=== PATIENT | female | born 1965 | race Caucasian/White ===

== ENCOUNTER 2022-11-12 07:26 | Day surgery (SDC) | payer BC, SELFPAY ==
[2022-11-12 07:46] VITALS: BP 145/68; PULSE 70; RESP 16; TEMP 36.5; O2SAT 99; BMI 33.1
[2022-11-12 07:55] LABS: Glucometer 156 mg/dL (74-106)
[2022-11-12] MEDS: LACTATED RINGER'S SOLUTION 1,000 ML 50 ML IV (07:56)
[2022-11-12 08:40] VITALS: BP 108/60; PULSE 68; RESP 16; O2SAT 97
--- NOTE | 2022-11-12 08:46 | PM.GSPRC ---
Date of procedure: 11/12/22 Indications for Procedure: This patient is a 56-year-old female who presents for screening colonoscopy. the risks benefits options and potential complications of the procedure were discussed in detail with the patient and they agreed to proceed and consent was signed. Pre-op diagnosis: colon cancer screening Post-op diagnosis: other (diverticuloss) Procedure: colonoscopy Anesthesia: MAC Surgeon: Abhishek Rodriguez Procedure Summary: The patient was brought to the endoscopy suite and placed in the left lateral decubitus position.? Under MAC the fiberoptic colonoscope was introduced into the rectum. This was gradually advanced through the colon to the cecum. The cecal landmarks were identified. The bowel prep was good. Gradual withdrawal of the colonoscope was then undertaken. No vascular polypoid or mucosal lesions were noted throughout the entire length of the colon. In the descending colon there were scattered diverticuli. The anal rectal canal was unremarkable. The colon was decompressed. Digital rectal exam was unremarkable. The procedure was ended and the patient was transferred to the recovery area in stable condition. Recommended follow-up colonoscopy in ten years. Estimated blood loss (mL): 0 Specimens: none Complications: No
[2022-11-12 08:55] VITALS: BP 146/75; PULSE 72; RESP 20; O2SAT 97
[2022-11-12 09:10] VITALS: BP 146/76; PULSE 68; RESP 20; O2SAT 99
== END 2022-11-12 09:20 | disposition home or self-care (01) ==
PROVIDERS: PCP Family Medicine; Visit Provider Surgery
PROC: (CPT 45378; principal; 2022-11-12 08:30)
DX: Z12.11 Encounter for screening for malignant neoplasm of colon (principal); K57.30 Diverticulosis of large intestine without perforation or abscess without bleeding; Z79.84 Long term (current) use of oral hypoglycemic drugs; E03.9 Hypothyroidism, unspecified
CPT/HCPCS: 45378; 36415; 82948; J2704

== ENCOUNTER 2022-11-19 09:30 | Outpatient (OUT) | payer BC, SELFPAY ==
--- NOTE | 2022-11-19 | ECG_ITS ---
The [facility] Test Date: 2022-11-19 Pat Name: Neha Hurtado Department: Room: - Gender: Female [employer]: : 1965 Requested By: KLAUDIA GOMEZ Order Number: [id number] Reading MD: RAZA ROMO Measurements Intervals [place] Rate: 62 P: 43 TX: 165 QRS: 32 QRSD: 93 T: 63 QT: 390 QTc: 397 Interpretive Statements SINUS RHYTHM NONSPECIFIC T-WAVE ABNORMALITY No previous ECG available for comparison Electronically Signed On 11-20-2022 14:31:16 EDT by RAZA ROMO
--- NOTE | 2022-11-19 09:43 | XR_ITS ---
The [address] [address] Patient Name: JEANNETTE BORJAS MRN: [id number] date: 1965 Sex: F Assigned Patient Location: CARD Current Patient Location: CARD Accession/Order Number: [id number] Exam Date: 11/19/2022 09:58 Report Date: 11/19/2022 10:17 At the request of: KLAUDIA GOMEZ Procedure: XR chest 2V EXAM: XR chest 2V HISTORY: Chronic cough R05.3 COMPARISON: None. TECHNIQUE: PA and lateral views of the chest. FINDINGS: The cardiomediastinal silhouette is normal. No focal consolidation is identified. There is no pneumothorax. No pleural effusion is noted. The osseous structures are intact. IMPRESSION: No acute cardiopulmonary process. Electronically authenticated by: JUWAN YOUNG Date: 11/19/2022 10:17
== END 2022-11-19 09:31 | disposition home or self-care (01) ==
LOC: CARD 09:31
PROVIDERS: PCP Family Medicine; Visit Provider Family Medicine
DX: R53.83 Other fatigue (principal); R05.3 Chronic cough
CPT/HCPCS: 71046; 93005

== ENCOUNTER 2023-01-05 11:04 | Outpatient (OUT) | payer BC, SELFPAY ==
[2023-01-05 11:33] LABS: Basophils Absolute Auto 0.1 10^3/uL (0.0-0.1); Basophils Percent Auto 0.5 % (0.2-2.0); Eosinophils Absolute Auto 0.2 10^3/uL (0.0-0.7); Eosinophils Percent Auto 2.1 % (0.9-7.0); Hematocrit 35.6 % (36.0-48.0); Hemoglobin 11.2 g/dL (12.0-16.0); Immature Granulocytes Abs Auto 0.02 10^3/uL (0.00-0.03); Immature Granulocytes Pct Auto 0.2 % (0.0-0.5); Lymphocytes Absolute Auto 2.5 10^3/uL (1.2-3.8); Lymphocytes Percent Auto 27.8 % (20.5-60.0); Mean Corpuscular HGB Conc 31.5 g/dL (29.9-35.2); Mean Corpuscular Hemoglobin 26.6 pg (26.7-34.0); Mean Corpuscular Volume 84.6 fL (81.0-99.0); Mean Platelet Volume 9.8 fL (9.5-13.5); Monocytes Absolute Auto 0.6 10^3/uL (0.3-0.8); Monocytes Percent Auto 6.9 % (1.7-12.0); Neutrophils Absolute Auto 5.7 10^3/uL (1.4-6.5); Neutrophils Percent Auto 62.5 % (43.0-75.0); Platelet Count 277 10^3/uL (150-450); Red Blood Count 4.21 10^6/uL (4.20-5.40); Red Cell Distribution Width 15.5 % (11.0-15.0); White Blood Count 9.2 10^3/uL (4.0-11.0)
[2023-01-05 12:03] LABS: Estimated Average Glucose 143 mg/dL; Glycohemoglobin A1C 6.6 % (4.5-6.2)
[2023-01-05 13:10] LABS: Free T4 0.92 ng/dL (0.76-1.46)
[2023-01-05 14:58] LABS: Anion Gap 13.4; BUN Creatinine Ratio 17.2; Calcium 9.4 mg/dL (8.5-10.1); Carbon Dioxide 27.7 mmol/L (21.0-32.0); Chloride 102 mmol/L (98-107); Estimated GFR (African America >60 (>=60); Estimated GFR (Non-African Ame >60 (>=60); Glucose 125 mg/dL (74-106); Potassium 4.1 mmol/L (3.5-5.1); Sodium 139 mmol/L (136-145); Thyroid Stimulating Hormone 2.448 uIU/mL (0.358-3.740)
== END 2023-01-05 11:05 | disposition home or self-care (01) ==
LOC: LAB 11:06
PROVIDERS: PCP Family Medicine; Visit Provider Family Medicine
DX: E03.9 Hypothyroidism, unspecified (principal); E11.65 Type 2 diabetes mellitus with hyperglycemia; D64.9 Anemia, unspecified
CPT/HCPCS: 36415; 80048; 83036; 84439; 84443; 85025

== ENCOUNTER 2023-02-09 19:33 | Outpatient (REF) | payer BC, SELFPAY ==
[2023-02-14 17:07] LABS: Age Gdln ACOG Testing Note (.); HPV Aptima Negative (Negative); IGP, Aptima HPV, rfx 16/18,45 Note (.)
== END 2023-02-09 19:34 | disposition home or self-care (01) ==
LOC: LAB 19:33
PROVIDERS: PCP Family Medicine; Visit Provider Physician Assistant
DX: Z12.4 Encounter for screening for malignant neoplasm of cervix (principal)
CPT/HCPCS: 87624; G0145

== ENCOUNTER 2023-09-03 07:50 | Outpatient (OUT) | payer BC, SELFPAY ==
--- NOTE | 2023-09-03 07:53 | XR_ITS ---
The [address] [address] Patient Name: LORY BORJAS MRN: [id number] date: 1965 Sex: F Assigned Patient Location: [facility] Current Patient Location: Accession/Order Number: [id number] Exam Date: 09/03/2023 08:20 Report Date: 09/04/2023 06:05 At the request of: KLAUDIA GOMEZ Procedure: XR chest 2V EXAMINATION: XR chest 2V HISTORY: Chronic cough R05.3 COMPARISON: No relevant comparison available. FINDINGS: LUNGS: No significant pulmonary parenchymal abnormalities. VASCULATURE: No increased pulmonary vasculature. PLEURA: No pneumothorax, effusion, or pleural thickening. CARDIAC: No cardiomegaly or cardiac silhouette abnormality. MEDIASTINUM: No visible mass or adenopathy. BONES: No fracture or visible bone lesion. OTHER: Negative. XR/XR chest 2V IMPRESSION: 1. Normal examination. Electronically authenticated by: DREW AGRAWAL Date: 09/04/2023 06:05
== END 2023-09-03 07:51 | disposition home or self-care (01) ==
LOC: RAD 07:50
PROVIDERS: PCP Family Medicine; Visit Provider Family Medicine
DX: R05.3 Chronic cough (principal); R53.82 Chronic fatigue, unspecified
CPT/HCPCS: 36415; 71046; 82306; 84443

== ENCOUNTER 2023-10-08 14:26 | Emergency (ER) | payer BC, SELFPAY ==
[2023-10-08] VITALS (11 sets, daily range): BP systolic 121–150; BP diastolic 67–87; PULSE 74; TEMP 36.8; O2SAT 97–100; BMI 31.5
--- NOTE | 2023-10-08 15:00 | CT_ITS ---
The [address] [address] Patient Name: LORY BORJAS MRN: [id number] date: 1965 Sex: F Assigned Patient Location: ER Current Patient Location: ED.MAIN Accession/Order Number: [id number] Exam Date: 10/08/2023 15:11 Report Date: 10/08/2023 15:50 At the request of: PRIMITIVO BAILEY Procedure: CT head/brain wo con CT head/brain wo con, CT cervical spine wo con, 10/08/2023 3:11 PM EDT INDICATION: HEAD INJURY COMPARISON: There is no appropriate prior study for comparison. TECHNIQUE: Axial images of 3 mm are obtained from the base of the skull to vertex completed with Axial images of 2 mm are obtained from base of skull to T2 without contrast. Dose reduction techniques were achieved by using automated exposure control and/or adjustment of mA and/or kV according to patient size and/or use of iterative reconstruction technique. FINDINGS: The cerebral and cerebellar sulci as well as ventricular system are appropriate for age. There is no intracranial mass, mass effect, midline shift, intra or extra-axial fluid collection. No acute territorial infarction or hemorrhage is noted. The visualized portions of orbits, mastoid air cells as well as paranasal sinuses are unremarkable. There is no suspicious osteolytic or osteoblastic lesion. No acute fracture or dislocation is noted. Multilevel degenerative changes of cervical spine are noted. CT/CT head/brain wo con IMPRESSION: No acute intracranial process is identified. No acute fracture. Electronically authenticated by: CARRIE DELONG Date: 10/08/2023 15:50
--- NOTE | 2023-10-08 15:01 | CT_ITS ---
The [address] [address] Patient Name: LORY BORJAS MRN: [id number] date: 1965 Sex: F Assigned Patient Location: ER Current Patient Location: ED.MAIN Accession/Order Number: [id number] Exam Date: 10/08/2023 15:11 Report Date: 10/08/2023 15:50 At the request of: PRIMITIVO BAILEY Procedure: CT cervical spine wo con CT head/brain wo con, CT cervical spine wo con, 10/08/2023 3:11 PM EDT INDICATION: HEAD INJURY COMPARISON: There is no appropriate prior study for comparison. TECHNIQUE: Axial images of 3 mm are obtained from the base of the skull to vertex completed with Axial images of 2 mm are obtained from base of skull to T2 without contrast. Dose reduction techniques were achieved by using automated exposure control and/or adjustment of mA and/or kV according to patient size and/or use of iterative reconstruction technique. FINDINGS: The cerebral and cerebellar sulci as well as ventricular system are appropriate for age. There is no intracranial mass, mass effect, midline shift, intra or extra-axial fluid collection. No acute territorial infarction or hemorrhage is noted. The visualized portions of orbits, mastoid air cells as well as paranasal sinuses are unremarkable. There is no suspicious osteolytic or osteoblastic lesion. No acute fracture or dislocation is noted. Multilevel degenerative changes of cervical spine are noted. CT/CT cervical spine wo con IMPRESSION: No acute intracranial process is identified. No acute fracture. Electronically authenticated by: CARRIE DELONG Date: 10/08/2023 15:50
--- NOTE | 2023-10-08 16:39 | XR_ITS ---
The [address] [address] Patient Name: LORY BORJAS MRN: [id number] date: 1965 Sex: F Assigned Patient Location: ER Current Patient Location: ER Accession/Order Number: [id number] Exam Date: 10/08/2023 17:00 Report Date: 10/08/2023 17:44 At the request of: PRIMITIVO BAILEY Procedure: XR hand RT 2V EXAM: XR hand RT 2V HISTORY: injury COMPARISON: None. TECHNIQUE: 3 views of the right hand. FINDINGS: Bones: No acute fracture or aggressive appearing bony lesion. Joints: Normal alignment. No significant osteoarthritic change. Soft tissues: There is laceration overlying medial fifth digit. No radiopaque foreign body or gas is noted within the soft tissue. XR/XR hand RT 2V IMPRESSION: No evidence of fracture. Electronically authenticated by: JEFFREY ALVAREZ Date: 10/08/2023 17:44
--- NOTE | 2023-10-08 16:39 | XR_ITS ---
The [address] [address] Patient Name: LORY BORJAS MRN: [id number] date: 1965 Sex: F Assigned Patient Location: ER Current Patient Location: ER Accession/Order Number: [id number] Exam Date: 10/08/2023 17:00 Report Date: 10/08/2023 17:46 At the request of: PRIMITIVO BAILEY Procedure: XR knee RT 3V EXAM: XR knee RT 3V HISTORY: injury COMPARISON: None. TECHNIQUE: 3 views of the right knee. FINDINGS: Bones: No acute fracture or aggressive appearing bony lesion. Joints: Normal alignment. No effusion. No significant degenerative findings. Soft tissues: Unremarkable. XR/XR knee RT 3V IMPRESSION: No evidence of fracture. Electronically authenticated by: JEFFREY ALVAREZ Date: 10/08/2023 17:46
[2023-10-08] MEDS: ONDANSETRON PF 4 MG/2 ML VIAL IV (17:28)
[2023-10-08] MEDS: ADACEL DIPH,PERTUSS(ACELL),TET VAC/PF 0.5 ML ADULT SYRINGE IM (18:12)
[2023-10-08] MEDS: TRAMADOL HCL 50 MG TABLET PO (18:36)
[2023-10-08] MEDS: BACITRACIN OINTMENT 28.4 GM TUBE 1 APPLIC TOPICAL (18:53)
--- NOTE | 2023-10-09 08:07 | ED.GENADUL1 ---
HPI HPI - General Adult General Chief complaint: Head Injury Stated complaint: hand and face injury due to a fall Time Seen by Provider: 10/08/23 16:12 Source: patient Mode of arrival: walk-in Limitations: no limitations History of Present Illness HPI narrative: The patient mentioned that she had a trip on the sidewalk almost within the last hour, there was no loss of consciousness but he did she fell and hit her face and her right side of the body, she was complaining of right knee pain as well as right hand pain, there was no other injury she did have some nausea when she fell down and she does take Brilinta Related Data Home Medications ?Medication ?Instructions ?Recorded ?Confirmed esomeprazole magnesium 20 mg 20 mg PO DAILY 11/01/22 10/08/23 capsule,delayed release (Nexium) metformin 850 mg tablet 1,000 mg PO BID 11/01/22 10/08/23 sertraline 25 mg tablet 25 mg PO DAILY 11/01/22 10/08/23 aspirin 81 mg chewable tablet 1 tab PO DAILY 10/08/23 10/08/23 atorvastatin 40 mg tablet 40 mg PO BEDTIME 10/08/23 10/08/23 celecoxib 200 mg capsule 200 mg PO Q24H 10/08/23 10/08/23 lisinopril 5 mg tablet 5 mg PO DAILY 10/08/23 10/08/23 nitroglycerin 0.4 mg sublingual 0.4 mg sublingual Q5M PRN chest 10/08/23 10/08/23 tablet pain ticagrelor 90 mg tablet (Brilinta) 90 mg PO Q12H 10/08/23 10/08/23 Previous Rx's ?Medication ?Instructions ?Recorded tramadol 50 mg tablet 50 mg PO BID PRN pain 3 days #6 10/08/23 tabs Allergies Allergy/AdvReac Type Severity Reaction Status Date / Time prochlorperazine Allergy Agitated Verified 11/01/22 12:32 [From Compazine] Opioid HPI Opioid Management Most Recent Opioid Data: Last Pain Scale 8 10/08/23 18:36 Last JUL Pain Assessment 10/08/23 18:36 Review of Systems ROS Status of ROS 10 or more systems reviewed and unremarkable except as noted in history and below [facility] Medical History (Updated 10/08/23 @ 18:33 by Sonia Monique MD) Prophylactic gland removal ?Z40.00 - Encounter for prophylactic removal of unspecified organ (ICD-10) Menopause ?Z78.0 - Asymptomatic menopausal state (ICD-10) COVID-19 ?U07.1 - COVID-19 (ICD-10) Anxiety ?F41.9 - Anxiety disorder, unspecified (ICD-10) Prediabetes ?R73.03 - Prediabetes (ICD-10) Hypothyroidism ?E03.9 - Hypothyroidism, unspecified (ICD-10) Postoperative nausea and vomiting ?R11.2 - Nausea with vomiting, unspecified (ICD-10) ?Z98.890 - Other specified postprocedural states (ICD-10) Surgical History (Updated 11/01/22 @ 12:45 by Jennifer Caballero NP) H/O foot surgery ?Z98.890 - Other specified postprocedural states (ICD-10) Family History (Updated 11/01/22 @ 12:45 by Jennifer Caballero NP) Other Family history of heart disease Family history of hypertension Family history of myocardial infarction Social History (Updated 11/01/22 @ 12:34 by Jennifer Caballero NP) Within the past year, how often did you have a drink containing alcohol: 2-3 times a week Smoking status: Never smoker Non-prescribed substance use: denies use 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 General: Well-appearing and in no apparent distress. Skin: Warm, dry, no pallor noted. No rash. Head: Normocephalic, atraumatic. Neck: Supple, non-tender. Eye: Pupils are equal, round and EOMI. No scleral icterus. Ears, Nose, Mouth, and Throat: TM are clear, no nasal mucosal hypertrophy. Oral mucosa is moist, no posterior oropharynx erythema, uvula is mid-line Cardiovascular: Regular Rate and Rhythm without murmur, gallop or rub. Respiratory: No accessory muscle use or respiratory distress. Lungs are clear to auscultation, no wheezing, rales or rhonchi Chest Wall: no tenderness Back: No midline thoracic or lumbar vertebral tenderness. No CVA tenderness Musculoskeletal: normal ROM, no calf or popliteal tenderness, the patient have a old contusion to the right knee also consider contusion to the small finger on the right hand, there is a mild abrasion on the right knee that is measuring 1 to 2 cm superficial linear, the patient also have a small abrasion to the lateral aspect of the small finger mostly to the palmar aspect, there is also no limitation of movement of the right knee but there is pain with movement and the patient also have no limitation of movement of the right hand small finger although the patient have swelling that limiting full hand fist GI: Abdomen is soft, non-distended. Normal bowel sounds. No masses appreciated. No tenderness to palpation. No rebound, guarding, or rigidity noted. Neurological: A&O x4. No cranial nerve dysfunction observed. No truncal ataxia. Moves all extremities. Sensation intact. Psychiatric: Cooperative and interactive. Normal mood and affect. Constitutional Vital Signs, click to edit/add: Last Vital Signs Temp 98.3 F 10/08/23 14:51 Pulse 74 10/08/23 14:51 Resp 18 10/08/23 14:51 BP 136/75 10/08/23 18:00 Pulse Ox 98 10/08/23 18:00 O2 Del Method Room Air 10/08/23 14:51 Course Vital Signs Vital signs: Vital Signs Temperature 98.3 F 10/08/23 14:51 Pulse Rate 74 10/08/23 14:51 Respiratory Rate 18 10/08/23 14:51 Blood Pressure 150/77 H 10/08/23 14:51 Pulse Oximetry 98 10/08/23 14:51 Oxygen Delivery Method Room Air 10/08/23 14:51 Temperature 98.3 F 10/08/23 14:51 Pulse Rate 74 10/08/23 14:51 Respiratory Rate 18 10/08/23 14:51 Blood Pressure 136/75 10/08/23 18:00 Pulse Oximetry 98 10/08/23 18:00 Oxygen Delivery Method Room Air 10/08/23 14:51 Medical Decision Making MDM Narrative Medical decision making narrative: The patient needed a tetanus booster The patient CT head as well as CT cervical spine showed no acute pathology she was initially placed in cervical collar that was removed when the CT scan came back The patient also had a nausea medication with Zofran after which the patient provided with tramadol for the pain The patient was discharged home with tramadol as well as Mike wrap to the right knee with limitation of movement and rest, X-ray of the right hand showed no fracture as well as x-ray of the right knee The patient had a finger splint applied to the right small finger as well as cleaning the wound thoroughly and applying a Band-Aid The patient was instructed about being monitored as well as being brought to the ER in case of any new symptoms in the next 12 hours at least and because of her history of anticoagulation she is to be very cautious in case of any new symptoms she is to come back to the ER The patient is to follow up with primary care physician in next 2-3 days or to return to the emergency department should any of the signs or symptoms worsen or new symptoms develop. The patient agrees with the following Diagnosis and Treatment plan and the patient will be discharged home. Discharge Plan Discharge Stand Alone Forms: Portal Instructions Chief Complaint: Head Injury Clinical Impression: Contusion of finger, Contusion of knee, Closed head injury Patient Disposition: Home, Self-Care Time of Disposition Decision: 18:33 Condition: Good Prescriptions / Home Meds: New tramadol 50 mg tablet 50 mg PO BID PRN (Reason: pain ) 3 Days Qty: 6 0RF No Action sertraline 25 mg tablet 25 mg PO DAILY metformin 850 mg tablet 1,000 mg PO BID esomeprazole magnesium [Nexium] 20 mg capsule,delayed release(DR/EC) 20 mg PO DAILY atorvastatin 40 mg tablet 40 mg PO BEDTIME aspirin 81 mg tablet,chewable 1 tab PO DAILY celecoxib 200 mg capsule 200 mg PO Q24H lisinopril 5 mg tablet 5 mg PO DAILY nitroglycerin 0.4 mg tablet, sublingual 0.4 mg sublingual Q5M PRN (Reason: chest pain) Brilinta 90 mg tablet 90 mg PO Q12H Print Language: [place] Instructions: Head Injury (ED), Contusion in Adults (ED) Referrals: Fabiola Purvis MD [Primary Care Provider] - 1 week Discharge Date/Time: 10/08/23 18:56
== END 2023-10-08 18:56 | disposition home or self-care (01) ==
PROVIDERS: Emergency Provider Emergency Medicine; PCP Family Medicine
DX: S80.01XA Contusion of right knee, initial encounter (principal); S60.051A Contusion of right little finger without damage to nail, initial encounter; S09.8XXA Other specified injuries of head, initial encounter; W10.1XXA Fall (on)(from) sidewalk curb, initial encounter; Z23 Encounter for immunization; Z79.899 Other long term (current) drug therapy
CPT/HCPCS: 29130; 70450; 72125; 73120; 73562; 90471; 90715; 96374; 99285

== ENCOUNTER 2024-02-27 06:55 | Outpatient (OUT) | payer BC, SELFPAY ==
--- OUTSIDE RECORDS SUMMARY | 2024-02-27 07:00 | XMS_ITS | CCD ---
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 Name Role Phone Klaudia Gomez [facility] [place] [place] BENJAMIN Primary Care Unavailable KARASIK ., DR MCDANIEL Admitting Unavailabl e KARASIK ., DR MCDANIEL Attending Unavailabl e KARASIK ., DR MCDANIEL Consulting Unavailsimeon e JASON, DR KLAUDIA Friedman Attending Unavailable GOMEZ, DR KLAUDIA Friedman Consulting Unavailable GOMEZ, DR KLAUDIA Friedman Primary Care Unavailable GOMEZ, DR KLAUDIA Friedman Admitting Unavailable GOMEZ, DR KLAUDIA Friedman Attending Unavailable [facility], DR BENJAMIN Primary Care Unavailable JASON, DR KLAUDIA Friedman Consulting Unavailable GOMEZ, DR KLAUDIA Friedman Admitting Unavailable KARASIK ., DR MCDANIEL Consulting Unavailsimeon e GOMEZ, DR KLAUDIA Friedman Primary Care Unavailable KARASIK ., DR MCDANIEL Admitting Unavailabl e KARASIK ., DR MCDANIEL Attending Unavailabl e [facility], DR JOYCE Corrigan Consulting Unavailable GOMEZ, DR KLAUDIA Friedman Admitting Unavailable GOMEZ, DR KLAUDIA Friedman Attending Unavailable GOMEZ, DR KLAUDIA Friedman Consulting Unavailable JASON, DR KLAUDIA Friedman Primary Care Unavailable ASHLEY PERLA Consulting Unavailable Klaudia Gomez MD Primary Care Provider [phone] MD Klaudia Gomez Primary Care Provider [phone] MD Haresh Middleton Attending Provider Haresh Middleton Unavailable MD Jenifer Morgan Referring Provider [phone] ALEXIA MCKEON Attending Unavailable KLAUDIA GOMEZ Primary Care Unavailable Klaudia Gomez MD Primary Care Provider TESS JACKSON Attending Unavailable KLAUDIA GOMEZ Referring Unavailable KLAUDIA GOMEZ Primary Care Unavailable KLAUDIA GOMEZ Primary Care Unavailable GOMEZ, KLAUDIA E Primary Care Unavailable GOMEZ, KLAUDIA E Primary Care Unavailable ABHYANKAR, JOSE Referring Unavailable ABHYANKAR, JOSE Attending Unavailable GOMEZ, KLAUDIA E Primary Care Unavailable ABHYANKAR, JOSE Referring Unavailable GOMEZ, KLAUDIA E Primary Care Unavailable ABHYANKAR, JOSE Referring Unavailable GOMEZ, KLAUDIA E Primary Care Unavailable ABHYANKAR, JOSE Referring Unavailable GOMEZ, KLAUDIA E Primary Care Unavailable ABHYANKAR, JOSE Referring Unavailable RUBEN WIGGINS Attending Unavailable ABHYANKAR, JOSE Referring Unavailable GOMEZ, KLAUDIA E Primary Care Unavailable RUBEN WIGGINS Attending Unavailable ABHYANKAR, JOSE Referring Unavailable GOMEZ, KLAUDIA E Primary Care Unavailable GOMEZ, KLAUDIA E Primary Care Unavailable ABHYANKAR, JOSE Referring Unavailable GOMEZ, KLAUDIA E Primary Care Unavailable ABHYANKAR, JOSE Attending Unavailable GOEMZ, KLAUDIA E Primary Care Unavailable GOMEZ, KLAUDIA E Primary Care Unavailable ABHYANKAR, JOSE Referring Unavailable GOMEZ, KLAUDIA E Primary Care Unavailable ABHYANKAR, JOSE Referring Unavailable JASON, KLAUDIA E Primary Care Unavailable JASON, KLAUDIA E Primary Care Unavailable Haresh Middleton Admitting Unavai lable Klaudia Gomez E Primary Care Unavailable Jenifer Morgan Referring Unavailable Haresh Middleton Attending Klaudia Metzger Primary Care Unavailable Haresh Middleton Attending Haresh Galvez Admitting Unavai lable Haresh Middleton Attending Haresh Galvez Admitting Unavai Klaudia Isaac Primary Care Unavailable Klaudia Gomez Attending Unavailable Jason, Klaudia E Admitting Unavailable Gomez, Klaudia E Primary Care Unavailable Jason, Klaudia E Primary Care Unavailable Haresh Middleton Admitting Unavai lable Emi, Haresh Villeda Attending Klaudia Metzger Primary Care Unavailable Haresh Middleton Attending Haresh Galvez Admitting MD Klaudia Metzger Primary Care Provider [phone] MD Klaudia Gomez Attending Provider Allergies Allergy Classification Reported Allergen(s) Allergy Type Date of Onset Reaction(s) Facility Latex (1 source) Latex Substance Allergy 023 Unknown [facility] Prochlorperazine (1 source) Prochlorperazine Drug Allergy 005 [facility] (6 sources) Prochlorperazine; Translations: [Compazine] Drug Allergy 017 anxious feelings [facility] Repository (20 sources) Latex; Translations: [LATEX] Drug allergy 018 Unknown [facility] (1 source) Allergies Reconciled Propensity to adverse reactions Unknown [facility] Other (8 sources) Compazine *ANTIPSYCHOTICS/ANT IMANIC AGENTS* Propensity to adverse reactions Comment:psych ological changes--pt states she tries to climb souza [facility] Other (1 source) patient allergy list reviewed by nurse or physicia Propensity to adverse reactions Comment:Done [facility] Other (17 sources) Prochlorperazine; Translations: [PROCHLORPERAZINE EDISYLATE] Drug Allergy 005 [facility] (6 sources) Prochlorperazine; Translations: [PROCHLORPERAZINE] Drug Allergy 024 Agitated, Comment:psych ological changes--pt states she tries to cli... [facility] (1 source) Latex Drug allergy (disorder) 024 [facility] Repository Medications Current Medications Medication Drug Class(es) Dates Sig (Normalized) Sig (Original) [id number] 200 actuat albuterol 0.09 mg/actuat metered dose inhaler (20 sources) beta2-Adrenergic Agonist Start: 07-06-2023 End: 08-29-2023 take 2 puff(s) by inhalation every four hours as needed Albuterol Sulfate Active 2 INH INHALATION Every 4 hours August 29, 2023 11:12am FreeTextSi puff Inhalation every 4 hrs prn; Note: Source Status: Taking; Refills: 1; Qty: 1 Each; Provider: Jason Friedman Start: 10-07-2022 take 2 puff(s) by in halation every four hours as needed Albuterol Sulfate HFA 108 (90 Base) MCG/ACT 2 puff Inhalation every 4 hrs prn September, Active Start: 10-07-2022 take 2 puff(s) by in halation every four hours as needed Albuterol Sulfate HFA 108 (90 Base) MCG/ACT 2 puff Inhalation every 4 hrs prn September, Active Start: 09-13-2020 take 2 puff(s) by in halation every four hours as needed Albuterol Sulfate HFA 108 (90 Base) MCG/ACT 2 puffs as needed Inhalation every 4 hrs for 30 days September, Not-Taking take 2 puff(s) by in halation every six hours as needed for wheezing albuterol HFA (PROVENTIL HFA) inhaler Inhale 2 Puffs as instructed every 6 hours as needed for wheezing/shortness of breath. Active Comment on above: Inhale 2 Puffs as in structed every 6 hours as needed for wheezing/shortness of breath. ascorbic acid 250 mg oral tablet (20 sources) Vitamin C Start: take 1 tablet by mouth once daily Ascorbic Acid (Vitamin C) Active 250 MG PO Daily July 06, 2023 1:00am FreeTextSi tablet Orally Once a day; Note: Source Status: Taking; Provider: Emi Hutson ( ) ascorbic acid (V ITAMIN C ORAL) Take by mouth. Active take 1 tablet by phu th every twenty-four hours Vitamin C 250 MG 1 tablet Orally Once a day Active ascorbic acid (V ITAMIN C ORAL) Take by mouth. 0 Active Comment on above: Take by mouth. atorvastatin 40 mg oral tablet (13 sources) HMG-CoA Reductase Inhibitor Start: 07-08-2023 atorvastatin (LIPITOR) 40 mg tablet Atorvastatin Active 40 MG PO Daily July 08, 2023 12:00am 07/08/2023 Active Start: 07-08-2023 End: 09-08-2023 take 40 mg by mouth once daily Atorvastatin Active 40 MG PO Daily September 08, 2023 4:53pm B-complex with vitamin C ( TAMIN B COMPLEX-C ORAL) (16 sources) B-complex with v itamin C (VITAMIN B COMPLEX-C ORAL) Take by mouth. Active B-complex with v itamin C (VITAMIN B COMPLEX-C ORAL) Take by mouth. 0 Active Comment on above: Take by mouth. celecoxib 200 mg oral capsule (8 sources) Nonsteroidal Anti-inflammatory Drug Start: celecoxib (CELEBREX) 200 mg capsule 09/22/2023 Active clopidogrel 75 mg oral tablet (4 sources) P2Y12 Platelet Inhibitor Start: take 1 tablet by mouth once daily Clopidogrel (Plavix) 75 mg tablet Active 75 MG PO Daily December 27, 2023 4:07pm Start: 10-31-2023 End: 12-27-2023 Clopidogrel (Plavix) 75 mg t ablet Discontinued 75 MG PO Daily October 31, 2023 12:00am December 27, 2023 4:07pm give Plavix 600 mg X1, then 75 mg daily after. esomeprazole 20 mg delayed release oral capsule (20 sources) Proton Pump Inhibitor Start: 07-06-2023 End: 10-31-2023 take 1 capsule by mouth once daily Esomeprazole Magnesium (Nexium) 20 mg capsule,delayed release(DR/EC) Active 40 MG PO Daily October 31, 2023 2:23pm FreeTextSi capsule Orally Once a day; Note: Source Status: Taking; Provider: Jason Friedman Comment on above: Take 20 mg by mouth once daily. folic acid 1 mg oral tablet (10 sources) Start: 10-03-2023 End: 12-20-2024 take 1 mg by mouth once daily Folic Acid Active 1 MG PO Daily October 31, 2023 12:00am losartan potassium 50 mg oral tablet (6 sources) Angiotensin 2 Receptor Brii Start: 02-06-2024 take 50 mg by mouth once daily Losartan Active 50 MG PO Daily 90 February 06, 2024 12:00am Start: 10-31-2023 End: 02-06-2024 take 25 mg by mouth once daily Losartan Discontinued 2 5 MG PO Daily December 30, 2023 8:04am February 06, 2024 2:22pm metFORMIN (20 sources) Biguanide Start: 10-13-2023 Metformin Acti ve 0 .ROUTE .COMPLEX 180 October 13, 2023 8:44am TAKE 1 TABLET TWICE A DAY WITH MEALS Start: 10-07-2022 End: 10-13-2023 take 1 tablet by mouth twice daily Metformin Discontinued 1000 MG PO Twice daily July 06, 2023 1:00am October 13, 2023 8:44am FreeTextSi tablet with a meal Orally bid; Note: Source Status: Taking; Refills: 2; Qty: 180 Tablet; Provider: Jason Friedman take 1 tablet by phu th every twenty-four hours metFORMIN HCl 1000 MG 1 tablet with a meal Orally Once a day Not-Taking take 1 tablet by phu th twice daily metFORMIN HCl 850 mg TAKE 1 TABLET BY MOUTH TWICE DAILY for 90 Active Comment on above: Take 1,000 mg by phu th twice daily with meals. nitroglycerin 0.4 mg sublingual tablet (13 sources) Nitrate Vasodilator Start: 07-08-19 End: 08-15-19 Nitroglycerin Active 0.4 MG SUBLINGUAL Q5M August 15, 2023 12:53pm until response; do not exceed 3 doses per event predniSONE 20 mg oral tablet (2 sources) Start: 10-28-19 take 2 tablets by mouth every twenty-four hours predniSONE 20 MG 2 tablets Orally Once a day for 5 days Oct, Active Start: 10-07-2022 take 2 tablets by mo [facility] every twenty-four hours predniSONE 20 MG 2 tablets Orally Once a day for 5 days September, Active sertraline 25 mg oral tablet (20 sources) Serotonin Reuptake Inhibitor Start: 07-21-2023 End: 02-08-2024 Sertraline Active 0 .ROUTE .COMPLEX 90 February 08, 2024 10:22am TAKE 1 TABLET DAILY Start: 07-06-2023 End: 07-21-2023 Sertraline Discontinued 25 M G PO Daily July 06, 2023 1:00am July 21, 2023 5:06pm FreeTextSig: TAKE 1 TABLET BY MOUTH DAILY Orally Once a day; Note: Source Status: Taking; Refills: 0; Provider: Jason Friedman Comment on above: Take 25 mg by mouth once daily. Completed/Discontinued Medications Medication Drug Class(es) Dates Sig (Normalized) Sig (Original) amoxicillin 875 mg / clavulanate 125 mg oral tablet (1 source) Penicillin-class Antibacterial Start: 09-13-2020 take 1 tablet by mouth every twelve hours Amoxicillin-Pot Clavulanate 875-125 MG 1 tablet Orally every 12 hrs for 10 day(s) September, Not-Taking aspirin 81 mg chewable tablet (15 sources) Platelet Aggregation Inhibitor, Nonsteroidal Anti-inflammatory Drug Start: 07-08-2023 End: 08-16-2023 take 81 mg by mouth once daily Aspirin Discontinued 81 MG PO Daily August 12, 2023 8:13am August 16, 2023 8:18am aspirin, enteric coated (ASPIRIN, ENTERIC COATED) 81 mg EC tablet Take 81 mg by mouth. Active dexamethasone 1 mg/ml / neomycin 3.5 mg/ml / polymyxin b 28131 unt/ml ophthalmic suspension (1 source) Aminoglycoside Antibacterial, Polymyxin-class Antibacterial, Corticosteroid Start: 02-21-2017 take 2 drop(s) into the eye(s) three times daily Maxitrol 3.5-40434-5.1 2 drops into affected eye Ophthalmic Three times a day for 7 days Feb, Not-Taking famotidine 40 mg oral tablet (2 sources) Histamine-2 Receptor Antagonist Start: 10-31-2023 End: 02-06-2024 take 1 tablet by mouth once daily at bedtime Famotidine (Pepcid) 40 mg tablet Discontinued 40 MG PO Daily at bedtime October 31, 2023 12:00am February 06, 2024 2:01pm Ketoprofen (1 source) Nonsteroidal Anti-inflammatory Drug Ketoprofen Not-Taking levothyroxine (1 source) l-Thyroxine Levothyroxine Sodium Not-Taking lisinopril 5 mg oral tablet (12 sources) Angiotensin Converting Enzyme Inhibitor Start: 07-08-2023 End: 10-31-2023 take 5 mg by mouth once daily Lisinopril Discontinued 5 MG PO Daily July 26, 2023 3:26pm October 31, 2023 3:12pm new start methylPREDNISolone 4 mg oral tablet (1 source) Corticosteroid Start: 09-13-2020 Medrol 4 MG as directed Orally for 6 days September, Not-Taking metoprolol tartrate 50 mg oral tablet (1 source) beta-Adrenergic Brii take 1 tablet by mouth every twelve hours Lopressor 50 MG 1 tablet with food Orally Twice a day Not-Taking ticagrelor 90 mg oral tablet (13 sources) Start: 07-08-2023 End: 10-31-2023 take 1 tablet by mouth twice daily Ticagrelor (Brilinta) 90 mg tablet Discontinued 90 MG PO Twice daily 180 July 26, 2023 3:10pm October 31, 2023 3:08pm Triamcinolone (12 sources) Corticosteroid Start: 08-05-2016 KENALOG - 10 mg Jul, 40 mg vitamin b12 1 mg/ml injectable solution (6 sources) Vitamin B12 Start: 02-15-2024 End: 02-15-2024 inject 1 dose by intramuscular injection once 1,000 mcg, INTRAMUSCULAR, ONCE, 1 dose, On Tue02/15/24 at 1500 Start: 01-18-2024 End: 01-18-2024 inject 1 dose by intramuscular injection once 1,000 mcg, INTRAMUSCULAR, ONCE, 1 dose, On Tue01/18/24 at 1430 Start: 12-21-2023 End: 12-21-2023 cyanocobalamin 1,000 mcg inj ection Start: 11-28-2023 End: 11-28-2023 cyanocobalamin 1,000 mcg inj ection Start: 10-31-2023 End: 10-31-2023 cyanocobalamin 1,000 mcg inj ection Start: 10-03-2023 End: 10-03-2023 cyanocobalamin 1,000 mcg inj ection Problems Active Problems Problem Classification Problem Date Documented Da te Episodic/Chronic Allergic reactions (8 sources) Contact dermatitis due to plants; Translations: [Unspecified contact dermatitis due to plants, except food] Episodic Anxiety disorders (20 sources) Generalized anxiety disorder; Translations: [Generalized anxiety disorder] Chronic Cancer of cervix (8 sources) Cervicovaginal cytology: Low grade squamous intraepithelial lesion; Translations: [Low grade squamous intraepithelial lesion on cytologic smear of cervix (LGSIL)] Episodic Coronary atherosclerosis and other heart disease (16 sources) Angina pectoris; Translations: [Angina pectoris, unspecified] Onset: 07-08-2023 07-08-2023 Chronic Coronary atherosclerosis and other heart disease (4 sources) Patient post percutaneous transluminal coronary angioplasty; Translations: [Coronary angioplasty status] 07-13-2023 Episodic Deficiency and other anemia (3 sources) Anemia, unspecified Episodic Deficiency and other anemia (3 sources) Anemia; Translations: [Anemia, unspecified] 01-26-2023 Episodic Deficiency and other anemia (20 sources) Iron deficiency anemia secondary to inadequate dietary iron intake; Translations: [Other iron deficiency anemias] Onset: 02-07-2023 02-07-2023 Episodic Deficiency and other anemia (3 sources) Iron deficiency anemia; Translations: [Iron deficiency anemia, unspecified] Episodic Deficiency and other anemia (1 source) Iron deficiency anemia, unspecified Episodic Deficiency and other anemia (1 source) Megaloblastic anemia due to vitamin B>12< deficiency; Translations: [Other megaloblastic anemias, not elsewhere classified] 12-21-2023 Episodic Diabetes mellitus with complications (20 sources) Type 2 diabetes mellitus with hyperglycemia; Translations: [Type 2 diabetes mellitus] Onset: 02-19-2022 Chronic Diabetes mellitus without complication (20 sources) Hyperglycemia; Translations: [Other abnormal glucose] Onset: 09-02-2022 Episodic Disorders of lipid metabolism (20 sources) Pure hypercholesterolemia; Translations: [Pure hypercholesterolemia, unspecified] Onset: 02-03-2018 Resolved: 06-28-2019 Chronic Esophageal disorders (12 sources) Esophageal reflux finding; Translations: [Esophageal reflux] Onset: 02-03-2018 Resolved: 06-28-2019 02-08-2024 Chronic Genitourinary symptoms and ill-defined conditions (4 sources) Urinary incontinence; Translations: [Unspecified urinary incontinence] 02-08-2024 Chronic Genitourinary symptoms and ill-defined conditions (8 sources) Dysuria; Translations: [Dysuria] Episodic Headache; including migraine (1 source) Headache; including migraine Onset: 08-17-2023 Malaise and fatigue (11 sources) Fatigue; Translations: [Chronic fatigue, unspecified] Chronic Malaise and fatigue (14 sources) Other fatigue; Translations: [Fatigue] Onset: 02-17-2022 Episodic Menopausal disorders (8 sources) Postmenopausal bleeding; Translations: [Postmenopausal bleeding] Chronic Mood disorders (4 sources) Depressive disorder; Translations: [Depression] 02-08-2024 Chronic Nausea and vomiting (1 source) Vomiting Onset: 08-17-2023 Episodic Noninfectious gastroenteritis (1 source) Noninfective gastroenteritis and colitis, unspecified; Translations: [Noninfective gastroenteritis and colitis, unspecified] Onset: 08-17-2023 Episodic Nutritional deficiencies (1 source) Folic acid deficiency; Translations: [Deficiency of other specified B group vitamins] 12-21-2023 Episodic Other circulatory disease (8 sources) Elevated blood-pressure reading without diagnosis of hypertension; Translations: [Elevated blood-pressure reading, without diagnosis of hypertension] Episodic Other connective tissue disease (2 sources) Pain in thumb ; Translations: [Pain in left finger(s)] 02-08-2024 Episodic Other connective tissue disease (3 sources) Pain in left finger(s); Translations: [Pain in limb] Onset: 02-20-2024 02-08-2024 Episodic Other gastrointestinal disorders (1 source) Diarrhea Onset: 08-17-2023 Episodic Other lower respiratory disease (2 sources) Chronic cough; Translations: [Chronic cough] 08-30-2023 Episodic Other nervous system disorders (12 sources) Cubital tunnel syndrome; Translations: [Lesion of ulnar nerve, right upper limb] Chronic Other nutritional; endocrine; and metabolic disorders (8 sources) Obese class I; Translations: [Body mass index (BMI) 32.0-32.9, adult] Chronic Other upper respiratory infections (8 sources) Chronic sinusitis; Translations: [Chronic sinusitis, unspecified] Chronic Residual codes; unclassified (5 sources) Obstructive sleep apnea (adult) (pediatric); Translations: [OBSTRUCTIVE SLEEP APNEA] Onset: 03-10-2022 Chronic Residual codes; unclassified (7 sources) Obstructive sleep apnea syndrome; Translations: [Obstructive sleep apnea (adult) (pediatric)] Chronic Residual codes; unclassified (8 sources) Postmenopausal state; Translations: [Asymptomatic menopausal state] Episodic Spondylosis; intervertebral disc disorders; other back problems (1 source) Spondylosis without myelopathy or radiculopathy, cervical region; Translations: [SPONDYLS W/O MYELO-/RADICULOP CERV] Onset: 09-02-2022 Chronic Spondylosis; intervertebral disc disorders; other back problems (2 sources) Cervicalgia; Translations: [CERVICALGIA] Onset: 09-02-2022 Episodic Thyroid disorders (20 sources) Hypothyroidism; Translations: [Hypothyroidism, unspecified] Onset: 09-02-2022 Chronic Unclassified (1 source) OPENED IN ERROR 09-27-2023 Unclassified (1 source) Encounter for preprocedural laboratory examination; Translations: [Encounter for preprocedural laboratory examination] Onset: 07-06-2023 Unclassified (1 source) Chronic fatigue, unspecified; Translations: [Chronic fatigue, unspecified] Onset: 06-17-2023 Unclassified (1 source) Myalgic encephalomyelitis/chr onic fatigue syndrome; Translations: [Myalgic encephalomyelitis/chr onic fatigue syndrome] Onset: 05-13-2023 Urinary tract infections (8 sources) Urinary tract infectious disease; Translations: [Urinary tract infection, site not specified] Episodic Past or Other Problems Problem Classification Problem Date Documented Date Episodic/Chronic Abdominal pain (8 sources) Generalized abdominal pain; Translations: [Generalized abdominal pain] Onset: 02-09-2018 Resolved: 06-28-2019 Episodic Cardiac dysrhythmias (4 sources) Palpitations; Translations: [Palpitations] Onset: 05-13-2023 Episodic Headache; including migraine (8 sources) Migraine without aura, not refractory ; Translations: [Migraine, unspecified, not intractable, without status migrainosus] Onset: 02-03-2018 Resolved: 12-25-2021 Chronic Immunizations and screening for infectious disease (1 source) Encounter for screening for human papillomavirus (HPV); Translations: [ENC SCREENING HUMAN PAPILLOMAVIRUS] Onset: 12-29-2021 Episodic Other aftercare (1 source) Encounter for other specified aftercare; Translations: [Encounter for other specified aftercare] Onset: 11-11-2023 Episodic Other female genital disorders (8 sources) Noninflammatory disorder of the vagina; Translations: [Other specified noninflammatory disorders of vagina] Resolved: 12-25-2021 Episodic Other lower respiratory disease (8 sources) Disorder of lung; Translations: [Other diseases of lung, not elsewhere classified] Onset: 02-03-2018 Resolved: 06-28-2019 Episodic Other nervous system disorders (8 sources) Lesion of ulnar nerve; Translations: [Lesion of ulnar nerve] Onset: 02-03-2018 Resolved: 06-28-2019 Chronic Other screening for suspected conditions (not mental disorders or infectious disease) (20 sources) Encounter for screening mammogram for malignant neoplasm of breast; Translations: [Encounter for screening for malignant neoplasm of cervix] Onset: 02-03-2018 Episodic Other skin disorders (17 sources) Hidradenitis; Translations: [Hidradenitis suppurativa] Onset: 01-13-2005 01-13-2005 Episodic Unclassified (3 sources) Chronic cough R05.3 Unclassified (2 sources) Chronic fatigue disorder G93.32 Unclassified (1 source) History of COVID-19 Z86.16 Viral infection (8 sources) Disease caused by 2019-nCoV; Translations: [COVID-19] Results Test Name Value Interpretation Reference Range Facility XR hand LT min 3V*on 024 XR hand LT min 3V* [facility] Main [address] [address] XRay Report Signed Patient: Jeannette Hurtado MR#: [id number] : 1965 Acct:[id number] Age/Sex: 58 / F ADM Date: 02/20/24 Loc: XD Room: Type: [facility] Attending Dr: Klaudia Gomez MD Copies to: Klaudia Goemz MD Ordering Provider: Klaudia Gomez MD Date of Service: 02/20/24 XR/XR hand LT min 3V*: M79.645 - Pain in left finger(s) XR hand LT min 3V* 02/20/2024 5:24 PM SIGNS AND SYMPTOMS: Injury to left thumb with pain across the metacarpophalangeal joints PROTOCOL: Frontal, lateral, and oblique radial graphs of the left hand COMPARISON: None FINDINGS: There is mild narrowing of the first carpal metacarpal junction. There is no evidence of acute displaced fracture. No dislocation or subluxation. No significant soft tissue swelling. XR/XR hand LT min 3V* IMPRESSION: No fracture or dislocation. Impression dictated by: Hayden Valdez M.D.02/20/2024 10:14 PM Dictation Location: [place] [address] Transcribed By: [facility] 02/20/242213 Dictated By: Hayden Valdez II, MD 02/20/242211 Signed By: 02/20/242213 Normal [facility] XR wrist LT min 3V*on 2023 XR wrist LT min 3V* [facility] Main [address] [address] XRay Report Signed Patient: Jeannette Hurtado MR#: [id number] : 1965 Acct:[id number] Age/Sex: 58 / F ADM Date: 02/20/24 Loc: XD Room: Type: [facility] Attending Dr: Klaudia Gomez MD Copies to: Klaudia Gomez MD Ordering Provider: Klaudia Gomez MD Date of Service: 02/20/24 XR/XR wrist LT min 3V*: M79.645 - Pain in left finger(s) XR wrist LT min 3V* 02/20/2024 5:24 PM SIGNS AND SYMPTOMS: Injury to left thumb with pain across the metacarpophalangeal joints PROTOCOL: Frontal, lateral, and oblique radiographs of the left wrist COMPARISON: None FINDINGS: The radiocarpal joint and carpal rows are preserved. There is mild narrowing of the first carpal metacarpal junction. There is no evidence of fracture or dislocation. No significant soft tissue swelling. XR/XR wrist LT min 3V* IMPRESSION: No acute bony injury. Impression dictated by: Hayden Valdez M.D.02/20/2024 10:16 PM Dictation Location: [place] [address] Transcribed By: [facility] 02/20/242215 Dictated By: Hayden Valdez II, MD 02/20/242213 Signed By: 02/20/242215 Normal [facility] CNNURSEon 02-15-2024 CNNURSE Nurse Visit (HEMASA) JEANNETTE HURTADO ([id number]) 1965 F Date Time Provider Department 02/15/24 2:30 PM MERVIN NURSE EDMUND CARRERO During your visit today, we recorded the following information about you: Temperature Pulse Respiration Blood pressure 97.2 degrees 75/minute 16/minute 137/83 Mariela Sarmiento MA 02/15/2024 2:49 PM Signed Patient Identification confirmed: yes. Injection given and documented on JUL per provider order. Mariela Sarmiento MA Referring Provider: JOSE ROSE [[id number]] Allergies As of Date: 02/15/2024 Noted Allergy Reaction COMPAZINE (PROCHLORPERAZINE EDISY*01/13/2005 LATEX 01/21/2023 16 - Unknown Date Reviewed: 10/31/2023 Reviewed by: Toña Castro MA - Fully Assessed Primary Visit Diagnosis:Iron deficiency anemia secondary to inadequate dietary iron intake [D50.8] Order(s):[] cyanocobalamin 1,000 mcg injectionDisp: Rfl: Prescriptions as of 02/15/2024 - folic acid 1 mg tablet Take 1 tablet by mouth once daily. - celecoxib (CELEBREX) 200 mg capsule - aspirin, enteric coated (ASPIRIN, ENTERIC COATED) 81 mg EC tablet Take 81 mg by mouth. - atorvastatin (LIPITOR) 40 mg tablet Atorvastatin Active 40 MG PO Daily July 08, 2023 12:00am - lisinopril (ZESTRIL) 5 mg tablet Take 5 mg by mouth once daily. - nitroglycerin sublingual (NITROQUICK) 0.4 mg SL tablet Dissolve 0.4 mg under the tongue at bedtime as needed. - ticagrelor (BRILINTA) 90 mg tablet Take 90 mg by mouth two times a day. - B-complex with vitamin C (VITAMIN B COMPLEX-C ORAL) Take by mouth. - ascorbic acid (VITAMIN C ORAL) Take by mouth. - sertraline (ZOLOFT) 25 mg tablet Take 25 mg by mouth once daily. - esomeprazole (NEXIUM) 20 mg capsule Take 20 mg by mouth once daily. - metFORMIN (GLUCOPHAGE) 1,000 mg tablet Take 1,000 mg by mouth twice daily with meals. - albuterol HFA (PROVENTIL HFA) inhaler Inhale 2 Puffs as instructed every 6 hours as needed for wheezing/shortness of breath. Meds Comments as of 07/11/2023: Patient unsure of medications, asked her to bring a list with her next visit. Mariela Sarmiento MA Problem List As Of Date 02/15/2024 Noted Resolved HIDRADENITIS [L73.2] 01/13/2005 Iron deficiency anemia secondary to inadequate *02/07/2023 Visit Notes: >> Mariela Sarmiento MA Wed Feb 15, 2024 2:49 PM Status: Signed Patient Identification confirmed: yes. Injection given and documented on JUL per provider order. Mariela Sarmiento MA Prescriptions ordered this encounter Disp Refills Start End CYANOCOBALAMIN (VIT B-12) 1,000 MCG/* 02/15/2024 02/15/2024 Route: INTRAMUSCULA Encounter Status:Closed by MARIELA SARMIENTO on 02/15/24 [facility] Nurse Visit (HEMASA) JEANNETTE HURTADO ([id number]) 1965 F Date Time Provider Department 01/18/24 2:30 PM MERVIN NURSE EDMUND CARRERO During your visit today, we recorded the following information about you: Temperature Pulse Respiration Blood pressure 97.8 degrees 77/minute 16/minute 134/76 Katina Howe MA 01/18/2024 3:22 PM Signed Patient Identification confirmed: yes. Injection given and documented on JUL per provider order. Katina Howe MA Referring Provider: JOSE ROSE [[id number]] Allergies As of Date: 01/18/2024 Noted Allergy Reaction COMPAZINE (PROCHLORPERAZINE EDISY*01/13/2005 LATEX 01/21/2023 16 - Unknown Date Reviewed: 10/31/2023 Reviewed by: Toña Castro MA - Fully Assessed Primary Visit Diagnosis:Iron deficiency anemia secondary to inadequate dietary iron intake [D50.8] Order(s):[] cyanocobalamin 1,000 mcg injectionDisp: Rfl: Prescriptions as of 01/18/2024 - folic acid 1 mg tablet Take 1 tablet by mouth once daily. - celecoxib (CELEBREX) 200 mg capsule - aspirin, enteric coated (ASPIRIN, ENTERIC COATED) 81 mg EC tablet Take 81 mg by mouth. - atorvastatin (LIPITOR) 40 mg tablet Atorvastatin Active 40 MG PO Daily July 08, 2023 12:00am - lisinopril (ZESTRIL) 5 mg tablet Take 5 mg by mouth once daily. - nitroglycerin sublingual (NITROQUICK) 0.4 mg SL tablet Dissolve 0.4 mg under the tongue at bedtime as needed. - ticagrelor (BRILINTA) 90 mg tablet Take 90 mg by mouth two times a day. - B-complex with vitamin C (VITAMIN B COMPLEX-C ORAL) Take by mouth. - ascorbic acid (VITAMIN C ORAL) Take by mouth. - sertraline (ZOLOFT) 25 mg tablet Take 25 mg by mouth once daily. - esomeprazole (NEXIUM) 20 mg capsule Take 20 mg by mouth once daily. - metFORMIN (GLUCOPHAGE) 1,000 mg tablet Take 1,000 mg by mouth twice daily with meals. - albuterol HFA (PROVENTIL HFA) inhaler Inhale 2 Puffs as instructed every 6 hours as needed for wheezing/shortness of breath. Meds Comments as of 07/11/2023: Patient unsure of medications, asked her to bring a list with her next visit. Mariela Sarmiento MA Problem List As Of Date 01/18/2024 Noted Resolved HIDRADENITIS [L73.2] 01/13/2005 Iron deficiency anemia secondary to inadequate *02/07/2023 Visit Notes: >> Katina Howe MA TueJan 18, 2024 3:22 PM Status: Signed Patient Identification confirmed: yes. Injection given and documented on JUL per provider order. Katina Howe MA Prescriptions ordered this encounter Disp Refills Start End CYANOCOBALAMIN (VIT B-12) 1,000 MCG/* 01/18/2024 01/18/2024 Route: INTRAMUSCULA Encounter Status:Closed by KATINA HOWE on 01/18/24 Normal [facility] Absolute reticulocyte counto n 12-21-2023 Reticulocytes (Bld) [#/Vol] 0.64918 10*3/uL 0.018-0.10 0 [facility] Basophils Auto (Bld) [#/Vol] on 12-21-2023 Basophils (Bld) [#/Vol] 0.04 10*3/uL <0.11 [facility] Basophils/100 WBC Auto (Bld) on 12-21-2023 Basophils/100 WBC (Bld) 0.5 % [facility] Blood manual differential co mment interpretation narrativeon 12-21-2023 Manual differential comment Alec (Bld) [Interp] Auto [facility] CBC W Auto Differential pane l (Bld)on 12-21-2023 Basophils (Bld) [#/Vol] 0.04 10*3/uL Normal <0.11 [facility] Comment on above: Order Comment: Speci men Type: BLOOD SPECIMENOrdering Facility: [facility] Address: [address] [place] [address] Performed By: #### 1 4196-0, 97958-9 ####[facility] LABCLIA [id number] [place] [address] Basophils/100 WBC (Bld) 0.5 % Normal [facility] Comment on above: Order Comment: Speci men Type: BLOOD SPECIMENOrdering Facility: [facility] Address: [address] [place] [address] Performed By: #### 1 4196-0, 08492-4 ####[facility] LABCLIA [id number] [place] [address] Differential cell count method Nom (Bld) Auto Normal [facility] Comment on above: Order Comment: Speci men Type: BLOOD SPECIMENOrdering Facility: [facility] Address: [address] [place] [address] Performed By: #### 1 4196-0, 65632-1 ####[facility] LABCLIA [id number] [place] [address] Eosinophils (Bld) [#/Vol] 0.18 10*3/uL Normal <0.46 [facility] Comment on above: Order Comment: Speci men Type: BLOOD SPECIMENOrdering Facility: [facility] Address: [address] [place] [address] Performed By: #### 1 4196-0, 31226-2 ####[facility] LABCLIA [id number] [place] [address] Eosinophils/100 WBC (Bld) 2.2 % Normal [facility] Comment on above: Order Comment: Speci men Type: BLOOD SPECIMENOrdering Facility: [facility] Address: [address] [place] [address] Performed By: #### 1 4196-0, 10830-2 ####[facility] LABCLIA [id number] [place] [address] Erythrocyte distribution width (RBC) [Ratio] 12.5 % Normal 11.5-15.0 [facility] Comment on above: Order Comment: Speci men Type: BLOOD SPECIMENOrdering Facility: [facility] Address: [address] [place] [address] Performed By: #### 1 4196-0, 63442-6 ####[facility] LABIA [id number] [place] [address] Hematocrit (Bld) [Volume fraction] 36.3 % Normal 36.0-46.0 [facility] Comment on above: Order Comment: Speci men Type: BLOOD SPECIMENOrdering Facility: [facility] Address: [address] [place] [address] Performed By: #### 1 4196-0, 23843-3 ####[facility] LABCLIA [id number] [place] [address] Hemoglobin (Bld) [Mass/Vol] 11.8 g/dL Normal 11.5-15.5 [facility] Comment on above: Order Comment: Speci men Type: BLOOD SPECIMENOrdering Facility: [facility] Address: [address] [place] [address] Performed By: #### 1 4196-0, 62790-5 ####[facility] LABCLIA [id number] [place] [address] Immature granulocytes (Bld) [#/Vol] 0.03 10*3/uL Normal <0.10 [facility] Comment on above: Order Comment: Speci men Type: BLOOD SPECIMENOrdering Facility: [facility] Address: [address] [place] [address] Performed By: #### 1 4196-0, 28125-2 ####[facility] LABCLIA [id number] [place] [address] Immature granulocytes/100 WBC (Bld) 0.4 % Normal [facility] Comment on above: Order Comment: Speci men Type: BLOOD SPECIMENOrdering Facility: [facility] Address: [address] [place] [address] Performed By: #### 1 4196-0, 95905-8 ####[facility] LABCLIA [id number] [place] [address] Lymphocytes (Bld) [#/Vol] 2.48 10*3/uL Normal 1.00-4.00 [facility] Comment on above: Order Comment: Speci men Type: BLOOD SPECIMENOrdering Facility: [facility] Address: [address] [place] [address] Performed By: #### 1 4196-0, 67541-5 ####[facility] LABCLIA [id number] [place] [address] Lymphocytes/100 WBC (Bld) 30.5 % Normal [facility] Comment on above: Order Comment: Speci men Type: BLOOD SPECIMENOrdering Facility: [facility] Address: [address] [place] [address] Performed By: #### 1 4196-0, 34029-7 ####[facility] LABCLIA [id number] [place] [address] MCH (RBC) [Entitic mass] 30.8 pg Normal 26.0-34.0 [facility] Comment on above: Order Comment: Speci men Type: BLOOD SPECIMENOrdering Facility: [facility] Address: [address] [place] [address] Performed By: #### 1 4196-0, 30750-2 ####[facility] LABCLIA [id number] [place] [address] MCHC (RBC) [Mass/Vol] 32.5 g/dL Normal 30.5-36.0 [facility] Comment on above: Order Comment: Speci men Type: BLOOD SPECIMENOrdering Facility: [facility] Address: [address] [place] [address] Performed By: #### 1 4196-0, 76255-5 ####[facility] LABCLIA [id number] [place] [address] MCV (RBC) [Entitic vol] 94.8 fL Normal 80.0-100.0 [facility] Comment on above: Order Comment: Speci men Type: BLOOD SPECIMENOrdering Facility: [facility] Address: [address] [place] [address] Performed By: #### 1 4196-0, 11346-0 ####[facility] LABIA [id number] [place] [address] Monocytes (Bld) [#/Vol] 0.69 10*3/uL Normal <0.87 [facility] Comment on above: Order Comment: Speci men Type: BLOOD SPECIMENOrdering Facility: [facility] Address: [address] [place] [address] Performed By: #### 1 4196-0, ####[facility] LABCLIA [id number] [place] [address] Monocytes/100 WBC (Bld) 8.5 % Normal [facility] Comment on above: Order Comment: Speci men Type: BLOOD SPECIMENOrdering Facility: [facility] Address: [address] [place] [address] Performed By: #### 1 4196-0, 67936-3 ####[facility] LABCLIA [id number] [place] [address] Neutrophils (Bld) [#/Vol] 4.71 10*3/uL Normal 1.45-7.50 [facility] Comment on above: Order Comment: Speci men Type: BLOOD SPECIMENOrdering Facility: [facility] Address: [address] [place] [address] Performed By: #### 1 4196-0, 69384-8 ####[facility] LABCLIA [id number] [place] [address] Neutrophils/100 WBC (Bld) 57.9 % Normal [facility] Comment on above: Order Comment: Speci men Type: BLOOD SPECIMENOrdering Facility: [facility] Address: [address] [place] [address] Performed By: #### 1 4196-0, 41516-7 ####[facility] LABIA [id number] [place] [address] Nucleated RBC (Bld) [#/Vol] 10*3/uL Normal <0.01 [facility] Comment on above: Order Comment: Speci men Type: BLOOD SPECIMENOrdering Facility: [facility] Address: [address] [place] [address] Performed By: #### 1 4196-0, 86179-8 ####[facility] LABIA [id number] [place] [address] Nucleated RBC/100 WBC (Bld) [Ratio] 0.0 /100 WBC Normal [facility] Comment on above: Order Comment: Speci men Type: BLOOD SPECIMENOrdering Facility: [facility] Address: [address] [place] [address] Performed By: #### 1 4196-0, 40340-2 ####[facility] LABIA [id number] [place] [address] Platelet mean volume (Bld) [Entitic vol] 9.8 fL Normal 9.0-12.7 [facility] Comment on above: Order Comment: Speci men Type: BLOOD SPECIMENOrdering Facility: [facility] Address: [address] [place] [address] Performed By: #### 1 4196-0, 65398-8 ####[facility] LABIA [id number] [place] [address] Platelets (Bld) [#/Vol] 200 10*3/uL Normal 150-400 [facility] Comment on above: Order Comment: Speci men Type: BLOOD SPECIMENOrdering Facility: [facility] Address: [address] [place] [address] Performed By: #### 1 4196-0, 14857-4 ####[facility] [id number] [place] [address] RBC (Bld) [#/Vol] 3.83 10*6/uL Low 3.90-5.20 [facility] Comment on above: Order Comment: Speci men Type: BLOOD SPECIMENOrdering Facility: [facility] Address: [address] [place] [address] Performed By: #### 1 4196-0, 53430-5 ####[facility] [id number] [place] [address] WBC (Bld) [#/Vol] 8.13 10*3/uL Normal 3.70-11.00 [facility] Comment on above: Order Comment: Speci men Type: BLOOD SPECIMENOrdering Facility: [facility] Address: [address] [place] [address] Performed By: #### 1 4196-0, 38128-8 ####[facility] LABIA [id number] [place] [address] [facility] CNN[facility] Nurse Visit (HEMASA) JEANNETTE HURTADO ([id number]) 1965 F Date Time Provider Department 12/21/23 3:00 PM MERVIN NURSE EDMUND CARRERO During your visit today, we recorded the following information about you: Dangelo Umanzor MA 12/21/2023 3:06 PM Signed Patient Identification confirmed: yes. Injection given and documented on JUL per provider order. Dangelo Umanzor MA Referring Provider: JOSE ROSE [[id number]] Allergies As of Date: 12/21/2023 Noted Allergy Reaction COMPAZINE (PROCHLORPERAZINE EDISY*01/13/2005 LATEX 01/21/2023 16 - Unknown Date Reviewed: 10/31/2023 Reviewed by: Toña Castro MA - Fully Assessed Primary Visit Diagnosis:Iron deficiency anemia secondary to inadequate dietary iron intake [D50.8] Order(s):[] cyanocobalamin 1,000 mcg injectionDisp: Rfl: Prescriptions as of 12/21/2023 - folic acid 1 mg tablet Take 1 tablet by mouth once daily. - celecoxib (CELEBREX) 200 mg capsule - aspirin, enteric coated (ASPIRIN, ENTERIC COATED) 81 mg EC tablet Take 81 mg by mouth. - atorvastatin (LIPITOR) 40 mg tablet Atorvastatin Active 40 MG PO Daily July 08, 2023 12:00am - lisinopril (ZESTRIL) 5 mg tablet Take 5 mg by mouth once daily. - nitroglycerin sublingual (NITROQUICK) 0.4 mg SL tablet Dissolve 0.4 mg under the tongue at bedtime as needed. - ticagrelor (BRILINTA) 90 mg tablet Take 90 mg by mouth two times a day. - B-complex with vitamin C (VITAMIN B COMPLEX-C ORAL) Take by mouth. - ascorbic acid (VITAMIN C ORAL) Take by mouth. - sertraline (ZOLOFT) 25 mg tablet Take 25 mg by mouth once daily. - esomeprazole (NEXIUM) 20 mg capsule Take 20 mg by mouth once daily. - metFORMIN (GLUCOPHAGE) 1,000 mg tablet Take 1,000 mg by mouth twice daily with meals. - albuterol HFA (PROVENTIL HFA) inhaler Inhale 2 Puffs as instructed every 6 hours as needed for wheezing/shortness of breath. Meds Comments as of 07/11/2023: Patient unsure of medications, asked her to bring a list with her next visit. Mariela Sarmiento MA Problem List As Of Date 12/21/2023 Noted Resolved HIDRADENITIS [L73.2] 01/13/2005 Iron deficiency anemia secondary to inadequate *02/07/2023 Visit Notes: >> Dangelo Umanzor MA TueDec 21, 2023 3:06 PM Status: Signed Patient Identification confirmed: yes. Injection given and documented on JUL per provider order. Dangelo Umanzor MA Prescriptions ordered this encounter Disp Refills Start End CYANOCOBALAMIN (VIT B-12) 1,000 MCG/* 12/21/2023 12/21/2023 Route: INTRAMUSCULA Encounter Status:Closed by DANGELO UMANZOR on 12/21/23 [facility] CNOVSPon 12-21-2023 CNOVSP Visit (SP) Office ([facility]) JEANNETTE HURTADO ([id number]) 1965 F Date Time Provider Department 12/21/23 2:30 PM JOSE ROSE During your visit today, we recorded the following information about you: Temperature Pulse Respiration Blood pressure 97.2 degrees 58/minute 16/minute 171/79 Weight Height 89.8 kg 1.676 m Jose Rose MD 12/24/2023 12:21 PM Signed NAME: Jeannette Hurtado CLINIC NO.: [id number] DATE OF SERVICE: December 21, 2023 (José) Some elements in this clinic note that are critical to medical decision making have been carefully reviewed and included from a prior clinic note dated: October 03, 2023 (José) Referring Provider: Dr. Klaudia Gomez Additional Clinicians involved in Jeannette Hurtado's care: DIAGNOSIS: Anemia, fatigue ASSESSMENT: 58 year old woman with anemia and associated fatigue. She has obstructive sleep apnea but is compliant with CPAP. We advised her to have a cardiac workup done because the degree of anemia did not match the degree of fatigue. She ended up failing a stress test and now has two coronary stents. Fatigue has improved overall with B12 and folate replacement. Mild decrease in Hgb but symptoms have improved so we will observe. PLAN: B12 today and q 4 weeks Continue folic acid RTC in 12 weeks Labs same day - HPI: CASE HISTORY: Reverse Chronological Order 01/05/2023 - CBC 9.2 > 11.2 / 35.6 < 277 11/12/2022 - Colonoscopy is negative. Recommended colonoscopy 10 years. Updated Visit, December 21, 2023: Doing better overall. B12 and folic acid have made a big difference. Cardiology with stents also helped and she still uses her CPAP. Updated Visit, October 03, 2023: Adalgisa returns today for a follow up. She had stents placed after cardiology workup, although she is still fatigued. I recommended trying B12 injections and folic acid supplements. She remains compliant with her CPAP. Hgb: 12.9 on 09/28. She can also consider a women's health evaluation for hormone replacement / balancing that is offered by [facility]. Updated Visit, July 11, 2023: Jeannette Hurtado returns for scheduled follow-up. Since her last visit there has been no significant medical changes. She offers no new complaints today. No new issues, problems or concerns. She denies bleeding and abnormal bruising. Updated Visit, April 04, 2023: 02/14/2023 Patient called in stating that after taking the oral iron for 1 week she was having nausea, vomiting x1 and diarrhea. Patient stopped medication. Her next appointment was for labs only to see how the oral was working, followed by a virtual visit. Would you like her switched to a regular visit to discuss IV iron? Mechelle Gomez RN Jeannettemarc Hurtado returns for scheduled follow-up. She received IV Venofer 300 mg on 02/21/2023, 02/28/2023 and 03/07/2023. She tolerated the IV iron infusions well. She states that her fatigue is only slightly improved. The brain fog is not much better. She remains off of oral iron. She denies any bleeding or abnormal bruising. Updated Visit, February 07, 2023: Iron deficiency identified.will trial oral iron and see if it helpd otherwise iv iron. Very fatigued. Reviewed all laboratories with her. Would consider IV iron therapy. Initial Visit, January 26, 2023: Jeannette Hurtado presents today Hematology and Oncology evaluation. She is a 57 year old female who presents on consultation for anemia. Hemoglobin in August 2022 was 11 but she presents with progressive fatigue even though she is compliant with CPAP. While anemia is mild and seem to have progressed and worsened. I reviewed outside laboratories but I do not have access to iron studies or ferritin. - REVIEW OF SYSTEMS Per HPI and otherwise negative by full review of organ systems. - ECOG PERFORMANCE STATUS: 1 PHYSICAL EXAMINATION: Vitals: BP 171/79 Pulse 58 Temp (Src) 97.2 (Temporal) Resp 16 Ht 5' 5.984 (1.68m) Wt 197 lb 15.6 oz (89.8kg) SpO2 98% BMI 31.97 kg/(m2). Body surface area is 2.04 meters squared. Exam limited to gross visualization where appropriate. Gen.: This is an age-appropriate patient in no acute distress. Head: Appears atraumatic with no visible lesions. Eyes: Pupils equally round and reactive to light, extraocular muscles are intact. Neck: Supple. Respiratory: Appears to be respiring comfortably. Neurologic: Nonfocal to gross visualization. Alert and oriented ?3. Psychiatric: No evidence of inappropriate anxiety or depression. Skin: Visible areas of skin without rash, lesions, wounds or petechia (more content not included)... Normal [facility] Comprehensive metabolic 2000 panelon 12-21-2023 Albumin [Mass/Vol] 4.3 g/dL Normal 3.9-4.9 [facility] Comment on above: Order Comment: Joselyn forrest Type: BLOOD SPECIMENOrdering Facility: [facility] Address: [address] [place] [address] Performed By: #### 2 4323-8 ####[facility] LABCLIA [id number] [place] [address] [place] ALP [Catalytic activity/Vol] 105 U/L Normal 34-123 [facility] Comment on above: Order Comment: Joselyn forrest Type: BLOOD SPECIMENOrdering Facility: [facility] Address: [address] [place] [address] Performed By: #### 2 4323-8 ####[facility] LABCLIA [id number] [place] [address] [place] ALT [Catalytic activity/Vol] 30 U/L Normal 7-38 [facility] Comment on above: Order Comment: Bibianai lon Type: BLOOD SPECIMENOrdering Facility: [facility] Address: [address] [place] [address] Performed By: #### 2 4323-8 ####[facility] LABCLIA [id number] [place] [address] [place] Anion gap [Moles/Vol] 14 mmol/L Normal 8-15 [facility] Comment on above: Order Comment: Speci men Type: BLOOD SPECIMENOrdering Facility: [facility] Address: [address] [place] [address] Performed By: #### 2 4323-8 ####[facility] LABCLIA [id number] [place] [id number] [place] AST [Catalytic activity/Vol] 33 U/L Normal 13-35 [facility] Comment on above: Order Comment: Speci men Type: BLOOD SPECIMENOrdering Facility: [facility] Address: [address] [place] [address] Performed By: #### 2 4323-8 ####[facility] LABCLIA [id number] [place] [address] [place] Bilirubin [Mass/Vol] 0.3 mg/dL Normal 0.2-1.3 [facility] Comment on above: Order Comment: Speci men Type: BLOOD SPECIMENOrdering Facility: [facility] Address: [address] [place] [address] Performed By: #### 2 4323-8 ####[facility] LABCLIA [id number] [place] [address] [place] Calcium [Mass/Vol] 9.5 mg/dL Normal 8.5-10.2 [facility] Comment on above: Order Comment: Speci men Type: BLOOD SPECIMENOrdering Facility: [facility] Address: [address] [place] [address] Performed By: #### 2 4323-8 ####[facility] LABCLIA [id number] [place] [id number] [place] Chloride [Moles/Vol] 100 mmol/L Normal 98-107 [facility] Comment on above: Order Comment: Speci men Type: BLOOD SPECIMENOrdering Facility: [facility] Address: [address] [place] [place], [place] [id number] Performed By: #### 2 4323-8 ####[facility] LABCLIA [id number] [place] [address] [place] CO2 [Moles/Vol] 24 mmol/L Normal 22-30 [facility] Comment on above: Order Comment: Speci men Type: BLOOD SPECIMENOrdering Facility: [facility] Address: [address] [place] [address] Performed By: #### 2 4323-8 ####[facility] LABIA [id number] [place] [address] [place] Creatinine [Mass/Vol] 0.86 mg/dL Normal 0.58-0.96 [facility] Comment on above: Order Comment: Speci men Type: BLOOD SPECIMENOrdering Facility: [facility] Address: [address] [place] [address] Performed By: #### 2 4323-8 ####[facility] [id number] [place] [address] [place] Creatinine and Glomerular filtration rate.predicted panel (S/P/Bld) 77 mL/min/1.73m??? Normal >=60 [facility] Comment on above: Order Comment: Speci men Type: BLOOD SPECIMENOrdering Facility: [facility] Address: [address] [place] [address] Result Comment: Michaela mated Glomerular Filtration Rate (eGFR) is calculated using the 2020 CKD-EPI creatinine equation. This equation utilizes serum creatinine, sex, and age as parameters. The creatinine assay has traceable calibration to isotope dilution-mass spectrometry. Refer to KDIGO guidelines for clinical interpretation. In patients with unstable renal function, e.g. those with acute kidney injury, the eGFR may not accurately reflect actual GFR. Performed By: #### 2 4323-8 ####[facility] [id number] [place] [address] [place] Glucose [Mass/Vol] 115 mg/dL High 74-99 [facility] Comment on above: Order Comment: Speci men Type: BLOOD SPECIMENOrdering Facility: [facility] Address: [address] [id number] Result Comment: The [place] Diabetes Association (ADA) provides guidance for cutoff values for fasting glucose and random glucose. The ADA defines fasting as no caloric intake for at least 8 hours. Fasting plasma glucose results between 100 to 125 mg/dL indicate increased risk for diabetes (prediabetes). Fasting plasma glucose results greater than or equal to 126 mg/dL meet the criteria for diagnosis of diabetes. In the absence of unequivocal hyperglycemia, results should be confirmed by repeat testing. In a patient with classic symptoms of hyperglycemia or hyperglycemic crisis, random plasma glucose results greater than or equal to 200 mg/dL meet the criteria for diagnosis of diabetes. Reference: Standards of Medical Care in Diabetes 2016, [place] Diabetes Association. Diabetes Care. 2016.39(Suppl 1). Performed By: #### 2 4323-8 ####[facility] LABIA [id number] [place] [address] [place] Potassium [Moles/Vol] 4.5 mmol/L Normal 3.7-5.1 [facility] Comment on above: Order Comment: Speci men Type: BLOOD SPECIMENOrdering Facility: [facility] Address: [address] [place] [address] Performed By: #### 2 4323-8 ####[facility] LABIA [id number] [place] [address] [place] Protein [Mass/Vol] 6.6 g/dL Normal 6.3-8.0 [facility] Comment on above: Order Comment: Speci men Type: BLOOD SPECIMENOrdering Facility: [facility] Address: [address] [place] [address] Performed By: #### 2 4323-8 ####[facility] LABIA [id number] [place] [address] [place] Sodium [Moles/Vol] 138 mmol/L Normal 136-144 [facility] Comment on above: Order Comment: Speci men Type: BLOOD SPECIMENOrdering Facility: [facility] Address: [address] [place] [address] Performed By: #### 2 4323-8 ####[facility] LABCLIA [id number] [place] [address] [place] Urea nitrogen [Mass/Vol] 15 mg/dL Normal 7-21 [facility] Comment on above: Order Comment: Speci men Type: BLOOD SPECIMENOrdering Facility: [facility] Address: [address] [place] [address] Performed By: #### 2 4323-8 ####[facility] LABCLIA [id number] [place] [address] [place] Eosinophils/100 WBC Auto (Bl d)on 12-21-2023 Eosinophils/100 WBC (Bld) 2.2 % [facility] Erythrocyte distribution wid th Auto (RBC) [Ratio]on 12-21-2023 Erythrocyte distribution width (RBC) [Ratio] 12.5 % 11.5-15.0 [facility] Ferritin SerPl-mCncon 2023 Ferritin [Mass/Vol] 113.0 ng/mL Normal 14.7-205.1 [facility] Comment on above: Order Comment: Speci men Type: BLOOD SPECIMENOrdering Facility: [facility] Address: [address] [place] [address] Performed By: #### 2 284-8, 50302-8, 2132-9, 2276-4 ####[facility] LABIA [id number] [place] [address] [place] Folate SerPl-mCncon 12-21-19 24 Folate [Mass/Vol] ng/mL Normal >4.7 [facility] Comment on above: Order Comment: Speci men Type: BLOOD SPECIMENOrdering Facility: [facility] Address: [address] [place] [address] Result Comment: A re sult of > 20 ng/mL is not necessarily indicative of a pathologic or treatable condition: it reflects a limitation of the test methodology. Assay reference range: 4.8 to 24.2 ng/mL. Suitable for detection of folate deficiency. Reference: Folate III (Folate III) [package insert V 1.0 [place]]. [facility], [place], [place]: March 2015. Performed By: #### 2 284-8, 12018-0, 2-9, 6-4 ####[facility] LABCLIA [id number] [place] [id number] [place] Hematocrit Auto (Bld) [Volum e fraction]on 12-21-2023 Hematocrit (Bld) [Volume fraction] 36.3 % 36.0-46.0 [facility] Hemoglobin [Mass/volume] in Bloodon 12-21-2023 Hemoglobin (Bld) [Mass/Vol] 11.8 g/dL 11.5-15.5 [facility] Iron and Iron binding capaci ty panelon 12-21-2023 Iron [Mass/Vol] 44 ug/dL Normal 41-186 [facility] Comment on above: Order Comment: Speci men Type: BLOOD SPECIMENOrdering Facility: [facility] Address: [address] [place] [address] Performed By: #### 2 284-8, 06234-2, 2131-9, 2275-4 ####[facility] LABIA [id number] [address] [place] Iron binding capacity [Mass/Vol] 349 ug/dL Normal 232-386 [facility] Comment on above: Order Comment: Speci men Type: BLOOD SPECIMENOrdering Facility: [facility] Address: [address] [place] [address] Performed By: #### 2 284-8, 48635-4, 2131-9, 2275-4 ####[facility] LABCLIA [id number] [place] [id number] [place] Iron/TIBC [Molar ratio] 12.6 % Low 15.0-57.0 [facility] Comment on above: Order Comment: Speci men Type: BLOOD SPECIMENOrdering Facility: [facility] Address: [address] [place] [address] Performed By: #### 2 284-8, 11945-4, 2132-9, 2276-4 ####[facility] LABCLIA [id number] [facility] [id number] [id number] [place] Iron binding capacity [Mass/ volume] in Serum or Plasmaon 12-21-2023 Iron binding capacity [Mass/Vol] 349 ug/dL 232-386 [facility] Iron saturation [Mass Fracti on] in Serum or Plasmaon 12-21-2023 Iron saturation [Mass fraction] 12.6 % Low 15.0-57.0 [facility] Laboratory - Chemistry and C hemistry - challengeon 12-21-2023 Albumin [Mass/Vol] 4.3 g/dL 3.9-4.9 [facility] ALP [Catalytic activity/Vol] 105 U/L 34-123 [facility] ALT [Catalytic activity/Vol] 30 U/L 7-38 [facility] AST [Catalytic activity/Vol] 33 U/L 13-35 [facility] Bilirubin [Mass/Vol] 0.3 mg/dL 0.2-1.3 [facility] Calcium [Mass/Vol] 9.5 mg/dL 8.5-10.2 [facility] Chloride [Moles/Vol] 100 mmol/L 98-107 [facility] CO2 [Moles/Vol] 24 mmol/L 22-30 [facility] Cobalamin (Vitamin B12) [Mass/Vol] 514 pg/mL 232-1245 [facility] Creatinine [Mass/Vol] 0.86 mg/dL 0.58-0.96 [facility] Ferritin [Mass/Vol] 113.0 ng/mL 14.7-205.1 [facility] Glucose [Mass/Vol] 115 mg/dL High 74-99 [facility] Comment on above: The [place] Diabete s Association (ADA) provides guidance for cutoff values for fasting glucose and random glucose. The ADA defines fasting as no caloric intake for at least 8 hours. Fasting plasma glucose results between 100 to 125 mg/dL indicate increased risk for diabetes (prediabetes).Fasting plasma glucose results greater than or equal to 126 mg/dL meet the criteria for diagnosis of diabetes. In the absence of unequivocal hyperglycemia, results should be confirmed by repeat testing. In a patient with classic symptoms of hyperglycemia or hyperglycemic crisis, random plasma glucose results greater than or equal to 200 mg/dL meet the criteria for diagnosis of diabetes.Reference: Standards of Medical Care in Diabetes 2016, [place] [employer] Association. Diabetes Care. 2016.39(Suppl 1). Iron [Mass/Vol] 44 ug/dL 41-186 [facility] Potassium [Moles/Vol] 4.5 mmol/L 3.7-5.1 [facility] Sodium [Moles/Vol] 138 mmol/L 136-144 [facility] Urea nitrogen [Mass/Vol] 15 mg/dL 7- [facility] Laboratory - Hematology and Cell countson 12-21-2023 Eosinophils (Bld) [#/Vol] 0.18 10*3/uL <0.46 [facility] Immature granulocytes (Bld) [#/Vol] 0.03 10*3/uL <0.10 [facility] Immature granulocytes/100 WBC (Bld) 0.4 % [facility] Leukocytes [#/volume] correc ifrah for nucleated erythrocytes in Blood by Automated counon 12-21-2023 WBC corrected for nucl RBC Auto (Bld) [#/Vol] 8.13 k/uL 3.70-11.00 [facility] Lymphocytes Auto (Bld) [#/Vo l]on 12-21-2023 Lymphocytes (Bld) [#/Vol] 2.48 10*3/uL 1.00-4.00 [facility] Lymphocytes/100 WBC Auto (Bl d)on 12-21-2023 Lymphocytes/100 WBC (Bld) 30.5 % [facility] MCH Auto (RBC) [Entitic mass ]on 12-21-2023 MCH (RBC) [Entitic mass] 30.8 pg 26.0-34.0 [facility] MCHC Auto (RBC) [Mass/Vol]on 12-21-2023 MCHC (RBC) [Mass/Vol] 32.5 g/dL 30.5-36.0 [facility] MCV Auto (RBC) [Entitic vol] on 12-21-2023 MCV (RBC) [Entitic vol] 94.8 fL 80.0-100.0 [facility] Monocytes Auto (Bld) [#/Vol] on 12-21-2023 Monocytes (Bld) [#/Vol] 0.69 10*3/uL <0.87 [facility] Monocytes/100 WBC Auto (Bld) on 12-21-2023 Monocytes/100 WBC (Bld) 8.5 % [facility] Neutrophils Auto (Bld) [#/Vo l]on 12-21-2023 Neutrophils (Bld) [#/Vol] 4.71 10*3/uL 1.45-7.50 [facility] Neutrophils/100 WBC Auto (Bl d)on 12-21-2023 Neutrophils/100 WBC (Bld) 57.9 % [facility] No Panel Informationon 12-20 Estimated GFR (CKD-EPI) 77 mL/min/1.73m??? >=60 [facility] Comment on above: Estimated Glomerular Filtration Rate (eGFR) is calculated using the 2020 CKD-EPI creatinine equation. This equation utilizes serum creatinine, sex, and age as parameters. The creatinine assay has traceable calibration to isotope dilution-mass spectrometry. Refer to KDIGO guidelines for clinical interpretation. In patients with unstable renal function, e.g. those with acute kidney injury, the eGFR may not accurately reflect actual GFR. Folate >20.0 ng/mL >4.7 [facility] Comment on above: A result of > 20 ng/ mL is not necessarily indicative of a pathologic or treatable condition: it reflects a limitation of the test methodology.Assay reference range: 4.8 to 24.2 ng/mL. Suitable for detection of folate deficiency.Reference:Folate III (Folate III) [package insert V 1.0 [place] [facility], [place], [place]: March 2015. Nucleated RBC Auto (Bld) [#/ Vol]on 12-21-2023 Nucleated RBC (Bld) [#/Vol] 10*3/uL <0.01 [facility] Nucleated erythrocytes [Pres ence] in Blood by Automated counton 12-21-2023 Nucleated RBC Auto Ql (Bld) 0.0 /100{WBC} [facility] Platelet mean volume Auto (B ld) [Entitic vol]on 12-21-2023 Platelet mean volume (Bld) [Entitic vol] 9.8 fL 9.0-12.7 [facility] Platelets Auto (Bld) [#/Vol] on 12-21-2023 Platelets (Bld) [#/Vol] 200 10*3/uL 150-400 [facility] Protein [Mass/volume] in Ser um or Plasmaon 12-21-2023 Protein [Mass/Vol] 6.6 g/dL 6.3-8.0 [facility] RBC Auto (Bld) [#/Vol]on RBC (Bld) [#/Vol] 3.83 10*6/uL Low 3.90-5.20 [facility] #on 12-21-2023 Reticulocytes (Bld) [#/Vol] 0.46006 10*3/uL Normal 0.018-0.10 0 [facility] Comment on above: Order Comment: Speci men Type: BLOOD SPECIMENOrdering Facility: [facility] Address: [address] [place] [address] Performed By: #### 1 4196-0, 42568-5 ####[facility] LABIA [id number] [place] [address] Reticulocytes (Bld) [#/Vol]o n 12-21-2023 Reticulocytes/100 RBC (Bld) 1.2 % Normal 0.4-2.0 [facility] Comment on above: Order Comment: Speci men Type: BLOOD SPECIMENOrdering Facility: [facility] Address: [address] [place] [address] Performed By: #### 1 4196-0, 92072-6 ####[facility] LABIA [id number] [place] [address] Reticulocytes/100 RBC Auto ( Bld)on 12-21-2023 Reticulocytes/100 RBC (Bld) 1.2 % 0.4-2.0 [facility] Serum or plasma anion gap de terminationon 12-21-2023 Anion gap [Moles/Vol] 14 mmol/L 8- [facility] Vit [facility] Cobalamin (Vitamin B12) [Mass/Vol] 514 pg/mL Normal 232-1245 [facility] Comment on above: Order Comment: Speci men Type: BLOOD SPECIMENOrdering Facility: [facility] Address: [address] [place] [address] Performed By: #### 2 284-8, 52173-0, 2132-9, 2276-4 ####[facility] LABCLIA [id number] [facility] [id number] [place] [address] CNNURSEon 11-28-2023 CNNURSE Nurse Visit (HEMASA) JEANNETTE HURTADO ([id number]) 1965 F Date Time Provider Department 11/28/23 2:00 PM [facility] NURSE EDMUND CARRERO During your visit today, we recorded the following information about you: Temperature Pulse Respiration Blood pressure 97.5 degrees 84/minute 16/minute 151/83 Mariela Sarmiento MA 11/28/2023 2:18 PM Signed Patient Identification confirmed: yes. Injection given and documented on JUL per provider order. Mariela Sarmiento MA Referring Provider: SELF [200] Allergies As of Date: 11/28/2023 Noted Allergy Reaction COMPAZINE (PROCHLORPERAZINE EDISY*01/13/2005 LATEX 01/21/2023 16 - Unknown Date Reviewed: 10/31/2023 Reviewed by: Toña Castro MA - Fully Assessed Primary Visit Diagnosis:Iron deficiency anemia secondary to inadequate dietary iron intake [D50.8] Order(s):[] cyanocobalamin 1,000 mcg injectionDisp: Rfl: Prescriptions as of 11/28/2023 - celecoxib (CELEBREX) 200 mg capsule - aspirin, enteric coated (ASPIRIN, ENTERIC COATED) 81 mg EC tablet Take 81 mg by mouth. - atorvastatin (LIPITOR) 40 mg tablet Atorvastatin Active 40 MG PO Daily July 08, 2023 12:00am - lisinopril (ZESTRIL) 5 mg tablet Take 5 mg by mouth once daily. - nitroglycerin sublingual (NITROQUICK) 0.4 mg SL tablet Dissolve 0.4 mg under the tongue at bedtime as needed. - ticagrelor (BRILINTA) 90 mg tablet Take 90 mg by mouth two times a day. - folic acid 1 mg tablet Take 1 tablet by mouth once daily. - B-complex with vitamin C (VITAMIN B COMPLEX-C ORAL) Take by mouth. - ascorbic acid (VITAMIN C ORAL) Take by mouth. - sertraline (ZOLOFT) 25 mg tablet Take 25 mg by mouth once daily. - esomeprazole (NEXIUM) 20 mg capsule Take 20 mg by mouth once daily. - metFORMIN (GLUCOPHAGE) 1,000 mg tablet Take 1,000 mg by mouth twice daily with meals. - albuterol HFA (PROVENTIL HFA) inhaler Inhale 2 Puffs as instructed every 6 hours as needed for wheezing/shortness of breath. Meds Comments as of 07/11/2023: Patient unsure of medications, asked her to bring a list with her next visit. Mariela Sarmiento MA Problem List As Of Date 11/28/2023 Noted Resolved HIDRADENITIS [L73.2] 01/13/2005 Iron deficiency anemia secondary to inadequate *02/07/2023 Visit Notes: >> Mariela Sarmiento MA Mon Nov 28, 2023 2:16 PM Status: Signed Patient Identification confirmed: yes. Injection given and documented on JUL per provider order. Mariela Sarmiento MA Prescriptions ordered this encounter Disp Refills Start End CYANOCOBALAMIN (VIT B-12) 1,000 MCG/* 11/28/2023 11/28/2023 Route: INTRAMUSCULA Encounter Status:Closed by MARIELA SARMIENTO on 11/28/23 Normal [facility] CNNURSEon 10-31-2023 CNNURSE Nurse Visit (HEMASA) JEANNETTE HURTADO ([id number]) 1965 F Date Time Provider Department 10/31/23 1:30 PM [facility] NURSE EDMUND CARRERO During your visit today, we recorded the following information about you: Temperature Pulse Respiration Blood pressure 97.9 degrees 61/minute 16/minute 125/74 Referring Provider: SELF [200] Allergies As of Date: 10/31/2023 Noted Allergy Reaction COMPAZINE (PROCHLORPERAZINE EDISY*01/13/2005 LATEX 01/21/2023 16 - Unknown Date Reviewed: 10/31/2023 Reviewed by: Toña Castro MA - Fully Assessed Primary Visit Diagnosis:Iron deficiency anemia secondary to inadequate dietary iron intake [D50.8] Order(s):[] cyanocobalamin 1,000 mcg injectionDisp: Rfl: Prescriptions as of 11/21/2023 - celecoxib (CELEBREX) 200 mg capsule - aspirin, enteric coated (ASPIRIN, ENTERIC COATED) 81 mg EC tablet Take 81 mg by mouth. - atorvastatin (LIPITOR) 40 mg tablet Atorvastatin Active 40 MG PO Daily July 08, 2023 12:00am - lisinopril (ZESTRIL) 5 mg tablet Take 5 mg by mouth once daily. - nitroglycerin sublingual (NITROQUICK) 0.4 mg SL tablet Dissolve 0.4 mg under the tongue at bedtime as needed. - ticagrelor (BRILINTA) 90 mg tablet Take 90 mg by mouth two times a day. - folic acid 1 mg tablet Take 1 tablet by mouth once daily. - B-complex with vitamin C (VITAMIN B COMPLEX-C ORAL) Take by mouth. - ascorbic acid (VITAMIN C ORAL) Take by mouth. - sertraline (ZOLOFT) 25 mg tablet Take 25 mg by mouth once daily. - esomeprazole (NEXIUM) 20 mg capsule Take 20 mg by mouth once daily. - metFORMIN (GLUCOPHAGE) 1,000 mg tablet Take 1,000 mg by mouth twice daily with meals. - albuterol HFA (PROVENTIL HFA) inhaler Inhale 2 Puffs as instructed every 6 hours as needed for wheezing/shortness of breath. Meds Comments as of 07/11/2023: Patient unsure of medications, asked her to bring a list with her next visit. Mariela Sarmiento MA Problem List As Of Date 10/31/2023 Noted Resolved HIDRADENITIS [L73.2] 01/13/2005 Iron deficiency anemia secondary to inadequate *02/07/2023 Prescriptions ordered this encounter Disp Refills Start End CYANOCOBALAMIN (VIT B-12) 1,000 MCG/* 10/31/2023 10/31/2023 Route: INTRAMUSCULA Encounter Status:Closed by TOÑA CASTRO on 10/31/23 [facility] CNNURSEon 10-03-2023 [facility] Nurse Visit (HEMASA) JEANNETTE HURTADO ([id number]) 1965 F Date Time Provider Department 10/03/23 1:45 PM [facility] NURSE EDMUND CARRERO During your visit today, we recorded the following information about you: Katina Howe MA 10/03/2023 2:03 PM Signed Patient Identification confirmed: yes. Injection given and documented on JUL per provider order. Katina Howe MA Referring Provider: SELF [200] Allergies As of Date: 10/03/2023 Noted Allergy Reaction COMPAZINE (PROCHLORPERAZINE EDISY*01/13/2005 LATEX 01/21/2023 16 - Unknown Date Reviewed: 10/03/2023 Reviewed by: Mariela Sarmiento MA - Fully Assessed Primary Visit Diagnosis:Iron deficiency anemia secondary to inadequate dietary iron intake [D50.8] Order(s):TREATMENT PARAMETER-NOT NEEDED [[id number]] Order #: [id number]: 1 BCN NURSING COMMUNICATION [[id number]] Order #: [id number]: 1 STANDING [] cyanocobalamin 1,000 mcg injectionDisp: Rfl: Prescriptions as of 10/03/2023 - celecoxib (CELEBREX) 200 mg capsule - aspirin, enteric coated (ASPIRIN, ENTERIC COATED) 81 mg EC tablet Take 81 mg by mouth. - atorvastatin (LIPITOR) 40 mg tablet Atorvastatin Active 40 MG PO Daily July 08, 2023 12:00am - lisinopril (ZESTRIL) 5 mg tablet Take 5 mg by mouth once daily. - nitroglycerin sublingual (NITROQUICK) 0.4 mg SL tablet Dissolve 0.4 mg under the tongue at bedtime as needed. - ticagrelor (BRILINTA) 90 mg tablet Take 90 mg by mouth two times a day. - folic acid 1 mg tablet Take 1 tablet by mouth once daily. - B-complex with vitamin C (VITAMIN B COMPLEX-C ORAL) Take by mouth. - ascorbic acid (VITAMIN C ORAL) Take by mouth. - sertraline (ZOLOFT) 25 mg tablet Take 25 mg by mouth once daily. - esomeprazole (NEXIUM) 20 mg capsule Take 20 mg by mouth once daily. - metFORMIN (GLUCOPHAGE) 1,000 mg tablet Take 1,000 mg by mouth twice daily with meals. - albuterol HFA (PROVENTIL HFA) inhaler Inhale 2 Puffs as instructed every 6 hours as needed for wheezing/shortness of breath. Meds Comments as of 07/11/2023: Patient unsure of medications, asked her to bring a list with her next visit. Mariela Sarmiento MA Problem List As Of Date 10/03/2023 Noted Resolved HIDRADENITIS [L73.2] 01/13/2005 Iron deficiency anemia secondary to inadequate *02/07/2023 Visit Notes: >> Katina Howe MA TueOctober 03, 2023 2:03 PM Status: Signed Patient Identification confirmed: yes. Injection given and documented on JUL per provider order. Katina Howe MA Prescriptions ordered this encounter Disp Refills Start End CYANOCOBALAMIN (VIT B-12) 1,000 MCG/* 10/03/2023 10/03/2023 Route: INTRAMUSCULA Encounter Status:Closed by KATINA HOWE on 10/03/23 Normal [facility] CNOVSPon 10-03-2023 CNOVSP Visit (SP) Office (Nguyen MILLER) JEANNETTE HURTADO ([id number]) 1965 F Date Time Provider Department 10/03/23 1:15 PM JOSE ROSE During your visit today, we recorded the following information about you: Temperature Pulse Respiration Blood pressure 97.8 degrees 76/minute 16/minute 136/82 Weight Height 89.1 kg 1.676 m Jose Rose MD 10/03/2023 6:23 PM Signed NAME: Jeannette Hurtado CLINIC NO.: [id number] DATE OF SERVICE: October 03, 2023 (José) Some elements in this clinic note that are critical to medical decision making have been carefully reviewed and included from a prior clinic note dated: July 11, 2022 ([place]) Referring Provider: Dr. Klaudia Gomez Additional Clinicians involved in Jeannette Hurtado's care: DIAGNOSIS: Anemia, fatigue ASSESSMENT: 57 year old woman with anemia and associated fatigue. She has obstructive sleep apnea but is compliant with CPAP. We advised her to have a cardiac workup done because the degree of anemia did not match the degree of fatigue. She ended up failing a stress test and now has two coronary stents. Unfortunately she is still fatigued. PLAN: B12 today and q 4 weeks Rx sent for folic acid RTC in 12 weeks Labs same day - HPI: CASE HISTORY: Reverse Chronological Order 01/05/2023 - CBC 9.2 > 11.2/35.6 < 277 11/12/2022 - Colonoscopy is negative. Recommended colonoscopy 10 years. Updated Visit, October 03, 2023: Adalgisa returns today for a follow up. She had stents placed after cardiology workup, although she is still fatigued. I recommended trying B12 injections and folic acid supplements. She remains compliant with her CPAP. Hgb: 12.9 on 09/28. She can also consider a women's health evaluation for hormone replacement / balancing that is offered by [facility]. Updated Visit, July 11, 2023: Jeannettemarc Hurtado returns for scheduled follow-up. Since her last visit there has been no significant medical changes. She offers no new complaints today. No new issues, problems or concerns. She denies bleeding and abnormal bruising. Updated Visit, April 04, 2023: 02/14/2023 Patient called in stating that after taking the oral iron for 1 week she was having nausea, vomiting x1 and diarrhea. Patient stopped medication. Her next appointment was for labs only to see how the oral was working, followed by a virtual visit. Would you like her switched to a regular visit to discuss IV iron? Mechelle Gomez RN Jeannette Hurtado returns for scheduled follow-up. She received IV Venofer 300 mg on 02/21/2023, 02/28/2023 and 03/07/2023. She tolerated the IV iron infusions well. She states that her fatigue is only slightly improved. The brain fog is not much better. She remains off of oral iron. She denies any bleeding or abnormal bruising. Updated Visit, February 07, 2023: Iron deficiency identified.will trial oral iron and see if it helpd otherwise iv iron. Very fatigued. Reviewed all laboratories with her. Would consider IV iron therapy. Initial Visit, January 26, 2023: Jeannette Hurtado presents today Hematology and Oncology evaluation. She is a 57 year old female who presents on consultation for anemia. Hemoglobin in August 2022 was 11 but she presents with progressive fatigue even though she is compliant with CPAP. While anemia is mild and seem to have progressed and worsened. I reviewed outside laboratories but I do not have access to iron studies or ferritin. - REVIEW OF SYSTEMS Per HPI and otherwise negative by full review of organ systems. - ECOG PERFORMANCE STATUS: 1 PHYSICAL EXAMINATION: Vitals: BP 136/82 Pulse 76 Temp (Src) 97.8 (Temporal) Resp 16 Ht 5' 5.984 (1.68m) Wt 196 lb 6.9 oz (89.1kg) SpO2 98% BMI 31.72 kg/(m2). Body surface area is 2.04 meters squared. Exam limited to gross visualization where appropriate. Gen.: This is an age-appropriate patient in no acute distress. Head: Appears atraumatic with no visible lesions. Eyes: Pupils equally round and reactive to light, extraocular muscles are intact. Neck: Supple. Respiratory: Appears to be respiring comfortably. Neurologic: Nonfocal to gross visualization. Alert and oriented ?3. Psychiatric: No evidence of inappropriate anxiety or depression. Skin: Visible areas of skin without rash, lesions, wounds or petechiae. - ALLERGIES: ALLERGIES Allergen Reactions Compazine [Prochlor* Latex Unknown MEDICATIONS: celecoxib (CELEBREX) 200 mg capsule aspirin, enteric coated (A (more content not included)... Normal [facility] CBC W Auto Differential pane l (Bld)on 09-29-2023 Basophils (Bld) [#/Vol] 0.06 10*3/uL Normal <0.11 [facility] Comment on above: Order Comment: Speci men Type: BLOOD SPECIMENOrdering Facility: [facility] Address: [address] [place] [address] Performed By: #### 5 7021-8, 01072-3 ####[facility] LABCLIA [id number] [place] [address] Basophils/100 WBC (Bld) 0.6 % Normal [facility] Comment on above: Order Comment: Speci men Type: BLOOD SPECIMENOrdering Facility: [facility] Address: [address] [place] [address] Performed By: #### 5 7021-8, 69811-4 ####[facility]CL[facility] [id number] [place] [address] Differential cell count method Nom (Bld) Auto Normal [facility] Comment on above: Order Comment: Speci men Type: BLOOD SPECIMENOrdering Facility: [facility] Address: [address] [place] [address] Performed By: #### 5 7021-8, 94742-1 ####[facility]CL[facility] [id number] [place] [address] Eosinophils (Bld) [#/Vol] 0.22 10*3/uL Normal <0.46 [facility] Comment on above: Order Comment: Speci men Type: BLOOD SPECIMENOrdering Facility: [facility] Address: [address] [place] [address] Performed By: #### 5 7021-8, 00322-5 ####[facility]CL[facility] [id number] [place] [address] Eosinophils/100 WBC (Bld) 2.2 % Normal [facility] Comment on above: Order Comment: Speci men Type: BLOOD SPECIMENOrdering Facility: [facility] Address: [address] [place] [address] Performed By: #### 5 7021-8, 91790-4 ####[facility]CL[facility] [id number] [place] [address] Erythrocyte distribution width (RBC) [Ratio] 13.2 % Normal 11.5-15.0 [facility] Comment on above: Order Comment: Speci men Type: BLOOD SPECIMENOrdering Facility: [facility] Address: [address] [place] [address] Performed By: #### 5 7021-8, 23477-9 ####[facility]CLIA [id number] [place] [address] Hematocrit (Bld) [Volume fraction] 38.5 % Normal 36.0-46.0 [facility] Comment on above: Order Comment: Speci men Type: BLOOD SPECIMENOrdering Facility: [facility] Address: [address] [place] [address] Performed By: #### 5 7021-8, 40558-2 ####[facility]CL[facility] [id number] [place] [address] Hemoglobin (Bld) [Mass/Vol] 12.9 g/dL Normal 11.5-15.5 [facility] Comment on above: Order Comment: Speci men Type: BLOOD SPECIMENOrdering Facility: [facility] Address: [address] [place] [address] Performed By: #### 5 7021-8, 02525-3 ####[facility]CL[facility] [id number] [place] [address] Immature granulocytes (Bld) [#/Vol] 0.03 10*3/uL Normal <0.10 [facility] Comment on above: Order Comment: Speci men Type: BLOOD SPECIMENOrdering Facility: [facility] Address: [address] [place] [address] Performed By: #### 5 7021-8, 37822-8 ####[facility] [id number] [place] [address] Immature granulocytes/100 WBC (Bld) 0.3 % Normal [facility] Comment on above: Order Comment: Speci men Type: BLOOD SPECIMENOrdering Facility: [facility] Address: [address] [place] [address] Performed By: #### 5 7021-8, 84714-3 ####[facility]CL[facility] [id number] [place] [address] Lymphocytes (Bld) [#/Vol] 2.48 10*3/uL Normal 1.00-4.00 [facility] Comment on above: Order Comment: Speci men Type: BLOOD SPECIMENOrdering Facility: [facility] Address: [address] [place] [address] Performed By: #### 5 7021-8, 54677-6 ####[facility]CL[facility] [id number] [place] [address] Lymphocytes/100 WBC (Bld) 24.8 % Normal [facility] Comment on above: Order Comment: Speci men Type: BLOOD SPECIMENOrdering Facility: [facility] Address: [address] [place] [address] Performed By: #### 5 7021-8, 65983-4 ####[facility]CL[facility] [id number] [place] [address] MCH (RBC) [Entitic mass] 31.4 pg Normal 26.0-34.0 [facility] Comment on above: Order Comment: Speci men Type: BLOOD SPECIMENOrdering Facility: [facility] Address: [address] [place] [address] Performed By: #### 5 7021-8, 03273-2 ####[facility]CL[facility] [id number] [place] [address] MCHC (RBC) [Mass/Vol] 33.5 g/dL Normal 30.5-36.0 [facility] Comment on above: Order Comment: Speci men Type: BLOOD SPECIMENOrdering Facility: [facility] Address: [address] [place] [address] Performed By: #### 5 7021-8, 31272-1 ####[facility] LABIA [id number] [place] [address] MCV (RBC) [Entitic vol] 93.7 fL Normal 80.0-100.0 [facility] Comment on above: Order Comment: Speci men Type: BLOOD SPECIMENOrdering Facility: [facility] Address: [address] [place], [place] [address] Performed By: #### 5 7021-8, 35043-8 ####[facility] [id number] [place] [address] Monocytes (Bld) [#/Vol] 0.66 10*3/uL Normal <0.87 [facility] Comment on above: Order Comment: Speci men Type: BLOOD SPECIMENOrdering Facility: [facility] Address: [address] [place] [address] Performed By: #### 5 7021-8, 06146-3 ####[facility] LABIA [id number] [place] [address] Monocytes/100 WBC (Bld) 6.6 % Normal [facility] Comment on above: Order Comment: Speci men Type: BLOOD SPECIMENOrdering Facility: [facility] Address: [address] [place], [place] [address] Performed By: #### 5 7021-8, 41664-1 ####[facility]CL[facility] [id number] [place] [address] Neutrophils (Bld) [#/Vol] 6.55 10*3/uL Normal 1.45-7.50 [facility] Comment on above: Order Comment: Speci men Type: BLOOD SPECIMENOrdering Facility: [facility] Address: [address] [place], [place] [address] Performed By: #### 5 7021-8, 37008-5 ####[facility] LABCLIA [id number] [place] [address] Neutrophils/100 WBC (Bld) 65.5 % Normal [facility] Comment on above: Order Comment: Speci men Type: BLOOD SPECIMENOrdering Facility: [facility] Address: [address] [place] [address] Performed By: #### 5 7021-8, 00518-7 ####[facility]CL[facility] [id number] [place] [address] Nucleated RBC (Bld) [#/Vol] 10*3/uL Normal <0.01 [facility] Comment on above: Order Comment: Speci men Type: BLOOD SPECIMENOrdering Facility: [facility] Address: [address] [place] [address] Performed By: #### 5 7021-8, 13987-4 ####[facility]CLIA [id number] [place] [address] Nucleated RBC/100 WBC (Bld) [Ratio] 0.0 /100 WBC Normal [facility] Comment on above: Order Comment: Speci men Type: BLOOD SPECIMENOrdering Facility: [facility] Address: [address] [place] [address] Performed By: #### 5 7021-8, 73518-7 ####[facility] LABCL[facility] [id number] [place] [address] Platelet mean volume (Bld) [Entitic vol] 9.8 fL Normal 9.0-12.7 [facility] Comment on above: Order Comment: Speci men Type: BLOOD SPECIMENOrdering Facility: [facility] Address: [address] [place] [address] Performed By: #### 5 7021-8, 81235-6 ####[facility] [id number] [place] [address] Platelets (Bld) [#/Vol] 250 10*3/uL Normal 150-400 [facility] Comment on above: Order Comment: Speci men Type: BLOOD SPECIMENOrdering Facility: [facility] Address: [address] [place] [address] Performed By: #### 5 7021-8, 32133-4 ####[facility]CL[facility] [id number] [place] [address] RBC (Bld) [#/Vol] 4.11 10*6/uL Normal 3.90-5.20 [facility] Comment on above: Order Comment: Speci men Type: BLOOD SPECIMENOrdering Facility: [facility] Address: [address] [place] [address] Performed By: #### 5 7021-8, 69827-8 ####[facility]CL[facility] [id number] [place] [address] WBC (Bld) [#/Vol] 10.00 10*3/uL Normal 3.70-11.00 [facility] Comment on above: Order Comment: Speci men Type: BLOOD SPECIMENOrdering Facility: [facility] Address: [address] [place] [address] Performed By: #### 5 7021-8, 09836-6 ####[facility]CL[facility] [id number] [place] [address] Comprehensive metabolic 2000 panelon 09-29-2023 Albumin [Mass/Vol] 4.7 g/dL Normal 3.9-4.9 [facility] Comment on above: Order Comment: Speci men Type: BLOOD SPECIMENOrdering Facility: [facility] Address: [address] [place] [address] Performed By: #### 2 4323-8 ####[facility]CL[facility] [id number] [place] [address] ALP [Catalytic activity/Vol] 115 U/L Normal 34-123 [facility] Comment on above: Order Comment: Speci men Type: BLOOD SPECIMENOrdering Facility: [facility] Address: [address] [place] [address] Performed By: #### 2 4323-8 ####[facility]CL[facility] [id number] [place] [address] ALT [Catalytic activity/Vol] 36 U/L Normal 7-38 [facility] Comment on above: Order Comment: Speci men Type: BLOOD SPECIMENOrdering Facility: [facility] Address: [address] [place] [address] Performed By: #### 2 4323-8 ####[facility]CL[facility] [id number] [place] [address] Anion gap [Moles/Vol] 11 mmol/L Normal 9-18 [facility] Comment on above: Order Comment: Speci men Type: BLOOD SPECIMENOrdering Facility: [facility] Address: [address] [place] [address] Performed By: #### 2 4323-8 ####[facility]CL[facility] [id number] [place] [address] AST [Catalytic activity/Vol] 43 U/L High 13-35 [facility] Comment on above: Order Comment: Speci men Type: BLOOD SPECIMENOrdering Facility: [facility] Address: [address] [place], [place] [address] Performed By: #### 2 4323-8 ####[facility]CLIA [id number] [place] [address] Bilirubin [Mass/Vol] 0.4 mg/dL Normal 0.2-1.3 [facility] Comment on above: Order Comment: Speci men Type: BLOOD SPECIMENOrdering Facility: [facility] Address: [address] [place] [address] Performed By: #### 2 4323-8 ####[facility]CL[facility] [id number] [place] [address] Calcium [Mass/Vol] 10.3 mg/dL High 8.5-10.2 [facility] Comment on above: Order Comment: Speci men Type: BLOOD SPECIMENOrdering Facility: [facility] Address: [address] [place] [address] Performed By: #### 2 4323-8 ####[facility]CL[facility] [id number] [place] [address] Chloride [Moles/Vol] 103 mmol/L Normal 97-105 [facility] Comment on above: Order Comment: Speci men Type: BLOOD SPECIMENOrdering Facility: [facility] Address: [address] [place] [address] Performed By: #### 2 4323-8 ####[facility]CL[facility] [id number] [place] [address] CO2 [Moles/Vol] 27 mmol/L Normal 22-30 [facility] Comment on above: Order Comment: Speci men Type: BLOOD SPECIMENOrdering Facility: [facility] Address: [address] [place] [address] Performed By: #### 2 4323-8 ####[facility]CL[facility] [id number] [place] [address] Creatinine [Mass/Vol] 0.92 mg/dL Normal 0.58-0.96 [facility] Comment on above: Order Comment: Speci men Type: BLOOD SPECIMENOrdering Facility: [facility] Address: [address] [place] [address] Performed By: #### 2 4323-8 ####[facility]CLIA [id number] [place] [address] Creatinine and Glomerular filtration rate.predicted panel (S/P/Bld) 72 mL/min/1.73m??? Normal >=60 [facility] Comment on above: Order Comment: Speci men Type: BLOOD SPECIMENOrdering Facility: [facility] Address: [address] [place] [address] Result Comment: Michaela mated Glomerular Filtration Rate (eGFR) is calculated using the 2020 CKD-EPI creatinine equation. This equation utilizes serum creatinine, sex, and age as parameters. The creatinine assay has traceable calibration to isotope dilution-mass spectrometry. Refer to KDIGO guidelines for clinical interpretation. In patients with unstable renal function, e.g. those with acute kidney injury, the eGFR may not accurately reflect actual GFR. Performed By: #### 2 4323-8 ####[facility]CL[facility] [id number] [place] [address] Glucose [Mass/Vol] 148 mg/dL High 74-99 [facility] Comment on above: Order Comment: Speci lon Type: BLOOD SPECIMENOrdering Facility: [facility] Address: [address] [place] [address] Result Comment: The [place] [employer] Association (ADA) provides guidance for cutoff values for fasting glucose and random glucose. The ADA defines fasting as no caloric intake for at least 8 hours. Fasting plasma glucose results between 100 to 125 mg/dL indicate increased risk for diabetes (prediabetes). Fasting plasma glucose results greater than or equal to 126 mg/dL meet the criteria for diagnosis of diabetes. In the absence of unequivocal hyperglycemia, results should be confirmed by repeat testing. In a patient with classic symptoms of hyperglycemia or hyperglycemic crisis, random plasma glucose results greater than or equal to 200 mg/dL meet the criteria for diagnosis of diabetes. Reference: Standards of Medical Care in Diabetes 2016, [place] [employer]. Diabetes Care. 2016.39(Suppl 1). Performed By: #### 2 4323-8 ####[facility]CLIA [id number] [place] [address] Potassium [Moles/Vol] 4.7 mmol/L Normal 3.7-5.1 [facility] Comment on above: Order Comment: Specmatti forrest Type: BLOOD SPECIMENOrdering Facility: [facility] Address: [address] [place] [address] Performed By: #### 2 4323-8 ####[facility] LABCLIA [id number] [place] [address] Protein [Mass/Vol] 7.8 g/dL Normal 6.3-8.0 [facility] Comment on above: Order Comment: Speci men Type: BLOOD SPECIMENOrdering Facility: [facility] Address: [address] [place] [address] Performed By: #### 2 4323-8 ####[facility]CL[facility] [id number] [place] [address] Sodium [Moles/Vol] 141 mmol/L Normal 136-144 [facility] Comment on above: Order Comment: Speci men Type: BLOOD SPECIMENOrdering Facility: [facility] Address: [address] [place] [address] Performed By: #### 2 4323-8 ####[facility]CL[facility] [id number] [place] [address] Urea nitrogen [Mass/Vol] 13 mg/dL Normal 7-21 [facility] Comment on above: Order Comment: Speci men Type: BLOOD SPECIMENOrdering Facility: [facility] Address: [address] [place] [address] Performed By: #### 2 4323-8 ####[facility] LABCLIA [id number] [place] [address] Ferritin SerPl-mCncon 2023 Ferritin [Mass/Vol] 202.0 ng/mL Normal 14.7-205.1 [facility] Comment on above: Order Comment: Speci men Type: BLOOD SPECIMENOrdering Facility: [facility] Address: [address] [place] [address] Performed By: #### 5 0190-8, 2276-4, 2132-9, 2284-8 ####[facility] LABCLIA [id number] [place] [address] [place] Folate SerPl-mCncon 09-29-19 24 Folate [Mass/Vol] 11.9 ng/mL Normal >4.7 [facility] Comment on above: Order Comment: Speci men Type: BLOOD SPECIMENOrdering Facility: [facility] Address: [address] [place] [address] Performed By: #### 5 0190-8, 2275-4, 9, 2283-12 ####[facility] LABCLIA [id number] [place] [address] [place] Iron and Iron binding capaci ty panelon 09-29-2023 Iron [Mass/Vol] 51 ug/dL Normal 41-186 [facility] Comment on above: Order Comment: Speci men Type: BLOOD SPECIMENOrdering Facility: [facility] Address: [address] [place] [address] Performed By: #### 5 0190-8, 2275-4, 2132-01, 2283-12 ####[facility] LABIA [id number] [place] [address] [place] Iron binding capacity [Mass/Vol] 362 ug/dL Normal 232-386 [facility] Comment on above: Order Comment: Speci men Type: BLOOD SPECIMENOrdering Facility: [facility] Address: [address] [place] [address] Performed By: #### 5 0190-8, 2275-4, 2132-01, 2283-12 ####[facility] LABIA [id number] [place] [address] [place] Iron/TIBC [Molar ratio] 14.1 % Low 15.0-57.0 [facility] Comment on above: Order Comment: Speci men Type: BLOOD SPECIMENOrdering Facility: [facility] Address: [address] [place] [address] Performed By: #### 5 0190-8, 2275-4, 2132-01, 2283-12 ####[facility] LABCLIA [id number] [place] [address] [place] Retics #on 09-29-2023 Reticulocytes (Bld) [#/Vol] 0.05943 10*3/uL Normal 0.018-0.10 0 [facility] Comment on above: Order Comment: Speci men Type: BLOOD SPECIMENOrdering Facility: [facility] Address: [address] [place] [address] [place] [id number] Performed By: #### 5 7021-8, 78858-9 ####[facility] LABCLIA [id number] [place] [address] Reticulocytes (Bld) [#/Vol]o n 09-29-2023 Reticulocytes/100 RBC (Bld) 1.3 % Normal 0.4-2.0 [facility] Comment on above: Order Comment: Speci men Type: BLOOD SPECIMENOrdering Facility: [facility] Address: [address] [place], [place] [address]Kiran [place] [address] Performed By: #### 5 7021-8, 84427-3 ####[facility] LABCLIA [id number] [place] [address] Vit B12 [facility]24 Cobalamin (Vitamin B12) [Mass/Vol] 479 pg/mL Normal 232-1245 [facility] Comment on above: Order Comment: Speci men Type: BLOOD SPECIMENOrdering Facility: [facility] Address: [address] [place], [place] [address] Performed By: #### 5 0190-8, 2276-4, 2132-9, 2284-8 ####[facility] LABCLIA [id number] [facility] [id number] [id number] [place] BASIC METABOLIC PANLon 08-16 Anion gap [Moles/Vol] 6 mmol/L Normal 5-15 [facility] Comment on above: Performed By: #### C MIGUEL ÁNGEL HIGGINBOTHAM, 3040-3, 02880-0, LIVR #### [facility] ([id number]) [address] [facility] [place] [facility] [place] [address] Calcium [Mass/Vol] 8.8 mg/dL Normal 8.5-10.5 [facility] Comment on above: Performed By: #### C BCA, BMP, 3040-3, 26547-0, LIVR #### [facility] ([id number]) [address] [place] [address] Chloride [Moles/Vol] 104 mmol/L Normal 98-109 [facility] Comment on above: Performed By: #### C BCA, BMP, 3040-3, 35509-8, LIVR #### [facility] ([id number]) [address] [place] [address] CO2 [Moles/Vol] 21 mmol/L Low 22-32 [facility] Comment on above: Performed By: #### C BCA, BMP, 3040-3, 20186-9, LIVR #### [facility] ([id number]) [address] [place] [address] Creatinine [Mass/Vol] 0.76 mg/dL Normal 0.40-1.00 [facility] Comment on above: Result Comment: METH OD TRACEABLE TO IDMS STANDARD Performed By: #### C BCA, BMP, 3040-3, 88042-0, LIVR #### [facility] ([id number]) [address] [place] [address] eGFR (CKD-EPI) NON-RACE DEPENDENT >90 Normal >59 [facility] Comment on above: Result Comment: Reported eGFR is based on the CKD-EPI 2020 equation that does not use a race coefficient. Performed By: #### C BCA, BMP, 3040-3, 58293-1, LIVR #### [facility] ([id number]) [address] [place] [address] Glucose [Mass/Vol] 130 mg/dL High 65-99 [facility] Comment on above: Performed By: #### C BCA, BMP, 3040-3, 18870-8, LIVR #### [facility] ([id number]) [address] [place] [address] Potassium [Moles/Vol] 3.8 mmol/L Normal 3.5-5.0 [facility] Comment on above: Performed By: #### C BCA, BMP, 3040-3, 45270-8, LIVR #### [facility] ([id number]) [address] [place] [address] Sodium [Moles/Vol] 131 mmol/L Low 134-146 [facility] Comment on above: Performed By: #### C BCA, BMP, 3040-3, 19959-9, LIVR #### [facility] ([id number]) [address] [place] [address] Urea nitrogen [Mass/Vol] 13 mg/dL Normal 5-23 [facility] Comment on above: Performed By: #### C NEFTALY, BMP, 3040-3, 42320-5, LIVR #### [facility] ([id number]) [address] [place] [address] CBC AND AUTO DIFFon 08-17-19 24 ABSOLUTE BASOPHIL 0.0 X10E9/L Normal 0.0-0.2 [facility] Comment on above: Performed By: #### C BCA, BMP, 3040-3, 30507-6, LIVR #### [facility] ([id number]) [address] [place] [address] ABSOLUTE NEUTROPHIL 7.1 X10E9/L High 1.5-6.6 [facility] Comment on above: Performed By: #### C BCA, BMP, 3040-3, 96641-2, LIVR #### [facility] ([id number]) [address] [place] [address] Basophils/100 WBC (Bld) 0.5 % Normal [facility] Comment on above: Performed By: #### C BCA, BMP, 3040-3, 85103-9, LIVR #### [facility] ([id number]) [address] [place] [address] Eosinophils (Bld) [#/Vol] 0.1 10*3/uL Normal 0.0-0.4 [facility] Comment on above: Performed By: #### C NEFTALY, BMP, 3040-3, 18734-8, LIVR #### [facility] ([id number]) [address] [place] [address] 89100 Eosinophils/100 WBC (Bld) 1.2 % Normal [facility] Comment on above: Performed By: #### C NEFTALY, BMP, 3040-3, 19916-9, LIVR #### [facility] ([id number]) [address] [place] [address] 02064 Erythrocyte distribution width (RBC) [Ratio] 13.8 % Normal 11.5-15.0 [facility] Comment on above: Performed By: #### Rosa Elena [place], [facility], 3040-3, 68179-9, LIVR #### [facility] ([id number]) [address] [place] [address] 50290 Hematocrit (Bld) [Volume fraction] 38.5 % Normal 35-47 [facility] Comment on above: Performed By: #### Rosa Elena [place], BMP, 3040-3, 78918-1, LIVR #### [facility] ([id number]) [address] [place] [address] 34748 Hemoglobin (Bld) [Mass/Vol] 13.2 g/dL Normal 11.7-15.5 [facility] Comment on above: Performed By: #### C BCA, BMP, 3040-3, 48916-8, LIVR #### [facility] ([id number]) [address] [place] [address] 74010 Lymphocytes (Bld) [#/Vol] 1.0 10*3/uL Normal 1.0-3.5 [facility] Comment on above: Performed By: #### C NEFTALY, BMP, 3040-3, 79445-1, LIVR #### [facility] ([id number]) [address] [place] [address] 51509 Lymphocytes/100 WBC (Bld) 11.8 % Normal [facility] Comment on above: Performed By: #### C NEFTALY, BMP, 3040-3, 34110-9, LIVR #### [facility] ([id number]) [address] [place] [address] 03540 MCH (RBC) [Entitic mass] 31.0 pg Normal 27-34 [facility] Comment on above: Performed By: #### C NEFTALY, BMP, 0-3, 42088-4, LIVR #### [facility] ([id number]) [address] [place] [address] 76948 MCHC (RBC) [Mass/Vol] 34.2 g/dL Normal 32-36 [facility] Comment on above: Performed By: #### C NEFTALY, BMP, 0-3, 91883-3, LIVR #### [facility] ([id number]) [address] [place] [address] 75083 MCV (RBC) [Entitic vol] 91 fL Normal 80-100 [facility] Comment on above: Performed By: #### C BCA, BMP, 0-3, 53066-3, LIVR #### [facility] ([id number]) [address] [place] [address] 74641 Monocytes (Bld) [#/Vol] 0.5 10*3/uL Normal 0-0.9 [facility] Comment on above: Performed By: #### C BCA, BMP, 3040-3, 04071-4, LIVR #### [facility] ([id number]) [address] [place] [address] 61017 Monocytes/100 WBC (Bld) 6.2 % Normal [facility] Comment on above: Performed By: #### C BCA, BMP, 3040-3, 83796-9, LIVR #### [facility] ([id number]) [address] [place] [address] 97153 Neutrophils/100 WBC (Bld) 80.3 % Normal [facility] Comment on above: Performed By: #### Rosa Elena BCA, BMP, 3040-3, 72870-2, LIVR #### [facility] ([id number]) [address] [place] [address] 58751 Platelet mean volume (Bld) [Entitic vol] 7.6 fL Normal 7-12 [facility] Comment on above: Performed By: #### Rosa Elena BCA, BMP, 3040-3, 87332-0, LIVR #### [facility] ([id number]) [address] [place] [address] 63147 Platelets (Bld) [#/Vol] 236 10*3/uL Normal 150-450 [facility] Comment on above: Performed By: #### Rosa Elena BCA, BMP, 3040-3, 30056-5, LIVR #### [facility] ([id number]) [address] [place] [address] 56755 RBC COUNT 4.25 X10E12/L Normal 3.80-5.20 [facility] Comment on above: Performed By: #### C BCA, BMP, 3040-3, 55843-9, LIVR #### [facility] ([id number]) [address] [place] [address] 66338 WBC (Bld) [#/Vol] 8.9 10*3/uL Normal 4.0-11.0 [facility] Comment on above: Performed By: #### Rosa Elena BCA, BMP, 3040-3, 39767-9, LIVR #### [facility] ([id number]) [address] [place] [address] 95354 LIPASEon 08-17-2023 Lipase [Catalytic activity/Vol] 41 U/L High 17-40 [facility] Comment on above: Performed By: #### C BCA, BMP, 3040-3, 47410-2, LIVR #### [facility] ([id number]) [address] [place] [address] 75881 LIVER PANELon 08-17-2023 Albumin [Mass/Vol] 4.4 g/dL Normal 3.2-5.3 [facility] Comment on above: Performed By: #### C NEFTALY, BMP, 3040-3, 53517-8, LIVR #### [facility] ([id number]) [address] [place] [address] 91493 ALP [Catalytic activity/Vol] 96 U/L Normal 39-130 [facility] Comment on above: Performed By: #### C BCA, BMP, 3040-3, 02371-4, LIVR #### [facility] ([id number]) [address] [place] [address] 60042 ALT [Catalytic activity/Vol] 52 U/L High 0-31 [facility] Comment on above: Performed By: #### C BCA, BMP, 3040-3, 26309-0, LIVR #### [facility] ([id number]) [address] [place] [address] 83234 AST [Catalytic activity/Vol] 54 U/L High 0-41 [facility] Comment on above: Performed By: #### C BCA, BMP, 3040-3, 85214-6, LIVR #### [facility] ([id number]) [address] [place] [address] 81722 Bilirubin [Mass/Vol] 0.8 mg/dL Normal 0.3-1.2 [facility] Comment on above: Performed By: #### C BCA, BMP, 3040-3, 76284-4, LIVR #### [facility] ([id number]) [address] [place] [address] Bilirubin.direct [Mass/Vol] 0.1 mg/dL Normal 0.0-0.4 [facility] Comment on above: Performed By: #### C NEFTALY, MIGUEL ÁNGEL, 3040-3, 91200-6, LIVR #### [facility] ([id number]) [address] [place] [address] 42582 Protein [Mass/Vol] 7.9 g/dL Normal 6.0-8.0 [facility] Comment on above: Performed By: #### C NEFTALY, MIGUEL ÁNGEL, 3040-3, 19060-1, LIVR #### [facility] ([id number]) [address] [place] [address] 28052 Lactate (P brandon) [Moles/Vol]o n 08-17-2023 LACTATE W/REFLEX 1.5 mmol/L Normal 0.4-2.0 [facility] Comment on above: Result Comment: Result did not trigger repeat Lactate, re-order if needed. Performed By: #### C NEFTALY, MIGUEL ÁNGEL, 3040-3, 08938-8, LIVR #### [facility] ([id number]) [address] [place] [address] 25413 CNOVSPon 07-11-2023 CNOVSP Visit (SP) Office ([facility]) JEANNETTE HURTADO ([id number]) 1965 F Date Time Provider Department 07/11/23 1:00 PM RUBEN WIGGINS During your visit today, we recorded the following information about you: Temperature Pulse Respiration Blood pressure 97.2 degrees 84/minute 16/minute 150/77 Weight Height 92.6 kg 1.676 m Ruben Wiggins APRN.SOLUTION ANALYST 07/18/2023 12:17 PM Signed NAME: Jeannette Hurtado CLINIC NO.: [id number] DATE OF SERVICE: July 11, 2022 ([place]) Some elements in this clinic note that are critical to medical decision making have been carefully reviewed and included from a prior clinic note dated: April 04, 2023. ([place]) Referring Provider: Dr. Klaudia Gomez Additional Clinicians involved in Jeannette Hurtado's care: DIAGNOSIS: Anemia, fatigue ASSESSMENT: 57 year old woman with anemia and associated fatigue. She has obstructive sleep apnea but is compliant with CPAP. PLAN: Follow up in 3 months Labs before follow up.. Possible IV Venofer. - HPI: CASE HISTORY: Reverse Chronological Order 01/05/2023 CBC 9.2 > 11.2/35.6 < 277 11/12/2022 colonoscopy is negative. Recommended colonoscopy 10 years. Updated Visit, July 11, 2023: Jeannette Hurtado returns for scheduled follow-up. Since her last visit there has been no significant medical changes. She offers no new complaints today. No new issues, problems or concerns. She denies bleeding and abnormal bruising. Updated Visit, April 04, 2023: 02/14/2023 Patient called in stating that after taking the oral iron for 1 week she was having nausea, vomiting x1 and diarrhea. Patient stopped medication. Her next appointment was for labs only to see how the oral was working, followed by a virtual visit. Would you like her switched to a regular visit to discuss IV iron? Mechelle Gomez RN Jeannette Hurtado returns for scheduled follow-up. She received IV Venofer 300 mg on 02/21/2023, 02/28/2023 and 03/07/2023. She tolerated the IV iron infusions well. She states that her fatigue is only slightly improved. The brain fog is not much better. She remains off of oral iron. She denies any bleeding or abnormal bruising. Updated Visit, February 07, 2023: Iron deficiency identified.will trial oral iron and see if it helpd otherwise iv iron. Very fatigued. Reviewed all laboratories with her. Would consider IV iron therapy. Initial Visit, January 26, 2023: Jeannette Hurtado presents today Hematology and Oncology evaluation. She is a 57 year old female who presents on consultation for anemia. Hemoglobin in August 2022 was 11 but she presents with progressive fatigue even though she is compliant with CPAP. While anemia is mild and seem to have progressed and worsened. I reviewed outside laboratories but I do not have access to iron studies or ferritin. - REVIEW OF SYSTEMS Per HPI and otherwise negative by full review of organ systems. - ECOG PERFORMANCE STATUS: 1 PHYSICAL EXAMINATION: Vitals: BP 150/77 Pulse 84 Temp (Src) 97.2 (Temporal) Resp 16 Ht 5' 5.984 (1.68m) Wt 204 lb 2.3 oz (92.6kg) SpO2 99% BMI 32.97 kg/(m2). Body surface area is 2.08 meters squared. Exam limited to gross visualization where appropriate. Gen.: This is an age-appropriate patient in no acute distress. Head: Appears atraumatic with no visible lesions. Eyes: Pupils equally round and reactive to light, extraocular muscles are intact. Neck: Supple. Respiratory: Appears to be respiring comfortably. Neurologic: Nonfocal to gross visualization. Alert and oriented ?3. Psychiatric: No evidence of inappropriate anxiety or depression. Skin: Visible areas of skin without rash, lesions, wounds or petechiae. - ALLERGIES: ALLERGIES Allergen Reactions Compazine [Prochlor* Latex Unknown MEDICATIONS: B-complex with vitamin C (VITAMIN B COMPLEX-C ORAL) Take by mouth. ascorbic acid (VITAMIN C ORAL) Take by mouth. sertraline (ZOLOFT) 25 mg tablet Take 25 mg by mouth once daily. esomeprazole (NEXIUM) 20 mg capsule Take 20 mg by mouth once daily. metFORMIN (GLUCOPHAGE) 1,000 mg tablet Take 1,000 mg by mouth twice daily with meals. albuterol HFA (PROVENTIL HFA) inhaler Inhale 2 Puffs as instructed every 6 hours as needed for wheezing/shortness of breath. - LABORATORY VALUES: WBC (k/uL) Date Value 07/07/2023 9.13 RBC (m/uL) Date Value 07/07/2023 4.44 Hemoglobin (g/dL) (more content not included)... Normal [facility] Kimberlee 07-08-2023 KAYLANN Telephone ([facility]) JEANNETTE HURTADO ([id number]) 1965 F Date Time Provider Department 07/08/23 MANUEL RIVERS [facility] During your visit today, we recorded the following information about you: Manuel Rivers RPh 07/08/2023 1:35 PM Signed Iron studies do not meet criteria for venofer infusions. Please cancel upcoming venofer appointment 07/11. Thank you, Manuel Rivers [facility] Tran [place]amo 07/08/2023 2:51 PM Signed Appointment for Venofer cancelled. Spoke w/ patient and notified she will not receive Venofer on Tuesday and just see Ruben. Patient in agreement. Thanks! Tran [place] Allergies As of Date: 07/08/2023 Noted Allergy Reaction COMPAZINE (PROCHLORPERAZINE EDISY*01/13/2005 LATEX 01/21/2023 16 - Unknown Date Reviewed: 04/04/2023 Reviewed by: Ruben Wiggins APRN.SOLUTION ANALYST - Fully Assessed Reason for Visit: Medication Follow-up [270] Cmt: venofer Prescriptions as of 07/08/2023 - B-complex with vitamin C (VITAMIN B COMPLEX-C ORAL) Take by mouth. - ascorbic acid (VITAMIN C ORAL) Take by mouth. - sertraline (ZOLOFT) 25 mg tablet Take 25 mg by mouth once daily. - esomeprazole (NEXIUM) 20 mg capsule Take 20 mg by mouth once daily. - metFORMIN (GLUCOPHAGE) 1,000 mg tablet Take 1,000 mg by mouth twice daily with meals. - albuterol HFA (PROVENTIL HFA) inhaler Inhale 2 Puffs as instructed every 6 hours as needed for wheezing/shortness of breath. Problem List As Of Date 07/08/2023 Noted Resolved HIDRADENITIS [L73.2] 01/13/2005 Iron deficiency anemia secondary to inadequate *02/07/2023 Encounter Status:Closed by TRAN ALAMO on 07/08/23 Normal [facility] ECG 12 lead ECGon 07-08-2023 ECG 12 lead ECG [facility] Main [place] [id number] Electrocardiograph Report Signed Patient: Jeannette Hurtado MR#: [id number] : 1965 Acct:[id number] Age/Sex: 57 / F ADM Date: 07/08/23 Loc: Room: Type: [facility] Attending Dr: Haresh Middleton MD Ordering Provider: Frances Hidalog DO Date of Service: 07/08/23 ECG/ECG 12 lead ECG: Post Angioplasty Procedure Copies to: Test Reason : Blood Pressure : / mmHG Vent. Rate : 061 BPM Atrial Rate : 061 BPM P-R Int : 164 ms QRS Dur : 092 ms QT Int : 426 ms P-R-T Axes : 028 010 014 degrees QTc Int : 428 ms Normal sinus rhythm Minimal voltage criteria for LVH, may be normal variant Septal infarct , age undetermined Abnormal ECG No previous ECGs available Confirmed by GUZMAN DUPREE [facility] ([id number] on 07/08/2023 6:05:38 PM Referred By: YESI Electronically Signed By:CLAUDIA MURCIA MD [facility] Transcribed By: MUS Signed By Clayton Murcia MD 07/08/23 1805 Normal [facility] Absolute reticulocyte counto n 07-07-2023 Reticulocytes (Bld) [#/Vol] 0.97285 10*3/uL 0.018-0.10 0 [facility] Basophils Auto (Bld) [#/Vol] on 07-07-2023 Basophils (Bld) [#/Vol] 0.07 10*3/uL <0.11 [facility] Basophils/100 WBC Auto (Bld) on 07-07-2023 Basophils/100 WBC (Bld) 0.8 % [facility] Blood manual differential co mment interpretation narrativeon 07-07-2023 Manual differential comment Alec (Bld) [Interp] Auto [facility] CBC W Auto Differential pane l (Bld)on 07-07-2023 Basophils (Bld) [#/Vol] 0.07 10*3/uL Normal <0.11 [facility] Comment on above: Order Comment: Speci men Type: BLOOD SPECIMENOrdering Facility: [facility] Address: [address] [place] [address] Performed By: #### 5 7021-8, 59232-7 ####[facility] [id number] [place] [address] Basophils/100 WBC (Bld) 0.8 % Normal [facility] Comment on above: Order Comment: Speci men Type: BLOOD SPECIMENOrdering Facility: [facility] Address: [address] [place] [address] Performed By: #### 5 7021-8, 17485-0 ####[facility] [id number] [place] [address] Differential cell count method Nom (Bld) Auto Normal [facility] Comment on above: Order Comment: Speci men Type: BLOOD SPECIMENOrdering Facility: [facility] Address: [address] [place] [address] Performed By: #### 5 7021-8, 72385-6 ####[facility] [id number] [place] [address] Eosinophils (Bld) [#/Vol] 0.22 10*3/uL Normal <0.46 [facility] Comment on above: Order Comment: Speci men Type: BLOOD SPECIMENOrdering Facility: [facility] Address: [address] [place] [address] Performed By: #### 5 7021-8, 05913-6 ####[facility] [id number] [place] [address] Eosinophils/100 WBC (Bld) 2.4 % Normal [facility] Comment on above: Order Comment: Speci men Type: BLOOD SPECIMENOrdering Facility: [facility] Address: [address] [place] [address] Performed By: #### 5 7021-8, 57332-0 ####[facility] [id number] [place] [address] Erythrocyte distribution width (RBC) [Ratio] 12.9 % Normal 11.5-15.0 [facility] Comment on above: Order Comment: Speci men Type: BLOOD SPECIMENOrdering Facility: [facility] Address: [address] [place] [address] Performed By: #### 5 7021-8, 66457-4 ####[facility] [id number] [place] [address] Hematocrit (Bld) [Volume fraction] 40.0 % Normal 36.0-46.0 [facility] Comment on above: Order Comment: Speci men Type: BLOOD SPECIMENOrdering Facility: [facility] Address: [address] [place] [address] Performed By: #### 5 7021-8, 76741-4 ####[facility] [id number] [place] [address] Hemoglobin (Bld) [Mass/Vol] 13.5 g/dL Normal 11.5-15.5 [facility] Comment on above: Order Comment: Speci men Type: BLOOD SPECIMENOrdering Facility: [facility] Address: [address] [place] [address] Performed By: #### 5 7021-8, 31862-6 ####[facility]IA [id number] [place] [address] Immature granulocytes (Bld) [#/Vol] 10*3/uL Normal <0.10 [facility] Comment on above: Order Comment: Speci men Type: BLOOD SPECIMENOrdering Facility: [facility] Address: [address] [place] [address] Performed By: #### 5 7021-8, 00140-7 ####[facility] [id number] [place] [address] Immature granulocytes/100 WBC (Bld) 0.2 % Normal [facility] Comment on above: Order Comment: Speci men Type: BLOOD SPECIMENOrdering Facility: [facility] Address: [address] [place] [address] Performed By: #### 5 7021-8, 90128-0 ####[facility] [id number] [place] [address] Lymphocytes (Bld) [#/Vol] 2.16 10*3/uL Normal 1.00-4.00 [facility] Comment on above: Order Comment: Speci men Type: BLOOD SPECIMENOrdering Facility: [facility] Address: [address] [place] [address] Performed By: #### 5 7021-8, 88290-3 ####[facility] [id number] [place] [address] Lymphocytes/100 WBC (Bld) 23.7 % Normal [facility] Comment on above: Order Comment: Speci men Type: BLOOD SPECIMENOrdering Facility: [facility] Address: [address] [place] [address] Performed By: #### 5 7021-8, 31656-9 ####[facility] [id number] [place] [address] MCH (RBC) [Entitic mass] 30.4 pg Normal 26.0-34.0 [facility] Comment on above: Order Comment: Speci men Type: BLOOD SPECIMENOrdering Facility: [facility] Address: [address] [place] [address] Performed By: #### 5 7021-8, 42532-4 ####[facility] [id number] [place] [address] MCHC (RBC) [Mass/Vol] 33.8 g/dL Normal 30.5-36.0 [facility] Comment on above: Order Comment: Speci men Type: BLOOD SPECIMENOrdering Facility: [facility] Address: [address] [place] [address] Performed By: #### 5 7021-8, 42166-5 ####[facility] [id number] [place] [address] MCV (RBC) [Entitic vol] 90.1 fL Normal 80.0-100.0 [facility] Comment on above: Order Comment: Speci men Type: BLOOD SPECIMENOrdering Facility: [facility] Address: [address] [place] [address] Performed By: #### 5 7021-8, 86449-0 ####[facility] [id number] [place] [address] Monocytes (Bld) [#/Vol] 0.63 10*3/uL Normal <0.87 [facility] Comment on above: Order Comment: Speci men Type: BLOOD SPECIMENOrdering Facility: [facility] Address: [address] [place] [address] Performed By: #### 5 7021-8, 07696-7 ####[facility] [id number] [place] [address] Monocytes/100 WBC (Bld) 6.9 % Normal [facility] Comment on above: Order Comment: Speci men Type: BLOOD SPECIMENOrdering Facility: [facility] Address: [address] [place] [address] Performed By: #### 5 7021-8, 07978-0 ####[facility] [id number] [place] [address] Neutrophils (Bld) [#/Vol] 6.03 10*3/uL Normal 1.45-7.50 [facility] Comment on above: Order Comment: Speci men Type: BLOOD SPECIMENOrdering Facility: [facility] Address: [address] [place] [address] Performed By: #### 5 7021-8, 33189-0 ####[facility] [id number] [place] [address] Neutrophils/100 WBC (Bld) 66.0 % Normal [facility] Comment on above: Order Comment: Speci men Type: BLOOD SPECIMENOrdering Facility: [facility] Address: [address] [place] [address] Performed By: #### 5 7021-8, 91234-8 ####[facility] [id number] [place] [address] Nucleated RBC (Bld) [#/Vol] 10*3/uL Normal <0.01 [facility] Comment on above: Order Comment: Speci men Type: BLOOD SPECIMENOrdering Facility: [facility] Address: [address] [place] [address] Performed By: #### 5 7021-8, 04905-2 ####[facility] [id number] [place] [address] Nucleated RBC/100 WBC (Bld) [Ratio] 0.0 /100 WBC Normal [facility] Comment on above: Order Comment: Speci men Type: BLOOD SPECIMENOrdering Facility: [facility] Address: [address] [place] [address] Performed By: #### 5 7021-8, 32778-8 ####[facility] LABIA [id number] [place] [address] Platelet mean volume (Bld) [Entitic vol] 9.5 fL Normal 9.0-12.7 [facility] Comment on above: Order Comment: Speci men Type: BLOOD SPECIMENOrdering Facility: [facility] Address: [address] [place] [address] Performed By: #### 5 7021-8, 36110-9 ####[facility] [id number] [place] [address] Platelets (Bld) [#/Vol] 237 10*3/uL Normal 150-400 [facility] Comment on above: Order Comment: Speci men Type: BLOOD SPECIMENOrdering Facility: [facility] Address: [address] [place], [place] [address] Performed By: #### 5 7021-8, 35763-5 ####[facility] [id number] [place] [address] RBC (Bld) [#/Vol] 4.44 10*6/uL Normal 3.90-5.20 [facility] Comment on above: Order Comment: Speci men Type: BLOOD SPECIMENOrdering Facility: [facility] Address: [address] [place] [address] Performed By: #### 5 7021-8, 41054-8 ####[facility] [id number] [place] [address] WBC (Bld) [#/Vol] 9.13 10*3/uL Normal 3.70-11.00 [facility] Comment on above: Order Comment: Speci men Type: BLOOD SPECIMENOrdering Facility: [facility] Address: [address] [place] [address] Performed By: #### 5 7021-8, 17579-3 ####[facility] LABIA [id number] [place] [address] Comprehensive metabolic 2000 panelon 07-07-2023 Albumin [Mass/Vol] 4.4 g/dL Normal 3.9-4.9 [facility] Comment on above: Order Comment: Speci men Type: BLOOD SPECIMENOrdering Facility: [facility] Address: [address] [place] [address] Performed By: #### 2 4323-8 ####[facility]IA [id number] [place] [address] ALP [Catalytic activity/Vol] 117 U/L Normal 34-123 [facility] Comment on above: Order Comment: Speci men Type: BLOOD SPECIMENOrdering Facility: [facility] Address: [address] [place] [address] Performed By: #### 2 4323-8 ####[facility]CL[facility] [id number] [place] [address] ALT [Catalytic activity/Vol] 89 U/L High 7-38 [facility] Comment on above: Order Comment: Speci men Type: BLOOD SPECIMENOrdering Facility: [facility] Address: [address] [place] [address] Performed By: #### 2 4323-8 ####[facility]CL[facility] [id number] [place] [address] Anion gap [Moles/Vol] 12 mmol/L Normal 9-18 [facility] Comment on above: Order Comment: Speci men Type: BLOOD SPECIMENOrdering Facility: [facility] Address: [address] [place] [address] Performed By: #### 2 4323-8 ####[facility]CL[facility] [id number] [place] [address] [facility] [Catalytic activity/Vol] 87 U/L High 13-35 [facility] Comment on above: Order Comment: Speci men Type: BLOOD SPECIMENOrdering Facility: [facility] Address: [address] [place] [address] Performed By: #### 2 4323-8 ####[facility] LABCLIA [id number] [place] [address] Bilirubin [Mass/Vol] 0.4 mg/dL Normal 0.2-1.3 [facility] Comment on above: Order Comment: Speci men Type: BLOOD SPECIMENOrdering Facility: [facility] Address: [address] [place], [place] [address] Performed By: #### 2 4323-8 ####[facility] LABCLIA [id number] [place] [address] Calcium [Mass/Vol] 9.4 mg/dL Normal 8.5-10.2 [facility] Comment on above: Order Comment: Speci men Type: BLOOD SPECIMENOrdering Facility: [facility] Address: [address] [place], [place] [address] Performed By: #### 2 4323-8 ####[facility] LABCLIA [id number] [place] [address] Chloride [Moles/Vol] 102 mmol/L Normal 97-105 [facility] Comment on above: Order Comment: Speci men Type: BLOOD SPECIMENOrdering Facility: [facility] Address: [address] [place] [address] Performed By: #### 2 4323-8 ####[facility] LABCLIA [id number] [place] [address] CO2 [Moles/Vol] 23 mmol/L Normal 22-30 [facility] Comment on above: Order Comment: Speci men Type: BLOOD SPECIMENOrdering Facility: [facility] Address: [address] [place] [address] Performed By: #### 2 4323-8 ####[facility] LABCLIA [id number] [place] [address] Creatinine [Mass/Vol] 0.81 mg/dL Normal 0.58-0.96 [facility] Comment on above: Order Comment: Speci men Type: BLOOD SPECIMENOrdering Facility: [facility] Address: [address] [place] [address] Performed By: #### 2 4323-8 ####[facility] LABCLIA [id number] [place] [address] Creatinine and Glomerular filtration rate.predicted panel (S/P/Bld) 84 mL/min/1.73m??? Normal >=60 [facility] Comment on above: Order Comment: Speci men Type: BLOOD SPECIMENOrdering Facility: [facility] Address: [address] [place] [address] Result Comment: Michaela mated Glomerular Filtration Rate (eGFR) is calculated using the 2020 CKD-EPI creatinine equation. This equation utilizes serum creatinine, sex, and age as parameters. The creatinine assay has traceable calibration to isotope dilution-mass spectrometry. Refer to KDIGO guidelines for clinical interpretation. In patients with unstable renal function, e.g. those with acute kidney injury, the eGFR may not accurately reflect actual GFR. Performed By: #### 2 4323-8 ####[facility] LABCLIA [id number] [place] [address] Glucose [Mass/Vol] 144 mg/dL High 74-99 [facility] Comment on above: Order Comment: Speci men Type: BLOOD SPECIMENOrdering Facility: [facility] Address: [address] [place], [place] [address] Result Comment: The [place] Diabetes Association (ADA) provides guidance for cutoff values for fasting glucose and random glucose. The ADA defines fasting as no caloric intake for at least 8 hours. Fasting plasma glucose results between 100 to 125 mg/dL indicate increased risk for diabetes (prediabetes). Fasting plasma glucose results greater than or equal to 126 mg/dL meet the criteria for diagnosis of diabetes. In the absence of unequivocal hyperglycemia, results should be confirmed by repeat testing. In a patient with classic symptoms of hyperglycemia or hyperglycemic crisis, random plasma glucose results greater than or equal to 200 mg/dL meet the criteria for diagnosis of diabetes. Reference: Standards of Medical Care in Diabetes 2016, [place] Diabetes Association. Diabetes Care. 2016.39(Suppl 1). Performed By: #### 2 4323-8 ####[facility] LABCLIA [id number] [place] [address] Potassium [Moles/Vol] 4.1 mmol/L Normal 3.7-5.1 [facility] Comment on above: Order Comment: Speci men Type: BLOOD SPECIMENOrdering Facility: [facility] Address: [address] [place] [address] Performed By: #### 2 4323-8 ####[facility] LABCLIA [id number] [place] [address] Protein [Mass/Vol] 7.3 g/dL Normal 6.3-8.0 [facility] Comment on above: Order Comment: Speci men Type: BLOOD SPECIMENOrdering Facility: [facility] Address: [address] [place], [place] [address] Performed By: #### 2 4323-8 ####[facility] LABCLIA [id number] [place] [address] Sodium [Moles/Vol] 137 mmol/L Normal 136-144 [facility] Comment on above: Order Comment: Speci men Type: BLOOD SPECIMENOrdering Facility: [facility] Address: [address] [place] [address] Performed By: #### 2 4323-8 ####[facility] LABCLIA [id number] [place] [address] Urea nitrogen [Mass/Vol] 15 mg/dL Normal 7-21 [facility] Comment on above: Order Comment: Speci men Type: BLOOD SPECIMENOrdering Facility: [facility] Address: [address] [place] [address] Performed By: #### 2 4323-8 ####[facility] LABCLIA [id number] [place] [address] Eosinophils/100 WBC Auto (Bl d)on 07-07-2023 Eosinophils/100 WBC (Bld) 2.4 % [facility] Erythrocyte distribution wid th Auto (RBC) [Ratio]on 07-07-2023 Erythrocyte distribution width (RBC) [Ratio] 12.9 % 11.5-15.0 [facility] Ferritin SerPl-mCncon 2023 Ferritin [Mass/Vol] 267.0 ng/mL High 14.7-205.1 [facility] Comment on above: Order Comment: Speci men Type: BLOOD SPECIMENOrdering Facility: [facility] Address: [address] [place] [address] Performed By: #### 2 132-9, 2276-4, 23049-3, 2284-8 ####[facility] LABCLIA [id number] [place] [address] [place] Folate SerPl-mCncon 07-07-19 24 Folate [Mass/Vol] 10.1 ng/mL Normal >4.7 [facility] Comment on above: Order Comment: Speci men Type: BLOOD SPECIMENOrdering Facility: [facility] Address: [address] [place] [address] Performed By: #### 2 132-9, 6-4, 86580-1, 8 ####[facility] LABCLIA [id number] [place] [id number] [place] Hematocrit Auto (Bld) [Volum e fraction]on 07-07-2023 Hematocrit (Bld) [Volume fraction] 40.0 % 36.0-46.0 [facility] Hemoglobin [Mass/volume] in Bloodon 07-07-2023 Hemoglobin (Bld) [Mass/Vol] 13.5 g/dL 11.5-15.5 [facility] Iron and Iron binding capaci ty panelon 07-07-2023 Iron [Mass/Vol] 59 ug/dL Normal 41-186 [facility] Comment on above: Order Comment: Speci men Type: BLOOD SPECIMENOrdering Facility: [facility] Address: [address] [place] [address] Performed By: #### 2 132-9, 6-4, 34826-6, 8 ####[facility] LABIA [id number] [place] [address] [place] Iron binding capacity [Mass/Vol] 351 ug/dL Normal 232-386 [facility] Comment on above: Order Comment: Speci men Type: BLOOD SPECIMENOrdering Facility: [facility] Address: [address] [place] [address] Performed By: #### 2 132-9, 6-4, 56078-5, 8 ####[facility] LABCLIA [id number] [place] [id number] [place] Iron/TIBC [Molar ratio] 16.8 % Normal 15.0-57.0 [facility] Comment on above: Order Comment: Speci men Type: BLOOD SPECIMENOrdering Facility: [facility] Address: [address] [place] [address] Performed By: #### 2 132-9, 6-4, 45543-9, 8 ####[facility] LABCLIA [id number] [place] [address] [place] Iron binding capacity [Mass/ volume] in Serum or Plasmaon 07-07-2023 Iron binding capacity [Mass/Vol] 351 ug/dL 232-386 [facility] Iron saturation [Mass Fracti on] in Serum or Plasmaon 07-07-2023 Iron saturation [Mass fraction] 16.8 % 15.0-57.0 [facility] Laboratory - Chemistry and C hemistry - challengeon 07-07-2023 Albumin [Mass/Vol] 4.4 g/dL 3.9-4.9 [facility] ALP [Catalytic activity/Vol] 117 U/L 34-123 [facility] ALT [Catalytic activity/Vol] 89 U/L 7-38 [facility] AST [Catalytic activity/Vol] 87 U/L 13-35 [facility] Bilirubin [Mass/Vol] 0.4 mg/dL 0.2-1.3 [facility] Calcium [Mass/Vol] 9.4 mg/dL 8.5-10.2 [facility] Chloride [Moles/Vol] 102 mmol/L 97-105 [facility] CO2 [Moles/Vol] 23 mmol/L 22-30 [facility] Cobalamin (Vitamin B12) [Mass/Vol] 599 pg/mL 232-1245 [facility] Creatinine [Mass/Vol] 0.81 mg/dL 0.58-0.96 [facility] Ferritin [Mass/Vol] 267.0 ng/mL 14.7-205.1 [facility] Glucose [Mass/Vol] 144 mg/dL 74-99 [facility] Comment on above: The [place] Diabete s Association (ADA) provides guidance for cutoff values for fasting glucose and random glucose. The ADA defines fasting as no caloric intake for at least 8 hours. Fasting plasma glucose results between 100 to 125 mg/dL indicate increased risk for diabetes (prediabetes).Fasting plasma glucose results greater than or equal to 126 mg/dL meet the criteria for diagnosis of diabetes. In the absence of unequivocal hyperglycemia, results should be confirmed by repeat testing. In a patient with classic symptoms of hyperglycemia or hyperglycemic crisis, random plasma glucose results greater than or equal to 200 mg/dL meet the criteria for diagnosis of diabetes.Reference: Standards of Medical Care in Diabetes 2016, [place] [employer]. Diabetes Care. 2016.39(Suppl 1). Iron [Mass/Vol] 59 ug/dL 41-186 [facility] Potassium [Moles/Vol] 4.1 mmol/L 3.7-5.1 [facility] Protein [Mass/Vol] 7.3 g/dL 6.3-8.0 [facility] Sodium [Moles/Vol] 137 mmol/L 136-144 [facility] Urea nitrogen [Mass/Vol] 15 mg/dL 7-21 [facility] Laboratory - Hematology and Cell countson 07-07-2023 Eosinophils (Bld) [#/Vol] 0.22 10*3/uL <0.46 [facility] Immature granulocytes/100 WBC (Bld) 0.2 % [facility] Leukocytes [#/volume] correc ifrah for nucleated erythrocytes in Blood by Automated counon 07-07-2023 WBC corrected for nucl RBC Auto (Bld) [#/Vol] 9.13 k/uL 3.70-11.00 [facility] Lymphocytes Auto (Bld) [#/Vo l]on 07-07-2023 Lymphocytes (Bld) [#/Vol] 2.16 10*3/uL 1.00-4.00 [facility] Lymphocytes/100 WBC Auto (Bl d)on 07-07-2023 Lymphocytes/100 WBC (Bld) 23.7 % [facility] MCH Auto (RBC) [Entitic mass ]on 07-07-2023 MCH (RBC) [Entitic mass] 30.4 pg 26.0-34.0 [facility] MCHC Auto (RBC) [Mass/Vol]on 07-07-2023 MCHC (RBC) [Mass/Vol] 33.8 g/dL 30.5-36.0 [facility] MCV Auto (RBC) [Entitic vol] on 07-07-2023 MCV (RBC) [Entitic vol] 90.1 fL 80.0-100.0 [facility] Monocytes Auto (Bld) [#/Vol] on 07-07-2023 Monocytes (Bld) [#/Vol] 0.63 10*3/uL <0.87 [facility] Monocytes/100 WBC Auto (Bld) on 07-07-2023 Monocytes/100 WBC (Bld) 6.9 % [facility] Neutrophils Auto (Bld) [#/Vo l]on 07-07-2023 Neutrophils (Bld) [#/Vol] 6.03 10*3/uL 1.45-7.50 [facility] Neutrophils/100 WBC Auto (Bl d)on 07-07-2023 Neutrophils/100 WBC (Bld) 66.0 % [facility] No Panel Informationon 07-07 Estimated GFR (CKD-EPI) 84 mL/min/1.73m??? >=60 [facility] Comment on above: Estimated Glomerular Filtration Rate (eGFR) is calculated using the 2020 CKD-EPI creatinine equation. This equation utilizes serum creatinine, sex, and age as parameters. The creatinine assay has traceable calibration to isotope dilution-mass spectrometry. Refer to KDIGO guidelines for clinical interpretation. In patients with unstable renal function, e.g. those with acute kidney injury, the eGFR may not accurately reflect actual GFR. Folate 10.1 ng/mL >4.7 [facility] Immature Granulocyte # (Auto) <0.03 k/uL <0.10 [facility] Nucleated RBC Auto (Bld) [#/ Vol]on 07-07-2023 Nucleated RBC (Bld) [#/Vol] 10*3/uL <0.01 [facility] Nucleated erythrocytes [Pres ence] in Blood by Automated counton 07-07-2023 Nucleated RBC Auto Ql (Bld) 0.0 /100{WBC} [facility] Platelet mean volume Auto (B ld) [Entitic vol]on 07-07-2023 Platelet mean volume (Bld) [Entitic vol] 9.5 fL 9.0-12.7 [facility] Platelets Auto (Bld) [#/Vol] on 07-07-2023 Platelets (Bld) [#/Vol] 237 10*3/uL 150-400 [facility] RBC Auto (Bld) [#/Vol]on RBC (Bld) [#/Vol] 4.44 10*6/uL 3.90-5.20 [facility] #on 07-07-2023 Reticulocytes (Bld) [#/Vol] 0.93901 10*3/uL Normal 0.018-0.10 0 [facility] Comment on above: Order Comment: Speci men Type: BLOOD SPECIMENOrdering Facility: [facility] Address: [address] [place] [address] Performed By: #### 5 7021-8, 47745-3 ####[facility] LABCLIA [id number] [place] [address] Reticulocytes (Bld) [#/Vol]o n 07-07-2023 Reticulocytes/100 RBC (Bld) 1.4 % Normal 0.4-2.0 [facility] Comment on above: Order Comment: Speci men Type: BLOOD SPECIMENOrdering Facility: [facility] Address: [address] [place] [address] Performed By: #### 5 7021-8, 14353-4 ####[facility] LABCLIA [id number] [place] [address] Reticulocytes/100 RBC Auto ( Bld)on 07-07-2023 Reticulocytes/100 RBC (Bld) 1.4 % 0.4-2.0 [facility] Serum or plasma anion gap de terminationon 07-07-2023 Anion gap [Moles/Vol] 12 mmol/L 9-18 [facility] Vit B12 SerPl-mCncon 024 Cobalamin (Vitamin B12) [Mass/Vol] 599 pg/mL Normal 232-1245 [facility] Comment on above: Order Comment: Speci men Type: BLOOD SPECIMENOrdering Facility: [facility] Address: [address] [place] [address] Performed By: #### 2 132-9, 2276-4, 44700-4, 2284-8 ####[facility] LABCLIA [id number] [facility] [id number] [place] [address] [place] Activated partial thrombopla stin time (aPTT) in platelet poor plasma by coagulation aOrdered By: Haresh Middleton on 07-06-2023 aPTT Coag (PPP) [Time] 27.3 s 25.1-36.5 [facility] Comment on above: A hematocrit value g reater than 55% may lead to inaccurate results in coagulation testing. Patients having hematocrit values >55% require a special collection tube for coagulation studies. Please contact the laboratory at [phone] for redraw instructions. Automated basophil %Ordered By: Haresh Middleton on 07-06-2023 Basophils/100 WBC (Bld) 0.6 % Normal . [facility] Comment on above: Performed By: #### L YTES, LIPID, CBC, BUN, PP, CREAT #### [facility] [address] [place] [address] Automated basophil countOrde red By: Haresh Middleton on 07-06-2023 Basophils (Bld) [#/Vol] 0.1 10*3/uL Normal 0.0-0.2 [facility] Comment on above: Result Comment: PERF ORMED BY: [place] [address] PATHOLOGIST [employer]ATIONAL TECH[employer] EDUCATION TEACHER NHI ARNOLD M.D. Performed By: #### L YTES, LIPID, CBC, BUN, PP, CREAT #### [facility] [address] [place] [address] Automated blood monocyte cou ntOrdered By: Haresh Middleton on 07-06-2023 Monocytes (Bld) [#/Vol] 0.8 10*3/uL Normal 0.0-0.8 [facility] Comment on above: Performed By: #### L YTES, LIPID, CBC, BUN, PP, CREAT #### [facility] [address] [place] [address] Automated eosinophil %Ordere d By: Haresh Middleton on 07-06-2023 Eosinophils/100 WBC (Bld) 2.3 % Normal . [facility] Comment on above: Performed By: #### L YTES, LIPID, CBC, BUN, PP, CREAT #### [address] Automated eosinophil countOr dered By: Haresh Middleton on 07-06-2023 Eosinophils (Bld) [#/Vol] 0.2 10*3/uL Normal 0.0-0.45 [facility] Comment on above: Performed By: #### L YTES, LIPID, CBC, BUN, PP, CREAT #### [address] Automated monocyte %Ordered By: Haresh Middleton on 07-06-2023 Monocytes/100 WBC (Bld) 9.6 % Normal . [facility] Comment on above: Performed By: #### L YTES, LIPID, CBC, BUN, PP, CREAT #### [address] Automated neutrophil %Ordere d By: Haresh Middleton on 07-06-2023 Neutrophils/100 WBC (Bld) 59.4 % Normal . [facility] Comment on above: Performed By: #### L YTES, LIPID, CBC, BUN, PP, CREAT #### [address] Carbon dioxide, total [Moles /volume] in Serum or PlasmaOrdered By: Haresh Middleton on 07-06-2023 CO2 [Moles/Vol] 26.2 mmol/L Normal 21.0-31.0 [facility] Comment on above: Performed By: #### L YTES, LIPID, CBC, BUN, PP, CREAT #### [place] [address] [place] Chloride [Moles/volume] in S chris or PlasmaOrdered By: Haresh Middleton on 07-06-2023 Chloride [Moles/Vol] 105 mmol/L Normal 98-107 [facility] Comment on above: Performed By: #### L YTES, LIPID, CBC, BUN, PP, CREAT #### [place] [address] [place] Cholesterol [Mass/volume] in Serum or PlasmaOrdered By: Haresh Middleton on 07-06-2023 Cholesterol [Mass/Vol] 134 mg/dL Low 140-200 [facility] Comment on above: Chol less than 200 m g/dl low riskChol 201-239 mg/dl borderline riskChol 240 mg/dl and greater high risk Result Comment: Chol less than 200 mg/dl low risk Chol 201-239 mg/dl borderline risk Chol 240 mg/dl and greater high risk Performed By: #### L YTES, LIPID, CBC, BUN, PP, CREAT ####[facility] [address] [place] [address] [facility] Cholesterol in LDL Calc [Mas s/Vol]Ordered By: Haresh Middleton on 07-06-2023 Cholesterol in LDL [Mass/Vol] 75 mg/dL 0-100 [facility] Comment on above: LDL ATP III CLASSIFI CATIONLDL less than 100 mg/dL OptimalLDL 100-129 mg/dL Near or above optimalLDL 130-159 mg/dL Borderline highLDL 160-189 mg/dL HighLDL greater than 189 mg/dL Very high Cholesterol in VLDL Calc [Ma ss/Vol]Ordered By: Haresh Middleton on 07-06-2023 Cholesterol in VLDL [Mass/Vol] 27 mg/dL [facility] Coagulation Profileon 2023 aPTT Coag (Bld) [Time] 27.3 s Normal 25.1-36.5 [facility] Comment on above: Result Comment: A he matocrit value greater than 55% may lead to inaccurate results in coagulation testing. Patients having hematocrit values >55% require a special collection tube for coagulation studies. Please contact the laboratory at [phone] for redraw instructions. PERFORMED BY: [facility] [address] [facility] [place] [id number] PATHOLOGIST VOCATIONAL TECHNICAL EDUCATION TEACHER NHI ARNOLD M.D. Performed By: #### L YTES, LIPID, CBC, BUN, PP, CREAT #### [facility] [address] [place] [address] [facility] Complete Blood Count Auto Di ffon 07-06-2023 Mean Corpuscular HGB Conc 34.0 g/dL Normal 32.0-35.0 [facility] Comment on above: Performed By: #### L YTES, LIPID, CBC, BUN, PP, CREAT #### [address] NRBC% 0.1 /100{WBC} Normal 0-0.5 [facility] Comment on above: Performed By: #### L YTES, LIPID, CBC, BUN, PP, CREAT #### [facility] [address] [place] [id number] [facility] Creatinineon 07-06-2023 GFR/1.73 sq M.predicted MDRD (S/P/Bld) [Vol rate/Area] mL/min/{1.73_m2} Normal [facility] Comment on above: Performed By: #### L YTES, LIPID, CBC, BUN, PP, CREAT ####[address] Creatinine [Mass/volume] in Serum or PlasmaOrdered By: Haresh Middleton on 07-06-2023 Creatinine [Mass/Vol] 0.76 mg/dL Normal 0.60-1.20 [facility] Comment on above: Performed By: #### L YTES, LIPID, CBC, BUN, PP, CREAT ####[place] [address] [place] [id number] [facility] ECG 12 lead ECGon 07-06-2023 ECG 12 lead ECG [facility] [address] [place] [address] [place] [address] Electrocardiograph Report Signed Patient: Jeannette Hurtado MR#: [id number] : 1965 Acct:[id number] Age/Sex: 57 / F ADM Date: 07/06/23 Loc: Room: Type: [facility] Attending Dr: Haresh Middleton MD Ordering Provider: Haresh Middleton MD Date of Service: 07/06/23 ECG/ECG 12 lead ECG: [facility] for [facility] Copies to: Test Reason : Blood Pressure : / mmHG Vent. Rate : 068 BPM Atrial Rate : 068 BPM P-R Int : 154 ms QRS Dur : 078 ms QT Int : 404 ms P-R-T Axes : 034 013 009 degrees QTc Int : 429 ms Normal sinus rhythm Nonspecific ST and T wave abnormality Abnormal ECG No previous ECGs available Confirmed by GUZMAN DUPREE [facility] ([id number]) on 07/06/2023 5:49:35 PM Referred By: EMI Electronically Signed By:CLAUDIA MURCIA MD [facility] Transcribed By: MUS Signed By Clayton Murcia MD 07/06/23 1749 Normal [facility] Erythrocyte distribution wid th [Ratio] by Automated countOrdered By: Haresh Middleton on 07-06-2023 Erythrocyte distribution width (RBC) [Ratio] 13.3 % Normal 11.9-15.3 [facility] Comment on above: Performed By: #### L YTES, LIPID, CBC, BUN, PP, CREAT #### [facility] [address] [place] [address] Erythrocytes [#/volume] in B lood by Automated countOrdered By: Haresh Middleton on 07-06-2023 RBC (Bld) [#/Vol] 4.31 10*6/uL Normal 3.60-5.00 [facility] Comment on above: Performed By: #### L YTES, LIPID, CBC, BUN, PP, CREAT #### [facility] [address] [place] [address] Hematocrit [Volume Fraction] of Blood by Automated countOrdered By: Haersh Middleton on 07-06-2023 Hematocrit (Bld) [Volume fraction] 38.7 % Normal 34.0-46.4 [facility] Comment on above: Performed By: #### L YTES, LIPID, CBC, BUN, PP, CREAT #### [facility] [address] [place] [address] Hemoglobin [Mass/volume] in BloodOrdered By: Haresh Middleton on 07-06-2023 Hemoglobin (Bld) [Mass/Vol] 13.2 g/dL Normal 11.8-15.4 [facility] Comment on above: Performed By: #### L YTES, LIPID, CBC, BUN, PP, CREAT #### [facility] [address] INR in Platelet poor plasma by Coagulation assayOrdered By: Haresh Middleton on 07-06-2023 INR Coag (PPP) [Relative time] 1.0 {INR} Normal [facility] Comment on above: INR Therapeutic Rang e A) Pre- and Peroperative OAT started two weeks before surgery. NOT HIP SURGERY: 1.5 - 2.5 HIP SURGERY: 2 - 3B) Primary and secondary prevention of venous THROMBOSIS: 2 - 3C) Active venous thrombosis, pulmonary embolismand prevention of recurrent venous thrombosis: 2 - 3D) Prevention of arterial thromboembolismincluding patients with mechanical heart valves: 3 - 4.5 Result Comment: INR Therapeutic Range A) Pre- and Peroperative OAT started two weeks before surgery. NOT HIP SURGERY: 1.5 - 2.5 HIP SURGERY: 2 - 3 B) Primary and secondary prevention of venous THROMBOSIS: 2 - 3 C) Active venous thrombosis, pulmonary embolism and prevention of recurrent venous thrombosis: 2 - 3 D) Prevention of arterial thromboembolism including patients with mechanical heart valves: 3 - 4.5 Performed By: #### L YTES, LIPID, CBC, BUN, PP, CREAT #### [facility] [address] Leukocytes [#/volume] correc ifrah for nucleated erythrocytes in Blood by Automated counOrdered By: Haresh Middleton on 07-06-2023 WBC corrected for nucl RBC Auto (Bld) [#/Vol] 8.1 10*3/uL 3.8-11.6 [facility] Leukocytes [#/volume] in Blo od by Automated countOrdered By: Haresh Middleton on 07-06-2023 WBC (Bld) [#/Vol] 8.1 10*3/uL Normal 3.8-11.6 [facility] Comment on above: Performed By: #### L YTES, LIPID, CBC, BUN, PP, CREAT #### [facility] [address] Lipid Panelon 07-06-2023 LDL Cholesterol,Calculate d 75 mg/dL Normal 0-100 [facility] Comment on above: Result Comment: LDL ATP III CLASSIFICATION LDL less than 100 mg/dL Optimal LDL 100-129 mg/dL Near or above optimal LDL 130-159 mg/dL Borderline high LDL 160-189 mg/dL High LDL greater than 189 mg/dL Very high Performed By: #### L YTES, LIPID, CBC, BUN, PP, CREAT ####[facility] Triglyceride w/Reflex 138 mg/dL Normal 0-149 [facility] Comment on above: Result Comment: TRIG ATP III CLASSIFICATION TRIG less than 150 mg/dL Normal TRIG 150-199 mg/dL Borderline high TRIG 200-500 mg/dL High TRIG greater than 500 mg/dL Very high Standard traceable to the Center for Disease Conrtrol and Prevention (CDC) test method. Performed By: #### L YTES, LIPID, CBC, BUN, PP, CREAT ####[facility] [id number] [address] VLDL CHOLESTEROL 27 mg/dL Normal [facility] Comment on above: Performed By: #### L YTES, LIPID, CBC, BUN, PP, CREAT ####[facility] [id number] [address] Lymphocytes [#/volume] in Bl ood by Automated countOrdered By: Haresh Middleton on 07-06-2023 Lymphocytes (Bld) [#/Vol] 2.3 10*3/uL Normal 1.00-4.8 [facility] Comment on above: Performed By: #### L YTES, LIPID, CBC, BUN, PP, CREAT #### [facility] [address] [place] [address] [place] Lymphocytes/100 leukocytes i n Blood by Automated countOrdered By: Haresh Middleton on 07-06-2023 Lymphocytes/100 WBC (Bld) 28.1 % Normal . [facility] Comment on above: Performed By: #### L YTES, LIPID, CBC, BUN, PP, CREAT #### [facility] [address] [place] [address] [place] MCH [Entitic mass] by Automa ifrah countOrdered By: Haresh Middleton on 07-06-2023 MCH (RBC) [Entitic mass] 30.6 pg Normal 24.7-34.3 [facility] Comment on above: Performed By: #### L YTES, LIPID, CBC, BUN, PP, CREAT #### [facility] [address] [place] [address] MCHC Auto (RBC) [Mass/Vol]Or dered By: Haresh Middleton on 07-06-2023 MCHC (RBC) [Mass/Vol] 34.0 g/dL 32.0-35.0 [facility] MCV [Entitic volume] by Auto mated countOrdered By: Haresh Middleton on 07-06-2023 MCV (RBC) [Entitic vol] 89.9 fL Normal 80-100 [facility] Comment on above: Performed By: #### L YTES, LIPID, CBC, BUN, PP, CREAT #### [facility] [address] [place] [address] Neutrophils [#/volume] in Bl ood by Automated countOrdered By: Haresh Middleton on 07-06-2023 Neutrophils (Bld) [#/Vol] 4.8 10*3/uL Normal 1.8-7.7 [facility] Comment on above: Performed By: #### L YTES, LIPID, CBC, BUN, PP, CREAT #### [facility] [address] [place] [address] No Panel InformationOrdered By: Haresh Middleton on 07-06-2023 Estimated GFR (CKD-EPI) > 60.0 mL/Min [facility] Creatinine Clearance (Chem N/A [facility] Nucleated erythrocytes [Pres ence] in Blood by Automated countOrdered By: Haresh Middleton on 07-06-2023 Nucleated RBC Auto Ql (Bld) 0.1 /100{WBC} 0-0.5 [facility] Platelet mean volume [Entiti c volume] in Blood by Automated countOrdered By: Haresh Middleton on 07-06-2023 Platelet mean volume (Bld) [Entitic vol] 7.8 fL Normal 6.3-10.7 [facility] Comment on above: Performed By: #### L YTES, LIPID, CBC, BUN, PP, CREAT #### [facility] [address] Platelets [#/volume] in Bloo d by Automated countOrdered By: Haresh Middleton on 07-06-2023 Platelets (Bld) [#/Vol] 224 10*3/uL Normal 150-450 [facility] Comment on above: Performed By: #### L YTES, LIPID, CBC, BUN, PP, CREAT #### [address] Potassium [Moles/volume] in Serum or PlasmaOrdered By: Haresh Middleton on 07-06-2023 Potassium [Moles/Vol] 4.3 mmol/L Normal 3.5-5.1 [facility] Comment on above: Performed By: #### L YTES, LIPID, CBC, BUN, PP, CREAT #### [address] Prothrombin time (PT)Ordered By: Haresh Middleton on 07-06-2023 PT Coag (PPP) [Time] 11.3 s Normal 9.0-12.9 [facility] Comment on above: A hematocrit value g reater than 55% may lead to inaccurate results in coagulation testing. Patients having hematocrit values >55% require a special collection tube for coagulation studies. Please contact the laboratory at [phone] for redraw instructions. Result Comment: A he matocrit value greater than 55% may lead to inaccurate results in coagulation testing. Patients having hematocrit values >55% require a special collection tube for coagulation studies. Please contact the laboratory at [phone] for redraw instructions. Performed By: #### L YTES, LIPID, CBC, BUN, PP, CREAT #### [address] Serum or plasma anion gap de terminationOrdered By: Haresh Middleton on 07-06-2023 Anion gap [Moles/Vol] 12.1 mmol/L Normal 6.0-15.0 [facility] Comment on above: Performed By: #### L YTES, LIPID, CBC, BUN, PP, CREAT #### [address] [place] [address] [place] Serum or plasma high density lipoprotein (HDL) cholesterol measurementOrdered By: Haresh Middleton on 07-06-2023 Cholesterol in HDL [Mass/Vol] 31 mg/dL Normal 23-92 [facility] Comment on above: HDL CHOL ATP-III CLA SSIFICATION Cardiovascular RiskHDL > or equal to 60 mg/dL LOWHDL < 40 mg/dL HIGH Result Comment: HDL CHOL ATP-III CLASSIFICATION Cardiovascular Risk HDL > or equal to 60 mg/dL LOW HDL < 40 mg/dL HIGH Performed By: #### L YTES, LIPID, CBC, BUN, PP, CREAT ####[place] [id number] Serum or plasma total choles terol/high density lipoprotein (HDL) cholesterol mass ratOrdered By: Haresh Middleton on 07-06-2023 Cholesterol.total/Cho lesterol in HDL [Mass ratio] 4.3 {ratio} Normal <5.0 [facility] Comment on above: Result Comment: PERF ORMED BY: [facility] [address] [place] [address] PATHOLOGIST VOCATIONAL TECHNICAL EDUCATION TEACHER NHI ARNOLD M.D. Performed By: #### L YTES, LIPID, CBC, BUN, PP, CREAT ####[facility] [id number] [address] Sodium [Moles/volume] in Ser um or PlasmaOrdered By: Haresh Middleton on 07-06-2023 Sodium [Moles/Vol] 139 mmol/L Normal 136-145 [facility] Comment on above: Performed By: #### L YTES, LIPID, CBC, BUN, PP, CREAT #### [facility] [address] Triglyceride [Mass/volume] i n Serum or PlasmaOrdered By: Haresh Middleton on 07-06-2023 Triglyceride [Mass/Vol] 138 mg/dL 0-149 [facility] Comment on above: TRIG ATP III CLASSIF ICATIONTRIG less than 150 mg/dL NormalTRIG 150-199 mg/dL Borderline highTRIG 200-500 mg/dL High TRIG greater than 500 mg/dL Very highStandard traceable to the Center for Disease Conrtrol and Prevention (CDC) test method. Urea nitrogen [Mass/volume] in Serum or PlasmaOrdered By: Haresh Middleton on 07-06-2023 Urea nitrogen [Mass/Vol] 14 mg/dL Normal 7-25 [facility] Comment on above: Performed By: #### L YTES, LIPID, CBC, BUN, PP, CREAT #### [facility] [address] NM talha perf SPECT rest stron 06-21-2023 NM talha perf SPECT rest str [facility] [address] [place] [address] [place] [address] Nuclear Medicine Report Signed Patient: Jeannette Hurtado MR#: [id number] : 1965 Acct:[id number] Age/Sex: 57 / F ADM Date: 06/17/23 Loc: Room: Type: [facility] Attending Dr: Haresh Middleton MD Copies to: MD Wander Montiel MD Ordering Provider: Haresh Middleton MD Date of Service: 06/17/23 NM/NM talha perf SPECT rest str: CP REFERRING PHYSICIAN: Dr. Middleton REASON FOR STUDY: Chest pain. PROCEDURE: The patient underwent 2-day rest/stress protocol. Rest images obtained by injecting 28.1 mCi of Cardiolite. Stress images obtained by injecting 29.1 mCi of Cardiolite. Subsequently, gated SPECT and ejection fraction studies were performed. IMAGING RESULT: This appears to be a fair study. There is a very subtle and very small, mildly reversible distal anterior wall defect, suspicious of very small area of distal anterior wall ischemia. Left ventricular ejection fraction appears normal, calculated at 70%. TID index normal at 0.96. CONCLUSION: 1. Probable very small area of mild distal anterior wall ischemia. 2. No prior myocardial infarction. 3. Normal left ventricular systolic function and wall motion with calculated ejection fraction of 70%. 4. No previous study available for comparison. Transcribed By: ОЛЬГА 06/22/23 0663 Dictated By: Wander Sam MD 06/21/23 1911 Signed By: 06/22/23 1727 Normal [facility] echo transthoracicon [facility] echo transthoracic [facility] [address] [place] [address] [place] [address] Echocardiogram Signed Patient: Jeannette Hurtado MR#: [id number] : 1965 Acct:[id number] Age/Sex: 57 / F ADM Date: 05/13/23 Loc: Room: Type: [facility] Attending Dr: Haresh Middleton MD Ordering Provider: Haresh Middleton MD Date of Service: 05/13/23 [facility] echo transthoracic: Palpitations Copies to: MD Maldonado Montiel MD Weight: 210 lb Performed By: Nela Chowdhury RDCS BSA: 2.0 m2 BP: 161/87 mmHg Reason For Study: Palpitations History: palpitations, pre-DM, paternal hx CABG Interpretation Summary Ejection Fraction = 60-65%. There is essentric left ventricular hypertrophy. A variety of Doppler measurements indicate pseudonormalized left ventricular relaxation, which is associated with grade II/IV or mild to moderate diastolic dysfunction. The left ventricular wall motion is normal. There is no comparison study available. Procedure/Quality: A two-dimensional transthoracic echocardiogram with color flow and Doppler was performed. Left Ventricle: There is essentric left ventricular hypertrophy. Left ventricular systolic function is normal. Ejection Fraction = 60-65%. A variety of Doppler measurements indicate pseudonormalized left ventricular relaxation, which is associated with grade II/IV or mild to moderate diastolic dysfunction. The left ventricular wall motion is normal. Left Atrium: The left atrium appears normal in size. The atrial septum appears normal. Right Atrium: The right atrium appears normal in size. Right Ventricle: The right ventricular size, thickness and function are normal. Aortic Valve: The aortic valve is normal in structure and function. No hemodynamically significant valvular aortic stenosis. No aortic regurgitation is present. Mitral Valve: The mitral valve leaflets appear normal. There is no evidence of stenosis, fluttering, or prolapse. Tricuspid Valve: The tricuspid valve is normal in structure and function. Doppler findings do not suggest pulmonary hypertension. Arteries: The aortic root is normal size. The aortic arch was visualized and no abnormalities were seen. No obvious aortic dissection could be visualized. Pericardium/Pleura: No pericardial effusion seen. There is no pleural effusion. IVC/Hepatic Viens: The inferior vena cava is normal in size, with a normal collapsibility index. Measurements with Normals IVSd: 1.4 cm (0.7-1.1 cm)LVIDd: 4.3 cm (3.7-5.4 cm) LVPWd: 1.1 cm (0.7-1.1 cm)LVIDs: 3.0 cm (2.3-3.6 cm) LA dimension: 4.1 cm (2.3-4.0 cm)Ao root diam: 2.6 cm(2.0-3.6 cm) asc Aorta Diam: 2.6 cm(2.1-3.4cm) Doppler with Normals LV V1 max: 116.7 cm/sec (0.7-1.7m/s)MV E max abdi: 101.0 cm/sec(0.8-1.3m/s) MV A max abdi: 83.7 cm/sec(0.0-0.0m/s) MV E/A: 1.2 (<1.5) MMode/2D Measurements Calculations RVDd: 3.1 cm FS: 29.8 % Ao root area: LVOT diam: 2.0 cm TAPSE: 2.2 cm EDV(Teich): 5.5 cm2 LVOT area: 3.2 cm2 RV S Abdi: 81.5 ml 14.4 cm/sec ESV(Teich): 34.8 ml EF(Teich): 57.3 % __ LVLd ap4: 7.7 cm SV(MOD-sp4): LAV(MOD-sp4): LA A2 area: 19.2 cm2 EDV(MOD-sp4): 51.8 ml 45.9 ml 73.6 ml LAV(MOD-sp2): LA A4 area: 17.3 cm2 LVLs ap4: 6.8 cm 54.4 ml LA length (vol): ESV(MOD-sp4): 5.2 cm 21.8 ml LA vol: 53.9 ml EF(MOD-sp4): 70.4 % LA vol index: 26.4 ml/m2 Doppler Measurements Calculations MV dec time: E/E' lat: 10.7 MV dec slope: Ao V2 max: 0.20 sec E/E' med: 13.5 134.4 cm/sec 508.1 cm/sec2 Ao max P.2 mmHg Ao mean P.5 mmHg Ao V2 mean: 87.3 cm/sec Ao V2 VTI: 27.9 cm SOFIA(I,D): 3.0 cm2 SOFIA(V,D): 2.8 cm2 __ LV V1 max PG: RAP systole: 5.5 mmHg 3.0 mmHg LV V1 mean P.8 mmHg LV V1 mean: 78.6 cm/sec LV V1 VTI: 26.2 cm Transcribed By: LINDSEY Performed At: 05/13/23 0850 Signed By: Maldonado Raza MD 05/13/23 1312 Normal [facility] Thyrotropin [Units/volume] i n Serum or PlasmaOrdered By: Haresh Middleton on 05-13-2023 TSH Qn 4.12 m[IU]/L Normal 0.45-5.33 [facility] Comment on above: Order Comment: Reaso n for Exam Chronic fatigue disorder Result Comment: PERF ORMED BY: [facility] [address] [place] [address] PATHOLOGIST VOCATIONAL TECHNICAL EDUCATION TEACHER NHI ARNOLD M.D. Performed By: #### T 4F, TSH3 ####[facility] [id number] [place] [address] [facility] Thyroxine (T4) free [Mass/vo lume] in Serum or PlasmaOrdered By: Haresh Middleton on 05-13-2023 Free T4 [Mass/Vol] 0.79 ng/dL Normal 0.61-1.12 [facility] Comment on above: Order Comment: Reaso n for Exam Chronic fatigue disorder Performed By: #### T 4F, TSH3 ####[facility] [id number] [place] [address] [facility] CBC W Auto Differential pane l (Bld)on 04-04-2023 Basophils (Bld) [#/Vol] 0.07 10*3/uL Normal <0.11 [facility] Comment on above: Order Comment: Speci men Type: BLOOD SPECIMENOrdering Facility: [facility] Address: [address] [place] [address] Performed By: #### 5 7021-8 ####[facility] LABCLIA [id number] [place] [address] Basophils/100 WBC (Bld) 0.8 % Normal [facility] Comment on above: Order Comment: Speci men Type: BLOOD SPECIMENOrdering Facility: [facility] Address: [address] [place] [address] Performed By: #### 5 7021-8 ####[facility] LABCL[facility] [id number] [place] [address] Differential cell count method Nom (Bld) Auto Normal [facility] Comment on above: Order Comment: Speci men Type: BLOOD SPECIMENOrdering Facility: [facility] Address: [address] [place] [address] Performed By: #### 5 7021-8 ####[facility] LABCLIA [id number] [place] [address] Eosinophils (Bld) [#/Vol] 0.21 10*3/uL Normal <0.46 [facility] Comment on above: Order Comment: Speci men Type: BLOOD SPECIMENOrdering Facility: [facility] Address: [address] [place] [address] Performed By: #### 5 7021-8 ####[facility] LABCLIA [id number] [place] [address] Eosinophils/100 WBC (Bld) 2.5 % Normal [facility] Comment on above: Order Comment: Speci men Type: BLOOD SPECIMENOrdering Facility: [facility] Address: [address] [place] [address] Performed By: #### 5 7021-8 ####[facility] LABCLIA [id number] [place] [address] Erythrocyte distribution width (RBC) [Ratio] 16.9 % High 11.5-15.0 [facility] Comment on above: Order Comment: Speci men Type: BLOOD SPECIMENOrdering Facility: [facility] Address: [address] [place] [address] Performed By: #### 5 7021-8 ####[facility] LABCLIA [id number] [place] [address] Hematocrit (Bld) [Volume fraction] 40.8 % Normal 36.0-46.0 [facility] Comment on above: Order Comment: Speci men Type: BLOOD SPECIMENOrdering Facility: [facility] Address: [address] [place] [address] Performed By: #### 5 7021-8 ####[facility] LABCLIA [id number] [place] [address] Hemoglobin (Bld) [Mass/Vol] 12.9 g/dL Normal 11.5-15.5 [facility] Comment on above: Order Comment: Speci men Type: BLOOD SPECIMENOrdering Facility: [facility] Address: [address] [place] [address] Performed By: #### 5 7021-8 ####[facility] LABCLIA [id number] [place] [address] Immature granulocytes (Bld) [#/Vol] 10*3/uL Normal <0.10 [facility] Comment on above: Order Comment: Speci men Type: BLOOD SPECIMENOrdering Facility: [facility] Address: [address] [place] [address] Performed By: #### 5 7021-8 ####[facility] LABCLIA [id number] [place] [address] Immature granulocytes/100 WBC (Bld) 0.2 % Normal [facility] Comment on above: Order Comment: Speci men Type: BLOOD SPECIMENOrdering Facility: [facility] Address: [address] [place] [address] Performed By: #### 5 7021-8 ####[facility] LABCLIA [id number] [place] [address] Lymphocytes (Bld) [#/Vol] 2.68 10*3/uL Normal 1.00-4.00 [facility] Comment on above: Order Comment: Speci men Type: BLOOD SPECIMENOrdering Facility: [facility] Address: [address] [place] [address] Performed By: #### 5 7021-8 ####[facility] LABCLIA [id number] [place] [address] Lymphocytes/100 WBC (Bld) 31.4 % Normal [facility] Comment on above: Order Comment: Speci men Type: BLOOD SPECIMENOrdering Facility: [facility] Address: [address] [place] [address] Performed By: #### 5 7021-8 ####[facility] LABCLIA [id number] [place] [address] MCH (RBC) [Entitic mass] 27.5 pg Normal 26.0-34.0 [facility] Comment on above: Order Comment: Speci men Type: BLOOD SPECIMENOrdering Facility: [facility] Address: [address] [place] [address] Performed By: #### 5 7021-8 ####[facility] LABCLIA [id number] [place] [address] MCHC (RBC) [Mass/Vol] 31.6 g/dL Normal 30.5-36.0 [facility] Comment on above: Order Comment: Speci men Type: BLOOD SPECIMENOrdering Facility: [facility] Address: [address] [place] [address] Performed By: #### 5 7021-8 ####[facility] LABCLIA [id number] [place] [address] MCV (RBC) [Entitic vol] 87.0 fL Normal 80.0-100.0 [facility] Comment on above: Order Comment: Speci men Type: BLOOD SPECIMENOrdering Facility: [facility] Address: [address] [place] [address] Performed By: #### 5 7021-8 ####[facility] LABCLIA [id number] [place] [address] Monocytes (Bld) [#/Vol] 0.77 10*3/uL Normal <0.87 [facility] Comment on above: Order Comment: Speci men Type: BLOOD SPECIMENOrdering Facility: [facility] Address: [address] [place] [address] Performed By: #### 5 7021-8 ####[facility] LABCLIA [id number] [place] [address] Monocytes/100 WBC (Bld) 9.0 % Normal [facility] Comment on above: Order Comment: Speci men Type: BLOOD SPECIMENOrdering Facility: [facility] Address: [address] [place] [address] Performed By: #### 5 7021-8 ####[facility] LABCLIA [id number] [place] [address] Neutrophils (Bld) [#/Vol] 4.78 10*3/uL Normal 1.45-7.50 [facility] Comment on above: Order Comment: Speci men Type: BLOOD SPECIMENOrdering Facility: [facility] Address: [address] [place] [address] Performed By: #### 5 7021-8 ####[facility] LABCLIA [id number] [place] [address] Neutrophils/100 WBC (Bld) 56.1 % Normal [facility] Comment on above: Order Comment: Speci men Type: BLOOD SPECIMENOrdering Facility: [facility] Address: [address] [place] [address] Performed By: #### 5 7021-8 ####[facility] LABCLIA [id number] [place] [address] Nucleated RBC (Bld) [#/Vol] 10*3/uL Normal <0.01 [facility] Comment on above: Order Comment: Speci men Type: BLOOD SPECIMENOrdering Facility: [facility] Address: [address] [place] [address] Performed By: #### 5 7021-8 ####[facility] LABCLIA [id number] [place] [address] Nucleated RBC/100 WBC (Bld) [Ratio] 0.0 /100 WBC Normal [facility] Comment on above: Order Comment: Speci men Type: BLOOD SPECIMENOrdering Facility: [facility] Address: [address] [place] [address] Performed By: #### 5 7021-8 ####[facility] LABCLIA [id number] [place] [address] Platelet mean volume (Bld) [Entitic vol] 9.5 fL Normal 9.0-12.7 [facility] Comment on above: Order Comment: Speci men Type: BLOOD SPECIMENOrdering Facility: [facility] Address: [address] [place] [address] Performed By: #### 5 7021-8 ####[facility] LABCLIA [id number] [place] [address] Platelets (Bld) [#/Vol] 240 10*3/uL Normal 150-400 [facility] Comment on above: Order Comment: Speci men Type: BLOOD SPECIMENOrdering Facility: [facility] Address: [address] [place] [address] Performed By: #### 5 7021-8 ####[facility] LABCLIA [id number] [place] [address] RBC (Bld) [#/Vol] 4.69 10*6/uL Normal 3.90-5.20 [facility] Comment on above: Order Comment: Speci men Type: BLOOD SPECIMENOrdering Facility: [facility] Address: [place] [id number] Performed By: #### 5 7021-8 ####[facility] LABCLIA [id number] [place] [address] WBC (Bld) [#/Vol] 8.53 10*3/uL Normal 3.70-11.00 [facility] Comment on above: Order Comment: Speci men Type: BLOOD SPECIMENOrdering Facility: [facility] Address: [place] [id number] Performed By: #### 5 7021-8 ####[facility] LABCLIA [id number] [place] [address] CNOVSPon 04-04-2023 CNOVSP Visit (SP) Office ( [facility]) JEANNETTE HURTADO ([id number]) 1965 F Date Time Provider Department 04/04/23 1:00 PM RUBEN WIGGINS During your visit today, we recorded the following information about you: Temperature Pulse Respiration Blood pressure 97.6 degrees 58/minute 16/minute 162/66 Weight Height 93 kg 1.676 m Ruben Wiggins APRN.SOLUTION ANALYST 04/04/2023 1:51 PM Signed NAME: Jeannette Hurtado CLINIC NO.: [id number] DATE OF SERVICE: April 04, 2023 ([place]) Some elements in this clinic note that are critical to medical decision making have been carefully reviewed and included from a prior clinic note dated: February 07, 2023. (Dr. Rose) Referring Provider: Dr. Klaudia Gomez Additional Clinicians involved in Jeannette Hurtado's care: DIAGNOSIS: Anemia, fatigue ASSESSMENT: 57 year old woman with anemia and associated fatigue. She has obstructive sleep apnea but is compliant with CPAP. PLAN: Follow up in 3 months with labs same day. Possible IV Venofer. - HPI: CASE HISTORY: Reverse Chronological Order 01/05/2023 CBC 9.2 > 11.2/35.6 < 277 11/12/2022 colonoscopy is negative. Recommended colonoscopy 10 years. Updated Visit, April 04, 2023: 02/14/2023 Patient called in stating that after taking the oral iron for 1 week she was having nausea, vomiting x1 and diarrhea. Patient stopped medication. Her next appointment was for labs only to see how the oral was working, followed by a virtual visit. Would you like her switched to a regular visit to discuss IV iron? Mechelle Gomez RN eJannette Hurtado returns for scheduled follow-up. She received IV Venofer 300 mg on 02/21/2023, 02/28/2023 and 03/07/2023. She tolerated the IV iron infusions well. She states that her fatigue is only slightly improved. The brain fog is not much better. She remains off of oral iron. She denies any bleeding or abnormal bruising. Updated Visit, February 07, 2023: Iron deficiency identified.will trial oral iron and see if it helpd otherwise iv iron. Very fatigued. Reviewed all laboratories with her. Would consider IV iron therapy. Initial Visit, January 26, 2023: Jeannette Hurtado presents today Hematology and Oncology evaluation. She is a 57 year old female who presents on consultation for anemia. Hemoglobin in August 2022 was 11 but she presents with progressive fatigue even though she is compliant with CPAP. While anemia is mild and seem to have progressed and worsened. I reviewed outside laboratories but I do not have access to iron studies or ferritin. - REVIEW OF SYSTEMS Per HPI and otherwise negative by full review of organ systems. - ECOG PERFORMANCE STATUS: 1 PHYSICAL EXAMINATION: Vitals: BP 162/66 Pulse 58 Temp (Src) 97.6 (Temporal) Resp 16 Ht 5' 5.984 (1.68m) Wt 205 lb (93.0kg) SpO2 97% BMI 33.10 kg/(m2). Body surface area is 2.08 meters squared. Exam limited to gross visualization where appropriate. Gen.: This is an age-appropriate patient in no acute distress. Head: Appears atraumatic with no visible lesions. Eyes: Pupils equally round and reactive to light, extraocular muscles are intact. Neck: Supple. Respiratory: Appears to be respiring comfortably. Neurologic: Nonfocal to gross visualization. Alert and oriented ?3. Psychiatric: No evidence of inappropriate anxiety or depression. Skin: Visible areas of skin without rash, lesions, wounds or petechiae. - ALLERGIES: ALLERGIES Allergen Reactions Compazine [Prochlor* Latex Unknown MEDICATIONS: B-complex with vitamin C (VITAMIN B COMPLEX-C ORAL) Take by mouth. ascorbic acid (VITAMIN C ORAL) Take by mouth. sertraline (ZOLOFT) 25 mg tablet Take 25 mg by mouth once daily. esomeprazole (NEXIUM) 20 mg capsule Take 20 mg by mouth once daily. metFORMIN (GLUCOPHAGE) 1,000 mg tablet Take 1,000 mg by mouth twice daily with meals. albuterol HFA (PROVENTIL HFA) inhaler Inhale 2 Puffs as instructed every 6 hours as needed for wheezing/shortness of breath. - LABORATORY VALUES: WBC (k/uL) Date Value 04/04/2023 8.53 RBC (m/uL) Date Value 04/04/2023 4.69 Hemoglobin (g/dL) Date Value 04/04/2023 12.9 Hematocrit (%) Date Value 04/04/2023 40.8 MCV (fL) Date Value 04/04/2023 87.0 MCH (pg) Date Value 04/04/2023 27.5 MCHC (g/dL) Date Value 04/04/2023 31.6 RDW-CV (%) Date Value 04/04/2023 16.9 (H) Platelet Count (k/uL) Date (more content not included)... Normal [facility] Comprehensive metabolic 2000 panelon 04-04-2023 Albumin [Mass/Vol] 4.9 g/dL Normal 3.9-4.9 [facility] Comment on above: Order Comment: Speci men Type: BLOOD SPECIMENOrdering Facility: [facility] Address: [address] [place] [address] Performed By: #### 2 4323-8 ####[facility] LABCLIA [id number] [place] [address] ALP [Catalytic activity/Vol] 117 U/L Normal 34-123 [facility] Comment on above: Order Comment: Speci men Type: BLOOD SPECIMENOrdering Facility: [facility] Address: [address] [place] [address] Performed By: #### 2 4323-8 ####[facility] LABCLIA [id number] [place] [address] ALT [Catalytic activity/Vol] 54 U/L High 7-38 [facility] Comment on above: Order Comment: Speci men Type: BLOOD SPECIMENOrdering Facility: [facility] Address: [address] [place] [address] Performed By: #### 2 4323-8 ####[facility] LABCLIA [id number] [place] [address] Anion gap [Moles/Vol] 12 mmol/L Normal 9-18 [facility] Comment on above: Order Comment: Speci men Type: BLOOD SPECIMENOrdering Facility: [facility] Address: [address] [place] [address] Performed By: #### 2 4323-8 ####[facility] LABCLIA [id number] [place] [address] AST [Catalytic activity/Vol] 60 U/L High 13-35 [facility] Comment on above: Order Comment: Speci men Type: BLOOD SPECIMENOrdering Facility: [facility] Address: [address] [place] [address] Performed By: #### 2 4323-8 ####[facility] LABCLIA [id number] [place] [address] Bilirubin [Mass/Vol] 0.3 mg/dL Normal 0.2-1.3 [facility] Comment on above: Order Comment: Speci men Type: BLOOD SPECIMENOrdering Facility: [facility] Address: [address] [place] [address] Performed By: #### 2 4323-8 ####[facility] LABCLIA [id number] [place] [address] Calcium [Mass/Vol] 10.5 mg/dL High 8.5-10.2 [facility] Comment on above: Order Comment: Speci men Type: BLOOD SPECIMENOrdering Facility: [facility] Address: [address] [place] [address] Performed By: #### 2 4323-8 ####[facility] LABCLIA [id number] [place] [address] Chloride [Moles/Vol] 99 mmol/L Normal 97-105 [facility] Comment on above: Order Comment: Speci men Type: BLOOD SPECIMENOrdering Facility: [facility] Address: [address] [place] [address] Performed By: #### 2 4323-8 ####[facility] LABCLIA [id number] [place] [address] CO2 [Moles/Vol] 28 mmol/L Normal 22-30 [facility] Comment on above: Order Comment: Speci men Type: BLOOD SPECIMENOrdering Facility: [facility] Address: [address] [place] [address] Performed By: #### 2 4323-8 ####[facility] LABCLIA [id number] [place] [address] Creatinine [Mass/Vol] 0.75 mg/dL Normal 0.58-0.96 [facility] Comment on above: Order Comment: Speci men Type: BLOOD SPECIMENOrdering Facility: [facility] Address: [address] [place] [address] Performed By: #### 2 4323-8 ####[facility] LABCLIA [id number] [place] [address] Creatinine and Glomerular filtration rate.predicted panel (S/P/Bld) 92 mL/min/1.73m??? Normal >=60 [facility] Comment on above: Order Comment: Speci men Type: BLOOD SPECIMENOrdering Facility: [facility] Address: [address] [place] [address] Result Comment: Michaela mated Glomerular Filtration Rate (eGFR) is calculated using the 2020 CKD-EPI creatinine equation. This equation utilizes serum creatinine, sex, and age as parameters. The creatinine assay has traceable calibration to isotope dilution-mass spectrometry. Refer to KDIGO guidelines for clinical interpretation. In patients with unstable renal function, e.g. those with acute kidney injury, the eGFR may not accurately reflect actual GFR. Performed By: #### 2 4323-8 ####[facility] LABCLIA [id number] [place] [address] Glucose [Mass/Vol] 83 mg/dL Normal 74-99 [facility] Comment on above: Order Comment: Joselyn forrest Type: BLOOD SPECIMENOrdering Facility: [facility] Address: [address] [place] [address] Result Comment: The [place] Diabetes [employer] (ADA) provides guidance for cutoff values for fasting glucose and random glucose. The ADA defines fasting as no caloric intake for at least 8 hours. Fasting plasma glucose results between 100 to 125 mg/dL indicate increased risk for diabetes (prediabetes). Fasting plasma glucose results greater than or equal to 126 mg/dL meet the criteria for diagnosis of diabetes. In the absence of unequivocal hyperglycemia, results should be confirmed by repeat testing. In a patient with classic symptoms of hyperglycemia or hyperglycemic crisis, random plasma glucose results greater than or equal to 200 mg/dL meet the criteria for diagnosis of diabetes. Reference: Standards of Medical Care in Diabetes 2016, [place] [employer]. Diabetes Care. 2016.39(Suppl 1). Performed By: #### 2 4323-8 ####[facility] LABCLIA [id number] [place] [address] Potassium [Moles/Vol] 4.1 mmol/L Normal 3.7-5.1 [facility] Comment on above: Order Comment: Joselyn forrest Type: BLOOD SPECIMENOrdering Facility: [facility] Address: [address] [place] [address] Performed By: #### 2 4323-8 ####[facility] LABCLIA [id number] [place] [address] Protein [Mass/Vol] 7.8 g/dL Normal 6.3-8.0 [facility] Comment on above: Order Comment: Speci men Type: BLOOD SPECIMENOrdering Facility: [facility] Address: [address] [place] [address] Performed By: #### 2 4323-8 ####[facility] LABCLIA [id number] [place] [address] Sodium [Moles/Vol] 139 mmol/L Normal 136-144 [facility] Comment on above: Order Comment: Speci men Type: BLOOD SPECIMENOrdering Facility: [facility] Address: [address] [place] [address] Performed By: #### 2 4323-8 ####[facility] LABCLIA [id number] [place] [address] Urea nitrogen [Mass/Vol] 18 mg/dL Normal 7-21 [facility] Comment on above: Order Comment: Speci men Type: BLOOD SPECIMENOrdering Facility: [facility] Address: [address] [place] [address] Performed By: #### 2 4323-8 ####[facility] LABCLIA [id number] [place] [address] Ferritin SerPl-mCncon 2022 Ferritin [Mass/Vol] 312.0 ng/mL High 14.7-205.1 [facility] Comment on above: Order Comment: Speci men Type: BLOOD SPECIMENOrdering Facility: [facility] Address: [address] [place] [address] Performed By: #### 5 0190-8, 2276-4, 2284-8, 2132-9 ####[facility] LABCLIA [id number] [place] [address] [place] Folate SerPl-mCncon 04-04-20 Folate [Mass/Vol] 11.3 ng/mL Normal >4.7 [facility] Comment on above: Order Comment: Speci men Type: BLOOD SPECIMENOrdering Facility: [facility] Address: [address] [place] [address] Performed By: #### 5 0190-8, 2276-4, 2283-8, 9 ####[facility] LABCLIA [id number] [place] [id number] [place] Iron and Iron binding capaci ty panelon 04-04-2023 Iron [Mass/Vol] 88 ug/dL Normal 41-186 [facility] Comment on above: Order Comment: Speci men Type: BLOOD SPECIMENOrdering Facility: [facility] Address: [address] [place] [address] Performed By: #### 5 0190-8, 6-4, 8, 2132-01 ####[facility] LABIA [id number] [place] [address] [place] Iron binding capacity [Mass/Vol] 367 ug/dL Normal 232-386 [facility] Comment on above: Order Comment: Speci men Type: BLOOD SPECIMENOrdering Facility: [facility] Address: [address] [place] [address] Performed By: #### 5 0190-8, 6-4, 8, 2132-01 ####[facility] LABIA [id number] [place] [address] [place] Iron/TIBC [Molar ratio] 24.0 % Normal 15.0-57.0 [facility] Comment on above: Order Comment: Speci men Type: BLOOD SPECIMENOrdering Facility: [facility] Address: [address] [place], [place] [id number] Performed By: #### 5 0190-8, 2276-4, 2283-8, 2132-01 ####[facility] LABIA [id number] [place] [id number] [place] Vit [facility]12 [facility] Cobalamin (Vitamin B12) [Mass/Vol] 543 pg/mL Normal 232-1245 [facility] Comment on above: Order Comment: Speci men Type: BLOOD SPECIMENOrdering Facility: [facility] Address: [address] [place] [address] Performed By: #### 5 0190-8, 2276-4, 2284-8, 2132-9 ####[facility] LABCLIA [id number] [facility] [id number] [id number] [place] CBC W Auto Differential pane l (Bld)on 02-28-2023 Basophils (Bld) [#/Vol] 0.05 10*3/uL Normal <0.11 [facility] Comment on above: Order Comment: Speci men Type: BLOOD SPECIMENOrdering Facility: [facility] Address: [address] [place] [address] Performed By: #### 5 7021-8 ####[facility] LABCLIA [id number] [place] [address] Basophils/100 WBC (Bld) 0.6 % Normal [facility] Comment on above: Order Comment: Speci men Type: BLOOD SPECIMENOrdering Facility: [facility] Address: [address] [place] [address] Performed By: #### 5 7021-8 ####[facility] LABCLIA [id number] [place] [address] Differential cell count method Nom (Bld) Auto Normal [facility] Comment on above: Order Comment: Speci men Type: BLOOD SPECIMENOrdering Facility: [facility] Address: [address] [place] [address] Performed By: #### 5 7021-8 ####[facility] LABCLIA [id number] [place] [address] Eosinophils (Bld) [#/Vol] 0.31 10*3/uL Normal <0.46 [facility] Comment on above: Order Comment: Speci men Type: BLOOD SPECIMENOrdering Facility: [facility] Address: [address] [place] [address] Performed By: #### 5 7021-8 ####[facility] LABCLIA [id number] [place] [address] Eosinophils/100 WBC (Bld) 3.6 % Normal [facility] Comment on above: Order Comment: Speci men Type: BLOOD SPECIMENOrdering Facility: [facility] Address: [address] [place] [address] Performed By: #### 5 7021-8 ####[facility] LABCLIA [id number] [place] [address] Erythrocyte distribution width (RBC) [Ratio] 15.4 % High 11.5-15.0 [facility] Comment on above: Order Comment: Speci men Type: BLOOD SPECIMENOrdering Facility: [facility] Address: [address] [place] [address] Performed By: #### 5 7021-8 ####[facility] LABCLIA [id number] [place] [address] Hematocrit (Bld) [Volume fraction] 33.4 % Low 36.0-46.0 [facility] Comment on above: Order Comment: Speci men Type: BLOOD SPECIMENOrdering Facility: [facility] Address: [address] [place] [address] Performed By: #### 5 7021-8 ####[facility] LABCLIA [id number] [place] [address] Hemoglobin (Bld) [Mass/Vol] 10.5 g/dL Low 11.5-15.5 [facility] Comment on above: Order Comment: Speci men Type: BLOOD SPECIMENOrdering Facility: [facility] Address: [address] [place] [address] Performed By: #### 5 7021-8 ####[facility] LABCLIA [id number] [place] [address] Immature granulocytes (Bld) [#/Vol] 10*3/uL Normal <0.10 [facility] Comment on above: Order Comment: Speci men Type: BLOOD SPECIMENOrdering Facility: [facility] Address: [address] [place] [address] Performed By: #### 5 7021-8 ####[facility] LABCLIA [id number] [place] [address] Immature granulocytes/100 WBC (Bld) 0.2 % Normal [facility] Comment on above: Order Comment: Speci men Type: BLOOD SPECIMENOrdering Facility: [facility] Address: [address] [place] [address] Performed By: #### 5 7021-8 ####[facility] LABCLIA [id number] [place] [address] Lymphocytes (Bld) [#/Vol] 2.84 10*3/uL Normal 1.00-4.00 [facility] Comment on above: Order Comment: Speci men Type: BLOOD SPECIMENOrdering Facility: [facility] Address: [address] [place] [address] Performed By: #### 5 7021-8 ####[facility] LABCLIA [id number] [place] [address] Lymphocytes/100 WBC (Bld) 33.3 % Normal [facility] Comment on above: Order Comment: Speci men Type: BLOOD SPECIMENOrdering Facility: [facility] Address: [address] [place] [address] Performed By: #### 5 7021-8 ####[facility] LABCLIA [id number] [place] [address] MCH (RBC) [Entitic mass] 26.3 pg Normal 26.0-34.0 [facility] Comment on above: Order Comment: Speci men Type: BLOOD SPECIMENOrdering Facility: [facility] Address: [address] [place] [address] Performed By: #### 5 7021-8 ####[facility] LABCLIA [id number] [place] [address] MCHC (RBC) [Mass/Vol] 31.4 g/dL Normal 30.5-36.0 [facility] Comment on above: Order Comment: Speci men Type: BLOOD SPECIMENOrdering Facility: [facility] Address: [address] [place] [address] Performed By: #### 5 7021-8 ####[facility] LABCLIA [id number] [place] [address] MCV (RBC) [Entitic vol] 83.5 fL Normal 80.0-100.0 [facility] Comment on above: Order Comment: Speci men Type: BLOOD SPECIMENOrdering Facility: [facility] Address: [address] [place] [address] Performed By: #### 5 7021-8 ####[facility] LABCLIA [id number] [place] [address] Monocytes (Bld) [#/Vol] 0.62 10*3/uL Normal <0.87 [facility] Comment on above: Order Comment: Speci men Type: BLOOD SPECIMENOrdering Facility: [facility] Address: [address] [place] [address] Performed By: #### 5 7021-8 ####[facility] LABCLIA [id number] [place] [address] Monocytes/100 WBC (Bld) 7.3 % Normal [facility] Comment on above: Order Comment: Speci men Type: BLOOD SPECIMENOrdering Facility: [facility] Address: [address] [place] [address] Performed By: #### 5 7021-8 ####[facility] LABCLIA [id number] [place] [address] Neutrophils (Bld) [#/Vol] 4.68 10*3/uL Normal 1.45-7.50 [facility] Comment on above: Order Comment: Speci men Type: BLOOD SPECIMENOrdering Facility: [facility] Address: [address] [place] [address] Performed By: #### 5 7021-8 ####[facility] LABCLIA [id number] [place] [address] Neutrophils/100 WBC (Bld) 55.0 % Normal [facility] Comment on above: Order Comment: Speci men Type: BLOOD SPECIMENOrdering Facility: [facility] Address: [address] [place] [address] Performed By: #### 5 7021-8 ####[facility] LABCLIA [id number] [place] [address] Nucleated RBC (Bld) [#/Vol] 10*3/uL Normal <0.01 [facility] Comment on above: Order Comment: Speci men Type: BLOOD SPECIMENOrdering Facility: [facility] Address: [address] [place] [address] Performed By: #### 5 7021-8 ####[facility] LABIA [id number] [place] [address] Nucleated RBC/100 WBC (Bld) [Ratio] 0.0 /100 WBC Normal [facility] Comment on above: Order Comment: Speci men Type: BLOOD SPECIMENOrdering Facility: [facility] Address: [address] [place] [address] Performed By: #### 5 7021-8 ####[facility] LABIA [id number] [place] [address] Platelet mean volume (Bld) [Entitic vol] 9.9 fL Normal 9.0-12.7 [facility] Comment on above: Order Comment: Speci men Type: BLOOD SPECIMENOrdering Facility: [facility] Address: [address] [place] [address] Performed By: #### 5 7021-8 ####[facility] LABIA [id number] [place] [address] Platelets (Bld) [#/Vol] 251 10*3/uL Normal 150-400 [facility] Comment on above: Order Comment: Speci men Type: BLOOD SPECIMENOrdering Facility: [facility] Address: [address] [place] [address] Performed By: #### 5 7021-8 ####[facility] LABCLIA [id number] [place] [address] RBC (Bld) [#/Vol] 4.00 10*6/uL Normal 3.90-5.20 [facility] Comment on above: Order Comment: Speci men Type: BLOOD SPECIMENOrdering Facility: [facility] Address: [address] [place] [address] Performed By: #### 5 7021-8 ####[facility] LABCLIA [id number] [place] [address] WBC (Bld) [#/Vol] 8.52 10*3/uL Normal 3.70-11.00 [facility] Comment on above: Order Comment: Speci men Type: BLOOD SPECIMENOrdering Facility: [facility] Address: [address] [place] [address] Performed By: #### 5 7021-8 ####[facility] LABCLIA [id number] [place] [address] Comprehensive metabolic 2000 panelon 02-28-2023 Albumin [Mass/Vol] 4.6 g/dL Normal 3.9-4.9 [facility] Comment on above: Order Comment: Speci men Type: BLOOD SPECIMENOrdering Facility: [facility] Address: [address] [place] [address] Performed By: #### 2 4323-8 ####[facility] LABCLIA [id number] [place] [address] ALP [Catalytic activity/Vol] 103 U/L Normal 34-123 [facility] Comment on above: Order Comment: Speci men Type: BLOOD SPECIMENOrdering Facility: [facility] Address: [address] [place] [address] Performed By: #### 2 4323-8 ####[facility] LABCLIA [id number] [place] [address] ALT [Catalytic activity/Vol] 38 U/L Normal 7-38 [facility] Comment on above: Order Comment: Speci men Type: BLOOD SPECIMENOrdering Facility: [facility] Address: [address] [place] [address] Performed By: #### 2 4323-8 ####[facility] LABCLIA [id number] [place] [address] Anion gap [Moles/Vol] 11 mmol/L Normal 9-18 [facility] Comment on above: Order Comment: Speci men Type: BLOOD SPECIMENOrdering Facility: [facility] Address: [address] [place] [address] Performed By: #### 2 4323-8 ####[facility] LABCLIA [id number] [place] [address] AST [Catalytic activity/Vol] 59 U/L High 13-35 [facility] Comment on above: Order Comment: Speci men Type: BLOOD SPECIMENOrdering Facility: [facility] Address: [address] [place] [address] Performed By: #### 2 4323-8 ####[facility] LABCLIA [id number] [place] [address] Bilirubin [Mass/Vol] 0.2 mg/dL Normal 0.2-1.3 [facility] Comment on above: Order Comment: Speci men Type: BLOOD SPECIMENOrdering Facility: [facility] Address: [address] [place] [address] Performed By: #### 2 4323-8 ####[facility] LABCLIA [id number] [place] [address] Calcium [Mass/Vol] 9.9 mg/dL Normal 8.5-10.2 [facility] Comment on above: Order Comment: Speci men Type: BLOOD SPECIMENOrdering Facility: [facility] Address: [address] [place] [address] Performed By: #### 2 4323-8 ####[facility] LABCLIA [id number] [place] [address] Chloride [Moles/Vol] 100 mmol/L Normal 97-105 [facility] Comment on above: Order Comment: Speci men Type: BLOOD SPECIMENOrdering Facility: [facility] Address: [address] [place] [address] Performed By: #### 2 4323-8 ####[facility] LABCLIA [id number] [place] [address] CO2 [Moles/Vol] 24 mmol/L Normal 22-30 [facility] Comment on above: Order Comment: Speci men Type: BLOOD SPECIMENOrdering Facility: [facility] Address: [address] [place] [address] Performed By: #### 2 4323-8 ####[facility] LABCLIA [id number] [place] [address] Creatinine [Mass/Vol] 0.74 mg/dL Normal 0.58-0.96 [facility] Comment on above: Order Comment: Speci men Type: BLOOD SPECIMENOrdering Facility: [facility] Address: [address] [place] [address] Performed By: #### 2 4323-8 ####[facility] LABCLIA [id number] [place] [address] Creatinine and Glomerular filtration rate.predicted panel (S/P/Bld) 93 mL/min/1.73m??? Normal >=60 [facility] Comment on above: Order Comment: Speci men Type: BLOOD SPECIMENOrdering Facility: [facility] Address: [address] [place] [address] Result Comment: Michaela mated Glomerular Filtration Rate (eGFR) is calculated using the 2020 CKD-EPI creatinine equation. This equation utilizes serum creatinine, sex, and age as parameters. The creatinine assay has traceable calibration to isotope dilution-mass spectrometry. Refer to KDIGO guidelines for clinical interpretation. In patients with unstable renal function, e.g. those with acute kidney injury, the eGFR may not accurately reflect actual GFR. Performed By: #### 2 4323-8 ####[facility] LABCLIA [id number] [place] [address] Glucose [Mass/Vol] 162 mg/dL High 74-99 [facility] Comment on above: Order Comment: Speci men Type: BLOOD SPECIMENOrdering Facility: [facility] Address: [address] [place] [address] Result Comment: The [place] [employer] (ADA) provides guidance for cutoff values for fasting glucose and random glucose. The ADA defines fasting as no caloric intake for at least 8 hours. Fasting plasma glucose results between 100 to 125 mg/dL indicate increased risk for diabetes (prediabetes). Fasting plasma glucose results greater than or equal to 126 mg/dL meet the criteria for diagnosis of diabetes. In the absence of unequivocal hyperglycemia, results should be confirmed by repeat testing. In a patient with classic symptoms of hyperglycemia or hyperglycemic crisis, random plasma glucose results greater than or equal to 200 mg/dL meet the criteria for diagnosis of diabetes. Reference: Standards of Medical Care in Diabetes 2016, [place] [employer]. Diabetes Care. 2016.39(Suppl 1). Performed By: #### 2 4323-8 ####[facility] LABCLIA [id number] [place] [address] Potassium [Moles/Vol] 4.0 mmol/L Normal 3.7-5.1 [facility] Comment on above: Order Comment: Speci men Type: BLOOD SPECIMENOrdering Facility: [facility] Address: [address] [place] [address] Performed By: #### 2 4323-8 ####[facility] LABCLIA [id number] [place] [address] Protein [Mass/Vol] 7.2 g/dL Normal 6.3-8.0 [facility] Comment on above: Order Comment: Speci men Type: BLOOD SPECIMENOrdering Facility: [facility] Address: [address] [place], [place] [id number] Performed By: #### 2 4323-8 ####[facility] LABCLIA [id number] [place] [address] Sodium [Moles/Vol] 135 mmol/L Low 136-144 [facility] Comment on above: Order Comment: Speci men Type: BLOOD SPECIMENOrdering Facility: [facility] Address: [address] [place] [address] Performed By: #### 2 4323-8 ####[facility] LABCLIA [id number] [place] [address] Urea nitrogen [Mass/Vol] 16 mg/dL Normal 7-21 [facility] Comment on above: Order Comment: Speci men Type: BLOOD SPECIMENOrdering Facility: [facility] Address: [address] [place] [address] Performed By: #### 2 4323-8 ####[facility] LABCLIA [id number] [place] [address] Ferritin SerPl-mCncon 2022 Ferritin [Mass/Vol] 262.0 ng/mL High 14.7-205.1 [facility] Comment on above: Order Comment: Speci men Type: BLOOD SPECIMENOrdering Facility: [facility] Address: [address] [place] [address] Performed By: #### 2 284-8, 01860-4, 9, 2275-4 ####[facility] LABCLIA [id number] [place] [address] [place] Folate SerPl-mCncon 02-29-20 Folate [Mass/Vol] 16.3 ng/mL Normal >4.7 [facility] Comment on above: Order Comment: Speci men Type: BLOOD SPECIMENOrdering Facility: [facility] Address: [address] [place] [address] Performed By: #### 2 284-8, 28828-8, 2131-9, 2275-4 ####[facility] LABCLIA [id number] [place] [address] [place] Iron and Iron binding capaci ty panelon 02-28-2023 Iron [Mass/Vol] 60 ug/dL Normal 41-186 [facility] Comment on above: Order Comment: Speci men Type: BLOOD SPECIMENOrdering Facility: [facility] Address: [address] [place] [address] Performed By: #### 2 284-8, 06378-0, 2131-9, 2275-4 ####[facility] LABCLIA [id number] [place] [address] [place] Iron binding capacity [Mass/Vol] 379 ug/dL Normal 232-386 [facility] Comment on above: Order Comment: Speci men Type: BLOOD SPECIMENOrdering Facility: [facility] Address: [address] [place] [address] Performed By: #### 2 284-8, 13966-0, 9, 2275-4 ####[facility] LABCLIA [id number] [place] [address] [place] Iron/TIBC [Molar ratio] 15.8 % Normal 15.0-57.0 [facility] Comment on above: Order Comment: Speci men Type: BLOOD SPECIMENOrdering Facility: [facility] Address: [address] [place] [address] Performed By: #### 2 284-8, 17727-0, 9, 2275-4 ####[facility] LABCLIA [id number] [place] [address] [place] Vit B12 [facility]Pl[facility] 0[facility] Cobalamin (Vitamin B12) [Mass/Vol] 714 pg/mL Normal 232-1245 [facility] Comment on above: Order Comment: Speci men Type: BLOOD SPECIMENOrdering Facility: [facility] Address: [address] [place] [address] Performed By: #### 2 284-8, 13961-0, 2131-9, 2275-4 ####[facility] LABCLIA [id number] [place] [id number] [place] [facility] Kimberlee 02-21-2023 CNPN Telephone (HEMTSA) JEANNETTE HURTADO ([id number]) 1965 F Date Time Provider Department 02/21/23 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 FN not required at this time. Allergies As of Date: 02/21/2023 Noted Allergy Reaction COMPAZINE (PROCHLORPERAZINE EDISY*01/13/2005 LATEX 01/21/2023 16 - Unknown Date Reviewed: 02/07/2023 Reviewed by: Shyam August - Fully Assessed Reason for Visit: Benefits Investigation [4098] Prescriptions as of 02/21/2023 - B-complex with vitamin C (VITAMIN B COMPLEX-C ORAL) Take by mouth. - ascorbic acid (VITAMIN C ORAL) Take by mouth. - sertraline (ZOLOFT) 25 mg tablet Take 25 mg by mouth once daily. - esomeprazole (NEXIUM) 20 mg capsule Take 20 mg by mouth once daily. - metFORMIN (GLUCOPHAGE) 1,000 mg tablet Take 1,000 mg by mouth twice daily with meals. - albuterol HFA (PROVENTIL HFA) inhaler Inhale 2 Puffs as instructed every 6 hours as needed for wheezing/shortness of breath. 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] 01/13/2005 Iron deficiency anemia secondary to inadequate *02/07/2023 Encounter Status:Closed by SIMON MORALES on 02/21/23 Normal [facility] CBC W Auto Differential pane l (Bld)on 01-27-2023 Basophils (Bld) [#/Vol] 0.05 10*3/uL <0.11 k/uL [facility] Basophils/100 WBC (Bld) 0.7 % [facility] Differential cell count method Nom (Bld) Auto [facility] Eosinophils (Bld) [#/Vol] 0.32 10*3/uL <0.46 k/uL [facility] Eosinophils/100 WBC (Bld) 4.5 % [facility] Erythrocyte distribution width (RBC) [Ratio] 14.9 % 11.5 - 15.0 % [facility] Hematocrit (Bld) [Volume fraction] 34.4 % Low 36.0 - 46.0 % [facility] Hemoglobin (Bld) [Mass/Vol] 10.8 g/dL Low 11.5 - 15.5 g/dL [facility] Immature granulocytes (Bld) [#/Vol] <0.10 k/uL [facility] Immature granulocytes/100 WBC (Bld) 0.1 % [facility] Lymphocytes (Bld) [#/Vol] 2.09 10*3/uL 1.00 - 4.00 k/uL [facility] Lymphocytes/100 WBC (Bld) 29.7 % [facility] MCH (RBC) [Entitic mass] 26.3 pg 26.0 - 34.0 pg [facility] MCHC (RBC) [Mass/Vol] 31.4 g/dL 30.5 - 36.0 g/dL [facility] MCV (RBC) [Entitic vol] 83.9 fL 80.0 - 100.0 fL [facility] Monocytes (Bld) [#/Vol] 0.73 10*3/uL <0.87 k/uL [facility] Monocytes/100 WBC (Bld) 10.4 % [facility] Neutrophils (Bld) [#/Vol] 3.84 10*3/uL 1.45 - 7.50 k/uL [facility] Neutrophils/100 WBC (Bld) 54.6 % [facility] Nucleated RBC (Bld) [#/Vol] <0.01 k/uL [facility] Nucleated RBC/100 WBC (Bld) [Ratio] 0.0 /100 WBC [facility] Platelet mean volume (Bld) [Entitic vol] 9.8 fL 9.0 - 12.7 fL [facility] Platelets (Bld) [#/Vol] 203 10*3/uL 150 - 400 k/uL [facility] RBC (Bld) [#/Vol] 4.10 10*6/uL 3.90 - 5.20 m/uL [facility] WBC (Bld) [#/Vol] 7.04 10*3/uL 3.70 - 11.00 k/uL [facility] Comprehensive metabolic 2000 panelon 01-27-2023 Albumin [Mass/Vol] 4.4 g/dL 3.9 - 4.9 g/dL [facility] ALP [Catalytic activity/Vol] 104 U/L 34 - 123 U/L [facility] ALT [Catalytic activity/Vol] 39 U/L High 7 - 38 U/L [facility] Anion gap [Moles/Vol] 11 mmol/L 9 - 18 mmol/L [facility] AST [Catalytic activity/Vol] 46 U/L High 13 - 35 U/L [facility] Bilirubin [Mass/Vol] 0.2 mg/dL 0.2 - 1 .3 mg/dL [facility] Calcium [Mass/Vol] 9.5 mg/dL 8.5 - 10. 2 mg/dL [facility] Chloride [Moles/Vol] 102 mmol/L 97 - 10 5 mmol/L [facility] CO2 [Moles/Vol] 28 mmol/L 22 - 30 mmol/L [facility] Creatinine [Mass/Vol] 0.87 mg/dL 0.58 - 0.96 mg/dL [facility] Estimated Glomerular Filtration Rate 77 mL/min/1.73m >=60 mL/min/1.7 3m [facility] Glucose [Mass/Vol] 133 mg/dL High 74 - 99 mg/dL [facility] Potassium [Moles/Vol] 4.3 mmol/L 3.7 - 5.1 mmol/L [facility] Protein [Mass/Vol] 7.0 g/dL 6.3 - 8.0 g/dL [facility] Sodium [Moles/Vol] 141 mmol/L 136 - 144 mmol/L [facility] Urea nitrogen [Mass/Vol] 18 mg/dL 7 - 21 mg/dL [facility] FERRITIN BLDon 01-27-2023 Ferritin [Mass/Vol] 17.7 ng/mL 14.7 - 205.1 ng/mL [facility] FOLATE SERUMon 01-27-2023 Folate [Mass/Vol] 14.0 ng/mL >4.7 ng/mL [facility] Iron and Iron binding capaci ty panelon 01-27-2023 Iron [Mass/Vol] 31 ug/dL Low 41 - 186 ug/dL [facility] Iron binding capacity [Mass/Vol] 433 ug/dL High 232 - 386 ug/dL [facility] Iron/TIBC [Molar ratio] 7.2 % Low 15.0 - 57.0 % [facility] RETIC COUNTon 01-27-2023 Reticulocytes (Bld) [#/Vol] 0.61517 10*3/uL 0.018 - 0.100 M/uL [facility] Reticulocytes (Bld) [#/Vol]o n 01-27-2023 Reticulocytes/100 RBC (Bld) 1.0 % 0.4 - 2.0 % [facility] VITAMIN B12 BLOODon 01-28-20 Cobalamin (Vitamin B12) [Mass/Vol] 442 pg/mL 232 - 1,245 pg/mL [facility] CBC AUTO DIFFon 08-28-2022 BASO # 0.1 103/ul Normal 0.0-0.1 [facility] Comment on above: Performed By: #### C BC ####[facility] [address] [place] [address]Dr. Be Matt Basophils/100 WBC (Bld) 1.0 % Normal 0.2-2.0 [facility] Comment on above: Performed By: #### C BC ####[facility] [address] [place] [id number]. Be Matt EO # 0.3 103/ul Normal 0.0-0.7 [facility] Comment on above: Performed By: #### C BC ####[facility] [address] [place] [id number]. Be Matt Eosinophils/100 WBC (Bld) 3.9 % Normal 0.9-7.0 [facility] Comment on above: Performed By: #### C BC ####[facility] [address] [place] [id number]. Be Matt Erythrocyte distribution width (RBC) [Ratio] 14.0 % Normal 11.0-15.0 [facility] Comment on above: Performed By: #### C BC ####[facility] [address] [place] [address]DrRadha Matt Hematocrit (Bld) [Volume fraction] 35.5 % Critically low 36.0-48.0 [facility] Comment on above: Performed By: #### C BC ####[facility] [address] [place], [place] [address]DrRadha Matt Hemoglobin (Bld) [Mass/Vol] 11.0 g/dL Critically low 12.0-16.0 [facility] Comment on above: Performed By: #### C BC ####[facility] [address] [place], [place] [address]DrRadha Matt IG # 0.01 10e3/ul Normal 0.00-0.03 [facility] Comment on above: Performed By: #### C BC ####[facility] [address] [place], [place] [address]DrRadha Matt IG % 0.1 % Normal 0.0-0.5 [facility] Comment on above: Performed By: #### C BC ####[facility] [address] [place], [place] [address]DrRadha Matt LYMPH # 2.2 103/ul Normal 1.2-3.8 [facility] Comment on above: Performed By: #### C BC ####[facility] E[address]we[address] [place], [place] [address]DrRadha Matt Lymphocytes/100 WBC (Bld) 27.9 % Normal 20.5-60.0 [facility] Comment on above: Performed By: #### C BC ####[facility] [address] [place], [place] [address]DrRadha Matt MANUAL DIFF REQ NO Normal [facility] Comment on above: Performed By: #### C BC ####[facility] [address] [place], [place] [address]DrRadha Matt MCH (RBC) [Entitic mass] 25.3 pg Critically low 26.7-34.0 [facility] Comment on above: Performed By: #### C BC ####[facility] [address] [place] [address]DrRadha Matt MCHC (RBC) [Mass/Vol] 31.0 g/dL Normal 29.9-35.2 [facility] Comment on above: Performed By: #### C BC ####[facility] Ag[address] [place], [place] [address]DrRadha Matt MCV (RBC) [Entitic vol] 81.8 fL Normal 81.0-99.0 [facility] Comment on above: Performed By: #### C BC ####[facility] [address] [place], [place] [address]DrRadha Matt MONO # 0.6 103/ul Normal 0.3-0.8 [facility] Comment on above: Performed By: #### C BC ####[facility] [address] [place], [place] [address]DrRadha Matt Monocytes/100 WBC (Bld) 7.8 % Normal 1.7-12.0 [facility] Comment on above: Performed By: #### C BC ####[facility] [address] [place], [place] [address]DrRadha Matt NEUT # 4.7 103/ul Normal 1.4-6.5 [facility] Comment on above: Performed By: #### C BC ####[facility] [address] [place], [place] [address]DrRadha Matt Neutrophils/100 WBC (Bld) 59.3 % Normal 43.0-75.0 [facility] Comment on above: Performed By: #### C BC ####[facility] [address] [place], [place] [address]DrRadha Matt Platelet mean volume (Bld) [Entitic vol] 9.8 fL Normal 9.5-13.5 [facility] Comment on above: Performed By: #### C BC ####[facility] [address] [place], [place] [address]DrRadha Matt PLT 291 103/ul Normal 150-450 [facility] Comment on above: Performed By: #### C BC ####[facility] [address] [place] [id number] Matt RBC 4.34 106/ul Normal 4.20-5.40 [facility] Comment on above: Performed By: #### C BC ####[facility] [address] [place] [id number]. Be Matt WBC 8.0 103/ul Normal 4.0-11.0 [facility] Comment on above: Performed By: #### C BC ####[facility] [address] [place] [id number]. Be Matt FREE T4on 08-28-2022 Free T4 [Mass/Vol] 0.85 ng/dL Normal 0.76-1.46 [facility] Comment on above: Performed By: #### F T4 #### [facility] [address] [place] [address] [address] Be Matt GLYCOHEMOGLOBIN A1Con 2022 ADA RECOMMENDATION SEE BELOW Normal [facility] Comment on above: Result Comment: ADA RECOMMENDED LIMIT 4.0 - 6.0 ADA THERAPEUTIC TARGET < 7.0 ACTION SUGGESTED > 7.0 Performed By: #### A 1C #### [facility] [address] [place] [address] Dr. Be Matt Glucose [Mass/Vol] 143 mg/dL Normal [facility] Comment on above: Performed By: #### A 1C #### [facility] [address] [place] [address] Dr. Be Matt HbA1c (Bld) [Mass fraction] 6.6 % Critically high 4.5-6.2 [facility] Comment on above: Performed By: #### A 1C #### [facility] [address] [place] [address] Dr. Be Matt LIPID PROFILEon 08-28-2022 CHOL-HDL RATIO NORM SEE BELOW Normal [facility] Comment on above: Result Comment: 3.3 - 4.4 LOW RISK 4.4 - 7.1 AVERAGE RISK 7.1 - 11.0 MODERATE RISK >11.0 HIGH RISK Performed By: #### T SH, LIPID, CMP #### [facility] [address] [place] [address] Dr. Be Matt Cholesterol [Mass/Vol] 198 mg/dL Normal <=200 [facility] Comment on above: Performed By: #### T SH, LIPID, CMP #### [facility] [address] [place] [address] [address] Be Matt Cholesterol in HDL [Mass/Vol] 43 mg/dL Normal 40-60 [facility] Comment on above: Performed By: #### T SH, LIPID, CMP #### [facility] [address] [place] [address] Dr. Be Matt Cholesterol in LDL [Mass/Vol] 108.8 mg/dL Normal [facility] Comment on above: Performed By: #### T SH, LIPID, CMP #### [facility] [address] [place] [address] Dr. Be Matt Cholesterol.total/Cho lesterol in HDL [Mass ratio] 4.6 {ratio} Normal [facility] Comment on above: Performed By: #### T SH, LIPID, CMP #### [facility] [address] [place] [address] Dr. Be Matt HDL NORMAL > or = 60 mg/dl - LO W CARDIOVASCULAR RISK <40 mg/dl - HIGH CARDIOVASCULAR RISK Normal [facility] Comment on above: Performed By: #### T SH, LIPID, CMP #### [facility] [address] [place] [address] Dr. Be Matt LDL CALC NORMAL SEE BELOW Normal [facility] Comment on above: Result Comment: <100 mg/dl OPTIMAL 100 - 129 mg/dl NEAR OR ABOVE OPTIMAL 130 - 159 mg/dl BORDERLINE HIGH 160 - 189 mg/dl HIGH >190 mg/dl VERY HIGH Performed By: #### T SH, LIPID, CMP #### [facility] [address] [place] [address] Dr. Be Matt Triglyceride [Mass/Vol] 231 mg/dL Critically high <=150 [facility] Comment on above: Performed By: #### T SH, LIPID, CMP #### [facility] [address] [place] [address] [address] Be Matt VLDL CALC 46.2 mg/dL Normal [facility] Comment on above: Performed By: #### T SH, LIPID, CMP #### [facility] [address] [place] [address] [address] Be Matt PROF 14(COMP METB)on 023 Albumin [Mass/Vol] 3.7 g/dL Normal 3.4-5.0 [facility] Comment on above: Performed By: #### T SH, LIPID, CMP #### [facility] [address] [place] [address] [address] Be Matt Albumin/Globulin [Mass ratio] 0.9 {ratio} Normal [facility] Comment on above: Performed By: #### T SH, LIPID, CMP #### [facility] [address] [place] [address] [address] Be Matt ALP [Catalytic activity/Vol] 107 U/L Normal 46-116 [facility] Comment on above: Performed By: #### T SH, LIPID, CMP #### [facility] [address] [place] [address] [address] Be Matt ALT [Catalytic activity/Vol] 48 U/L Normal 14-59 [facility] Comment on above: Performed By: #### T SH, LIPID, CMP #### [facility] [address] [place] [address] [address] Be Matt Anion gap [Moles/Vol] 13.7 mmol/L Normal [facility] Comment on above: Performed By: #### T SH, LIPID, CMP #### [facility] [address] [place] [address] [address] Be Matt AST [Catalytic activity/Vol] 46 U/L Critically high 15-37 [facility] Comment on above: Performed By: #### T SH, LIPID, CMP #### [facility] [address] [place] [address] [address] Be Matt Bilirubin [Mass/Vol] 0.3 mg/dL Normal 0.2-1.0 [facility] Comment on above: Performed By: #### T SH, LIPID, CMP #### [facility] [address] [place] [address] [address] Be Matt Calcium [Mass/Vol] 9.6 mg/dL Normal 8.5-10.1 [facility] Comment on above: Performed By: #### T SH, LIPID, CMP #### [facility] [address] [place] [address] Dr. Be Matt Chloride [Moles/Vol] 103 mmol/L Normal 98-107 [facility] Comment on above: Performed By: #### T SH, LIPID, CMP #### [facility] [address] [place] [address] Dr. Be Matt CO2 [Moles/Vol] 27.8 mmol/L Normal 21.0-32.0 [facility] Comment on above: Performed By: #### T SH, LIPID, CMP #### [facility] [address] [place] [address] Dr. Be Matt Creatinine [Mass/Vol] 0.91 mg/dL Normal 0.55-1.02 [facility] Comment on above: Performed By: #### T SH, LIPID, CMP #### [facility] [address] [place] [address] Dr. Be Matt EGFR-AF AUSTRIAN >60 Normal >=60 [facility] Comment on above: Performed By: #### T SH, LIPID, CMP #### [facility] [address] [place] [address] Dr. Be Matt EGFR-NON AF AUSTRIAN >60 Normal >=60 [facility] Comment on above: Performed By: #### T SH, LIPID, CMP #### [facility] [address] [place] [address] Dr. Be Matt Globulin (S) [Mass/Vol] 4.2 g/dL Normal [facility] Comment on above: Performed By: #### T SH, LIPID, CMP #### [facility] [address] [place] [address] Dr. Be Matt Glucose [Mass/Vol] 129 mg/dL Critically high 74-106 [facility] Comment on above: Performed By: #### T SH, LIPID, CMP #### [facility] [address] [place] [address] Dr. Be Matt Potassium [Moles/Vol] 4.5 mmol/L Normal 3.5-5.1 [facility] Comment on above: Performed By: #### T BRITTNEY, LIPID, CMP #### [facility] [address] [place] [address] Dr. Be Matt Protein [Mass/Vol] 7.9 g/dL Normal 6.4-8.2 [facility] Comment on above: Performed By: #### T BRITTNEY, LIPID, CMP #### [facility] [address] [place] [address] Dr. Be Matt Sodium [Moles/Vol] 140 mmol/L Normal 136-145 [facility] Comment on above: Performed By: #### T BRITTNEY, LIPID, CMP #### [facility] [address] [place] [address] Dr. Be Matt Urea nitrogen [Mass/Vol] 15.0 mg/dL Normal 7.0-18.0 [facility] Comment on above: Performed By: #### T SH, LIPID, CMP #### [facility] [address] [place] [address] Dr. Be Matt Urea nitrogen/Creatinine [Mass ratio] 16.5 mg/mg Normal [facility] Comment on above: Performed By: #### T BRITTNEY, LIPID, CMP #### [facility] [address] [place] [address] Dr. Be Matt TSHon 08-28-2022 TSH 3.347 uIU/mL Normal 0.358-3.[address] [facility] Comment on above: Performed By: #### T BRITTNEY, LIPID, CMP #### [facility] [address] [place] [address] Dr. Be Matt MG MAMM SCREEN 3D LIZABETH CADon 03-16-2022 MG MAMM SCREEN 3D LIZABETH CAD Patient: JEANNETTE HURTADORadha Exam Date: 03/16/2022 : 1965 Gender:F Ordering : DR JONAS SANDERS . Admission #: [id number] Family : Order #: [id number] CLICK HERE TO VIEW EXAM RADIOLOGY REPORT PROCEDURE: MAMMOGRAM SCREENING 3D BILATERAL CAD COMPARISON: MG MAMM SCREEN LIZABETH W CAD, 05/15/2019. MG MAMM SCREEN LIZABETH W CAD, 06/27/2020. INDICATIONS: Screening mammography Calculator Name NCI Breast Cancer Risk Assessment Tool 5 Year Breast Cancer Risk 1.70% Lifetime Breast Cancer Risk 9.60% Personal Breast Cancer No Personal Ovarian Cancer No Treatments None Family Cancers None LOCATION: [facility] BREAST COMPOSITION: Scattered areas fibroglandular density. FINDINGS: DIAGNOSTIC CATEGORY 2--BENIGN FINDING. NO CHANGE FROM COMPARISON. Scattered benign-appearing lymph nodes are present. RIGHT BREAST: No significant suspicious finding. Stable nodule at the chest wall lower inner quadrant. LEFT BREAST: No significant suspicious finding. RECOMMENDATIONS: ROUTINE MAMMOGRAM AND CLINICAL EVALUATION IN 12 MONTHS. PLEASE NOTE: A NORMAL MAMMOGRAM DOES NOT EXCLUDE THE POSSIBILITY OF BREAST CANCER. A CLINICALLY SUSPICIOUS PALPABLE LUMP SHOULD BE BIOPSIED. Dictated by: Joyce Dunbar MD on 03/17/2022 at 08:18 Approved by: Joyce Dunbar MD on 03/17/2022 at 08:20 Normal [facility] CBC AUTO DIFFon 02-17-2022 BASO # 0.1 103/ul Normal 0.0-0.1 [facility] Comment on above: Performed By: #### C BC #### [facility] [address] [place] [address] Dr. Be Matt Basophils/100 WBC (Bld) 0.5 % Normal 0.2-2.0 [facility] Comment on above: Performed By: #### C BC #### [facility] [address] [place] [address] Dr. Be Matt EO # 0.3 103/ul Normal 0.0-0.7 [facility] Comment on above: Performed By: #### C BC #### [facility] [address] [place] [address] Dr. Be Matt Eosinophils/100 WBC (Bld) 2.7 % Normal 0.9-7.0 [facility] Comment on above: Performed By: #### C BC #### [facility] [address] [place] [address] Dr. Be Matt Erythrocyte distribution width (RBC) [Ratio] 13.7 % Normal 11.0-15.0 [facility] Comment on above: Performed By: #### C BC #### [facility] [address] [place] [address] Dr. Be Matt Hematocrit (Bld) [Volume fraction] 37.8 % Normal 36.0-48.0 [facility] Comment on above: Performed By: #### C BC #### [facility] [address] [place] [address] Dr. Be Matt Hemoglobin (Bld) [Mass/Vol] 11.7 g/dL Critically low 12.0-16.0 [facility] Comment on above: Performed By: #### C BC #### [facility] [address] [place] [address] Dr. Be Matt IG # 0.03 10e3/ul Normal 0.00-0.03 [facility] Comment on above: Performed By: #### C BC #### [facility] [address] [place] [address] Dr. Be Matt IG % 0.3 % Normal 0.0-0.5 [facility] Comment on above: Performed By: #### C BC #### [facility] [address] [place] [address] Dr. Be Matt LYMPH # 2.6 103/ul Normal 1.2-3.8 [facility] Comment on above: Performed By: #### C BC #### [facility] [address] [place] [address] Dr. Be Matt Lymphocytes/100 WBC (Bld) 23.4 % Normal 20.5-60.0 [facility] Comment on above: Performed By: #### C BC #### [facility] [address] [place] [address] Dr. Be Matt MANUAL DIFF REQ NO Normal [facility] Comment on above: Performed By: #### C BC #### [facility] [address] [place] [address] Dr. Be Matt MCH (RBC) [Entitic mass] 27.4 pg Normal 26.7-34.0 [facility] Comment on above: Performed By: #### C BC #### [facility] [address] [place] [address] Dr. Be Matt MCHC (RBC) [Mass/Vol] 31.0 g/dL Normal 29.9-35.2 [facility] Comment on above: Performed By: #### C BC #### [facility] [address] [place] [address] Dr. Be Matt MCV (RBC) [Entitic vol] 88.5 fL Normal 81.0-99.0 [facility] Comment on above: Performed By: #### C BC #### [facility] [address] [place] [address] Dr. Be Matt MONO # 0.6 103/ul Normal 0.3-0.8 [facility] Comment on above: Performed By: #### C BC #### [facility] [address] [place] [address] Dr. Be Matt Monocytes/100 WBC (Bld) 5.8 % Normal 1.7-12.0 [facility] Comment on above: Performed By: #### C BC #### [facility] [address] [place] [address] Dr. Be Matt NEUT # 7.5 103/ul Critically high 1.4-6.5 [facility] Comment on above: Performed By: #### C BC #### [facility] [address] [place] [address] Dr. Be Matt Neutrophils/100 WBC (Bld) 67.3 % Normal 43.0-75.0 [facility] Comment on above: Performed By: #### C BC #### [facility] [address] [place] [address] Dr. Be Matt Platelet mean volume (Bld) [Entitic vol] 9.9 fL Normal 9.5-13.5 [facility] Comment on above: Performed By: #### C BC #### [facility] [address] [address] [address] Be Matt PLT 263 103/ul Normal 150-450 [facility] Comment on above: Performed By: #### C BC #### [facility] [address] [address] [address] Be Matt RBC 4.27 106/ul Normal 4.20-5.40 [facility] Comment on above: Performed By: #### C BC #### [facility] [address] [address] [address] Be Matt WBC 11.1 103/ul Critically high 4.0-11.0 [facility] Comment on above: Performed By: #### C BC #### [facility] [address] [place] [address] Dr. Be Matt GLYCOHEMOGLOBIN A1Con 2021 ADA RECOMMENDATION SEE BELOW Normal [facility] Comment on above: Result Comment: ADA RECOMMENDED LIMIT 4.0 - 6.0 ADA THERAPEUTIC TARGET < 7.0 ACTION SUGGESTED > 7.0 Performed By: #### A 1C ####[facility] [address] [address]Dr. Be Matt Glucose [Mass/Vol] 137 mg/dL Normal [facility] Comment on above: Performed By: #### A 1C ####[facility] [address] [address]Dr. Be Matt HbA1c (Bld) [Mass fraction] 6.4 % Critically high 4.5-6.2 [facility] Comment on above: Performed By: #### A 1C ####[facility] [address] [address]Dr. Be Matt PROF CHEM 8 (BAS METB)on Anion gap [Moles/Vol] 10.0 mmol/L Normal Th [facility] Comment on above: Performed By: #### B MP, TSH #### [facility] [address] [address] [address] Be Matt Calcium [Mass/Vol] 8.9 mg/dL Normal 8.5-10.1 [facility] Comment on above: Performed By: #### B MP, TSH #### [facility] [address] [address] [address] Be Matt Chloride [Moles/Vol] 103 mmol/L Normal 98-107 [facility] Comment on above: Performed By: #### B MP, TSH #### [facility] [address] [address] [address] Be Matt CO2 [Moles/Vol] 29.1 mmol/L Normal 21.0-32.0 [facility] Comment on above: Performed By: #### B MP, TSH #### [facility] [address] [address] [address] Be Matt Creatinine [Mass/Vol] 0.82 mg/dL Normal 0.55-1.02 [facility] Comment on above: Performed By: #### B MP, TSH #### [facility] [address] [place] [address] Dr. Be Matt EGFR-AF AUSTRIAN >60 Normal >=60 [facility] Comment on above: Performed By: #### B MP, TSH #### [facility] [address] [place] [address] Dr. Be Matt EGFR-NON AF AUSTRIAN >60 Normal >=60 [facility] Comment on above: Performed By: #### B MP, TSH #### [facility] [address] [place] [address] Dr. Be Matt Glucose [Mass/Vol] 118 mg/dL Critically high 74-106 [facility] Comment on above: Performed By: #### B MP, TSH #### [facility] [address] [address] [address] eB Matt Potassium [Moles/Vol] 4.1 mmol/L Normal 3.5-5.1 [facility] Comment on above: Performed By: #### B MP, TSH #### [facility] [address] [address] [address] Be Matt Sodium [Moles/Vol] 138 mmol/L Normal 136-145 [facility] Comment on above: Performed By: #### B MP, TSH #### [facility] [address] [address] [address] Be Matt Urea nitrogen [Mass/Vol] 13.0 mg/dL Normal 7.0-18.0 [facility] Comment on above: Performed By: #### B MP, TSH #### [facility] [address] [address] [address] Be Matt Urea nitrogen/Creatinine [Mass ratio] 15.9 mg/mg Normal [facility] Comment on above: Performed By: #### B MP, TSH #### [facility] [address] [address] [address] Be Matt TSHon 02-17-2022 TSH 2.473 uIU/mL Normal 0.358-3.[address] [facility] Comment on above: Performed By: #### B MP, TSH #### [facility] [address] [place] [address] Dr. Be Matt PAP ACOG PANEL 2: 30 to 65on 01-01-[address] [facility] Comment on above: Result Comment: Perf ormed at: WB Performed By: #### [id number] ####[facility] [address] [address]Dr. Be Matt Age Gdln ACOG Testing 30-[address] [facility] Comment on above: Performed By: #### 4 [id number] ####[facility] [address] [address]Dr. Be Matt DIAGNOSIS: Comment Normal [facility] Comment on above: Result Comment: NEGA TIVE FOR INTRAEPITHELIAL LESION OR MALIGNANCY. Performed at: WB Performed By: #### [id number] ####[facility] [address] [address]Dr. Be Matt HPV Aptima Negative Normal Negative [facility] Comment on above: Result Comment: This nucleic acid amplification test detects fourteen high-risk HPV types (16,18,31,33,35,39,45,51,52,56,58,59,66,68) without differentiation. Performed at: =G Performed By: #### [id number] ####[facility] [address] [place], [place] [address]Dr. Be Matt Methodology: Comment Normal [facility] Comment on above: Result Comment: This liquid based ThinPrep(R) pap test was screened with the use of an image guided system. Performed at: WB Performed By: #### [id number] ####[facility] [address] [place], [place] [address]DrRadha Matt Note: Comment Normal [facility] Comment on above: Result Comment: The Pap smear is a screening test designed to aid in the detection of premalignant and malignant conditions of the uterine cervix. It is not a diagnostic procedure and should not be used as the sole means of detecting cervical cancer. Both false-positive and false-negative reports do occur. . Performed at: WB Performed By: #### [id number] ####[facility] [address] [place], [place] [address]DrRadha Matt Performed by: Comment Normal [facility] Comment on above: Result Comment: Lynnette Leo Laundry Manager (ASCP) Performed at: WB Performed By: #### [id number] ####[facility] [address] [place], [place] [address]DrRadha Matt Specimen adequacy: Comment Normal [facility] Comment on above: Result Comment: Sati sfactory for evaluation. Endocervical and/or squamous metaplastic cells (endocervical component) are present. Performed at: WB Performed By: #### 4 [id number] ####[facility] [address] [place], [place] [address]DrRadha Matt FLUOROSCOPY IN OR/PAIN MGTon 03-04-2020 FLUOROSCOPY IN OR/PAIN MGT FLUOROSCOPY IN OR/PAIN MGT Ordering Physician: Luther Horowitz MD 03/04/2020 10:40 AM INTRAOPERATIVE FLUOROSCOPY LEFT FOOT: Clinical Statement: Osteochondrosis of left tarsus, pes cavus left foot. REPORT: 126.4 seconds of fluoroscopy time was utilized in the OR by Dr. Martins. 11 fluoroscopic images of the left foot were obtained during the procedure and saved to PACS for documentation. IMPRESSION: Documentation of intraoperative fluoroscopy. ---- Electronic Signature on File ---- Signed By: Harrison Orantes MD [email or web address] Dictated: 03/04/2020 1:37 PM Signed: 03/04/2020 1:37 PM Reported By: HARRISON ORANTES M.D. Signed By: HARRISON ORANTES M.D. [facility] Jono Barnes 03-04-2020 OPERATIVE REPORT [facility] OR DATE OF SERVICE: PREOPERATIVE DIAGNOSES: 1. Left peroneus brevis tendon tear. 2. 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 POSTOPERATIVE DIAGNOSES: 1. Left peroneus brevis tendon tear. 2. 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 OPERATION: 1. Left peroneal tendon transfer, peroneus longus to brevis insertion. 2. Left peroneal tenosynovectomy and debridement of os peroneum. 3. Reconstruction for peroneal subluxation. 4. Lateralizing calcaneal osteotomy. 5. Open plantar fascia release. 6. Left first metatarsal dorsiflexion osteotomy. SURGEON: Luther Horowitz MD ASSISTANT MEN'S SOCCER COACH: None. PATIENT NAME: JEANNETTE HURTADO [address] [facility] [address] Guevara MEDICAL REC #: [id number] [place] [address] ADMIT DATE: DISCHARGE DATE: OPERATIVE REPORT ATTENDING PHY: Luther Horowitz MD ANESTHESIA: General with popliteal and saphenous blocks for postoperative pain. COMPLICATIONS: None. DESCRIPTION OF THE PROCEDURE: After informed consent, proper identification, the patient was taken to the operating room and placed on the table in supine position. After smooth induction of general anesthesia and having received a dose of antibiotics, popliteal and saphenous blocks, the patients left leg was fitted with a well-padded thigh high tourniquet and prepped and draped in normal sterile fashion. The leg was exsanguinated with an Esmarch and tourniquet was inflated to 300 mmHg. Patients lateral incision was made over the previous peroneal tendon surgery. Dissection was deepened to the peroneal tendon sheath which was noted to be very redundant. This was opened off of the edge of the fibula and extremely hypertrophic peroneal tenosynovitis was noted involving the peroneus brevis. There was extensive split tearing and shredding of the peroneus brevis tendon through the area from above the lateral malleolar groove down to past the peroneal tubercle of the calcaneus. The insertion of the peroneus brevis appeared to be relatively PATIENT NAME: JEANNETTE HURTADO [address] [facility] [address] Gue[address]a MEDICAL REC #: [id number] [place] [address] ADMIT DATE: DISCHARGE DATE: OPERATIVE REPORT ATTENDING PHY: Luther Horowitz MD well-maintained. The peroneus longus tendon had tenosynovitis and some tendinosis, but no tear. This was dissected down to the level of the os peroneum. A tenotomy was performed just distal to the os peroneum and then the os peroneum was excised. The peroneus longus tendon was then whipstitched with Vicryl suture in preparation for transfer. Next, while protecting the peroneus longus tendon, a dissection was deepened posterior to the peroneal tendon sheath to the calcaneal tuberosity. Under fluoroscopic guidance, the location for calcaneal osteotomy was exposed and marked. I then performed the calcaneal osteotomy with an oscillating saw and completed it with the osteotome. I distracted the osteotomy using a lamina director it. I was then able to lateralize and rotate the calcaneus to improve her cava varus deformity. This was provisionally pinned with a K-wire and checked fluoroscopically in the lateral and axial views. I then placed 2 guide wires for Arthrex 7.0 headless screws and once these were verified to be in good position fluoroscopically, I measured, drilled, and placed the 2 screws with good compression. Provisional K-wire was then removed. Next, the peroneus longus tendon was brought down to the peroneus brevis insertion PATIENT NAME: JEANNETTE HURTADO [address] [facility] [address] Gue[address]a MEDICAL REC #: [id number] [place] [address] ADMIT DATE: DISCHARGE DATE: OPERATIVE REPORT ATTENDING PHY: Luther Horowitz MD and the edges of both tendons roughened. A transfer was performed using the No. 2 FiberTape with several jifasw-io-cgwgb anastomosis sutures. The remaining peroneus brevis tendon was then cut and excised, allowing the muscles to retract as there was no viable tendon for anastomosis proximally. The peroneus longus tendon was then returned to the peroneal groove of the fibula. The groove was checked and found to be smooth and adequate. The peroneal reconstruction for subluxation was then performed using No. 2 FiberWire suture in a jcipy-pgdi-vzss fashion, tightening the retinaculum. I then oversewed the repair with 2-0 Vicryl in a running fashion. The motion of the peroneal tendon transfer through the groove was verified to be without any binding or catching, and there was no subluxation noted. The wound was irrigated. Next, I injected deep and superficial with a mixture of Exparel 20 mL as well as 0.25% bupivacaine without epinephrine, Toradol and Duramorph for postoperative pain relief. The wound was then closed with 2-0 Vicryl in a simple interrupted buried fashion for the subcutaneous closure and 3-0 nylon and vertical mattress for the skin. The plantar fascial incision was also irrigated, injected PATIENT NAME: JEANNETTE HURTADO [address] [facility] [address] Gue[address] MEDICAL REC #: [id number] [place] [address] ADMIT DATE: DISCHARGE DATE: OPERATIVE REPORT ATTENDING PHY: Luther Horowitz MD with the Exparel mixture, and closed as was the smaller percutaneous incision in the posterior heel which was made for screw insertion. Next, attention was turned to the dorsal aspect of the first metatarsal. Incision was made over the proximal first metatarsal shaft and first MTP joint. The shaft was exposed and care was taken not to open the joint. I then marked the location of intended first metatarsal dorsiflexion osteotomy, leaving room for the Arthrex cotton plate to fit within the base of the first metatarsal. The osteotomy was then made with an oscillating saw and I removed a wedge of bone to allow dorsiflexion and to obtain the proper first metatarsal alignment. I then translated the metatarsal slightly dorsally to match the dorsal cortex as much as possible and closed the wedge, holding it in compression. This was provisionally fixed with a K-wire. I then contoured the Arthrex cotton plate and then applied the plate over the osteotomy site. Two proximal nonlocking and two distal nonlocking screws were drilled and placed securing the plate with excellent fixation of the osteotomy. Final fluoroscopic images were obtained which showed good alignment after reconstruction. The wound was irrigated, injected with the Exparel mixture, and PATIENT NAME: JEANNETTE HURTADO [address] [facility] [address] Gue[address]a MEDICAL REC #: [id number] [place] [address] ADMIT DATE: DISCHARGE DATE: OPERATIVE REPORT ATTENDING PHY: Luther Horowitz MD closed as previously described. Next, dressings were applied with Xeroform, 4 x 4s, Kerlix, and a well-padded short-leg sugar-tong splint with the ankle in neutral position. The tourniquet was deflated and removed. The patient revived from anesthesia, taken to post anesthesia care unit in stable condition. There were no complications. The attending physician, Luther Horowitz, was present throughout the entire procedure, and all counts were correct. POSTOPERATIVE PLAN: Discharged home and comfortable. Ice, elevation, and nonweightbearing affect to lower extremity. The patient will leave the dressing on and keep it clean and dry. Follow up at [facility] in 2 weeks. MEDICATIONS: Patient to resume her preoperative medications. Also, Percocet 5/325 mg p.o. 1 every 6 hours for pain as needed. She will alternate ibuprofen and Tylenol as well to minimize narcotic use. Luther Horowitz MD PATIENT NAME: JEANNETTE HURTADO [address] [facility] [address] MEDICAL REC #: [id number] [place] [address] ADMIT DATE: DISCHARGE DATE: OPERATIVE REPORT ATTENDING PHY: Luther Horowitz MD [id number] SSI File#: [id number] END OF DOCUMENT / CHANGE LOG FOLLOWS Last Edited By Elec. Signed By Luther Horowitz MD #CHADA Luther Horowitz MD #NATALY on 03/24/2020 08:02 ET on 03/24/2020 08:02 ET Revision Number - 2 Verified/Reviewed by 03/24/20801 NATALY PATIENT NAME: JEANNETTE HURTADO [facility] [address] MEDICAL REC #: [id number] [place] [address] ADMIT DATE: DISCHARGE DATE: OPERATIVE REPORT ATTENDING PHY: Luther Horowitz MD [facility] Vital Signs Date Time Vital Sign Value Performing Clinician Facility 02-15-2024 14:48-0400 Body temperature 97.2 [degF] Ma Sand Work Phone: [facility] 02-15-2024 14:48-0400 Diastolic blood pressure 83 mm[Hg] Ma Sand Work Phone: [facility] 02-15-2024 14:48-0400 Heart rate 75 /min Ma Sand Work Phone: [facility] 02-15-2024 14:48-0400 Respiratory rate 16 /min Ma Sand Work Phone: [facility] 02-15-2024 14:48-0400 SaO2% (BldA) [Mass fraction] 98 % Ma Sand Work Phone: [facility] 02-15-2024 14:48-0400 Systolic blood pressure 137 mm[Hg] Ma Sand Work Phone: [facility] 02-08-2024 09:54-0400 Body height 170.18 cm [facility] 02-08-2024 09:54-0400 Body mass index (BMI) [Ratio] 31.1 kg/m2 [facility] 02-08-2024 09:54-0400 Body weight 90.26 kg [facility] 02-08-2024 09:54-0400 Diastolic blood pressure 88 mm[Hg] [facility] 02-08-2024 09:54-0400 Heart rate 59 /min [facility] 02-08-2024 09:54-0400 Systolic blood pressure 138 mm[Hg] [facility] 02-06-2024 14:02-0400 Body height 170.18 cm [facility] 02-06-2024 14:02-0400 Body mass index (BMI) [Ratio] 31.3 kg/m2 [facility] 02-06-2024 14:02-0400 Body weight 90.71 kg [facility] 02-06-2024 14:02-0400 Diastolic blood pressure 86 mm[Hg] [facility] 02-06-2024 14:02-0400 Heart rate 71 /min [facility] 02-06-2024 14:02-0400 Respiratory rate 18 /min [facility] 02-06-2024 14:02-0400 SaO2% (BldA) [Mass fraction] 98 % [facility] 02-06-2024 14:02-0400 Systolic blood pressure 164 mm[Hg] [facility] 01-18-2024 15:19-0400 Body temperature 97.81 [degF] Ma Sand Work Phone: [facility] 01-18-2024 15:19-0400 Diastolic blood pressure 76 mm[Hg] Ma Sand Work Phone: [facility] 01-18-2024 15:19-0400 Heart rate 77 /min Ma Sand Work Phone: [facility] 01-18-2024 15:19-0400 Respiratory rate 16 /min Mervin Yoo Work Phone: [facility] 01-18-2024 15:19-0400 SaO2% (BldA) [Mass fraction] 98 % Mervin Yoo Work Phone: [facility] 01-18-2024 15:19-0400 Systolic blood pressure 134 mm[Hg] Mervin Yoo Work Phone: [facility] 12-21-2023 14:20-0400 Body height 167.6 cm Jose Rose MD Work Phone: [facility] 12-21-2023 14:20-0400 Body mass index (BMI) [Ratio] 31.97 kg/m2 Jose Rose MD Work Phone: [facility] 12-21-2023 14:20-0400 Body temperature 97.2 [degF] Jose Rose MD Work Phone: [facility] 12-21-2023 14:20-0400 Body weight 89.8 kg Jose Rose MD Work Phone: [facility] 12-21-2023 14:20-0400 Diastolic blood pressure 79 mm[Hg] Jose Rose MD Work Phone: [facility] 12-21-2023 14:20-0400 Heart rate 58 /min Jose Rose MD Work Phone: [facility] 12-21-2023 14:20-0400 Respiratory rate 16 /min Jose Rose MD Work Phone: [facility] 12-21-2023 14:20-0400 SaO2% (BldA) [Mass fraction] 98 % Jose Rose MD Work Phone: [facility] 12-21-2023 14:20-0400 Systolic blood pressure 171 mm[Hg] Jose Rose MD Work Phone: [facility] 11-28-2023 14:16-0400 Body temperature 97.5 [degF] Ma Sand Work Phone: [facility] 11-28-2023 14:16-0400 Diastolic blood pressure 83 mm[Hg] Ma Sand Work Phone: [facility] 11-28-2023 14:16-0400 Heart rate 84 /min Ma Sand Work Phone: [facility] 11-28-2023 14:16-0400 Respiratory rate 16 /min Ma Sand Work Phone: [facility] 11-28-2023 14:16-0400 SaO2% (BldA) [Mass fraction] 98 % Ma Sand Work Phone: [facility] [facility] 11-28-2023 14:16-0400 Systolic blood pressure 151 mm[Hg] Ma Sand Work Phone: [facility] 10-31-2023 13:31-0400 Body temperature 97.9 [degF] Ma Sand Work Phone: [facility] 10-31-2023 13:31-0400 Diastolic blood pressure 74 mm[Hg] Ma Sand Work Phone: [facility] 10-31-2023 13:31-0400 Heart rate 61 /min Ma Sand Work Phone: [facility] 10-31-2023 13:31-0400 Respiratory rate 16 /min Ma Sand Work Phone: [facility] 10-31-2023 13:31-0400 SaO2% (BldA) [Mass fraction] 100 % Ma Sand Work Phone: [facility] 10-31-2023 13:31-0400 Systolic blood pressure 125 mm[Hg] Ma Sand Work Phone: [facility] 10-03-2023 13:26-0400 Body height 167.6 cm Jose Rose MD Work Phone: [facility] 10-03-2023 13:26-0400 Body mass index (BMI) [Ratio] 31.72 kg/m2 Jose Rose MD Work Phone: [facility] 10-03-2023 13:26-0400 Body temperature 97.81 [degF] Jose Rose MD Work Phone: [facility] 10-03-2023 13:26-0400 Body weight 89.1 kg Jose Rose MD Work Phone: [facility] 10-03-2023 13:26-0400 Diastolic blood pressure 82 mm[Hg] Jose Rose MD Work Phone: [facility] 10-03-2023 13:26-0400 Heart rate 76 /min Jose Rose MD Work Phone: [facility] 10-03-2023 13:26-0400 Respiratory rate 16 /min Jose Rose MD Work Phone: [facility] 10-03-2023 13:26-0400 SaO2% (BldA) [Mass fraction] 98 % Jose Rose MD Work Phone: [facility] 10-03-2023 13:26-0400 Systolic blood pressure 136 mm[Hg] Jose Rose MD Work Phone: [facility] 07-11-2023 13:01-0500 Body height 167.6 cm Ruben Wiggins APRN.SOLUTION ANALYST Work Phone: [facility] 07-11-2023 13:01-0500 Body temperature 97.2 [degF] Ruben Wiggins APRN.SOLUTION ANALYST Work Phone: [facility] 07-11-2023 13:01-0500 Body weight 92.6 kg Ruben Wiggins APRN.SOLUTION ANALYST Work Phone: [facility] 07-11-2023 13:01-0500 Diastolic blood pressure 77 mm[Hg] Ruben Wiggins APRN.SOLUTION ANALYST Work Phone: [facility] 07-11-2023 13:01-0500 Heart rate 84 /min Ruben [place] LAB MANAGER.SOLUTION ANALYST Work Phone: [facility] 07-11-2023 13:01-0500 Respiratory rate 16 /min Ruben Wiggins LAB MANAGER.SOLUTION ANALYST Work Phone: [facility] 07-11-2023 13:01-0500 SaO2% (BldA) [Mass fraction] 99 % Ruben Wiggins LAB MANAGER.SOLUTION ANALYST Work Phone: [facility] 07-11-2023 13:01-0500 Systolic blood pressure 150 mm[Hg] Ruben Wiggins LAB MANAGER.SOLUTION ANALYST Work Phone: [facility] 07-08-2023 16:42-0500 Diastolic blood pressure 82 mm[Hg] MD Klaudia Gomez Work Phone: [facility] 07-08-2023 16:42-0500 Heart rate 66 /min MD Klaudia Gomez Work Phone: [facility] 07-08-2023 16:42-0500 Respiratory rate 16 /min MD Klaudia Gomez Work Phone: [facility] 07-08-2023 16:42-0500 SaO2% (BldA) [Mass fraction] 97 % MD Klaudia Gomez Work Phone: [facility] 07-08-2023 16:42-0500 Systolic blood pressure 145 mm[Hg] MD Klaudia Gomez Work Phone: [facility] 07-08-2023 15:45-0500 Body temperature 97.5 [degF] MD Klaudia Gomez Work Phone: [facility] 07-08-2023 08:39-0500 Body height 170.18 cm MD Klaudia Gomez Work Phone: [facility] 07-08-2023 08:39-0500 Body weight 91 kg MD Klaudia Gomez Work Phone: [facility] 06-17-2023 09:34-0500 Diastolic blood pressure 86 mm[Hg] MD Klaudia Gomez Work Phone: [facility] 06-17-2023 09:34-0500 Heart rate 66 /min MD Klaudia Gomez Work Phone: [facility] 06-17-2023 09:34-0500 Systolic blood pressure 162 mm[Hg] MD Klaudia Gomez Work Phone: [facility] 06-02-2023 13:40-0500 Body height 167.64 cm Haresh Madhuriomia Other [facility] 06-02-2023 13:40-0500 Body mass index (BMI) [Ratio] 33.7 kg/m2 Haresh Madhuriomia Other [facility] Other 06-02-2023 13:40-0500 Body weight 94.71 kg Haresh Madhuriomia Other [facility] 06-02-2023 13:40-0500 Diastolic blood pressure 86 mm[Hg] Haresh Madhuriomia Other [facility] 06-02-2023 13:40-0500 Respiratory rate 18 /min Haresh Madhuriomia Other [facility] Other 06-02-2023 13:40-0500 SaO2% (BldA) [Mass fraction] 98 % Haresh Koromia Other [facility] Other 06-02-2023 13:40-0500 Systolic blood pressure 144 mm[Hg] Haresh Madhuriomia Other [facility] 05-03-2023 13:40-0500 Body height 167.64 cm MD Klaudia Gomez Work Phone: [facility] 05-03-2023 13:40-0500 Body weight 95.7 kg MD Klaudia Gomez Work Phone: [facility] 05-03-2023 13:40-0500 Diastolic blood pressure 86 mm[Hg] MD Klaudia Gomez Work Phone: [facility] 05-03-2023 13:40-0500 Systolic blood pressure 132 mm[Hg] MD Klaudia Gomez Work Phone: [facility] 04-04-2023 12:57-0500 Body height 167.6 cm Ruben Wiggins APRN.SOLUTION ANALYST Work Phone: [facility] 04-04-2023 12:57-0500 Body temperature 97.59 [degF] Ruben Wiggins APRN.SOLUTION ANALYST Work Phone: [facility] 04-04-2023 12:57-0500 Body weight 92.99 kg Ruben Wiggins APRN.SOLUTION ANALYST Work Phone: [facility] 04-04-2023 12:57-0500 Diastolic blood pressure 66 mm[Hg] Ruben Wiggins APRN.SOLUTION ANALYST Work Phone: [facility] 04-04-2023 12:57-0500 Heart rate 58 /min Ruben Wiggins APRN.SOLUTION ANALYST Work Phone: [facility] 04-04-2023 12:57-0500 Respiratory rate 16 /min Ruben Wiggins APRN.SOLUTION ANALYST Work Phone: [facility] 04-04-2023 12:57-0500 SaO2% (BldA) [Mass fraction] 97 % Ruben Wiggins APRN.SOLUTION ANALYST Work Phone: [facility] 04-04-2023 12:57-0500 Systolic blood pressure 162 mm[Hg] Ruben Wiggins APRN.SOLUTION ANALYST Work Phone: [facility] 03-07-2023 13:00-0400 Body temperature 98.71 [degF] Chair [place] Work Phone: [facility] 03-07-2023 13:00-0400 Diastolic blood pressure 81 mm[Hg] Chair Ani Work Phone: [facility] 03-07-2023 13:00-0400 Heart rate 63 /min Chair [place] Work Phone: [facility] 10-23-2023 13:00-0400 Respiratory rate 16 /min Chair Ani Work Phone: [facility] 03-07-2023 13:00-0400 SaO2% (BldA) [Mass fraction] 97 % Chair Ani Work Phone: [facility] 03-07-2023 13:00-0400 Systolic blood pressure 138 mm[Hg] Chair [place] Work Phone: [facility] 02-21-2023 13:03-0400 Body temperature 97.9 [degF] Chair Ani Work Phone: [facility] 02-21-2023 13:03-0400 Diastolic blood pressure 69 mm[Hg] Chair [place] Work Phone: [facility] 02-21-2023 13:03-0400 Heart rate 67 /min Chair [place] Work Phone: [facility] 02-21-2023 13:03-0400 Respiratory rate 18 /min Chair Ani Work Phone: [facility] 02-21-2023 13:03-0400 SaO2% (BldA) [Mass fraction] 97 % Chair [place] Work Phone: [facility] 02-21-2023 13:03-0400 Systolic blood pressure 138 mm[Hg] Chair [place] Work Phone: [facility] 02-07-2023 13:31-0400 Body height 167.6 cm Jose Rose MD Work Phone: [facility] 02-07-2023 13:31-0400 Body temperature 97 [degF] Jose Rose MD Work Phone: [facility] 02-07-2023 13:31-0400 Body weight 93.26 kg Jose Rose MD Work Phone: [facility] 02-07-2023 13:31-0400 Diastolic blood pressure 71 mm[Hg] Jose Rose MD Work Phone: [facility] 02-07-2023 13:31-0400 Heart rate 64 /min Jose Rose MD Work Phone: [facility] 02-07-2023 13:31-0400 Respiratory rate 18 /min Jose Rose MD Work Phone: [facility] 02-07-2023 13:31-0400 SaO2% (BldA) [Mass fraction] 99 % Jose Rose MD Work Phone: [facility] 02-07-2023 13:31-0400 Systolic blood pressure 156 mm[Hg] Jose Rose MD Work Phone: [facility] 01-26-2023 15:36-0400 Body height 167.6 cm Jose Rose MD Work Phone: [facility] 01-26-2023 15:36-0400 Body temperature 97.2 [degF] Jose Rose MD Work Phone: [facility] 01-26-2023 15:36-0400 Body weight 93.44 kg Jose Rose MD Work Phone: [facility] 01-26-2023 15:36-0400 Diastolic blood pressure 75 mm[Hg] Jose Rose MD Work Phone: [facility] 01-26-2023 15:36-0400 Heart rate 74 /min Jose Rose MD Work Phone: [facility] 01-26-2023 15:36-0400 Respiratory rate 16 /min Jose Rose MD Work Phone: [facility] 01-26-2023 15:36-0400 SaO2% (BldA) [Mass fraction] 98 % Jose Rose MD Work Phone: [facility] 01-26-2023 15:36-0400 Systolic blood pressure 154 mm[Hg] Jose Rose MD Work Phone: [facility] 01-05-2023 09:45-0400 Body height 167.64 cm Klaudia Gomez Other [facility] Other 01-05-2023 09:45-0400 Body mass index (BMI) [Ratio] 32.44 kg/m2 Klaudia Gomez Other [facility] Other 01-05-2023 09:45-0400 Body weight 91.17 kg Klaudia Gomez Other [facility] Other 01-05-2023 09:45-0400 Diastolic blood pressure 70 mm[Hg] Klaudia Gomez Other [facility] Other 01-05-2023 09:45-0400 Systolic blood pressure 136 mm[Hg] Klaudia Gomez Other [facility] Other 11-19-2022 08:45-0400 Body height 167.64 cm Klaudia Gomez Other [facility] Other 11-19-2022 08:45-0400 Body mass index (BMI) [Ratio] 33.41 kg/m2 Klaudia Gomez Other [facility] Other 11-19-2022 08:45-0400 Body weight 93.9 kg Klaudia Gomez Other [facility] Other 11-19-2022 08:45-0400 Diastolic blood pressure 77 mm[Hg] Klaudia Gomez Other [facility] Other 11-19-2022 08:45-0400 SaO2% (BldA) [Mass fraction] 98 % Klaudia Gomez Other [facility] Other 11-19-2022 08:45-0400 Systolic blood pressure 146 mm[Hg] Klaudia Gomez Other [facility] Other 10-07-2022 13:30-0400 Body height 167.64 cm Klaudia Gomez Other [facility] Other 10-07-2022 13:30-0400 Body mass index (BMI) [Ratio] 34.18 kg/m2 Klaudia Gomez Other [facility] Other 10-07-2022 13:30-0400 Body temperature 98 [degF] Klaudia Gomez Other [facility] Other 10-07-2022 13:30-0400 Body weight 96.07 kg Klaudia Gomez Other [facility] Other 10-07-2022 13:30-0400 Diastolic blood pressure 80 mm[Hg] Klaudia Gomez Other [facility] Other 10-07-2022 13:30-0400 Systolic blood pressure 155 mm[Hg] Klaudia Gomez Other [facility] Other 08-23-2022 16:30-0400 Body height 167.64 cm Klaudia Gomez Other [facility] Other 08-23-2022 16:30-0400 Body mass index (BMI) [Ratio] 34.05 kg/m2 Klaudia Gomez Other [facility] Other 08-23-2022 16:30-0400 Body weight 95.71 kg Klaudia Gomez Other [facility] Other 08-23-2022 16:30-0400 Diastolic blood pressure 76 mm[Hg] Klaudia Gomez Other [facility] Other 08-23-2022 16:30-0400 SaO2% (BldA) [Mass fraction] 97 % Klaudia Gomez Other [facility] Other 08-23-2022 16:30-0400 Systolic blood pressure 130 mm[Hg] Klaudia Gomez Other [facility] Other Encounters Encounter Date Encounter Type Care Provider Facility Start: 02-20-2024 End: 02-20-2024 Patient encounter procedure MD Klaudia Gomez Work Phone: [facility] Work Phone: Start: 02-20-2024 End: 02-20-2024 ambulatory Klaudia Gomez Facility:[facility] Start: 02-15-2024 End: 02-15-2024 ambulatory KLAUDIA GOMEZ Facility:[facility] Start: 02-15-2024 End: 02-15-2024 Nursing evaluation of patient and report Mervin Yoo Work Phone: Hematology/Oncology Comment on above: Iron deficiency anem ia secondary to inadequate dietary iron intake (Primary Dx) Start: 02-08-2024 Patient encounter status [facility] Start: 02-08-2024 End: 02-08-2024 Encounter for gynecological examination (general) (routine) without abnormal findings [facility] Start: 02-08-2024 End: 02-08-2024 Patient encounter procedure [facility] Work Phone: Start: 02-06-2024 End: 02-06-2024 Patient encounter procedure [facility] Cardiology Work Phone: Start: 01-18-2024 End: 01-18-2024 ambulatory KLAUDIA GOMEZ Facility:[facility] Start: 01-18-2024 End: 01-18-2024 Nursing evaluation of patient and report Mervin Yoo Work Phone: Hematology/Oncology Comment on above: Iron deficiency anem ia secondary to inadequate dietary iron intake (Primary Dx) Start: 12-21-2023 End: 12-21-2023 Nursing evaluation of patient and report Mervin Yoo Work Phone: Hematology/Oncology Comment on above: Iron deficiency anem ia secondary to inadequate dietary iron intake (Primary Dx) Start: 12-21-2023 End: 12-21-2023 Office outpatient visit 15 minutes Jose Rose MD Work Phone: Hematology/Oncology Comment on above: Anemia, unspecified type (Primary Dx); Iron deficiency anemia secondary to inadequate dietary iron intake; Megaloblastic anemia due to vitamin B12 deficiency; Folate deficiency Start: 12-21-2023 Non-patient / [facility] Work Phone: Start: 12-21-2023 End: 12-21-2023 ambulatory KLAUDIA GOMEZ Facility:[facility] Start: 11-28-2023 End: 11-28-2023 ambulatory KLAUDIA GOMEZ Facility:[facility] Start: 11-28-2023 End: 11-28-2023 Nursing evaluation of patient and report Mervin Yoo Work Phone: Hematology/Oncology Comment on above: Iron deficiency anem ia secondary to inadequate dietary iron intake (Primary Dx) Start: 11-11-2023 End: 11-11-2023 ambulatory Haresh Middleton Facility:[facility] Start: 10-31-2023 End: 10-31-2023 ambulatory KLAUDIA GOMEZ Facility:[facility] Start: 10-31-2023 End: 10-31-2023 Nursing evaluation of patient and report Mervin Yoo Work Phone: Hematology/Oncology Comment on above: Iron deficiency anem ia secondary to inadequate dietary iron intake (Primary Dx) Start: 10-31-2023 End: 10-31-2023 ambulatory TESS METCALFMIS Not Available Start: 10-03-2023 End: 10-03-2023 Nursing evaluation of patient and report Mervin Shaffer Sand Work Phone: Hematology/Oncology Comment on above: Iron deficiency anem ia secondary to inadequate dietary iron intake (Primary Dx) Start: 10-03-2023 End: 10-03-2023 ambulatory JOSE ROSE Facility:[facility] Start: 10-03-2023 End: 10-03-2023 Office outpatient visit 25 minutes Jose Rose MD Work Phone: Hematology/Oncology Comment on above: Anemia, unspecified type (Primary Dx) Start: 09-29-2023 End: 09-29-2023 ambulatory KLADUIA GOMEZ Facility:[facility] Start: 09-27-2023 Unlisted evaluation and management service Jose Rose MD Work Phone: Hematology/Oncology Comment on above: Opened In Error Start: 08-17-2023 End: 08-17-2023 Emergency department patient visit ALEXIA Eile[facility] Start: 07-11-2023 End: 07-11-2023 ambulatory Ruben Wiggins APRN.SOLUTION ANALYST Work Phone: Hematology/Oncology Comment on above: Iron deficiency anem ia secondary to inadequate dietary iron intake (Primary Dx) Start: 07-11-2023 End: 07-11-2023 Patient encounter procedure Ruben Wiggins LAB MANAGER.SOLUTION ANALYST Work Phone: [place] Start: 07-08-2023 Telephone encounter Manuel Carbajal itt [facility] Work Phone: [facility] Comment on above: Medication Follow-up (venofer) Start: 07-08-2023 Non-patient / Non-visit MD Chaya Gomez Work Phone: [facility] Cardiology Work Phone: Start: 07-08-2023 End: 07-08-2023 Admission to same day surgery center MD Klaudia Gomez Work Phone: [facility] Work Phone: Start: 07-08-2023 End: 07-08-2023 ambulatory MD Klaudia Gomez Work Phone: [facility] Work Phone: Start: 07-07-2023 Non-patient / Non-visit MD Chaya Gomez Work Phone: [facility] [employer] Work Phone: Start: 07-07-2023 End: 07-07-2023 ambulatory KLAUDIA GOMEZ Facility:[facility] Start: 07-06-2023 End: 07-06-2023 Patient encounter procedure MD Klaudia Gomez Work Phone: [facility] Work Phone: Start: 07-06-2023 End: 07-06-2023 ambulatory MD Klaudia Gomez Work Phone: [facility] Work Phone: Start: 06-23-2023 End: 06-23-2023 ambulatory Haresh Dhaliwalomia Other [facility] Other Start: 06-23-2023 Telephone encounter Haresh Middleton [facility] Start: 06-17-2023 End: 06-17-2023 Patient encounter procedure MD Klaudia Gomez Work Phone: [facility]-Electrodiagnostics Work Phone: Start: 06-17-2023 End: 06-17-2023 ambulatory MD Klaudia Gomez Work Phone: [facility] Work Phone: Start: 06-02-2023 End: 06-02-2023 ambulatory Haresh Madhuriomia Other [facility] Other Start: 06-02-2023 Office outpatient vi sit 25 minutes Haresh Emi [facility] Start: 06-02-2023 End: 06-02-2023 Patient encounter procedure MD Klaudia Gomez Work Phone: [facility]- Start: 05-13-2023 End: 05-13-2023 Patient encounter procedure MD Klaudia Gomez Work Phone: [facility]-Electrodiagnostics Work Phone: Start: 05-13-2023 End: 05-13-2023 ambulatory MD Klaudia Gomez Work Phone: [facility] Work Phone: Start: 05-12-2023 End: 05-12-2023 ambulatory Klaudia Gomez Other [facility] Other Start: 05-12-2023 Telephone encounter Klaudia Gomez [facility] Receptionist Clerk Start: 05-03-2023 End: 05-03-2023 Patient encounter procedure MD Klaudia Gomez Work Phone: [facility] Cardiology Work Phone: Start: 04-13-2023 End: 04-13-2023 ambulatory Klaudia Gomez Other [facility] Other Start: 04-13-2023 Telephone encounter Kladuia Gomez [facility] Start: 04-04-2023 Telephone encounter Klaudia Gomez [facility] Start: 04-04-2023 End: 04-04-2023 Patient encounter procedure Ruben Wiggins APRN.SOLUTION ANALYST Work Phone: [facility] Start: 04-04-2023 End: 04-04-2023 ambulatory Ruben Wiggins APRN.SOLUTION ANALYST Work Phone: Hematology/Oncology Comment on above: Iron deficiency anem ia secondary to inadequate dietary iron intake (Primary Dx) Start: 03-07-2023 End: 03-08-2023 ambulatory Chair 11 Ani Work Phone: Hematology/Oncology Comment on above: Iron deficiency anem ia secondary to inadequate dietary iron intake (Primary Dx) Start: 02-28-2023 End: 03-01-2023 ambulatory KLAUDIA GOMEZ Facility:[facility] Start: 02-21-2023 End: 02-22-2023 ambulatory Chair 12 Ani Work Phone: Hematology/Oncology Comment on above: Iron deficiency anem ia secondary to inadequate dietary iron intake (Primary Dx) Start: 02-07-2023 End: 02-07-2023 Office outpatient visit 25 minutes Jose Abhyankar MD Work Phone: Hematology/Oncology Comment on above: Iron deficiency anem ia secondary to inadequate dietary iron intake Start: 01-26-2023 End: 01-26-2023 Office outpatient new 30 minutes Jose Rose MD Work Phone: Hematology/Oncology Comment on above: Anemia, unspecified type (Primary Dx) Start: 01-21-2023 Chart abstracting Jose thakur MD Work Phone: Hematology/Oncology Start: 01-11-2023 End: 01-11-2023 ambulatory Klaudia Gomez Other [facility] Other Start: 01-11-2023 Telephone encounter Klaudia Gomez [facility] Start: 01-05-2023 End: 01-05-2023 ambulatory Klaudia Gomez Other [facility] Other Start: 01-05-2023 Office outpatient vi sit 15 minutes Klaudia Gomez [facility] Start: 12-27-2022 End: 12-27-2022 ambulatory Klaudia Gomez Other [facility] Other Start: 12-27-2022 Telephone encounter Klaudia Gomez [facility] Start: 11-19-2022 End: 11-19-2022 ambulatory Klaudia Gomez Other [facility] Other Start: 11-19-2022 Office outpatient vi sit 15 minutes Klaudia Gomez [facility] Start: 10-27-2022 End: 10-27-2022 ambulatory Klaudia Gomez Other [facility] Other Start: 10-27-2022 Telephone encounter Klaudia Gomez [facility] Start: 10-07-2022 End: 10-07-2022 ambulatory Klaudia Gomez Other [facility] Other Start: 10-07-2022 Office outpatient vi sit 15 minutes Klaudia Gomez [facility] Start: 09-02-2022 Encounter for genera l adult medical examination without abnormal findings DR KLAUDIA GOMEZ [facility] Start: 08-28-2022 End: 08-29-[address] KLAUDIA GOMEZ Facility:[facility] Start: 08-28-2022 End: 08-29-2022 Encounter for general adult medical examination without abnormal findings DR KLAUDIA GOMEZ Facility:[facility] Start: 08-23-2022 End: 08-23-2022 ambulatory Klaudia Gomez Other [facility] Other Start: 08-23-2022 Encounter for genera l adult medical examination without abnormal findings Klaudia Gomez [facility] Start: 08-23-2022 Periodic preventive med est patient 40-64yrs Klaudia Gomez [facility] Start: 03-16-2022 End: 03-17-[address] JONAS SANDERS . Facility:[facility] Start: 03-10-2022 End: 03-11-[address] KLAUDIA GOMEZ Facility:[facility] Start: 02-17-2022 Gynecological examination normal Klaudia Gomez Other [facility] Other Start: 02-17-2022 End: 02-18-[address] KLAUDIA GOMEZ Facility:[facility] Start: 12-28-2021 End: 12-28-[address] DOCTOR WASSERMAN Facility:[facility] Start: 12-25-2021 End: 12-25-2021 Adult health examination Klaudia Gomez Other [facility] Other Procedures Date Procedure Procedure Detail Performing Clinician Start: 02-20-2024 Plain X-ray of left hand MD Klaudia Gomez Work Phone: Start: 02-20-2024 Plain X-ray of left wrist MD Klaudia Gomez Work Phone: Start: 07-08-2023 CL LHC & COR Angio MD Chiara Gomez Work Phone: Start: 07-08-2023 CL Stent 1st Vessel CX CAMPOS MD Klaudia Gomez Work Phone: Start: 07-08-2023 CL Stent 1st Vessel LAD CAMPOS MD Klaudia Gomez Work Phone: Start: 07-08-2023 MD Klaudia Gomez Work Phone: Start: 06-17-2023 Radionuclide myocard ial perfusion stress study MD Klaudia Gomez Work Phone: Start: 02-09-2018 End: 06-28-2019 General examination of patient Klaudia Jason Other Start: 02-09-2018 End: 06-28-2019 Screening mammography Klaudia Jason Other Screening for malign ant neoplasm of breast Klaudia Gomez Other Screening for malign ant neoplasm of colon Klaudia Gomez Other Plan of Treatment Date Care Activity Detail Author Start: 11-21-2038 RSV Vaccine (1 - 1-d ose 75+ series) RSV Vaccine (1 - 1-dose 75+ series) [facility] Start: 12-20-2026 Diabetes Screening [facility] Start: 09-28-2026 Diabetes Screening [facility] Start: 07-07-2026 [facility] Start: 04-04-2026 Diabetes Screening [facility] Start: 02-28-2026 Diabetes Screening [facility] Start: 01-27-2026 [facility] Start: 03-14-2024 End: 03-14-2024 Nursing evaluation of patient and report Hematology/Oncology Comment on above: 12 week follow up wi th lab same day and B 12 inj-SEES SAAD- orders need signed date needs changed for B12 12 week follow up wi th lab and B12 day Start: 03-14-2024 End: 03-14-2024 Follow-up encounter 03/14/2024 2:15 PM EDT Visit (SP) Office Hematology/Oncology [address] [place] [address] [place] [address] Jose Rose MD [address] [place] [address] [place] [address] 12 week follow up with lab same day and B 12 inj Hematology/Oncology Comment on above: 12 week follow up wi th lab same day and B 12 inj Start: 03-14-2024 End: 12-20-2024 CBC W Auto Differential panel - Blood COMPLETE BLOOD COUNT AND DIFFERENTIAL Lab Routine Anemia, unspecified type Iron deficiency anemia secondary to inadequate dietary iron intake Megaloblastic anemia due to vitamin B12 deficiency Folate deficiency Expected: 03/14/2024 (Approximate), Expires: 12/20/2024 [facility] Work Phone: Comment on above: Expected: 03/14/2024 (Approximate), Expires: 12/20/2024 Start: 03-14-2024 End: 12-20-2024 Cobalamin (Vitamin B12) [Mass/volume] in Serum or Plasma VITAMIN B12 Lab Routine Anemia, unspecified type Iron deficiency anemia secondary to inadequate dietary iron intake Megaloblastic anemia due to vitamin B12 deficiency Folate deficiency Expected: 03/14/2024 (Approximate), Expires: 12/20/2024 [facility] Comment on above: Expected: 03/14/2024 (Approximate), Expires: 12/20/2024 Start: 03-14-2024 End: 12-20-2024 Comprehensive metabolic 2000 panel - Serum or Plasma COMPREHENSIVE METABOLIC PANEL Lab Routine Anemia, unspecified type Iron deficiency anemia secondary to inadequate dietary iron intake Megaloblastic anemia due to vitamin B12 deficiency Folate deficiency Expected: 03/14/2024 (Approximate), Expires: 12/20/2024 [facility] Comment on above: Expected: 03/14/2024 (Approximate), Expires: 12/20/2024 Start: 03-14-2024 End: 12-20-2024 Ferritin [Mass/volume] in Serum or Plasma FERRITIN Lab Routine Anemia, unspecified type Iron deficiency anemia secondary to inadequate dietary iron intake Megaloblastic anemia due to vitamin B12 deficiency Folate deficiency Expected: 03/14/2024 (Approximate), Expires: 12/20/2024 [facility] Comment on above: Expected: 03/14/2024 (Approximate), Expires: 12/20/2024 Start: 03-14-2024 End: 12-20-2024 Folate [Mass/volume] in Serum or Plasma FOLATE, SERUM Lab Routine Anemia, unspecified type Iron deficiency anemia secondary to inadequate dietary iron intake Megaloblastic anemia due to vitamin B12 deficiency Folate deficiency Expected: 03/14/2024 (Approximate), Expires: 12/20/2024 [facility] Comment on above: Expected: 03/14/2024 (Approximate), Expires: 12/20/2024 Start: 03-14-2024 End: 12-20-2024 Iron and Iron binding capacity panel - Serum or Plasma IRON AND TIBC Lab Routine Anemia, unspecified type Iron deficiency anemia secondary to inadequate dietary iron intake Megaloblastic anemia due to vitamin B12 deficiency Folate deficiency Expected: 03/14/2024 (Approximate), Expires: 12/20/2024 [facility] Comment on above: Expected: 03/14/2024 (Approximate), Expires: 12/20/2024 Start: 03-14-2024 End: 06-13-2024 Lactate dehydrogenase [Enzymatic activity/volume] in Serum or Plasma LACTATE DEHYDROGENASE Lab Routine Anemia, unspecified type Iron deficiency anemia secondary to inadequate dietary iron intake Megaloblastic anemia due to vitamin B12 deficiency Folate deficiency Expected: 03/14/2024 (Approximate), Expires: 06/13/2024 [facility] Comment on above: Expected: 03/14/2024 (Approximate), Expires: 06/13/2024 Start: 03-14-2024 End: 03-14-2024 Patient encounter procedure 03/14/2024 2:00 PM EDT Office Visit [facility] [address] [place] [address] [place] [address] 12 week follow up with lab same day and B 12 inj [facility] Comment on above: 12 week follow up wi th lab same day and B 12 inj Start: 03-14-2024 End: 06-13-2024 RETICULOCYTE COUNT RETICULOCYTE COUNT Lab Routine Anemia, unspecified type Iron deficiency anemia secondary to inadequate dietary iron intake Megaloblastic anemia due to vitamin B12 deficiency Folate deficiency Expected: 03/14/2024 (Approximate), Expires: 06/13/2024 [facility] Comment on above: Expected: 03/14/2024 (Approximate), Expires: 06/13/2024 Start: 02-15-2024 End: 02-15-2024 Nursing evaluation of patient and report 02/15/2024 2:30 PM EDT Nurse Visit Hematology/Oncology [address] [place] [address] Mervin Yoo Nurse Edmund [address] [place] [address] 12 week follow up with lab same day and B 12 inj-SEES SAAD-orders need signed date needs changed for B12 Hematology/Oncology Comment on above: 12 week follow up wi th lab same day and B 12 inj-SEES SAAD- orders need signed date needs changed for B12 Start: 02-08-2024 Patient referral [facility] Work Phone: Start: 01-18-2024 End: 01-18-2024 Nursing evaluation of patient and report 01/18/2024 2:30 PM EDT Nurse Visit Hematology/Oncology [address] [place] [address] [place] [address] Mervin Yoo Nurse Edmund [address] [place] [address] [place] [address] 12 week follow up with lab same day and B 12 inj-SEES SAAD-orders need signed date needs changed for B12 Hematology/Oncology Comment on above: 12 week follow up wi th lab same day and B 12 inj-SEES SAAD- orders need signed date needs changed for B12 Start: 01-15-2024 Covid-19 Vaccine ( season) Covid-19 Vaccine ( season) [facility] Start: 01-15-2024 Covid-19 Vaccine ( season) Covid-19 Vaccine ( season) [facility] Start: 01-15-2024 Influenza vaccination Influenza Vacc ine (#1) [facility] Start: 12-26-2023 End: 12-26-2023 Nursing evaluation of patient and report 12/26/2023 2:15 PM EDT Nurse Visit Hematology/Oncology [address] [place] [place] [address] Mervin Yoo Nurse Edmund [address] [place] [address] 12 week follow up with lab same day and B 12 inj [facility]ology[facility]On[facility] Comment on above: 12 week follow up wi th lab same day and B 12 inj Start: 12-26-2023 End: 10-02-2024 CBC W Auto Differential panel - Blood COMPLETE BLOOD COUNT AND DIFFERENTIAL Lab Routine Anemia, unspecified type Expected: 12/26/2023 (Approximate), Expires: 10/02/2024 [facility] Work Phone: Comment on above: Expected: 12/26/2023 (Approximate), Expires: 10/02/2024 Start: 12-26-2023 End: 10-02-2024 Cobalamin (Vitamin B12) [Mass/volume] in Serum or Plasma VITAMIN B12 Lab Routine Anemia, unspecified type Expected: 12/26/2023 (Approximate), Expires: 10/02/2024 [facility] Comment on above: Expected: 12/26/2023 (Approximate), Expires: 10/02/2024 Start: 12-26-2023 End: 10-02-2024 Comprehensive metabolic 2000 panel - Serum or Plasma COMPREHENSIVE METABOLIC PANEL Lab Routine Anemia, unspecified type Expected: 12/26/2023 (Approximate), Expires: 10/02/2024 [facility] Comment on above: Expected: 12/26/2023 (Approximate), Expires: 10/02/2024 Start: 12-26-2023 End: 10-02-2024 Ferritin [Mass/volume] in Serum or Plasma FERRITIN Lab Routine Anemia, unspecified type Expected: 12/26/2023 (Approximate), Expires: 10/02/2024 [facility] Comment on above: Expected: 12/26/2023 (Approximate), Expires: 10/02/2024 Start: 12-26-2023 End: 10-02-2024 Folate [Mass/volume] in Serum or Plasma FOLATE, SERUM Lab Routine Anemia, unspecified type Expected: 12/26/2023 (Approximate), Expires: 10/02/2024 [facility] Comment on above: Expected: 12/26/2023 (Approximate), Expires: 10/02/2024 Start: 12-26-2023 End: 12-26-2023 Follow-up encounter 12/26/2023 2:00 PM EDT Visit (SP) Office Hematology/Oncology [address] [place] [address] Jose Rose MD [address] [place] [address] 12 week follow up with lab same day and B 12 inj H[facility]ology[facility] Comment on above: 12 week follow up wi th lab same day and B 12 inj Start: 12-26-2023 End: 10-02-2024 Iron and Iron binding capacity panel - Serum or Plasma IRON AND TIBC Lab Routine Anemia, unspecified type Expected: 12/26/2023 (Approximate), Expires: 10/02/2024 [facility] Comment on above: Expected: 12/26/2023 (Approximate), Expires: 10/02/2024 Start: 12-26-2023 End: 12-26-2023 Patient encounter procedure 12/26/2023 1:45 PM EDT Office Visit [facility] [address] [place] [address] 12 week follow up with lab same day and B 12 inj [facility] Comment on above: 12 week follow up wi th lab same day and B 12 inj Start: 12-21-2023 End: 12-21-2023 Nursing evaluation of patient and report 12/21/2023 3:00 PM EDT Nurse Visit Hematology/Oncology [address] [place] [address] Mervin Yoo Nurse Edmund [address] [place] [address] 12 week follow up with lab same day and B 12 inj Hematology/Oncology Comment on above: 12 week follow up wi th lab same day and B 12 inj Start: 12-21-2023 End: 12-21-2023 Follow-up encounter 12/21/2023 2:30 PM EDT Visit (SP) Office Hematology/Oncology [address] [place] [address] Jose Rose MD [address] [place] [address] 12 week follow up with lab same day and B 12 inj Hematology/Oncology Comment on above: 12 week follow up wi th lab same day and B 12 inj Start: 12-21-2023 End: 12-21-2023 Patient encounter procedure 12/21/2023 2:15 PM EDT Office Visit [facility] [address] [place] [place] [address] 12 week follow up with lab same day and B 12 inj [facility] Comment on above: 12 week follow up wi th lab same day and B 12 inj Start: 11-28-2023 End: 11-28-2023 Nursing evaluation of patient and report 11/28/2023 2:00 PM EDT Nurse Visit Hematology/Oncology [address] [place] [address] Mervin Yoo Nurse Edmund [address] [place] [address] B12 q 4 weeks H[facility]ology[facility]Oncology Comment on above: B12 q 4 weeks Start: 2023 RSV Vaccine (1 - 1-d ose 60+ series) RSV Vaccine (1 - 1-dose 60+ series) [facility] Start: 10-31-2023 End: 10-31-2023 Nursing evaluation of patient and report 10/31/2023 2:00 PM EDT Nurse Visit Hematology/Oncology [address] [place] [address] [place] [address] Mervin Yoo Nurse Edmund [address] [place] [place] [address] B12 q 4 weeks Hematology/Oncology Comment on above: B12 q 4 weeks Start: 07-08-2023 [facility] Start: 06-17-2023 Radionuclide myocard ial perfusion stress study NM talha perf SPECT rest & str [facility] Start: 06-17-2023 SPECT Heart perfusio n at rest and W stress and W radionuclide IV [facility] Start: 05-16-2023 Behavioral Health Screening Behavioral Health Screening [facility] Start: 05-16-2023 Depression Assessment Depression Ass essment [facility] Start: 03-16-2023 Screening for malign ant neoplasm of breast Mammogram Screening [facility] Start: 02-28-2023 End: 02-08-2024 CBC W Auto Differential panel - Blood CBC + DIFF Lab Routine Iron deficiency anemia secondary to inadequate dietary iron intake Expected: 02/28/2023 (Approximate), Expires: 02/08/2024 [facility] Work Phone: Comment on above: Expected: 02/28/2023 (Approximate), Expires: 02/08/2024 Start: 02-28-2023 End: 02-08-2024 Cobalamin (Vitamin B12) [Mass/volume] in Serum or Plasma VITAMIN B12 BLOOD Lab Routine Iron deficiency anemia secondary to inadequate dietary iron intake Expected: 02/28/2023 (Approximate), Expires: 02/08/2024 [facility] Work Phone: Comment on above: Expected: 02/28/2023 (Approximate), Expires: 02/08/2024 Start: 02-28-2023 End: 02-08-2024 Comprehensive metabolic 2000 panel - Serum or Plasma COMP METABOLIC PANEL Lab Routine Iron deficiency anemia secondary to inadequate dietary iron intake Expected: 02/28/2023 (Approximate), Expires: 02/08/2024 [facility] Work Phone: Comment on above: Expected: 02/28/2023 (Approximate), Expires: 02/08/2024 Start: 02-28-2023 End: 02-08-2024 Ferritin [Mass/volume] in Serum or Plasma FERRITIN BLD Lab Routine Iron deficiency anemia secondary to inadequate dietary iron intake Expected: 02/28/2023 (Approximate), Expires: 02/08/2024 [facility] Work Phone: Comment on above: Expected: 02/28/2023 (Approximate), Expires: 02/08/2024 Start: 02-28-2023 End: 02-08-2024 Folate [Mass/volume] in Serum or Plasma FOLATE SERUM Lab Routine Iron deficiency anemia secondary to inadequate dietary iron intake Expected: 02/28/2023 (Approximate), Expires: 02/08/2024 [facility] Work Phone: Comment on above: Expected: 02/28/2023 (Approximate), Expires: 02/08/2024 Start: 02-28-2023 End: 02-08-2024 Iron and Iron binding capacity panel - Serum or Plasma IRON + TIBC Lab Routine Iron deficiency anemia secondary to inadequate dietary iron intake Expected: 02/28/2023 (Approximate), Expires: 02/08/2024 [facility] Work Phone: Comment on above: Expected: 02/28/2023 (Approximate), Expires: 02/08/2024 Start: 01-14-2023 Covid-19 Vaccine () Covid-19 Vaccine () [facility] Start: 01-14-2023 Influenza vaccination C [facility] Start: 05-16-2022 DEPRESSION ASSESSMENT DEPRESSION ASS ESSMENT [facility] Start: 11-21-2013 SHINGRIX VACCINE (1 of 2) SHINGRIX VACCINE (1 of 2) [facility] Start: 11-21-2008 COLOGUARD (FIT-DNA) COLOGUARD (FIT-D NA) [facility] Start: 11-21-2008 Colonoscopy COLONOSCOPY [facility] Start: 11-21-2008 COLORECTAL CANCER SCREENING COLORECTAL CANCER SCREENING [facility] Start: 11-21-[address] COLONOGRAPHY [facility] Start: 11-21-2008 DIABETES SCREEN DIABETES SCREEN [facility] Start: 11-21-2008 FECAL OCCULT BLOOD FECAL OCCULT BLOO D [facility] Start: 11-21-2008 Lipid 1996 panel - S chris or Plasma Lipid Screening [facility] Start: 11-21-2008 Lipid panel Lipid Screening [facility] Start: 11-21-2008 LIPID SCREEN LIPID SCREEN [facility] Start: 11-21-2008 Screening for malign ant neoplasm of colon [facility] Start: 11-21-2008 SIGMOIDOSCOPY SIGMOIDOSCOPY [facility] Start: 2003 Mammography [facility] Start: 11-21-1993 HPV TESTING HPV TESTING [facility] Start: 11-21-1993 Screening for malign ant neoplasm of cervix HPV Testing [facility] Start: 11-21-1984 PAP TESTING PAP TESTING [facility] Start: 11-21-1984 Screening for malign ant neoplasm of cervix [facility] Start: 11-21-1982 Urine microalbumin profile [facility] Start: 11-21-1981 Anxiety Screening Anxiety Screening [facility] Start: 11-21-1981 Depression Screening Depression Scre ening [facility] Start: 11-21-1981 HEPATITIS C SCREENING HEPATITIS C [facility] Start: 11-21-1981 Hepatitis C screening Hepatitis C [facility] Start: 11-21-1981 HIV SCREENING HIV SCREENING [facility] Start: 11-21-1981 HIV screening HIV Screening [facility] Start: 05-24-1964 COVID-19 VACCINE (#1) COVID-19 VACCI NE (#1) [facility] End: 01-26-2024 CBC W Auto Differential panel - Blood CBC + DIFF Lab Routine Anemia, unspecified type Every 6 weeks for 4 Occurrences starting 01/26/2023 until 01/26/2024, 1 completed [facility] Work Phone: Comment on above: Every 6 weeks for 4 Occurrences starting 01/26/2023 until 01/26/2024, 1 completed End: 01-26-2024 Cobalamin (Vitamin B12) [Mass/volume] in Serum or Plasma VITAMIN B12 BLOOD Lab Routine Anemia, unspecified type Every 6 weeks for 4 Occurrences starting 01/26/2023 until 01/26/2024, 1 completed [facility] Work Phone: Comment on above: Every 6 weeks for 4 Occurrences starting 01/26/2023 until 01/26/2024, 1 completed End: 01-26-2024 Comprehensive metabolic 2000 panel - Serum or Plasma COMP METABOLIC PANEL Lab Routine Anemia, unspecified type Every 6 weeks for 4 Occurrences starting 01/26/2023 until 01/26/2024, 1 completed [facility] Work Phone: Comment on above: Every 6 weeks for 4 Occurrences starting 01/26/2023 until 01/26/2024, 1 completed Comprehensive metabo lic 2000 panel - Serum or Plasma [facility] End: 01-26-2024 Ferritin [Mass/volume] in Serum or Plasma FERRITIN BLD Lab Routine Anemia, unspecified type Every 6 weeks for 4 Occurrences starting 01/26/2023 until 01/26/2024, 1 completed [facility] Work Phone: Comment on above: Every 6 weeks for 4 Occurrences starting 01/26/2023 until 01/26/2024, 1 completed End: 01-26-2024 Folate [Mass/volume] in Serum or Plasma FOLATE SERUM Lab Routine Anemia, unspecified type Every 6 weeks for 4 Occurrences starting 01/26/2023 until 01/26/2024, 1 completed [facility] Work Phone: Comment on above: Every 6 weeks for 4 Occurrences starting 01/26/2023 until 01/26/2024, 1 completed End: 01-26-2024 Iron and Iron binding capacity panel - Serum or Plasma IRON + TIBC Lab Routine Anemia, unspecified type Every 6 weeks for 4 Occurrences starting 01/26/2023 until 01/26/2024, 1 completed [facility] Work Phone: Comment on above: Every 6 weeks for 4 Occurrences starting 01/26/2023 until 01/26/2024, 1 completed Microalbumin [Mass/volume] in Urine [facility] Patient referral [facility] Work Phone: End: 01-26-2024 RETIC COUNT RETIC COUNT Lab Routine Anemia, unspecified type Every 6 weeks for 4 Occurrences starting 01/26/2023 until 01/26/2024, 1 completed [facility] Work Phone: Comment on above: Every 6 weeks for 4 Occurrences starting 01/26/2023 until 01/26/2024, 1 completed [facility] Immunizations Immunization Date Immunization Notes Care Provider [facility] 02-22-2023 Influenza, injectabl e, Madin Lin Canine Kidney, preservative free, quadrivalent Jose Rose MD Work Phone: [facility] 02-22-2023 influenza virus vaccine, unspecified formulation Mervin Yoo Work Phone: [facility] 10-07-2020 COVID-19 [id number].S (Jonny) MD Klaudia Gomez Work Phone: [facility] Payers Date Payer Category Payer Self-pay [id number] 2011 Unknown [employer]UE C[employer] PPO OOS [id number] 2011-Present [phone] [address] [place] [address] PPO [id number] 1963 Unknown [id number] [id number] 1963 Unknown [id number]. 593 1963 Unknown [id number]. 593 1963 Unknown [id number]. 593 1963 Unknown [id number]. 1286 1963 Unknown [id number]. 1259 1959 Blue Cross Blue Shield [id number] Unknown [id number]. 593 Unknown [id number] [id number]. 531 Unknown [id number]. 531 Unknown [id number]. 531 Unknown [id number]. 531 Unknown [id number]. 531 Unknown [id number]. 531 Social History Date Type Detail Facility Unknown if ever smoked [facility] Start: 01-26-2023 End: 01-27-2023 Sex Assigned At [facility] Tobacco smoking status ILIS Tobacco smoking consumption unknown [facility] Start: 01-21-2023 End: 02-21-2023 Alcohol intake Current drinker of alcohol (finding) [facility] Start: 1965 Sex Assigned At Not on file [facility] Start: 01-26-2023 End: 07-26-2023 Tobacco smoking status ILIS Never smoked tobacco [facility] Start: 01-26-2023 Tobacco use and exposure Smokeless tobacco non-user [facility] Start: 01-26-2023 End: 01-27-2023 History of Social function [facility] National Score (1-100), lower number is lower risk 78 [facility] Start: 1965 Sex Assigned At Female F [facility] Medical Equipment Procedure Code Equipment Code Equipment Origin al Text Equipment Identifier Dates Start: 09-30-2022 CL STENT KEENAN FRONTIER 2.75 X 15 FDA Start: 07-08-2023 CL STENT KEENAN FRONTIER 3.5 X 18 FDA Start: 07-08-2023 CL STENT KEENAN FRONTIER 2.75 X 15 FDA Start: 07-08-2023 CL STENT KEENAN FRONTIER 3.5 X 18 FDA Start: 07-08-2023 Goals Date Patient Goal Desired Activity /State Functional Status Date Assessment Result Facility 07-08-2023 Functional status Patient at Baseline [facility] Work Phone: Mental Status Date Assessment Result Facility 07-08-2023 Cognitive function Cognitive Sta tus Patient at Baseline [facility] Work Phone: Clinical Notes 08-23-2022 to 02-15-2024 Mariela Sarmiento MA - 02/15/2024 2:49 PM EDTMariela Sarmiento MA - 02/15/2024 2:49 PM Katina Calabrese MA - 01/18/2024 3:22 PM Dangelo Kaye MA - 12/21/2023 3:06 PM EDT Note Date & Type Note Facility 02-15-2024 Nurse Note Patient Identification confirmed: yes. Injection given and documented on MAR per provider order. Mariela Sarmiento MA [facility] 02-15-2024 Nurse Note Patient Identification confirmed: yes. Injection given and documented on MAR per provider order. Mariela Sarmiento MA documented in this encounter [facility] 02-08-2024 Hospital Discharge instructions Ambulatory OrdersReferral to Gastroenterology Time Frame: 02/08/24, Location: None SelectedReferral to BRAZING MACHINE OPERATOR Time Frame: 02/08/24, Location: None SelectedReferral to Orthopedics Time Frame: 02/08/24, Location: None Selected [facility] Work Phone: 01-18-2024 Nurse Note Patient Identification confirmed: yes. Injection given and documented on MAR per provider order. Katina Howe MA [facility] 12-21-2023 Nurse Note Patient Identification confirmed: yes. Injection given and documented on MAR per provider order. Dangelo Umanzor MA [facility] 12-21-2023 Nurse Note Patient Identification confirmed: yes. Injection given and documented on MAR per provider order. Dangelo Umanzor MA documented in this encounter [facility] 12-21-2023 Instructions Jose Rose MD - 12/21/2023 2:52 PM EDT B12 today and q 4 weeks Continue folic acid RTC in 12 weeks Labs same day documented in this encounter [facility] 12-21-2023 History of Present illness Narrative Images from the original note were not included. NAME: Jeannette Hurtado CLINIC NO.: [id number] DATE OF SERVICE: December 21, 2023 (José) Some elements in this clinic note that are critical to medical decision making have been carefully reviewed and included from a prior clinic note dated: October 03, 2023 (José) Referring Provider: Dr. Klaudia Gomez Additional Clinicians involved in Jeannette Hurtado's care: DIAGNOSIS: Anemia, fatigue ASSESSMENT: 58 year old woman with anemia and associated fatigue. She has obstructive sleep apnea but is compliant with CPAP. We advised her to have a cardiac workup done because the degree of anemia did not match the degree of fatigue. She ended up failing a stress test and now has two coronary stents. Fatigue has improved overall with B12 and folate replacement. Mild decrease in Hgb but symptoms have improved so we will observe. PLAN: B12 today and q 4 weeks Continue folic acid RTC in 12 weeks Labs same day HPI: CASE HISTORY: Reverse Chronological Order 01/05/2023 - CBC 9.2 > 11.2 / 35.6 < 277 11/12/2022 - Colonoscopy is negative. Recommended colonoscopy 10 years. Updated Visit, December 21, 2023: Doing better overall. B12 and folic acid have made a big difference. Cardiology with stents also helped and she still uses her CPAP. Updated Visit, October 03, 2023: Adalgisa returns today for a follow up. She had stents placed after cardiology workup, although she is still fatigued. I recommended trying B12 injections and folic acid supplements. She remains compliant with her CPAP. Hgb: 12.9 on 09/28. She can also consider a women's health evaluation for hormone replacement / balancing that is offered by [facility]. Updated Visit, July 11, 2023: Jeannette Hurtado returns for scheduled follow-up. Since her last visit there has been no significant medical changes. She offers no new complaints today. No new issues, problems or concerns. She denies bleeding and abnormal bruising. Updated Visit, April 04, 2023: 02/14/2023 Patient called in stating that after taking the oral iron for 1 week she was having nausea, vomiting x1 and diarrhea. Patient stopped medication. Her next appointment was for labs only to see how the oral was working, followed by a virtual visit. Would you like her switched to a regular visit to discuss IV iron? Mechelle Gomez RN Jeannette Hurtado returns for scheduled follow-up. She received IV Venofer 300 mg on 02/21/2023, 02/28/2023 and 03/07/2023. She tolerated the IV iron infusions well. She states that her fatigue is only slightly improved. The brain fog is not much better. She remains off of oral iron. She denies any bleeding or abnormal bruising. Updated Visit, February 07, 2023: Iron deficiency identified.will trial oral iron and see if it helpd otherwise iv iron. Very fatigued. Reviewed all laboratories with her. Would consider IV iron therapy. Initial Visit, January 26, 2023: Jeannette Hurtado presents today Hematology and Oncology evaluation. She is a 57 year old female who presents on consultation for anemia. Hemoglobin in August 2022 was 11 but she presents with progressive fatigue even though she is compliant with CPAP. While anemia is mild and seem to have progressed and worsened. I reviewed outside laboratories but I do not have access to iron studies or ferritin. REVIEW OF SYSTEMS Per HPI and otherwise negative by full review of organ systems. ECOG PERFORMANCE STATUS: 1 PHYSICAL EXAMINATION: Vitals: BP 171/79 Pulse 58 Temp (Src) 97.2 (Temporal) Resp 16 Ht 5' 5.984 (1.68m) Wt 197 lb 15.6 oz (89.8kg) SpO2 98% BMI 31.97 kg/(m^2). Body surface area is 2.04 meters squared. Exam limited to gross visualization where appropriate. Gen.: This is an age-appropriate patient in no acute distress. Head: Appears atraumatic with no visible lesions. Eyes: Pupils equally round and reactive to light, extraocular muscles are intact. Neck: Supple. Respiratory: Appears to be respiring comfortably. Neurologic: Nonfocal to gross visualization. Alert and oriented 3. Psychiatric: No evidence of inappropriate anxiety or depression. Skin: Visible areas of skin without rash, lesions, wounds or petechiae. ALLERGIES: ALLERGIES Allergen Reactions Compazine [Prochlor* Latex Unknown MEDICATIONS: celecoxib (CELEBREX) 200 mg capsule aspirin, enteric coated (ASPIRIN, ENTERIC COATED) 81 mg EC tablet Take 81 mg by mouth. atorvastatin (LIPITOR) 40 mg tablet Atorvastatin Active 40 MG PO Daily July 08, 2023 12:00am lisinopril (ZESTRIL) 5 mg tablet Take 5 mg by mouth once daily. nitroglycerin sublingual (NITROQUICK) 0.4 mg SL tablet Dissolve 0.4 mg under the tongue at bedtime as needed. ticagrelor (BRILINTA) 90 mg tablet Take 90 mg by mouth two times a day. B-complex with vitamin C (VITAMIN B COMPLEX-C ORAL) Take by mouth. ascorbic acid (VITAMIN C ORAL) Take by mouth. sertraline (ZOLOFT) 25 mg tablet Take 25 mg by mouth once daily. esomeprazole (NEXIUM) 20 mg capsule Take 20 mg by mouth once daily. metFORMIN (GLUCOPHAGE) 1,000 mg tablet Take 1,000 mg by mouth twice daily with meals. albuterol HFA (PROVENTIL HFA) inhaler Inhale 2 Puffs as instructed every 6 hours as needed for wheezing/shortness of breath. folic acid 1 mg tablet Take 1 tablet by mouth once daily. LABORATORY VALUES: WBC (k/uL) Date Value 12/21/2023 8.13 RBC (m/uL) Date Value 12/21/2023 3.83 (L) Hemoglobin (g/dL) Date Value 12/21/2023 11.8 Hematocrit (%) Date Value 12/21/2023 36.3 MCV (fL) Date Value 12/21/2023 94.8 MCH (pg) Date Value 12/21/2023 30.8 MCHC (g/dL) Date Value 12/21/2023 32.5 RDW-CV (%) Date Value 12/21/2023 12.5 Platelet Count (k/uL) Date Value 12/21/2023 200 MPV (fL) Date Value 12/21/2023 9.8 Glucose (mg/dL) Date Value 12/21/2023 115 (H) BUN (mg/dL) Date Value 12/21/2023 15 Creatinine (mg/dL) Date Value 12/21/2023 0.86 Sodium (mmol/L) Date Value 12/21/2023 138 Potassium (mmol/L) Date Value 12/21/2023 4.5 Chloride (mmol/L) Date Value 12/21/2023 100 CO2 (mmol/L) Date Value 12/21/2023 24 Protein, Total (g/dL) Date Value 12/21/2023 6.6 Albumin (g/dL) Date Value 12/21/2023 4.3 Calcium, Total (mg/dL) Date Value 12/21/2023 9.5 Alkaline Phosphatase (U/L) Date Value 12/21/2023 105 Bilirubin, Total (mg/dL) Date Value 12/21/2023 0.3 AST (U/L) Date Value 12/21/2023 33 ALT (U/L) Date Value 12/21/2023 30 DIAGNOSIS: (D64.9) Anemia, unspecified type (primary encounter diagnosis) Plan: folic acid 1 mg tablet, COMPLETE BLOOD COUNT AND DIFFERENTIAL, COMPREHENSIVE METABOLIC PANEL, IRON AND TIBC, FERRITIN, VITAMIN B12, FOLATE, SERUM, RETICULOCYTE COUNT, LACTATE DEHYDROGENASE (D50.8) Iron deficiency anemia secondary to inadequate dietary iron intake Plan: COMPLETE BLOOD COUNT AND DIFFERENTIAL, COMPREHENSIVE METABOLIC PANEL, IRON AND TIBC, FERRITIN, VITAMIN B12, FOLATE, SERUM, RETICULOCYTE COUNT, LACTATE DEHYDROGENASE (D53.1) Megaloblastic anemia due to vitamin B12 deficiency Plan: COMPLETE BLOOD COUNT AND DIFFERENTIAL, COMPREHENSIVE METABOLIC PANEL, IRON AND TIBC, FERRITIN, VITAMIN B12, FOLATE, SERUM, RETICULOCYTE COUNT, LACTATE DEHYDROGENASE (E53.8) Folate deficiency Plan: COMPLETE BLOOD COUNT AND DIFFERENTIAL, COMPREHENSIVE METABOLIC PANEL, IRON AND TIBC, FERRITIN, VITAMIN B12, FOLATE, SERUM, RETICULOCYTE COUNT, LACTATE DEHYDROGENASE PAST MEDICAL HISTORY No date: Anemia No date: Anxiety No date: Elevated glucose No date: Hypercholesteremia No date: Hypothyroidism 02/07/2023: Iron deficiency anemia secondary to inadequate dietary iron intake No date: Migraines PAST SURGICAL HISTORY 10/2022: COLONOSCOPY No date: PAST SURGICAL HISTORY OF Comment: Bilateral sweat glands removed No date: PAST SURGICAL HISTORY OF; Left Comment: Foot tendon x2 Social History Tobacco Use Smoking status: Never Smokeless tobacco: Never Vaping Use Vaping Use: Never used Substance Use Topics Alcohol use: Yes Drug use: Never FAMILY HISTORY Problem Relation Age of Onset Hypertension Mother Mental illness Mother Cancer Father Hypertension Father Heart disease Father I spent a total of 20 minutes on the date of service which included preparing to see the patient, [id number] patient care, completing clinical documentation, performing a medically appropriate examination, counseling and educating the patient/family/caregiver, ordering medications, tests, or procedures, independently interpreting results (not separately reported), communicating results to the patient/family/caregiver, and care coordination (not separately reported). Jose Rose MD, CPE Hematology and Oncology Services Provided at: [place], [place] CC: Klaudia Gomez MD [address] [place] [phone] documented in this encounter [facility] 12-21-2023 Note HNO ID: [id number] Author: JOSE ROSE MD Service: ? Author Type: Physician Type: Progress Notes Filed: 12/24/2023 12:21 Note Text: NAME: GenesisJeannette CLINIC NO.: [id number] DATE OF SERVICE: December 21, 2023 (José) Some elements in this clinic note that are critical to medical decision making have been carefully reviewed and included from a prior clinic note dated: October 03, 2023 (José) Referring Provider: Dr. Klaudia Gomez Additional Clinicians involved in Jeannette Hurtado's care: DIAGNOSIS: Anemia, fatigue ASSESSMENT: 58 year old woman with anemia and associated fatigue. She has obstructive sleep apnea but is compliant with CPAP. We advised her to have a cardiac workup done because the degree of anemia did not match the degree of fatigue. She ended up failing a stress test and now has two coronary stents. Fatigue has improved overall with B12 and folate replacement. Mild decrease in Hgb but symptoms have improved so we will observe. PLAN: B12 today and q 4 weeks Continue folic acid RTC in 12 weeks Labs same day HPI: CASE HISTORY: Reverse Chronological Order 01/05/2023 - CBC 9.2 > 11.2 / 35.6 < 277 11/12/2022 - Colonoscopy is negative. Recommended colonoscopy 10 years. Updated Visit, December 21, 2023: Doing better overall. B12 and folic acid have made a big difference. Cardiology with stents also helped and she still uses her CPAP. Updated Visit, October 03, 2023: Adalgisa returns today for a follow up. She had stents placed after cardiology workup, although she is still fatigued. I recommended trying B12 injections and folic acid supplements. She remains compliant with her CPAP. Hgb: 12.9 on 09/28. She can also consider a women's health evaluation for hormone replacement / balancing that is offered by [facility]. Updated Visit, July 11, 2023: Jeannette Hurtado returns for scheduled follow-up. Since her last visit there has been no significant medical changes. She offers no new complaints today. No new issues, problems or concerns. She denies bleeding and abnormal bruising. Updated Visit, April 04, 2023: 02/14/2023 Patient called in stating that after taking the oral iron for 1 week she was having nausea, vomiting x1 and diarrhea. Patient stopped medication. Her next appointment was for labs only to see how the oral was working, followed by a virtual visit. Would you like her switched to a regular visit to discuss IV iron? FIORDALIZA Wallace returns for scheduled follow-up. She received IV Venofer 300 mg on 02/21/2023, 02/28/2023 and 03/07/2023. She tolerated the IV iron infusions well. She states that her fatigue is only slightly improved. The brain fog is not much better. She remains off of oral iron. She denies any bleeding or abnormal bruising. Updated Visit, February 07, 2023: Iron deficiency identified.will trial oral iron and see if it helpd otherwise iv iron. Very fatigued. Reviewed all laboratories with her. Would consider IV iron therapy. Initial Visit, January 26, 2023: Jeannette Hurtado presents today Hematology and Oncology evaluation. She is a 57 year old female who presents on consultation for anemia. Hemoglobin in August 2022 was 11 but she presents with progressive fatigue even though she is compliant with CPAP. While anemia is mild and seem to have progressed and worsened. I reviewed outside laboratories but I do not have access to iron studies or ferritin. REVIEW OF SYSTEMS Per HPI and otherwise negative by full review of organ systems. ECOG PERFORMANCE STATUS: 1 PHYSICAL EXAMINATION: Vitals: BP 171/79 Pulse 58 Temp (Src) 97.2 (Temporal) Resp 16 Ht 5' 5.984 (1.68m) Wt 197 lb 15.6 oz (89.8kg) SpO2 98% BMI 31.97 kg/(m2). Body surface area is 2.04 meters squared. Exam limited to gross visualization where appropriate. Gen.: This is an age-appropriate patient in no acute distress. Head: Appears atraumatic with no visible lesions. Eyes: Pupils equally round and reactive to light, extraocular muscles are intact. Neck: Supple. Respiratory: Appears to be respiring comfortably. Neurologic: Nonfocal to gross visualization. Alert and oriented ?3. Psychiatric: No evidence of inappropriate anxiety or depression. Skin: Visible areas of skin without rash, lesions, wounds or petechiae. ALLERGIES: ALLERGIES Allergen Reactions Compazine [Prochlor* Latex Unknown MEDICATIONS: celecoxib (CELEBREX) 200 mg capsule aspirin, enteric coated (ASPIRIN, ENTERIC COATED) 81 mg EC tablet Take 81 mg by mouth. sonali (more content not included)... [facility] 11-28-2023 Nurse Note Patient Identification confirmed: yes. Injection given and documented on MAR per provider order. Mariela Sarmiento MA [facility] 11-28-2023 Nurse Note Patient Identification confirmed: yes. Injection given and documented on MAR per provider order. Mariela Sarmiento MA documented in this encounter [facility] 10-03-2023 Nurse Note Patient Identification confirmed: yes. Injection given and documented on MAR per provider order. Katina Howe MA [facility] 10-03-2023 Instructions Cecily Merlos - 10/03/2023 1:46 PM EDT B12 today and q 4 weeks Rx sent for folic acid RTC in 12 weeks Labs same day documented in this encounter [facility] 10-03-2023 Nurse Note Patient states that she is exhausted. Mariela Sarmiento MA [facility] 10-03-2023 Nurse Note Patient states that she is exhausted. Mariela Sarmiento MA documented in this encounter [facility] 10-03-2023 History of Present illness Narrative Images from the original note were not included. NAME: Jeannette Hurtado CLINIC NO.: [id number] DATE OF SERVICE: October 03, 2023 (José) Some elements in this clinic note that are critical to medical decision making have been carefully reviewed and included from a prior clinic note dated: July 11, 2022 ([place]) Referring Provider: Dr. Klaudia Gomez Additional Clinicians involved in Jeannette Hurtado's care: DIAGNOSIS: Anemia, fatigue ASSESSMENT: 57 year old woman with anemia and associated fatigue. She has obstructive sleep apnea but is compliant with CPAP. We advised her to have a cardiac workup done because the degree of anemia did not match the degree of fatigue. She ended up failing a stress test and now has two coronary stents. Unfortunately she is still fatigued. PLAN: B12 today and q 4 weeks Rx sent for folic acid RTC in 12 weeks Labs same day HPI: CASE HISTORY: Reverse Chronological Order 01/05/2023 - CBC 9.2 > 11.2/35.6 < 277 11/12/2022 - Colonoscopy is negative. Recommended colonoscopy 10 years. Updated Visit, October 03, 2023: Adalgisa returns today for a follow up. She had stents placed after cardiology workup, although she is still fatigued. I recommended trying B12 injections and folic acid supplements. She remains compliant with her CPAP. Hgb: 12.9 on 09/28. She can also consider a women's health evaluation for hormone replacement / balancing that is offered by [facility]. Updated Visit, July 11, 2023: Jeannette Hurtado returns for scheduled follow-up. Since her last visit there has been no significant medical changes. She offers no new complaints today. No new issues, problems or concerns. She denies bleeding and abnormal bruising. Updated Visit, April 04, 2023: 02/14/2023 Patient called in stating that after taking the oral iron for 1 week she was having nausea, vomiting x1 and diarrhea. Patient stopped medication. Her next appointment was for labs only to see how the oral was working, followed by a virtual visit. Would you like her switched to a regular visit to discuss IV iron? Mechelle Gomez RN Jeannette Hurtado returns for scheduled follow-up. She received IV Venofer 300 mg on 02/21/2023, 02/28/2023 and 03/07/2023. She tolerated the IV iron infusions well. She states that her fatigue is only slightly improved. The brain fog is not much better. She remains off of oral iron. She denies any bleeding or abnormal bruising. Updated Visit, February 07, 2023: Iron deficiency identified.will trial oral iron and see if it helpd otherwise iv iron. Very fatigued. Reviewed all laboratories with her. Would consider IV iron therapy. Initial Visit, January 26, 2023: Jeannette Hurtado presents today Hematology and Oncology evaluation. She is a 57 year old female who presents on consultation for anemia. Hemoglobin in August 2022 was 11 but she presents with progressive fatigue even though she is compliant with CPAP. While anemia is mild and seem to have progressed and worsened. I reviewed outside laboratories but I do not have access to iron studies or ferritin. REVIEW OF SYSTEMS Per HPI and otherwise negative by full review of organ systems. ECOG PERFORMANCE STATUS: 1 PHYSICAL EXAMINATION: Vitals: BP 136/82 Pulse 76 Temp (Src) 97.8 (Temporal) Resp 16 Ht 5' 5.984 (1.68m) Wt 196 lb 6.9 oz (89.1kg) SpO2 98% BMI 31.72 kg/(m^2). Body surface area is 2.04 meters squared. Exam limited to gross visualization where appropriate. Gen.: This is an age-appropriate patient in no acute distress. Head: Appears atraumatic with no visible lesions. Eyes: Pupils equally round and reactive to light, extraocular muscles are intact. Neck: Supple. Respiratory: Appears to be respiring comfortably. Neurologic: Nonfocal to gross visualization. Alert and oriented 3. Psychiatric: No evidence of inappropriate anxiety or depression. Skin: Visible areas of skin without rash, lesions, wounds or petechiae. ALLERGIES: ALLERGIES Allergen Reactions Compazine [Prochlor* Latex Unknown MEDICATIONS: celecoxib (CELEBREX) 200 mg capsule aspirin, enteric coated (ASPIRIN, ENTERIC COATED) 81 mg EC tablet Take 81 mg by mouth. atorvastatin (LIPITOR) 40 mg tablet Atorvastatin Active 40 MG PO Daily July 08, 2023 12:00am lisinopril (ZESTRIL) 5 mg tablet Take 5 mg by mouth once daily. nitroglycerin sublingual (NITROQUICK) 0.4 mg SL tablet Dissolve 0.4 mg under the tongue at bedtime as needed. ticagrelor (BRILINTA) 90 mg tablet Take 90 mg by mouth two times a day. B-complex with vitamin C (VITAMIN B COMPLEX-C ORAL) Take by mouth. ascorbic acid (VITAMIN C ORAL) Take by mouth. sertraline (ZOLOFT) 25 mg tablet Take 25 mg by mouth once daily. esomeprazole (NEXIUM) 20 mg capsule Take 20 mg by mouth once daily. metFORMIN (GLUCOPHAGE) 1,000 mg tablet Take 1,000 mg by mouth twice daily with meals. albuterol HFA (PROVENTIL HFA) inhaler Inhale 2 Puffs as instructed every 6 hours as needed for wheezing/shortness of breath. LABORATORY VALUES: WBC (k/uL) Date Value 09/29/2023 10.00 RBC (m/uL) Date Value 09/29/2023 4.11 Hemoglobin (g/dL) Date Value 09/29/2023 12.9 Hematocrit (%) Date Value 09/29/2023 38.5 MCV (fL) Date Value 09/29/2023 93.7 MCH (pg) Date Value 09/29/2023 31.4 MCHC (g/dL) Date Value 09/29/2023 33.5 RDW-CV (%) Date Value 09/29/2023 13.2 Platelet Count (k/uL) Date Value 09/29/2023 250 MPV (fL) Date Value 09/29/2023 9.8 Glucose (mg/dL) Date Value 09/29/2023 148 (H) BUN (mg/dL) Date Value 09/29/2023 13 Creatinine (mg/dL) Date Value 09/29/2023 0.92 Sodium (mmol/L) Date Value 09/29/2023 141 Potassium (mmol/L) Date Value 09/29/2023 4.7 Chloride (mmol/L) Date Value 09/29/2023 103 CO2 (mmol/L) Date Value 09/29/2023 27 Protein, Total (g/dL) Date Value 09/29/2023 7.8 Albumin (g/dL) Date Value 09/29/2023 4.7 Calcium, Total (mg/dL) Date Value 09/29/2023 10.3 (H) Alkaline Phosphatase (U/L) Date Value 09/29/2023 115 Bilirubin, Total (mg/dL) Date Value 09/29/2023 0.4 AST (U/L) Date Value 09/29/2023 43 (H) ALT (U/L) Date Value 09/29/2023 36 DIAGNOSIS: No diagnosis found. PAST MEDICAL HISTORY Diagnosis Date Anemia Anxiety Elevated glucose Hypercholesteremia Hypothyroidism Iron deficiency anemia secondary to inadequate dietary iron intake 02/07/2023 Migraines PAST SURGICAL HISTORY Procedure Laterality Date COLONOSCOPY 10/2022 PAST SURGICAL HISTORY OF Bilateral sweat glands removed PAST SURGICAL HISTORY OF Left Foot tendon x2 Social History Tobacco Use Smoking status: Never Smokeless tobacco: Never Vaping Use Vaping Use: Never used Substance Use Topics Alcohol use: Yes Drug use: Never FAMILY HISTORY Problem Relation Age of Onset Hypertension Mother Mental illness Mother Cancer Father Hypertension Father Heart disease Father I spent a total of 30 minutes on the date of service which included preparing to see the patient, [id number] patient care, completing clinical documentation, performing a medically appropriate examination, counseling and educating the patient/family/caregiver, ordering medications, tests, or procedures, independently interpreting results (not separately reported), communicating results to the patient/family/caregiver, and care coordination (not separately reported). Jose Rose MD, CPE Hematology and Oncology Services Provided at: [place], [place] Scribe Attestation: This note was scribed by Cecily Merlos on October 03, 2023 under the direction and supervision of Dr. Jose Rose. I attest that all of the information documented is correct to the best of my knowledge. Provider Attestation: I, Jose Rose MD, attest that all information documented by the above scribe is correct, and was supervised by me and under my direction. CC: Klaudia Gomez MD [address] [place] [phone] documented in this encounter [facility] 10-03-2023 Note HNO ID: [id number] Author: JOSE ROSE MD Service: ? Author Type: Physician Type: Progress Notes Filed: 10/03/2023 18:23 Note Text: NAME: Jeannette Hurtado CLINIC NO.: [id number] DATE OF SERVICE: October 03, 2023 (José) Some elements in this clinic note that are critical to medical decision making have been carefully reviewed and included from a prior clinic note dated: July 11, 2022 ([place]) Referring Provider: Dr. Klaudia Gomez Additional Clinicians involved in Jeannette Hurtado's care: DIAGNOSIS: Anemia, fatigue ASSESSMENT: 57 year old woman with anemia and associated fatigue. She has obstructive sleep apnea but is compliant with CPAP. We advised her to have a cardiac workup done because the degree of anemia did not match the degree of fatigue. She ended up failing a stress test and now has two coronary stents. Unfortunately she is still fatigued. PLAN: B12 today and q 4 weeks Rx sent for folic acid RTC in 12 weeks Labs same day HPI: CASE HISTORY: Reverse Chronological Order 01/05/2023 - CBC 9.2 > 11.2/35.6 < 277 11/12/2022 - Colonoscopy is negative. Recommended colonoscopy 10 years. Updated Visit, October 03, 2023: Adalgisa returns today for a follow up. She had stents placed after cardiology workup, although she is still fatigued. I recommended trying B12 injections and folic acid supplements. She remains compliant with her CPAP. Hgb: 12.9 on 09/28. She can also consider a women's health evaluation for hormone replacement / balancing that is offered by [facility]. Updated Visit, July 11, 2023: Jeannette Hurtado returns for scheduled follow-up. Since her last visit there has been no significant medical changes. She offers no new complaints today. No new issues, problems or concerns. She denies bleeding and abnormal bruising. Updated Visit, April 04, 2023: 02/14/2023 Patient called in stating that after taking the oral iron for 1 week she was having nausea, vomiting x1 and diarrhea. Patient stopped medication. Her next appointment was for labs only to see how the oral was working, followed by a virtual visit. Would you like her switched to a regular visit to discuss IV iron? Mechelle Gomez RN eJannette Hrutado returns for scheduled follow-up. She received IV Venofer 300 mg on 02/21/2023, 02/28/2023 and 03/07/2023. She tolerated the IV iron infusions well. She states that her fatigue is only slightly improved. The brain fog is not much better. She remains off of oral iron. She denies any bleeding or abnormal bruising. Updated Visit, February 07, 2023: Iron deficiency identified.will trial oral iron and see if it helpd otherwise iv iron. Very fatigued. Reviewed all laboratories with her. Would consider IV iron therapy. Initial Visit, January 26, 2023: Jeannette Hurtado presents today Hematology and Oncology evaluation. She is a 57 year old female who presents on consultation for anemia. Hemoglobin in August 2022 was 11 but she presents with progressive fatigue even though she is compliant with CPAP. While anemia is mild and seem to have progressed and worsened. I reviewed outside laboratories but I do not have access to iron studies or ferritin. REVIEW OF SYSTEMS Per HPI and otherwise negative by full review of organ systems. ECOG PERFORMANCE STATUS: 1 PHYSICAL EXAMINATION: Vitals: BP 136/82 Pulse 76 Temp (Src) 97.8 (Temporal) Resp 16 Ht 5' 5.984 (1.68m) Wt 196 lb 6.9 oz (89.1kg) SpO2 98% BMI 31.72 kg/(m2). Body surface area is 2.04 meters squared. Exam limited to gross visualization where appropriate. Gen.: This is an age-appropriate patient in no acute distress. Head: Appears atraumatic with no visible lesions. Eyes: Pupils equally round and reactive to light, extraocular muscles are intact. Neck: Supple. Respiratory: Appears to be respiring comfortably. Neurologic: Nonfocal to gross visualization. Alert and oriented ?3. Psychiatric: No evidence of inappropriate anxiety or depression. Skin: Visible areas of skin without rash, lesions, wounds or petechiae. ALLERGIES: ALLERGIES Allergen Reactions Compazine [Prochlor* Latex Unknown MEDICATIONS: celecoxib (CELEBREX) 200 mg capsule aspirin, enteric coated (ASPIRIN, ENTERIC COATED) 81 mg EC tablet Take 81 mg by mouth. atorvastatin (LIPITOR) 40 mg tablet Atorvastatin Active 40 MG PO Daily July 08, 2023 12:00am lisinopril (ZESTRIL) 5 mg tablet Take 5 mg by mouth once daily. nitroglycerin sublingual (NITROQUICK) 0.4 mg SL tablet Dissolve 0.4 mg under the tongue at b (more content not included)... [facility] 09-27-2023 Telephone encounter Note This encounter was opened in error. [facility] 09-27-2023 Miscellaneous Notes This encounter was opened in error. documented in this encounter [facility] 08-15-2023 Nurse Note Patient Identification confirmed: yes. Injection given and documented on MAR per provider order. Katina Howe MA documented in this encounter [facility] 08-15-2023 Nurse Note Patient Identification confirmed: yes. Injection given and documented on MAR per provider order. Katina Howe MA documented in this encounter [facility] 07-11-2023 Note HNO ID: [id number] Author: RUBEN WIGGINS APRN.SOLUTION ANALYST Service: ? Author Type: Nurse Practitioner Type: Progress Notes Filed: 07/18/2023 12:17 Note Text: NAME: Jeannette Hurtado CLINIC NO.: [id number] DATE OF SERVICE: July 11, 2022 ([place]) Some elements in this clinic note that are critical to medical decision making have been carefully reviewed and included from a prior clinic note dated: April 04, 2023. ([place]) Referring Provider: Dr. Klaudia Gomez Additional Clinicians involved in Jeannette Hurtado's care: DIAGNOSIS: Anemia, fatigue ASSESSMENT: 57 year old woman with anemia and associated fatigue. She has obstructive sleep apnea but is compliant with CPAP. PLAN: Follow up in 3 months Labs before follow up.. Possible IV Venofer. HPI: CASE HISTORY: Reverse Chronological Order 01/05/2023 CBC 9.2 > 11.2/35.6 < 277 11/12/2022 colonoscopy is negative. Recommended colonoscopy 10 years. Updated Visit, July 11, 2023: Jeannette Hurtado returns for scheduled follow-up. Since her last visit there has been no significant medical changes. She offers no new complaints today. No new issues, problems or concerns. She denies bleeding and abnormal bruising. Updated Visit, April 04, 2023: 02/14/2023 Patient called in stating that after taking the oral iron for 1 week she was having nausea, vomiting x1 and diarrhea. Patient stopped medication. Her next appointment was for labs only to see how the oral was working, followed by a virtual visit. Would you like her switched to a regular visit to discuss IV iron? Mechelle Gomez RN Jeannette Hurtado returns for scheduled follow-up. She received IV Venofer 300 mg on 02/21/2023, 02/28/2023 and 03/07/2023. She tolerated the IV iron infusions well. She states that her fatigue is only slightly improved. The brain fog is not much better. She remains off of oral iron. She denies any bleeding or abnormal bruising. Updated Visit, February 07, 2023: Iron deficiency identified.will trial oral iron and see if it helpd otherwise iv iron. Very fatigued. Reviewed all laboratories with her. Would consider IV iron therapy. Initial Visit, January 26, 2023: Jeannette Hurtado presents today Hematology and Oncology evaluation. She is a 57 year old female who presents on consultation for anemia. Hemoglobin in August 2022 was 11 but she presents with progressive fatigue even though she is compliant with CPAP. While anemia is mild and seem to have progressed and worsened. I reviewed outside laboratories but I do not have access to iron studies or ferritin. REVIEW OF SYSTEMS Per HPI and otherwise negative by full review of organ systems. ECOG PERFORMANCE STATUS: 1 PHYSICAL EXAMINATION: Vitals: BP 150/77 Pulse 84 Temp (Src) 97.2 (Temporal) Resp 16 Ht 5' 5.984 (1.68m) Wt 204 lb 2.3 oz (92.6kg) SpO2 99% BMI 32.97 kg/(m2). Body surface area is 2.08 meters squared. Exam limited to gross visualization where appropriate. Gen.: This is an age-appropriate patient in no acute distress. Head: Appears atraumatic with no visible lesions. Eyes: Pupils equally round and reactive to light, extraocular muscles are intact. Neck: Supple. Respiratory: Appears to be respiring comfortably. Neurologic: Nonfocal to gross visualization. Alert and oriented ?3. Psychiatric: No evidence of inappropriate anxiety or depression. Skin: Visible areas of skin without rash, lesions, wounds or petechiae. ALLERGIES: ALLERGIES Allergen Reactions Compazine [Prochlor* Latex Unknown MEDICATIONS: B-complex with vitamin C (VITAMIN B COMPLEX-C ORAL) Take by mouth. ascorbic acid (VITAMIN C ORAL) Take by mouth. sertraline (ZOLOFT) 25 mg tablet Take 25 mg by mouth once daily. esomeprazole (NEXIUM) 20 mg capsule Take 20 mg by mouth once daily. metFORMIN (GLUCOPHAGE) 1,000 mg tablet Take 1,000 mg by mouth twice daily with meals. albuterol HFA (PROVENTIL HFA) inhaler Inhale 2 Puffs as instructed every 6 hours as needed for wheezing/shortness of breath. LABORATORY VALUES: WBC (k/uL) Date Value 07/07/2023 9.13 RBC (m/uL) Date Value 07/07/2023 4.44 Hemoglobin (g/dL) Date Value 07/07/2023 13.5 Hematocrit (%) Date Value 07/07/2023 40.0 MCV (fL) Date Value 07/07/2023 90.1 MCH (pg) Date Value 07/07/2023 30.4 MCHC (g/dL) Date Value 07/07/2023 33.8 RDW-CV (%) Date Value 07/07/2023 12.9 Platelet Count (k/uL) Date Value 07/07/2023 237 MPV (fL) Andres (more content not included)... [facility] 07-11-2023 History of Present illness Narrative Images from the original note were not included. NAME: Jeannette Hurtado CLINIC NO.: [id number] DATE OF SERVICE: July 11, 2022 ([place]) Some elements in this clinic note that are critical to medical decision making have been carefully reviewed and included from a prior clinic note dated: April 04, 2023. ([place]) Referring Provider: Dr. Klaudia Gomez Additional Clinicians involved in Jeannette Wyatte's care: DIAGNOSIS: Anemia, fatigue ASSESSMENT: 57 year old woman with anemia and associated fatigue. She has obstructive sleep apnea but is compliant with CPAP. PLAN: Follow up in 3 months Labs before follow up.. Possible IV Venofer. HPI: CASE HISTORY: Reverse Chronological Order 01/05/2023 CBC 9.2 > 11.2/35.6 < 277 11/12/2022 colonoscopy is negative. Recommended colonoscopy 10 years. Updated Visit, July 11, 2023: Jeannette Hurtado returns for scheduled follow-up. Since her last visit there has been no significant medical changes. She offers no new complaints today. No new issues, problems or concerns. She denies bleeding and abnormal bruising. Updated Visit, April 04, 2023: 02/14/2023 Patient called in stating that after taking the oral iron for 1 week she was having nausea, vomiting x1 and diarrhea. Patient stopped medication. Her next appointment was for labs only to see how the oral was working, followed by a virtual visit. Would you like her switched to a regular visit to discuss IV iron? Mechelle Gomez RN Jeannette Hurtado returns for scheduled follow-up. She received IV Venofer 300 mg on 02/21/2023, 02/28/2023 and 03/07/2023. She tolerated the IV iron infusions well. She states that her fatigue is only slightly improved. The brain fog is not much better. She remains off of oral iron. She denies any bleeding or abnormal bruising. Updated Visit, February 07, 2023: Iron deficiency identified.will trial oral iron and see if it helpd otherwise iv iron. Very fatigued. Reviewed all laboratories with her. Would consider IV iron therapy. Initial Visit, January 26, 2023: Jeannette Hurtado presents today Hematology and Oncology evaluation. She is a 57 year old female who presents on consultation for anemia. Hemoglobin in August 2022 was 11 but she presents with progressive fatigue even though she is compliant with CPAP. While anemia is mild and seem to have progressed and worsened. I reviewed outside laboratories but I do not have access to iron studies or ferritin. REVIEW OF SYSTEMS Per HPI and otherwise negative by full review of organ systems. ECOG PERFORMANCE STATUS: 1 PHYSICAL EXAMINATION: Vitals: BP 150/77 Pulse 84 Temp (Src) 97.2 (Temporal) Resp 16 Ht 5' 5.984 (1.68m) Wt 204 lb 2.3 oz (92.6kg) SpO2 99% BMI 32.97 kg/(m^2). Body surface area is 2.08 meters squared. Exam limited to gross visualization where appropriate. Gen.: This is an age-appropriate patient in no acute distress. Head: Appears atraumatic with no visible lesions. Eyes: Pupils equally round and reactive to light, extraocular muscles are intact. Neck: Supple. Respiratory: Appears to be respiring comfortably. Neurologic: Nonfocal to gross visualization. Alert and oriented 3. Psychiatric: No evidence of inappropriate anxiety or depression. Skin: Visible areas of skin without rash, lesions, wounds or petechiae. ALLERGIES: ALLERGIES Allergen Reactions Compazine [Prochlor* Latex Unknown MEDICATIONS: B-complex with vitamin C (VITAMIN B COMPLEX-C ORAL) Take by mouth. ascorbic acid (VITAMIN C ORAL) Take by mouth. sertraline (ZOLOFT) 25 mg tablet Take 25 mg by mouth once daily. esomeprazole (NEXIUM) 20 mg capsule Take 20 mg by mouth once daily. metFORMIN (GLUCOPHAGE) 1,000 mg tablet Take 1,000 mg by mouth twice daily with meals. albuterol HFA (PROVENTIL HFA) inhaler Inhale 2 Puffs as instructed every 6 hours as needed for wheezing/shortness of breath. LABORATORY VALUES: WBC (k/uL) Date Value 07/07/2023 9.13 RBC (m/uL) Date Value 07/07/2023 4.44 Hemoglobin (g/dL) Date Value 07/07/2023 13.5 Hematocrit (%) Date Value 07/07/2023 40.0 MCV (fL) Date Value 07/07/2023 90.1 MCH (pg) Date Value 07/07/2023 30.4 MCHC (g/dL) Date Value 07/07/2023 33.8 RDW-CV (%) Date Value 07/07/2023 12.9 Platelet Count (k/uL) Date Value 07/07/2023 237 MPV (fL) Date Value 07/07/2023 9.5 Glucose (mg/dL) Date Value 07/07/2023 144 (H) BUN (mg/dL) Date Value 07/07/2023 15 Creatinine (mg/dL) Date Value 07/07/2023 0.81 Sodium (mmol/L) Date Value 07/07/2023 137 Potassium (mmol/L) Date Value 07/07/2023 4.1 Chloride (mmol/L) Date Value 07/07/2023 102 CO2 (mmol/L) Date Value 07/07/2023 23 Protein, Total (g/dL) Date Value 07/07/2023 7.3 Albumin (g/dL) Date Value 07/07/2023 4.4 Calcium, Total (mg/dL) Date Value 07/07/2023 9.4 Alkaline Phosphatase (U/L) Date Value 07/07/2023 117 Bilirubin, Total (mg/dL) Date Value 07/07/2023 0.4 AST (U/L) Date Value 07/07/2023 87 (H) ALT (U/L) Date Value 07/07/2023 89 (H) DIAGNOSIS: (D50.8) Iron deficiency anemia secondary to inadequate dietary iron intake (primary encounter diagnosis) PAST MEDICAL HISTORY Diagnosis Date Anemia Anxiety Elevated glucose Hypercholesteremia Hypothyroidism Iron deficiency anemia secondary to inadequate dietary iron intake 02/07/2023 Migraines PAST SURGICAL HISTORY Procedure Laterality Date COLONOSCOPY 10/2022 PAST SURGICAL HISTORY OF Bilateral sweat glands removed PAST SURGICAL HISTORY OF Left Foot tendon x2 Social History Tobacco Use Smoking status: Never Smokeless tobacco: Never Vaping Use Vaping Use: Never used Substance Use Topics Alcohol use: Yes Drug use: Never FAMILY HISTORY Problem Relation Age of Onset Hypertension Mother Mental illness Mother Cancer Father Hypertension Father Heart disease Father Ruben Wiggins APRN.CNP Hematology and Oncology Services Provided at: [place], [place] CC: Klaudia Gomez MD [address] [facility] [id number] I spent a total of 20 minutes on the date of the service which included preparing to see the patient, [id number] patient care, completing clinical documentation, obtaining and/or reviewing separately obtained history, performing a medically appropriate examination, counseling and educating the patient/family/caregiver, ordering medications, tests, or procedures, independently interpreting results (not separately reported), and communicating results to the patient/family/caregiver. documented in this encounter [facility] 07-08-2023 Miscellaneous Notes Appointment for Venofer cancelled. Spoke w/ patient and notified she will not receive Venofer on Tuesday and just see Ruben. Patient in agreement. Thanks! [place] [place] Iron studies do not meet criteria for venofer infusions. Please cancel upcoming venofer appointment 07/11. Thank you, Manuel Rivers RPh documented in this encounter [facility] 07-08-2023 Discharge summary Note Date/Time July 08, 2023 11:18am [facility] [address] [place] [address] Discharge Summary Signed Patient: Jeannette Hurtado MR#: [id number] : 1965 Acct:[id number] Age/Sex: 57 / F Adm Date: 4 Loc: Room: Attending Dr: Haresh Middleton MD Copies to: MD Klaudia Montiel MD W Scott Sheldon, DO~ Providers Date of Discharge: 07/08/23 Discharging Provider: Frances Hidalgo Primary Care Provider: Klaudia Gomez Discharge Diagnosis (1) Abnormal cardiovascular stress test: (2) ASHD (arteriosclerotic heart disease): (3) Anginal pain: Final Diagnosis Final Discharge Diagnosis: 1. Angina pectoris 2. Abnormal myocardial perfusion stress test 3. Symptomatic two-vessel ASHD 4. PCI proximal LAD and mid OM branch x 2 CAMPOS Summary Hospital Course Hospital course: 57-year-old female presents with angina pectoris, abnormal stress imaging, outpatient catheterization performed by Dr. Middleton revealed severe proximal LADand mid OM branch disease and underwent two-vessel PCI's with 3.5 x 18 and 2.75 x 15 mm Keenan stents respectively without complications. Patient will need to beon DAPT x 6 to 12 months minimum and follow-up with cardiology. Condition Condition at Discharge: Stable Status at Discharge Functional status at discharge: independent ambulation Overall status at discharge: patient is back to baseline Time Spent with Patient Time spent providing/coordinating discharge services (# min): 15 Surgeries and Procedures Operation Date: 07/08/23 10:15 Actual Procedures p CL LHC & COR Angio - W Rodrigue Hidalgo DO s CL Stent 1st Vessel LAD CAMPOS - Frances Hidalgo DO s CL Stent 1st Vessel CX CAMPOS - Frances Hidalgo DO Complications Complications: None Diagnostic Studies Completed and Pending Studies Pending studies at discharge: 07/08/23 11:03 CPR cardiac rehab ed Routine ECG 12 lead ECG Stat 07/09/23 05:00 ECG 12 lead ECG IN AM Troponin I High Sensitivity [CHEM] IN AM Exam Physical Exam Vital Signs: Temp Pulse Resp BP Pulse Ox O2 Del Method 97.9 F 72 16 139/80 97 Room Air 07/08/23 08:39 07/08/23 08:39 07/08/23 08:39 07/08/23 08:39 07/08/23 08:39 07/08/23 08:39 Const General: cooperative, comfortable and no acute distress Nutritional Appearance: average body habitus Orientation: alert, awake and oriented x3 HEENT Head: normal to inspection Chest Chest palpation & inspection: normal inspection of the chest Resp Effort & Inspection: normal respiratory effort Auscultation: clear to auscultation bilaterally Cardio Palpation: normal PMI Rate: regular rate Rhythm: regular rhythm Heart Sounds: S1 normal, S2 normal and no murmurs Pulses: radial pulses present GI Palpation: soft Skin General: no rashes or lesions noted Neuro General: patient alert, patient awake and patient oriented x3 Cognition: normal cognition Speech: speech normal Extrem General: no clubbing, cyanosis or edema Discharge Plan Discharge Plan Patient Disposition: Home Diet: Low-Cholesterol Additional Instructions: DISCHARGE INSTRUCTIONS FOR ANGIOPLASTY/CORONARY/PERIPHERAL/STENT IMPLANT FOR ADULT ANTICOAGULATION -Since the greatest risk of a blood clot forming with the stent occurs in the first 2-3 weeks after implantation, you will need to take anticoagulants for at least 6 to 12 months ANTICOAGULATION MEDICATION [INSERT MEDICATION NAME: Aspirin 81mg once a day, Ticagrelor (Brilinta) 90mg twice a day] STATIN MEDICATION [INSERT MEDICATION NAME: atorvastatin (Lipitor) 80 mg or rosuvastatin (Crestor) 40mg] [Bare Metal Stent (BMS) duration ] [Drug-Eluting Stent (CAMPOS) duration] DO NOT discontinue Plavix/Effient/Brilinta/Aspirin during the first few months regardless of what you are advised by your family doctor or pharmacist, without first calling the bench mover who implanted the stent. If you require pain relief during this time, please take only ACETAMINOPHEN (TYLENOL)- NO additional aspirin or ibuprofen. DISCHARGE ACTIVITIES ARE FOLLOWS: First week after discharge: -Take it easy at home, no strenuous activity. -Do not lift or pull objects over 10-15 pounds, including children, and groceries for four weeks. If puncture site is at wrist do NOT lift more than three pounds for three days. - May walk up stairs. -May shower. -No excessive scrubbing of the affected site (groin). -May ride in car. -May resume sexual intercourse after 1-2 weeks. -No MRI for 12 days. -May drive in 4-7 days. -If puncture site is at the wrist do not manipulate the wrist for 24 hours, and no soaking wrist for three days. Second Week: -May take a bath -May start walking 3 times a week for 15-20 minutes at a leisurely pace. You should be able to carry on a conversation comfortably without feeling winded. -No strenuous activity as in jogging, running, weight lifting, stair steppers, etc. until the bench mover approves these activities. Check with the bench mover on your first follow-up visit. CALL YOUR ROCK DUSTER: -If bleeding should occur from the catheter insertion site- apply pressure to the site then immediately call us. -Report any fever, redness, drainage, increased swelling, or firmness at the catheter insertion site. Some bruising or slight swelling may be present at thetime of discharge. -Should arm or leg become cold, numb, white, or blue, contact the bench mover immediately. -IF you should experience episodes of angina, e.g. chest discomfort, heaviness, tightness, pressure burning with or without radiation to the neck, jaw, arms or back- use 1 Nitrostat tablet under your tongue every 5-10 minutes and up to three tablets. IF NO RELIEF, CALL 911 or GO TO THE NEAREST EMERGENCY ROOM. -Please notify our office if you have recurrent angina. The attending bench mover or a nurse clinician should provide you with specificinstructions regarding activity, diet, medications, and further follow up for you. Follow the medication instructions provided on your discharge. If the dosages and instructions on this sheet differ from the dosage and instructions on the bottle, follow the instructions on the bottle. [facility] is not responsible for incorrect prescription information provided by thepatient during their visit. Do not stop your medications without consulting your health care provider. Please take the list with you to your next doctor's appointment. Prescriptions: New Brilinta 90 mg tablet 90 mg PO BID Qty: 180 3RF nitroglycerin 0.4 mg tablet, sublingual 0.4 mg sublingual Q5M PRN (Reason: chest pain) Qty: 30 2RF Rx Instructions: until response; do not exceed 3 doses per event atorvastatin 40 mg tablet 40 mg PO DAILY Qty: 90 2RF aspirin 81 mg tablet,chewable 81 mg PO DAILY Qty: 90 3RF Continued albuterol sulfate 90 mcg/actuation HFA aerosol inhaler 2 inh INHALATION Q4HR PRN (Reason: shortness of breath or wheezing) Rx Instructions: FreeTextSi puff Inhalation every 4 hrs prn; Note: Source Status: Taking; Refills: 1; Qty: 1 Each; Provider: Jason Friedman ascorbic acid (vitamin C) 250 mg tablet 250 mg PO DAILY Rx Instructions: FreeTextSi tablet Orally Once a day; Note: Source Status: Taking; Provider: Emi Hutson ( ) esomeprazole magnesium [Nexium] 20 mg capsule,delayed release(DR/EC) 20 mg PO DAILY Rx Instructions: FreeTextSi capsule Orally Once a day; Note: Source Status: Taking; Provider: Jason Friedman metformin 1,000 mg tablet 1,000 mg PO BID Rx Instructions: FreeTextSi tablet with a meal Orally bid; Note: Source Status: Taking; Refills: 2; Qty: 180 Tablet; Provider: Jason Friedman sertraline 25 mg tablet 25 mg PO DAILY Rx Instructions: FreeTextSig: TAKE 1 TABLET BY MOUTH DAILY Orally Once a day; Note: Source Status: Taking; Refills: 0; Provider: Jason Friedman Follow Up: Klaudia Gomez MD [Primary Care Provider] - Haresh Middleton MD [Active Staff] - Documented By: Frances Hidalgo DO 07/08/23 1116 Signed By: <Electronically signed by Frances Hidalgo DO> 07/08/23 [id number] [facility] Work Phone: 1(930) 861-431402-23-2024 Consult note Author Frances Hidalgo [facility] July 08, 2023 11:15am Note Date/Time July 08, 2023 11:15am [facility] [address] [place], [place] [id number] Cardiology Consult Note Signed Patient: Jeannette Hurtado MR#: [id number] : 1965 Acct:[id number] Age/Sex: 57 / F Adm Date: 4 Loc: CL Room: Type: [facility] Attending Dr: Haresh Middleton MD Copies to: MD Klaudia Montiel MD W Scott Sheldon, DO~ Cardiology HPI History of Present Illness Consult Date: 07/08/23 Reason for Consult: Symptomatic two-vessel ASHD, abnormal cardiovascular stress test HPI: Ms. Hurtado is a 57 year old female seen in interventional cardiology consultation at the request of Dr. Middleton for further evaluation in regards to management of symptomatic coronary artery disease discovered on today's outpatient, elective left heart catheterization. Patient has anginal symptomatology, underwent outpatient stress imaging revealing anterior ischemia. Diagnostic catheterization revealed severe 90% lesion in the proximal LAD and moderate 75 to 80% stenosis of the mid OM with preserved left ventricular function. She is not on antiplatelet therapy There is no prior history of myocardial infarction, revascularization, stroke, thromboembolic or bleeding disorder. She does have a family history for coronary disease with prior CABG in her father She does have diabetes mellitus, is a non-smoker Case discussed with Dr. Middleton, images reviewed, will proceed with two-vessel PCI this morning Review of Systems Review of Systems All other systems reviewed & are negative unless noted below or in HPI Constitutional Constitutional: Reports as per HPI [facility] Medical History (Updated 07/08/23 @ 11:15 by Frances Hidalgo DO) Asthma Sleep apnea treated with continuous positive airway pressure (CPAP) Anxiety Migraine DJD (degenerative joint disease) Arthritis Back pain Incontinence GERD (gastroesophageal reflux disease) Diabetes mellitus, type 2 Murmur Anginal pain twinges Surgical History History of dilatation and curettage History of orthopedic surgery lt ankle and foot with pins, plate and screws Family History Father Heart disease Hx of CABG CAD (coronary artery disease) History of heart artery stent Pancreatic cancer Mother Glaucoma Macular degeneration Social History Smoking Status: Never smoker Substance Use Type: None Meds Medications and Allergies Allergies latex Allergy (Unknown, Verified 07/06/23 07:39) rash prochlorperazine [From Compazine] Allergy (Unknown, Verified 07/06/23 07:39) Agitated, Comment:psychological changes--pt states she tries to cli... Home Medications albuterol sulfate 90 mcg/actuation aerosol inhaler 2 inh inhalation Q4HR PRN shortness of breath or wheezing 07/06/23 [History Confirmed 07/08/23] ascorbic acid (vitamin C) 250 mg tablet 250 mg PO DAILY 07/06/23 [History Confirmed 07/08/23] esomeprazole magnesium 20 mg capsule,delayed release (Nexium) 20 mg PO DAILY gerd 07/06/23 [History Confirmed 07/08/23] metformin 1,000 mg tablet 1,000 mg PO BID diabetes 07/06/23 [History Confirmed 07/08/23] sertraline 25 mg tablet 25 mg PO DAILY anxiety 07/06/23 [History Confirmed 07/08/23] Exam Physical Exam Vital Signs: Temp Pulse Resp BP Pulse Ox O2 Del Method 97.9 F 72 16 139/80 97 Room Air 07/08/23 08:39 07/08/23 08:39 07/08/23 08:39 07/08/23 08:39 07/08/23 08:39 07/08/23 08:39 Const General: cooperative, comfortable and no acute distress Nutritional Appearance: average body habitus Orientation: alert, awake and oriented x3 HEENT Head: normal to inspection Chest Chest palpation & inspection: normal inspection of the chest Resp Effort & Inspection: normal respiratory effort Auscultation: clear to auscultation bilaterally Cardio Palpation: normal PMI Rate: regular rate Rhythm: regular rhythm Heart Sounds: S1 normal, S2 normal and no murmurs Pulses: radial pulses present GI Palpation: soft Skin General: no rashes or lesions noted Neuro General: patient alert, patient awake and patient oriented x3 Cognition: normal cognition Speech: speech normal Extrem General: no clubbing, cyanosis or edema Results Labs Lab results: Intake and Output 07/07/23 07/08/23 07/08/23 23:59 07:59 15:59 Other: Weight 91 kg Patient Weight 07/08/23 23:59 Weight 91 kg A&P - Cardiology (1) Abnormal cardiovascular stress test: Code(s): R94.39 - Abnormal result of other cardiovascular function study (2) ASHD (arteriosclerotic heart disease): Code(s): I25.10 - Atherosclerotic heart disease of [place] coronary artery without angina pectoris (3) Anginal pain: Code(s): I20.9 - Angina pectoris, unspecified Plan Proceed with two-vessel PCI Documented By: Frances Hidalgo DO 07/08/23 1112 Signed By: <Electronically signed by Frances Hidalgo DO> 07/08/23 1115 [facility] Work Phone: [phone] Procedure [facility]02-08-2024 Evaluation note* Encounter Date Diagnosis Assessment Notes Treatment Notes Treatment Clinical Notes Jun, Chronic fatigue disorder (ICD-10 - G93.32) Jun, Palpitations (ICD-10 - R00.2) Jun, Abnormal myocardial perfusion study (ICD-10 - R94.39) [place] Other 02-02-2024 Procedure [facility]01-18-2024 Evaluation note* Encounter Date Diagnosis Assessment Notes Treatment Notes Treatment Clinical Notes May, Palpitations (ICD-10 - R00.2) May, Chronic fatigue disorder (ICD-10 - G93.32) May, Iron deficiency anemia, unspecified iron deficiency anemia type (ICD-10 - D50.9) May, History of COVID-19 (ICD-10 - Z86.16) May, Other # Chronic fatig ue - Possible causes Undertreated JUAN, long COVID, decontidioning. Less likely myocardial ischemia. We have ruled out severe anemia, thyroid disease, cardiomyopathy, pulmonary HTN.# Mild anemia with Iron deficiency - Treated with iron infusions. Hgb now normalized. # Palpitations - Described as a brief flutter whenever she is stressed or anxious. Very rare and infrequent. # Other: Prediabetes, sinus allergies, obstructive sleep apnea on CPAP, H/o COVID-19 infection (in Apr 2020 and May 2021). CBC 04/04/23 - normal WBC count, mild anemia of 10 which was corrected after iron infusions to hemoglobin 12.9. BMP 04/04/2023 - normal electrolytes and creatinine. EKG 11/19/22 at [facility] -sinus rhythm 62 bpm with nonspecific T wave abnormalities, normal QRS duration.EKG 05/03/23 done in clinic -sinus rhythm at 76 bpm, borderline criteria for LVH, no significant ST-T abnormalities, normal QRS duration. Thyroid function 05/13/23 - TSH 4.1 nomral, FT4 0.79 normal. Echo 05/13/23 - EF 60-65%, eccentric LVH, G2DD, normal wall motion, no pulmonary hypertension. - Echo, TSH and CBC were all normal. She has no significant palpitations and holter/event monitoring would yeild little benefit. -She has never had her CPAP recallibrated which she needs to get done periodiacally; JUAN may be contributing to fatigue. - Will get exercise treadmill with [employer] MPI to eval exercise capacity/deconditio ilseth and rule out any ischemia. If this is equivocal or cannot be done, will get CPET (VO2max usually >20 mL/kg in deconditioning). - If all these are normal will refer her back to PCP. Other less likely diagnoses include lyme disease, adrenal disease, depression, stress, vitamin deficiencies, etc.- F/u in 2 months. [place] Other 11-20-2023 Evaluation note* Encounter Date Diagnosis Assessment Notes Treatment Notes Treatment Clinical Notes Mar, Chronic fatigue (ICD-10 - R53.82) [place] Other 11-20-2023 History of Present illness Narrative* Ruben Wiggins APRN.SOLUTION ANALYST - 04/04/2023 1:00 PM EST Images from the original note were not included. NAME: Jeannette Hurtado CLINIC NO.: [id number] DATE OF SERVICE: April 04, 2023 ([place]) Some elements in this clinic note that are critical to medical decision making have been carefully reviewed and included from a prior clinic note dated: February 07, 2023. (Dr. Rose) Referring Provider: Dr. Klaudia Gomez Additional Clinicians involved in Jeannette Hurtado's care: DIAGNOSIS: Anemia, fatigue ASSESSMENT: 57 year old woman with anemia and associated fatigue. She has obstructive sleep apnea but is compliant with CPAP. PLAN: Follow up in 3 months with labs same day. Possible IV Venofer. HPI: CASE HISTORY: Reverse Chronological Order 01/05/2023 CBC 9.2 > 11.2/35.6 < 277 11/12/2022 colonoscopy is negative. Recommended colonoscopy 10 years. Updated Visit, April 04, 2023: 02/14/2023 Patient called in stating that after taking the oral iron for 1 week she was having nausea, vomiting x1 and diarrhea. Patient stopped medication. Her next appointment was for labs only to see how theoral was working, followed by a virtual visit. Would you like her switched to a regular visit to discuss IV iron? FIORDALIZA Wallacemarc Benavides Hurtado returns for scheduled follow-up. She received IV Venofer 300 mg on 02/21/2023, 02/28/2023 and 03/07/2023. She tolerated the IV iron infusions well. She states that her fatigue is only slightly improved. The brain fog is not much better. She remains off of oral iron. She denies anybleeding or abnormal bruising. Updated Visit, February 07, 2023: Iron deficiency identified.will trial oral iron and see if it helpd otherwise iv iron. Very fatigued. Reviewed all laboratories with her. Would consider IV iron therapy. Initial Visit, January 26, 2023: Jeannette Hurtado presents today Hematology and Oncology evaluation. She is a 57 year old female who presents on consultation for anemia. Hemoglobin in August 2022 was 11 but she presents with progressive fatigue even though she is compliant with CPAP. While anemia is mild and seem to have progressed and worsened. I reviewed outside laboratories but I do not have access to iron studies or ferritin. REVIEW OF SYSTEMS Per HPI and otherwise negative by full review of organ systems. ECOG PERFORMANCE STATUS: 1 PHYSICAL EXAMINATION: Vitals: BP 162/66 Pulse 58 Temp (Src) 97.6 (Temporal) Resp 16 Ht 5' 5.984 (1.68m) Wt 205lb (93.0kg) SpO2 97% BMI 33.10 kg/(m^2). Body surface area is 2.08 meters squared. Exam limited to gross visualization where appropriate. Gen.: This is an age-appropriate patient in no acute distress. Head: Appears atraumatic with no visible lesions. Eyes: Pupils equally round and reactive to light, extraocular muscles are intact. Neck: Supple. Respiratory: Appears to be respiring comfortably. Neurologic: Nonfocal to gross visualization. Alert and oriented 3. Psychiatric: No evidence of inappropriate anxiety or depression. Skin: Visible areas of skin without rash, lesions, wounds or petechiae. ALLERGIES: ALLERGIES Allergen Reactions Compazine [Prochlor* Latex Unknown MEDICATIONS: B-complex with vitamin C (VITAMIN B COMPLEX-C ORAL) Take by mouth. ascorbic acid (VITAMIN C ORAL) Take by mouth. sertraline (ZOLOFT) 25 mg tablet Take 25 mg by mouth once daily. esomeprazole (NEXIUM) 20 mg capsule Take 20 mg by mouth once daily. metFORMIN (GLUCOPHAGE) 1,000 mg tablet Take 1,000 mg by mouth twice daily with meals. albuterol HFA (PROVENTIL HFA) inhaler Inhale 2 Puffs as instructed every 6 hours as needed for wheezing/shortness of breath. LABORATORY VALUES: WBC (k/uL) Date Value 04/04/2023 8.53 RBC (m/uL) Date Value 04/04/2023 4.69 Hemoglobin (g/dL) Date Value 04/04/2023 12.9 Hematocrit (%) Date Value 04/04/2023 40.8 MCV (fL) Date Value 04/04/2023 87.0 MCH (pg) Date Value 04/04/2023 27.5 MCHC (g/dL) Date Value 04/04/2023 31.6 RDW-CV (%) Date Value 04/04/2023 16.9 (H) Platelet Count (k/uL) Date Value 04/04/2023 240 MPV (fL) Date Value 04/04/2023 9.5 Glucose (mg/dL) Date Value 02/28/2023 162 (H) BUN (mg/dL) Date Value 02/28/2023 16 Creatinine (mg/dL) Date Value 02/28/2023 0.74 Sodium (mmol/L) Date Value 02/28/2023 135 (L) Potassium (mmol/L) Date Value 02/28/2023 4.0 Chloride (mmol/L) Date Value 02/28/2023 100 CO2 (mmol/L) Date Value 02/28/2023 24 Protein, Total (g/dL) Date Value 02/28/2023 7.2 Albumin (g/dL) Date Value 02/28/2023 4.6 Calcium, Total (mg/dL) Date Value 02/28/2023 9.9 Alkaline Phosphatase (U/L) Date Value 02/28/2023 103 Bilirubin, Total (mg/dL) Date Value 02/28/2023 0.2 AST (U/L) Date Value 02/28/2023 59 (H) ALT (U/L) Date Value 02/28/2023 38 DIAGNOSIS: (D50.8) Iron deficiency anemia secondary to inadequate dietary iron intake (primary encounter diagnosis) PAST MEDICAL HISTORY Diagnosis Date Anemia Anxiety Elevated glucose Hypercholesteremia Hypothyroidism Iron deficiency anemia secondary to inadequate dietary iron intake 02/07/2023 Migraines PAST SURGICAL HISTORY Procedure Laterality Date COLONOSCOPY 10/2022 PAST SURGICAL HISTORY OF Bilateral sweat glands removed PAST SURGICAL HISTORY OF Left Foot tendon x2 Social History Tobacco Use Smoking status: Never Smokeless tobacco: Never Vaping Use Vaping Use: Never used Substance Use Topics Alcohol use: Yes Drug use: Never FAMILY HISTORY Problem Relation Age of Onset Hypertension Mother Mental illness Mother Cancer Father Hypertension Father Heart disease Father Ruben Wiggins APRN.CNP Hematology and Oncology Services Provided at: [place], [place] CC: Klaudia Gomez MD [address] [place] [id number] I spent a total of 20 minutes on the date of the service which included preparing to see the patient, [id number] patient care, completing clinical documentation, obtaining and/or reviewing separately obtained history, performing a medically appropriate examination, counseling and educating the pat ient/family/caregiver, ordering medications, tests, or procedures, independently interpreting results (not separately reported), and communicating results to the patient/family/caregiver. documented in this encounter[facility]11-[facility]23 NoteHNO ID: [id number] Author: Ruben Wiggins APRN.CNP Service: ? Author Type: Nurse Practitioner Type: Progress Notes Filed: 04/04/2023 1:51 PM Note Text: NAME: Jeannette Hurtado CLINIC NO.: [id number] DATE OF SERVICE: April 04, 2023 ([place]) Some elements in this clinic note that are critical to medical decision making have been carefully reviewed and included from a prior clinic note dated: February 07, 2023. (Dr. Rose) Referring Provider: Dr. Klaudia Gomez Additional Clinicians involved in Jeannette Hurtado's care: DIAGNOSIS: Anemia, fatigue ASSESSMENT: 57 year old woman with anemia and associated fatigue. She has obstructive sleep apnea but is compliant with CPAP. PLAN: Follow up in 3 months with labs same day. Possible IV Venofer. HPI: CASE HISTORY: Reverse Chronological Order 01/05/2023 CBC 9.2 > 11.2/35.6 < 277 11/12/2022 colonoscopy is negative. Recommended colonoscopy 10 years. Updated Visit, April 04, 2023: 02/14/2023 Patient called in stating that after taking the oral iron for 1 week she was having nausea, vomiting x1 and diarrhea. Patient stopped medication. Her next appointment was for labs only to see how the oral was working, followed by a virtual visit. Would you like her switched to a regular visit to discuss IV iron? Mechelle Gomez RN Jeannette Hurtado returns for scheduled follow-up. She received IV Venofer 300 mg on 02/21/2023, 02/28/2023 and 03/07/2023. She tolerated the IV iron infusions well. She states that her fatigue is only slightly improved. The brain fog is not much better. She remains off of oral iron. She denies any bleeding or abnormal bruising. Updated Visit, February 07, 2023: Iron deficiency identified.will trial oral iron and see if it helpd otherwise iv iron. Very fatigued. Reviewed all laboratories with her. Would consider IV iron therapy. Initial Visit, January 26, 2023: Jeannette Hurtado presents today Hematology and Oncology evaluation. She is a 57 year old female who presents on consultation for anemia. Hemoglobin in August 2022 was 11 but she presents with progressive fatigue even though she is compliant with CPAP. While anemia is mild and seem to have progressed and worsened. I reviewed outside laboratories but I do not have access to iron studies or ferritin. REVIEW OF SYSTEMS Per HPI and otherwise negative by full review of organ systems. ECOG PERFORMANCE STATUS: 1 PHYSICAL EXAMINATION: Vitals: BP 162/66 Pulse 58 Temp (Src) 97.6 (Temporal) Resp 16 Ht 5' 5.984 (1.68m) Wt 205 lb (93.0kg) SpO2 97% BMI 33.10 kg/(m2). Body surface area is 2.08 meters squared. Exam limited to gross visualization where appropriate. Gen.: This is an age-appropriate patient in no acute distress. Head: Appears atraumatic with no visible lesions. Eyes: Pupils equally round and reactive to light, extraocular muscles are intact. Neck: Supple. Respiratory: Appears to be respiring comfortably. Neurologic: Nonfocal to gross visualization. Alert and oriented ?3. Psychiatric: No evidence of inappropriate anxiety or depression. Skin: Visible areas of skin without rash, lesions, wounds or petechiae. ALLERGIES: ALLERGIES Allergen Reactions Compazine [Prochlor* Latex Unknown MEDICATIONS: B-complex with vitamin C (VITAMIN B COMPLEX-C ORAL) Take by mouth. ascorbic acid (VITAMIN C ORAL) Take by mouth. sertraline (ZOLOFT) 25 mg tablet Take 25 mg by mouth once daily. esomeprazole (NEXIUM) 20 mg capsule Take 20 mg by mouth once daily. metFORMIN (GLUCOPHAGE) 1,000 mg tablet Take 1,000 mg by mouth twice daily with meals. albuterol HFA (PROVENTIL HFA) inhaler Inhale 2 Puffs as instructed every 6 hours as needed for wheezing/shortness of breath. LABORATORY VALUES: WBC (k/uL) Date Value 04/04/2023 8.53 RBC (m/uL) Date Value 04/04/2023 4.69 Hemoglobin (g/dL) Date Value 04/04/2023 12.9 Hematocrit (%) Date Value 04/04/2023 40.8 MCV (fL) Date Value 04/04/2023 87.0 MCH (pg) Date Value 04/04/2023 27.5 MCHC (g/dL) Date Value 04/04/2023 31.6 RDW-CV (%) Date Value 04/04/2023 16.9 (H) Platelet Count (k/uL) Date Value 04/04/2023 240 MPV (fL) Date Value 04/04/2023 9.5 Glucose (mg/dL) Date Value 02/28/2023 162 (H) BUN (mg/dL) Date Value 02/28/2023 16 Creatinine (mg/dL) Date Value 02/28/2023 0.74 Sodium (mmol/L) Date Value 02/28/2023 135 (L) Potassium (mmol/L) Date Value 02/28/2023 4.0 Ch (more content not included)...[facility]09-25-2023 Instructions* Patient Instructions* Jose Rose MD - 02/07/2023 2:06 PM EDT Start oral iron therapy Ferrous gluconate once daily 6 days / week If not tolerated, start IV iron. Recheck labs in 3 weeks Virtual visit 1 week after documented in this encounterGreen [facility]09-25-2023 History of Present illness Narrative* Jose Rose MD - 02/07/2023 1:15 PM EDT Images from the original note were not included. NAME: Jeannette Hurtado CLINIC NO.: [id number] DATE OF SERVICE: February 07, 2023 ([place]) Some elements in this clinic note that are critical to medical decision making have been carefully reviewed and included from a prior clinic note dated: January 26, 2023 Referring Provider: Klaudia Gomez Additional Clinicians involved in Jeannette Hurtado's care: DIAGNOSIS: Anemia, fatigue ASSESSMENT: 57 year old woman with anemia and associated fatigue. She has obstructive sleep apnea but is compliant with CPAP. We will work-up anemia further. PLAN: Start oral iron therapy Ferrous gluconate once daily 6 days / week If not tolerated, start IV iron. Recheck labs in 3 weeks Virtual visit 1 week after HPI: CASE HISTORY: Reverse Chronological Order 01/05/2023 CBC 9.2 > 11.2/35.6 < 277 11/12/2022 colonoscopy is negative. Recommended colonoscopy 10 years. Updated Visit, February 07, 2023: Iron deficiency identified.will trial oral iron and see if it helpd otherwise iv iron. Very fatigued. Reviewed all laboratories with her. Would consider IV iron therapy. Initial Visit, January 26, 2023: Jeannette Hurtado presents today Hematology and Oncology evaluation. She is a 57 year old female who presents on consultation for anemia. Hemoglobin in August 2022 was 11 but she presents with progressive fatigue even though she is compliant with CPAP. While anemia is mild and seem to have progressed and worsened. I reviewed outside laboratories but I do not have access to iron studies or ferritin. REVIEW OF SYSTEMS Per HPI and otherwise negative by full review of organ systems. ECOG PERFORMANCE STATUS: 1 PHYSICAL EXAMINATION: Vitals: BP 156/71 Pulse 64 Temp (Src) 97 (Temporal) Resp 18 Ht 5' 5.984 (1.68m) Wt 205 lb 9.6 oz (93.3kg) SpO2 99% BMI 33.20 kg/(m^2). Body surface area is 2.08 meters squared. Exam limited to gross visualization where appropriate. Gen.: This is an age-appropriate patient in no acute distress. Head: Appears atraumatic with no visible lesions. Eyes: Pupils equally round and reactive to light, extraocular muscles are intact. Neck: Supple. Respiratory: Appears to be respiring comfortably. Neurologic: Nonfocal to gross visualization. Alert and oriented 3. Psychiatric: No evidence of inappropriate anxiety or depression. Skin: Visible areas of skin without rash, lesions, wounds or petechiae. ALLERGIES: ALLERGIES Allergen Reactions Compazine [Prochlor* Latex Unknown MEDICATIONS: B-complex with vitamin C (VITAMIN B COMPLEX-C ORAL) Take by mouth. ascorbic acid (VITAMIN C ORAL) Take by mouth. sertraline (ZOLOFT) 25 mg tablet Take 25 mg by mouth once daily. esomeprazole (NEXIUM) 20 mg capsule Take 20 mg by mouth once daily. metFORMIN (GLUCOPHAGE) 1,000 mg tablet Take 1,000 mg by mouth twice daily with meals. albuterol HFA (PROVENTIL HFA) inhaler Inhale 2 Puffs as instructed every 6 hours as needed for wheezing/shortness of breath. LABORATORY VALUES: WBC (k/uL) Date Value 01/27/2023 7.04 RBC (m/uL) Date Value 01/27/2023 4.10 Hemoglobin (g/dL) Date Value 01/27/2023 10.8 (L) Hematocrit (%) Date Value 01/27/2023 34.4 (L) MCV (fL) Date Value 01/27/2023 83.9 MCH (pg) Date Value 01/27/2023 26.3 MCHC (g/dL) Date Value 01/27/2023 31.4 RDW-CV (%) Date Value 01/27/2023 14.9 Platelet Count (k/uL) Date Value 01/27/2023 203 MPV (fL) Date Value 01/27/2023 9.8 Glucose (mg/dL) Date Value 01/27/2023 133 (H) BUN (mg/dL) Date Value 01/27/2023 18 Creatinine (mg/dL) Date Value 01/27/2023 0.87 Sodium (mmol/L) Date Value 01/27/2023 141 Potassium (mmol/L) Date Value 01/27/2023 4.3 Chloride (mmol/L) Date Value 01/27/2023 102 CO2 (mmol/L) Date Value 01/27/2023 28 Protein, Total (g/dL) Date Value 01/27/2023 7.0 Albumin (g/dL) Date Value 01/27/2023 4.4 Calcium, Total (mg/dL) Date Value 01/27/2023 9.5 Alkaline Phosphatase (U/L) Date Value 01/27/2023 104 Bilirubin, Total (mg/dL) Date Value 01/27/2023 0.2 AST (U/L) Date Value 01/27/2023 46 (H) ALT (U/L) Date Value 01/27/2023 39 (H) DIAGNOSIS: (D50.8) Iron deficiency anemia secondary to inadequate dietary iron intake Plan: CBC + DIFF, COMP METABOLIC PANEL, IRON + TIBC, FERRITIN BLD, VITAMIN B12 BLOOD, FOLATE SERUM PAST MEDICAL HISTORY Diagnosis Date Anemia Anxiety Elevated glucose Hypercholesteremia Hypothyroidism Iron deficiency anemia secondary to inadequate dietary iron intake 02/07/2023 Migraines PAST SURGICAL HISTORY Procedure Laterality Date COLONOSCOPY 10/2022 PAST SURGICAL HISTORY OF Bilateral sweat glands removed PAST SURGICAL HISTORY OF Left Foot tendon x2 Social History Tobacco Use Smoking status: Never Smokeless tobacco: Never Vaping Use Vaping Use: Never used Substance Use Topics Alcohol use: Yes Drug use: Never FAMILY HISTORY Problem Relation Age of Onset Hypertension Mother Mental illness Mother Cancer Father Hypertension Father Heart disease Father I spent a total of 30 minutes on the date of the service which included preparing to see the patient, [id number] patient care, completing clinical documentation, obtaining and/or reviewing separately obtained history, performing a medically appropriate examination, counseling and educating the pat ient/family/caregiver, ordering medications, tests, or procedures, independently interpreting results (not separately reported), communicating results to the patient/family/caregiver, and care coordination (not separately reported). Jose Rose MD, CPE Hematology and Oncology Services Provided at: [place], [place] CC: Klaudia Gomez (Rosa Elena) [address] [facility] [id number] Klaudia Gomez MD [address] [facility] [phone] documented in this encounterGreen Cross [facility]09-13-2023 Instructions* Patient Instructions* Jose Rose MD - 01/26/2023 4:19 PM EDT Labs this week RTC 1 weeks after to recommend treatment or follow up. documented in this encounterGreen [facility]09-13-2023 History of Present illness Narrative* Jose Rose MD - 01/26/2023 4:11 PM EDT Images from the original note were not included. NAME: Jeannette Hurtado [facility] NO.: [id number] DATE OF SERVICE: January 26, 2023 Referring Provider: Klaudia Gomez Consultation requested by Dr. Gomez for an opinion regarding Ms. Jeannette Hurtado, and my final recommendations will be communicated back to the requesting physician by way of shared medical recordor letter via US mail. Additional Clinicians involved in Jeannette Hurtado's care: DIAGNOSIS: Anemia, fatigue ASSESSMENT: 57 year old woman with anemia and associated fatigue. She has obstructive sleep apnea but is compliant with CPAP. We will work-up anemia further. PLAN: Labs this week RTC 1 weeks after to recommend treatment or follow up. HPI: CASE HISTORY: Reverse Chronological Order 01/05/2023 CBC 9.2 > 11.2/35.6 < 277 defined at the [facility] in the regular closet there 11/12/2022 colonoscopy is negative. Recommended colonoscopy 10 years. Initial Visit, January 26, 2023: Jeannette Hurtado presents today Hematology and Oncology evaluation. She is a 57 year old female who presents on consultation for anemia. Hemoglobin in August 2022 was 11 but she presents with progressive fatigue even though she is compliant with CPAP. While anemia is mild and seem to have progressed and worsened. I reviewed outside laboratories but I do not have access to iron studies or ferritin. REVIEW OF SYSTEMS Per HPI and otherwise negative by full review of organ systems. ECOG PERFORMANCE STATUS: 1 PHYSICAL EXAMINATION: Vitals: BP 154/75 Pulse 74 Temp (Src) 97.2 (Temporal) Resp 16 Ht 5' 6 [per patient[ (1.68m) Wt 206 lb (93.4kg) SpO2 98% BMI 33.27 kg/(m^2). Body surface area is 2.09 meters squared. Exam limited to gross visualization where appropriate. Gen.: This is an age-appropriate patient in no acute distress. Head: Appears atraumatic with no visible lesions. Eyes: Pupils equally round and reactive to light, extraocular muscles are intact. Neck: Supple. Respiratory: Appears to be respiring comfortably. Neurologic: Nonfocal to gross visualization. Alert and oriented 3. Psychiatric: No evidence of inappropriate anxiety or depression. Skin: Visible areas of skin without rash, lesions, wounds or petechiae. ALLERGIES: ALLERGIES Allergen Reactions Compazine [Prochlor* Latex Unknown MEDICATIONS: B-complex with vitamin C (VITAMIN B COMPLEX-C ORAL) Take by mouth. ascorbic acid (VITAMIN C ORAL) Take by mouth. sertraline (ZOLOFT) 25 mg tablet Take 25 mg by mouth once daily. esomeprazole (NEXIUM) 20 mg capsule Take 20 mg by mouth once daily. metFORMIN (GLUCOPHAGE) 1,000 mg tablet Take 1,000 mg by mouth twice daily with meals. albuterol HFA (PROVENTIL HFA) inhaler Inhale 2 Puffs as instructed every 6 hours as needed for wheezing/shortness of breath. LABORATORY VALUES: WBC (k/uL) Date Value 01/13/2005 11.77 (A) RBC (M/uL) Date Value 01/13/2005 4.41 Hemoglobin (g/dL) Date Value 01/13/2005 12.6 Hematocrit (%) Date Value 01/13/2005 39.5 MCV (fL) Date Value 01/13/2005 89.6 MCH (pG) Date Value 01/13/2005 28.6 MCHC (%) Date Value 01/13/2005 31.9 (A) RDW-CV (%) Date Value 01/13/2005 13.6 Platelet Count (K/uL) Date Value 01/13/2005 254 MPV (fL) Date Value 01/13/2005 10.5 DIAGNOSIS: (D64.9) Anemia, unspecified type (primary encounter diagnosis) Plan: CBC + DIFF, COMP METABOLIC PANEL, IRON + TIBC, FERRITIN BLD, VITAMIN B12 BLOOD, FOLATE SERUM, RETIC COUNT PAST MEDICAL HISTORY Diagnosis Date Anemia Anxiety Elevated glucose Hypercholesteremia Hypothyroidism Migraines PAST SURGICAL HISTORY Procedure Laterality Date COLONOSCOPY 10/2022 PAST SURGICAL HISTORY OF Bilateral sweat glands removed PAST SURGICAL HISTORY OF Left Foot tendon x2 Social History Tobacco Use Smoking status: Never Smokeless tobacco: Never Vaping Use Vaping Use: Never used Substance Use Topics Alcohol use: Yes Drug use: Never FAMILY HISTORY Problem Relation Age of Onset Hypertension Mother Mental illness Mother Cancer Father Hypertension Father Heart disease Father I spent a total of 30 minutes on the date of the service which included preparing to see the patient, [id number] patient care, completing clinical documentation, obtaining and/or reviewing separately obtained history, performing a medically appropriate examination, counseling and educating the pat ient/family/caregiver, ordering medications, tests, or procedures, independently interpreting results (not separately reported), communicating results to the patient/family/caregiver, and care coordination (not separately reported). Jose Rose MD, CPE Hematology and Oncology Services Provided at: [place], [place] CC: Klaudia Gomez ([facility]) [address] [facility] [address] Klaudia Gomez MD [address] [facility] [address] [facility]* Encounter Date Diagnosis Assessment Notes Treatment Notes Treatment Clinical Notes Dec, Anemia, unspecified type (ICD-10 - D64.9) [facility] Other 08-23-2023 Evaluation note* Encounter Date Diagnosis Assessment Notes Treatment Notes Treatment Clinical Notes Dec, Adult hypothyroidism (ICD-10 - E03.9) Will recheck labs and refer back to Katina levels Dec, Type 2 diabetes mellitus with hyperglycemia (ICD-10 - E11.65) Repeat labs. Dec, Other fatigue (ICD-1 0 - R53.83) Discussed will chose cardiac v. hematology referral going forward. Dec, Anemia, unspecified type (ICD-10 - D64.9) Will repeat CBC. Note pallor on exam. Last Hgb was 11 in Dec, JUAN (obstructive sleep apnea) (ICD-10 - G47.33) Pt states she is compliant with her machine and uses it daily. [facility] Other 08-14-2023 Evaluation note* Encounter Date Diagnosis Assessment Notes Treatment Notes Treatment Clinical Notes Dec, Type 2 diabetes mellitus with hyperglycemia, without long-term current use of insulin (ICD-10 - E11.65) [facility] Other 07-07-2023 Evaluation note* Encounter Date Diagnosis Assessment Notes Treatment Notes Treatment Clinical Notes Nov, Other fatigue (ICD-10 - R53.83) R/o abnormalities in cardiac stand point. Vitals reassuring. Will followup w repeat labs on the CBC if all other findings are normal. Nov, Chronic cough (ICD-10 - R05.3) CXR not completed yet this year. Check and consider CT if needed. [facility] Other 06-14-2023 Evaluation note* Encounter Date Diagnosis Assessment Notes Treatment Notes Treatment Clinical Notes Oct, Chronic cough (ICD-10 - R05.3) [facility] Other 05-25-2023 Evaluation note* Encounter Date Diagnosis Assessment Notes Treatment Notes Treatment Clinical Notes September, Chronic cough (ICD-10 - R05.3) Discussed differential and exam. Has dry tight cough. Should improve w albuterol and steroids. September, Mild anemia (ICD-10 - D64.9) Pt agrees to referral for colonoscopy to investigate anemia September, Colon cancer screening (ICD-10 - Z12.11) as above September, Type 2 diabetes mellitus with hyperglycemia, without long-term current use of insulin (ICD-10 - E11.65) Increase dose of metformin and encouraged healthier diet. [facility] Other 04-17-2023 NotePROCEDURE: XR CSPINE MIN 4 VIEWS DATE: 08/28/2022 9:29 AM CDT COMPARISONS: None. CLINICAL INDICATION: 56 years Female Pain in cervical spine FINDINGS: There is no evidence of fractures, subluxation or other acute osseous abnormalities. There is mild scattered intervertebral disc space degenerative changes, facet degenerative changes and uncovertebral degenerative changes. The most significant finding is a spur of the posterior right lateral uncovertebral joint which appears to narrow the right C6-C7 neural foramen. No other osseous abnormalities identified The visualized soft tissues have a normal appearance in these projections. IMPRESSION: Scattered cervical spondylosis as discussed above. Posterior right lateral spur at C6-C7 Electronically authenticated by: ASHLEY PERLA Date: 2022-08-30 07:09[facility]04-10-2023 Evaluation note* Encounter Date Diagnosis Assessment Notes Treatment Notes Treatment Clinical Notes Aug, Wellness examination (ICD-10 - Z00.00) Discussed ongoing problems, diet and exercise and stress reduction. Aug, Hypercholesteremia (ICD-10 - E78.00) Due for blood work. Continue medication. We will call with lab results. Aug, Adult hypothyroidism (ICD-10 - E03.9) Chronic problem due for lab work Aug, Elevated glucose (IC D-10 - R73.09) . Patient requests refill on Contour next test strips to [facility]. Encouraged healthy diet and exercise to improve glucose readings Aug, Cervical pain (neck) (ICD-10 - M54.2) Ongoing issue with pain radiating from neck to right occipital area. Initiate treatment with x-ray of the neck. Aug, Anxiety, generalized (ICD-10 - F41.1) Due to increased stress offered to increase sertraline. Patient prefers to continue present dose. [facility] Other Chief complaint+Reason for visit Narrative* Chief Complaint 3 months referral Reason for Visit Chronic fatigue Coronary artery disease without angina pectoris Status post percutaneous transluminal coronary angioplasty ASHD (arteriosclerotic heart disease) Chronic GERD Depression Incontinence of urine in female Pain of left thumb Routine gynecological examination [facility] Work Phone: Chief complaint+Reason for visit Narrative* Chief Complaint 3 months referral M79.645 Reason for Visit Chronic fatigue Coronary artery disease without angina pectoris Status post percutaneous transluminal coronary angioplasty ASHD (arteriosclerotic heart disease) Chronic GERD Depression Incontinence of urine in female Pain of left thumb Routine gynecological examination [facility] Work Phone: evaluation note* Diagnosis Anemia, unspecified type- Primary [facility] Diagnosis Iron deficiency anemia secondary to inadequate dietary iron intake documented [facility] encounter [facility]* Diagnosis Iron deficiency anemia secondary to inadequate dietary iron intake- Primary [facility] encounter [facility]* Diagnosis Iron deficiency anemia secondary to inadequate dietary iron intake- Primary documented [facility] this encounter [facility]* Diagnosis Iron deficiency anemia secondary to inadequate dietary iron intake- Primary documented in this encounter [facility] noteNo InformationNortEnviance Other Evaluation noteNo assessment information available [facility] Work Phone: Evaluation note* Diagnosis Onset Date Resolution Status Abnormal cardiovascular stress test acute Anginal pain acute ASHD (arteriosclerotic heart disease) acute [facility] Work Phone: Evaluation note* Diagnosis OPENED IN ERROR- Primary To allow closing an encounter opened in error (used in SmartSet) documented in this encounter [facility]* Diagnosis Iron deficiency anemia secondary to inadequate dietary iron intake- Primary documented [facility] this encounter [facility]* Diagnosis Anemia, unspecified type- Primary documented [facility] this encounter [facility]* Diagnosis Iron deficiency anemia secondary to inadequate dietary iron intake- Primary documented [facility] this encounter [facility]* Diagnosis Iron deficiency anemia secondary to inadequate dietary iron intake- Primary documented [facility] this encounter [facility]* Diagnosis Iron deficiency anemia secondary to inadequate dietary iron intake- Primary documented [facility] this encounter [facility]* Diagnosis Anemia, unspecified type- Primary Iron deficiency anemia secondary to inadequate dietary iron intake Megaloblastic anemia due to vitamin B12 deficiency Other vitamin B12 deficiency anemia Folate deficiency Other B-complex deficiencies documented [facility] this encounter [facility]* Diagnosis Onset Date Resolution Status Chronic fatigue acute Coronary artery disease without angina pectoris acute Status post percutaneous tra nsluminal coronary angioplasty acute ASHD (arteriosclerotic heart disease) acute Chronic GERD acute Depression acute Incontinence of urine in female acute Pain of left thumb acute Routine gynecological examination acute [facility] Work Phone: Evaluation note* Diagnosis Iron deficiency anemia secondary to inadequate dietary iron intake- Primary [facility] this encounter [facility] Narrative - Reported* Type Description Date Medical History Migraines Medical History hypothyroid Medical History Hypercholesteremia Medical History Anxiety, generalized Medical History Elevated glucose Medical History Adult hypothyroidism Surgical History Bilateral Sweat glands removed Surgical History Left foot tendon x2 Hospitalization History see above [facility] Other History general Narrative - Reported* Type Description Date Medical History Migraines Medical History hypothyroid Medical History Hypercholesteremia Medical History Anxiety, generalized Medical History Elevated glucose Medical History Adult hypothyroidism Surgical History Bilateral Sweat glands removed Surgical History Left foot tendon x2 Surgical History Colonoscopy 10/2022 Hospitalization History see above [facility] Other Summary Purpose Family History Relationship Condition Age at Onset Recorded Date/T ha father Heart disease Unknown Unknown History of coronary artery bypass surgery Unknown Coronary artery disease Unknown History of coronary artery stent placement Unknown Malignant neoplasm of pancreas Unknown Not Specified Glaucoma Unknown Macular degeneration Unknown Relationship Condition Age at Onset Recorded Date/T ha father Heart disease Unknown Unknown History of coronary artery bypass surgery Unknown Coronary artery disease Unknown History of coronary artery stent placement Unknown Malignant neoplasm of pancreas Unknown mother Glaucoma Unknown Macular degeneration Unknown Hypertension Unknown brother Heart disease Unknown sister Glaucoma Unknown Advance Directives Advance Directive Response Recorded Date/ Time Advance Directives No April 10:53am Advance Directive Response Recorded Date/ Time Advance Directives No April 11:53am Reason for Referral Reason 05/03/23 @ 1:40 Fa tigmike, seeing hematology. Concerned about potential cardiac causes. Diagnosis 1 Chronic fatigue (R53 .82) Referral Organization [facility] [place] Referring Provider First Name Klaudia Referring Provider Last Name Jason Referring Provider Specialty [facility] Referred Organization [facility] Cardiology Referred Provider Jenifer Morgan Referred Address [address] [place] [address],[place] [address],[place], [place],[id number] Referred Provider Specialty Cardiovascul ar Disease Referral Priority Routine Referral Appointment Date 2023-05-03 General Notes Yanni Pringle 02:53:38 PM >received today, faxed P2P Yanni Pringle 04/06/2023 01:08:29 PM >pt scheduled Reason *FU 01/19 [place] office; mild anemia, fatigue - normal colonoscopy earlier this summer. Labs scanned in. Diagnosis 1 Anemia, unspecified type (D64.9) Referral Organization [facility] [place] Referring Provider First Name Klaudia Referring Provider Last Name Jason Referring Provider Specialty [facility] [email or web address] [facility] Referred Provider Jose Rose Referred Address [address] [place] [place], [place],[address] Referred Provider Specialty Hematology/O ncology Referral Priority Routine General Notes Yanni Pringle 03:31:52 PM >received today, attachments made, notes locked, referral faxed Reason Never had a c-s cope. has chronic mild anemia Diagnosis 1 Mild anemia (D64.9) Referral Organization [facility] [place] Referring Provider First Name Klaudia Referring Provider Last Name Jason Referring Provider Specialty [facility] Referred Organization [facility] Referred Provider Abhishek Rodriguez Referred Address [address] [place], [place],[address] Referred Provider Specialty General Surg bharat Referral Priority Routine General Notes Yanni Pringle 05:13:44 PM >received today, notes attached, waiting for notes to be locked Clinical Notes [id number] Medications Administered Section Inactive Administered Medications - up to 3 most recent administrations Medication Order MAR Action Action Date Dose Rate Site iron sucrose 300 mg in NaCl 0.9% 250 mL (VENOFER) 300 mg, INTRAVENOUS, at 166.67 mL/hr, Administer over 90 Minutes, ONCE, 1 dose, On Tue02/21/23 at 1330, Please conduct a 30 minute post dose observation. Refrigerate New Bag/Syringe/Bottle 02/21/2023 1:24 PM EDT 300 mg 166.67 mL/hr Inactive Administered Medications - up to 3 most recent administrations Medication Order MAR Action Action Date Dose Rate Site iron sucrose 300 mg in NaCl 0.9% 250 mL (VENOFER) 300 mg, INTRAVENOUS, at 166.67 mL/hr, Administer over 90 Minutes, ONCE, 1 dose, On Tue03/07/23 at 1330, Please conduct a 30 minute post dose observation. Refrigerate New Bag/Syringe/Bottle 03/07/2023 1:27 PM EDT 300 mg 166.67 mL/hr Chief Complaint and Reason for Visit Chief Complaint R00.2 Chief Complaint Referred By Klaudia rogers For Chronic Fat R00.2 r00.2 g93.32 Chief Complaint Referred By Klaudia rogers For Chronic Fat R00.2 1 Month Follow Up r00.2 g93.32 Abnormal Stress Chief Complaint Referred By Klaudia rogers For Chronic Fat R00.2 1 Month Follow Up r00.2 g93.32 Abnormal Stress Abnormal Stress Abnormal Stress Reason for Visit Abnormal cardiovascu lar stress test Anginal pain ASHD (arteriosclerotic heart disease) Additional Source Comments INFORMATION SOURCE (unrecogn ized section and content) DATE CREATED AUTHOR 03/24/2020 [facility] [place] DATE CREATED AUTHOR AUTHOR'S ORGANIZ ATION 09/02/2022 [facility] DATE CREATED AUTHOR AUTHOR'S ORGANIZ ATION 08/18/2023 [facility] DATE CREATED AUTHOR AUTHOR'S ORGANIZ ATION 10/31/2023 [facility] DATE CREATED AUTHOR AUTHOR'S ORGANIZ ATION 02/17/2024 [facility] DATE CREATED AUTHOR AUTHOR'S ORGANIZ ATION 02/22/2024 [facility] REASON FOR VISIT (unrecogniz ed section and content) Reason Comments Anemia New patient consult Reason Comments Anemia Follow up Specialty Diagnoses / Procedures Referred By Aysha yu Referred To Contact Diagnoses Iron deficiency anemia secondary to inadequate dietary iron intake Procedures IRON SUCROSE INJECTION PER 1 MG Jose Rose MD [address] [place] [address] [place] [address] [facility] [place] [place] [address] Referral ID Status Reason Start Date Expiration Date V isits Requested Visits Authorized [id number] Authorized 02/07/2023 05/15/2023 99 99 Reason Comments Anemia Reason Comments Medication Follow-up venofer Reason Onset Date Comments Opened In Error 09/27/2023 Source Comments (unrecognize d section and content) In the event this informatio n is protected by the Federal Confidentiality of Alcohol and Drug Abuse Patient Records regulations: The Federal rules restrict any use of the information to criminally investigate or prosecute any alcohol or drug abuse patient.[facility] the event this information is protected by the Federal Confidentiality of Alcohol and Drug Abuse Patient Records regulations: The Federal rules restrict any use of the information to criminally investigate or prosecute any alcohol or drug abuse patient.[facility] HospitalIn the event this information is protected by the Federal Confidentiality of Alcohol and Drug Abuse Patient Records regulations: The Federal rules restrict any use of the information to criminally investigate or prosecute any alcohol or drug abuse patient.[facility] HospitalIn the event this information is protected by the Federal Confidentiality of Alcohol and Drug Abuse Patient Records regulations: The Federal rules restrict any use of the information to criminally investigate or prosecute any alcohol or drug abuse patient.[facility] HospitalIn the event this information is protected by the Federal Confidentiality of Alcohol and Drug Abuse Patient Records regulations: The Federal rules restrict any use of the information to criminally investigate or prosecute any alcohol or drug abuse patient.[facility] HospitalIn the event this information is protected by the Federal Confidentiality of Alcohol and Drug Abuse Patient Records regulations: The Federal rules restrict any use of the information to criminally investigate or prosecute any alcohol or drug abuse patient.[facility] HospitalIn the event this information is protected by the Federal Confidentiality of Alcohol and Drug Abuse Patient Records regulations: The Federal rules restrict any use of the information to criminally investigate or prosecute any alcohol or drug abuse patient.[facility] HospitalIn the event this information is protected by the Federal Confidentiality of Alcohol and Drug Abuse Patient Records regulations: The Federal rules restrict any use of the information to criminally investigate or prosecute any alcohol or drug abuse patient.[facility] HospitalIn the event this information is protected by the Federal Confidentiality of Alcohol and Drug Abuse Patient Records regulations: The Federal rules restrict any use of the information to criminally investigate or prosecute any alcohol or drug abuse patient.[facility] HospitalIn the event this information is protected by the Federal Confidentiality of Alcohol and Drug Abuse Patient Records regulations: The Federal rules restrict any use of the information to criminally investigate or prosecute any alcohol or drug abuse patient.[facility] HospitalIn the event this information is protected by the Federal Confidentiality of Alcohol and Drug Abuse Patient Records regulations: The Federal rules restrict any use of the information to criminally investigate or prosecute any alcohol or drug abuse patient.[facility] HospitalIn the event this information is protected by the Federal Confidentiality of Alcohol and Drug Abuse Patient Records regulations: The Federal rules restrict any use of the information to criminally investigate or prosecute any alcohol or drug abuse patient.[facility] HospitalIn the event this information is protected by the Federal Confidentiality of Alcohol and Drug Abuse Patient Records regulations: The Federal rules restrict any use of the information to criminally investigate or prosecute any alcohol or drug abuse patient.[facility] HospitalIn the event this information is protected by the Federal Confidentiality of Alcohol and Drug Abuse Patient Records regulations: The Federal rules restrict any use of the information to criminally investigate or prosecute any alcohol or drug abuse patient.[facility] HospitalIn the event this information is protected by the Federal Confidentiality of Alcohol and Drug Abuse Patient Records regulations: The Federal rules restrict any use of the information to criminally investigate or prosecute any alcohol or drug abuse patient.[facility] HospitalIn the event this information is protected by the Federal Confidentiality of Alcohol and Drug Abuse Patient Records regulations: The Federal rules restrict any use of the information to criminally investigate or prosecute any alcohol or drug abuse patient.[facility] HospitalIn the event this information is protected by the Federal Confidentiality of Alcohol and Drug Abuse Patient Records regulations: The Federal rules restrict any use of the information to criminally investigate or prosecute any alcohol or drug abuse patient.[facility] Care Teams (unrecognized sec tion and content) 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 Start Date End Date Klaudia Gomez MD [address] [place] [address] PCP - General Family Medicine 01/19/23 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 Start Date End Date Klaudia Gomez MD [address] [place] [address] PCP - General Family Medicine 01/19/23 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 Start Date End Date Klaudia Gomez MD [address] [place] [address] PCP - General Family Medicine 01/19/23 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 Start Date End Date Klaudia Gomez MD [address] [facility] [place] [address] PCP - General Family Medicine 01/19/23 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 Start Date End Date Klaudia Gomez MD [address] [place] [address] PCP - General Family Medicine 01/19/23 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 Start Date End Date Klaudia Gomez MD [address] [facility] [place] [place] [address] PCP - General Family Medicine 01/19/23 Team Status: Active Member Role Status Dates Klaudia Gomez MD Primary Care Provider Active Team Status: Inactive Member Role Status Dates Klaudia Gomez MD Primary Care Provider Active Haresh Middleton MD Attending Provider Activ e Team Status: Inactive Member Role Status Dates Haresh Middleton MD Attending Provider Activ e Start: May 03, 2023 End: May 03, 2023 Team Status: Inactive Member Role Status Dates Klaudia Gomez MD Primary Care Provider Active Start: May 13, 2023 End: May 13, 2023 Haresh Middleton MD Attending Provider Activ e Start: May 13, 2023 End: May 13, 2023 Team Status: Inactive Member Role Status Dates Klaudia Gomez MD Primary Care Provider Active Start: June 17, 2023 End: June 17, 2023 Haresh Middleton MD Attending Provider Activ e Start: June 17, 2023 End: June 17, 2023 Jenifer Morgan MD Referring Provider Active Sta rt: June 17, 2023 End: June 17, 2023 Team Status: Inactive Member Role Status Dates Haresh Middleton MD Attending Provider Activ e Start: June 02, 2023 End: June 02, 2023 Team Status: Inactive Member Role Status Dates Klaudia Gomez MD Primary Care Provider Active Start: July 06, 2023 End: July 06, 2023 Haresh Middleton MD Attending Provider Activ e Start: July 06, 2023 End: July 06, 2023 Team Status: Active Member Role Status Dates Klaudia Gomez MD Primary Care Provide r, Attending Provider Active Start: July 07, 2023 Team Status: Inactive Member Role Status Ascencion Gomez MD Primary Care Provider Active Start: July 08, 2023 End: July 08, 2023 Haresh Middleton MD Attending Provider Activ e Start: July 08, 2023 End: July 08, 2023 Team Status: Active Member Role Status Dates Klaudia Gomez MD Primary Care Provider Active Start: July 08, 2023 Haresh Middleton MD Attending Provider, Other Provider Active Start: July 08, 2023 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 Start Date End Date Klaudia Gomez MD [address] [facility] [phone] PCP - General Family Medicine 01/19/23 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 Start Date End Date Klaudia Gomez MD [address] [facility] [address] PCP - General Family Medicine 01/19/23 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 Start Date End Date Klaudia Gomez MD [address] [facility] [address] PCP - General Family Medicine 01/19/23 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 Start Date End Date Klaudia Gomez MD [address] [facility] [address] PCP - General Family Medicine 01/19/23 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 Start Date End Date Klaudia Gomez MD [address] [facility] [phone] PCP - General Family Medicine 01/19/23 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 Start Date End Date Klaudia Gomez MD [address] [facility] [phone] PCP - General Family Medicine 01/19/23 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 Start Date End Date Klaudia Gomez MD [address] [facility] [address] PCP - General Family Medicine 01/19/23 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 Start Date End Date Klaudia Gomez MD [address] [place] [address] PCP - General Family Medicine 01/19/23 Team Status: Active Member Role Status Dates Haresh Middleton MD [employer]ed [employer] 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 Klaudia Gomez MD Primary Care Provider Active Team Status: Active Member Role Status Dates Klaudia Gomez MD Primary Care Provider Active Start: December 21, 2023 Jose Rose MD Attending Provider Active Start: December 21, 2023 Team Status: Inactive Member Role Status Dates Klaudia Gomez MD Primary Care Provider Active Start: February 06, 2024 End: February 06, 2024 Haresh Middleton MD Attending Provider Active Start: January End: February 06, 2024 Team Status: Inactive Member Role Status Dates Klaudia Gomez MD Primary Care Provide r, Attending Provider Active Start: February 08, 2024 End: February 08, 2024 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 Start Date End Date Klaudia Gomez MD [address] [place] [phone] PCP - General Family Medicine 01/19/23 Team Status: Inactive Member Role Status Dates Klaudia Gomez MD Primary Care Provide r, Attending Provider Active Start: February 20, 2024 End: February 20, 2024 Goals (unrecognized section and content) Goals may be documented in a n alternate section FOR RECORDS PERTAINING TO PATIENTS WHO ARE OR HAVE BEEN ENROLLED IN A CHEMICAL DEPENDENCY/SUBSTANCEABUSE PROGRAM, SOME INFORMATION MAY BE OMITTED. This clinical summary was aggregated from multiple sources. Caution should be exercised in using it in the provision of clinical care. This summary normalizes information from multiple sources, and as a consequence, information in this document may materially change the coding, format and clinical context of patient data. In addition, data may be omitted in some cases. CLINICAL DECISIONS SHOULD BE BASED ON THE PRIMARY CLINICAL RECORDS. [facility]. provides no warranty or guarantee of the accuracy or completeness of information in this document.
[2024-02-27 07:35] LABS: Alanine Aminotransferase 30 U/L (14-59); Albumin Globulin Ratio 1.1; Albumin Level 3.9 g/dL (3.4-5.0); Alkaline Phosphatase 110 U/L (46-116); Anion Gap 12.7; Aspartate Amino Transferase 41 U/L (15-37); Bilirubin Total 0.7 mg/dL (0.2-1.0); Calcium 9.6 mg/dL (8.5-10.1); Carbon Dioxide 29.5 mmol/L (21.0-32.0); Chloride 100 mmol/L (98-107); Chol HDL Ratio 2.5; Cholesterol 130 mg/dL (<=200); Estimated GFR (African America 53 (>=60 mL/min/1.73m^2); Estimated GFR (Non-African Ame 44 (>=60 mL/min/1.73m^2); Globulin 3.6 g/dL; Glucose 111 mg/dL (74-106); HDL Cholesterol 51 mg/dL (40-60); LDL Cholesterol Calculated 55.8 mg/dL; Potassium 4.2 mmol/L (3.5-5.1); Sodium 138 mmol/L (136-145); Total Protein 7.5 g/dL (6.4-8.2); Triglycerides 116 mg/dL (<=150); VLDL CHOLESTEROL 23.2 mg/dL
[2024-02-27 07:50] LABS: Basophils Absolute Auto 0.1 10^3/uL (0.0-0.1); Basophils Percent Auto 0.9 % (0.2-2.0); Eosinophils Absolute Auto 0.3 10^3/uL (0.0-0.7); Eosinophils Percent Auto 3.5 % (0.9-7.0); Hematocrit 37.5 % (36.0-48.0); Hemoglobin 12.4 g/dL (12.0-16.0); Immature Granulocytes Abs Auto 0.02 10^3/uL (0.00-0.03); Immature Granulocytes Pct Auto 0.2 % (0.0-0.5); Lymphocytes Absolute Auto 2.5 10^3/uL (1.2-3.8); Mean Corpuscular HGB Conc 33.1 g/dL (29.9-35.2); Mean Corpuscular Hemoglobin 30.8 pg (26.7-34.0); Mean Corpuscular Volume 93.3 fL (81.0-99.0); Mean Platelet Volume 10.1 fL (9.5-13.5); Monocytes Absolute Auto 0.6 10^3/uL (0.3-0.8); Monocytes Percent Auto 7.1 % (1.7-12.0); Neutrophils Absolute Auto 5.4 10^3/uL (1.4-6.5); Neutrophils Percent Auto 60.3 % (43.0-75.0); Platelet Count 243 10^3/uL (150-450); Red Blood Count 4.02 10^6/uL (4.20-5.40); Red Cell Distribution Width 13.1 % (11.0-15.0)
[2024-02-27 08:45] LABS: Microalbumin Urine Random <1.3 mg/dL (<=30.0)
[2024-02-27 09:08] LABS: Estimated Average Glucose 128 mg/dL; Glycohemoglobin A1C 6.1 % (4.5-6.2)
== END 2024-02-27 06:56 | disposition home or self-care (01) ==
PROVIDERS: PCP Family Medicine; Visit Provider Family Medicine
DX: Z00.00 Encounter for general adult medical examination without abnormal findings (principal); I25.10 Atherosclerotic heart disease of native coronary artery without angina pectoris
CPT/HCPCS: 36415; 80053; 80061; 82043; 83036; 85025

== ENCOUNTER 2024-05-08 09:49 | Outpatient (OUT) | payer BC, SELFPAY ==
--- OUTSIDE RECORDS SUMMARY | 2024-05-08 09:52 | XMS_ITS | CCD ---
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 Primary Care Unavailable JASON, DR KLAUDIA Friedman Consulting Unavailable GOMEZ, DR KLAUDIA Friedman Admitting Unavailable KARASIK ., DR MCDANIEL Consulting Unavailabl e GOMEZ, DR KLAUDIA Friedman Primary Care Unavailable KARASIK ., DR MCDANIEL Admitting Unavailabl e KARASIK ., DR MCDANIEL Attending Unavailabl e WEST, DR JOYCE Corrigan Consulting Unavailable GOMEZ, DR KLAUDIA Friedman Admitting Unavailable GOMEZ, DR KLAUDIA Friedman Attending Unavailable GOMEZ, DR KLAUDIA Friedman Consulting Unavailable GOMEZ, DR KLAUDIA Friedman Primary Care Unavailable ASHLEY PERLA Consulting Unavailable Klaudia Gomez MD Primary Care Provider MD Klaudia Gomez Primary Care Provider MD Haresh Middleton Attending Provider Haresh Middleton Unavailable MD Jenifer Morgan Referring Provider ALEXIA MCKEON Attending Unavailable KLAUDIA GOMEZ Primary Care Unavailable Klaudia Gomez MD Primary Care Provider [phone] Haresh Middleton Admitting Klaudia Metzger Primary Care Unavailable Eddie Jenifer Referring Unavailable Haresh Middleton Attending Klaudia Metzger Primary Care Unavailable Haresh Middleton Attending Greg Middleton, Haresh Villeda Admitting Unavai lable Emi, Haresh Villeda Attending Haresh Galvez Admitting Unavai labKlaudia Healy E Primary Care Unavailable Klaudia Gomez Attending Unavailable Klaudia Gomez E Admitting Unavailable Jason, Klaudia E Primary Care Unavailable Jason, Klaudia E Primary Care Unavailable Haresh Middleton Admitting Unavai lable Emi, Haresh Villeda Attending Klaudia Metzger Primary Care Unavailable Haresh Middleton Attending Haresh Galvez Admitting MD Klaudia Metzger Primary Care Provider MD Klaudia Gomez Attending Provider Klaudia Gomez MD Primary Care Provider MAITE MERRITT Referring Unavailable GOMEZ, KLAUDIA E Primary Care Unavailable GOMEZ, KLAUDIA E Primary Care Unavailable GOMEZ, KLAUDIA E Primary Care Unavailable ABHYANKAR, JOSE Referring Unavailable GOMEZ, KLAUDIA E Primary Care Unavailable ABHYANKAR, JOSE Referring Unavailable GOMEZ, KLAUDIA E Primary Care Unavailable ABHYANKAR, JOSE Referring Unavailable GOMEZ, KLAUDIA E Primary Care Unavailable ABHYANKAR, JOSE Attending Unavailable JASON, KLAUDIA E Primary Care Unavailable ABHYANKAR, JOSE Referring Unavailable GOMEZ, KLAUDIA E Primary Care Unavailable MAITE MERRITT Attending Unavailable ABHYANKAR, JOSE Referring Unavailable GOMEZ, KLAUDIA E Primary Care Unavailable ABHYANKAR, JOSE Referring Unavailable GOMEZ, KLAUDIA E Primary Care Unavailable ABHYANKAR, JOSE Referring Unavailable GOMEZ, KLAUDIA E Primary Care Unavailable ABHYANKAR, JOSE Attending Unavailable GOMEZ, KLAUDIA E Primary Care Unavailable GOMEZ, KLAUDIA E Primary Care Unavailable GOMEZ, KLAUDIA E Primary Care Unavailable GOMEZ, KLAUDIA E Primary Care Unavailable ABHYANKAR, JOSE Referring Unavailable MAITE MERRITT Referring Unavailable GOMEZ, KLAUDIA E Primary Care Unavailable JASON, KLAUDIA E Primary Care Unavailable MAITE MERRITT Referring Unavailable GOMEZ, KLAUDIA E Primary Care Unavailable MAITE MERRITT Referring Unavailable KLAUDIA GOMEZ Primary Care Unavailable RUBEN WIGGINS Attending Unavailable JOSE ROSE Referring Unavailable KLAUDIA GOMEZ Primary Care Unavailable MAITE MERRITT Referring Unavailable TESS JACKSON Attending Unavailable KLAUDIA GOMEZ Referring Unavailable PURA LARA Attending Unavailable PURA LARA Attending Unavailable PURA LARA Attending Unavailable Allergies Allergy Classification Reported Allergen(s) Allergy Type Date of Onset Reaction(s) Facility Latex (1 source) Latex Substance Allergy 023 Unknown [facility] Prochlorperazine (1 source) Prochlorperazine Drug Allergy [facility] (6 sources) Prochlorperazine; Translations: [Compazine] Drug Allergy 017 anxious feelings [facility] Repository (20 sources) Latex; Translations: [LATEX] Drug allergy 018 Unknown [facility] (1 source) Allergies Reconciled Propensity to adverse reactions Unknown [facility] Other (8 sources) Compazine *ANTIPSYCHOTICS/ANT IMANIC AGENTS* Propensity to adverse reactions Comment:psych ological changes--pt states she tries to climb souza [employer] Other (1 source) patient allergy list reviewed by nurse or physicia Propensity to adverse reactions 018 Comment:Done [employer] Other (20 sources) Prochlorperazine; Translations: [PROCHLORPERAZINE EDISYLATE] Drug Allergy 005 [facility] (13 sources) Prochlorperazine; Translations: [PROCHLORPERAZINE] Drug Allergy 012 Anxiety, Hives, Palpitations, Rash, Unknown [facility] (1 source) Latex Drug allergy (disorder) 024 [facility] Repository (7 sources) Latex Allergy to substance 023 Hives, Rash, Unknown [facility] Medications Current Medications Medication Drug Class(es) Dates Sig (Normalized) Sig (Original) [id number] 200 actuat albuterol 0.09 mg/actuat metered dose inhaler (20 sources) beta2-Adrenergic Agonist Start: 07-06-2023 End: 08-29-2023 take 2 puff(s) by inhalation every four hours as needed Albuterol Sulfate Active 2 INH INHALATION Every 4 hours 2 August 29, 2023 11:12am [employer] puff Inhalation [...] puff(s) by in halation every six hours albuterol HFA 90 mcg/act inhaler Inhale 2 puffs every 6 (six) hours if needed Active take 2 puff(s) by in halation every [...] mouth. Active take 1 tablet by phu every twenty-four hours Vitamin C 250 MG 1 tablet Orally Once a day Active ascorbic acid (V ITAMIN C ORAL) Take by mouth. 0 Active Comment on above: Take by mouth. ascorbic acid (Vitamin C) 500 mg/mL oral liquid (7 sources) ascorbic acid (Vitamin C) 500 mg/mL oral liquid Take by mouth. Active aspirin 81 mg chewable tablet (20 sources) Platelet Aggregation Inhibitor, Nonsteroidal Anti-inflammatory Drug Start: 08-30-2023 Aspirin Low Dose 81 MG chewable tablet Chew 81 mg 1 (one) time 08/30/2023 Active Start: 07-08-2023 End: 08-16-2023 take 81 mg by mouth once daily Aspirin Discontinued 81 MG PO Daily August 12, 2023 8:13am August 16, 2023 8:18am aspirin, enteric coated (ASPIRIN, ENTERIC COATED) 81 mg EC tablet Take 81 mg by mouth. Active atorvastatin 40 mg oral tablet (20 sources) HMG-CoA Reductase Inhibitor Start: 07-08-2023 atorvastatin (LIPITO R) 40 mg tablet Atorvastatin Active 40 MG PO Daily July 08, 2023 12:00am 07/08/2023 Active Start: 07-08-2023 End: 09-08-2023 take 40 mg by mouth once daily Atorvastatin Active 40 MG PO Daily September 08, 2023 4:53pm atorvastatin (Li pitor) 20 MG tablet 1 (one) time each day at the same time. Active B Complex Vitamins (vitamin B complex) tablet (7 sources) B Complex Vitami ns (vitamin B complex) tablet as directed Orally Active B-complex with vitamin C ( TAMIN B COMPLEX-C ORAL) (20 sources) B-complex with v itamin C (VITAMIN B COMPLEX-C ORAL) Take by mouth. Active B-complex with v itamin C (VITAMIN B COMPLEX-C ORAL) Take by mouth. 0 Active Comment on above: Take by mouth. celecoxib 200 mg oral capsule (20 sources) Nonsteroidal Anti-inflammatory Drug Start: 4 take 1 capsule by mouth once daily celecoxib (CeleBREX) 200 MG capsule Take 200 mg by mouth Daily 09/22/2023 Active clopidogrel 75 mg oral tablet (19 sources) P2Y12 Platelet Inhibitor Start: 4 take 1 tablet by mouth in the morning Plavix 75 MG tablet Take 75 mg by mouth in the morning. 11/23/2023 Active Start: 10-31-2023 End: 12-27-2023 Clopidogrel (Plavix) 75 mg t ablet Discontinued 75 MG PO Daily 90 October 31, 2023 12:00am December 27, 2023 [...] Take 20 mg by mouth once daily. Eucalyptus Oil oil (7 sources) Eucalyptus Oil o il as directed Active folic acid 1 mg oral tablet (20 sources) Start: 10-03-2023 End: 12-20-2024 take 1 tablet by mouth in the morning folic acid (Folvite) 1 MG tablet Take 1 mg by mouth in the morning. 10/03/2023 10/02/2024 Active Homeopathic Products (EvoApp) oil (7 sources) Homeopathic Prod ucts (EvoApp) oil as directed Inhalation Active lisinopril 5 mg oral tablet (20 sources) Angiotensin Converting Enzyme Inhibitor Start: 07-08-2023 End: 10-31-2023 take 1 tablet by mouth once daily lisinopril (ZESTRIL) 5 mg tablet Take 5 mg by mouth once daily. 07/08/2023 Active losartan potassium 50 mg oral tablet (13 sources) Angiotensin 2 Receptor Brii Start: 02-06-2024 take 50 mg by mouth once daily Losartan Active 50 MG PO Daily 90 90 February 06, 2024 12:00am Start: 10-31-2023 End: 02-06-2024 take 25 mg by mouth once daily Losartan Discontinued 2 5 MG PO Daily 90 90 December 30, 2023 8:04am February 06, 2024 2:22pm metFORMIN (20 sources) Biguanide Start: 10-13-2023 Metformin Acti ve 0 .ROUTE .COMPLEX 180 October 13, 2023 8:44am TAKE 1 TABLET TWICE A DAY WITH MEALS Start: 10-07-2022 End: 10-13-2023 take 1 tablet by mouth in the morning metFORMIN (Glucophage) 1000 MG tablet Take 1,000 mg by mouth in the morning and 1,000 mg in the evening. Take with meals. 12/14/2022 Active take 1 tablet by phu th every twenty-four hours metFORMIN HCl 1000 MG 1 tablet with a meal Orally Once a day Not-Taking take 1 tablet by phu th twice daily metFORMIN HCl 850 mg TAKE 1 TABLET BY MOUTH TWICE DAILY for 90 Active Comment on above: Take 1,000 mg by phu th twice daily with meals. Multiple Vitamins-Minerals (Multi Complete) capsule (7 sources) Multiple Vitamins-Minerals (Multi Complete) capsule Orally Active nitroglycerin 0.4 mg sublingual tablet (20 sources) Nitrate Vasodilator Start: 07-08-19 End: 08-15-19 take 1 tablet under the tongue every twenty-four hours as needed nitroglycerin (Nitrostat) 0.[address] 0.4 mg under the tongue Daily as needed 07/08/2023 Active predniSONE 20 mg oral tablet (2 sources) Start: 10-28-19 take 2 tablets by mouth every twenty-four hours predniSONE 20 MG 2 tablets Orally Once a day for 5 days Oct, Active Start: 10-07-2022 take 2 tablets by mo [facility] every twenty-four hours predniSONE 20 MG 2 [...] Take 25 mg by mouth once daily. solifenacin succinate 10 mg oral tablet (4 sources) Cholinergic Muscarinic Antagonist Start: 4 End: 5 take 1 tablet by mouth once daily solifenacin (VESIcare) 10 MG tablet Indications: Mixed urge and stress incontinence Take 1 tablet (10 mg) by mouth Daily Swallow tablet whole; do not crush, chew, or split. 30 tablet 5 04/11/2024 04/11/2025 Active Completed/Discontinued Medications Medication Drug Class(es) Dates Sig (Normalized) Sig (Original) amoxicillin 875 mg / clavulanate 125 mg oral tablet (1 source) Penicillin-class Antibacterial Start: 09-13-2020 take 1 tablet by mouth every twelve hours Amoxicillin-Pot Clavulanate 875-125 MG 1 tablet Orally every 12 hrs for 10 day(s) September, Not-Taking dexamethasone 1 mg/ml / neomycin 3.5 mg/ml / polymyxin b [id number] unt/ml ophthalmic suspension (1 source) Aminoglycoside Antibacterial, Polymyxin-class Antibacterial, Corticosteroid Start: 02-21-2017 take 2 drop(s) into the eye(s) three times daily Maxitrol [id number] 2 drops into affected eye Ophthalmic Three times a day for 7 days Feb, Not-Taking famotidine 20 mg oral tablet (5 sources) Histamine-2 Receptor Antagonist Start: 01-19-2024 End: 04-18-2024 take 1 tablet by mouth at bedtime famotidine (Pepcid) 20 MG tablet Indications: LPRD (laryngopharyngea l reflux disease) Take 1 tablet (20 mg) by mouth at bedtime 90 tablet 01/19/2024 03/22/2024 Discontinued Start: 10-31-2023 End: 02-06-2024 take 1 tablet by mouth once daily at bedtime Famotidine (Pepcid) 40 mg tablet Discontinued 40 MG PO Daily at bedtime October 31, 2023 12:00am February 06, 2024 2:01pm 5 ml iron sucrose 20 mg/ml injection (5 sources) Parenteral Iron Replacement Start: 04-10-2024 End: 04-10-2024 200 mg, INTRAVENOUS, ONCE, 1 dose, On Tu04/10/24 at 1530, Please conduct a 30 minute post dose observation. Start: 04-05-2024 End: 04-05-2024 200 mg, INTRAVENOUS, ONCE, 1 dose, On Sonia 04/05/24 at 1530, Please conduct a 30 minute post dose observation. Start: 04-03-2024 End: 04-03-2024 200 mg, INTRAVENOUS, ONCE, 1 dose, On Tue04/03/24 at 1530, Please conduct a 30 minute post dose observation. Start: 03-29-2024 End: 03-29-2024 200 mg, INTRAVENOUS, ONCE, 1 dose, On Sonia 03/29/24 at 1530, Please conduct a 30 minute post dose observation. Start: 03-27-2024 End: 03-27-2024 200 mg, INTRAVENOUS, ONCE, 1 dose, On Tue03/27/24 at 1530, Please conduct a 30 minute post dose observation. Ketoprofen (1 source) Nonsteroidal Anti-inflammatory Drug Ketoprofen Not-Taking levothyroxine (1 source) l-Thyroxine Levothyroxine Sodium Not-Taking methylPREDNISolone 4 mg oral tablet (1 source) Corticosteroid Start : 09-13 Medrol 4 MG as directed Orally for 6 days September, Not-Taking metoprolol tartrate 50 mg oral tablet (1 source) beta-Adrenergic Brii take 1 tablet by mouth every twelve hours Lopressor 50 MG 1 tablet with food Orally Twice a day Not-Taking omeprazole 40 mg delayed release oral capsule (3 sources) Proton Pump Inhibitor Start : 01-18 End: 04-18 take 1 capsule by mouth before mealtime omeprazole (PriLOSEC) [address] capsule Indications: LPRD (laryngopharyngea l reflux disease) Take 1 capsule (40 mg) by mouth in the morning. Take before meals. Do not crush or chew.. 90 capsule 01/19/2024 03/22/2024 Discontinued ticagrelor 90 mg oral tablet (15 sources) Start : 07-08 End: 03-14 take 1 tablet by mouth twice daily ticagrelor (BRILINTA) 90 mg tablet Take 90 mg by mouth two times a day. 07/08/2023 03/14/2024 Discontinued Triamcinolone (12 sources) Corticosteroid Start : 08-05 KENALOG - 10 mg Jul, 40 mg vitamin b12 1 mg/ml injectable solution (8 sources) Vitamin B12 Start : 04-05 End: 04-05 inject 1 dose by intramuscular injection once 1,000 mcg, INTRAMUSCULAR, ONCE, 1 dose, On Sonia 04/05/24 at 1530 Start: 03-14-2024 End: 03-14-2024 inject 1 dose by intramuscular injection once 1,000 mcg, INTRAMUSCULAR, ONCE, 1 dose, On 03/14/24 at 1500 Start: 02-15-2024 End: 02-15-2024 inject 1 dose by intramuscular injection once 1,000 mcg, INTRAMUSCULAR, ONCE, 1 dose, On 02/15/24 at 1500 Start: 01-18-2024 End: 01-18-2024 inject 1 dose by intramuscular injection once 1,000 mcg, INTRAMUSCULAR, ONCE, 1 dose, On 01/18/24 at 1430 Start: 12-21-2023 End: 12-21-2023 cyanocobalamin 1,000 mcg inj ection Start: 11-28-2023 End: 11-28-2023 cyanocobalamin 1,000 mcg inj ection Start: 10-31-2023 End: 10-31-2023 cyanocobalamin 1,000 mcg inj ection Start: 10-03-2023 End: 10-03-2023 cyanocobalamin 1,000 mcg inj ection Problems Active Problems Problem Classification Problem Date Documented Da te Episodic/Chronic Anxiety disorders (20 sources) Generalized anxiety disorder; Translations: [Generalized anxiety disorder] Onset: 10-25-2023 Chronic Blindness and vision defects (7 sources) Visual impairment; Translations: [Unspecified visual loss] Onset: 04-29-2011 10-25-2023 Chronic Coronary atherosclerosis and other heart disease (16 sources) Angina pectoris; Translations: [Angina pectoris, unspecified] Onset: 07-08-2023 07-08-2023 Chronic Coronary atherosclerosis and other heart disease (4 sources) Patient post percutaneous transluminal coronary angioplasty; Translations: [Coronary angioplasty status] 07-13-2023 Episodic Deficiency and other anemia (3 sources) Anemia, unspecified Episodic Deficiency and other anemia (3 sources) Anemia; Translations: [Anemia, unspecified] 01-26-2023 Episodic Deficiency and other anemia (3 sources) Iron deficiency anemia; Translations: [Iron deficiency anemia, unspecified] Episodic Deficiency and other anemia (1 source) Iron deficiency anemia, unspecified Episodic Deficiency and other anemia (2 sources) Megaloblastic anemia due to vitamin B>12< deficiency; Translations: [Other megaloblastic anemias, not elsewhere classified] 12-21-2023 Episodic Diabetes mellitus with complications (20 sources) Type 2 diabetes mellitus with hyperglycemia; Translations: [Type 2 diabetes mellitus] Onset: 02-19-2022 Chronic Disorders of lipid metabolism (20 sources) Pure hypercholesterolemia; Translations: [Pure hypercholesterolemia, unspecified] Onset: 02-03-2018 Resolved: 06-28-2019 Chronic Esophageal disorders (12 sources) Esophageal reflux finding; Translations: [Esophageal reflux] Onset: 02-03-2018 Resolved: 06-28-2019 02-08-2024 Chronic Genitourinary symptoms and ill-defined conditions (10 sources) Urinary incontinence; Translations: [Unspecified urinary incontinence] 02-08-2024 Chronic Genitourinary symptoms and ill-defined conditions (8 sources) Dysuria; Translations: [Dysuria] Episodic Headache; including migraine (1 source) Headache; including migraine Onset: 08-17-2023 Malaise and fatigue (11 sources) Fatigue; Translations: [Chronic fatigue, unspecified] Chronic Malaise and fatigue (15 sources) Other fatigue; Translations: [Fatigue] Onset: 02-17-2022 Episodic Menopausal disorders (15 sources) Postmenopausal bleeding; Translations: [Postmenopausal bleeding] Onset: 10-25-2023 10-25-2023 Chronic Mood disorders (4 sources) Depressive disorder; Translations: [Depression] 02-08-2024 Chronic Nausea and vomiting (1 source) Vomiting Onset: 08-17-2023 Episodic Noninfectious gastroenteritis (1 source) Noninfective gastroenteritis and colitis, unspecified; Translations: [Noninfective gastroenteritis and colitis, unspecified] Onset: 08-17-2023 Episodic Nutritional deficiencies (2 sources) Folic acid deficiency; Translations: [Deficiency of other [...] mass index (BMI) 32.0-32.9, adult] Chronic Other nutritional; endocrine; and metabolic disorders (7 sources) Obesity; Translations: [Obesity, unspecified] Onset: 10-25-2023 10-25-2023 Chronic Other screening for suspected conditions (not mental disorders or infectious disease) (20 sources) Encounter for screening mammogram for malignant neoplasm of breast; Translations: [Encounter for screening for malignant neoplasm of cervix] Onset: 02-03-2018 Episodic Other upper respiratory infections (15 sources) Chronic sinusitis; Translations: [Chronic sinusitis, unspecified] Onset: 04-29-2011 10-25-2023 Chronic Prolapse of female genital organs (6 sources) Midline cystocele; Translations: [Cystocele, midline] 03-22-2024 Chronic Rehabilitation care; fitting of prostheses; and adjustment of devices (6 sources) Patient encounter status; Translations: [Encounter for fitting and adjustment of other specified devices] 03-22-2024 Chronic Residual codes; unclassified (5 sources) Obstructive sleep apnea (adult) (pediatric); Translations: [OBSTRUCTIVE SLEEP APNEA] Onset: 03-10-2022 Chronic Residual codes; unclassified (14 sources) Obstructive sleep apnea syndrome; Translations: [Obstructive sleep apnea (adult) (pediatric)] Onset: 10-25-2023 10-25-2023 Chronic Residual codes; unclassified (8 sources) Postmenopausal [...] abdominal pain] Onset: 02-09-2018 Resolved: 06-28-2019 Episodic Acquired foot deformities (7 sources) Acquired cavus deformity of left foot; Translations: [Other acquired deformities of left foot] Onset: 10-25-2023 10-25-2023 Episodic Allergic reactions (15 sources) Contact dermatitis due to plants; Translations: [Unspecified contact dermatitis due to plants, except food] Onset: 10-25-2023 10-25-2023 Episodic Cancer of cervix (15 sources) Cervicovaginal cytology: Low grade squamous intraepithelial lesion; Translations: [Low grade squamous intraepithelial lesion on cytologic smear of cervix (LGSIL)] Onset: 10-25-2023 10-25-2023 Episodic Cardiac dysrhythmias (4 sources) Palpitations; Translations: [Palpitations] Onset: 05-13-2023 Episodic Deficiency and other anemia (20 sources) Iron deficiency anemia secondary to inadequate dietary iron intake; Translations: [Other iron deficiency anemias] Onset: 02-07-2023 02-07-2023 Episodic Deficiency and other anemia (1 source) Other iron deficiency anemias; Translations: [Iron deficiency anemia secondary to inadequate dietary iron intake] Onset: 02-07-2023 Episodic Diabetes mellitus without complication (20 sources) Hyperglycemia; Translations: [Other abnormal glucose] Onset: 09-02-2022 Episodic Headache; including migraine (8 sources) Migraine [...] nerve] Onset: 02-03-2018 Resolved: 06-28-2019 Chronic Other skin disorders (20 sources) Hidradenitis; Translations: [Hidradenitis suppurativa] Onset: 01-13-2005 01-13-2005 Episodic Unclassified (3 sources) Chronic cough R05.3 Unclassified (2 sources) Chronic fatigue disorder G93.32 Unclassified (1 source) History of COVID-19 Z86.16 Viral infection (8 sources) Disease caused by 2019-nCoV; Translations: [COVID-19] Results Test Name Value Interpretation Reference Range Facility Urinalysis macro (dipstick) panel (U)on 04-23-2024 Bilirubin, UA Negative Negative - 4(70) +++ mg/dL [facility] Blood, UA Negative Negative - 50 Tima/mcL [facility] Clarity, UA Clear [facility] Color, UA Light Yellow [facility] Glucose, UA Negative Negative - 2000(110) ++++ mg/dL [facility] Interpretation and review of laboratory results Normal [facility] Ketones, UA Negative Negative - 160(16) ++++ mg/dL [facility] Leukocytes, UA Many Negative - 500+++ Delvin/mcL [facility] Nitrite, UA Negative Negative - Positive [facility] pH, UA 5 5 - 9 [facility] Protein, UA Negative Negative - 2000(20) ++++ mg/dL [facility] Spec Grav, UA 1.01 1 - 1.03 [facility] Urobilinogen, UA 1.0 0.2 - 12 mg/dL [facility] Urinalysis macro (dipstick) panel (U)on 04-11-2024 Bilirubin, UA Negative Negative - 4(70) +++ mg/dL [facility] Blood, UA Negative Negative - 50 Tima/mcL [facility] Clarity, UA Clear [facility] Color, UA Dark Sridevi [facility] Glucose, UA Negative Negative - 1999(110) ++++ mg/dL [facility] Interpretation and review of laboratory results Normal [facility] Ketones, UA Negative Negative - 160(16) ++++ mg/dL [facility] Leukocytes, UA Negative Negative - 500+++ Delvin/mcL [facility] Nitrite, UA Negative Negative - Positive [facility] pH, UA 5 5 - 9 [facility] Protein, UA Negative Negative - 1999(20) ++++ mg/dL [facility] Spec Grav, UA 1.015 1 - 1.03 [facility] Urobilinogen, UA 1.0 0.2 - 12 mg/dL [facility] No Panel Informationon 03-22 Pura Lara DO 03/22/2024 4:43 PM Pessary Date/Time: 03/22/2024 2:56 PM Performed by: Pura Lara DO Authorized by: Pura Lara DO Consent: Procedural risks discussed: yes Relevant documents present and verified: yes Patient agrees, verbalizes understanding, and wants to proceed: yes Consent given by: Patient Indication: Indication for pessary: cystocele and incontinence Procedure: Pessary type: Incontinence dish w/ support Pessary size: 3 Outcomes: Patient tolerance of procedure: Tolerated well, no immediate complications Post-procedure education provided: yes Pessary maintenance plan: To return to the office in 2 weeks Reviewed by: provider Comments: Procedure comments: Incontinence dish #3 inserted. Pessary remained in place with valsalva [facility] CNPYolanda 03-15-2024 CNPN Telephone (ALISE) JEANNETTE HURTADO Kennedy ([id number]) 1965 F Date Time Provider Department 03/15/24 KENDAL SPARKS During your visit today, we recorded the following information about you: Kendal Sparks, FIORDALIZA 03/15/2024 11:08 AM Signed ----- Message from Maite Merritt PA-C sent at 03/15/2024 11:00 AM EDT ----- Please call with low iron levels which may be causing her fatigue. Offer Venofer 200 mg IVP x 5 doses. Kendal Sparks, FIORDALIZA 03/15/2024 11:09 AM Signed Pt aware and agreeable to plan of care/IV venofer x 5 doses. Pt denies questions, needs or concerns at this time; will await scheduling for appts. Lashanda/Kristen: please call to schedule FIORDALIZA Pope Brittany 03/16/2024 10:09 AM Signed I'm not seeing Venofer orders placed or to begin an insurance auth. Can you verify orders have been placed? Maite Tijerina PA-C 03/16/2024 10:14 AM Signed Orders are in [place] Kay Brittany 03/16/2024 11:34 AM Signed Patient has been scheduled for Venofer x5 doses. Also sent patient a [employer]over[employer] message. She is all set, Thanks! [place] Allergies As of Date: 03/15/2024 Noted Allergy Reaction COMPAZINE (PROCHLORPERAZINE EDISY*01/13/2005 LATEX 01/21/2023 16 - Unknown Date Reviewed: 03/14/2024 Reviewed by: Maite Merritt PA-C - Fully Assessed Reason for Visit: Results [95] IV Venofer x 5 doses [Other] Prescriptions as of 03/16/2024 - PLAVIX 75 mg tablet Take 75 mg by mouth once daily. - folic acid 1 mg tablet Take [...] the tongue at bedtime as needed. - B-complex with vitamin C (VITAMIN B [...] Sarmiento MA Problem List As Of Date 03/15/2024 Noted Resolved HIDRADENITIS [L73.2] 01/13/2005 Iron deficiency anemia secondary to inadequate *02/07/2023 Encounter Status:Closed by KENDAL SPARKS on 03/16/24 Normal [facility] CBC W Auto Differential pane l (Bld)on 03-14-2024 Basophils (Bld) [#/Vol] 0.05 10*3/uL Normal <0.11 [facility] Comment on above: Order Comment: Speci men Type: BLOOD SPECIMENOrdering Facility: [facility] Address: [address] [place] [address] Performed By: #### 1 4196-0, 29492-1 ####[facility] LABCLIA [id number] [place] [address] Basophils/100 WBC (Bld) 0.5 % Normal [facility] Comment on above: Order Comment: Speci men Type: BLOOD SPECIMENOrdering Facility: [facility] Address: [address] [place] [address] Performed By: #### 1 4196-0, 37658-5 ####[facility] LABCLIA [id number] [place] [address] Differential cell count method Nom (Bld) Auto Normal [facility] Comment on above: Order Comment: Speci men Type: BLOOD SPECIMENOrdering Facility: [facility] Address: [address] [place] [address] Performed By: #### 1 4196-0, 55954-7 ####[facility] LABCLIA [id number] [place] [address] Eosinophils (Bld) [#/Vol] 0.26 10*3/uL Normal <0.46 [facility] Comment on above: Order Comment: Speci men Type: BLOOD SPECIMENOrdering Facility: [facility] Address: [address] [place] [address] Performed By: #### 1 4196-0, 40950-5 ####[facility] LABIA [id number] [place] [address] Eosinophils/100 WBC (Bld) 2.5 % Normal [facility] Comment on above: Order Comment: Speci men Type: BLOOD SPECIMENOrdering Facility: [facility] Address: [address] [place] [address] Performed By: #### 1 4196-0, ####[facility] LABCLIA [id number] [place] [address] Erythrocyte distribution width (RBC) [Ratio] 13.2 % Normal 11.5-15.0 [facility] Comment on above: Order Comment: Speci men Type: BLOOD SPECIMENOrdering Facility: [facility] Address: [address] [place] [address] Performed By: #### 1 4196-0, 71116-6 ####[facility] LABCLIA [id number] [place] [address] Hematocrit (Bld) [Volume fraction] 37.7 % Normal 36.0-46.0 [facility] Comment on above: Order Comment: Speci men Type: BLOOD SPECIMENOrdering Facility: [facility] Address: [address] [place] [address] Performed By: #### 1 4196-0, 49787-8 ####[facility] LABCLIA [id number] [place] [address] Hemoglobin (Bld) [Mass/Vol] 12.4 g/dL Normal 11.5-15.5 [facility] Comment on above: Order Comment: Speci men Type: BLOOD SPECIMENOrdering Facility: [facility] Address: [address] [place] [address] Performed By: #### 1 4196-0, 11158-3 ####[facility] LABCLIA [id number] [place] [address] Immature granulocytes (Bld) [#/Vol] 0.05 10*3/uL Normal <0.10 [facility] Comment on above: Order Comment: Speci men Type: BLOOD SPECIMENOrdering Facility: [facility] Address: [address] [place] [address] Performed By: #### 1 4196-0, 74491-1 ####[facility] LABCLIA [id number] [place] [address] Immature granulocytes/100 WBC (Bld) 0.5 % Normal [facility] Comment on above: Order Comment: Speci men Type: BLOOD SPECIMENOrdering Facility: [facility] Address: [address] [place] [address] Performed By: #### 1 4196-0, 56628-2 ####[facility] LABCLIA [id number] [place] [address] Lymphocytes (Bld) [#/Vol] 2.59 10*3/uL Normal 1.00-4.00 [facility] Comment on above: Order Comment: Speci men Type: BLOOD SPECIMENOrdering Facility: [facility] Address: [address] [place] [address] Performed By: #### 1 4196-0, 96912-5 ####[facility] LABCLIA [id number] [place] [address] Lymphocytes/100 WBC (Bld) 25.1 % Normal [facility] Comment on above: Order Comment: Speci men Type: BLOOD SPECIMENOrdering Facility: [facility] Address: [address] [place] [address] Performed By: #### 1 4196-0, 46993-0 ####[facility] LABCLIA [id number] [place] [address] MCH (RBC) [Entitic mass] 30.5 pg Normal 26.0-34.0 [facility] Comment on above: Order Comment: Speci men Type: BLOOD SPECIMENOrdering Facility: [facility] Address: [address] [place] [address] Performed By: #### 1 4196-0, 24079-6 ####[facility] LABIA [id number] [place] [address] MCHC (RBC) [Mass/Vol] 32.9 g/dL Normal 30.5-36.0 [facility] Comment on above: Order Comment: Speci men Type: BLOOD SPECIMENOrdering Facility: [facility] Address: [address] [place] [address] Performed By: #### 1 4196-0, 05980-5 ####[facility] LABIA [id number] [place] [address] MCV (RBC) [Entitic vol] 92.9 fL Normal 80.0-100.0 [facility] Comment on above: Order Comment: Speci men Type: BLOOD SPECIMENOrdering Facility: [facility] Address: [address] [place] [address] Performed By: #### 1 4196-0, 86727-7 ####[facility] LABCLIA [id number] [place] [address] Monocytes (Bld) [#/Vol] 0.68 10*3/uL Normal <0.87 [facility] Comment on above: Order Comment: Speci men Type: BLOOD SPECIMENOrdering Facility: [facility] Address: [address] [place] [address] Performed By: #### 1 4196-0, 54337-8 ####[facility] LABCLIA [id number] [place] [address] Monocytes/100 WBC (Bld) 6.6 % Normal [facility] Comment on above: Order Comment: Speci men Type: BLOOD SPECIMENOrdering Facility: [facility] Address: [address] [place] [address] Performed By: #### 1 4196-0, 95752-8 ####[facility] LABCLIA [id number] [place] [address] Neutrophils (Bld) [#/Vol] 6.67 10*3/uL Normal 1.45-7.50 [facility] Comment on above: Order Comment: Speci men Type: BLOOD SPECIMENOrdering Facility: [facility] Address: [address] [place] [address] Performed By: #### 1 4196-0, 19114-2 ####[facility] LABCLIA [id number] [place] [address] Neutrophils/100 WBC (Bld) 64.8 % Normal [facility] Comment on above: Order Comment: Speci men Type: BLOOD SPECIMENOrdering Facility: [facility] Address: [address] [place] [address] Performed By: #### 1 4196-0, 51997-6 ####[facility] LABCLIA [id number] [place] [address] Nucleated RBC (Bld) [#/Vol] 10*3/uL Normal <0.01 [facility] Comment on above: Order Comment: Speci men Type: BLOOD SPECIMENOrdering Facility: [facility] Address: [address] [place] [address] Performed By: #### 1 4196-0, 06621-8 ####[facility] LABCLIA [id number] [place] [address] Nucleated RBC/100 WBC (Bld) [Ratio] 0.0 /100 WBC Normal [facility] Comment on above: Order Comment: Speci men Type: BLOOD SPECIMENOrdering Facility: [facility] Address: [address] [place] [address] Performed By: #### 1 4196-0, 67966-8 ####[facility] LABIA [id number] [place] [address] Platelet mean volume (Bld) [Entitic vol] 9.6 fL Normal 9.0-12.7 [facility] Comment on above: Order Comment: Speci men Type: BLOOD SPECIMENOrdering Facility: [facility] Address: [address] [place] [address] Performed By: #### 1 4196-0, 73853-5 ####[facility] LABIA [id number] [place] [address] Platelets (Bld) [#/Vol] 247 10*3/uL Normal 150-400 [facility] Comment on above: Order Comment: Speci men Type: BLOOD SPECIMENOrdering Facility: [facility] Address: [address] [place] [address] Performed By: #### 1 4196-0, 37751-2 ####[facility] LABIA [id number] [place] [address] RBC (Bld) [#/Vol] 4.06 10*6/uL Normal 3.90-5.20 [facility] Comment on above: Order Comment: Speci men Type: BLOOD SPECIMENOrdering Facility: [facility] Address: [address] [place] [address] Performed By: #### 1 4196-0, 92456-2 ####[facility] LABCLIA [id number] [place] [address] WBC (Bld) [#/Vol] 10.30 10*3/uL Normal 3.70-11.00 [facility] Comment on above: Order Comment: Speci men Type: BLOOD SPECIMENOrdering Facility: [facility] Address: [address] [place] [address] Performed By: #### 1 4196-0, 32013-6 ####[facility] LABCLIA [id number] [place] [address] CNNURSEon 03-14-2024 CNNURSE Nurse Visit (HEMASA) JEANNETTE HURTADO ([id number]) 1965 F Date Time Provider Department 03/14/24 3:00 PM MERVIN NURSE EDMUND YOO HEMASA During your visit today, we recorded the following information about you: Mariela Sarmiento MA 03/14/2024 3:18 PM Signed Patient Identification confirmed: yes. Injection given and documented on JUL per provider order. 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 - folic acid 1 mg tablet Take [...] Sarmiento MA Problem List As Of Date 03/14/2024 Noted Resolved HIDRADENITIS [L73.2] 01/13/2005 Iron deficiency anemia secondary to inadequate *02/07/2023 Visit Notes: >> Mariela Sarmiento MA TueMar 14, 2024 3:17 PM Status: Signed Patient Identification confirmed: yes. Injection given and documented on JUL per provider order. Mariela Sarmiento MA Prescriptions ordered this encounter Disp Refills Start End CYANOCOBALAMIN (VIT B-12) 1,000 MCG/* 03/14/2024 03/14/2024 Route: INTRAMUSCULA Encounter Status:Closed by MARIELA SARMIENTO on 03/14/24 [facility] CNOVSPon 03-14-2024 CNOVSP Visit (SP) Office (H EMASA) HURTADOJEANNETTE ([id number]) 1965 F Date Time Provider Department 03/14/24 2:30 PM MAITE MERRITT During your visit today, we recorded the following information about you: Temperature Pulse Respiration Blood pressure 97.5 degrees 68/minute 16/minute 141/74 Weight Height 92.2 kg 1.676 m Maite Merritt PA-C 03/14/2024 3:35 PM Signed NAME: Jeannette Hurtado CLINIC NO.: [id number] DATE OF SERVICE: March 14, 2024 (Sari) Some elements in this clinic note that are critical to medical decision making have been carefully reviewed and included from a prior clinic note dated: December 21, 2023 (José) Referring Provider: Dr. Klaudia Gomez Additional Clinicians involved in Jeannettemarc Hurtado's care: DIAGNOSIS: Anemia, fatigue ASSESSMENT: 58 year old woman with anemia and associated fatigue. She has obstructive sleep apnea but is compliant with CPAP. We advised her to have a cardiac workup done because the degree of anemia did not match the degree of fatigue. She ended up failing a stress test and now has two coronary stents. Patient will receive B12 today and continue receiving it every 4 weeks. Due to patient's increasing fatigue, a TSH was drawn. She has not taken levothyroxine in over 7 years, as her new PCP told her she did not need it anymore. Pending iron studies and TSH, we will call patient if she needs iron infusion or refer to PCP for thyroid levels. She will continue her folic acid supplement and return to office in 12 weeks with labs. - HPI: CASE HISTORY: Reverse Chronological Order 01/05/2023 - CBC 9.2 > 11.2 / 35.6 < 277 11/12/2022 - Colonoscopy is negative. Recommended colonoscopy 10 years. Updated Visit, March 14, 2024: Patient is here today reporting extreme fatigue. Still using CPAP, wakes up around 3-4 times a night. She says the past two months her fatigue has been worse, gets home from work and has no energy. She has been craving ice recently. Patient states she was on levothyroxine for years, got a new PCP who took her off of it and has not been taking it for 7 years. Patient has had frequent headaches due to stress at work, gotten worse the past two months. She is still tolerating folic acid and B12. Updated Visit, December 21, 2023: Doing better [...] [facility] Updated Visit, July 11, 2023: Jeannette Hurtado [...] regular visit to discuss IV iron? Mechelle Gomez, RN Jeannette Hurtado returns for scheduled follow-up. [...] review of organ systems. - ECOG PERFORMANCE STA (more content not included)... Normal [facility] Comprehensive metabolic 2000 panelon 03-14-2024 Albumin [Mass/Vol] 4.7 g/dL Normal 3.9-4.9 [facility] Comment on above: Order Comment: Speci men Type: BLOOD SPECIMENOrdering Facility: [facility] Address: [address] [place] [address] Performed By: #### 2 532-0, ####[facility] LABCLIA [id number] [place] [address] ALP [Catalytic activity/Vol] 117 U/L Normal 34-123 [facility] Comment on above: Order Comment: Speci men Type: BLOOD SPECIMENOrdering Facility: [facility] Address: [address] [place] [address] Performed By: #### 2 532-0, ####[facility] LABCLIA [id number] [place] [address] ALT [Catalytic activity/Vol] 23 U/L Normal 7-38 [facility] Comment on above: Order Comment: Speci men Type: BLOOD SPECIMENOrdering Facility: [facility] Address: [address] [place] [address] Performed By: #### 2 532-0, ####[facility] LABCLIA [id number] [place] [address] Anion gap [Moles/Vol] 12 mmol/L Normal 8-15 [facility] Comment on above: Order Comment: Speci men Type: BLOOD SPECIMENOrdering Facility: [facility] Address: [address] [place] [address] Performed By: #### 2 532-0, ####[facility] LABCLIA [id number] [place] [address] AST [Catalytic activity/Vol] 31 U/L Normal 13-35 [facility] Comment on above: Order Comment: Speci men Type: BLOOD SPECIMENOrdering Facility: [facility] Address: [address] [place] [address] Performed By: #### 2 532-0, ####[facility] LABCLIA [id number] [place] [address] Bilirubin [Mass/Vol] 0.3 mg/dL Normal 0.2-1.3 [facility] Comment on above: Order Comment: Speci men Type: BLOOD SPECIMENOrdering Facility: [facility] Address: [address] [place] [address] Performed By: #### 2 532-0, ####[facility] LABCLIA [id number] [place] [address] Calcium [Mass/Vol] 9.7 mg/dL Normal 8.5-10.2 [facility] Comment on above: Order Comment: Speci men Type: BLOOD SPECIMENOrdering Facility: [facility] Address: [address] [place] [address] Performed By: #### 2 532-0, ####[facility] LABCLIA [id number] [place] [address] Chloride [Moles/Vol] 100 mmol/L Normal 98-107 [facility] Comment on above: Order Comment: Speci men Type: BLOOD SPECIMENOrdering Facility: [facility] Address: [address] [place] [address] Performed By: #### 2 532-0, ####[facility] LABCLIA [id number] [place] [address] CO2 [Moles/Vol] 26 mmol/L Normal 22-30 [facility] Comment on above: Order Comment: Speci men Type: BLOOD SPECIMENOrdering Facility: [facility] Address: [address] [place] [address] Performed By: #### 2 532-0, ####[facility] LABCLIA [id number] [place] [address] Creatinine [Mass/Vol] 0.89 mg/dL Normal 0.58-0.96 [facility] Comment on above: Order Comment: Speci men Type: BLOOD SPECIMENOrdering Facility: [facility] Address: [address] [place], [place] [address] Performed By: #### 2 532-0, 98623-9 ####[facility] LABCLIA [id number] [place] [address] Creatinine and Glomerular filtration rate.predicted panel (S/P/Bld) 74 mL/min/1.73m??? Normal >=60 [facility] Comment on above: Order Comment: Speci men Type: BLOOD SPECIMENOrdering Facility: [facility] Address: [address] [place] [address] Result Comment: Michaela mated Glomerular Filtration Rate [...] reflect actual GFR. Performed By: #### 2 532-0, 25630-7 ####[facility] LABCLIA [id number] [place] [address] Glucose [Mass/Vol] 107 mg/dL High 74-99 [facility] Comment on above: Order Comment: Speci men Type: BLOOD SPECIMENOrdering Facility: [facility] Address: [address] [place] [address] Result Comment: The [place] Diabetes Association (ADA) provides guidance for cutoff [...] Standards of Medical Care in Diabetes 2016, [place] [employer]. Diabetes Care. 2016.39(Suppl 1). Performed By: #### 2 532-0, 41943-6 ####[facility] LABCLIA [id number] [place] [address] Potassium [Moles/Vol] 4.4 mmol/L Normal 3.7-5.1 [facility] Comment on above: Order Comment: Speci men Type: BLOOD SPECIMENOrdering Facility: [facility] Address: [address] [place] [address] Performed By: #### 2 532-0, ####[facility] LABCLIA [id number] [place] [address] Protein [Mass/Vol] 7.6 g/dL Normal 6.3-8.0 [facility] Comment on above: Order Comment: Speci men Type: BLOOD SPECIMENOrdering Facility: [facility] Address: [address] [place] [address] Performed By: #### 2 532-0, ####[facility] LABIA [id number] [place] [address] Sodium [Moles/Vol] 138 mmol/L Normal 136-144 [facility] Comment on above: Order Comment: Speci men Type: BLOOD SPECIMENOrdering Facility: [facility] Address: [address] [place] [address] Performed By: #### 2 532-0, ####[facility] LABCLIA [id number] [place] [address] Urea nitrogen [Mass/Vol] 18 mg/dL Normal 7-21 [facility] Comment on above: Order Comment: Speci men Type: BLOOD SPECIMENOrdering Facility: [facility] Address: [address] [place] [address] Performed By: #### 2 532-0, ####[facility] LABIA [id number] [place] [address] [facility] Ferritin [Mass/Vol] 89.5 ng/mL Normal 14.7-205.1 [facility] Comment on above: Order Comment: Speci men Type: BLOOD SPECIMENOrdering Facility: [facility] Address: [address] [place] [address] Performed By: #### 5 0190-8, 6-4, 2283-8, 9 ####[facility] LABCLIA [id number] [place] [address] [place] Folate SerPl-ncon 03-14-20 Folate [Mass/Vol] ng/mL Normal >4.7 [facility] Comment on above: Order Comment: Speci men Type: BLOOD SPECIMENOrdering Facility: [facility] Address: [address] [place] [address] Result Comment: A re sult of > 20 ng/mL is not necessarily indicative of a pathologic or treatable condition: it reflects a limitation of the test methodology. Assay reference range: 4.8 to 24.2 ng/mL. Suitable for detection of folate deficiency. Reference: Folate III (Folate III) [package insert V 1.0 Pakistani]. [facility], [place], [place]: March 2015. Performed By: #### 5 0190-8, 6-4, 2283-8, 2132-01 ####[facility] LABCLIA [id number] [place] [id number] [place] Iron and Iron binding capaci panelon 03-14-2024 Iron [Mass/Vol] 56 ug/dL Normal 41-186 [facility] Comment on above: Order Comment: Speci men Type: BLOOD SPECIMENOrdering Facility: [facility] Address: [address] [place] [address] Performed By: #### 5 0190-8, 6-4, 2283-8, 2132-01 ####[facility] LABCLIA [id number] [place] [address] [place] Iron binding capacity [Mass/Vol] 395 ug/dL High 232-386 [facility] Comment on above: Order Comment: Speci men Type: BLOOD SPECIMENOrdering Facility: [facility] Address: [address] [place] [address] Performed By: #### 5 0190-8, 2276-4, 2284-8, 2131-9 ####[facility] LABIA [id number] [place] [address] [place] Iron/TIBC [Molar ratio] 14.2 % Low 15.0-57.0 [facility] Comment on above: Order Comment: Speci men Type: BLOOD SPECIMENOrdering Facility: [facility] Address: [address] [place] [address] Performed By: #### 5 0190-8, 2276-4, 2284-8, 2131-9 ####[facility] LABIA [id number] [place] [address] [place] LDH SerPl-cCncon 03-14-2024 LDH [Catalytic activity/Vol] 189 U/L Normal 135-214 [facility] Comment on above: Order Comment: Speci men Type: BLOOD SPECIMENOrdering Facility: [facility] Address: [address] [place] [address] Performed By: #### 2 532-0, 15011-3 ####[facility] LABIA [id number] [place] [address] Retics #on 03-14-2024 Reticulocytes (Bld) [#/Vol] 0.98861 10*3/uL Normal 0.018-0.10 0 [facility] Comment on above: Order Comment: Speci men Type: BLOOD SPECIMENOrdering Facility: [facility] Address: [address] [place] [address] Performed By: #### 1 4196-0, 44256-8 ####[facility] LABIA [id number] [place] [address] Reticulocytes (Bld) [#/Vol]o n 03-14-2024 Reticulocytes/100 RBC (Bld) 1.6 % Normal 0.4-2.0 [facility] Comment on above: Order Comment: Speci men Type: BLOOD SPECIMENOrdering Facility: [facility] Address: [address] [place] [address] Performed By: #### 1 4196-0, 79438-1 ####[facility] LABCLIA [id number] [place] [address] TSH SerPl-aCncon 03-14-2024 TSH Qn 3.130 m[IU]/L Normal 0.270-4.20 0 [facility] Comment on above: Order Comment: Speci men Type: BLOOD SPECIMENOrdering Facility: [facility] Address: [address] [place] [address] Performed By: #### 3 016-3 ####[facility] LABCLIA [id number] [place] [address] [place] Vit B12 SerPl-mCncon 024 Cobalamin (Vitamin B12) [Mass/Vol] 634 pg/mL Normal 232-1245 [facility] Comment on above: Order Comment: Speci men Type: BLOOD SPECIMENOrdering Facility: [facility] Address: [address] [place] [address] Performed By: #### 5 0190-8, 2276-4, 2284-8, 2132-9 ####[facility] LABCLIA [id number] [place] [address] [place] XR hand LT min 3V*on 024 XR hand LT min 3V* [facility] [address] [place] [address] XRay Report Signed Patient: Jeannette Hurtado MR#: [id number] : 1965 Acct:[id number] Age/Sex: 58 / F ADM Date: 02/20/24 Loc: XD Room: Type: [facility] Attending Dr: Klaudia Gomez MD Copies to: [...] Hayden Valdez M.D.02/20/2024 10:14 PM Dictation Location: [place] [address] Transcribed By: [facility] 02/20/242213 Dictated By: Hayden Valdez II, MD 02/20/242211 Signed By: 02/20/242213 Normal [facility] XR wrist LT min 3V*on 2023 XR wrist LT min 3V* [facility] [place] [address] XRay Report Signed Patient: Jeannette Hurtado MR#: [id number] : 1965 Acct:[id number] Age/Sex: 58 / F ADM Date: 02/20/24 Loc: XD Room: Type: [facility] Attending Dr: Klaudia Gomez MD Copies to: [...] Hayden Valdez M.D.02/20/2024 10:16 PM Dictation Location: [facility]--13 Transcribed By: [facility] 02/20/242215 Dictated By: Hayden Valdez II, MD 02/20/242213 Signed By: 02/20/242215 Normal [facility] CNNURSEon 02-15-2024 CNNURSE Nurse Visit (HEMASA) JEANNETTE HURTADO ([id number]) 1965 F Date Time Provider Department 02/15/24 2:30 PM [facility] NURSE EDMUND CARRERO During your visit today, we recorded the following information about you: Temperature Pulse Respiration Blood pressure 97.2 degrees 75/minute 16/minute 137/83 Mariela Sarmiento MA 02/15/2024 2:49 PM Signed Patient Identification confirmed: yes. Injection given and documented on JUL per provider order. Mariela Sarmiento MA Referring Provider: JOSE ROSE [[id number]] Allergies As of Date: 02/15/2024 Noted Allergy [...] by MARIELA SARMIENTO on 02/15/24 [facility] JEANNETTE HURTADO ([id number]) 1965 F Date Time Provider Department 01/18/24 2:30 PM [facility] NURSE EDMUND CARRERO During your visit today, we recorded the following information about you: Temperature Pulse Respiration Blood pressure 97.8 degrees 77/minute 16/minute 134/76 Katina Howe MA 01/18/2024 3:22 PM Signed Patient Identification confirmed: yes. Injection given and documented on JUL per provider order. August MERVIN Howe Referring Provider: JOSE ROSE [[id number]] Allergies As of Date: 01/18/2024 Noted Allergy [...] Status:Closed by KATINA HOWE on 01/18/24 Normal [facility] Absolute reticulocyte counto n 12-21-2023 Reticulocytes (Bld) [#/Vol] 0.92883 10*3/uL 0.018-0.10 0 [facility] Basophils Auto (Bld) [#/Vol] on 12-21-2023 Basophils (Bld) [#/Vol] 0.04 10*3/uL <0.11 [facility] Basophils/100 WBC Auto (Bld) on 12-21-2023 Basophils/100 WBC (Bld) 0.5 % [facility] Blood manual differential co mment interpretation narrativeon 12-21-2023 Manual differential comment Alec (Bld) [Interp] Auto [facility] CBC W Auto Differential pane l (Bld)on 12-21-2023 Basophils (Bld) [#/Vol] 0.04 10*3/uL Normal <0.11 [facility] Comment on above: Order Comment: Speci men Type: BLOOD SPECIMENOrdering Facility: [facility] Address: [address] [place] [address] Performed By: #### 5 7021-8, 65745-5 ####[facility] LABCLIA [id number] [place] [address] Basophils/100 WBC (Bld) 0.5 % Normal [facility] Comment on above: Order Comment: Speci men Type: BLOOD SPECIMENOrdering Facility: [facility] Address: [facility] [place] [address] Performed By: #### 5 7021-8, 72207-4 ####[facility] LABCLIA [id number] [place] [address] Differential cell count method Nom (Bld) Auto Normal [facility] Comment on above: Order Comment: Speci men Type: BLOOD SPECIMENOrdering Facility: [facility] Address: [address] [place] [address] Performed By: #### 5 7021-8, 52203-4 ####[facility] LABCLIA [id number] [place] [address] Eosinophils (Bld) [#/Vol] 0.18 10*3/uL Normal <0.46 [facility] Comment on above: Order Comment: Speci men Type: BLOOD SPECIMENOrdering Facility: [facility] Address: [address] [place] [address] Performed By: #### 5 7021-8, 25033-1 ####[facility] LABCLIA [id number] [place] [address] Eosinophils/100 WBC (Bld) 2.2 % Normal [facility] Comment on above: Order Comment: Speci men Type: BLOOD SPECIMENOrdering Facility: [facility] Address: [address] [place] [address] Performed By: #### 5 7021-8, 22453-0 ####[facility] LABCLIA [id number] [place] [address] Erythrocyte distribution width (RBC) [Ratio] 12.5 % Normal 11.5-15.0 [facility] Comment on above: Order Comment: Speci men Type: BLOOD SPECIMENOrdering Facility: [facility] Address: [address] [place] [address] Performed By: #### 5 7021-8, 35873-9 ####[facility] LABCLIA [id number] [place] [address] Hematocrit (Bld) [Volume fraction] 36.3 % Normal 36.0-46.0 [facility] Comment on above: Order Comment: Speci men Type: BLOOD SPECIMENOrdering Facility: [facility] Address: [address] [place] [address] Performed By: #### 5 7021-8, 76216-7 ####[facility] LABCLIA [id number] [place] [address] Hemoglobin (Bld) [Mass/Vol] 11.8 g/dL Normal 11.5-15.5 [facility] Comment on above: Order Comment: Speci men Type: BLOOD SPECIMENOrdering Facility: [facility] Address: [address] [place] [address] Performed By: #### 5 7021-8, 44655-2 ####[facility] LABCLIA [id number] [place] [address] Immature granulocytes (Bld) [#/Vol] 0.03 10*3/uL Normal <0.10 [facility] Comment on above: Order Comment: Speci men Type: BLOOD SPECIMENOrdering Facility: [facility] Address: [address] [place] [address] Performed By: #### 5 7021-8, 36202-6 ####[facility] LABCLIA [id number] [place] [address] Immature granulocytes/100 WBC (Bld) 0.4 % Normal [facility] Comment on above: Order Comment: Speci men Type: BLOOD SPECIMENOrdering Facility: [facility] Address: [address] [place] [address] Performed By: #### 5 7021-8, 73211-3 ####[facility] LABCLIA [id number] [place] [address] Lymphocytes (Bld) [#/Vol] 2.48 10*3/uL Normal 1.00-4.00 [facility] Comment on above: Order Comment: Speci men Type: BLOOD SPECIMENOrdering Facility: [facility] Address: [address] [place] [address] Performed By: #### 5 7021-8, 93381-9 ####[facility] LABCLIA [id number] [place] [address] Lymphocytes/100 WBC (Bld) 30.5 % Normal [facility] Comment on above: Order Comment: Speci men Type: BLOOD SPECIMENOrdering Facility: [facility] Address: [address] [place] [address] Performed By: #### 5 7021-8, 36229-0 ####[facility] LABCLIA [id number] [place] [address] MCH (RBC) [Entitic mass] 30.8 pg Normal 26.0-34.0 [facility] Comment on above: Order Comment: Speci men Type: BLOOD SPECIMENOrdering Facility: [facility] Address: [address] [place] [address] Performed By: #### 5 7021-8, 06988-6 ####[facility] LABCLIA [id number] [place] [address] MCHC (RBC) [Mass/Vol] 32.5 g/dL Normal 30.5-36.0 [facility] Comment on above: Order Comment: Speci men Type: BLOOD SPECIMENOrdering Facility: [facility] Address: [address] [place] [address] Performed By: #### 5 7021-8, 37795-4 ####[facility] LABIA [id number] [place] [address] MCV (RBC) [Entitic vol] 94.8 fL Normal 80.0-100.0 [facility] Comment on above: Order Comment: Speci men Type: BLOOD SPECIMENOrdering Facility: [facility] Address: [address] [place] [address] Performed By: #### 5 7021-8, 78153-2 ####[facility] LABCLIA [id number] [place] [address] Monocytes (Bld) [#/Vol] 0.69 10*3/uL Normal <0.87 [facility] Comment on above: Order Comment: Speci men Type: BLOOD SPECIMENOrdering Facility: [facility] Address: [address] [place] [address] Performed By: #### 5 7021-8, 97787-3 ####[facility] LABCLIA [id number] [place] [address] Monocytes/100 WBC (Bld) 8.5 % Normal [facility] Comment on above: Order Comment: Speci men Type: BLOOD SPECIMENOrdering Facility: [facility] Address: [address] [place] [address] Performed By: #### 5 7021-8, 22274-0 ####[facility] LABCLIA [id number] [place] [address] Neutrophils (Bld) [#/Vol] 4.71 10*3/uL Normal 1.45-7.50 [facility] Comment on above: Order Comment: Speci men Type: BLOOD SPECIMENOrdering Facility: [facility] Address: [address] [place] [address] Performed By: #### 5 7021-8, 19220-4 ####[facility] LABCLIA [id number] [place] [address] Neutrophils/100 WBC (Bld) 57.9 % Normal [facility] Comment on above: Order Comment: Speci men Type: BLOOD SPECIMENOrdering Facility: [facility] Address: [address] [place] [address] Performed By: #### 5 7021-8, 83632-0 ####[facility] LABCLIA [id number] [place] [address] Nucleated RBC (Bld) [#/Vol] 10*3/uL Normal <0.01 [facility] Comment on above: Order Comment: Speci men Type: BLOOD SPECIMENOrdering Facility: [facility] Address: [address] [place] [address] Performed By: #### 5 7021-8, 96103-1 ####[facility] LABIA [id number] [place] [address] Nucleated RBC/100 WBC (Bld) [Ratio] 0.0 /100 WBC Normal [facility] Comment on above: Order Comment: Speci men Type: BLOOD SPECIMENOrdering Facility: [facility] Address: [address] [place] [address] Performed By: #### 5 7021-8, 54441-5 ####[facility] LABIA [id number] [place] [address] Platelet mean volume (Bld) [Entitic vol] 9.8 fL Normal 9.0-12.7 [facility] Comment on above: Order Comment: Speci men Type: BLOOD SPECIMENOrdering Facility: [facility] Address: [address] [place] [address] Performed By: #### 5 7021-8, 45601-0 ####[facility] LABIA [id number] [place] [address] Platelets (Bld) [#/Vol] 200 10*3/uL Normal 150-400 [facility] Comment on above: Order Comment: Speci men Type: BLOOD SPECIMENOrdering Facility: [facility] Address: [address] [place] [address] Performed By: #### 5 7021-8, 28052-2 ####[facility] LABCLIA [id number] [place] [address] RBC (Bld) [#/Vol] 3.83 10*6/uL Low 3.90-5.20 [facility] Comment on above: Order Comment: Speci men Type: BLOOD SPECIMENOrdering Facility: [facility] Address: [address] [place] [address] Performed By: #### 5 7021-8, 91840-6 ####[facility] LABCLIA [id number] [place] [address] WBC (Bld) [#/Vol] 8.13 10*3/uL Normal 3.70-11.00 [facility] Comment on above: Order Comment: Speci men Type: BLOOD SPECIMENOrdering Facility: [facility] Address: [address] [place] [address] Performed By: #### 5 7021-8, 64794-0 ####[facility] LABCLIA [id number] [place] [address] CNNURSEon 12-21-2023 [facility] Nurse Visit (HEMASA) JEANNETTE HURTADO ([id number]) 1965 F Date Time Provider Department 12/21/23 3:00 PM [facility] NURSE EDMUND YOO HEMLEXI During your visit today, we recorded the following information about you: Dangelo Umanzor MA 12/21/2023 3:06 PM Signed Patient Identification confirmed: yes. Injection given and documented on JUL per provider order. Dangelo Umanzor MA Referring Provider: JOSE ROSE [[id number]] Allergies As of Date: 12/21/2023 Noted Allergy [...] Encounter Status:Closed by DANGELO UMANZOR on 12/21/23 [facility] CNOVSPon 12-21-2023 CNOVSP Visit (SP) Office (Nguyen MILLER) JEANNETTE HURTADO ([id number]) 1965 F Date Time Provider Department 12/21/23 2:30 PM JOSE ROSE During your visit today, we recorded the following information about you: Temperature Pulse Respiration Blood pressure 97.2 degrees 58/minute 16/minute 171/79 Weight Height 89.8 kg 1.676 m Jose Rose MD 12/24/2023 12:21 PM Signed NAME: Jeannette Hurtado CLINIC NO.: [id number] DATE OF SERVICE: December 21, 2023 (José) Some elements in this clinic note that are critical to medical decision making have been carefully reviewed and included from a prior clinic note dated: October 03, 2023 (José) Referring Provider: Dr. Klaudia Gomez Additional Clinicians involved in Jeannette Wyatte's care: DIAGNOSIS: Anemia, fatigue ASSESSMENT: 58 year [...] replacement / balancing that is offered by NPTV. Updated Visit, July 11, 2023: Jeannette A Hurtado returns for scheduled follow-up. Since her [...] or petechia (more content not included)... Normal [facility] Comprehensive metabolic 2000 panelon 12-21-2023 Albumin [Mass/Vol] 4.3 g/dL Normal 3.9-4.9 [facility] Comment on above: Order Comment: Speci men Type: BLOOD SPECIMENOrdering Facility: [facility] Address: [address] [place] [address] Performed By: #### 2 4323-8 ####[facility] LABCLIA [id number] [place] [address] [place] ALP [Catalytic activity/Vol] 105 U/L Normal 34-123 [facility] Comment on above: Order Comment: Speci men Type: BLOOD SPECIMENOrdering Facility: [facility] Address: [address] [place] [address] Performed By: #### 2 4323-8 ####[facility] LABCLIA [id number] [place] [address] [place] ALT [Catalytic activity/Vol] 30 U/L Normal 7-38 [facility] Comment on above: Order Comment: Speci men Type: BLOOD SPECIMENOrdering Facility: [facility] Address: [address] [place] [address] Performed By: #### 2 4323-8 ####[facility] LABCLIA [id number] [place] [address] [place] Anion gap [Moles/Vol] 14 mmol/L Normal 8-15 [facility] Comment on above: Order Comment: Speci men Type: BLOOD SPECIMENOrdering Facility: [facility] Address: [address] [place] [address] Performed By: #### 2 4323-8 ####[facility] LABCLIA [id number] [place] [address] [place] AST [Catalytic activity/Vol] 33 U/L Normal 13-35 [facility] Comment on above: Order Comment: Speci men Type: BLOOD SPECIMENOrdering Facility: [facility] Address: [address] [place] [address] Performed By: #### 2 4323-8 ####[facility] LABCLIA [id number] [place] [address] [place] Bilirubin [Mass/Vol] 0.3 mg/dL Normal 0.2-1.3 [facility] Comment on above: Order Comment: Speci men Type: BLOOD SPECIMENOrdering Facility: [facility] Address: [address] [place] [id number] Performed By: #### 2 4323-8 ####[facility] LABCLIA [id number] [address] [address] [place] Calcium [Mass/Vol] 9.5 mg/dL Normal 8.5-10.2 [facility] Comment on above: Order Comment: Speci men Type: BLOOD SPECIMENOrdering Facility: [facility] Address: [address] [place], [place] [address] Performed By: #### 2 4323-8 ####[facility] LABCLIA [id number] [place] [address] [place] Chloride [Moles/Vol] 100 mmol/L Normal 98-107 [facility] Comment on above: Order Comment: Speci men Type: BLOOD SPECIMENOrdering Facility: [facility] Address: [address] [place], [place] [address] Performed By: #### 2 4323-8 ####[facility] LABCLIA [id number] [place] [address] [place] CO2 [Moles/Vol] 24 mmol/L Normal 22-30 [facility] Comment on above: Order Comment: Speci men Type: BLOOD SPECIMENOrdering Facility: [facility] Address: [address] [place], [place] [address] Performed By: #### 2 4323-8 ####[facility] LABCLIA [id number] [place] [address] [place] Creatinine [Mass/Vol] 0.86 mg/dL Normal 0.58-0.96 [facility] Comment on above: Order Comment: Speci men Type: BLOOD SPECIMENOrdering Facility: [facility] Address: [address] [place], [place] [address] Performed By: #### 2 4323-8 ####[facility] LABCLIA [id number] [place] [address] [place] Creatinine and Glomerular filtration rate.predicted panel (S/P/Bld) 77 mL/min/1.73m??? Normal >=60 [facility] Comment on above: Order Comment: Speci lon Type: BLOOD SPECIMENOrdering Facility: [facility] Address: [address] [place] [address] Result Comment: Michaela mated Glomerular Filtration Rate [...] actual GFR. Performed By: #### 2 4323-8 ####[facility] LABIA [id number] [place] [address] [place] Glucose [Mass/Vol] 115 mg/dL High 74-99 [facility] Comment on above: Order Comment: Specmatti forrest Type: BLOOD SPECIMENOrdering Facility: [facility] Address: [address] [place] [address] Result Comment: The [place] Diabetes Association (ADA) provides guidance for cutoff [...] Standards of Medical Care in Diabetes 2016, [place] [employer]. Diabetes Care. 2016.39(Suppl 1). Performed By: #### 2 4323-8 ####[facility] LABCLIA [id number] [address] [address] [place] Potassium [Moles/Vol] 4.5 mmol/L Normal 3.7-5.1 [facility] Comment on above: Order Comment: Speci men Type: BLOOD SPECIMENOrdering Facility: [facility] Address: [address] [place] [address] Performed By: #### 2 4323-8 ####[facility] LABCLIA [id number] [place] [address] [place] Protein [Mass/Vol] 6.6 g/dL Normal 6.3-8.0 [facility] Comment on above: Order Comment: Speci men Type: BLOOD SPECIMENOrdering Facility: [facility] Address: [address] [place] [address] Performed By: #### 2 4323-8 ####[facility] LABCLIA [id number] [place] [address] [place] Sodium [Moles/Vol] 138 mmol/L Normal 136-144 [facility] Comment on above: Order Comment: Speci men Type: BLOOD SPECIMENOrdering Facility: [facility] Address: [address] [place] [address] Performed By: #### 2 4323-8 ####[facility] LABCLIA [id number] [place] [address] [place] Urea nitrogen [Mass/Vol] 15 mg/dL Normal 7-21 [facility] Comment on above: Order Comment: Speci men Type: BLOOD SPECIMENOrdering Facility: [facility] Address: [address] [place] [address] Performed By: #### 2 4323-8 ####[facility] LABCLIA [id number] [place] [address] [place] Eosinophils/100 WBC Auto (Bl d)on 12-21-2023 Eosinophils/100 WBC (Bld) 2.2 % [facility] Erythrocyte distribution wid th Auto (RBC) [Ratio]on 12-21-2023 Erythrocyte distribution width (RBC) [Ratio] 12.5 % 11.5-15.0 [facility] Ferritin SerPl-ncon 2023 Ferritin [Mass/Vol] 113.0 ng/mL Normal 14.7-205.1 [facility] Comment on above: Order Comment: Speci men Type: BLOOD SPECIMENOrdering Facility: [facility] Address: [address] [place] [address] Performed By: #### 2 284-8, 2132-9, 84830-1, 2276-4 ####[facility] LABCLIA [id number] [place] [address] [place] F[facility] Folate [Mass/Vol] ng/mL Normal >4.7 [facility] Comment on above: Order Comment: Speci men Type: BLOOD SPECIMENOrdering Facility: [facility] Address: [address] [place] [address] Result Comment: A re sult of > 20 ng/mL is not necessarily indicative of a pathologic or treatable condition: it reflects a limitation of the test methodology. Assay reference range: 4.8 to 24.2 ng/mL. Suitable for detection of folate deficiency. Reference: Folate III (Folate III) [package insert V 1.0 Pakistani]. [facility], [place], [place]: March 2015. Performed By: #### 2 284-8, 2132-9, 81246-4, 2276-4 ####[facility] LABCLIA [id number] [place] [address] [place] Hematocrit Auto (Bld) [Volum e fraction]on 12-21-2023 Hematocrit (Bld) [Volume fraction] 36.3 % 36.0-46.0 [facility] Hemoglobin [Mass/volume] in Bloodon 12-21-2023 Hemoglobin (Bld) [Mass/Vol] 11.8 g/dL 11.5-15.5 [facility] Iron and Iron binding capaci ty panelon 12-21-2023 Iron [Mass/Vol] 44 ug/dL Normal 41-186 [facility] Comment on above: Order Comment: Speci men Type: BLOOD SPECIMENOrdering Facility: [facility] Address: [address] [place], [place] [address] Performed By: #### 2 284-8, 2131-9, 68030-1, 6-4 ####[facility] LABCLIA [id number] [address] [address] [place] Iron binding capacity [Mass/Vol] 349 ug/dL Normal 232-386 [facility] Comment on above: Order Comment: Speci men Type: BLOOD SPECIMENOrdering Facility: [facility] Address: [address] [place], [place] [address] Performed By: #### 2 284-8, 2131-9, 79014-2, 2275-4 ####[facility] LABCLIA [id number] [place] [id number] [place] Iron/TIBC [Molar ratio] 12.6 % Low 15.0-57.0 [facility] Comment on above: Order Comment: Speci men Type: BLOOD SPECIMENOrdering Facility: [facility] Address: [address] [place] [address] Performed By: #### 2 284-8, 2131-9, 63230-3, 2275-4 ####[facility] LABCLIA [id number] [place] [id number] [place] Iron binding capacity [Mass/ volume] in Serum or Plasmaon 12-21-2023 Iron binding capacity [Mass/Vol] 349 ug/dL 232-386 [facility] Iron saturation [Mass Fracti on] in Serum or Plasmaon 12-21-2023 Iron saturation [Mass fraction] 12.6 % Low 15.0-57.0 [facility] Laboratory - Chemistry and C hemistry - challengeon 12-21-2023 Albumin [Mass/Vol] 4.3 g/dL 3.9-4.9 [facility] ALP [Catalytic activity/Vol] 105 U/L 34-123 [facility] ALT [Catalytic activity/Vol] 30 U/L 7-38 [facility] AST [Catalytic activity/Vol] 33 U/L 13-35 [facility] Bilirubin [Mass/Vol] 0.3 mg/dL 0.2-1.3 [facility] Calcium [Mass/Vol] 9.5 mg/dL 8.5-10.2 [facility] Chloride [Moles/Vol] 100 mmol/L 98-107 [facility] CO2 [Moles/Vol] 24 mmol/L 22-30 [facility] Cobalamin (Vitamin B12) [Mass/Vol] 514 pg/mL 232-1245 [facility] Creatinine [Mass/Vol] 0.86 mg/dL 0.58-0.96 [facility] Ferritin [Mass/Vol] 113.0 ng/mL 14.7-205.1 [facility] Glucose [Mass/Vol] 115 mg/dL High 74-99 [facility] Comment on above: The [place] Diabete s Association (ADA) provides guidance for [...] Standards of Medical Care in Diabetes 2016, [place] Diabetes Association. Diabetes Care. 2016.39(Suppl 1). Iron [Mass/Vol] 44 ug/dL 41-186 [facility] Potassium [Moles/Vol] 4.5 mmol/L 3.7-5.1 [facility] Sodium [Moles/Vol] 138 mmol/L 136-144 [facility] Urea nitrogen [Mass/Vol] 15 mg/dL 7-21 [facility] - Hematology and Cell countson 12-21-2023 Eosinophils (Bld) [#/Vol] 0.18 10*3/uL <0.46 [facility] Immature granulocytes (Bld) [#/Vol] 0.03 10*3/uL <0.10 [facility] Immature granulocytes/100 WBC (Bld) 0.4 % [facility] Leukocytes [#/volume] correc ifrah for nucleated erythrocytes in Blood by Automated counon 12-21-2023 WBC corrected for nucl RBC Auto (Bld) [#/Vol] 8.13 k/uL 3.70-11.00 [facility] Lymphocytes Auto (Bld) [#/Vo l]on 12-21-2023 Lymphocytes (Bld) [#/Vol] 2.48 10*3/uL 1.00-4.00 [facility] Lymphocytes/100 WBC Auto (Bl d)on 12-21-2023 Lymphocytes/100 WBC (Bld) 30.5 % [facility] MCH Auto (RBC) [Entitic mass ]on 12-21-2023 MCH (RBC) [Entitic mass] 30.8 pg 26.0-34.0 [facility] MCHC Auto (RBC) [Mass/Vol]on 12-21-2023 MCHC (RBC) [Mass/Vol] 32.5 g/dL 30.5-36.0 [facility] MCV Auto (RBC) [Entitic vol] on 12-21-2023 MCV (RBC) [Entitic vol] 94.8 fL 80.0-100.0 [facility] Monocytes Auto (Bld) [#/Vol] on 12-21-2023 Monocytes (Bld) [#/Vol] 0.69 10*3/uL <0.87 [facility] Monocytes/100 WBC Auto (Bld) on 12-21-2023 Monocytes/100 WBC (Bld) 8.5 % [facility] Neutrophils Auto (Bld) [#/Vo l]on 12-21-2023 Neutrophils (Bld) [#/Vol] 4.71 10*3/uL 1.45-7.50 [facility] Neutrophils/100 WBC Auto (Bl d)on 12-21-2023 Neutrophils/100 WBC (Bld) 57.9 % [facility] No Panel Informationon 12-20 Estimated GFR (CKD-EPI) 77 mL/min/1.73m??? >=60 [facility] Comment on above: Estimated Glomerular Filtration Rate [...] reflect actual GFR. Folate >20.0 ng/mL >4.7 [facility] Comment on above: A result of > 20 ng/ mL is not necessarily indicative of a pathologic or treatable condition: it reflects a limitation of the test methodology.Assay reference range: 4.8 to 24.2 ng/mL. Suitable for detection of folate deficiency.Reference:Folate III (Folate III) [package insert V 1.0 Pakistani]. [employer], [place], [place]: March 2015. Nucleated RBC Auto (Bld) [#/ Vol]on 12-21-2023 Nucleated RBC (Bld) [#/Vol] 10*3/uL <0.01 [facility] Nucleated erythrocytes [Pres ence] in Blood by Automated counton 12-21-2023 Nucleated RBC Auto Ql (Bld) 0.0 /100{WBC} [facility] Platelet mean volume Auto (B ld) [Entitic vol]on 12-21-2023 Platelet mean volume (Bld) [Entitic vol] 9.8 fL 9.0-12.7 [facility] Platelets Auto (Bld) [#/Vol] on 12-21-2023 Platelets (Bld) [#/Vol] 200 10*3/uL 150-400 [facility] Protein [Mass/volume] in Ser um or Plasmaon 12-21-2023 Protein [Mass/Vol] 6.6 g/dL 6.3-8.0 [facility] RBC Auto (Bld) [#/Vol]on RBC (Bld) [#/Vol] 3.83 10*6/uL Low 3.90-5.20 [facility]ics #on 12-21-2023 Reticulocytes (Bld) [#/Vol] 0.03798 10*3/uL Normal 0.018-0.10 0 [facility] Comment on above: Order Comment: Joselyn forrest Type: BLOOD SPECIMENOrdering Facility: [facility] Address: [address] [place] [address] Performed By: #### 5 7021-8, 18630-9 ####[facility] LABCLIA [id number] [place] [address] Reticulocytes (Bld) [#/Vol]o n 12-21-2023 Reticulocytes/100 RBC (Bld) 1.2 % Normal 0.4-2.0 [facility] Comment on above: Order Comment: Speci men Type: BLOOD SPECIMENOrdering Facility: [facility] Address: [place] [address] Performed By: #### 5 7021-8, 87807-7 ####[facility] LABCLIA [id number] [place] [address] Reticulocytes/100 RBC Auto ( Bld)on 12-21-2023 Reticulocytes/100 RBC (Bld) 1.2 % 0.4-2.0 [facility] Serum or plasma anion gap de terminationon 12-21-2023 Anion gap [Moles/Vol] 14 mmol/L 8- [facility] Vit B12 SerPl-mCncon 024 Cobalamin (Vitamin B12) [Mass/Vol] 514 pg/mL Normal 232-1245 [facility] Comment on above: Order Comment: Bibianai men Type: BLOOD SPECIMENOrdering Facility: [facility] Address: [address] [place] [address] Performed By: #### 2 284-8, 2132-9, 82023-7, 2276-4 ####[facility] LABCLIA [id number] [place] [id number] [facility] CNNURSEon 11-28-2023 CNNURSE Nurse Visit ([place]) JEANNETTE HURTADO ([id number]) 1965 F Date Time Provider Department 11/28/23 2:00 PM MERVIN NURSE EDMUND SHRUTHI TRESSALEXI During your visit today, we recorded the following information about you: Temperature Pulse Respiration Blood pressure 97.5 degrees 84/minute 16/minute 151/83 Mariela Sarmiento MA 11/28/2023 2:18 PM Signed Patient Identification confirmed: yes. Injection given and documented on JUL per provider order. Mariela Sarimento MA Referring Provider: SELF [200] Allergies As [...] Encounter Status:Closed by MARIELA SARMIENTO on 11/28/23 [facility] 10-31-2023 CNNURSE Nurse Visit (HEMAS[place]) JEANNETTE HURTADO ([id number]) 1965 F Date Time Provider Department 10/31/23 1:30 PM MERVIN CARRERO During your visit today, we recorded [...] Encounter Status:Closed by TOÑA CASTRO on 10/31/23 Normal [facility] JEANNETTE HURTADO ([id number]) 1965 F Date Time Provider Department 10/03/23 [...] dietary iron intake [D50.8] Order(s):TREATMENT PARAMETER-NOT NEEDED [[id number]] Order #: [id number]: 1 BCN NURSING COMMUNICATION [[id number]] Order #: [id number]: 1 STANDING [] cyanocobalamin 1,000 mcg injectionDisp: [...] *02/07/2023 Visit Notes: >> Katina Howe MA Mon October 03, 2023 2:03 PM Status: Signed Patient Identification confirmed: yes. Injection given and documented on JUL per provider order. Katina Howe MA Prescriptions ordered this encounter Disp Refills Start End CYANOCOBALAMIN (VIT B-12) 1,000 MCG/* 10/03/2023 10/03/2023 Route: INTRAMUSCULA Encounter Status:Closed by KATINA HOWE on 10/03/23 [facility] CNOVSPon 10-03-2023 OVSP Visit (SP) Office ([facility]) JEANNETTE HURTADO ([id number]) 1965 F Date Time Provider Department 10/03/23 1:15 PM JOSE ROSE During your visit today, we recorded the following information about you: Temperature Pulse Respiration Blood pressure 97.8 degrees 76/minute 16/minute 136/82 Weight Height 89.1 kg 1.676 m Jose Rose MD 10/03/2023 6:23 PM Signed NAME: Jeannette Hurtado CLINIC NO.: [id number] DATE OF SERVICE: October 03, 2023 (José) [...] replacement / balancing that is offered by [employer]. Updated Visit, July 11, 2023: Jeannette Hurtado [...] coated (A (more content not included)... Normal [facility] CBC W Auto Differential pane l (Bld)on 09-29-2023 Basophils (Bld) [#/Vol] 0.06 10*3/uL Normal <0.11 [facility] Comment on above: Order Comment: Speci men Type: BLOOD SPECIMENOrdering Facility: [facility] Address: [address] [place] [address] Performed By: #### 1 4196-0, 84178-4 ####[facility] LABCLIA [id number] [place] [address] Basophils/100 WBC (Bld) 0.6 % Normal [facility] Comment on above: Order Comment: Speci men Type: BLOOD SPECIMENOrdering Facility: [facility] Address: [address] [place] [address] Performed By: #### 1 4196-0, 82887-3 ####[facility] LABCLIA [id number] [place] [address] Differential cell count method Nom (Bld) Auto Normal [facility] Comment on above: Order Comment: Speci men Type: BLOOD SPECIMENOrdering Facility: [facility] Address: [address] [place] [address] Performed By: #### 1 4196-0, 23582-2 ####[facility] LABCLIA [id number] [place] [address] Eosinophils (Bld) [#/Vol] 0.22 10*3/uL Normal <0.46 [facility] Comment on above: Order Comment: Speci men Type: BLOOD SPECIMENOrdering Facility: [facility] Address: [address] [place] [address] Performed By: #### 1 4196-0, 17088-6 ####[facility] LABCLIA [id number] [place] [address] Eosinophils/100 WBC (Bld) 2.2 % Normal [facility] Comment on above: Order Comment: Speci men Type: BLOOD SPECIMENOrdering Facility: [facility] Address: [address] [place] [address] Performed By: #### 1 4196-0, ####[facility] LABCLIA [id number] [place] [address] Erythrocyte distribution width (RBC) [Ratio] 13.2 % Normal 11.5-15.0 [facility] Comment on above: Order Comment: Speci men Type: BLOOD SPECIMENOrdering Facility: [facility] Address: [address] [place] [address] Performed By: #### 1 4196-0, 91273-5 ####[facility] LABCLIA [id number] [place] [address] Hematocrit (Bld) [Volume fraction] 38.5 % Normal 36.0-46.0 [facility] Comment on above: Order Comment: Speci men Type: BLOOD SPECIMENOrdering Facility: [facility] Address: [address] [place] [address] Performed By: #### 1 4196-0, 70384-6 ####[facility] LABCLIA [id number] [place] [address] Hemoglobin (Bld) [Mass/Vol] 12.9 g/dL Normal 11.5-15.5 [facility] Comment on above: Order Comment: Speci men Type: BLOOD SPECIMENOrdering Facility: [facility] Address: [address] [place] [address] Performed By: #### 1 4196-0, 72785-1 ####[facility] LABCLIA [id number] [place] [address] Immature granulocytes (Bld) [#/Vol] 0.03 10*3/uL Normal <0.10 [facility] Comment on above: Order Comment: Speci men Type: BLOOD SPECIMENOrdering Facility: [facility] Address: [address] [place] [address] Performed By: #### 1 4196-0, 33468-8 ####[facility] LABIA [id number] [place] [address] Immature granulocytes/100 WBC (Bld) 0.3 % Normal [facility] Comment on above: Order Comment: Speci men Type: BLOOD SPECIMENOrdering Facility: [facility] Address: [address] [place] [address] Performed By: #### 1 4196-0, 46499-8 ####[facility] LABCLIA [id number] [place] [address] Lymphocytes (Bld) [#/Vol] 2.48 10*3/uL Normal 1.00-4.00 [facility] Comment on above: Order Comment: Speci men Type: BLOOD SPECIMENOrdering Facility: [facility] Address: [address] [place] [address] Performed By: #### 1 4196-0, 29626-2 ####[facility] LABCLIA [id number] [place] [address] Lymphocytes/100 WBC (Bld) 24.8 % Normal [facility] Comment on above: Order Comment: Speci men Type: BLOOD SPECIMENOrdering Facility: [facility] Address: [address] [place] [address] Performed By: #### 1 4196-0, 09891-5 ####[facility] LABCLIA [id number] [place] [address] MCH (RBC) [Entitic mass] 31.4 pg Normal 26.0-34.0 [facility] Comment on above: Order Comment: Speci men Type: BLOOD SPECIMENOrdering Facility: [facility] Address: [address] [place] [address] Performed By: #### 1 4196-0, 95120-4 ####[facility] LABCLIA [id number] [place] [address] MCHC (RBC) [Mass/Vol] 33.5 g/dL Normal 30.5-36.0 [facility] Comment on above: Order Comment: Speci men Type: BLOOD SPECIMENOrdering Facility: [facility] Address: [address] [place] [address] Performed By: #### 1 4196-0, 52634-6 ####[facility] LABIA [id number] [place] [address] MCV (RBC) [Entitic vol] 93.7 fL Normal 80.0-100.0 [facility] Comment on above: Order Comment: Speci men Type: BLOOD SPECIMENOrdering Facility: [facility] Address: [address] [place] [address] Performed By: #### 1 4196-0, 33065-0 ####[facility] LABCLIA [id number] [place] [address] Monocytes (Bld) [#/Vol] 0.66 10*3/uL Normal <0.87 [facility] Comment on above: Order Comment: Speci men Type: BLOOD SPECIMENOrdering Facility: [facility] Address: [address] [place] [address] Performed By: #### 1 4196-0, 30389-4 ####[facility] LABCLIA [id number] [place] [address] Monocytes/100 WBC (Bld) 6.6 % Normal [facility] Comment on above: Order Comment: Speci men Type: BLOOD SPECIMENOrdering Facility: [facility] Address: [address] [place], [place] [address] Performed By: #### 1 4196-0, 62566-6 ####[facility] LABIA [id number] [place] [address] Neutrophils (Bld) [#/Vol] 6.55 10*3/uL Normal 1.45-7.50 [facility] Comment on above: Order Comment: Speci men Type: BLOOD SPECIMENOrdering Facility: [facility] Address: [address] [place] [address] Performed By: #### 1 4196-0, 57791-6 ####[facility] LABIA [id number] [place] [address] Neutrophils/100 WBC (Bld) 65.5 % Normal [facility] Comment on above: Order Comment: Speci men Type: BLOOD SPECIMENOrdering Facility: [facility] Address: [address] [place] [address] Performed By: #### 1 4196-0, 58479-5 ####[facility] LABIA [id number] [place] [address] Nucleated RBC (Bld) [#/Vol] 10*3/uL Normal <0.01 [facility] Comment on above: Order Comment: Speci men Type: BLOOD SPECIMENOrdering Facility: [facility] Address: [address] [place] [address] Performed By: #### 1 4196-0, 86861-2 ####[facility] LABCLIA [id number] [place] [address] Nucleated RBC/100 WBC (Bld) [Ratio] 0.0 /100 WBC Normal [facility] Comment on above: Order Comment: Speci men Type: BLOOD SPECIMENOrdering Facility: [facility] Address: [address] [place] [address] Performed By: #### 1 4196-0, 68906-0 ####[facility] LABCLIA [id number] [place] [address] Platelet mean volume (Bld) [Entitic vol] 9.8 fL Normal 9.0-12.7 [facility] Comment on above: Order Comment: Speci men Type: BLOOD SPECIMENOrdering Facility: [facility] Address: [address] [place] [address] Performed By: #### 1 4196-0, 22050-4 ####[facility] LABCLIA [id number] [place] [address] Platelets (Bld) [#/Vol] 250 10*3/uL Normal 150-400 [facility] Comment on above: Order Comment: Speci men Type: BLOOD SPECIMENOrdering Facility: [facility] Address: [address] [place] [address] Performed By: #### 1 4196-0, 20210-6 ####[facility] LABCLIA [id number] [place] [address] RBC (Bld) [#/Vol] 4.11 10*6/uL Normal 3.90-5.20 [facility] Comment on above: Order Comment: Speci men Type: BLOOD SPECIMENOrdering Facility: [facility] Address: [address] [place] [address] Performed By: #### 1 4196-0, 71078-4 ####[facility] LABCLIA [id number] [place] [address] WBC (Bld) [#/Vol] 10.00 10*3/uL Normal 3.70-11.00 [facility] Comment on above: Order Comment: Speci men Type: BLOOD SPECIMENOrdering Facility: [facility] Address: [address] [place] [address] Performed By: #### 1 4196-0, 72493-2 ####[facility] LABCLIA [id number] [place] [address] Comprehensive metabolic 2000 panelon 09-29-2023 Albumin [Mass/Vol] 4.7 g/dL Normal 3.9-4.9 [facility] Comment on above: Order Comment: Speci men Type: BLOOD SPECIMENOrdering Facility: [facility] Address: [address] [place] [address] Performed By: #### 2 4323-8 ####[facility] LABCLIA [id number] [place] [address] ALP [Catalytic activity/Vol] 115 U/L Normal 34-123 [facility] Comment on above: Order Comment: Speci men Type: BLOOD SPECIMENOrdering Facility: [facility] Address: [address] [place] [address] Performed By: #### 2 4323-8 ####[facility] LABCLIA [id number] [place] [address] ALT [Catalytic activity/Vol] 36 U/L Normal 7-38 [facility] Comment on above: Order Comment: Speci men Type: BLOOD SPECIMENOrdering Facility: [facility] Address: [address] [place] [address] Performed By: #### 2 4323-8 ####[facility] LABCLIA [id number] [place] [address] Anion gap [Moles/Vol] 11 mmol/L Normal 9-18 [facility] Comment on above: Order Comment: Speci men Type: BLOOD SPECIMENOrdering Facility: [facility] Address: [address] [place] [address] Performed By: #### 2 4323-8 ####[facility] LABCLIA [id number] [place] [address] AST [Catalytic activity/Vol] 43 U/L High 13-35 [facility] Comment on above: Order Comment: Speci men Type: BLOOD SPECIMENOrdering Facility: [facility] Address: [address] [place] [address] Performed By: #### 2 4323-8 ####[facility] LABCLIA [id number] [place] [address] Bilirubin [Mass/Vol] 0.4 mg/dL Normal 0.2-1.3 [facility] Comment on above: Order Comment: Speci men Type: BLOOD SPECIMENOrdering Facility: [facility] Address: [address] [place] [address] Performed By: #### 2 4323-8 ####[facility] LABCLIA [id number] [place] [address] Calcium [Mass/Vol] 10.3 mg/dL High 8.5-10.2 [facility] Comment on above: Order Comment: Speci men Type: BLOOD SPECIMENOrdering Facility: [facility] Address: [address] [place] [address] Performed By: #### 2 4323-8 ####[facility] LABCLIA [id number] [place] [address] Chloride [Moles/Vol] 103 mmol/L Normal 97-105 [facility] Comment on above: Order Comment: Speci men Type: BLOOD SPECIMENOrdering Facility: [facility] Address: [address] [place] [address] Performed By: #### 2 4323-8 ####[facility] LABCLIA [id number] [place] [address] CO2 [Moles/Vol] 27 mmol/L Normal 22-30 [facility] Comment on above: Order Comment: Speci men Type: BLOOD SPECIMENOrdering Facility: [facility] Address: [address] [place] [address] Performed By: #### 2 4323-8 ####[facility] LABCLIA [id number] [place] [address] Creatinine [Mass/Vol] 0.92 mg/dL Normal 0.58-0.96 [facility] Comment on above: Order Comment: Speci men Type: BLOOD SPECIMENOrdering Facility: [facility] Address: [address] [place] [address] Performed By: #### 2 4323-8 ####[facility] LABCLIA [id number] [place] [address] Creatinine and Glomerular filtration rate.predicted panel (S/P/Bld) 72 mL/min/1.73m??? Normal >=60 [facility] Comment on above: Order Comment: Speci men Type: BLOOD SPECIMENOrdering Facility: [facility] Address: [address] [place] [address] Result Comment: Michaela mated Glomerular Filtration Rate [...] actual GFR. Performed By: #### 2 4323-8 ####[facility] LABCLIA [id number] [place] [address] Glucose [Mass/Vol] 148 mg/dL High 74-99 [facility] Comment on above: Order Comment: Speci men Type: BLOOD SPECIMENOrdering Facility: [facility] Address: [address] [place] [address] Result Comment: The [place] Diabetes [employer] (ADA) provides guidance for cutoff [...] Standards of Medical Care in Diabetes 2016, [place] [employer]. Diabetes Care. 2016.39(Suppl 1). Performed By: #### 2 4323-8 ####[facility] LABCLIA [id number] [place] [address] Potassium [Moles/Vol] 4.7 mmol/L Normal 3.7-5.1 [facility] Comment on above: Order Comment: Speci men Type: BLOOD SPECIMENOrdering Facility: [facility] Address: [address] [place] [address] Performed By: #### 2 4323-8 ####[facility] LABCLIA [id number] [place] [address] Protein [Mass/Vol] 7.8 g/dL Normal 6.3-8.0 [facility] Comment on above: Order Comment: Speci men Type: BLOOD SPECIMENOrdering Facility: [facility] Address: [address] [place] [address] Performed By: #### 2 4323-8 ####[facility] LABCLIA [id number] [place] [address] Sodium [Moles/Vol] 141 mmol/L Normal 136-144 [facility] Comment on above: Order Comment: Speci men Type: BLOOD SPECIMENOrdering Facility: [facility] Address: [address] [place] [address] Performed By: #### 2 4323-8 ####[facility] LABCLIA [id number] [place] [address] Urea nitrogen [Mass/Vol] 13 mg/dL Normal 7-21 [facility] Comment on above: Order Comment: Speci men Type: BLOOD SPECIMENOrdering Facility: [facility] Address: [address] [place] [address] [place] [id number] Performed By: #### 2 4323-8 ####CHELSEAKATHIMAISHA [facility] LABCLIA [id number] [place] [address] [facility] Ferritin [Mass/Vol] 202.0 ng/mL Normal 14.7-205.1 [facility] Comment on above: Order Comment: Speci men Type: BLOOD SPECIMENOrdering Facility: [facility] Address: [address] [place] [address] Performed By: #### 5 0190-8, 2275-08, 2132-01, 2283-12 ####[facility] LABCLIA [id number] [place] [address] [place] Folate [facility] Folate [Mass/Vol] 11.9 ng/mL Normal >4.7 [facility] Comment on above: Order Comment: Speci men Type: BLOOD SPECIMENOrdering Facility: [facility] Address: [address] [place] [address] Performed By: #### 5 0190-8, 2275-08, 2132-01, 2283-12 ####[facility] LABCLIA [id number] [place] [id number] [place] Iron and Iron binding capaci panelon 09-29-2023 Iron [Mass/Vol] 51 ug/dL Normal 41-186 [facility] Comment on above: Order Comment: Speci men Type: BLOOD SPECIMENOrdering Facility: [facility] Address: [address] [place] [address] Performed By: #### 5 0190-8, 2275-08, 2132-01, 2283-12 ####[facility] LABCLIA [id number] [place] [address] [place] Iron binding capacity [Mass/Vol] 362 ug/dL Normal 232-386 [facility] Comment on above: Order Comment: Speci men Type: BLOOD SPECIMENOrdering Facility: [facility] Address: [address] [place] [address] Performed By: #### 5 0190-8, 2275-4, 9, 8 ####[facility] LABCLIA [id number] [place] [address] [place] Iron/TIBC [Molar ratio] 14.1 % Low 15.0-57.0 [facility] Comment on above: Order Comment: Speci men Type: BLOOD SPECIMENOrdering Facility: [facility] Address: [address] [place] [address] Performed By: #### 5 0190-8, 2275-4, 9, 2283-12 ####[facility] LABCLIA [id number] [address] [place] Retics #on 09-29-2023 Reticulocytes (Bld) [#/Vol] 0.21583 10*3/uL Normal 0.018-0.10 0 [facility] Comment on above: Order Comment: Speci men Type: BLOOD SPECIMENOrdering Facility: [facility] Address: [address] [place] [address] Performed By: #### 1 4196-0, 68685-0 ####[facility] LABCLIA [id number] [place] [address] Reticulocytes (Bld) [#/Vol]o n 09-29-2023 Reticulocytes/100 RBC (Bld) 1.3 % Normal 0.4-2.0 [facility] Comment on above: Order Comment: Speci men Type: BLOOD SPECIMENOrdering Facility: [facility] Address: [address] [place] [address] Performed By: #### 1 4196-0, 47437-2 ####[facility] LABCLIA [id number] [place] [address] Vit B12 [facility]bbieFriends Hospitalmarco antonio 16-2 024 Cobalamin (Vitamin B12) [Mass/Vol] 479 pg/mL Normal 232-1245 [facility] Comment on above: Order Comment: Speci men Type: BLOOD SPECIMENOrdering Facility: [facility] Address: [address] [place] [address] Performed By: #### 5 0190-8, 2276-4, 2132-9, 2284-8 ####[facility] LABCLIA [id number] [place] [address] [place] BASIC METABOLIC PANLon 08-16 Anion gap [Moles/Vol] 6 mmol/L Normal 5-15 [facility] Comment on above: Performed By: #### C BCA, BMP, 3040-3, 03817-6, LIVR #### [facility] ([id number]) [address] [place] [address] 69836 Calcium [Mass/Vol] 8.8 mg/dL Normal 8.5-10.5 [facility] Comment on above: Performed By: #### C BCA, BMP, 3040-3, 03052-8, LIVR #### [facility] ([id number]) [address] [place] [address] 94928 Chloride [Moles/Vol] 104 mmol/L Normal 98-109 [facility] Comment on above: Performed By: #### C BCA, BMP, 3040-3, 88725-8, LIVR #### [facility] ([id number]) [address] [place] [address] 91583 CO2 [Moles/Vol] 21 mmol/L Low 22-32 [facility] Comment on above: Performed By: #### C BCA, BMP, 3040-3, 41286-3, LIVR #### [facility] ([id number]) [address] [place] [address] 92524 Creatinine [Mass/Vol] 0.76 mg/dL Normal 0.40-1.00 [facility] Comment on above: Result Comment: METH OD TRACEABLE TO IDMS STANDARD Performed By: #### C MIGUEL ÁNGEL HIGGINBOTHAM, 3040-3, 47443-7, LIVR #### [facility] ([id number]) [address] [place] [address] 78074 eGFR (CKD-EPI) NON-RACE DEPENDENT >90 Normal >59 [facility] Comment on above: Result Comment: Reported eGFR is based on the CKD-EPI 2020 equation that does not use a race coefficient. Performed By: #### C MIGUEL ÁNGEL HIGGINBOTHAM, 3040-3, 90417-9, LIVR #### [facility] ([id number]) [address] [place] [address] 83253 Glucose [Mass/Vol] 130 mg/dL High 65-99 [facility] Comment on above: Performed By: #### C MIGUEL ÁNGEL HIGGINBOTHAM, 3040-3, 73316-2, LIVR #### [facility] ([id number]) [address] [place] [address] 07836 Potassium [Moles/Vol] 3.8 mmol/L Normal 3.5-5.0 [facility] Comment on above: Performed By: #### C MIGUEL ÁNGEL HIGGINBOTHAM, 3040-3, 68462-7, LIVR #### [facility] ([id number]) [address] [place] [address] 06274 Sodium [Moles/Vol] 131 mmol/L Low 134-146 [facility] Comment on above: Performed By: #### C NEFTALY BMP, 3040-3, 37205-2, LIVR #### [facility] ([id number]) [address] [place] [address] 19283 Urea nitrogen [Mass/Vol] 13 mg/dL Normal 5-23 [facility] Comment on above: Performed By: #### C BCA, BMP, 3040-3, 49220-3, LIVR #### [facility] ([id number]) [address] [place] [address] 47073 CBC AND AUTO DIFFon 08-17-19 24 ABSOLUTE BASOPHIL 0.0 X10E9/L Normal 0.0-0.2 [facility] Comment on above: Performed By: #### C BCA, BMP, 3040-3, 62086-3, LIVR #### [facility] ([id number]) [address] [place] [address] 15159 ABSOLUTE NEUTROPHIL 7.1 X10E9/L High 1.5-6.6 [facility] Comment on above: Performed By: #### C BCA, BMP, 3040-3, 62008-0, LIVR #### [facility] ([id number]) [address] [place] [address] 04684 Basophils/100 WBC (Bld) 0.5 % Normal [facility] Comment on above: Performed By: #### C BCA, BMP, 3040-3, 86413-5, LIVR #### [facility] ([id number]) [address] [place] [address] 50790 Eosinophils (Bld) [#/Vol] 0.1 10*3/uL Normal 0.0-0.4 [facility] Comment on above: Performed By: #### C BCA, BMP, 3040-3, 31304-0, LIVR #### [facility] ([id number]) [address] [place] [address] 97038 Eosinophils/100 WBC (Bld) 1.2 % Normal [facility] Comment on above: Performed By: #### C BCA, BMP, 3040-3, 14156-7, LIVR #### [facility] ([id number]) [address] [place] [address] 88681 Erythrocyte distribution width (RBC) [Ratio] 13.8 % Normal 11.5-15.0 [facility] Comment on above: Performed By: #### C BCA, BMP, 3040-3, 76092-8, LIVR #### [facility] ([id number]) [address] [place] [address] 33531 Hematocrit (Bld) [Volume fraction] 38.5 % Normal 35-47 [facility] Comment on above: Performed By: #### C BCA, BMP, 3040-3, 31917-9, LIVR #### [facility] ([id number]) [address] [place] [address] 26227 Hemoglobin (Bld) [Mass/Vol] 13.2 g/dL Normal 11.7-15.5 [facility] Comment on above: Performed By: #### C NEFTALY, BMP, 0-3, 39940-9, LIVR #### [facility] ([id number]) [address] [place] [address] 63753 Lymphocytes (Bld) [#/Vol] 1.0 10*3/uL Normal 1.0-3.5 [facility] Comment on above: Performed By: #### C NEFTALY, BMP, 0-3, 74526-9, LIVR #### [facility] ([id number]) [address] [place] [address] 68538 Lymphocytes/100 WBC (Bld) 11.8 % Normal [facility] Comment on above: Performed By: #### C BCA, BMP, 3040-3, 89471-0, LIVR #### [facility] ([id number]) [address] [place] [address] 63424 MCH (RBC) [Entitic mass] 31.0 pg Normal 27-34 [facility] Comment on above: Performed By: #### C BCA, BMP, 3040-3, 72070-0, LIVR #### [facility] ([id number]) [address] [place] [address] 29702 MCHC (RBC) [Mass/Vol] 34.2 g/dL Normal 32-36 [facility] Comment on above: Performed By: #### C BCA, BMP, 3040-3, 90399-8, LIVR #### [facility] ([id number]) [address] [place] [address] 73785 MCV (RBC) [Entitic vol] 91 fL Normal 80-100 [facility] Comment on above: Performed By: #### C BCA, BMP, 3040-3, 90184-0, LIVR #### [facility] ([id number]) [address] [place] [address] 28726 Monocytes (Bld) [#/Vol] 0.5 10*3/uL Normal 0-0.9 [facility] Comment on above: Performed By: #### Rosa Elena BCA, BMP, 3040-3, 94513-9, LIVR #### [facility] ([id number]) [address] [place] [address] 33192 Monocytes/100 WBC (Bld) 6.2 % Normal [facility] Comment on above: Performed By: #### C BCA, BMP, 3040-3, 07307-9, LIVR #### [facility] ([id number]) [address] [place] [address] 14991 Neutrophils/100 WBC (Bld) 80.3 % Normal [facility] Comment on above: Performed By: #### C BCA, BMP, 3040-3, 46308-4, LIVR #### [facility] ([id number]) [address] [place] [address] 48057 Platelet mean volume (Bld) [Entitic vol] 7.6 fL Normal 7-12 [facility] Comment on above: Performed By: #### C BCA, BMP, 3040-3, 27763-5, LIVR #### [facility] ([id number]) [address] [place] [address] 00404 Platelets (Bld) [#/Vol] 236 10*3/uL Normal 150-450 [facility] Comment on above: Performed By: #### C BCA, BMP, 3040-3, 33214-9, LIVR #### [facility] ([id number]) [address] [place] [address] 14411 RBC COUNT 4.25 X10E12/L Normal 3.80-5.20 [facility] Comment on above: Performed By: #### C BCA, BMP, 3040-3, 09675-0, LIVR #### [facility] ([id number]) [address] [place] [address] 63458 WBC (Bld) [#/Vol] 8.9 10*3/uL Normal 4.0-11.0 [facility] Comment on above: Performed By: #### C BCA, BMP, 3040-3, 34093-8, LIVR #### [facility] ([id number]) [address] [place] [address] 35458 LIPASEon 08-17-2023 Lipase [Catalytic activity/Vol] 41 U/L High 17-40 [facility] Comment on above: Performed By: #### C BCA, BMP, 3040-3, 93563-5, LIVR #### [facility] ([id number]) [address] [place] [address] 11128 LIVER PANELon 08-17-2023 Albumin [Mass/Vol] 4.4 g/dL Normal 3.2-5.3 [facility] Comment on above: Performed By: #### C BCA, BMP, 3040-3, 71144-5, LIVR #### [facility] ([id number]) [address] [place] [address] 62819 ALP [Catalytic activity/Vol] 96 U/L Normal 39-130 [facility] Comment on above: Performed By: #### C BCA, BMP, 3040-3, 05807-8, LIVR #### [facility] ([id number]) [address] [place] [address] 76671 ALT [Catalytic activity/Vol] 52 U/L High 0-31 [facility] Comment on above: Performed By: #### C BCA, BMP, 3040-3, 20854-0, LIVR #### [facility] ([id number]) [address] [place] [address] 52865 AST [Catalytic activity/Vol] 54 U/L High 0-41 [facility] Comment on above: Performed By: #### C BCA, BMP, 3040-3, 09375-4, LIVR #### [facility] ([id number]) [address] [place] [address] 26259 Bilirubin [Mass/Vol] 0.8 mg/dL Normal 0.3-1.2 [facility] Comment on above: Performed By: #### C BCA, BMP, 3040-3, 19991-4, LIVR #### [facility] ([id number]) [address] [place] [address] 34296 Bilirubin.direct [Mass/Vol] 0.1 mg/dL Normal 0.0-0.4 [facility] Comment on above: Performed By: #### C BCA, BMP, 3040-3, 72366-6, LIVR #### [facility] ([id number]) [address] [place] [address] 87116 Protein [Mass/Vol] 7.9 g/dL Normal 6.0-8.0 [facility] Comment on above: Performed By: #### C BCA, BMP, 3040-3, 59887-1, LIVR #### [facility] ([id number]) [address] [place] [address] 27254 Lactate (P brandon) [Moles/Vol]o n 08-17-2023 LACTATE W/REFLEX 1.5 mmol/L Normal 0.4-2.0 [facility] Comment on above: Result Comment: Result did not trigger repeat Lactate, re-order if needed. Performed By: #### C BCA, BMP, 3040-3, 32372-8, LIVR #### [facility] ([id number]) [address] [place] [address], [place] [address] CNOVSPon 07-11-2023 CNOVSP Visit (SP) Office (H [facility]AS[facility]) JEANNETTE HURTADO ([id number]) 1965 F Date Time Provider Department 07/11/23 1:00 PM RUBEN WIGGINS During your visit today, we recorded the following information about you: Temperature Pulse Respiration Blood pressure 97.2 degrees 84/minute 16/minute 150/77 Weight Height 92.6 kg 1.676 m Ruben Wiggins APRN.CONFLICT RESOLUTION PROFESSIONAL 07/18/2023 12:17 PM Signed NAME: Jeannette Hurtado CLINIC NO.: [id number] DATE OF SERVICE: July 11, 2022 ([place]) [...] Hemoglobin (g/dL) (more content not included)... Normal [facility] JEANNETTE HURTADO ([id number]) 1965 F Date Time Provider Department 07/08/23 MANUEL RIVERS During your visit today, we recorded the following information about you: Manuel Rivers nguyen 07/08/2023 1:35 PM Signed Iron studies do not meet criteria for venofer infusions. Please cancel upcoming venofer appointment 07/11. Thank you, Manuel Rivers [facility] [place] 07/08/2023 2:51 PM Signed Appointment for Venofer cancelled. Spoke w/ patient and notified she will not receive Venofer on Tuesday and just see Ruben. Patient in agreement. Thanks! [place] Allergies As of Date: 07/08/2023 Noted Allergy Reaction COMPAZINE (PROCHLORPERAZINE EDISY*01/13/2005 LATEX 01/21/2023 16 - Unknown Date Reviewed: 04/04/2023 Reviewed by: Ruben Wiggins APRN.CONFLICT RESOLUTION PROFESSIONAL - Fully Assessed Reason for Visit: Medication Follow-up [270] Cmt: brandonofer Prescriptions as of 07/08/2023 - B-complex with [...] Status:Closed by TRAN [place] on 07/08/23 Normal [facility] ECG 12 lead ECGon 07-08-2023 ECG 12 lead ECG [facility] [place] [address] Electrocardiograph Report Signed Patient: Jeannette Hurtado MR#: [id number] : 1965 Acct:[id number] Age/Sex: 57 / F ADM Date: 07/08/23 Loc: Room: Type: [facility] Attending Dr: Haresh Middleton MD Ordering Provider: Frances Hidalgo DO Date of Service: 07/08/23 ECG/ECG 12 [...] previous ECGs available Confirmed by GUZMAN DUPREE [facility] ([id number]) on 07/08/2023 6:05:38 PM Referred By: ROCKY Electronically Signed By:CLAUDIA MURCIA MD [facility] Transcribed By: MUS Signed By Clayton Murcia MD 07/08/23 1805 Normal [facility] Absolute reticulocyte counto n 07-07-2023 Reticulocytes (Bld) [#/Vol] 0.75606 10*3/uL 0.018-0.10 0 [facility] Basophils Auto (Bld) [#/Vol] on 07-07-2023 Basophils (Bld) [#/Vol] 0.07 10*3/uL <0.11 [facility] Basophils/100 WBC Auto (Bld) on 07-07-2023 Basophils/100 WBC (Bld) 0.8 % [facility] Blood manual differential co mment interpretation narrativeon 07-07-2023 Manual differential comment Alec (Bld) [Interp] Auto [facility] CBC W Auto Differential pane l (Bld)on 07-07-2023 Basophils (Bld) [#/Vol] 0.07 10*3/uL Normal <0.11 [facility] Comment on above: Order Comment: Speci men Type: BLOOD SPECIMENOrdering Facility: [facility] Address: [address] [place] [address] Performed By: #### 5 7021-8, 51567-4 ####[facility] LABCLIA [id number] [place] [address] Basophils/100 WBC (Bld) 0.8 % Normal [facility] Comment on above: Order Comment: Speci men Type: BLOOD SPECIMENOrdering Facility: [facility] Address: [address] [place] [address] Performed By: #### 5 7021-8, 62999-3 ####[facility] LABCLIA [id number] [place] [address] Differential cell count method Nom (Bld) Auto Normal [facility] Comment on above: Order Comment: Speci men Type: BLOOD SPECIMENOrdering Facility: [facility] Address: [address] [place] [address] Performed By: #### 5 7021-8, 78163-4 ####[facility] LABCLIA [id number] [place] [address] Eosinophils (Bld) [#/Vol] 0.22 10*3/uL Normal <0.46 [facility] Comment on above: Order Comment: Speci men Type: BLOOD SPECIMENOrdering Facility: [facility] Address: [address] [place] [address] Performed By: #### 5 7021-8, 23405-9 ####[facility] LABCLIA [id number] [place] [address] Eosinophils/100 WBC (Bld) 2.4 % Normal [facility] Comment on above: Order Comment: Speci men Type: BLOOD SPECIMENOrdering Facility: [facility] Address: [address] [place] [address] Performed By: #### 5 7021-8, 69108-2 ####[facility] LABCLIA [id number] [place] [address] Erythrocyte distribution width (RBC) [Ratio] 12.9 % Normal 11.5-15.0 [facility] Comment on above: Order Comment: Speci men Type: BLOOD SPECIMENOrdering Facility: [facility] Address: [address] [place] [address] Performed By: #### 5 7021-8, 92486-4 ####[facility] LABCLIA [id number] [place] [address] Hematocrit (Bld) [Volume fraction] 40.0 % Normal 36.0-46.0 [facility] Comment on above: Order Comment: Speci men Type: BLOOD SPECIMENOrdering Facility: [facility] Address: [address] [place] [address] Performed By: #### 5 7021-8, 29829-3 ####[facility] LABCLIA [id number] [place] [address] Hemoglobin (Bld) [Mass/Vol] 13.5 g/dL Normal 11.5-15.5 [facility] Comment on above: Order Comment: Speci men Type: BLOOD SPECIMENOrdering Facility: [facility] Address: [address] [place] [address] Performed By: #### 5 7021-8, 81441-5 ####[facility] LABCLIA [id number] [place] [address] Immature granulocytes (Bld) [#/Vol] 10*3/uL Normal <0.10 [facility] Comment on above: Order Comment: Speci men Type: BLOOD SPECIMENOrdering Facility: [facility] Address: [address] [place] [address] Performed By: #### 5 7021-8, 27981-4 ####[facility] LABCLIA [id number] [place] [address] Immature granulocytes/100 WBC (Bld) 0.2 % Normal [facility] Comment on above: Order Comment: Speci men Type: BLOOD SPECIMENOrdering Facility: [facility] Address: [address] [place] [address] Performed By: #### 5 7021-8, 29373-0 ####[facility] LABCLIA [id number] [place] [address] Lymphocytes (Bld) [#/Vol] 2.16 10*3/uL Normal 1.00-4.00 [facility] Comment on above: Order Comment: Speci men Type: BLOOD SPECIMENOrdering Facility: [facility] Address: [address] [place] [address] Performed By: #### 5 7021-8, 87822-7 ####[facility] LABCLIA [id number] [place] [address] Lymphocytes/100 WBC (Bld) 23.7 % Normal [facility] Comment on above: Order Comment: Speci men Type: BLOOD SPECIMENOrdering Facility: [facility] Address: [address] [place], [place] [address] Performed By: #### 5 7021-8, 18057-6 ####[facility] LABCLIA [id number] [place] [address] MCH (RBC) [Entitic mass] 30.4 pg Normal 26.0-34.0 [facility] Comment on above: Order Comment: Speci men Type: BLOOD SPECIMENOrdering Facility: [facility] Address: [address] [place] [address] Performed By: #### 5 7021-8, 01939-4 ####[facility] LABCLIA [id number] [place] [address] MCHC (RBC) [Mass/Vol] 33.8 g/dL Normal 30.5-36.0 [facility] Comment on above: Order Comment: Speci men Type: BLOOD SPECIMENOrdering Facility: [facility] Address: [address] [place] [address] Performed By: #### 5 7021-8, 16763-8 ####[facility] LABIA [id number] [place] [address] MCV (RBC) [Entitic vol] 90.1 fL Normal 80.0-100.0 [facility] Comment on above: Order Comment: Speci men Type: BLOOD SPECIMENOrdering Facility: [facility] Address: [address] [place] [address] Performed By: #### 5 7021-8, 09450-7 ####[facility] LABCLIA [id number] [place] [address] Monocytes (Bld) [#/Vol] 0.63 10*3/uL Normal <0.87 [facility] Comment on above: Order Comment: Speci men Type: BLOOD SPECIMENOrdering Facility: [facility] Address: [address] [place] [address] Performed By: #### 5 7021-8, 96502-6 ####[facility] LABCLIA [id number] [place] [address] Monocytes/100 WBC (Bld) 6.9 % Normal [facility] Comment on above: Order Comment: Speci men Type: BLOOD SPECIMENOrdering Facility: [facility] Address: [address] [place] [address] Performed By: #### 5 7021-8, 60910-6 ####[facility] LABCLIA [id number] [place] [address] Neutrophils (Bld) [#/Vol] 6.03 10*3/uL Normal 1.45-7.50 [facility] Comment on above: Order Comment: Speci men Type: BLOOD SPECIMENOrdering Facility: [facility] Address: [address] [place] [address] Performed By: #### 5 7021-8, 35862-3 ####[facility] LABCLIA [id number] [place] [address] Neutrophils/100 WBC (Bld) 66.0 % Normal [facility] Comment on above: Order Comment: Speci men Type: BLOOD SPECIMENOrdering Facility: [facility] Address: [address] [place] [address] Performed By: #### 5 7021-8, 90343-2 ####[facility] LABCLIA [id number] [place] [address] Nucleated RBC (Bld) [#/Vol] 10*3/uL Normal <0.01 [facility] Comment on above: Order Comment: Speci men Type: BLOOD SPECIMENOrdering Facility: [facility] Address: [address] [place] [address] Performed By: #### 5 7021-8, 82221-4 ####[facility] LABCLIA [id number] [place] [address] Nucleated RBC/100 WBC (Bld) [Ratio] 0.0 /100 WBC Normal [facility] Comment on above: Order Comment: Speci men Type: BLOOD SPECIMENOrdering Facility: [facility] Address: [address] [place], [place] [id number] Performed By: #### 5 7021-8, 99477-2 ####[facility] LABCLIA [id number] [place] [address] Platelet mean volume (Bld) [Entitic vol] 9.5 fL Normal 9.0-12.7 [facility] Comment on above: Order Comment: Speci men Type: BLOOD SPECIMENOrdering Facility: [facility] Address: [address] [place], [place] [id number] Performed By: #### 5 7021-8, 95617-0 ####[facility]HEL[facility] LABIA [id number] [place] [address] Platelets (Bld) [#/Vol] 237 10*3/uL Normal 150-400 [facility] Comment on above: Order Comment: Speci men Type: BLOOD SPECIMENOrdering Facility: [facility] Address: [address] [place] [address] Performed By: #### 5 7021-8, 36780-2 ####[facility] LABIA [id number] [place] [address] RBC (Bld) [#/Vol] 4.44 10*6/uL Normal 3.90-5.20 [facility] Comment on above: Order Comment: Speci men Type: BLOOD SPECIMENOrdering Facility: [facility] Address: [address] [place] [address] Performed By: #### 5 7021-8, 27413-6 ####[facility] LABIA [id number] [place] [address] WBC (Bld) [#/Vol] 9.13 10*3/uL Normal 3.70-11.00 [facility] Comment on above: Order Comment: Speci men Type: BLOOD SPECIMENOrdering Facility: [facility] Address: [address] [place] [address] Performed By: #### 5 7021-8, 31664-1 ####[facility] LABCLIA [id number] [place] [address] Comprehensive metabolic 2000 panelon 07-07-2023 Albumin [Mass/Vol] 4.4 g/dL Normal 3.9-4.9 [facility] Comment on above: Order Comment: Speci men Type: BLOOD SPECIMENOrdering Facility: [facility] Address: [address] [place] [address] Performed By: #### 2 4323-8 ####[facility] LABCLIA [id number] [place] [address] ALP [Catalytic activity/Vol] 117 U/L Normal 34-123 [facility] Comment on above: Order Comment: Speci men Type: BLOOD SPECIMENOrdering Facility: [facility] Address: [address] [place] [address] Performed By: #### 2 4323-8 ####[facility] LABCLIA [id number] [place] [address] ALT [Catalytic activity/Vol] 89 U/L High 7-38 [facility] Comment on above: Order Comment: Speci men Type: BLOOD SPECIMENOrdering Facility: [facility] Address: [address] [place] [address] Performed By: #### 2 4323-8 ####[facility] LABCLIA [id number] [place] [address] Anion gap [Moles/Vol] 12 mmol/L Normal 9-18 [facility] Comment on above: Order Comment: Speci men Type: BLOOD SPECIMENOrdering Facility: [facility] Address: [address] [place] [address] Performed By: #### 2 4323-8 ####[facility] LABCLIA [id number] [place] [address] AST [Catalytic activity/Vol] 87 U/L High 13-35 [facility] Comment on above: Order Comment: Speci men Type: BLOOD SPECIMENOrdering Facility: [facility] Address: [address] [place] [address] Performed By: #### 2 4323-8 ####[facility] LABCLIA [id number] [place] [address] Bilirubin [Mass/Vol] 0.4 mg/dL Normal 0.2-1.3 [facility] Comment on above: Order Comment: Speci men Type: BLOOD SPECIMENOrdering Facility: [facility] Address: [address] [place] [address] Performed By: #### 2 4323-8 ####[facility] LABCLIA [id number] [place] [address] Calcium [Mass/Vol] 9.4 mg/dL Normal 8.5-10.2 [facility] Comment on above: Order Comment: Speci men Type: BLOOD SPECIMENOrdering Facility: [facility] Address: [address] [place] [address] Performed By: #### 2 4323-8 ####[facility] LABCLIA [id number] [place] [address] Chloride [Moles/Vol] 102 mmol/L Normal 97-105 [facility] Comment on above: Order Comment: Speci men Type: BLOOD SPECIMENOrdering Facility: [facility] Address: [address] [place] [address] Performed By: #### 2 4323-8 ####[facility] LABCLIA [id number] [place] [address] CO2 [Moles/Vol] 23 mmol/L Normal 22-30 [facility] Comment on above: Order Comment: Speci men Type: BLOOD SPECIMENOrdering Facility: [facility] Address: [address] [place], [place] [address] Performed By: #### 2 4323-8 ####[facility] LABCLIA [id number] [place] [address] Creatinine [Mass/Vol] 0.81 mg/dL Normal 0.58-0.96 [facility] Comment on above: Order Comment: Joselyn forrest Type: BLOOD SPECIMENOrdering Facility: [facility] Address: [address] [place], [place] [address] Performed By: #### 2 4323-8 ####[facility] LABCLIA [id number] [place] [address] Creatinine and Glomerular filtration rate.predicted panel (S/P/Bld) 84 mL/min/1.73m??? Normal >=60 [facility] Comment on above: Order Comment: Joselyn forrest Type: BLOOD SPECIMENOrdering Facility: [facility] Address: [address] [place] [address] Result Comment: Michaela mated Glomerular Filtration Rate [...] actual GFR. Performed By: #### 2 4323-8 ####[facility] LABCLIA [id number] [place] [address] Glucose [Mass/Vol] 144 mg/dL High 74-99 [facility] Comment on above: Order Comment: Joselyn forrest Type: BLOOD SPECIMENOrdering Facility: [facility] Address: [address] [place], [place] [address] Result Comment: The [place] Diabetes Association (ADA) provides guidance for cutoff [...] Standards of Medical Care in Diabetes 2016, [place] [employer]. Diabetes Care. 2016.39(Suppl 1). Performed By: #### 2 4323-8 ####[facility] LABCLIA [id number] [place] [address] Potassium [Moles/Vol] 4.1 mmol/L Normal 3.7-5.1 [facility] Comment on above: Order Comment: Speci men Type: BLOOD SPECIMENOrdering Facility: [facility] Address: [address] [place] [address] Performed By: #### 2 4323-8 ####[facility] LABCLIA [id number] [place] [address] Protein [Mass/Vol] 7.3 g/dL Normal 6.3-8.0 [facility] Comment on above: Order Comment: Speci men Type: BLOOD SPECIMENOrdering Facility: [facility] Address: [address] [place] [address] Performed By: #### 2 4323-8 ####[facility] LABCLIA [id number] [place] [address] Sodium [Moles/Vol] 137 mmol/L Normal 136-144 [facility] Comment on above: Order Comment: Speci men Type: BLOOD SPECIMENOrdering Facility: [facility] Address: [address] [place] [address] Performed By: #### 2 4323-8 ####[facility] LABCLIA [id number] [place] [address] Urea nitrogen [Mass/Vol] 15 mg/dL Normal 7-21 [facility] Comment on above: Order Comment: Speci men Type: BLOOD SPECIMENOrdering Facility: [facility] Address: [address] [place] [address] Performed By: #### 2 4323-8 ####[facility] LABCLIA [id number] [place] [address] Eosinophils/100 WBC Auto (Bl d)on 07-07-2023 Eosinophils/100 WBC (Bld) 2.4 % [facility] Erythrocyte distribution wid th Auto (RBC) [Ratio]on 07-07-2023 Erythrocyte distribution width (RBC) [Ratio] 12.9 % 11.5-15.0 [facility] Ferritin SerPl-mCncon 2023 Ferritin [Mass/Vol] 267.0 ng/mL High 14.7-205.1 [facility] Comment on above: Order Comment: Speci men Type: BLOOD SPECIMENOrdering Facility: [facility] Address: [address] [place] [address] Performed By: #### 5 0190-8, 9, 2275-08, 2283-12 ####[facility] LABCLIA [id number] [place] [address] [place] Folate SerPl-ncon 07-07-19 Folate [Mass/Vol] 10.1 ng/mL Normal >4.7 [facility] Comment on above: Order Comment: Speci men Type: BLOOD SPECIMENOrdering Facility: [facility] Address: [address] [place] [address] Performed By: #### 5 0190-8, 9, 2275-08, 2283-12 ####[facility] LABCLIA [id number] [place] [address] [place] Hematocrit Auto (Bld) [Volum e fraction]on 07-07-2023 Hematocrit (Bld) [Volume fraction] 40.0 % 36.0-46.0 [facility] Hemoglobin [Mass/volume] in Bloodon 07-07-2023 Hemoglobin (Bld) [Mass/Vol] 13.5 g/dL 11.5-15.5 [facility] Iron and Iron binding capaci ty panelon 07-07-2023 Iron [Mass/Vol] 59 ug/dL Normal 41-186 [facility] Comment on above: Order Comment: Speci men Type: BLOOD SPECIMENOrdering Facility: [facility] Address: [address] [place], [place] [address] Performed By: #### 5 0190-8, 9, 2275-08, 2283-12 ####[facility] LABCLIA [id number] [address] [address] [place] Iron binding capacity [Mass/Vol] 351 ug/dL Normal 232-386 [facility] Comment on above: Order Comment: Speci men Type: BLOOD SPECIMENOrdering Facility: [facility] Address: [address] [place], [place] [address] Performed By: #### 5 0190-8, 9, 2275-08, 2283-12 ####[facility] LABCLIA [id number] [place] [address] [place] Iron/TIBC [Molar ratio] 16.8 % Normal 15.0-57.0 [facility] Comment on above: Order Comment: Speci men Type: BLOOD SPECIMENOrdering Facility: [facility] Address: [address] [place] [address] Performed By: #### 5 0190-8, 9, 2275-08, 2283-12 ####[facility] LABCLIA [id number] [place] [address] [place] Iron binding capacity [Mass/ volume] in Serum or Plasmaon 07-07-2023 Iron binding capacity [Mass/Vol] 351 ug/dL 232-386 [facility] Iron saturation [Mass Fracti on] in Serum or Plasmaon 07-07-2023 Iron saturation [Mass fraction] 16.8 % 15.0-57.0 [facility] Laboratory - Chemistry and C hemistry - challengeon 07-07-2023 Albumin [Mass/Vol] 4.4 g/dL 3.9-4.9 [facility] ALP [Catalytic activity/Vol] 117 U/L 34-123 [facility] ALT [Catalytic activity/Vol] 89 U/L 7-38 [facility] AST [Catalytic activity/Vol] 87 U/L 13-35 [facility] Bilirubin [Mass/Vol] 0.4 mg/dL 0.2-1.3 [facility] Calcium [Mass/Vol] 9.4 mg/dL 8.5-10.2 [facility] Chloride [Moles/Vol] 102 mmol/L 97-105 [facility] CO2 [Moles/Vol] 23 mmol/L 22-30 [facility] Cobalamin (Vitamin B12) [Mass/Vol] 599 pg/mL 232-1245 [facility] Creatinine [Mass/Vol] 0.81 mg/dL 0.58-0.96 [facility] Ferritin [Mass/Vol] 267.0 ng/mL 14.7-205.1 [facility] Glucose [Mass/Vol] 144 mg/dL 74-99 [facility] Comment on above: The [place] Diabete s Association (ADA) provides guidance for [...] Standards of Medical Care in Diabetes 2016, [place] Diabetes [employer]. Diabetes Care. 2016.39(Suppl 1). Iron [Mass/Vol] 59 ug/dL 41-186 [facility] Potassium [Moles/Vol] 4.1 mmol/L 3.7-5.1 [facility] Protein [Mass/Vol] 7.3 g/dL 6.3-8.0 [facility] Sodium [Moles/Vol] 137 mmol/L 136-144 [facility] Urea nitrogen [Mass/Vol] 15 mg/dL 7-21 [facility] - Hematology and Cell countson 07-07-2023 Eosinophils (Bld) [#/Vol] 0.22 10*3/uL <0.46 [facility] Immature granulocytes/100 WBC (Bld) 0.2 % [facility] Leukocytes [#/volume] correc ifrah for nucleated erythrocytes in Blood by Automated counon 07-07-2023 WBC corrected for nucl RBC Auto (Bld) [#/Vol] 9.13 k/uL 3.70-11.00 [facility] Lymphocytes Auto (Bld) [#/Vo l]on 07-07-2023 Lymphocytes (Bld) [#/Vol] 2.16 10*3/uL 1.00-4.00 [facility] Lymphocytes/100 WBC Auto (Bl d)on 07-07-2023 Lymphocytes/100 WBC (Bld) 23.7 % [facility] MCH Auto (RBC) [Entitic mass ]on 07-07-2023 MCH (RBC) [Entitic mass] 30.4 pg 26.0-34.0 [facility] MCHC Auto (RBC) [Mass/Vol]on 07-07-2023 MCHC (RBC) [Mass/Vol] 33.8 g/dL 30.5-36.0 [facility] MCV Auto (RBC) [Entitic vol] on 07-07-2023 MCV (RBC) [Entitic vol] 90.1 fL 80.0-100.0 [facility] Monocytes Auto (Bld) [#/Vol] on 07-07-2023 Monocytes (Bld) [#/Vol] 0.63 10*3/uL <0.87 [facility] Monocytes/100 WBC Auto (Bld) on 07-07-2023 Monocytes/100 WBC (Bld) 6.9 % [facility] Neutrophils Auto (Bld) [#/Vo l]on 07-07-2023 Neutrophils (Bld) [#/Vol] 6.03 10*3/uL 1.45-7.50 [facility] Neutrophils/100 WBC Auto (Bl d)on 07-07-2023 Neutrophils/100 WBC (Bld) 66.0 % [facility] No Panel Informationon 07-07 Estimated GFR (CKD-EPI) 84 mL/min/1.73m??? >=60 [facility] Comment on above: Estimated Glomerular Filtration Rate [...] reflect actual GFR. Folate 10.1 ng/mL >4.7 [facility] Immature Granulocyte # (Auto) <0.03 k/uL <0.10 [facility] Nucleated RBC Auto (Bld) [#/ Vol]on 07-07-2023 Nucleated RBC (Bld) [#/Vol] 10*3/uL <0.01 [facility] Nucleated erythrocytes [Pres ence] in Blood by Automated counton 07-07-2023 Nucleated RBC Auto Ql (Bld) 0.0 /100{WBC} [facility] Platelet mean volume Auto (B ld) [Entitic vol]on 07-07-2023 Platelet mean volume (Bld) [Entitic vol] 9.5 fL 9.0-12.7 [facility] Platelets Auto (Bld) [#/Vol] on 07-07-2023 Platelets (Bld) [#/Vol] 237 10*3/uL 150-400 [facility] RBC Auto (Bld) [#/Vol]on RBC (Bld) [#/Vol] 4.44 10*6/uL 3.90-5.20 [facility] Retics #on 07-07-2023 Reticulocytes (Bld) [#/Vol] 0.35849 10*3/uL Normal 0.018-0.10 0 [facility] Comment on above: Order Comment: Speci men Type: BLOOD SPECIMENOrdering Facility: [facility] Address: [address] [place] [address] Performed By: #### 5 7021-8, 91979-6 ####[facility] LABCLIA [id number] [place] [address] Reticulocytes (Bld) [#/Vol]o n 07-07-2023 Reticulocytes/100 RBC (Bld) 1.4 % Normal 0.4-2.0 [facility] Comment on above: Order Comment: Speci men Type: BLOOD SPECIMENOrdering Facility: [facility] Address: [address] [place] [address] Performed By: #### 5 7021-8, 74854-9 ####[facility] LABCLIA [id number] [place] [address] Reticulocytes/100 RBC Auto ( Bld)on 07-07-2023 Reticulocytes/100 RBC (Bld) 1.4 % 0.4-2.0 [facility] Serum or plasma anion gap de terminationon 07-07-2023 Anion gap [Moles/Vol] 12 mmol/L 9-18 [facility] Vit B12 SerPl-mCncon 024 Cobalamin (Vitamin B12) [Mass/Vol] 599 pg/mL Normal 232-1245 [facility] Comment on above: Order Comment: Speci men Type: BLOOD SPECIMENOrdering Facility: [facility] Address: [address] [place], [place] [address] [id number] Performed By: #### 5 0190-8, 2132-9, 2276-4, 2284-8 ####[facility] LABCLIA [id number] [place] [id number] [place] Activated partial thrombopla stin time (aPTT) in platelet poor plasma by coagulation aOrdered By: Haresh Middleton on 07-06-2023 aPTT Coag (PPP) [Time] 27.3 s 25.1-36.5 [facility] Comment on above: A hematocrit value g reater than 55% may lead to inaccurate results in coagulation testing. Patients having hematocrit values >55% require a special collection tube for coagulation studies. Please contact the laboratory at [phone] for redraw instructions. Automated basophil %Ordered By: Haresh Middleton on 07-06-2023 Basophils/100 WBC (Bld) 0.6 % Normal . [facility] Comment on above: Performed By: #### L YTES, LIPID, CBC, BUN, PP, CREAT #### [address] Automated basophil countOrde red By: Haresh Emi on 07-06-2023 Basophils (Bld) [#/Vol] 0.1 10*3/uL Normal 0.0-0.2 [facility] Comment on above: Result Comment: PERF ORMED BY: [place] [address] PATHOLOGIST [employer] DIRECTOR NHI ARNOLD M.D. Performed By: #### L YTES, LIPID, CBC, BUN, PP, CREAT #### [address] Automated blood monocyte cou ntOrdered By: Haresh Middleton on 07-06-2023 Monocytes (Bld) [#/Vol] 0.8 10*3/uL Normal 0.0-0.8 [facility] Comment on above: Performed By: #### L YTES, LIPID, CBC, BUN, PP, CREAT #### [address] Automated eosinophil %Ordere d By: Haresh Middleton on 07-06-2023 Eosinophils/100 WBC (Bld) 2.3 % Normal . [facility] Comment on above: Performed By: #### L YTES, LIPID, CBC, BUN, PP, CREAT #### [address] Automated eosinophil countOr dered By: Haresh Middleton on 07-06-2023 Eosinophils (Bld) [#/Vol] 0.2 10*3/uL Normal 0.0-0.45 [facility] Comment on above: Performed By: #### L YTES, LIPID, CBC, BUN, PP, CREAT #### [address] Automated monocyte %Ordered By: Haresh Middleton on 07-06-2023 Monocytes/100 WBC (Bld) 9.6 % Normal . [facility] Comment on above: Performed By: #### L YTES, LIPID, CBC, BUN, PP, CREAT #### [address] [place] [address] [place] Automated neutrophil %Ordere d By: Haresh Middleton on 07-06-2023 Neutrophils/100 WBC (Bld) 59.4 % Normal . [facility] Comment on above: Performed By: #### L YTES, LIPID, CBC, BUN, PP, CREAT #### [facility] [address] [place] [address] [place] Carbon dioxide, total [Moles /volume] in Serum or PlasmaOrdered By: Haresh Middleton on 07-06-2023 CO2 [Moles/Vol] 26.2 mmol/L Normal 21.0-31.0 [facility] Comment on above: Performed By: #### L YTES, LIPID, CBC, BUN, PP, CREAT #### [facility] [address] [place] [address] [place] Chloride [Moles/volume] in S chris or PlasmaOrdered By: Haresh Middleton on 07-06-2023 Chloride [Moles/Vol] 105 mmol/L Normal 98-107 [facility] Comment on above: Performed By: #### L YTES, LIPID, CBC, BUN, PP, CREAT #### [facility] [address] [place] [address] [place] Cholesterol [Mass/volume] in Serum or PlasmaOrdered By: Haresh Middleton on 07-06-2023 Cholesterol [Mass/Vol] 134 mg/dL Low 140-200 [facility] Comment on above: Chol less than 200 m g/dl low riskChol 201-239 mg/dl borderline riskChol 240 mg/dl and greater high risk Result Comment: Chol less than 200 mg/dl low risk Chol 201-239 mg/dl borderline risk Chol 240 mg/dl and greater high risk Performed By: #### L YTES, LIPID, CBC, BUN, PP, CREAT ####[facility] [address] [place] [address] [place] Cholesterol in LDL Calc [Mas s/Vol]Ordered By: Haresh Middleton on 07-06-2023 Cholesterol in LDL [Mass/Vol] 75 mg/dL 0-100 [facility] Comment on above: LDL ATP III CLASSIFI CATIONLDL less than 100 mg/dL OptimalLDL 100-129 mg/dL Near or above optimalLDL 130-159 mg/dL Borderline highLDL 160-189 mg/dL HighLDL greater than 189 mg/dL Very high Cholesterol in VLDL Calc [Ma ss/Vol]Ordered By: Haresh Middleton on 07-06-2023 Cholesterol in VLDL [Mass/Vol] 27 mg/dL [facility] Coagulation Profileon 2023 aPTT Coag (Bld) [Time] 27.3 s Normal 25.1-36.5 [facility] Comment on above: Result Comment: A he matocrit value greater than 55% may lead to inaccurate results in coagulation testing. Patients having hematocrit values >55% require a special collection tube for coagulation studies. Please contact the laboratory at [phone] for redraw instructions. PERFORMED BY: [place] [address] PATHOLOGIST [employer] DIRECTOR NHI ARNOLD M.D. Performed By: #### L YTES, LIPID, CBC, BUN, PP, CREAT #### [address] Complete Blood Count Auto Di ffon 07-06-2023 Mean Corpuscular HGB Conc 34.0 g/dL Normal 32.0-35.0 [facility] Comment on above: Performed By: #### L YTES, LIPID, CBC, BUN, PP, CREAT #### [address] NRBC% 0.1 /100{WBC} Normal 0-0.5 [facility] Comment on above: Performed By: #### L YTES, LIPID, CBC, BUN, PP, CREAT #### [facility] [address] Creatinineon 07-06-2023 GFR/1.73 sq M.predicted MDRD (S/P/Bld) [Vol rate/Area] mL/min/{1.73_m2} Normal [facility] Comment on above: Performed By: #### L YTES, LIPID, CBC, BUN, PP, CREAT ####[place] [address] [place] [id number] [facility] Creatinine [Mass/volume] in Serum or PlasmaOrdered By: Haresh Middleton on 07-06-2023 Creatinine [Mass/Vol] 0.76 mg/dL Normal 0.60-1.20 [facility] Comment on above: Performed By: #### L YTES, LIPID, CBC, BUN, PP, CREAT ####[place] [id number] [place] [id number] [facility] ECG 12 lead ECGon 07-06-2023 ECG 12 lead ECG [facility] [address] [place] [address] Electrocardiograph Report Signed Patient: Jeannette Hurtado MR#: [id number] : 1965 Acct:[id number] Age/Sex: 57 / F ADM Date: 07/06/23 Loc: Room: Type: [facility] Attending Dr: Haresh Middleton MD Ordering Provider: Haresh Middleton MD Date of Service: 07/06/23 ECG/ECG 12 lead ECG: PST for [facility] Copies to: Test Reason : Blood [...] previous ECGs available Confirmed by GUZMAN DUPREE [facility] ([id number]) on 07/06/2023 5:49:35 PM Referred By: EMI Electronically Signed By:CLAUDIA MURCIA MD [facility] Transcribed By: [facility] Signed By Clayton Murcia MD 07/06/23 6809 Normal [facility] Erythrocyte distribution wid th [Ratio] by Automated countOrdered By: Haresh Middleton on 07-06-2023 Erythrocyte distribution width (RBC) [Ratio] 13.3 % Normal 11.9-15.3 [facility] Comment on above: Performed By: #### L YTES, LIPID, CBC, BUN, PP, CREAT #### [facility] [address] Erythrocytes [#/volume] in B lood by Automated countOrdered By: Haresh Middleton on 07-06-2023 RBC (Bld) [#/Vol] 4.31 10*6/uL Normal 3.60-5.00 [facility] Comment on above: Performed By: #### L YTES, LIPID, CBC, BUN, PP, CREAT #### [address] Hematocrit [Volume Fraction] of Blood by Automated countOrdered By: Haresh Middleton on 07-06-2023 Hematocrit (Bld) [Volume fraction] 38.7 % Normal 34.0-46.4 [facility] Comment on above: Performed By: #### L YTES, LIPID, CBC, BUN, PP, CREAT #### [address] Hemoglobin [Mass/volume] in BloodOrdered By: Haresh Middleton on 07-06-2023 Hemoglobin (Bld) [Mass/Vol] 13.2 g/dL Normal 11.8-15.4 [facility] Comment on above: Performed By: #### L YTES, LIPID, CBC, BUN, PP, CREAT #### [address] INR in Platelet poor plasma by Coagulation assayOrdered By: Haresh Middleton on 07-06-2023 INR Coag (PPP) [Relative time] 1.0 {INR} Normal [facility] Comment on above: INR Therapeutic Rang e [...] YTES, LIPID, CBC, BUN, PP, CREAT #### [facility] [address] Leukocytes [#/volume] correc ifrah for nucleated erythrocytes in Blood by Automated counOrdered By: Haresh Middleton on 07-06-2023 WBC corrected for nucl RBC Auto (Bld) [#/Vol] 8.1 10*3/uL 3.8-11.6 [facility] Leukocytes [#/volume] in Blo od by Automated countOrdered By: Haresh Middleton on 07-06-2023 WBC (Bld) [#/Vol] 8.1 10*3/uL Normal 3.8-11.6 [facility] Comment on above: Performed By: #### L YTES, LIPID, CBC, BUN, PP, CREAT #### [facility] [address] Lipid Panelon 07-06-2023 LDL Cholesterol,Calculate d 75 mg/dL Normal 0-100 [facility] Comment on above: Result Comment: LDL ATP III CLASSIFICATION LDL less than 100 mg/dL Optimal LDL 100-129 mg/dL Near or above optimal LDL 130-159 mg/dL Borderline high LDL 160-189 mg/dL High LDL greater than 189 mg/dL Very high Performed By: #### L YTES, LIPID, CBC, BUN, PP, CREAT ####[facility] Triglyceride w/Reflex 138 mg/dL Normal 0-149 [facility] Comment on above: Result Comment: TRIG ATP III CLASSIFICATION TRIG less than 150 mg/dL Normal TRIG 150-199 mg/dL Borderline high TRIG 200-500 mg/dL High TRIG greater than 500 mg/dL Very high Standard traceable to the Center for Disease Conrtrol and Prevention (CDC) test method. Performed By: #### L YTES, LIPID, CBC, BUN, PP, CREAT ####[facility] VLDL CHOLESTEROL 27 mg/dL Normal [facility] Comment on above: Performed By: #### L YTES, LIPID, CBC, BUN, PP, CREAT ####[facility] [id number] Lymphocytes [#/volume] in Bl ood by Automated countOrdered By: Haresh Middleton on 07-06-2023 Lymphocytes (Bld) [#/Vol] 2.3 10*3/uL Normal 1.00-4.8 [facility] Comment on above: Performed By: #### L YTES, LIPID, CBC, BUN, PP, CREAT #### [facility] [address] Lymphocytes/100 leukocytes i n Blood by Automated countOrdered By: Haresh Middleton on 07-06-2023 Lymphocytes/100 WBC (Bld) 28.1 % Normal . [facility] Comment on above: Performed By: #### L YTES, LIPID, CBC, BUN, PP, CREAT #### [address] MCH [Entitic mass] by Automa ifrah countOrdered By: Haresh Middleton on 07-06-2023 MCH (RBC) [Entitic mass] 30.6 pg Normal 24.7-34.3 [facility] Comment on above: Performed By: #### L YTES, LIPID, CBC, BUN, PP, CREAT #### [facility] [address] [place] [address] MCHC Auto (RBC) [Mass/Vol]Or dered By: Haresh Middleton on 07-06-2023 MCHC (RBC) [Mass/Vol] 34.0 g/dL 32.0-35.0 [facility] MCV [Entitic volume] by Auto mated countOrdered By: Haresh Middleton on 07-06-2023 MCV (RBC) [Entitic vol] 89.9 fL Normal 80-100 [facility] Comment on above: Performed By: #### L YTES, LIPID, CBC, BUN, PP, CREAT #### [address] Neutrophils [#/volume] in Bl ood by Automated countOrdered By: Haresh Middleton on 07-06-2023 Neutrophils (Bld) [#/Vol] 4.8 10*3/uL Normal 1.8-7.7 [facility] Comment on above: Performed By: #### L YTES, LIPID, CBC, BUN, PP, CREAT #### [facility] [address] [place] [address] No Panel InformationOrdered By: Haresh Middleton on 07-06-2023 Estimated GFR (CKD-EPI) > 60.0 mL/Min [facility] Creatinine Clearance (Chem N/A [facility] Nucleated erythrocytes [Pres ence] in Blood by Automated countOrdered By: Haresh Middleton on 07-06-2023 Nucleated RBC Auto Ql (Bld) 0.1 /100{WBC} 0-0.5 [facility] Platelet mean volume [Entiti c volume] in Blood by Automated countOrdered By: Haresh Middleton on 07-06-2023 Platelet mean volume (Bld) [Entitic vol] 7.8 fL Normal 6.3-10.7 [facility] Comment on above: Performed By: #### L YTES, LIPID, CBC, BUN, PP, CREAT #### [facility] [address] [place] [address] Platelets [#/volume] in Bloo d by Automated countOrdered By: Haresh Middleton on 07-06-2023 Platelets (Bld) [#/Vol] 224 10*3/uL Normal 150-450 [facility] Comment on above: Performed By: #### L YTES, LIPID, CBC, BUN, PP, CREAT #### [facility] [address] [place] [address] [place] Potassium [Moles/volume] in Serum or PlasmaOrdered By: Haresh Middleton on 07-06-2023 Potassium [Moles/Vol] 4.3 mmol/L Normal 3.5-5.1 [facility] Comment on above: Performed By: #### L YTES, LIPID, CBC, BUN, PP, CREAT #### [facility] [address] [place] [address] Prothrombin time (PT)Ordered By: Haresh Middleton on 07-06-2023 PT Coag (PPP) [Time] 11.3 s Normal 9.0-12.9 [facility] Comment on above: A hematocrit value g reater than 55% may lead to inaccurate results in coagulation testing. Patients having hematocrit values >55% require a special collection tube for coagulation studies. Please contact the laboratory at [phone] for redraw instructions. Result Comment: A he matocrit value greater than 55% may lead to inaccurate results in coagulation testing. Patients having hematocrit values >55% require a special collection tube for coagulation studies. Please contact the laboratory at [phone] for redraw instructions. Performed By: #### L YTES, LIPID, CBC, BUN, PP, CREAT #### [address] Serum or plasma anion gap de terminationOrdered By: Haresh Middleton on 07-06-2023 Anion gap [Moles/Vol] 12.1 mmol/L Normal 6.0-15.0 [facility] Comment on above: Performed By: #### L YTES, LIPID, CBC, BUN, PP, CREAT #### [facility] [address] [place] [address] Serum or plasma high density lipoprotein (HDL) cholesterol measurementOrdered By: Haresh Middleton on 07-06-2023 Cholesterol in HDL [Mass/Vol] 31 mg/dL Normal 23-92 [facility] Comment on above: HDL CHOL ATP-III CLA SSIFICATION Cardiovascular RiskHDL > or equal to 60 mg/dL LOWHDL < 40 mg/dL HIGH Result Comment: HDL CHOL ATP-III CLASSIFICATION Cardiovascular Risk HDL > or equal to 60 mg/dL LOW HDL < 40 mg/dL HIGH Performed By: #### L YTES, LIPID, CBC, BUN, PP, CREAT ####[facility] [id number] [address] Serum or plasma total choles terol/high density lipoprotein (HDL) cholesterol mass ratOrdered By: Haresh Middleton on 07-06-2023 Cholesterol.total/Cho lesterol in HDL [Mass ratio] 4.3 {ratio} Normal <5.0 [facility] Comment on above: Result Comment: PERF ORMED BY: [place] [address] PATHOLOGIST [employer] DIRECTOR NHI ARNOLD M.D. Performed By: #### L YTES, LIPID, CBC, BUN, PP, CREAT ####[facility] [id number] Sodium [Moles/volume] in Ser um or PlasmaOrdered By: Haresh Middleton on 07-06-2023 Sodium [Moles/Vol] 139 mmol/L Normal 136-145 [facility] Comment on above: Performed By: #### L YTES, LIPID, CBC, BUN, PP, CREAT #### [facility] [address] Triglyceride [Mass/volume] i n Serum or PlasmaOrdered By: Haresh Middleton on 07-06-2023 Triglyceride [Mass/Vol] 138 mg/dL 0-149 [facility] Comment on above: TRIG ATP III CLASSIF ICATIONTRIG less than 150 mg/dL NormalTRIG 150-199 mg/dL Borderline highTRIG 200-500 mg/dL High TRIG greater than 500 mg/dL Very highStandard traceable to the Center for Disease Conrtrol and Prevention (CDC) test method. Urea nitrogen [Mass/volume] in Serum or PlasmaOrdered By: Haresh Middleton on 07-06-2023 Urea nitrogen [Mass/Vol] 14 mg/dL Normal 7-25 [facility] Comment on above: Performed By: #### L YTES, LIPID, CBC, BUN, PP, CREAT #### [facility] [address] [place] [address] [place] NM talha perf SPECT rest stron 06-21-2023 NM talha perf SPECT rest str [facility] [address] [place] [address] Nuclear Medicine Report Signed Patient: Jeannette Hurtado MR#: [id number] : 1965 Acct:[id number] Age/Sex: 57 / F ADM Date: 06/17/23 Loc: EL Room: Type: [facility] CLI Attending Dr: Haresh Middleton MD Copies to: [...] available for comparison. Transcribed By: ОЛЬГА 06/22/23 0650 Dictated By: Wander Sam MD 06/21/23 191 Signed By: 06/22/23 1727 Normal [facility] echo transthoracicon [facility] echo transthoracic [facility] [place] [address] Echocardiogram Signed Patient: Jeannette Hurtado MR#: [id number] : 1965 Acct:[id number] Age/Sex: 57 / F ADM Date: 05/13/23 Loc: EL Room: Type: [facility] CLI Attending Dr: Haresh Middleton MD Ordering Provider: Haresh Middleton MD Date of Service: 05/13/23 [facility] echo transthoracic: Palpitations Copies to: MD Maldonado [...] Maldonado Raza MD 05/13/23 1312 Normal [facility] Thyrotropin [Units/volume] i n Serum or PlasmaOrdered By: Haresh Middleton on 05-13-2023 TSH Qn 4.12 m[IU]/L Normal 0.45-5.33 [facility] Comment on above: Order Comment: Reaso n for Exam Chronic fatigue disorder Result Comment: PERF ORMED BY: [facility] [address] [place] [address] PATHOLOGIST [employer] DIRECTOR NHI ARNOLD M.D. Performed By: #### T 4F, TSH3 ####[place] [place] [address] [facility] Thyroxine (T4) free [Mass/vo lume] in Serum or PlasmaOrdered By: Haresh Middleton on 05-13-2023 Free T4 [Mass/Vol] 0.79 ng/dL Normal 0.61-1.12 [facility] Comment on above: Order Comment: Reaso n for Exam Chronic fatigue disorder Performed By: #### T 4F, TSH3 ####[place] [id number] [facility] No Panel Informationon 02-18 [facility] CBC W Auto Differential pane l (Bld)on 01-27-2023 Basophils (Bld) [#/Vol] 0.05 10*3/uL <0.11 k/uL [facility] Basophils/100 WBC (Bld) 0.7 % [facility] Differential cell count method Nom (Bld) Auto [facility] Eosinophils (Bld) [#/Vol] 0.32 10*3/uL <0.46 k/uL [facility] Eosinophils/100 WBC (Bld) 4.5 % [facility] Erythrocyte distribution width (RBC) [Ratio] 14.9 % 11.5 - 15.0 % [facility] Hematocrit (Bld) [Volume fraction] 34.4 % Low 36.0 - 46.0 % [facility] Hemoglobin (Bld) [Mass/Vol] 10.8 g/dL Low 11.5 - 15.5 g/dL [facility] Immature granulocytes (Bld) [#/Vol] <0.10 k/uL [facility] Immature granulocytes/100 WBC (Bld) 0.1 % [facility] Lymphocytes (Bld) [#/Vol] 2.09 10*3/uL 1.00 - 4.00 k/uL [facility] Lymphocytes/100 WBC (Bld) 29.7 % [facility] MCH (RBC) [Entitic mass] 26.3 pg 26.0 - 34.0 pg [facility] MCHC (RBC) [Mass/Vol] 31.4 g/dL 30.5 - 36.0 g/dL [facility] MCV (RBC) [Entitic vol] 83.9 fL 80.0 - 100.0 fL [facility] Monocytes (Bld) [#/Vol] 0.73 10*3/uL <0.87 k/uL [facility] Monocytes/100 WBC (Bld) 10.4 % [facility] Neutrophils (Bld) [#/Vol] 3.84 10*3/uL 1.45 - 7.50 k/uL [facility] Neutrophils/100 WBC (Bld) 54.6 % [facility] Nucleated RBC (Bld) [#/Vol] <0.01 k/uL [facility] Nucleated RBC/100 WBC (Bld) [Ratio] 0.0 /100 WBC [facility] Platelet mean volume (Bld) [Entitic vol] 9.8 fL 9.0 - 12.7 fL [facility] Platelets (Bld) [#/Vol] 203 10*3/uL 150 - 400 k/uL [facility] RBC (Bld) [#/Vol] 4.10 10*6/uL 3.90 - 5.20 m/uL [facility] WBC (Bld) [#/Vol] 7.04 10*3/uL 3.70 - 11.00 k/uL [facility] Comprehensive metabolic 2000 panelon 01-27-2023 Albumin [Mass/Vol] 4.4 g/dL 3.9 - 4.9 g/dL [facility] ALP [Catalytic activity/Vol] 104 U/L 34 - 123 U/L [facility] ALT [Catalytic activity/Vol] 39 U/L High 7 - 38 U/L [facility] Anion gap [Moles/Vol] 11 mmol/L 9 - 18 mmol/L [facility] AST [Catalytic activity/Vol] 46 U/L High 13 - 35 U/L [facility] Bilirubin [Mass/Vol] 0.2 mg/dL 0.2 - 1 .3 mg/dL [facility] Calcium [Mass/Vol] 9.5 mg/dL 8.5 - 10. 2 mg/dL [facility] Chloride [Moles/Vol] 102 mmol/L 97 - 10 5 mmol/L [facility] CO2 [Moles/Vol] 28 mmol/L 22 - 30 mmol/L [facility] Creatinine [Mass/Vol] 0.87 mg/dL 0.58 - 0.96 mg/dL [facility] Estimated Glomerular Filtration Rate 77 mL/min/1.73m >=60 mL/min/1.7 3m [facility] Glucose [Mass/Vol] 133 mg/dL High 74 - 99 mg/dL [facility] Potassium [Moles/Vol] 4.3 mmol/L 3.7 - 5.1 mmol/L [facility] Protein [Mass/Vol] 7.0 g/dL 6.3 - 8.0 g/dL [facility] Sodium [Moles/Vol] 141 mmol/L 136 - 144 mmol/L [facility] Urea nitrogen [Mass/Vol] 18 mg/dL 7 - 21 mg/dL [facility] FERRITIN BLDon 01-27-2023 Ferritin [Mass/Vol] 17.7 ng/mL 14.7 - 205.1 ng/mL [facility] FOLATE SERUMon 01-27-2023 Folate [Mass/Vol] 14.0 ng/mL >4.7 ng/mL [facility] Iron and Iron binding capaci ty panelon 01-27-2023 Iron [Mass/Vol] 31 ug/dL Low 41 - 186 ug/dL [facility] Iron binding capacity [Mass/Vol] 433 ug/dL High 232 - 386 ug/dL [facility] Iron/TIBC [Molar ratio] 7.2 % Low 15.0 - 57.0 % [facility] RETIC COUNTon 01-27-2023 Reticulocytes (Bld) [#/Vol] 0.00641 10*3/uL 0.018 - 0.100 M/uL [facility] Reticulocytes (Bld) [#/Vol]o n 01-27-2023 Reticulocytes/100 RBC (Bld) 1.0 % 0.4 - 2.0 % [facility] VITAMIN B12 BLOODon 01-28-20 Cobalamin (Vitamin B12) [Mass/Vol] 442 pg/mL 232 - 1,245 pg/mL [facility] CBC AUTO DIFFon 08-28-2022 BASO # 0.1 103/ul Normal 0.0-0.1 [facility] Comment on above: Performed By: #### C BC ####[facility] [address] [place] [id number]. Be Matt Basophils/100 WBC (Bld) 1.0 % Normal 0.2-2.0 [facility] Comment on above: Performed By: #### C BC ####[facility] [address] [place], [place] [address]Dr. Be Matt EO # 0.3 103/ul Normal 0.0-0.7 [facility] Comment on above: Performed By: #### C BC ####[facility] [address] [place] [address]Dr. Be Matt Eosinophils/100 WBC (Bld) 3.9 % Normal 0.9-7.0 [facility] Comment on above: Performed By: #### C BC ####[facility] [address] [place], [place] [address]Dr. Be Matt Erythrocyte distribution width (RBC) [Ratio] 14.0 % Normal 11.0-15.0 [facility] Comment on above: Performed By: #### C BC ####[facility] [address] [place], [place] [address]Dr. Be Matt Hematocrit (Bld) [Volume fraction] 35.5 % Critically low 36.0-48.0 [facility] Comment on above: Performed By: #### C BC ####[facility] [address] [place], [place] [address]Dr. Be Matt Hemoglobin (Bld) [Mass/Vol] 11.0 g/dL Critically low 12.0-16.0 [facility] Comment on above: Performed By: #### C BC ####[facility] [address] [place] [id number]. Be Matt IG # 0.01 10e3/ul Normal 0.00-0.03 [facility] Comment on above: Performed By: #### C BC ####[facility] [address] [place] [address]Dr. Be Matt IG % 0.1 % Normal 0.0-0.5 [facility] Comment on above: Performed By: #### C BC ####[facility] [address] [place] [address]Dr. Be Matt LYMPH # 2.2 103/ul Normal 1.2-3.8 [facility] Comment on above: Performed By: #### C BC ####[facility] [address] [place] [address]Dr. Nodamaso Matt Lymphocytes/100 WBC (Bld) 27.9 % Normal 20.5-60.0 [facility] Comment on above: Performed By: #### C BC ####[facility] [address] [place] [address]Dr. Be Matt MANUAL DIFF REQ NO Normal [facility] Comment on above: Performed By: #### C BC ####[facility] [address] [place] [address]Dr. Be Matt MCH (RBC) [Entitic mass] 25.3 pg Critically low 26.7-34.0 [facility] Comment on above: Performed By: #### C BC ####[facility] [address] [place], [place] [address]Dr. Be Matt MCHC (RBC) [Mass/Vol] 31.0 g/dL Normal 29.9-35.2 [facility] Comment on above: Performed By: #### C BC ####[facility] [address] [place] [address]Dr. Be Matt MCV (RBC) [Entitic vol] 81.8 fL Normal 81.0-99.0 [facility] Comment on above: Performed By: #### C BC ####[facility] [address] [place] [id number]. Be Matt MONO # 0.6 103/ul Normal 0.3-0.8 [facility] Comment on above: Performed By: #### C BC ####[facility] [address] [place] [id number]. Be Matt Monocytes/100 WBC (Bld) 7.8 % Normal 1.7-12.0 [facility] Comment on above: Performed By: #### C BC ####[facility] [address] [place] [id number]. Be Matt NEUT # 4.7 103/ul Normal 1.4-6.5 [facility] Comment on above: Performed By: #### C BC ####[facility] [address] [place], [place] [address]Dr. Be Matt Neutrophils/100 WBC (Bld) 59.3 % Normal 43.0-75.0 [facility] Comment on above: Performed By: #### C BC ####[facility] [address] [place], [place] [address]Dr. Be Matt Platelet mean volume (Bld) [Entitic vol] 9.8 fL Normal 9.5-13.5 [facility] Comment on above: Performed By: #### C BC ####[facility] [address] [place], [place] [address]Dr. Be Matt PLT 291 103/ul Normal 150-450 [facility] Comment on above: Performed By: #### C BC ####[facility] [address] [place], [place] [address]Dr. Be Matt RBC 4.34 106/ul Normal 4.20-5.40 [facility] Comment on above: Performed By: #### C BC ####[facility] [address] [place] [address]Dr. Be Matt WBC 8.0 103/ul Normal 4.0-11.0 [facility] Comment on above: Performed By: #### C BC ####[facility] [address] [place], [place] [address]Dr. Be Matt FREE T4on 08-28-2022 Free T4 [Mass/Vol] 0.85 ng/dL Normal 0.76-1.46 [facility] Comment on above: Performed By: #### F T4 #### [facility] [address] [place] [address] [address] Be Matt GLYCOHEMOGLOBIN A1Con 2022 ADA RECOMMENDATION SEE BELOW Normal [facility] Comment on above: Result Comment: ADA RECOMMENDED LIMIT 4.0 - 6.0 ADA THERAPEUTIC TARGET < 7.0 ACTION SUGGESTED > 7.0 Performed By: #### A 1C #### [facility] [address] [address] [address] Be Matt Glucose [Mass/Vol] 143 mg/dL Normal [facility] Comment on above: Performed By: #### A 1C #### [facility] [address] [place] [address] Dr. Be Matt HbA1c (Bld) [Mass fraction] 6.6 % Critically high 4.5-6.2 [facility] Comment on above: Performed By: #### A 1C #### [facility] [address] [address] [address] Be Matt LIPID PROFILEon 08-28-2022 CHOL-HDL RATIO NORM SEE BELOW Normal [facility] Comment on above: Result Comment: 3.3 - 4.4 LOW RISK 4.4 - 7.1 AVERAGE RISK 7.1 - 11.0 MODERATE RISK >11.0 HIGH RISK Performed By: #### T SH, LIPID, CMP #### [facility] [address] [place] [address] [address] Be Matt Cholesterol [Mass/Vol] 198 mg/dL Normal <=200 [facility] Comment on above: Performed By: #### T SH, LIPID, CMP #### [facility] [address] [place] [address] [address] Be Matt Cholesterol in HDL [Mass/Vol] 43 mg/dL Normal 40-60 [facility] Comment on above: Performed By: #### T SH, LIPID, CMP #### [facility] [address] [place] [address] Dr. Be Matt Cholesterol in LDL [Mass/Vol] 108.8 mg/dL Normal [facility] Comment on above: Performed By: #### T BRITTNEY, LIPID, CMP #### [facility] [address] [place] [address] Dr. Be Matt Cholesterol.total/Cho lesterol in HDL [Mass ratio] 4.6 {ratio} Normal [facility] Comment on above: Performed By: #### T BRITTNEY, LIPID, CMP #### [facility] [address] [place] [address] Dr. Be Matt HDL NORMAL > or = 60 mg/dl - LO W CARDIOVASCULAR RISK <40 mg/dl - HIGH CARDIOVASCULAR RISK Normal [facility] Comment on above: Performed By: #### T BRITTNEY, LIPID, CMP #### [facility] [address] [place] [address] Dr. Be Matt LDL CALC NORMAL SEE BELOW Normal [facility] Comment on above: Result Comment: <100 mg/dl OPTIMAL 100 - 129 mg/dl NEAR OR ABOVE OPTIMAL 130 - 159 mg/dl BORDERLINE HIGH 160 - 189 mg/dl HIGH >190 mg/dl VERY HIGH Performed By: #### T BRITTNEY, LIPID, CMP #### [facility] [address] [place] [address] Dr. Be Matt Triglyceride [Mass/Vol] 231 mg/dL Critically high <=150 [facility] Comment on above: Performed By: #### T BRITTNEY, LIPID, CMP #### [facility] [address] [place] [address] Dr. Be Matt VLDL CALC 46.2 mg/dL Normal [facility] Comment on above: Performed By: #### T BRITTNEY, LIPID, CMP #### [facility] [address] [place] [address] Dr. Be Matt PROF 14(COMP METB)on 023 Albumin [Mass/Vol] 3.7 g/dL Normal 3.4-5.0 [facility] Comment on above: Performed By: #### T BRITTNEY, LIPID, CMP #### [facility] [address] [address] [address] Be Matt Albumin/Globulin [Mass ratio] 0.9 {ratio} Normal [facility] Comment on above: Performed By: #### T SH, LIPID, CMP #### [facility] [address] [address] [address] Be Matt ALP [Catalytic activity/Vol] 107 U/L Normal 46-116 [facility] Comment on above: Performed By: #### T SH, LIPID, CMP #### [facility] [address] [address] [address] Be Matt ALT [Catalytic activity/Vol] 48 U/L Normal 14-59 [facility] Comment on above: Performed By: #### T SH, LIPID, CMP #### [facility] [address] [place] [address] Dr. Be Matt Anion gap [Moles/Vol] 13.7 mmol/L Normal [facility] Comment on above: Performed By: #### T BRITTNEY, LIPID, CMP #### [facility] [address] [place] [address] Dr. Be Matt AST [Catalytic activity/Vol] 46 U/L Critically high 15-37 [facility] Comment on above: Performed By: #### T SH, LIPID, CMP #### [facility] [address] [place] [address] Dr. Be Matt Bilirubin [Mass/Vol] 0.3 mg/dL Normal 0.2-1.0 [facility] Comment on above: Performed By: #### T SH, LIPID, CMP #### [facility] Laboratory [address] [place] [address] Dr. Be Matt Calcium [Mass/Vol] 9.6 mg/dL Normal 8.5-10.1 [facility] Comment on above: Performed By: #### T SH, LIPID, CMP #### [facility] Laboratory [address] [place] [address] Dr. Be Matt Chloride [Moles/Vol] 103 mmol/L Normal 98-107 [facility] Comment on above: Performed By: #### T SH, LIPID, CMP #### [facility] Laboratory [address] [address] [address] Be Matt CO2 [Moles/Vol] 27.8 mmol/L Normal 21.0-32.0 [facility] Comment on above: Performed By: #### T SH, LIPID, CMP #### [facility] [address] [address] [address] Be Matt Creatinine [Mass/Vol] 0.91 mg/dL Normal 0.55-1.02 [facility] Comment on above: Performed By: #### T SH, LIPID, CMP #### [facility] [address] [address] [address] Be Matt EGFR-AF HONG KONGER >60 Normal >=60 [facility] Comment on above: Performed By: #### T SH, LIPID, CMP #### [facility] [address] [address] [address] Be Matt EGFR-NON AF [place]ER >60 Normal >=60 [facility] Comment on above: Performed By: #### T SH, LIPID, CMP #### [facility] [address] [address] [address] Be Matt Globulin (S) [Mass/Vol] 4.2 g/dL Normal [facility] Comment on above: Performed By: #### T SH, LIPID, CMP #### [facility] [address] [address] [address] Be Matt Glucose [Mass/Vol] 129 mg/dL Critically high 74-106 [facility] Comment on above: Performed By: #### T SH, LIPID, CMP #### [facility] [address] [address] [address] Be Matt Potassium [Moles/Vol] 4.5 mmol/L Normal 3.5-5.1 [facility] Comment on above: Performed By: #### T SH, LIPID, CMP #### [facility] [address] [address] [address] Be Matt Protein [Mass/Vol] 7.9 g/dL Normal 6.4-8.2 [facility] Comment on above: Performed By: #### T SH, LIPID, CMP #### [facility] [address] [address] [address] Be Matt Sodium [Moles/Vol] 140 mmol/L Normal 136-145 [facility] Comment on above: Performed By: #### T SH, LIPID, CMP #### [facility] [address] [address] [address] Be Matt Urea nitrogen [Mass/Vol] 15.0 mg/dL Normal 7.0-18.0 [facility] Comment on above: Performed By: #### T BRITTNEY, LIPID, CMP #### [facility] [address] [address] [address] Be Matt Urea nitrogen/Creatinine [Mass ratio] 16.5 mg/mg Normal [facility] Comment on above: Performed By: #### T BRITTNEY, LIPID, CMP #### [facility] [address] [address] [address] Be Matt TSHon 08-28-2022 TSH 3.347 uIU/mL Normal 0.358-3.74 0 [facility] Comment on above: Performed By: #### T BRITTNEY, LIPID, CMP #### [facility] [address] [address] [address] Be Matt MG MAMM SCREEN 3D LIZABETH CADon 03-16-2022 MG MAMM SCREEN 3D LIZABETH CAD Patient: JEANNETTE HURTADO Exam Date: 03/16/2022 : 1965 Gender:F Ordering : DR JONAS SANDERS . Admission #: [id number] Family : Order #: [id number] CLICK HERE TO VIEW EXAM RADIOLOGY REPORT [...] Treatments None Family Cancers None LOCATION: [facility] BREAST COMPOSITION: Scattered areas fibroglandular density. [...] MD on 03/17/2022 at 08:20 Normal [facility] CBC AUTO DIFFon 02-17-2022 BASO # 0.1 103/ul Normal 0.0-0.1 [facility] Comment on above: Performed By: #### C BC #### [facility] Laboratory [address] [place] [address] Dr. Be Matt Basophils/100 WBC (Bld) 0.5 % Normal 0.2-2.0 [facility] Comment on above: Performed By: #### C BC #### [facility] [address] [place] [address] Dr. Be Matt EO # 0.3 103/ul Normal 0.0-0.7 [facility] Comment on above: Performed By: #### C BC #### [facility] [address] [place] [address] Dr. Be Matt Eosinophils/100 WBC (Bld) 2.7 % Normal 0.9-7.0 [facility] Comment on above: Performed By: #### C BC #### [facility] [address] [place] [address] Dr. Be Matt Erythrocyte distribution width (RBC) [Ratio] 13.7 % Normal 11.0-15.0 [facility] Comment on above: Performed By: #### C BC #### [facility] [address] [place] [address] Dr. Be Matt Hematocrit (Bld) [Volume fraction] 37.8 % Normal 36.0-48.0 [facility] Comment on above: Performed By: #### C BC #### [facility] [address] [place] [address] Dr. Be Matt Hemoglobin (Bld) [Mass/Vol] 11.7 g/dL Critically low 12.0-16.0 [facility] Comment on above: Performed By: #### C BC #### [facility] [address] [place] [address] Dr. Be Matt IG # 0.03 10e3/ul Normal 0.00-0.03 [facility] Comment on above: Performed By: #### C BC #### [facility] [address] [place] [address] Dr. Be Matt IG % 0.3 % Normal 0.0-0.5 [facility] Comment on above: Performed By: #### C BC #### [facility] [address] [place] [address] Dr. Be Matt LYMPH # 2.6 103/ul Normal 1.2-3.8 [facility] Comment on above: Performed By: #### C BC #### [facility] [address] [place] [address] Dr. Be Matt Lymphocytes/100 WBC (Bld) 23.4 % Normal 20.5-60.0 [facility] Comment on above: Performed By: #### C BC #### [facility] [address] [place] [address] Dr. Be Matt MANUAL DIFF REQ NO Normal [facility] Comment on above: Performed By: #### C BC #### [facility] [address] [place] [address] Dr. Be Matt MCH (RBC) [Entitic mass] 27.4 pg Normal 26.7-34.0 [facility] Comment on above: Performed By: #### C BC #### [facility] [address] [place] [address] Dr. eB Matt MCHC (RBC) [Mass/Vol] 31.0 g/dL Normal 29.9-35.2 [facility] Comment on above: Performed By: #### C BC #### [facility] [address] [place] [address] Dr. Be Matt MCV (RBC) [Entitic vol] 88.5 fL Normal 81.0-99.0 [facility] Comment on above: Performed By: #### C BC #### [facility] [address] [place] [address] Dr. Be Matt MONO # 0.6 103/ul Normal 0.3-0.8 [facility] Comment on above: Performed By: #### C BC #### [facility] [address] [place] [address] Dr. Be Matt Monocytes/100 WBC (Bld) 5.8 % Normal 1.7-12.0 [facility] Comment on above: Performed By: #### C BC #### [facility] [address] [place] [address] Dr. Be Matt NEUT # 7.5 103/ul Critically high 1.4-6.5 [facility] Comment on above: Performed By: #### C BC #### [facility] [address] [place] [address] Dr. Be Matt Neutrophils/100 WBC (Bld) 67.3 % Normal 43.0-75.0 [facility] Comment on above: Performed By: #### C BC #### [facility] [address] [place] [address] Dr. Be Matt Platelet mean volume (Bld) [Entitic vol] 9.9 fL Normal 9.5-13.5 [facility] Comment on above: Performed By: #### C BC #### [facility] [address] [place] [address] Dr. Be Matt PLT 263 103/ul Normal 150-450 [facility] Comment on above: Performed By: #### C BC #### [facility] [address] [place] [address] Dr. Be Matt RBC 4.27 106/ul Normal 4.20-5.40 [facility] Comment on above: Performed By: #### C BC #### [facility] [address] [place] [address] Dr. Be Matt WBC 11.1 103/ul Critically high 4.0-11.0 [facility] Comment on above: Performed By: #### C BC #### [facility] [address] [address] [address] Be Matt GLYCOHEMOGLOBIN A1Con 2021 ADA RECOMMENDATION SEE BELOW Normal [facility] Comment on above: Result Comment: ADA RECOMMENDED LIMIT 4.0 - 6.0 ADA THERAPEUTIC TARGET < 7.0 ACTION SUGGESTED > 7.0 Performed By: #### A 1C ####[facility] [address] [address]Dr. Be Matt Glucose [Mass/Vol] 137 mg/dL Normal [facility] Comment on above: Performed By: #### A 1C ####[facility] [address] [address]Dr. Be Matt HbA1c (Bld) [Mass fraction] 6.4 % Critically high 4.5-6.2 [facility] Comment on above: Performed By: #### A 1C ####[facility] [address] [address]Dr. Be Matt PROF CHEM 8 (BAS METB)on Anion gap [Moles/Vol] 10.0 mmol/L Normal Th [facility] Comment on above: Performed By: #### B MATTY, TSH #### [facility] [address] [address] [address] Be Matt Calcium [Mass/Vol] 8.9 mg/dL Normal 8.5-10.1 [facility] Comment on above: Performed By: #### B MATTY, TSH #### [facility] [address] [address] [address] Be Matt Chloride [Moles/Vol] 103 mmol/L Normal 98-107 [facility] Comment on above: Performed By: #### B MATTY, TSH #### [facility] [address] [place] [address] Dr. Be Matt CO2 [Moles/Vol] 29.1 mmol/L Normal 21.0-32.0 [facility] Comment on above: Performed By: #### B MATTY, TSH #### [facility] [address] [address] [address] Be Matt Creatinine [Mass/Vol] 0.82 mg/dL Normal 0.55-1.02 [facility] Comment on above: Performed By: #### B MP, TSH #### [facility] [address] [place] [address] Dr. Be Matt EGFR-AF [place]ER >60 Normal >=60 [facility] Comment on above: Performed By: #### B MP, TSH #### [facility] [address] [place] [address] Dr. Be Matt EGFR-NON AF [place]ER >60 Normal >=60 [facility] Comment on above: Performed By: #### B MP, TSH #### [facility] [address] [place] [address] Dr. Be Matt Glucose [Mass/Vol] 118 mg/dL Critically high 74-106 [facility] Comment on above: Performed By: #### B MP, TSH #### [facility] [address] [place] [address] Dr. Be Matt Potassium [Moles/Vol] 4.1 mmol/L Normal 3.5-5.1 [facility] Comment on above: Performed By: #### B MP, TSH #### [facility] [address] [place] [address] Dr. Be Matt Sodium [Moles/Vol] 138 mmol/L Normal 136-145 [facility] Comment on above: Performed By: #### B MP, TSH #### [facility] [address] [place] [address] Dr. Be Matt Urea nitrogen [Mass/Vol] 13.0 mg/dL Normal 7.0-18.0 [facility] Comment on above: Performed By: #### B MP, TSH #### [facility] [address] [place] [address] Dr. Be Matt Urea nitrogen/Creatinine [Mass ratio] 15.9 mg/mg Normal [facility] Comment on above: Performed By: #### B MP, TSH #### [facility] [address] [place] [address] Dr. Be Matt TSHon 02-17-2022 TSH 2.473 uIU/mL Normal 0.358-3.74 0 [facility] Comment on above: Performed By: #### B MP, TSH #### [facility] [address] [address] [address] Be Matt PAP ACOG PANEL 2: 30 to 65on 01-01-2022 . . Normal [facility] Comment on above: Result Comment: Perf ormed at: WB Performed By: #### [id number] ####[facility] [address] [address]Dr. Be Matt Age Gdln ACOG Testing 30-65 Normal [facility] Comment on above: Performed By: #### 4 [id number] ####[facility] [address] [address]Dr. Be Matt DIAGNOSIS: Comment Normal [facility] Comment on above: Result Comment: NEGA TIVE FOR INTRAEPITHELIAL LESION OR MALIGNANCY. Performed at: WB Performed By: #### [id number] ####[facility] [address] [address]Dr. Be Matt HPV Aptima Negative Normal Negative [facility] Comment on above: Result Comment: This nucleic acid amplification test detects fourteen high-risk HPV types (16,18,31,33,35,39,45,51,52,56,58,59,66,68) without differentiation. Performed at: =G Performed By: #### [id number] ####[facility] [address] [address]Dr. Be Matt Methodology: Comment Normal [facility] Comment on above: Result Comment: This liquid based ThinPrep(R) pap test was screened with the use of an image guided system. Performed at: WB Performed By: #### 4 [id number] ####[facility] [address] [place], [place] [address]Dr. Be Matt Note: Comment Normal [facility] Comment on above: Result Comment: The Pap smear is a screening test designed to aid in the detection of premalignant and malignant conditions of the uterine cervix. It is not a diagnostic procedure and should not be used as the sole means of detecting cervical cancer. Both false-positive and false-negative reports do occur. . Performed at: WB Performed By: #### [id number] ####[facility] [address] [address]Dr. Be Matt Performed by: Comment [facility] Comment on above: Result Comment: Lynnette Leo, Hse Manager (ASCP) Performed at: WB Performed By: #### [id number] ####[facility] [address] [address]Dr. Be Matt Specimen adequacy: Comment Normal [facility] Comment on above: Result Comment: Sati sfactory for evaluation. Endocervical and/or squamous metaplastic cells (endocervical component) are present. Performed at: WB Performed By: #### 4 [id number] ####[facility] [address] [address]Dr. Be Matt FLUOROSCOPY IN OR/PAIN MGTon 03-04-2020 FLUOROSCOPY [...] File ---- Signed By: Harrison Orantes MD [email or web address] Dictated: 03/04/2020 1:37 PM Signed: 03/04/2020 1:37 PM Reported By: HARRISON ORANTES M.D. Signed By: HARRISON ORANTES M.D. [facility] Molly 03-04-[address] [facility] [place] DATE OF SERVICE: PREOPERATIVE DIAGNOSES: 1. [...] metatarsal dorsiflexion osteotomy. SURGEON: Luther Horowitz MD IMMUNOLOGIST: None. [facility] PATIENT NAME: JEANNETTE HURTADO [address] [facility] [address] Guevara MEDICAL REC #: [id number] [place] [address] ADMIT DATE: DISCHARGE DATE: OPERATIVE REPORT ATTENDING [...] the peroneus brevis appeared to be relatively [facility] PATIENT NAME: JEANNETTE HURTADO [address] [facility] [address] Guevara MEDICAL REC #: [id number] [place] [address] ADMIT DATE: DISCHARGE DATE: OPERATIVE REPORT ATTENDING [...] I distracted the osteotomy using a lamina voice and data technician. I was then able to lateralize and [...] brought down to the peroneus brevis insertion [facility] PATIENT NAME: [facility]AD[facility] [address] [facility] MEDICAL REC #: [id number] [place] [address] ADMIT DATE: DISCHARGE DATE: OPERATIVE REPORT ATTENDING PHY: Luther Horowitz MD and the edges of both tendons roughened. A transfer was performed using the No. 2 FiberTape with several pdrccu-dg-yfskf anastomosis sutures. The remaining peroneus brevis tendon [...] using No. 2 FiberWire suture in a dydku-[id number]-uaid fashion, tightening the retinaculum. I then oversewed [...] plantar fascial incision was also irrigated, injected [facility] PATIENT NAME: JEANNETTE [facility]URTADO [address] [facility] MEDICAL REC #: [id number] [address] [id number] ADMIT DATE: DISCHARGE DATE: OPERATIVE REPORT ATTENDING [...] irrigated, injected with the Exparel mixture, and [facility] PATIENT NAME: JEANNETTE HURTADO [address] [facility] [address] Guevara MEDICAL REC #: [id number] [place] [address] ADMIT DATE: DISCHARGE DATE: OPERATIVE REPORT ATTENDING [...] it clean and dry. Follow up at [facility] in 2 weeks. MEDICATIONS: Patient to resume her preoperative medications. Also, Percocet 5/325 mg p.o. 1 every 6 hours for pain as needed. She will alternate ibuprofen and Tylenol as well to minimize narcotic use. Luther Horowitz MD [facility] PATIENT NAME: JEANNETTE HURTADO [address] [facility] [address] Guevara MEDICAL REC #: [id number] [place] [address] ADMIT DATE: DISCHARGE DATE: OPERATIVE REPORT ATTENDING PHY: Luther Horowitz MD, [id number] SSI File#: [id number] END OF DOCUMENT / CHANGE LOG FOLLOWS Last Edited By Elec. Signed By Luther Horowitz MD, Daniel A MD #CHADA on 03/24/2020 08:02 ET on 03/24/2020 08:02 ET Revision Number - 2 Verified/Reviewed by 03/24/[address] [facility] PATIENT NAME: JEANNETTE HURTADO [address] [facility] [address] Guevara MEDICAL REC #: [id number] [place] [address] ADMIT DATE: DISCHARGE DATE: OPERATIVE REPORT ATTENDING PHY: Luther Horowitz MD [facility] Vital Signs Date Time Vital Sign Value Performing Clinician Facility 04-23-2024 14:37-0500 Body mass index (BMI) [Ratio] 31.01 kg/m2 Pura Nataprawira DO Work Phone: [facility] 04-23-2024 14:37-0500 Body weight 89.81 kg Pura Nataprawira DO Work Phone: [facility] 04-23-2024 14:37-0500 Diastolic blood pressure 78 mm[Hg] Pura Nataprawira DO Work Phone: [facility] 04-23-2024 14:37-0500 Systolic blood pressure 140 mm[Hg] Pura Nataprawira DO Work Phone: [facility] 04-11-2024 10:43-0500 Body mass index (BMI) [Ratio] 31.17 kg/m2 Pura Nataprawira DO Work Phone: [facility] 04-11-2024 10:43-0500 Body weight 90.27 kg Pura Nataprawira DO Work Phone: [facility] 04-11-2024 10:43-0500 Diastolic blood pressure 78 mm[Hg] Pura Nataprawira DO Work Phone: [facility] 04-11-2024 10:43-0500 Systolic blood pressure 146 mm[Hg] Pura Nataprawira DO Work Phone: [facility] 04-10-2024 15:15-0500 Body temperature 98.1 [degF] Chair [place] Work Phone: [facility] 04-10-2024 15:15-0500 Diastolic blood pressure 81 mm[Hg] Chair [place] Work Phone: [facility] 04-10-2024 15:15-0500 Heart rate 77 /min Chair Ani Work Phone: [facility] 04-10-2024 15:15-0500 Respiratory rate 18 /min Chair [place] Work Phone: [facility] 04-10-2024 15:15-0500 SaO2% (BldA) [Mass fraction] 97 % Chair [place] Work Phone: [facility] 04-10-2024 15:15-0500 Systolic blood pressure 143 mm[Hg] Chair [place] Work Phone: [facility] 04-05-2024 15:08-0500 Body temperature 98.01 [degF] Chair [place] Work Phone: [facility] 04-05-2024 15:08-0500 Diastolic blood pressure 81 mm[Hg] Chair [place] Work Phone: [facility] 04-05-2024 15:08-0500 Heart rate 73 /min Chair [place] Work Phone: [facility] 04-05-2024 15:08-0500 Respiratory rate 16 /min Chair [place] Work Phone: [facility] 04-05-2024 15:08-0500 SaO2% (BldA) [Mass fraction] 97 % Chair Ani Work Phone: [facility] 04-05-2024 15:08-0500 Systolic blood pressure 143 mm[Hg] Chair [place] Work Phone: [facility] 04-03-2024 15:10-0500 Body temperature 98.29 [degF] Chair Ani Work Phone: [facility] 04-03-2024 15:10-0500 Diastolic blood pressure 88 mm[Hg] Chair [place] Work Phone: [facility] 04-03-2024 15:10-0500 Heart rate 72 /min Chair Ani Work Phone: [facility] 04-03-2024 15:10-0500 Respiratory rate 18 /min Chair [place] Work Phone: [facility] 04-03-2024 15:10-0500 SaO2% (BldA) [Mass fraction] 100 % Chair [place] Work Phone: [facility] 04-03-2024 15:10-0500 Systolic blood pressure 144 mm[Hg] Chair Ani Work Phone: [facility] 03-29-2024 15:08-0500 Body temperature 98.1 [degF] Chair [place] Work Phone: [facility] 03-29-2024 15:08-0500 Diastolic blood pressure 76 mm[Hg] Chair [place] Work Phone: [facility] 03-29-2024 15:08-0500 Heart rate 70 /min Chair [place] Work Phone: [facility] 03-29-2024 15:08-0500 Respiratory rate 16 /min Chair [place] Work Phone: [facility] 03-29-2024 15:08-0500 SaO2% (BldA) [Mass fraction] 98 % Chair [place] Work Phone: [facility] 03-29-2024 15:08-0500 Systolic blood pressure 116 mm[Hg] Chair [place] Work Phone: [facility] 03-27-2024 15:07-0500 Body temperature 97.7 [degF] Chair Ani Work Phone: [facility] 03-27-2024 15:07-0500 Diastolic blood pressure 69 mm[Hg] Chair Ani Work Phone: [facility] 03-27-2024 15:07-0500 Heart rate 78 /min Chair Ani Work Phone: [facility] 03-27-2024 15:07-0500 Respiratory rate 18 /min Chair [place] Work Phone: [facility] 03-27-2024 15:07-0500 SaO2% (BldA) [Mass fraction] 98 % Chair Ani Work Phone: [facility] 03-27-2024 15:07-0500 Systolic blood pressure 113 mm[Hg] Chair [place] Work Phone: [facility] 03-22-2024 14:20-0500 Body mass index (BMI) [Ratio] 31.32 kg/m2 Pura Nataprawira DO Work Phone: [facility] 03-22-2024 14:20-0500 Body weight 90.72 kg Pura Nataprawira DO Work Phone: [facility] 03-22-2024 14:20-0500 Diastolic blood pressure 82 mm[Hg] Pura Nataprawira DO Work Phone: [facility] 03-22-2024 14:20-0500 Systolic blood pressure 148 mm[Hg] Pura Nataprawira DO Work Phone: [facility] 03-14-2024 14:34-0400 Body height 167.6 cm Maite Sari PA-C Work Phone: [facility] 03-14-2024 14:34-0400 Body mass index (BMI) [Ratio] 32.82 kg/m2 Maite Sari PA-C Work Phone: [facility] 03-14-2024 14:34-0400 Body temperature 97.5 [degF] Maite Sari PA-C Work Phone: [facility] 03-14-2024 14:34-0400 Body weight 92.2 kg Maite Sari PA-C Work Phone: [facility] 03-14-2024 14:34-0400 Diastolic blood pressure 74 mm[Hg] Maite Sari PA-C Work Phone: [facility] 03-14-2024 14:34-0400 Heart rate 68 /min Maite Sari PA-C Work Phone: [facility] 03-14-2024 14:34-0400 Respiratory rate 16 /min Maite Sari PA-C Work Phone: [facility] 03-14-2024 14:34-0400 SaO2% (BldA) [Mass fraction] 98 % Maite Sari PA-C Work Phone: [facility] 03-14-2024 14:34-0400 Systolic blood pressure 141 mm[Hg] Maite Sari PA-C Work Phone: [facility] 02-15-2024 14:48-0400 Body temperature 97.2 [degF] Ma Sand Work Phone: [facility] 02-15-2024 14:48-0400 Diastolic blood pressure 83 mm[Hg] Ma Sand Work Phone: [facility] 02-15-2024 14:48-0400 Heart rate 75 /min Ma Sand Work Phone: [facility] 02-15-2024 14:48-0400 Respiratory rate 16 /min Ma Sand Work Phone: [facility] 02-15-2024 14:48-0400 SaO2% (BldA) [Mass fraction] 98 % Ma Sand Work Phone: [facility] 02-15-2024 14:48-0400 Systolic blood pressure 137 mm[Hg] Ma Sand Work Phone: [facility] 02-08-2024 09:54-0400 Body height 170.18 cm [facility] 02-08-2024 09:54-0400 Body mass index (BMI) [Ratio] 31.1 kg/m2 [facility] 02-08-2024 09:54-0400 Body weight 90.26 kg [facility] 02-08-2024 09:54-0400 Diastolic blood pressure 88 mm[Hg] [facility] 02-08-2024 09:54-0400 Heart rate 59 /min [facility] 02-08-2024 09:54-0400 Systolic blood pressure 138 mm[Hg] [facility] 02-06-2024 14:02-0400 Body height 170.18 cm [facility] 02-06-2024 14:02-0400 Body mass index (BMI) [Ratio] 31.3 kg/m2 [facility] 02-06-2024 14:02-0400 Body weight 90.71 kg [facility] 02-06-2024 14:02-0400 Diastolic blood pressure 86 mm[Hg] [facility] 02-06-2024 14:02-0400 Heart rate 71 /min [facility] 02-06-2024 14:02-0400 Respiratory rate 18 /min [facility] 02-06-2024 14:02-0400 SaO2% (BldA) [Mass fraction] 98 % [facility] 02-06-2024 14:02-0400 Systolic blood pressure 164 mm[Hg] [facility] 01-18-2024 15:19-0400 Body temperature 97.81 [degF] Ma Sand Work Phone: [facility] 01-18-2024 15:19-0400 Diastolic blood pressure 76 mm[Hg] Ma Sand Work Phone: [facility] 01-18-2024 15:19-0400 Heart rate 77 /min Ma Sand Work Phone: [facility] 01-18-2024 15:19-0400 Respiratory rate 16 /min Ma Sand Work Phone: [facility] 01-18-2024 15:19-0400 SaO2% (BldA) [Mass fraction] 98 % Ma Sand Work Phone: [facility] 01-18-2024 15:19-0400 Systolic blood pressure 134 mm[Hg] Ma Sand Work Phone: [facility] 12-21-2023 14:20-0400 Body height 167.6 cm Jose Rose MD Work Phone: [facility] 12-21-2023 14:20-0400 Body mass index (BMI) [Ratio] 31.97 kg/m2 Jose Rose MD Work Phone: [facility] 12-21-2023 14:20-0400 Body temperature 97.2 [degF] Jose Rose MD Work Phone: [facility] 12-21-2023 14:20-0400 Body weight 89.8 kg Jose Rose MD Work Phone: [facility] 12-21-2023 14:20-0400 Diastolic blood pressure 79 mm[Hg] Jose Rose MD Work Phone: [facility] 12-21-2023 14:20-0400 Heart rate 58 /min Jose Rose MD Work Phone: [facility] 12-21-2023 14:20-0400 Respiratory rate 16 /min Jose Rose MD Work Phone: [facility] 12-21-2023 14:20-0400 SaO2% (BldA) [Mass fraction] 98 % Jose Rose MD Work Phone: [facility] 12-21-2023 14:20-0400 Systolic blood pressure 171 mm[Hg] Jose Rose MD Work Phone: [facility] 11-28-2023 14:16-0400 Body temperature 97.5 [degF] Ma Sand Work Phone: [facility] 11-28-2023 14:16-0400 Diastolic blood pressure 83 mm[Hg] Ma Sand Work Phone: [facility] 11-28-2023 14:16-0400 Heart rate 84 /min Ma Sand Work Phone: [facility] 11-28-2023 14:16-0400 Respiratory rate 16 /min Ma Sand Work Phone: [facility] 11-28-2023 14:16-0400 SaO2% (BldA) [Mass fraction] 98 % Ma Sand Work Phone: [facility] 11-28-2023 14:16-0400 Systolic blood pressure 151 mm[Hg] Ma Sand Work Phone: [facility] 10-31-2023 13:31-0400 Body temperature 97.9 [degF] Ma Sand Work Phone: [facility] 10-31-2023 13:31-0400 Diastolic blood pressure 74 mm[Hg] Ma Sand Work Phone: [facility] 10-31-2023 13:31-0400 Heart rate 61 /min Ma Sand Work Phone: [facility] 10-31-2023 13:31-0400 Respiratory rate 16 /min Ma Sand Work Phone: [facility] 10-31-2023 13:31-0400 SaO2% (BldA) [Mass fraction] 100 % Ma Sand Work Phone: [facility] 10-31-2023 13:31-0400 Systolic blood pressure 125 mm[Hg] Ma Sand Work Phone: [facility] 10-03-2023 13:26-0400 Body height 167.6 cm Jose Rose MD Work Phone: [facility] 10-03-2023 13:26-0400 Body mass index (BMI) [Ratio] 31.72 kg/m2 Jose Rose MD Work Phone: [facility] 10-03-2023 13:26-0400 Body temperature 97.81 [degF] Jose Rose MD Work Phone: [facility] 10-03-2023 13:26-0400 Body weight 89.1 kg Jose Rose MD Work Phone: [facility] 10-03-2023 13:26-0400 Diastolic blood pressure 82 mm[Hg] Jose Rose MD Work Phone: [facility] 10-03-2023 13:26-0400 Heart rate 76 /min Jose Rose MD Work Phone: [facility] 10-03-2023 13:26-0400 Respiratory rate 16 /min Jose Rose MD Work Phone: [facility] 10-03-2023 13:26-0400 SaO2% (BldA) [Mass fraction] 98 % Jose Rose MD Work Phone: [facility] 10-03-2023 13:26-0400 Systolic blood pressure 136 mm[Hg] Jose Rose MD Work Phone: [facility] 07-11-2023 13:01-0500 Body height 167.6 cm Ruben Wiggins APRN.CONFLICT RESOLUTION PROFESSIONAL Work Phone: [facility] 07-11-2023 13:01-0500 Body temperature 97.2 [degF] Ruben Wiggins APRN.CONFLICT RESOLUTION PROFESSIONAL Work Phone: [facility] 07-11-2023 13:01-0500 Body weight 92.6 kg Ruben Wiggins APRN.CONFLICT RESOLUTION PROFESSIONAL Work Phone: [facility] 07-11-2023 13:01-0500 Diastolic blood pressure 77 mm[Hg] Ruben Wiggins APRN.CONFLICT RESOLUTION PROFESSIONAL Work Phone: [facility] 07-11-2023 13:01-0500 Heart rate 84 /min Ruben Wiggins APRN.CONFLICT RESOLUTION PROFESSIONAL Work Phone: [facility] 07-11-2023 13:01-0500 Respiratory rate 16 /min Ruben Wiggins APRN.CONFLICT RESOLUTION PROFESSIONAL Work Phone: [facility] 07-11-2023 13:01-0500 SaO2% (BldA) [Mass fraction] 99 % Ruben Wiggins APRN.CONFLICT RESOLUTION PROFESSIONAL Work Phone: [facility] 07-11-2023 13:01-0500 Systolic blood pressure 150 mm[Hg] Ruben Phoenix SILVA Work Phone: [facility] 07-08-2023 16:42-0500 Diastolic blood pressure 82 mm[Hg] MD Klaudia Gomez Work Phone: [facility] 07-08-2023 16:42-0500 Heart rate 66 /min MD Klaudia Gomez Work Phone: [facility] 07-08-2023 16:42-0500 Respiratory rate 16 /min MD Klaudia Gomez Work Phone: [facility] 07-08-2023 16:42-0500 SaO2% (BldA) [Mass fraction] 97 % MD Klaudia Gomez Work Phone: [facility] 07-08-2023 16:42-0500 Systolic blood pressure 145 mm[Hg] MD Klaudia Gomez Work Phone: [facility] 07-08-2023 15:45-0500 Body temperature 97.5 [degF] MD Klaudia Gomez Work Phone: [facility] 07-08-2023 08:39-0500 Body height 170.18 cm MD Klaudia Gomez Work Phone: [facility] 07-08-2023 08:39-0500 Body weight 91 kg MD Klaudia Gomez Work Phone: [facility] 06-17-2023 09:34-0500 Diastolic blood pressure 86 mm[Hg] MD Klaudia Gomez Work Phone: [facility] 06-17-2023 09:34-0500 Heart rate 66 /min MD Klaudia Gomez Work Phone: [facility] 06-17-2023 09:34-0500 Systolic blood pressure 162 mm[Hg] MD Klaudia Gomez Work Phone: [facility] 06-02-2023 13:40-0500 Body height 167.64 cm Haresh Koromia Other [facility] 06-02-2023 13:40-0500 Body mass index (BMI) [Ratio] 33.7 kg/m2 Haresh Middleton Other [employer] Other 06-02-2023 13:40-0500 Body weight 94.71 kg Haresh Middleton Other [facility] 06-02-2023 13:40-0500 Diastolic blood pressure 86 mm[Hg] Haresh Posadasia Other [facility] 06-02-2023 13:40-0500 Respiratory rate 18 /min Haresh Middleton Other [employer] Other 06-02-2023 13:40-0500 SaO2% (BldA) [Mass fraction] 98 % Haresh Middleton Other [employer] [facility] [employer] Other 06-02-2023 13:40-0500 Systolic blood pressure 144 mm[Hg] Haresh Middleton Other [facility] 05-03-2023 13:40-0500 Body height 167.64 cm MD Klaudia Gomez Work Phone: [facility] 05-03-2023 13:40-0500 Body weight 95.7 kg MD Klaudia Gomez Work Phone: [facility] 05-03-2023 13:40-0500 Diastolic blood pressure 86 mm[Hg] MD Klaudia Gomez Work Phone: [facility] 05-03-2023 13:40-0500 Systolic blood pressure 132 mm[Hg] MD Klaudia Gomez Work Phone: [facility] 04-04-2023 12:57-0500 Body height 167.6 cm Ruben Wiggins APRN.CNP Work Phone: [facility] 04-04-2023 12:57-0500 Body temperature 97.59 [degF] Ruben Wiggins DIE BAKER.CONFLICT RESOLUTION PROFESSIONAL Work Phone: [facility] 04-04-2023 12:57-0500 Body weight 92.99 kg Ruben Wiggins DIE BAKER.CONFLICT RESOLUTION PROFESSIONAL Work Phone: [facility] 04-04-2023 12:57-0500 Diastolic blood pressure 66 mm[Hg] Ruben Wiggins DIE BAKER.CONFLICT RESOLUTION PROFESSIONAL Work Phone: [facility] 04-04-2023 12:57-0500 Heart rate 58 /min Ruben Wiggins DIE BAKER.CONFLICT RESOLUTION PROFESSIONAL Work Phone: [facility] 04-04-2023 12:57-0500 Respiratory rate 16 /min Ruben Wiggins DIE BAKER.CONFLICT RESOLUTION PROFESSIONAL Work Phone: [facility] 04-04-2023 12:57-0500 SaO2% (BldA) [Mass fraction] 97 % Ruben Wiggins DIE BAKER.CONFLICT RESOLUTION PROFESSIONAL Work Phone: [facility] 04-04-2023 12:57-0500 Systolic blood pressure 162 mm[Hg] Ruben Wiggins DIE BAKER.CONFLICT RESOLUTION PROFESSIONAL Work Phone: [facility] 03-07-2023 13:00-0400 Body temperature 98.71 [degF] Chair Ani Work Phone: [facility] 03-07-2023 13:00-0400 Diastolic blood pressure 81 mm[Hg] Chair [place] Work Phone: [facility] 03-07-2023 13:00-0400 Heart rate 63 /min Chair [place] Work Phone: [facility] 03-07-2023 13:00-0400 Respiratory rate 16 /min Chair Ani Work Phone: [facility] 03-07-2023 13:00-0400 SaO2% (BldA) [Mass fraction] 97 % Chair Ani Work Phone: [facility] 03-07-2023 13:00-0400 Systolic blood pressure 138 mm[Hg] Chair [place] Work Phone: [facility] 02-21-2023 13:03-0400 Body temperature 97.9 [degF] Chair Ani Work Phone: [facility] 02-21-2023 13:03-0400 Diastolic blood pressure 69 mm[Hg] Chair [place] Work Phone: [facility] 02-21-2023 13:03-0400 Heart rate 67 /min Chair Ani Work Phone: [facility] 02-21-2023 13:03-0400 Respiratory rate 18 /min Chair Ani Work Phone: [facility] 02-21-2023 13:03-0400 SaO2% (BldA) [Mass fraction] 97 % Chair Ani Work Phone: [facility] 02-21-2023 13:03-0400 Systolic blood pressure 138 mm[Hg] Chair Ani Work Phone: [facility] 02-07-2023 13:31-0400 Body height 167.6 cm Jose Rose MD Work Phone: [facility] 02-07-2023 13:31-0400 Body temperature 97 [degF] Jose Rose MD Work Phone: [facility] 02-07-2023 13:31-0400 Body weight 93.26 kg Jose Rose MD Work Phone: [facility] 02-07-2023 13:31-0400 Diastolic blood pressure 71 mm[Hg] Jose Rose MD Work Phone: [facility] 02-07-2023 13:31-0400 Heart rate 64 /min Jose Rose MD Work Phone: [facility] 02-07-2023 13:31-0400 Respiratory rate 18 /min Jose Rose MD Work Phone: [facility] 02-07-2023 13:31-0400 SaO2% (BldA) [Mass fraction] 99 % Jose Rose MD Work Phone: [facility] 02-07-2023 13:31-0400 Systolic blood pressure 156 mm[Hg] Jose Rose MD Work Phone: [facility] 01-26-2023 15:36-0400 Body height 167.6 cm Jose Rose MD Work Phone: [facility] 01-26-2023 15:36-0400 Body temperature 97.2 [degF] Jose Rose MD Work Phone: [facility] 01-26-2023 15:36-0400 Body weight 93.44 kg Jose Rose MD Work Phone: [facility] 01-26-2023 15:36-0400 Diastolic blood pressure 75 mm[Hg] Jose Rose MD Work Phone: [facility] 01-26-2023 15:36-0400 Heart rate 74 /min Jose Rose MD Work Phone: [facility] 01-26-2023 15:36-0400 Respiratory rate 16 /min Jose Rose MD Work Phone: [facility] 01-26-2023 15:36-0400 SaO2% (BldA) [Mass fraction] 98 % Jose Rose MD Work Phone: [facility] 01-26-2023 15:36-0400 Systolic blood pressure 154 mm[Hg] Jose Rose MD Work Phone: [facility] 01-05-2023 09:45-0400 Body height 167.64 cm Klaudia Gomez Other [employer] Other 01-05-2023 09:45-0400 Body mass index (BMI) [Ratio] 32.44 kg/m2 Klaudia Gomez Other [employer] Other 01-05-2023 09:45-0400 Body weight 91.17 kg Klaudia Gomez Other [employer] Other 01-05-2023 09:45-0400 Diastolic blood pressure 70 mm[Hg] Klaudia Gomez Other [employer] Other 01-05-2023 09:45-0400 Systolic blood pressure 136 mm[Hg] Klaudia Gomez Other [employer] Other 11-19-2022 08:45-0400 Body height 167.64 cm Klaudia Gomez Other [employer] Other 11-19-2022 08:45-0400 Body mass index (BMI) [Ratio] 33.41 kg/m2 Klaudia oGmez Other [employer] Other 11-19-2022 08:45-0400 Body weight 93.9 kg Klaudia Gomez Other [employer] Other 11-19-2022 08:45-0400 Diastolic blood pressure 77 mm[Hg] Klaudia Gomez Other [employer] Other 11-19-2022 08:45-0400 SaO2% (BldA) [Mass fraction] 98 % Klaudia Gomez Other [employer] Other 11-19-2022 08:45-0400 Systolic blood pressure 146 mm[Hg] Klaudia Gomez Other [employer] Other 10-07-2022 13:30-0400 Body height 167.64 cm Klaudia Gomez Other [employer] Other 10-07-2022 13:30-0400 Body mass index (BMI) [Ratio] 34.18 kg/m2 Klaudia Gomez Other [employer] Other 10-07-2022 13:30-0400 Body temperature 98 [degF] Klaudia Gomez Other [employer] Other 10-07-2022 13:30-0400 Body weight 96.07 kg Klaudia Gomez Other [employer] Other 10-07-2022 13:30-0400 Diastolic blood pressure 80 mm[Hg] Klaudia Gomez Other [employer] Other 10-07-2022 13:30-0400 Systolic blood pressure 155 mm[Hg] Klaudia Gomez Other [employer] Other 08-23-2022 16:30-0400 Body height 167.64 cm Klaudia Gomez Other [employer] Other 08-23-2022 16:30-0400 Body mass index (BMI) [Ratio] 34.05 kg/m2 Klaudia Gomez Other [employer] Other 08-23-2022 16:30-0400 Body weight 95.71 kg Klaudia Gomez Other [employer] Other 08-23-2022 16:30-0400 Diastolic blood pressure 76 mm[Hg] Klaudia Gomez Other [employer] Other 08-23-2022 16:30-0400 SaO2% (BldA) [Mass fraction] 97 % Klaudia Gomez Other [employer] Other 08-23-2022 16:30-0400 Systolic blood pressure 130 mm[Hg] Klaudia Gomez Other [employer] Other Encounters Encounter Date Encounter Type Care Provider Facility Start: 04-23-2024 End: 04-23-2024 Office outpatient visit 15 minutes Pura Gautamaprjoséra DO Work Phone: [facility] Comment on above: Encounter for pessar y maintenance (Primary Dx); Mixed urge and stress incontinence; Cystocele, midline Start: 04-23-2024 End: 04-23-2024 ambulatory PURA Vila NATAPRAWIRA Not Available Start: 04-11-2024 End: 04-11-2024 Office outpatient visit 15 minutes Pura Vila Nataprawira DO Work Phone: [facility] Comment on above: Encounter for pessar y maintenance (Primary Dx); Mixed urge and stress incontinence; Cystocele, midline Start: 04-11-2024 End: 04-11-2024 ambulatory PURA Vila NATAPRAWIRA Not Available Start: 04-10-2024 End: 04-10-2024 ambulatory Chair [address] [employer] OS Work Phone: Hematology/Oncology Comment on above: Iron deficiency anem ia secondary to inadequate dietary iron intake (Primary Dx) Start: 04-05-2024 End: 04-05-2024 ambulatory Chair [employer] Work Phone: Hematology/Oncology Comment on above: Iron deficiency anem ia secondary to inadequate dietary iron intake (Primary Dx) Start: 04-03-2024 End: 04-03-2024 ambulatory Chair [employer] Work Phone: Hematology/Oncology Comment on above: Iron deficiency anem ia secondary to inadequate dietary iron intake (Primary Dx) Start: 03-29-2024 End: 03-29-2024 ambulatory Chair [employer] Work Phone: Hematology/Oncology Comment on above: Iron deficiency anem ia secondary to inadequate dietary iron intake (Primary Dx) Start: 03-27-2024 End: 03-27-2024 ambulatory Chair [employer] Work Phone: Hematology/Oncology Comment on above: Iron deficiency anem ia secondary to inadequate dietary iron intake (Primary Dx) Start: 03-26-2024 End: 03-26-2024 Social Work Mare Husain NEWSPAPER PHOTOJOURNALIST Hematology/Oncology Start: 03-22-2024 End: 03-22-2024 ambulatory PURA LARA Not Available Start: 03-22-2024 End: 03-22-2024 Office outpatient new 30 minutes Pura Vila Marco DO Work Phone: [facility] Comment on above: Mixed urge and stres s incontinence (Primary Dx); Cystocele, midline; Fitting and adjustment of pessary; Other screening mammogram Start: 03-15-2024 End: 03-16-2024 Telephone encounter Kendal Sparks RN Hematology/Oncology Comment on above: Results; IV Venofer x 5 doses Start: 03-14-2024 End: 03-14-2024 Nursing evaluation of patient and report Mervin Yoo Work Phone: Hematology/Oncology Comment on above: Iron deficiency anem ia secondary to inadequate dietary iron intake (Primary Dx) Start: 03-14-2024 End: 03-14-2024 Office outpatient visit 15 minutes Maite Merritt PA-C Work Phone: Hematology/Oncology Comment on above: Iron deficiency anem ia secondary to inadequate dietary iron intake (Primary Dx); Megaloblastic anemia due to vitamin B12 deficiency; Folate deficiency; Malaise and fatigue Start: 03-14-2024 End: 03-14-2024 ambulatory MAITE MERRITT Facility:[facility] Start: 02-20-2024 End: 02-20-2024 Patient encounter procedure MD Klaudia Gomez Work Phone: [facility] Work Phone: Start: 02-20-2024 End: 02-20-2024 ambulatory Klaudia Gomez Facility:[facility] Start: 02-15-2024 End: 02-15-2024 ambulatory KLAUDIA GOMEZ Facility:[facility] Start: 02-15-2024 End: 02-15-2024 Nursing evaluation of patient and report Mervin Yoo Work Phone: Hematology/Oncology Comment on above: Iron deficiency anem ia secondary to inadequate dietary iron intake (Primary Dx) Start: 02-09-2024 End: 02-13-2024 Telephone encounter Madina Huynh AIR POLLUTION SPECIALIST [facility] Start: 02-08-2024 Patient encounter status [facility] Start: 02-08-2024 End: 02-08-2024 Encounter for gynecological examination (general) (routine) without abnormal findings [facility] Start: 02-08-2024 End: 02-08-2024 Patient encounter procedure [facility] Physician [facility] Work Phone: Start: 02-06-2024 End: 02-06-2024 Patient encounter procedure [facility] Work Phone: Start: 01-18-2024 End: 01-18-2024 ambulatory KLAUDIA GOMEZ Facility:[facility] Start: 01-18-2024 End: 01-18-2024 Nursing evaluation [...] Folate deficiency Start: 12-21-2023 Non-patient / Non-visit [facility] Work Phone: Start: 12-21-2023 End: 12-21-2023 ambulatory JOSE ROSE Facility:[facility] Start: 11-28-2023 End: 11-28-2023 ambulatory KLAUDIA GOMEZ Facility:[facility] Start: 11-28-2023 End: 11-28-2023 Nursing evaluation of patient and report Mervin Yoo Work Phone: Hematology/Oncology Comment on above: Iron deficiency anem ia secondary to inadequate dietary iron intake (Primary Dx) Start: 11-11-2023 End: 11-11-2023 ambulatory Haresh Middleton Facility:[facility] Start: 10-31-2023 End: 10-31-2023 ambulatory KLAUDIA GOMEZ Facility:[facility] Start: 10-31-2023 End: 10-31-2023 Nursing evaluation of patient and report Mervin Yoo Work Phone: Hematology/Oncology Comment on above: Iron deficiency anem ia secondary to inadequate dietary iron intake (Primary Dx) Start: 10-31-2023 End: 10-31-2023 ambulatory TESS Nguyen RENETTA Not Available Start: 10-03-2023 End: 10-03-2023 Nursing evaluation of patient and report Mervin Yoo Work Phone: Hematology/Oncology Comment on above: Iron deficiency anem ia secondary to inadequate dietary iron intake (Primary Dx) Start: 10-03-2023 End: 10-03-2023 ambulatory JOSE ROSE Facility:[facility] Start: 10-03-2023 End: 10-03-2023 Office outpatient visit 25 minutes Jose Rose MD Work Phone: Hematology/Oncology Comment on above: Anemia, unspecified type (Primary Dx) Start: 09-29-2023 End: 09-29-2023 ambulatory KLAUDIA GOMEZ Facility:[facility] Start: 09-27-2023 Unlisted evaluation and management service Jose Rose MD Work Phone: Hematology/Oncology Comment on above: Opened In Error Start: 08-17-2023 End: 08-17-2023 Emergency department patient visit ALEXIA MCKEON [facility] Start: 07-11-2023 End: 07-11-2023 ambulatory Ruben Wiggins APRN.CNP Work Phone: Hematology/Oncology Comment on above: Iron deficiency anem ia secondary to inadequate dietary iron intake (Primary Dx) Start: 07-11-2023 End: 07-11-2023 Patient encounter procedure Ruben Phoenix DIE BAKER.CONFLICT RESOLUTION PROFESSIONAL Work Phone: ANI Start: 07-08-2023 Telephone encounter Manuel Carbajal itt [facility] Work Phone: [facility] HB[facility] Comment on above: Medication Follow-up (venofer) Start: 07-08-2023 Non-patient / Non-visit MD Chaya Gomez Work Phone: [facility] Physician [facility] Card[facility] Work Phone: Start: 07-08-2023 End: 07-08-2023 Admission to same day surgery center MD Klaudia Gomez Work Phone: [facility]-[employer] Operator Work Phone: Start: 07-08-2023 End: 07-08-2023 ambulatory MD Klaudia Gomez Work Phone: [facility] Work Phone: Start: 07-07-2023 Non-patient / Non-visit MD Chaya Gomez Work Phone: [facility] Work Phone: Start: 07-07-2023 End: 07-07-2023 ambulatory KLAUDIA GOMEZ Facility:[facility] Start: 07-06-2023 End: 07-06-2023 Patient encounter procedure MD Klaudia Gomez Work Phone: [facility]ul-[employer] Testing Work Phone: Start: 07-06-2023 End: 07-06-2023 ambulatory MD Klaudia Gomez Work Phone: [facility] Work Phone: Start: 06-23-2023 End: 06-23-2023 ambulatory Haresh Middleton Other [facility] [employer] Other Start: 06-23-2023 Telephone encounter Haresh [facility] Start: 06-17-2023 End: 06-17-2023 Patient encounter procedure MD Klaudia Gomez Work Phone: [facility]-Electrodiagnostics Work Phone: Start: 06-17-2023 End: 06-17-2023 ambulatory MD Klaudia Gomez Work Phone: [facility] Work Phone: Start: 06-02-2023 End: 06-02-2023 ambulatory Haresh Posadasyann Other [employer] Other Start: 06-02-2023 Office outpatient vi sit 25 minutes Haresh Madhuriomia [facility] Start: 06-02-2023 End: 06-02-2023 Patient encounter procedure MD Klaudia Gomez Work Phone: [facility]- Start: 05-13-2023 End: 05-13-2023 Patient encounter procedure MD Klaudia Gomez Work Phone: [facility]-Electrodiagnostics Work Phone: Start: 05-13-2023 End: 05-13-2023 ambulatory MD Klaudia Gomez Work Phone: [facility] Work Phone: Start: 05-12-2023 End: 05-12-2023 ambulatory Klaudia Gomez Other [employer] Other Start: 05-12-2023 Telephone encounter Klaudia Gomez [facility] [employer] Supervisor Start: 05-03-2023 End: 05-03-2023 Patient encounter procedure MD Klaudia Gomez Work Phone: [facility] Work Phone: Start: 04-13-2023 End: 04-13-2023 ambulatory Klaudia Gomez Other [employer] Other Start: 04-13-2023 Telephone encounter Klaudia Gomez [facility] Start: 04-04-2023 Telephone encounter Klaudia Gomez [facility] Start: 04-04-2023 End: 04-04-2023 ambulatory Ruben Wiggins DIE BAKER.CONFLICT RESOLUTION PROFESSIONAL Work Phone: Hematology/Oncology Comment on above: Iron deficiency anem ia secondary to inadequate dietary iron intake (Primary Dx) Start: 04-04-2023 End: 04-04-2023 Patient encounter procedure Ruben Phoenix DIE BAKER.CONFLICT RESOLUTION PROFESSIONAL Work Phone: ANI Start: 03-07-2023 End: 03-07-2023 ambulatory Chair 11 Ani Work Phone: Hematology/Oncology Comment on above: Iron deficiency anem ia secondary to inadequate dietary iron intake (Primary Dx) Start: 02-21-2023 End: 02-21-2023 ambulatory Chair 12 Ani Work Phone: Hematology/Oncology Comment on above: Iron deficiency anem ia secondary to inadequate dietary iron intake (Primary Dx) Start: 02-07-2023 End: 02-07-2023 Office outpatient visit 25 minutes Jose Rose [...] 01-11-2023 End: 01-11-2023 ambulatory Klaudia Gomez Other [employer] Other Start: 01-11-2023 Telephone encounter Klaudia Gomez [facility] Start: 01-05-2023 End: 01-05-2023 ambulatory Klaudia Gomez Other [employer] Other Start: 01-05-2023 Office outpatient vi sit 15 minutes Klaudia Gomez [facility] Start: 12-27-2022 End: 12-27-2022 ambulatory Klaudia Gomez Other [employer] Other Start: 12-27-2022 Telephone encounter Klaudia Gomez [facility] Start: 11-19-2022 End: 11-19-2022 ambulatory Klaudia Gomez Other [employer] Other Start: 11-19-2022 Office outpatient vi sit 15 minutes Klaudia Gomez [facility] Start: 10-27-2022 End: 10-27-2022 ambulatory Klaudia Gomez Other [employer] Other Start: 10-27-2022 Telephone encounter Klaudia Gomez [facility] Start: 10-07-2022 End: 10-07-2022 ambulatory Klaudia Gomez Other [employer] Other Start: 10-07-2022 Office outpatient vi sit 15 minutes Klaudia Gomez [facility] Start: 09-02-2022 Encounter for genera l adult medical examination without abnormal findings DR KLAUDIA GOMEZ [facility] Start: 08-28-2022 End: 08-29-[address] KLAUDIA GOMEZ Facility:[facility] Start: 08-28-2022 End: 08-29-2022 Encounter for general adult medical examination without abnormal findings DR KLAUDIA GOMEZ Facility:[facility] Start: 08-23-2022 End: 08-23-2022 ambulatory Klaudia Gomez Other [employer] Other Start: 08-23-2022 Encounter for genera l adult medical examination without abnormal findings Klaudia Gomez [facility] Start: 08-23-2022 Periodic preventive med est patient 40-64yrs Klaudia Gomez [facility] Start: 03-16-2022 End: 03-17-[address] JONAS SANDERS . Facility:[facility] Start: 03-10-2022 End: 03-11-[address] KLAUDIA GOMEZ Facility:[facility] Start: 02-17-2022 Gynecological examination normal Klaudia Gomez Other [employer] Other Start: 02-17-2022 End: 02-18-[address] KLAUDIA GOMEZ Facility:[facility] Start: 12-28-2021 End: 12-28-[address] DOCTOR WASSERMAN Facility:[facility] Start: 12-25-2021 End: 12-25-2021 Adult health examination Klaudia Gomez Other [facility] [employer] Other Procedures Date Procedure Procedure Detail Performing Clinician Start: 04-23-2024 Urnls dip stick/tabl et rgnt non-auto w/o micrscp Pura Gautamaprawi DO Work Phone: Start: 04-11-2024 Urnls dip stick/tabl et rgnt non-auto w/o micrscp Pura Gautamaprawi DO Work Phone: Start: 03-22-2024 GOAT DRIVER PESSARY Pura Gautam aprnatasha DO Work Phone: Start: 02-20-2024 Plain X-ray of left hand [...] study MD Klaudia Gomez Work Phone: Start: 02-18-2023 Microscopic observat ion [Identifier] in Cervix by Cyto stain Pura Lara DO Work Phone: Start: 02-18-2023 THINPREP TIS PAP AND HPV MRNA E6/E7 REFLEX HPV 16,18/45 (87711) Pura J Nataprawira DO Work Phone: Start: 03-16-2022 Mammography Madina guthrieiti AIR POLLUTION SPECIALIST Start: 02-09-2018 End: 06-28-2019 General examination of patient Klaudia Gomez Other Start: 02-09-2018 End: 06-28-2019 Screening mammography Klaudia Gomez Other Screening for malign ant neoplasm of breast Klaudia Gomez Other Screening for malign ant neoplasm of colon Klaudia Gomez Other Plan of Treatment Date Care Activity Detail Author Start: 11-21-2038 RSV Vaccine (1 - 1-d ose 75+ series) RSV Vaccine (1 - 1-dose 75+ series) [facility] Start: 10-07-2033 Urine microalbumin profile DTaP,Tdap,Td Vaccine (2 - Td or Tdap) [facility] Start: 02-19-2028 Screening for malign ant neoplasm of cervix [facility] Start: 03-14-2027 [facility] Start: 12-20-2026 [facility] Start: 09-28-2026 [facility] Start: 07-07-2026 [facility] Start: 04-04-2026 [facility] Start: 02-28-2026 [facility] Start: 02-18-2026 Screening for malign ant neoplasm of cervix Pap Smear [facility] Start: 01-27-2026 Diabetes Screening Diabetes Screen[facility] Start: 06-14-2024 End: 09-13-2024 CBC W Auto Differential panel - Blood COMPLETE BLOOD COUNT AND DIFFERENTIAL Lab Routine Iron deficiency anemia secondary to inadequate dietary iron intake Megaloblastic anemia due to vitamin B12 deficiency Folate deficiency Expected: 06/14/2024 (Approximate), Expires: 09/13/2024 [facility] Comment on above: Expected: 06/14/2024 (Approximate), Expires: 09/13/2024 Start: 06-14-2024 End: 09-13-2024 Cobalamin (Vitamin B12) [Mass/volume] in Serum or Plasma VITAMIN B12 Lab Routine Iron deficiency anemia secondary to inadequate dietary iron intake Megaloblastic anemia due to vitamin B12 deficiency Folate deficiency Expected: 06/14/2024 (Approximate), Expires: 09/13/2024 [facility] Comment on above: Expected: 06/14/2024 (Approximate), Expires: 09/13/2024 Start: 06-14-2024 End: 09-13-2024 Comprehensive metabolic 2000 panel - Serum or Plasma COMPREHENSIVE METABOLIC PANEL Lab Routine Iron deficiency anemia secondary to inadequate dietary iron intake Megaloblastic anemia due to vitamin B12 deficiency Folate deficiency Expected: 06/14/2024 (Approximate), Expires: 09/13/2024 [facility] Comment on above: Expected: 06/14/2024 (Approximate), Expires: 09/13/2024 Start: 06-14-2024 End: 09-13-2024 Ferritin [Mass/volume] in Serum or Plasma FERRITIN Lab Routine Iron deficiency anemia secondary to inadequate dietary iron intake Megaloblastic anemia due to vitamin B12 deficiency Folate deficiency Expected: 06/14/2024 (Approximate), Expires: 09/13/2024 [facility] Comment on above: Expected: 06/14/2024 (Approximate), Expires: 09/13/2024 Start: 06-14-2024 End: 09-13-2024 Folate [Mass/volume] in Serum or Plasma FOLATE, SERUM Lab Routine Iron deficiency anemia secondary to inadequate dietary iron intake Megaloblastic anemia due to vitamin B12 deficiency Folate deficiency Expected: 06/14/2024 (Approximate), Expires: 09/13/2024 [facility] Comment on above: Expected: 06/14/2024 (Approximate), Expires: 09/13/2024 Start: 06-14-2024 End: 09-13-2024 Iron and Iron binding capacity panel - Serum or Plasma IRON AND TIBC Lab Routine Iron deficiency anemia secondary to inadequate dietary iron intake Megaloblastic anemia due to vitamin B12 deficiency Folate deficiency Expected: 06/14/2024 (Approximate), Expires: 09/13/2024 [facility] Comment on above: Expected: 06/14/2024 (Approximate), Expires: 09/13/2024 Start: 06-14-2024 End: 09-13-2024 Lactate dehydrogenase [Enzymatic activity/volume] in Serum or Plasma LACTATE DEHYDROGENASE Lab Routine Iron deficiency anemia secondary to inadequate dietary iron intake Megaloblastic anemia due to vitamin B12 deficiency Folate deficiency Expected: 06/14/2024 (Approximate), Expires: 09/13/2024 [facility] Work Phone: Comment on above: Expected: 06/14/2024 (Approximate), Expires: 09/13/2024 Start: 06-14-2024 End: 09-13-2024 RETICULOCYTE COUNT RETICULOCYTE COUNT Lab Routine Iron deficiency anemia secondary to inadequate dietary iron intake Megaloblastic anemia due to vitamin B12 deficiency Folate deficiency Expected: 06/14/2024 (Approximate), Expires: 09/13/2024 [facility] Comment on above: Expected: 06/14/2024 (Approximate), Expires: 09/13/2024 Start: 06-06-2024 End: 06-06-2024 Nursing evaluation of patient and report 06/06/2024 3:00 PM EST Nurse Visit Hematology/Oncology [address] [place] [place] [address] Mervin Yoo Nurse Edmund [address] [place] [address] 12 week follow up with lab and B12 sameday Hematology/Oncology Comment on above: 12 week follow up wi th lab and B12 sameday Start: 06-06-2024 End: 06-06-2024 Follow-up encounter 06/06/2024 2:30 PM EST Visit (SP) Office Hematology/Oncology [address] [place] [address] Maite Merritt, PA-C [address] [place] [address] 12 week follow up lab and B 12 inj Hematology/Oncology Comment on above: 12 week follow up la b and B 12 inj Start: 06-06-2024 End: 06-06-2024 Patient encounter procedure 06/06/2024 2:15 PM EST Office Visit [facility] [address] [place] [address] 12 week follow up with lab same day and B 12 inj [facility] Comment on above: 12 week follow up wi th lab same day and B 12 inj Start: 05-10-2024 End: 05-10-2024 Nursing evaluation of patient and report 05/10/2024 2:00 PM EST Nurse Visit Hematology/Oncology [address] [place] [address] Mervin Yoo Nurse Edmund [address] [place] [place] [address] B 12 inj q 4 weeks Hematology/Oncology Comment on above: B 12 inj q 4 weeks Start: 04-11-2024 End: 04-11-2024 Nursing evaluation of patient and report 04/11/2024 2:00 PM EST Nurse Visit Hematology/Oncology [address] [place] [address] Mervin Yoo Nurse Edmund [address] [place] [place] [address] B 12 inj q 4 weeks Hematology/Oncology Comment on above: B 12 inj q 4 weeks Start: 04-11-2024 End: 04-11-2024 Patient encounter procedure 04/11/2024 10:30 AM EST Office Visit [facility] [address] [place]LYN D [address] [id number] Pura Lara DO [address] [phone] [facility] Start: 04-10-2024 End: 04-10-2024 ambulatory 04/10/2024 3:00 PM EST Infusion Center Hematology/Oncology [address] [place] [place] [address] VENOFER 200 MG IVP X5 + B12 Hematology/Oncology Comment on above: VENOFER 200 MG IVP X 5 + B12 Start: 04-05-2024 End: 04-05-2024 ambulatory 04/05/2024 3:00 PM EST Infusion Center Hematology/Oncology [address] [place] [place] [address] VENOFER 200 MG IVP X5 Hematology/Oncology Comment on above: VENOFER 200 MG IVP X 5 Start: 04-03-2024 End: 04-03-2024 ambulatory 04/03/2024 3:00 PM EST Infusion Center Hematology/Oncology [address] [place] [address] VENOFER 200 MG IVP X5 Hematology/Oncology Comment on above: VENOFER 200 MG IVP X 5 Start: 03-29-2024 End: 03-29-2024 ambulatory 03/29/2024 3:00 PM EST Infusion Center Hematology/Oncology [address] [place] [address] VENOFER 200 MG IVP X5 Hematology/Oncology Comment on above: VENOFER 200 MG IVP X 5 Start: 03-27-2024 End: 03-27-2024 ambulatory 03/27/2024 3:00 PM EST Infusion Center Hematology/Oncology [address] [place] [place] [address] VENOFER 200 MG IVP X5 Hematology/Oncology Comment on above: VENOFER 200 MG IVP X 5 Start: 03-22-2024 End: 03-22-2024 Patient encounter procedure 03/22/2024 1:45 PM EST Office Visit [facility] [address] [place] D [address] [phone] Pura Lara DO [address] [phone] [facility] Start: 03-14-2024 End: 03-14-2024 Nursing evaluation of patient and report Hematology/Oncology Comment on above: 12 week follow up wi th lab same day and B 12 inj-SEES SAAD- orders need signed date needs changed for B12 12 week follow up wi th lab and B12 sameday Start: 03-14-2024 End: 03-14-2024 Follow-up encounter 03/14/2024 2:15 PM EDT Visit (SP) Office Hematology/Oncology [address] [facility] [address] Jose Rose MD [address] [place] [address] 12 week follow up with lab same [...] Folate deficiency Expected: 03/14/2024 (Approximate), Expires: 12/20/2024 [facility] Work Phone: Comment on above: Expected: 03/14/2024 (Approximate), Expires: 12/20/2024 Start: 03-14-2024 End: 12-20-2024 Cobalamin (Vitamin B12) [Mass/volume] in Serum or Plasma VITAMIN B12 Lab Routine Anemia, unspecified type Iron deficiency anemia secondary to inadequate dietary iron intake Megaloblastic anemia due to vitamin B12 deficiency Folate deficiency Expected: 03/14/2024 (Approximate), Expires: 12/20/2024 [facility] Comment on above: Expected: 03/14/2024 (Approximate), Expires: 12/20/2024 Start: 03-14-2024 End: 12-20-2024 Comprehensive metabolic 2000 panel - Serum or Plasma COMPREHENSIVE METABOLIC PANEL Lab Routine Anemia, unspecified type Iron deficiency anemia secondary to inadequate dietary iron intake Megaloblastic anemia due to vitamin B12 deficiency Folate deficiency Expected: 03/14/2024 (Approximate), Expires: 12/20/2024 [facility] Comment on above: Expected: 03/14/2024 (Approximate), Expires: 12/20/2024 Start: 03-14-2024 End: 12-20-2024 Ferritin [Mass/volume] in Serum or Plasma FERRITIN Lab Routine Anemia, unspecified type Iron deficiency anemia secondary to inadequate dietary iron intake Megaloblastic anemia due to vitamin B12 deficiency Folate deficiency Expected: 03/14/2024 (Approximate), Expires: 12/20/2024 [facility] Comment on above: Expected: 03/14/2024 (Approximate), Expires: 12/20/2024 Start: 03-14-2024 End: 12-20-2024 Folate [Mass/volume] in Serum or Plasma FOLATE, SERUM Lab Routine Anemia, unspecified type Iron deficiency anemia secondary to inadequate dietary iron intake Megaloblastic anemia due to vitamin B12 deficiency Folate deficiency Expected: 03/14/2024 (Approximate), Expires: 12/20/2024 [facility] Comment on above: Expected: 03/14/2024 (Approximate), Expires: 12/20/2024 Start: 03-14-2024 End: 12-20-2024 Iron and Iron binding capacity panel - Serum or Plasma IRON AND TIBC Lab Routine Anemia, unspecified type Iron deficiency anemia secondary to inadequate dietary iron intake Megaloblastic anemia due to vitamin B12 deficiency Folate deficiency Expected: 03/14/2024 (Approximate), Expires: 12/20/2024 [facility] Comment on above: Expected: 03/14/2024 (Approximate), Expires: 12/20/2024 Start: 03-14-2024 End: 06-13-2024 Lactate dehydrogenase [Enzymatic activity/volume] in Serum or Plasma LACTATE DEHYDROGENASE Lab Routine Anemia, unspecified type Iron deficiency anemia secondary to inadequate dietary iron intake Megaloblastic anemia due to vitamin B12 deficiency Folate deficiency Expected: 03/14/2024 (Approximate), Expires: 06/13/2024 [facility] Comment on above: Expected: 03/14/2024 (Approximate), Expires: 06/13/2024 Start: 03-14-2024 End: 03-14-2024 Patient encounter procedure 03/14/2024 2:00 PM EDT Office Visit [facility] [address] [place] [address] [place] [address] 12 week follow up with lab same day and B 12 inj [facility] Comment on above: 12 week follow up wi th lab same day and B 12 inj Start: 03-14-2024 End: 06-13-2024 RETICULOCYTE COUNT RETICULOCYTE COUNT Lab Routine Anemia, unspecified type Iron deficiency anemia secondary to inadequate dietary iron intake Megaloblastic anemia due to vitamin B12 deficiency Folate deficiency Expected: 03/14/2024 (Approximate), Expires: 06/13/2024 [facility] Comment on above: Expected: 03/14/2024 (Approximate), Expires: 06/13/2024 Start: 03-14-2024 End: 06-13-2024 Thyrotropin [Units/volume] in Serum or Plasma [facility] Comment on above: Expected: 03/14/2024 , Expires: 06/13/2024 Start: 02-15-2024 End: 02-15-2024 Nursing evaluation of patient and report 02/15/2024 2:30 PM EDT Nurse Visit Hematology/Oncology [address] [place] [address] [place] [address] Mervin Yoo Nurse Edmund [address] [place] [place] [address] 12 week follow up with lab same day and B 12 inj-SEES SAAD-orders need signed date needs changed for B12 Hematology/Oncology Comment on above: 12 week follow up wi th lab same day and B 12 inj-SEES SAAD- orders need signed date needs changed for B12 Start: 02-08-2024 Patient referral [facility] Work Phone: Start: 01-18-2024 End: 01-18-2024 Nursing evaluation of patient and report 01/18/2024 2:30 PM EDT Nurse Visit Hematology/Oncology [address] [place] [address] [place] [address] Mervin Yoo Nurse Edmund [address] [place] [address] [place] [address] 12 week follow up with lab same day and B 12 inj-SEES SAAD-orders need signed date needs changed for B12 Hematology/Oncology Comment on above: 12 week follow up wi th lab same day and B 12 inj-SEES SAAD- orders need signed date needs changed for B12 Start: 01-15-2024 Covid-19 Vaccine ( season) Covid-19 Vaccine ( season) [facility] Start: 01-15-2024 Covid-19 Vaccine ( season) Covid-19 Vaccine ( season) [facility] Start: 01-15-2024 Influenza vaccination Influenza Vacc ine (#1) [facility] Start: 12-26-2023 End: 12-26-2023 Nursing evaluation of patient and report 12/26/2023 2:15 PM EDT Nurse Visit Hematology/Oncology [address] [place] [address] Mervin Yoo Nurse Edmund [address] [place] [address] 12 week follow up with lab same day and B 12 inj Hematology/Oncology Comment on above: 12 week follow up wi th lab same day and B 12 inj Start: 12-26-2023 End: 10-02-2024 CBC W Auto Differential panel - Blood COMPLETE BLOOD COUNT AND DIFFERENTIAL Lab Routine Anemia, unspecified type Expected: 12/26/2023 (Approximate), Expires: 10/02/2024 [facility] Work Phone: Comment on above: Expected: 12/26/2023 (Approximate), Expires: 10/02/2024 Start: 12-26-2023 End: 10-02-2024 Cobalamin (Vitamin B12) [Mass/volume] in Serum or Plasma VITAMIN B12 Lab Routine Anemia, unspecified type Expected: 12/26/2023 (Approximate), Expires: 10/02/2024 [facility] Comment on above: Expected: 12/26/2023 (Approximate), Expires: 10/02/2024 Start: 12-26-2023 End: 10-02-2024 Comprehensive metabolic 2000 panel - Serum or Plasma COMPREHENSIVE METABOLIC PANEL Lab Routine Anemia, unspecified type Expected: 12/26/2023 (Approximate), Expires: 10/02/2024 [facility] Comment on above: Expected: 12/26/2023 (Approximate), Expires: 10/02/2024 Start: 12-26-2023 End: 10-02-2024 Ferritin [Mass/volume] in Serum or Plasma FERRITIN Lab Routine Anemia, unspecified type Expected: 12/26/2023 (Approximate), Expires: 10/02/2024 [facility] Comment on above: Expected: 12/26/2023 (Approximate), Expires: 10/02/2024 Start: 12-26-2023 End: 10-02-2024 Folate [Mass/volume] in Serum or Plasma FOLATE, SERUM Lab Routine Anemia, unspecified type Expected: 12/26/2023 (Approximate), Expires: 10/02/2024 [facility] Comment on above: Expected: 12/26/2023 (Approximate), Expires: 10/02/2024 Start: 12-26-2023 End: 12-26-2023 Follow-up encounter 12/26/2023 2:00 PM EDT Visit (SP) Office Hematology/Oncology [address] [place] [place] [address] Jose Rose MD [address] [place] [place] [address] 12 week follow up with lab same day and B 12 inj Hematology/Oncology Comment on above: 12 week follow up wi th lab same day and B 12 inj Start: 12-26-2023 End: 10-02-2024 Iron and Iron binding capacity panel - Serum or Plasma IRON AND TIBC Lab Routine Anemia, unspecified type Expected: 12/26/2023 (Approximate), Expires: 10/02/2024 [facility] Comment on above: Expected: 12/26/2023 (Approximate), Expires: 10/02/2024 Start: 12-26-2023 End: 12-26-2023 Patient encounter procedure 12/26/2023 1:45 PM EDT Office Visit [facility] [address] [place] [address] 12 week follow up with lab same day and B 12 inj [facility] Comment on above: 12 week follow up wi th lab same day and B 12 inj Start: 12-21-2023 End: 12-21-2023 Nursing evaluation of patient and report 12/21/2023 3:00 PM EDT Nurse Visit Hematology/Oncology [address] [place] [address] Mervin Yoo Nurse Edmund [address] [place] [address] 12 week follow up with lab same day and B 12 inj Hematology/Oncology Comment on above: 12 week follow up wi th lab same day and B 12 inj Start: 12-21-2023 End: 12-21-2023 Follow-up encounter 12/21/2023 2:30 PM EDT Visit (SP) Office Hematology/Oncology [address] [place] [address] Jose Rose MD [address] [place] [address] 12 week follow up with lab same day and B 12 inj Hematology/Oncology Comment on above: 12 week follow up wi th lab same day and B 12 inj Start: 12-21-2023 End: 12-21-2023 Patient encounter procedure 12/21/2023 2:15 PM EDT Office Visit [facility] [address] [place] [address] 12 week follow up with lab same day and B 12 inj [facility] Comment on above: 12 week follow up wi lab same day and B 12 inj Start: 11-28-2023 End: 11-28-2023 Nursing evaluation of patient and report 11/28/2023 2:00 PM EDT Nurse Visit Hematology/Oncology [address] [place] [address] [place] [address] Mervin Yoo Nurse Edmund [address] [place] [place] [address] B12 q 4 weeks Hematology/Oncology Comment on above: B12 q 4 weeks Start: 2023 RSV Vaccine (1 - 1-d ose 60+ series) RSV Vaccine (1 - 1-dose 60+ series) [facility] Start: 10-31-2023 End: 10-31-2023 Nursing evaluation of patient and report 10/31/2023 2:00 PM EDT Nurse Visit Hematology/Oncology [address] [place] [address] [place] [address] Mervin Yoo Nurse Edmund [address] [place] [address] B12 q 4 weeks Hematology/Oncology Comment on above: B12 q 4 weeks Start: 07-08-2023 [facility] Start: 06-17-2023 Radionuclide myocard ial perfusion stress study NM talha perf SPECT rest & str [facility] Start: 06-17-2023 SPECT Heart perfusio n at rest and W stress and W radionuclide IV [facility] Start: 05-16-2023 Behavioral Health Screening Behavioral Health Screening [facility] Start: 05-16-2023 Depression Assessment Depression Ass essment [facility] Start: 03-16-2023 Screening for malign ant neoplasm of breast [facility] Start: 02-28-2023 End: 02-08-2024 CBC W Auto Differential panel - Blood CBC + DIFF Lab Routine Iron deficiency anemia secondary to inadequate dietary iron intake Expected: 02/28/2023 (Approximate), Expires: 02/08/2024 [facility] Work Phone: Comment on above: Expected: 02/28/2023 (Approximate), Expires: 02/08/2024 Start: 02-28-2023 End: 02-08-2024 Cobalamin (Vitamin B12) [Mass/volume] in Serum or Plasma VITAMIN B12 BLOOD Lab Routine Iron deficiency anemia secondary to inadequate dietary iron intake Expected: 02/28/2023 (Approximate), Expires: 02/08/2024 [facility] Work Phone: Comment on above: Expected: 02/28/2023 (Approximate), Expires: 02/08/2024 Start: 02-28-2023 End: 02-08-2024 Comprehensive metabolic 2000 panel - Serum or Plasma COMP METABOLIC PANEL Lab Routine Iron deficiency anemia secondary to inadequate dietary iron intake Expected: 02/28/2023 (Approximate), Expires: 02/08/2024 [facility] Work Phone: Comment on above: Expected: 02/28/2023 (Approximate), Expires: 02/08/2024 Start: 02-28-2023 End: 02-08-2024 Ferritin [Mass/volume] in Serum or Plasma FERRITIN BLD Lab Routine Iron deficiency anemia secondary to inadequate dietary iron intake Expected: 02/28/2023 (Approximate), Expires: 02/08/2024 [facility] Work Phone: Comment on above: Expected: 02/28/2023 (Approximate), Expires: 02/08/2024 Start: 02-28-2023 End: 02-08-2024 Folate [Mass/volume] in Serum or Plasma FOLATE SERUM Lab Routine Iron deficiency anemia secondary to inadequate dietary iron intake Expected: 02/28/2023 (Approximate), Expires: 02/08/2024 [facility] Work Phone: Comment on above: Expected: 02/28/2023 (Approximate), Expires: 02/08/2024 Start: 02-28-2023 End: 02-08-2024 Iron and Iron binding capacity panel - Serum or Plasma IRON + TIBC Lab Routine Iron deficiency anemia secondary to inadequate dietary iron intake Expected: 02/28/2023 (Approximate), Expires: 02/08/2024 [facility] Work Phone: Comment on above: Expected: 02/28/2023 (Approximate), Expires: 02/08/2024 Start: 01-14-2023 Covid-19 Vaccine () Covid-19 Vaccine () [facility] Start: 01-14-2023 Influenza vaccination C [facility] Start: 05-16-2022 DEPRESSION ASSESSMENT DEPRESSION ASS ESSMENT [facility] Start: 11-21-2013 SHINGRIX VACCINE (1 of 2) SHINGRIX VACCINE (1 of 2) [facility] Start: 11-21-2008 COLOGUARD (FIT-DNA) COLOGUARD (FIT-D NA) [facility] Start: 11-21-2008 Colonoscopy COLONOSCOPY [facility] Start: 11-21-2008 COLORECTAL CANCER SCREENING COLORECTAL CANCER SCREENING [facility] Start: 11-21-[address] COLONOGRAPHY [facility] Start: 11-21-2008 DIABETES SCREEN DIABETES SCREEN [facility] Start: 11-21-2008 FECAL OCCULT BLOOD FECAL OCCULT BLOO D [facility] Start: 11-21-2008 Lipid 1996 panel - S chris or Plasma Lipid Screening [facility] Start: 11-21-2008 Lipid panel Lipid Screening [facility] Start: 11-21-2008 LIPID SCREEN LIPID SCREEN [facility] Start: 11-21-2008 Screening for malign ant neoplasm of colon [facility] Start: 11-21-2008 SIG[facility]OSCOPY [facility] Start: 2003 Mammography [facility] Start: 11-21-1993 HPV TESTING HPV TESTING [facility] Start: 11-21-1993 Screening for malign ant neoplasm of cervix HPV Testing [facility] Start: 11-21-1984 PAP TESTING PAP TESTING [facility] Start: 11-21-1984 Screening for malign ant neoplasm of cervix [facility] Start: 11-21-1982 Urine microalbumin profile [facility] Start: 11-21-1981 Anxiety Screening Anxiety Screening [facility] Start: 11-21-1981 Depression Screening Depression Scre ening [facility] Start: 11-21-1981 HEPATITIS C SCREENING HEPATITIS C [facility] Start: 11-21-1981 Hepatitis C screening Hepatitis C [facility] Start: 11-21-1981 HIV SCREENING HIV SCREENING [facility] Start: 11-21-1981 HIV screening HIV Screening [facility] Start: 05-24-1964 COVID-19 VACCINE (#1) COVID-19 VACCI NE (#1) [facility] Start: 1963 Screening for malign ant neoplasm of colon [facility] End: 01-26-2024 CBC W Auto Differential panel - Blood CBC + DIFF Lab Routine Anemia, unspecified type Every 6 weeks for 4 Occurrences starting 01/26/2023 until 01/26/2024, 1 completed [facility] Work Phone: Comment on above: Every 6 weeks for 4 Occurrences starting 01/26/2023 until 01/26/2024, 1 completed End: 01-26-2024 Cobalamin (Vitamin B12) [Mass/volume] in Serum or Plasma VITAMIN B12 BLOOD Lab Routine Anemia, unspecified type Every 6 weeks for 4 Occurrences starting 01/26/2023 until 01/26/2024, 1 completed [facility] Work Phone: Comment on above: Every 6 weeks for 4 Occurrences starting 01/26/2023 until 01/26/2024, 1 completed End: 01-26-2024 Comprehensive metabolic 2000 panel - Serum or Plasma COMP METABOLIC PANEL Lab Routine Anemia, unspecified type Every 6 weeks for 4 Occurrences starting 01/26/2023 until 01/26/2024, 1 completed [facility] Work Phone: Comment on above: Every 6 weeks for 4 Occurrences starting 01/26/2023 until 01/26/2024, 1 completed Comprehensive metabo lic 2000 panel - Serum or Plasma [facility] DBT Breast - bilater al screening Bilateral screening mammogram with tomosynthesis Imaging Routine Other screening mammogram Ordered: 03/22/2024 [facility] Work Phone: Comment on above: Ordered: 03/22/2024 End: 01-26-2024 Ferritin [Mass/volume] in Serum or Plasma FERRITIN BLD Lab Routine Anemia, unspecified type Every 6 weeks for 4 Occurrences starting 01/26/2023 until 01/26/2024, 1 completed [facility] Work Phone: Comment on above: Every 6 weeks for 4 Occurrences starting 01/26/2023 until 01/26/2024, 1 completed End: 01-26-2024 Folate [Mass/volume] in Serum or Plasma FOLATE SERUM Lab Routine Anemia, unspecified type Every 6 weeks for 4 Occurrences starting 01/26/2023 until 01/26/2024, 1 completed [facility] Work Phone: Comment on above: Every 6 weeks for 4 Occurrences starting 01/26/2023 until 01/26/2024, 1 completed End: 01-26-2024 Iron and Iron binding capacity panel - Serum or Plasma IRON + TIBC Lab Routine Anemia, unspecified type Every 6 weeks for 4 Occurrences starting 01/26/2023 until 01/26/2024, 1 completed [facility] Work Phone: Comment on above: Every 6 weeks for 4 Occurrences starting 01/26/2023 until 01/26/2024, 1 completed Microalbumin [Mass/volume] in Urine [facility] Patient referral [facility] Work Phone: End: 01-26-2024 RETIC COUNT RETIC COUNT Lab Routine Anemia, unspecified type Every 6 weeks for 4 Occurrences starting 01/26/2023 until 01/26/2024, 1 completed [facility] Work Phone: Comment on above: Every 6 weeks for 4 Occurrences starting 01/26/2023 until 01/26/2024, 1 completed [facility] Immunizations Immunization Date Immunization Notes Care Provider Fa [facility] 02-22-2023 Influenza, injectabl e, Madin Lin Canine Kidney, preservative free, quadrivalent Jose Rose MD Work Phone: [facility] 02-22-2023 influenza virus vaccine, unspecified formulation Mervin Yoo Work Phone: [facility] 10-07-2020 COVID-19 [id number] (Jonny) MD Klaudia Gomez Work Phone: [facility] Payers Date Payer Category Payer Self-pay [id number] 2011 [facility] [id number] 2011 Unknown [id number]. [id number] 1963 Unknown [id number] [id number]. 2.593 1963 Unknown [id number] 2.16.840.1.017921.3.579. 2.593 1963 Unknown [id number] 2.16.840.1.794463.3.579. 2.593 1963 Unknown [id number] 2.16.840.1.087991.3.579. 2.593 1963 Unknown [id number] 2.16.840.1.632295.3.579. 2.1286 1963 Unknown [id number] 2.16.840.1.755864.3.579. 2.1259 1963 Unknown [id number] 2.16.840.1.199930.3.579. 2.1259 1963 Unknown [id number] 2.16.840.1.506516.3.579. 2.1259 1963 Unknown [id number] 2.16.840.1.025497.3.579. 2.1259 1959 [facility] [id number] Unknown [id number] 2.16.840.1.776565.3.579. 2.593 Unknown [id number] 2.16.840.1.495682.3.579. 2.531 Unknown [id number] 2.16.840.1.142019.3.579. 2.531 Unknown [id number] 2.16.840.1.656955.3.579. 2.531 Unknown [id number] 2.16.840.1.398749.3.579. 2.531 Unknown [id number] 2.16.840.1.439033.3.579. 2.531 Unknown [id number] 2.16.840.1.216328.3.579. 2.531 Social History Date Type Detail Facility Unknown if ever smoked [facility] Other Start: 01-26-2023 End: 10-31-2023 Sex Assigned At [facility] Tobacco smoking status [facility] Tobacco smoking consumption unknown [facility] Start: 01-21-2023 End: 10-31-2023 Alcohol intake Current drinker of alcohol (finding) [facility] Start: 1965 Sex Assigned At Not on file [facility] Start: 01-26-2023 End: 10-25-2023 Tobacco smoking status CTIS Never smoked tobacco [facility] Start: 01-26-2023 End: 10-25-2023 Tobacco use and exposure Smokeless tobacco non-user [facility] Start: 01-26-2023 End: 10-31-2023 History of Social function [facility] National Score (1-100), lower number is lower risk 78 [facility] Start: 1965 Sex Assigned At Female F [facility] Start: 01-28-2023 Alcohol Comment 1-2 drinks 2-4 x a month in the past year [facility] Healthcare Medical Equipment Procedure Code Equipment Code Equipment [...] Facility 07-08-2023 Functional status Patient at Baseline [facility] Work Phone: Mental Status Date Assessment Result Facility 07-08-2023 Cognitive function Cognitive Sta tus Patient at Baseline [facility] Work Phone: Clinical Notes 08-23-2022 to 04-23-2024 Pura Lara, DO - 04/23/2024 2:30 PM Mulugeta Lara, DO - 04/11/2024 10:30 AM Mare Chase LSW - 03/26/2024 3:07 PM Mulugeta Lara, DO - 03/22/2024 1:45 PM EST Note Date & Type Note Facility 04-23-2024 History of Present illness Narrative Images from the original note were not included. Subjective Jeannette Hurtado is a 58 y.o. female HPI Chief Complaint Patient presents with Pessary Check Patient here for 2 week pessary check. Patient has larger pessary, Incontinence dish #5 inserted. Patient states that her symptoms are improving with this pessary and is satisfied. She no longer has to wear a diaper . Urine sample collected. Past Medical History: Diagnosis Date Adult hypothyroidism (CMS/HCC) Adult hypothyroidism (CMS/HCC) Anginal pain (CMS/HCC) Anxiety Arthritis Arthritis Asthma (CMS/HCC) 2014 Asymptomatic menopausal state Back pain Breast cancer screening by mammogram Chronic sinusitis Coronary artery disease (CMS/HCC) 2023 Cubital tunnel syndrome on right Dermatitis DJD (degenerative joint disease) Elevated fasting glucose Elevated glucose Encounter for gynecological examination (general) (routine) without abnormal findings Foot fracture, left Occult GERD (gastroesophageal reflux disease) History of cardiac cath History of medical problems broken L heel History of medical problems thyroid problems Hypercholesteremia (CMS/HCC) Hyperglycemia due to type 2 diabetes mellitus (CMS/HCC) Incontinence Iron deficiency anemia LGSIL on Pap smear of cervix Menopause ovarian failure 2016 Migraine headache (CMS/HCC) Murmur Obesity (BMI 30-39.9) Pap smear for cervical cancer screening 03/16/[address] omalley Post menopausal syndrome Post-menopause bleeding Sleep apnea Urinary incontinence 2023 Urinary tract infection 2022 Past Surgical History: Procedure Laterality Date ANKLE SURGERY Left 2013 ankle tendon repair CARDIAC CATHETERIZATION 06/2023 2 stents placed CAST / SPLINT / FX Left casted- broken L heel COLONOSCOPY DILATION AND CURETTAGE 2017 DILATION AND CURETTAGE OF UTERUS 2017 OTHER SURGICAL HISTORY 2007 sweat gland removed OTHER SURGICAL HISTORY H/O heart artery stent OTHER SURGICAL HISTORY percutaneou transluminal coronary angioplasty VAGINAL DELIVERY Family History Problem Relation Name Age of Onset Hypertension Mother kelvin paul jordanrst Glaucoma Mother kelvin paul [place] Macular degeneration Mother kelvin paul [place] Osteoarthritis Mother kelvin paul [place] Asthma Mother kelvin paul [place] Hypertension Father kalpana zhang Heart disease Father kalpana zhang Other (CABG) Father kalpana zhang Coronary artery disease Father kalpana zhang Other (History of heart arery stent) Father kalpana jodranrst Pancreatic cancer Father kalpana [place] Cancer Father kalpana [place] Heart failure Father kalpana jordanrst Glaucoma Sister Heart disease Brother Hypertension Sibling Breast cancer Mother's Sister wan edwards Breast cancer Father's Sister jean marie [place] Hypertension Brother Chilo gonzalest Social History Tobacco Use Smoking status: Never Smokeless tobacco: Never Substance Use Topics Alcohol use: Yes Alcohol/week: 4.0 standard drinks of alcohol Types: 1 Glasses of wine, 1 Cans of beer, 2 Shots of liquor per week Comment: 1-2 drinks 2-4 x a month in the past year Drug use: Never OB History Para Term AB Living 2 2 2 SAB IAB Ectopic Multiple Live Births # Outcome Date GA Lbr Mitch/2nd Weight Sex Type Anes PTL Lv 2 Para 1 Para Allergies Allergen Reactions Latex Hives, Rash and Unknown Prochlorperazine Anxiety, Hives, Palpitations, Rash and Unknown Current Outpatient Medications on File Prior to Visit Medication Sig Dispense Refill albuterol HFA 90 mcg/act inhaler Inhale 2 puffs every 6 (six) hours if needed ascorbic acid (Vitamin C) 500 mg/mL oral liquid Take by mouth. Aspirin Low Dose 81 MG chewable tablet Chew 81 mg 1 (one) time atorvastatin (Lipitor) 20 MG tablet 1 (one) time each day at the same time. B Complex Vitamins (vitamin B complex) tablet as directed Orally celecoxib (CeleBREX) 200 MG capsule Take 200 mg by mouth Daily Contour Next Test test strip Eucalyptus Oil oil as directed folic acid (Folvite) 1 MG tablet Take 1 mg by mouth in the morning. Homeopathic Products (Frankincense Uplifting) oil as directed Inhalation losartan (Cozaar) 25 MG tablet Take 25 mg by mouth Daily metFORMIN (Glucophage) 1000 MG tablet Take 1,000 mg by mouth in the morning and 1,000 mg in the evening. Take with meals. Microlet Lancets misc Multiple Vitamins-Minerals (Multi Complete) capsule Orally nitroglycerin (Nitrostat) 0.[address] 0.4 mg under the tongue Daily as needed Plavix 75 MG tablet Take 75 mg by mouth in the morning. sertraline (Zoloft) 25 MG tablet Take 25 mg by mouth in the morning. solifenacin (VESIcare) 10 MG tablet Take 1 tablet (10 mg) by mouth Daily Swallow tablet whole; do not crush, chew, or split. 30 tablet 5 No current facility-administered medications on file prior to visit. Review of Systems Constitutional: Negative for chills and fever. Respiratory: Negative for shortness of breath. Cardiovascular: Negative for chest pain. Gastrointestinal: Negative for nausea and vomiting. Genitourinary: Negative for dysuria, pelvic pain, vaginal bleeding, vaginal discharge and vaginal pain. Neurological: Negative for dizziness and headaches. Objective BP 140/78 Wt 198 lb LMP (LMP Unknown) BMI 31.01 kg/m Physical Exam Constitutional: Appearance: Normal appearance. Genitourinary: Genitourinary Comments: Pessary in appropriate position. Pessary removed, cleansed, and re-inserted without difficulty. Pessary remained in place with valsalva Right Labia: No lesions. Left Labia: No lesions. Neurological: Mental Status: She is alert. Skin: General: Skin is warm and dry. Psychiatric: Mood and Affect: Mood normal. Assessment/Plan 1. Encounter for pessary maintenance (Primary) Continue use current pessary, Incontinence dish #5 pessary inserted. Urinary or bowel retention, vaginal bleeding or pain precautions discussed. - Urine dip 2. Mixed urge and stress incontinence Improving urge incontinence, continue current treatment - Urine dip 3. Cystocele, midline - Urine dip documented in this encounter [facility] 04-11-2024 History of Present illness Narrative Images from the original note were not included. Subjective Jeannette Hurtado is a 58 y.o. female HPI Chief Complaint Patient presents with Pessary Check Patient here for 2 week pessary maintenance follow up. She has Incontinence ring #3 inserted. Denies discharge or odor. Urine sample collected. Patient states that she only a little better, still wearing a diaper. Past Medical History: Diagnosis Date Adult hypothyroidism (CMS/HCC) Adult hypothyroidism (CMS/HCC) Anginal pain (CMS/HCC) Anxiety Arthritis Arthritis Asthma (CMS/HCC) 2015 Asymptomatic menopausal state Back pain Breast cancer screening by mammogram Chronic sinusitis Coronary artery disease (CMS/HCC) 2023 Cubital tunnel syndrome on right Dermatitis DJD (degenerative joint disease) Elevated fasting glucose Elevated glucose Encounter for gynecological examination (general) (routine) without abnormal findings Foot fracture, left Occult GERD (gastroesophageal reflux disease) History of cardiac cath History of medical problems broken L heel History of medical problems thyroid problems Hypercholesteremia (CMS/HCC) Hyperglycemia due to type 2 diabetes mellitus (CMS/HCC) Incontinence Iron deficiency anemia LGSIL on Pap smear of cervix Menopause ovarian failure 2016 Migraine headache (CMS/HCC) Murmur Obesity (BMI 30-39.9) Pap smear for cervical cancer screening 03/16/[address] omalley Post menopausal syndrome Post-menopause bleeding Sleep apnea Urinary incontinence 2023 Urinary tract infection 2022 Past Surgical History: Procedure Laterality Date ANKLE SURGERY Left 2013 ankle tendon repair CARDIAC CATHETERIZATION 06/2023 2 stents placed CAST / SPLINT / FX Left casted- broken L heel COLONOSCOPY DILATION AND CURETTAGE 2017 DILATION AND CURETTAGE OF UTERUS 2017 OTHER SURGICAL HISTORY 2007 sweat gland removed OTHER SURGICAL HISTORY H/O heart artery stent OTHER SURGICAL HISTORY percutaneou transluminal coronary angioplasty VAGINAL DELIVERY Family History Problem Relation Name Age of Onset Hypertension Mother kelvin paul zhang Glaucoma Mother kelvin paul zhang Macular degeneration Mother kelvin paul zhang Osteoarthritis Mother kelvin paul zhang Asthma Mother kelvinyadira zhang Hypertension Father kalpana zhang Heart disease Father kalpana zhang Other (CABG) Father kalpana zhang Coronary artery disease Father kalpana zhang Other (History of heart arery stent) Father kalpana zhang Pancreatic cancer Father kalpana zhang Cancer Father kalpana zhang Heart failure Father kalpana zhang Glaucoma Sister Heart disease Brother Hypertension Sibling Breast cancer Mother's Sister wan edwards Breast cancer Father's Sister jean marie law Hypertension Brother Chilo zhang Social History Tobacco Use Smoking status: Never Smokeless tobacco: Never Substance Use Topics Alcohol use: Yes Alcohol/week: 4.0 standard drinks of alcohol Types: 1 Glasses of wine, 1 Cans of beer, 2 Shots of liquor per week Comment: 1-2 drinks 2-4 x a month in the past year Drug use: Never OB History Para Term AB Living 2 2 2 SAB IAB Ectopic Multiple Live Births # Outcome Date GA Lbr Mitch/2nd Weight Sex Type Anes PTL Lv 2 Para 1 Para Allergies Allergen Reactions Latex Hives, Rash and Unknown Prochlorperazine Anxiety, Hives, Palpitations, Rash and Unknown Current Outpatient Medications on File Prior to Visit Medication Sig Dispense Refill albuterol HFA 90 mcg/act inhaler Inhale 2 puffs every 6 (six) hours if needed ascorbic acid (Vitamin C) 500 mg/mL oral liquid Take by mouth. Aspirin Low Dose 81 MG chewable tablet Chew 81 mg 1 (one) time atorvastatin (Lipitor) 20 MG tablet 1 (one) time each day at the same time. B Complex Vitamins (vitamin B complex) tablet as directed Orally celecoxib (CeleBREX) 200 MG capsule Take 200 mg by mouth Daily Contour Next Test test strip Eucalyptus Oil oil as directed folic acid (Folvite) 1 MG tablet Take 1 mg by mouth in the morning. Homeopathic Products (Frankincense Uplifting) oil as directed Inhalation losartan (Cozaar) 25 MG tablet Take 25 mg by mouth Daily metFORMIN (Glucophage) 1000 MG tablet Take 1,000 mg by mouth in the morning and 1,000 mg in the evening. Take with meals. Microlet Lancets misc Multiple Vitamins-Minerals (Multi Complete) capsule Orally nitroglycerin (Nitrostat) 0.[address] 0.4 mg under the tongue Daily as needed Plavix 75 MG tablet Take 75 mg by mouth in the morning. sertraline (Zoloft) 25 MG tablet Take 25 mg by mouth in the morning. No current facility-administered medications on file prior to visit. Review of Systems Constitutional: Negative for chills and fever. Respiratory: Negative for shortness of breath. Cardiovascular: Negative for chest pain. Gastrointestinal: Negative for nausea and vomiting. Genitourinary: Negative for dysuria, pelvic pain, vaginal bleeding, vaginal discharge and vaginal pain. Neurological: Negative for dizziness and headaches. Objective BP 146/78 Wt 199 lb LMP (LMP Unknown) BMI 31.17 kg/m Physical Exam Constitutional: Appearance: Normal appearance. Genitourinary: Genitourinary Comments: Pessary in appropriate position, however knob is slightly too proximal. Pessary removed. Larger Incontinence dish #5 inserted without difficulty. Pessary remained in place with valsalva Right Labia: No lesions. Left Labia: No lesions. Neurological: Mental Status: She is alert. Skin: General: Skin is warm and dry. Psychiatric: Mood and Affect: Mood normal. Assessment/Plan 1. Encounter for pessary maintenance (Primary) Larger pessary, Incontinence dish #5 pessary inserted. Urinary or bowel retention, vaginal bleeding or pain precautions discussed. - Urine dip 2. Mixed urge and stress incontinence Medical treatment discussed. Vesicare Rx sent to pharmacy. Possible side effects discussed. Will reassess at the next office visit - Urine dip - solifenacin (VESIcare) 10 MG tablet; Take 1 tablet (10 mg) by mouth Daily Swallow tablet whole; do not crush, chew, or split. Dispense: 30 tablet; Refill: 5 3. Cystocele, midline - Urine dip documented in this encounter [facility] 03-26-2024 Note HNO ID: [id number] Author: MARE HUSAIN LSW Service: ? Author Type: Supervisor Blasting Type: Progress Notes Filed: 03/26/2024 15:24 Note Text: Patient's name appears on the [facility] Time Treatment List for a non oncology.treatment. No psychosocial assessment is indicated. CARSON Velez Goals of Care Advance Directives are not file. SIGNATURE: KASEY Velez PATIENT NAME: Jeannette Hurtado DATE: March 26, 2024 TIME: 3:23 PM PAGER/CONTACT #: [facility] 03-26-2024 History of Present illness Narrative Patient's name appears on the [facility] Time Treatment List for a non oncology.treatment. No psychosocial assessment is indicated. CARSON Velez Goals of Care Advance Directives are not file. SIGNATURE: KASEY Velez PATIENT NAME: Jeannette Hurtado DATE: March 26, 2024 TIME: 3:23 PM PAGER/CONTACT #: documented in this encounter [facility] 03-22-2024 History of Present illness Narrative Associated Order(s): Pessary Post-Procedure Diagnose(s): Cystocele, midline; Mixed urge and stress incontinence; Fitting and adjustment of pessary Images from the original note were not included. Subjective Jeannette Hurtado is a 58 y.o. female Gynecologic Exam The patient's pertinent negatives include no pelvic pain or vaginal discharge. Pertinent negatives include no chills, dysuria, fever, headaches, nausea or vomiting. Chief Complaint Patient presents with Gynecologic Exam New patient here for yearly. Patient reports that she leaks urine when she laughs, coughs, sneezing and walking. She states that she has to wear a diaper because she can't control her bladder anymore. Her symptoms have got worse over the year. Mammogram order sent to [facility]. Went through menopause late 40's, Never been on HRT before. Last pap 02/18/23 NILM, HPV neg. Had hx of abnormal pap before. Colonoscopy 2022-negative. Patient reports vaginal dryness, would like to discuss treatment options Past Medical History: Diagnosis Date Adult hypothyroidism (CMS/HCC) Adult hypothyroidism (CMS/HCC) Anginal pain (CMS/HCC) Anxiety Arthritis Arthritis Asthma (CMS/HCC) 2014 Asymptomatic menopausal state Back pain Breast cancer screening by mammogram Chronic sinusitis Coronary artery disease (CMS/HCC) 2023 Cubital tunnel syndrome on right Dermatitis DJD (degenerative joint disease) Elevated fasting glucose Elevated glucose Encounter for gynecological examination (general) (routine) without abnormal findings Foot fracture, left Occult GERD (gastroesophageal reflux disease) History of cardiac cath History of medical problems broken L heel History of medical problems thyroid problems Hypercholesteremia (CMS/HCC) Hyperglycemia due to type 2 diabetes mellitus (CMS/HCC) Incontinence Iron deficiency anemia LGSIL on Pap smear of cervix Menopause ovarian failure 2016 Migraine headache (CMS/HCC) Murmur Obesity (BMI 30-39.9) Pap smear for cervical cancer screening 03/16/[address] omalley Post menopausal syndrome Post-menopause bleeding Sleep apnea Urinary incontinence 2023 Urinary tract infection 2022 Past Surgical History: Procedure Laterality Date ANKLE SURGERY Left 2013 ankle tendon repair CARDIAC CATHETERIZATION 06/2023 2 stents placed CAST / SPLINT / FX Left casted- broken L heel COLONOSCOPY DILATION AND CURETTAGE 2017 DILATION AND CURETTAGE OF UTERUS 2017 OTHER SURGICAL HISTORY 2007 sweat gland removed OTHER SURGICAL HISTORY H/O heart artery stent OTHER SURGICAL HISTORY percutaneou transluminal coronary angioplasty VAGINAL DELIVERY Family History Problem Relation Name Age of Onset Hypertension Mother kelvin paul leatha Glaucoma Mother kelvin paul leatha Macular degeneration Mother kelvin paul leatha Osteoarthritis Mother kelvin paul leatha Asthma Mother kelvin paul leatha Hypertension Father kalpana gonzalest Heart disease Father kalpana zhang Other (CABG) Father kalpana gonzalest Coronary artery disease Father kalpana zhang Other (History of heart arery stent) Father kalpana gonzalest Pancreatic cancer Father kalpana gonzalest Cancer Father kalpana gonzalest Heart failure Father kalpana zhang Glaucoma Sister Heart disease Brother Hypertension Sibling Breast cancer Mother's Sister wan edwards Breast cancer Father's Sister jean marie law Hypertension Brother Chilo zhang Social History Tobacco Use Smoking status: Never Smokeless tobacco: Never Substance Use Topics Alcohol use: Yes Alcohol/week: 4.0 standard drinks of alcohol Types: 1 Glasses of wine, 1 Cans of beer, 2 Shots of liquor per week Comment: 1-2 drinks 2-4 x a month in the past year Drug use: Never OB History Para Term AB Living 2 2 2 SAB IAB Ectopic Multiple Live Births # Outcome Date GA Lbr Mitch/2nd Weight Sex Type Anes PTL Lv 2 Para 1 Para Allergies Allergen Reactions Latex Hives, Rash and Unknown Prochlorperazine Anxiety, Hives, Palpitations, Rash and Unknown Current Outpatient Medications on File Prior to Visit Medication Sig Dispense Refill Plavix 75 MG tablet Take 75 mg by mouth in the morning. albuterol HFA 90 mcg/act inhaler Inhale 2 puffs every 6 (six) hours if needed ascorbic acid (Vitamin C) 500 mg/mL oral liquid Take by mouth. Aspirin Low Dose 81 MG chewable tablet Chew 81 mg 1 (one) time atorvastatin (Lipitor) 20 MG tablet 1 (one) time each day at the same time. B Complex Vitamins (vitamin B complex) tablet as directed Orally celecoxib (CeleBREX) 200 MG capsule Take 200 mg by mouth Daily Contour Next Test test strip Eucalyptus Oil oil as directed folic acid (Folvite) 1 MG tablet Take 1 mg by mouth in the morning. Homeopathic Products (Frankincense Uplifting) oil as directed Inhalation losartan (Cozaar) 25 MG tablet Take 25 mg by mouth Daily metFORMIN (Glucophage) 1000 MG tablet Take 1,000 mg by mouth in the morning and 1,000 mg in the evening. Take with meals. Microlet Lancets misc Multiple Vitamins-Minerals (Multi Complete) capsule Orally nitroglycerin (Nitrostat) 0.[address] 0.4 mg under the tongue Daily as needed sertraline (Zoloft) 25 MG tablet Take 25 mg by mouth in the morning. [DISCONTINUED] famotidine (Pepcid) 20 MG tablet Take 1 tablet (20 mg) by mouth at bedtime 90 tablet 0 [DISCONTINUED] omeprazole (PriLOSEC) [address] capsule Take 1 capsule (40 mg) by mouth in the morning. Take before meals. Do not crush or chew.. 90 capsule 0 No current facility-administered medications on file prior to visit. Review of Systems Constitutional: Negative for chills and fever. Respiratory: Negative for shortness of breath. Cardiovascular: Negative for chest pain. Gastrointestinal: Negative for nausea and vomiting. Genitourinary: Negative for dysuria, pelvic pain and vaginal discharge. Neurological: Negative for dizziness and headaches. Objective BP 148/82 Wt 200 lb LMP (LMP Unknown) BMI 31.32 kg/m Physical Exam Constitutional: Appearance: Normal appearance. Genitourinary: No lesions in the vagina. Right Labia: No lesions. Left Labia: No lesions. No vaginal discharge. Anterior vaginal prolapse present. Right Adnexa: not tender and no mass present. Left Adnexa: not tender and no mass present. No cervical lesion. Uterus is not tender. Uterus is midaxial. Urethral hypermobility present. No urethral stress urinary incontinence with cough stress test present. Neurological: Mental Status: She is alert. Skin: General: Skin is warm and dry. Psychiatric: Mood and Affect: Mood normal. Patient ID: Jeannette Hurtado is a 58 y.o. female. Pessary Date/Time: 03/22/2024 2:56 PM Performed by: Pura Lara DO Authorized by: Pura Lara DO Consent: Procedural risks discussed: yes Relevant documents present and verified: yes Patient agrees, verbalizes understanding, and wants to proceed: yes Consent given by: Patient Indication: Indication for pessary: cystocele and incontinence Procedure: Pessary type: Incontinence dish w/ support Pessary size: 3 Outcomes: Patient tolerance of procedure: Tolerated well, no immediate complications Post-procedure education provided: yes Pessary maintenance plan: To return to the office in 2 weeks Reviewed by: provider Comments: Procedure comments: Incontinence dish #3 inserted. Pessary remained in place with valsalva Assessment/Plan 1. Mixed urge and stress incontinence (Primary) Discussed treatment/management options: Continue observation vs. Pelvic floor therapy vs. Bladder retraining vs. Medical treatment vs. Surgical intervention 2. Cystocele, midline Discussed findings. Stressed the importance of complete bladder emptying and avoiding long periods between voiding. Patient voiced understanding. Treatment/management options discussed: continue observation vs. Pessary use vs. Surgical treatment 3. Fitting and adjustment of pessary Patient voiced interest in trying pessary use. Incontinence ring #3 inserted. Urinary or bowel retention, vaginal bleeding or pain precautions discussed. 4. Other screening mammogram Mammogram order given to patient. Patient to schedule appointment - Bilateral screening mammogram with tomosynthesis documented in this encounter [facility] 03-16-2024 Miscellaneous Notes Patient has been scheduled for Venofer x5 doses. Also sent patient a [employer] message. She is all set, Thanks! Tran [place]amo Orders are in Maite Merritt PA-C I'm not seeing Venofer orders placed or to begin an insurance auth. Can you verify orders have been placed? Tran Alamo Pt aware and agreeable to plan of care/IV venofer x 5 doses. Pt denies questions, needs or concerns at this time; will await scheduling for appts. Lashanda/Kristen: please call to schedule Kendal Sparks RN ----- Message from Maite Merritt PA-C sent at 03/15/2024 11:00 AM EDT ----- Please call with low iron levels which may be causing her fatigue. Offer Venofer 200 mg IVP x 5 doses. documented in this encounter [facility] 03-16-2024 Telephone encounter Note Patient has been scheduled for Venofer x5 doses. Also sent patient a [employer] message. She is all set, Thanks! Tran Alamo T [facility] 03-16-2024 Telephone encounter Note Orders are in Maite Merritt PA-C [facility] Work Phone: 03-16-2024 Telephone encounter Note I'm not seeing Venofer orders placed or to begin an insurance auth. Can you verify orders have been placed? Tran Cally T [facility] 03-15-2024 Telephone encounter Note Pt aware and agreeable to plan of care/IV venofer x 5 doses. Pt denies questions, needs or concerns at this time; will await scheduling for appts. Lashanda/Kristen: please call to schedule Kendal Sparks RN [facility] 03-15-2024 Telephone encounter Note ----- Message from Maite Merritt PA-C sent at 03/15/2024 11:00 AM EDT ----- Please call with low iron levels which may be causing her fatigue. Offer Venofer 200 mg IVP x 5 doses. [facility] 03-14-2024 Nurse Note Patient Identification confirmed: yes. Injection given and documented on JUL per provider order. Mariela Sarmiento MA [facility] 03-14-2024 Nurse Note Patient Identification confirmed: yes. Injection given and documented on JUL per provider order. Mariela Sarmiento MA documented in this encounter [facility] 03-14-2024 Nurse Note Patient states that she is always tired she was doing better but over last 2 weeks she feels worse. Mariela Sarmiento MA [facility] 03-14-2024 Nurse Note Patient states that she is always tired she was doing better but over last 2 weeks she feels worse. Mariela Sarmiento MA documented in this encounter [facility] 03-14-2024 History of Present illness Narrative Images from the original note were not included. NAME: GenesisJeannette CLINIC NO.: [id number] DATE OF SERVICE: March 14, 2024 (Sari) Some elements in this clinic note that are critical to medical decision making have been carefully reviewed and included from a prior clinic note dated: December 21, 2023 (José) Referring Provider: Dr. Klaudia Gomez [...] test and now has two coronary stents. Patient will receive B12 today and continue receiving it every 4 weeks. Due to patient's increasing fatigue, a TSH was drawn. She has not taken levothyroxine in over 7 years, as her new PCP told her she did not need it anymore. Pending iron studies and TSH, we will call patient if she needs iron infusion or refer to PCP for thyroid levels. She will continue her folic acid supplement and return to office in 12 weeks with labs. HPI: CASE HISTORY: Reverse Chronological Order 01/05/2023 - CBC 9.2 > 11.2 / 35.6 < 277 11/12/2022 - Colonoscopy is negative. Recommended colonoscopy 10 years. Updated Visit, March 14, 2024: Patient is here today reporting extreme fatigue. Still using CPAP, wakes up around 3-4 times a night. She says the past two months her fatigue has been worse, gets home from work and has no energy. She has been craving ice recently. Patient states she was on levothyroxine for years, got a new PCP who took her off of it and has not been taking it for 7 years. Patient has had frequent headaches due to stress at work, gotten worse the past two months. She is still tolerating folic acid and B12. Updated Visit, December 21, 2023: Doing better [...] replacement / balancing that is offered by [employer]. Updated Visit, July 11, 2023: Jeannette Hurtado [...] PERFORMANCE STATUS: 1 PHYSICAL EXAMINATION: Vitals: BP 141/74 Pulse 68 Temp (Src) 97.5 (Temporal) Resp 16 Ht 5' 5.984 (1.68m) Wt 203 lb 4.2 oz (92.2kg) SpO2 98% BMI 32.82 kg/(m^2). Body surface area is 2.07 meters squared. General: Alert and oriented, no distress, pleasant and cooperative. Heart: Regular, normal S1 and S2, no murmurs, rubs, or gallops Lungs: Clear to auscultation bilaterally Abdomen: Benign Extremities: Feet/ankles without edema, posterior tibial pulses full and symmetrical ALLERGIES: ALLERGIES Allergen Reactions Compazine [Prochlor* Latex Unknown MEDICATIONS: folic acid 1 mg tablet Take 1 tablet by mouth once daily. celecoxib (CELEBREX) 200 mg capsule aspirin, enteric [...] breath. LABORATORY VALUES: WBC (k/uL) Date Value 03/14/2024 10.30 RBC (m/uL) Date Value 03/14/2024 4.06 Hemoglobin (g/dL) Date Value 03/14/2024 12.4 Hematocrit (%) Date Value 03/14/2024 37.7 MCV (fL) Date Value 03/14/2024 92.9 MCH (pg) Date Value 03/14/2024 30.5 MCHC (g/dL) Date Value 03/14/2024 32.9 RDW-CV (%) Date Value 03/14/2024 13.2 Platelet Count (k/uL) Date Value 03/14/2024 247 MPV (fL) Date Value 03/14/2024 9.6 Glucose (mg/dL) Date Value 03/14/2024 107 (H) BUN (mg/dL) Date Value 03/14/2024 18 Creatinine (mg/dL) Date Value 03/14/2024 0.89 Sodium (mmol/L) Date Value 03/14/2024 138 Potassium (mmol/L) Date Value 03/14/2024 4.4 Chloride (mmol/L) Date Value 03/14/2024 100 CO2 (mmol/L) Date Value 03/14/2024 26 Protein, Total (g/dL) Date Value 03/14/2024 7.6 Albumin (g/dL) Date Value 03/14/2024 4.7 Calcium, Total (mg/dL) Date Value 03/14/2024 9.7 Alkaline Phosphatase (U/L) Date Value 03/14/2024 117 Bilirubin, Total (mg/dL) Date Value 03/14/2024 0.3 AST (U/L) Date Value 03/14/2024 31 ALT (U/L) Date Value 03/14/2024 23 DIAGNOSIS: (D50.8) Iron deficiency anemia secondary to inadequate dietary iron intake (primary encounter diagnosis) Plan: LACTATE DEHYDROGENASE, COMPREHENSIVE METABOLIC PANEL, COMPLETE BLOOD COUNT AND DIFFERENTIAL, FERRITIN, IRON AND TIBC, RETICULOCYTE COUNT, VITAMIN B12, FOLATE, SERUM (D53.1) Megaloblastic anemia due to vitamin B12 deficiency Plan: LACTATE DEHYDROGENASE, COMPREHENSIVE METABOLIC PANEL, COMPLETE BLOOD COUNT AND DIFFERENTIAL, FERRITIN, IRON AND TIBC, RETICULOCYTE COUNT, VITAMIN B12, FOLATE, SERUM (E53.8) Folate deficiency Plan: LACTATE DEHYDROGENASE, COMPREHENSIVE METABOLIC PANEL, COMPLETE BLOOD COUNT AND DIFFERENTIAL, FERRITIN, IRON AND TIBC, RETICULOCYTE COUNT, VITAMIN B12, FOLATE, SERUM (R53.81, R53.83) Malaise and fatigue Plan: THYROID STIMULATING HORMONE, THYROID STIMULATING HORMONE PAST MEDICAL HISTORY Diagnosis Date Anemia Anxiety Elevated glucose Hypercholesteremia Hypothyroidism Iron deficiency anemia secondary to inadequate dietary iron intake 02/07/2023 Migraines PAST SURGICAL HISTORY Procedure Laterality Date COLONOSCOPY 10/2022 PAST SURGICAL HISTORY OF Bilateral sweat glands removed PAST SURGICAL HISTORY OF Left Foot tendon x2 Social History Tobacco Use Smoking status: Never Smokeless tobacco: Never Vaping Use Vaping status: Never Used Substance Use Topics Alcohol use: Yes Drug use: Never FAMILY HISTORY Problem Relation Age of Onset Hypertension Mother Mental illness Mother Cancer Father Hypertension Father Heart disease Father I spent a total of 21 minutes on the date of the service which included preparing to see the patient, [id number] patient care, completing clinical documentation, performing a medically appropriate examination, counseling and educating the patient/family/caregiver, ordering medications, tests, or procedures, independently interpreting results (not separately reported), communicating results to the patient/family/caregiver, and care coordination (not separately reported). MARCO A SevillaS2 The patient was seen and examined by me. The student's note was modified when appropriate. Maite Merritt PA-C Hematology and Oncology Services Provided at: [place], [place] CC: Klaudia Gomez MD [address] [place] [id number] documented in this encounter [facility] 03-14-2024 Note HNO ID: [id number] Author: MAITE MERRITT PA-C Service: ? Author Type: Physician Radial Drill [employer] Type: Progress Notes Filed: 03/14/2024 15:35 Note Text: NAME: Jeannette Hurtado [facility] NO.: [id number] DATE OF SERVICE: March 14, 2024 (Sari) Some elements in this clinic note that are critical to medical decision making have been carefully reviewed and included from a prior clinic note dated: December 21, 2023 (José) Referring Provider: Dr. Klaudia Gomez [...] test and now has two coronary stents. Patient will receive B12 today and continue receiving it every 4 weeks. Due to patient's increasing fatigue, a TSH was drawn. She has not taken levothyroxine in over 7 years, as her new PCP told her she did not need it anymore. Pending iron studies and TSH, we will call patient if she needs iron infusion or refer to PCP for thyroid levels. She will continue her folic acid supplement and return to office in 12 weeks with labs. HPI: CASE HISTORY: Reverse Chronological Order 01/05/2023 - CBC 9.2 > 11.2 / 35.6 < 277 11/12/2022 - Colonoscopy is negative. Recommended colonoscopy 10 years. Updated Visit, March 14, 2024: Patient is here today reporting extreme fatigue. Still using CPAP, wakes up around 3-4 times a night. She says the past two months her fatigue has been worse, gets home from work and has no energy. She has been craving ice recently. Patient states she was on levothyroxine for years, got a new PCP who took her off of it and has not been taking it for 7 years. Patient has had frequent headaches due to stress at work, gotten worse the past two months. She is still tolerating folic acid and B12. Updated Visit, December 21, 2023: Doing better [...] [facility]. Updated Visit, July 11, 2023: Jeannette Kennedy Hurtado returns for scheduled follow-up. Since her [...] discuss IV iron? Mechelle Gomez RN Jeannette A Hurtado returns for scheduled follow-up. She received [...] PERFORMANCE STATUS: 1 PHYSICAL EXAMINATION: Vitals: BP 141/74 Pulse 68 Temp (Src) 97.5 (Temporal) Resp 16 Ht 5' 5.984 (1.68m) Wt 203 lb 4.2 oz (92.2kg) SpO2 98% BMI 32.82 kg/(m2). Body surface area is 2.07 meters squared. General: Alert and oriented, no distress, pleasant and cooperative. Heart: Regular, rosa (more content not included)... [facility] 02-15-2024 Nurse Note Patient Identification confirmed: yes. Injection given and documented on MAR per provider order. Mariela Sarmiento MA [facility] [facility] 02-15-2024 Nurse Note Patient Identification confirmed: yes. Injection given and documented on MAR per provider order. Mariela Sarmiento MA documented in this encounter [facility] 02-13-2024 Telephone encounter Note scheduled [facility] 02-13-2024 Miscellaneous Notes scheduled Referral from Dr. Klaudia Gomez to Dr. Neves for GOAT DRIVER exam and urinary incontinence, NEW patient schedule in 1st available not back to back with NEW patient or procedure spot. documented in this encounter [facility] 02-09-2024 Telephone encounter Note Referral from Dr. Klaudia Gomez to Dr. Neves for GOAT DRIVER exam and urinary incontinence, NEW patient schedule in 1st available not back to back with NEW patient or procedure spot. [facility] 02-08-2024 Hospital Discharge instructions Ambulatory OrdersReferral to Gastroenterology Time Frame: 02/08/24, Location: None SelectedReferral to ART EDUCATION PROFESSOR Time Frame: 02/08/24, Location: None SelectedReferral to Orthopedics Time Frame: 02/08/24, Location: None Selected [facility] Work Phone: 01-18-2024 Nurse Note Patient Identification confirmed: yes. Injection given and documented on MAR per provider order. Katina Howe MA [facility] 12-21-2023 Nurse Note Patient Identification confirmed: yes. Injection given and documented on MAR per provider order. Dangelo Umanzor MA [facility] 12-21-2023 Nurse Note Patient Identification confirmed: yes. Injection given and documented on JUL per provider order. Dangelo Umanzor MA documented in this encounter [facility] 12-21-2023 Instructions Jose Rose MD - 12/21/2023 2:52 PM EDT B12 today and q 4 weeks Continue folic acid RTC in 12 weeks Labs same day documented in this encounter [facility] 12-21-2023 History of Present illness Narrative Images from the original note were not included. NAME: Cynthia Hurtadon CLINIC NO.: [id number] DATE OF SERVICE: December 21, 2023 (José) [...] replacement / balancing that is offered by [employer]. Updated Visit, July 11, 2023: Jeannette A Hurtado returns for scheduled follow-up. Since her [...] discuss IV iron? Mechelle Gomez RN Jeannette A Hurtado returns for scheduled follow-up. She received [...] which included preparing to see the patient, tujh-rd-cvgf patient care, completing clinical documentation, performing a medically appropriate examination, counseling and educating the patient/family/caregiver, ordering medications, tests, or procedures, independently interpreting results (not separately reported), communicating results to the patient/family/caregiver, and care coordination (not separately reported). Jose Rose MD, CPE Hematology and Oncology Services Provided at: [place], [place] CC: Klaudia Gomez MD [address] [place] [phone] documented in this encounter [facility] 12-21-2023 Note HNO ID: [id number] Author: JOSE ROSE MD Service: ? Author Type: Physician Type: Progress Notes Filed: 12/24/2023 12:21 Note Text: NAME: HurtadoJeannette CLINIC NO.: [id number] DATE OF SERVICE: December 21, 2023 (José) [...] [facility] Updated Visit, July 11, 2023: Jeannette Hurtado [...] by mouth. sonali (more content not included)... [facility] 11-28-2023 Nurse Note Patient Identification confirmed: yes. Injection given and documented on MAR per provider order. Mariela Sarmiento MA [facility] 11-28-2023 Nurse Note Patient Identification confirmed: yes. Injection given and documented on MAR per provider order. Mariela Sarmiento MA documented in this encounter [facility] 10-03-2023 Nurse Note Patient Identification confirmed: yes. Injection given and documented on MAR per provider order. Katina Howe MA [facility] 10-03-2023 Instructions Cecily Merlos - 10/03/2023 1:46 PM EDT B12 today and q 4 weeks Rx sent for folic acid RTC in 12 weeks Labs same day documented in this encounter [facility] 10-03-2023 Nurse Note Patient states that she is exhausted. Mariela Sarmiento MA [facility] 10-03-2023 Nurse Note Patient states that she is exhausted. Mariela Sarmiento MA documented in this encounter [facility] 10-03-2023 History of Present illness Narrative Images from the original note were not included. NAME: GenesisJeannette CLINIC NO.: [id number] DATE OF SERVICE: October 03, 2023 (José) [...] replacement / balancing that is offered by [employer]. Updated Visit, July 11, 2023: Jeannette Hurtado [...] which included preparing to see the patient, iadr-xc-olfp patient care, completing clinical documentation, performing a medically appropriate examination, counseling and educating the patient/family/caregiver, ordering medications, tests, or procedures, independently interpreting results (not separately reported), communicating results to the patient/family/caregiver, and care coordination (not separately reported). Jose Rose MD, CPE Hematology and Oncology Services Provided at: [facility], [place], [place] Scribe Attestation: This note was scribed [...] under my direction. CC: Klaudia Gomez MD [address] [place] [address] documented in this encounter [facility] 10-03-2023 Note HNO ID: [id number] Author: JOSE ROSE MD Service: ? Author Type: Physician Type: Progress Notes Filed: 10/03/2023 18:23 Note Text: NAME: Jeannette Hurtado CLINIC NO.: [id number] DATE OF SERVICE: October 03, 2023 (José) [...] replacement / balancing that is offered by [employer]. Updated Visit, July 11, 2023: Jeannette Hurtado [...] tongue at b (more content not included)... [facility] 09-27-2023 Telephone encounter Note This encounter was opened in error. [facility] 09-27-2023 Miscellaneous Notes This encounter was opened in error. documented in this encounter [facility] 08-15-2023 Nurse Note Patient Identification confirmed: yes. Injection given and documented on MAR per provider order. Katina Howe MA documented in this encounter [facility] 08-15-2023 Nurse Note Patient Identification confirmed: yes. Injection given and documented on MAR per provider order. Katina Howe MA documented in this encounter [facility] 07-11-2023 Note HNO ID: [id number] Author: RUBEN WIGGINS APRN.CONFLICT RESOLUTION PROFESSIONAL Service: ? Author Type: Nurse Practitioner Type: Progress Notes Filed: 07/18/2023 12:17 Note Text: NAME: HurtadoJeannette CLINIC NO.: [id number] DATE OF SERVICE: July 11, 2022 ([place]) [...] MPV (fL) Andres (more content not included)... [facility] 07-11-2023 History of Present illness Narrative Images from the original note were not included. NAME: Jeannette Hurtado CLINIC NO.: [id number] DATE OF SERVICE: July 11, 2022 ([place]) [...] 10 years. Updated Visit, July 11, 2023: Jeannettemarc Huratdo returns for scheduled follow-up. Since her last [...] discuss IV iron? Mechelle Gomez RN Jeannette Benavides Hurtado returns for scheduled follow-up. She [...] APRN.CNP Hematology and Oncology Services Provided at: [place], [place] CC: Klaudia Gomez MD [address] [facility] [address] I spent a total of 20 minutes on the date of the service which included preparing to see the patient, atxm-on-mxzm patient care, completing clinical documentation, obtaining and/or reviewing separately obtained history, performing a medically appropriate examination, counseling and educating the patient/family/caregiver, ordering medications, tests, or procedures, independently interpreting results (not separately reported), and communicating results to the patient/family/caregiver. documented in this encounter [facility] 07-08-2023 Miscellaneous Notes Appointment for Venofer cancelled. Spoke w/ patient and notified she will not receive Venofer on Tuesday and just see Ruben. Patient in agreement. Thanks! [facility]an [place] Iron studies do not meet criteria for venofer infusions. Please cancel upcoming venofer appointment 07/11. Thank you, Manuel Rivers RPh documented in this encounter [facility] 07-08-2023 Discharge summary Note Date/Time July 08, 2023 11:18am [facility] [address] [place] [address] Discharge Summary Signed Patient: Jeannette Hurtado MR#: [id number] : 1965 Acct:[id number] Age/Sex: 57 / F Adm Date: 4 [...] [facility] Angio - W DO herb Aragon Stent 1st Vessel LAD CAMPOS - W Rodrigue Rocky, DO s CL Stent 1st Vessel CX CAMPOS - W Rodrigue Hidalgo DO Complications Complications: None Diagnostic Studies [...] doctor or pharmacist, without first calling the presbyterian clergy who implanted the stent. If you require [...] weight lifting, stair steppers, etc. until the presbyterian clergy approves these activities. Check with the presbyterian clergy on your first follow-up visit. CALL YOUR SIZING MACHINE OPERATOR: -If bleeding should occur from the catheter insertion site- apply pressure to the site then immediately call us. -Report any fever, redness, drainage, increased swelling, or firmness at the catheter insertion site. Some bruising or slight swelling may be present at thetime of discharge. -Should arm or leg become cold, numb, white, or blue, contact the presbyterian clergy immediately. -IF you should experience episodes of [...] if you have recurrent angina. The attending presbyterian clergy or a nurse clinician should provide you with specificinstructions regarding activity, diet, medications, and further follow up for you. Follow the medication instructions provided on your discharge. If the dosages and instructions on this sheet differ from the dosage and instructions on the bottle, follow the instructions on the bottle. [facility] is not responsible for incorrect prescription information [...] - Documented By: Frances Hidalgo DO 07/08/23 1111 Signed By: <Electronically signed by Frances Hidalgo DO> 07/08/23 2572 [facility] Work Phone: 1(450) 357-826902-23-2024 Consult note Author Frances Hidalgo [facility] July 08, 2023 11:15am Note Date/Time July 08, 2023 11:15am [facility] [address] [place] [address] Cardiology Consult Note Signed Patient: Jeannette Hurtado MR#: [id number] : 1965 Acct:[id number] Age/Sex: 57 / F Adm Date: 4 Loc: Room: Type: [facility] Attending Dr: Haresh Middleton MD Copies [...] HPI Constitutional Constitutional: Reports as per HPI [facility] Medical History (Updated 07/08/23 @ 11:15 by [...] Results Labs Lab results: Intake and Output 02/22/24 02/23/24 02/23/24 23:59 07:59 15:59 Other: Weight 91 kg Patient Weight 07/08/23 23:59 Weight 91 kg A&P - Cardiology (1) Abnormal cardiovascular stress test: Code(s): R94.39 - Abnormal result of other cardiovascular function study (2) ASHD (arteriosclerotic heart disease): Code(s): I25.10 - Atherosclerotic heart disease of [place] coronary artery without angina pectoris (3) Anginal pain: Code(s): I20.9 - Angina pectoris, unspecified Plan Proceed with two-vessel PCI Documented By: Frances Hidalgo DO 07/08/23 1112 Signed By: <Electronically signed by Frances Hidalgo DO> 07/08/23 1115 [facility] Work Phone: [phone]) 963-641802-23-2024 Procedure [facility]02-08-2024 Evaluation note* Encounter Date Diagnosis Assessment Notes Treatment Notes Treatment Clinical Notes Jun, Chronic fatigue disorder (ICD-10 - G93.32) Jun, Palpitations (ICD-10 - R00.2) Jun, Abnormal myocardial perfusion study (ICD-10 - R94.39) [facility] Other 02-02-2024 Procedure [facility]01-18-2024 Evaluation note* Encounter Date Diagnosis [...] normal electrolytes and creatinine. EKG 11/19/22 at [facility] -sinus rhythm 62 bpm with nonspecific [...] with Cardiolyte MPI to eval exercise capacity/deconditio liseth and rule out any ischemia. If this is equivocal or cannot be done, will get CPET (VO2max usually >20 mL/kg in deconditioning). - If all these are normal will refer her back to PCP. Other less likely diagnoses include lyme disease, adrenal disease, depression, stress, vitamin deficiencies, etc.- F/u in 2 months. [facility] Other 11-20-2023 Evaluation note* Encounter Date Diagnosis Assessment Notes Treatment Notes Treatment Clinical Notes Mar, Chronic fatigue (ICD-10 - R53.82) [facility] Other 11-20-2023 History of Present illness Narrative* Ruben Wiggins APRN.CONFLICT RESOLUTION PROFESSIONAL - 04/04/2023 1:00 PM EST Images from the original note were not included. NAME: Jeannette Hurtado CLINIC NO.: [id number] DATE OF SERVICE: April 04, 2023 ([place]) [...] therapy. Initial Visit, January 26, 2023: Jeannette uHrtado presents today Hematology and Oncology evaluation. She [...] APRN.CNP Hematology and Oncology Services Provided at: [place], [place] CC: Klaudia Gomez MD [facility] [address] I spent a total of 20 minutes on the date of the service which included preparing to see the patient, rsjr-kz-syhz patient care, completing clinical documentation, obtaining and/or reviewing separately obtained history, performing a medically appropriate examination, counseling and educating the pat ient/family/caregiver, ordering medications, tests, or procedures, independently interpreting results (not separately reported), and communicating results to the patient/family/caregiver. [facility] Instructions* Patient Instructions* Jose Rose MD - 02/07/2023 2:06 PM EDT Start oral iron therapy Ferrous gluconate once daily 6 days / week If not tolerated, start IV iron. Recheck labs in 3 weeks Virtual visit 1 week after [facility] History of Present illness Narrative* Jose Rose MD - 02/07/2023 1:15 PM EDT Images from the original note were not included. NAME: Nancy Hurtadolyn CLINIC NO.: [id number] DATE OF SERVICE: February 07, 2023 (José) [...] iron therapy. Initial Visit, January 26, 2023: Jeannettemarc Hurtado presents today Hematology and Oncology evaluation. [...] which included preparing to see the patient, xadi-gy-rczy patient care, completing clinical documentation, obtaining and/or reviewing separately obtained history, performing a medically appropriate examination, counseling and educating the pat ient/family/caregiver, ordering medications, tests, or procedures, independently interpreting results (not separately reported), communicating results to the patient/family/caregiver, and care coordination (not separately reported). Jose Rose MD, CPE Hematology and Oncology Services Provided at: [place], [place] CC: Klaudia Gomez (R[place] Elena) [address] [facility] [address] Klaudia Gomez MD [address] [facility] [address] [facility] Instructions* Patient Instructions* Jose Rose MD - 01/26/2023 4:19 PM EDT Labs this week RTC 1 weeks after to recommend treatment or follow up. [facility] History of Present illness Narrative* Jose Rose MD - 01/26/2023 4:11 PM EDT Images from the original note were not included. NAME: Jeannette Hurtado CLINIC NO.: [id number] DATE OF SERVICE: January 26, 2023 Referring [...] [facility]/2022 colonoscopy [...] which included preparing to see the patient, devv-xz-bjvv patient care, completing clinical documentation, obtaining and/or reviewing separately obtained history, performing a medically appropriate examination, counseling and educating the pat ient/family/caregiver, ordering medications, tests, or procedures, independently interpreting results (not separately reported), communicating results to the patient/family/caregiver, and care coordination (not separately reported). Jose Rose MD, CPE Hematology and Oncology Services Provided at: [place], [place] CC: Klaudia Gomez ([facility]) [address] [facility] [address] Klaudia Gomez MD [address] [facility] [address] [facility] Evaluation [facility]* Encounter Date Diagnosis Assessment Notes Treatment Notes Treatment Clinical Notes Dec, Anemia, unspecified type (ICD-10 - D64.9) [facility] Other 08-23-2023 Evaluation note* Encounter Date Diagnosis Assessment Notes Treatment Notes Treatment Clinical Notes Dec, Adult hypothyroidism (ICD-10 - E03.9) Will recheck labs and refer back to AugustDec, Type 2 diabetes mellitus with hyperglycemia (ICD-10 [...] with her machine and uses it daily. [facility] Other 08-14-2023 Evaluation note* Encounter Date Diagnosis Assessment Notes Treatment Notes Treatment Clinical Notes Dec, Type 2 diabetes mellitus with hyperglycemia, without long-term current use of insulin (ICD-10 - E11.65) [facility] Other 07-07-2023 Evaluation note* Encounter Date Diagnosis Assessment Notes Treatment Notes Treatment Clinical Notes Nov, Other fatigue (ICD-10 - R53.83) R/o abnormalities in cardiac stand point. Vitals reassuring. Will followup w repeat labs on the CBC if all other findings are normal. Nov, Chronic cough (ICD-10 - R05.3) CXR not completed yet this year. Check and consider CT if needed. [facility] Other 06-14-2023 Evaluation note* Encounter Date Diagnosis Assessment Notes Treatment Notes Treatment Clinical Notes Oct, Chronic cough (ICD-10 - R05.3) [facility] Other 05-25-2023 Evaluation note* Encounter Date Diagnosis [...] dose of metformin and encouraged healthier diet. [facility] Other 04-17-2023 NotePROCEDURE: XR CSPINE MIN 4 [...] Electronically authenticated by: ASHLEY PERLA Date: 2022-08-30 07:09[facility]04-10-2023 Evaluation note* Encounter Date Diagnosis Assessment Notes [...] sertraline. Patient prefers to continue present dose. [facility] Other Chief complaint+Reason for visit Narrative* Chief Complaint 3 months referral Reason for Visit Chronic fatigue Coronary artery disease without angina pectoris Status post percutaneous transluminal coronary angioplasty ASHD (arteriosclerotic heart disease) Chronic GERD Depression Incontinence of urine in female Pain of left thumb Routine gynecological examination [facility] Work Phone: Chief complaint+Reason for visit Narrative* Chief Complaint 3 months referral M79.645 Reason for Visit Chronic fatigue Coronary artery disease without angina pectoris Status post percutaneous transluminal coronary angioplasty ASHD (arteriosclerotic heart disease) Chronic GERD Depression Incontinence of urine in female Pain of left thumb Routine gynecological examination [facility] Work Phone: Evaluation note* Diagnosis Anemia, unspecified type- Primary [facility] Diagnosis Iron deficiency anemia secondary to inadequate dietary iron intake [facility] this [facility]* Diagnosis Iron deficiency anemia secondary to inadequate dietary iron intake- Primary documented in this [facility]* Diagnosis Iron deficiency anemia secondary to inadequate dietary iron intake- Primary [facility] this [facility]* Diagnosis Iron deficiency anemia secondary to inadequate dietary iron intake- Primary documented [facility] this [facility] noteNo [employer] Other Evaluation noteNo assessment information available [facility] Work Phone: Evaluation note* Diagnosis Onset Date Resolution Status Abnormal cardiovascular stress test acute Anginal pain acute ASHD (arteriosclerotic heart disease) acute [facility] Work Phone: Evaluation note* Diagnosis OPENED IN ERROR- Primary To allow closing an encounter opened in error (used in Smart[employer]) documented [facility] this encounter [facility]* Diagnosis Iron deficiency anemia secondary to inadequate dietary iron intake- Primary documented [facility] this [facility]* Diagnosis Anemia, unspecified type- Primary documented in this [facility]* Diagnosis Iron deficiency anemia secondary to inadequate dietary iron intake- Primary [facility] this [facility]* Diagnosis Iron deficiency anemia secondary to inadequate dietary iron intake- Primary [facility] this [facility]* Diagnosis Iron deficiency anemia secondary to inadequate dietary iron intake- Primary [facility] Diagnosis Anemia, unspecified type- Primary Iron deficiency anemia secondary to inadequate dietary iron intake Megaloblastic anemia due to vitamin B12 deficiency Other vitamin B12 deficiency anemia Folate deficiency Other B-complex deficiencies [facility] this [facility]* Diagnosis Onset Date Resolution Status Chronic fatigue acute Coronary artery disease without angina pectoris acute Status post percutaneous tra nsluminal coronary angioplasty acute ASHD (arteriosclerotic heart disease) acute Chronic GERD acute Depression acute Incontinence of urine in female acute Pain of left thumb acute Routine gynecological examination acute [facility] Work Phone: Evaluation note* Diagnosis Iron deficiency anemia secondary to inadequate dietary iron intake- Primary [facility]* Diagnosis Iron deficiency anemia secondary to inadequate dietary iron intake- Primary Megaloblastic anemia due to vitamin B12 deficiency Other vitamin B12 deficiency anemia Folate deficiency Other B-complex deficiencies Malaise and fatigue Other malaise and fatigue [facility] this [facility]* Diagnosis Iron deficiency anemia secondary to inadequate dietary iron intake- Primary documented in this encounter [facility] Diagnosis Mixed urge and stress incontinence- Primary Mixed incontinence urge and stress (male)(female) Cystocele, midline Fitting and adjustment of pessary Other screening [facility] Iron deficiency anemia secondary to inadequate dietary iron intake- Primary documented in this encounter [facility] Diagnosis Iron deficiency anemia secondary to inadequate dietary iron intake- Primary documented in this encounter [facility] Diagnosis Iron deficiency anemia secondary to inadequate dietary iron intake- Primary documented in this encounter [facility] Diagnosis Iron deficiency anemia secondary to inadequate dietary iron intake- Primary documented in this encounter [facility] Diagnosis Iron deficiency anemia secondary to inadequate dietary iron intake- Primary documented in this encounter [facility] Diagnosis Encounter for pessary maintenance- Primary Mixed urge and stress incontinence Mixed incontinence urge and stress (male)(female) Cystocele, midline [facility] - Reported* Type Description Date Medical History Migraines Medical History hypothyroid Medical History Hypercholesteremia Medical History Anxiety, generalized Medical History Elevated glucose Medical History Adult hypothyroidism Surgical History Bilateral Sweat glands removed Surgical History Left foot tendon x2 Hospitalization History see above [facility] Other History general Narrative - Reported* Type Description Date Medical History Migraines Medical History hypothyroid Medical History Hypercholesteremia Medical History Anxiety, generalized Medical History Elevated glucose Medical History Adult hypothyroidism Surgical History Bilateral Sweat glands removed Surgical History Left foot tendon x2 Surgical History Colonoscopy 10/2022 Hospitalization History see above [facility] Other Summary Purpose Family History Relationship Condition [...] for Referral Reason 05/03/23 @ 1:40 Fa tigue, seeing hematology. Concerned about potential cardiac causes. Diagnosis 1 Chronic fatigue (R53 .82) Referral Organization [facility] [place] Referring Provider First Name Klaudia Referring Provider Last Name Jason Referring Provider Specialty [facility] Referred Organization [facility] Cardiology Referred Provider Jenifer Morgan Referred Address [address],[place], [id number] Referred Provider Specialty Cardiovascul ar Disease Referral Priority Routine Referral Appointment Date 2023-05-03 General Notes Yanni Pringle 02:53:38 PM >received today, faxed P2P Yanni Pringle 04/06/2023 01:08:29 PM >pt scheduled Reason *FU 01/19 [place] office; mild anemia, fatigue - normal colonoscopy earlier this summer. Labs scanned in. Diagnosis 1 Anemia, unspecified type (D64.9) Referral Organization [facility] [place] Referring Provider First Name Klaudia Referring Provider Last Name Jason Referring Provider Specialty [facility] Referred Organization [facility] Referred Provider Jose Rose Referred Address [address] [place], [place],[address] Referred Provider Specialty Hematology/O ncology Referral Priority Routine General Notes Yanni Pringle 03:31:52 PM >received today, attachments made, notes locked, referral faxed Reason Never had a c-s cope. has chronic mild anemia Diagnosis 1 Mild anemia (D64.9) Referral Organization [facility] [place] Referring Provider First Name Klaudia Referring Provider Last Name Jason Referring Provider Specialty [facility] Referred Organization [facility] Referred Provider ButchAbhishek luciano Referred Address [address] [place], [place],[address] Referred Provider Specialty General Surg tima Referral Priority Routine General Notes JarretYanni franklin 05:13:44 PM >received today, notes attached, waiting for notes to be locked Clinical Notes [id number] Medications Administered Section Inactive Administered Medications - [...] section and content) DATE CREATED AUTHOR 03/24/2020 [facility] Mitali De La Cruz DATE CREATED AUTHOR AUTHOR'S ORGANIZ ATION 09/02/2022 [facility] DATE CREATED AUTHOR AUTHOR'S ORGANIZ ATION 08/18/2023 [facility] DATE CREATED AUTHOR AUTHOR'S ORGANIZ ATION 02/22/2024 [facility] DATE CREATED AUTHOR AUTHOR'S ORGANIZ ATION 04/15/2024 [facility] DATE CREATED AUTHOR AUTHOR'S ORGANIZ ATION 04/26/2024 [facility] EPIC REASON FOR VISIT (unrecogniz ed section and content) Reason Comments Anemia New patient consult Reason Comments Anemia Follow up Specialty Diagnoses / Procedures Referred By Contac t Referred To Contact Diagnoses Iron deficiency anemia secondary to inadequate dietary iron intake Procedures IRON SUCROSE INJECTION PER 1 MG Jose Rose MD [address] [place] [address] [place] [address] Edmund Treat Ani [address] [place] [address] Referral ID Status Reason Start Date Expiration Date V isits Requested Visits Authorized [id number] Authorized 02/07/2023 05/15/2023 99 99 Reason Comments Anemia Reason Comments Medication Follow-up venofer Reason Onset Date Comments Opened In Error 09/27/2023 Reason Comments Results IV Venofer x 5 doses Reason Comments Gynecologic Exam Patient reports that she leaks urine when she laughs, coughs, sneezing and walking. She states that she has to wear a diaper because she can't control her bladder anymore. Her symptoms have got worse over the year. Mammogram order sent to [facility]. Went through menopause late 40's, Never been on HRT before. Last pap 02/18/23 NILM, HPV neg. Had hx of abnormal pap before. Colonoscopy 2022-negative. Patient reports vaginal dryness, would like to discuss treatment options Specialty Diagnoses / Procedures Referred By Aysha yu Referred To Contact Diagnoses Iron deficiency anemia secondary to inadequate dietary iron intake Procedures IRON SUCROSE INJECTION PER 1 MG Maite Merritt PA-C [address] [place] [address] [place] [address] Edmund Treat Ani [address] [place] [address] Referral ID Status Reason Start Date Expiration Date V isits Requested Visits Authorized [id number] Authorized 03/16/2024 05/15/2024 99 99 Reason Comments Pessary Check Patient here for 2 w [place] pessary maintenance follow up. She has Incontinence ring #3 inserted. Denies discharge or odor. Urine sample collected. Patient states that she only a little better, still wearing a diaper. Reason Comments Pessary Check Patient here for 2 w [place] pessary check. Patient has larger pessary, Incontinence dish #5 inserted. Patient states that her symptoms are improving with this pessary and is satisfied. She no longer has to wear a diaper . Urine sample collected. Source Comments (unrecognize d section and content) In the event this informatio n is protected by the Federal Confidentiality of Alcohol and Drug Abuse Patient Records regulations: The Federal rules restrict any use of the information to criminally investigate or prosecute any alcohol or drug abuse patient.[facility] the event this information is protected by the Federal Confidentiality of Alcohol and Drug Abuse Patient Records regulations: The Federal rules restrict any use of the information to criminally investigate or prosecute any alcohol or drug abuse patient.[facility] the event this information is protected by the Federal Confidentiality of Alcohol and Drug Abuse Patient Records regulations: The Federal rules restrict any use of the information to criminally investigate or prosecute any alcohol or drug abuse patient.[facility] the event this information is protected by the Federal Confidentiality of Alcohol and Drug Abuse Patient Records regulations: The Federal rules restrict any use of the information to criminally investigate or prosecute any alcohol or drug abuse patient.[facility] the event this information is protected by the Federal Confidentiality of Alcohol and Drug Abuse Patient Records regulations: The Federal rules restrict any use of the information to criminally investigate or prosecute any alcohol or drug abuse patient.[facility] the event this information is protected by the Federal Confidentiality of Alcohol and Drug Abuse Patient Records regulations: The Federal rules restrict any use of the information to criminally investigate or prosecute any alcohol or drug abuse patient.[facility] the event this information is protected by the Federal Confidentiality of Alcohol and Drug Abuse Patient Records regulations: The Federal rules restrict any use of the information to criminally investigate or prosecute any alcohol or drug abuse patient.[facility] the event this information is protected by the Federal Confidentiality of Alcohol and Drug Abuse Patient Records regulations: The Federal rules restrict any use of the information to criminally investigate or prosecute any alcohol or drug abuse patient.[facility] the event this information is protected by the Federal Confidentiality of Alcohol and Drug Abuse Patient Records regulations: The Federal rules restrict any use of the information to criminally investigate or prosecute any alcohol or drug abuse patient.[facility] the event this information is protected by the Federal Confidentiality of Alcohol and Drug Abuse Patient Records regulations: The Federal rules restrict any use of the information to criminally investigate or prosecute any alcohol or drug abuse patient.[facility] the event this information is protected by the Federal Confidentiality of Alcohol and Drug Abuse Patient Records regulations: The Federal rules restrict any use of the information to criminally investigate or prosecute any alcohol or drug abuse patient.[facility] the event this information is protected by the Federal Confidentiality of Alcohol and Drug Abuse Patient Records regulations: The Federal rules restrict any use of the information to criminally investigate or prosecute any alcohol or drug abuse patient.[facility] the event this information is protected by the Federal Confidentiality of Alcohol and Drug Abuse Patient Records regulations: The Federal rules restrict any use of the information to criminally investigate or prosecute any alcohol or drug abuse patient.[facility] the event this information is protected by the Federal Confidentiality of Alcohol and Drug Abuse Patient Records regulations: The Federal rules restrict any use of the information to criminally investigate or prosecute any alcohol or drug abuse patient.[facility] the event this information is protected by the Federal Confidentiality of Alcohol and Drug Abuse Patient Records regulations: The Federal rules restrict any use of the information to criminally investigate or prosecute any alcohol or drug abuse patient.[facility] the event this information is protected by the Federal Confidentiality of Alcohol and Drug Abuse Patient Records regulations: The Federal rules restrict any use of the information to criminally investigate or prosecute any alcohol or drug abuse patient.[facility] the event this information is protected by the Federal Confidentiality of Alcohol and Drug Abuse Patient Records regulations: The Federal rules restrict any use of the information to criminally investigate or prosecute any alcohol or drug abuse patient.[facility] Shaw[facility] the event this information is protected by the Federal Confidentiality of Alcohol and Drug Abuse Patient Records regulations: The Federal rules restrict any use of the information to criminally investigate or prosecute any alcohol or drug abuse patient.[facility] Shaw[facility] the event this information is protected by the Federal Confidentiality of Alcohol and Drug Abuse Patient Records regulations: The Federal rules restrict any use of the information to criminally investigate or prosecute any alcohol or drug abuse patient.[facility] Shaw[facility] the event this information is protected by the Federal Confidentiality of Alcohol and Drug Abuse Patient Records regulations: The Federal rules restrict any use of the information to criminally investigate or prosecute any alcohol or drug abuse patient.[facility] the event this information is protected by the Federal Confidentiality of Alcohol and Drug Abuse Patient Records regulations: The Federal rules restrict any use of the information to criminally investigate or prosecute any alcohol or drug abuse patient.[facility] Shaw[facility] the event this information is protected by the Federal Confidentiality of Alcohol and Drug Abuse Patient Records regulations: The Federal rules restrict any use of the information to criminally investigate or prosecute any alcohol or drug abuse patient.[facility] the event this information is protected by the Federal Confidentiality of Alcohol and Drug Abuse Patient Records regulations: The Federal rules restrict any use of the information to criminally investigate or prosecute any alcohol or drug abuse patient.[facility] the event this information is protected by the Federal Confidentiality of Alcohol and Drug Abuse Patient Records regulations: The Federal rules restrict any use of the information to criminally investigate or prosecute any alcohol or drug abuse patient.[facility] Shaw[facility] the event this information is protected by the Federal Confidentiality of Alcohol and Drug Abuse Patient Records regulations: The Federal rules restrict any use of the information to criminally investigate or prosecute any alcohol or drug abuse patient.[facility] ShawIn the event this information is protected by the Federal Confidentiality of Alcohol and Drug Abuse Patient Records regulations: The Federal rules restrict any use of the information to criminally investigate or prosecute any alcohol or drug abuse patient.[facility] Teams (unrecognized sec tion and content) [employer] Selector Relationship Specialty Start Date End Date Klaudia Gomez MD [address] [facility] [place] [address] PCP - General Family Medicine 01/19/23 [employer] Selector Relationship Specialty Start Date End Date Klaudia Gomez MD [address] [facility] [place] [address] PCP - General Family Medicine 01/19/23 [employer] Ware[employer] Selector Relationship Specialty Start Date End Date Klaudia Gomez MD [address] [facility] [place] [address] PCP - General Family Medicine 01/19/23 [employer] Warehouse Selector Relationship Specialty Start Date End Date Klaudia Gomez MD [address] [facility] [place] [address] PCP - General Family Medicine 01/19/23 [employer] Warehouse Selector Relationship Specialty Start Date End Date Klaudia Gomez MD [address] [facility] [place] [address] PCP - General Family Medicine 01/19/23 Night Warehouse Selector Relationship Specialty Start Date End Date Klaudia Gomez MD [address] [facility] [place] [address] PCP - General Family Medicine 01/19/23 Team [...] June 17, 2023 End: June 17, 2023 Haersh Middleton MD Attending Provider Activ e Start: [...] Other Provider Active Start: July 08, 2023 [employer] Ware[employer] Selector Relationship Specialty [place] [address] [place] [phone] PCP - General Family Medicine 01/19/23 [employer] Ware[employer] Selector Relationship Specialty Start Date End Date Klaudia Gomez MD [address] [facility] [place] [address] PCP - General Family Medicine 01/19/23 Night Warehouse Selector Relationship Specialty Start Date End Date Klaudia Gomez MD [address] [facility] [place] [address] PCP - General Family Medicine 01/19/23 Night Warehouse Selector Relationship Specialty Start Date End Date Klaudia Gomez MD [address] [facility] [place] [address] PCP - General Family Medicine 01/19/23 Night Warehouse Selector Relationship Specialty Start Date End Date Klaudia Gomez MD [address] [facility] [place] [phone] PCP - General Family Medicine 01/19/23 Night Warehouse Selector Relationship Specialty Start Date End Date Klaudia Gomez MD [address] [facility] [place] [address] PCP - General Family Medicine 01/19/23 Night Warehouse Selector Relationship Specialty Start Date End Date Klaudia Gomez MD [address] [facility] [place] [address] PCP - General Family Medicine 01/19/23 [employer] Warehouse Selector Relationship Specialty Start Date End Date Klaudia Gomez MD [address] [facility] [place] [address] PCP - General Family Medicine 01/19/23 Team Status: Active Member Role Status Dates Haresh Middleton MD Chief Deputy Active Klaudia Gomez MD Primary Care Provider [...] February 08, 2024 End: February 08, 2024 Night Warehouse Selector Relationship Specialty Start Date End Date Klaudia Gomez MD [address] [facility] [place] [address] PCP - General Family Medicine 01/19/23 Team Status: Inactive Member Role Status Dates Klaudia Gomez MD Primary Care Provide r, Attending Provider Active Start: February 20, 2024 End: February 20, 2024 [employer] Ware[employer] Selector Relationship Specialty Start Date End Date Klaudia Gomez MD [address] [facility] [place] [address] PCP - General Family Medicine 01/19/23 Night Warehouse Selector Relationship Specialty Start Date End Date Klaudia Gomez MD [address] [facility] [place] [address] PCP - General Family Medicine 01/19/23 Night Warehouse Selector Relationship Specialty Start Date End Date Klaudia Gomez MD [address] [facility] [place] [address] PCP - General Family Medicine 01/19/23 Night Warehouse Selector Relationship Specialty Start Date End Date Klaudia Gomez MD [address] [place] [phone] PCP - General Family Medicine 02/09/23 Night Warehouse Selector Relationship Specialty Start Date End Date Klaudia Gomez MD [address] [facility] [place] [address] PCP - General Family Medicine 01/19/23 Night Warehouse Selector Relationship Specialty Start Date End Date Klaudia Gomez MD [address] [facility] [place] [address] PCP - General Family Medicine 01/19/23 Night Warehouse Selector Relationship Specialty Start Date End Date Klaudia Gomez MD [address] [facility] [place] [address] PCP - General Family Medicine 01/19/23 Night Warehouse Selector Relationship Specialty Start Date End Date Klaudia Gomez MD [address] [facility] [place] [phone] PCP - General Family Medicine 01/19/23 Night Warehouse Selector Relationship Specialty Start Date End Date Klaudia Gomez MD [address] [place] [facility] [phone] PCP - General Family Medicine 02/09/23 Night Warehouse Selector Relationship Specialty Start Date End Date Klaudia Gomez MD [address] [place] [facility] [phone] PCP - General Family Medicine 02/09/23 Goals (unrecognized section and content) Goals may [...] BE BASED ON THE PRIMARY CLINICAL RECORDS. [facility] [employer] [facility]. provides no warranty or guarantee of the accuracy or completeness of information in this document.
[2024-05-08 10:30] LABS: Anion Gap 11.7; BUN Creatinine Ratio 16.3; Carbon Dioxide 29.5 mmol/L (21.0-32.0); Chloride 103 mmol/L (98-107); Estimated GFR (African America >60 (>=60 mL/min/1.73m^2); Estimated GFR (Non-African Ame 54 (>=60 mL/min/1.73m^2); Glucose 143 mg/dL (74-106); Potassium 4.2 mmol/L (3.5-5.1); Sodium 140 mmol/L (136-145)
== END 2024-05-08 09:50 | disposition home or self-care (01) ==
LOC: LAB 09:49
PROVIDERS: PCP Family Medicine; Visit Provider Family Medicine
DX: R53.82 Chronic fatigue, unspecified (principal)
CPT/HCPCS: 36415; 80048

== ENCOUNTER 2025-03-13 08:57 | Outpatient (OUT) | payer BC, SELFPAY ==
--- OUTSIDE RECORDS SUMMARY | 2025-03-05 09:20 | XMS_ITS | Encounter Summary ---
Author Organization [facility] Address [address] [place] [address] Care Team Providers Care Steeple Jack Name Role Phone Fabiola Purvis MD Primary Care Provider [phone] Source Comments In the event this information is protected by the Federal Confidentiality of Alcohol and Drug AbusePatient Records regulations: The Federal rules restrict any use of the information to criminally investigate or prosecute any alcohol or drug abuse patient.[facility] Reason for Visit * ReasonCommentsFatigue * Consult, Test, Treat (Routine) - ClosedSpecialtyDiagnoses / ProceduresReferred By ContactReferred To ContactRheumatology Diagnoses Chronic fatigue syndrome Procedures OFFICE/OUTPATIENT [facility] 60 MINUTES Maite Guo PA-C [address] [place] [address] [place] [address] Phone: tel: fax: Referral IDStatusReasonStart DateExpiration DateVisits RequestedVisits [id number] PCP Requested Referral Encounter Details DateTypeDepartmentCare Team (Latest Contact Info)Ythnvfrwvoi01/21/2025 9:20 AM ED[facility]istanB[facility] [address] [place] [address] [place] [address] [place] [id number] Chronic fatigue syndrome (Primary Dx); Polyarthralgia Social History Tobacco UseTypesPacks/DayYears UsedDateSmoking Tobacco: NeverSmokeless Tobacco: NeverAlcohol UseStandard Drinks/WeekCommentsYes0 (1 standard drink = 0.6 oz pure alcohol)PHQ-2AnswerDate RecordedPHQ-2 dqpun843rea Deprivation Index AnswerDate RecordedNational Score (1-100), lower number is lower risk78 03/14/2024State Score (1-10), lower number is lower igpf685ata from: https://www.neighborhoodatlas.medicine.[facility].edu/. Last address used for wqgsixorjie[address] [place] [address]75103/14/2024CommentsNoSex and Gender Information ValueDate RecordedSex Assigned at BirthNot on fileLegal RizAgmmvj68/02/2012 7:31 AM ESTGender IdentityNot on fileSexual OrientationNot on filedocumented as of this encounter Progress Notes * Jeff Lambert MD - 03/05/2025 9:11 AM EDT Images from the original note were not included. Rheumatology Outpatient Clinic - Virtual Visit Date of Service: 03/05/2025 Patient: Neha Hurtado Medical Record: [id number] Primary Care Physician: Fabiola Purvis MD Last Rheumatology visit: None at [facility] Referring Provider: Maite Guo [address] [place] [address] [place] [address] Consultation requested by Maite Guo PA-C for an opinion regarding fatigue. My final recommendations will be communicated back to the requesting physician by way of shared Medical record or letter to requesting physician via US mail. History of Present Illness Neha Hurtado is a 59 year old White female who presents on 03/05/2025 for a virtual visit for Fatigue. HISTORY OF PRESENT ILLNESS I have communicated my name and active licensure. The patient's identity and physical location wereverified at the time of this visit. The patient has been informed of the risks and benefits of -- and alternatives to -- treatment through a remote evaluation and consents to proceed with the evaluation remotely. I have confirmed that the patient is in [place] today and have checked in to confirm her consent to be seen virtually. Patient presents with complaints of chronic fatigue. She states that the fatigue has been present for the better part of 3 years and to some degree has progressed. There have been periods of time with intervention that have lessened to fatigue but a persistent nonetheles s. Initially it was thought to be due to job stress and was placed on Zoloft with little or no impact. Then she underwent sleep study that showed sleep apnea uses CPAP for her sleep apnea and this initially provided some benefit but she this is lost its effectiveness. She awakens at least 3 times per night and I will when she arises for the morning is unrefreshed each morning. She tends to nap during lunchtime. There has been times when returning home from work that she has to pull the car off the road side get some sleep and rest to rise. She has been through a cardiac workup and has had stents placed and this has not improved her fatigue. She has been working with hematology for low iron and low B12. She has received IV iron therapy as well as B12 shots neither of which have improved her fatigue level to a significant degree. She has been referred for the potential of a rheumatologic disorder that may be the source of her fatigue. Her rheumatologic review of systems she manifests ongoing dry eyes for the past few years has been unchanged. Her dry mouth has been more in the last few months. She denies any oral or nasal ulcers. She has had some hair thinning (appears to be more tanya male pattern baldness) but no active skin rash. She does have a dry cough mostly during the day at work. She tends to get short of breath. She has a experienced degree of joint pain and its most active in her fingers to a subtle degree her elbows and shoulders. Very mildly in her knees. She recently had foot surgery for torn ligaments and high arch. The morning stiffness of the joints is less than 30 minutes. She does not experience visible swelling of the finger joints or any other joints. She experiences headaches that are more of a sinus based headache. She will have an occasional sharp s hooting pain in the occipital region with her head pain. The remainder of her rheumatologic review of systems is noncontributory. Patient-Entered Data PAIN EVALUATION No data found in the last 1 encounters. PROMIS Assessments 03/04/2025 02/19/2025 11/27/2024 PROMIS Assessments Physical Health Percentile 4 10 Mental Health Percentile 5 2 Pain Score 4 4 Pain Interference Percentile 27 Fatigue Percentile 4 Physical Function Percentile 12 RAPID 3 Nunez Activities of Daily Living 03/04/2025 2:42 PM Dress self? Without ANY difficulty Get in and out of bed? Without ANY difficulty Walk outdoors? UNABLE to do Wash and dry body? Without ANY difficulty Get in and out of car? Without ANY difficulty RAPID 3 Disease Activity Weighed Score Levels: 0 - 1: Near Remission 1.3 - 2.0: Low Severity 2.3 - 4.0: Moderate Severity 4.3 - 10.0: High Severity 03/04/2025 RAPID-3 Weighed Score RAPID 3 Weighed Score 3.06 (Moderate severity ) Impression Diagnoses: (G93.32) Chronic fatigue syndrome (primary encounter diagnosis) (M25.50) Polyarthralgia Plan Orders this visit: [facility] on 03/05/25 LEISA BY IFA WITH REFLEX CCP ANTIBODY IGG C-REACTIVE PROTEIN RHEUMATOID FACTOR SEDIMENTATION RATE, LEOBARDO CONSULT TO RHEUM/IMMUN DISEASE After review of her history and review of systems from a rheumatologic perspective this looks most consistent with probable osteoarthritis and fatigue of undetermined origin although she has fragmented sleep. She does manifest aspects of eye dryness that been chronic with recent mild dryness and a dry cough. There is a remote chance that this may be a manifestation of Sjogren syndrome but she does not experience much in the way of glanced swelling. I recommend to complete her assessment LEISA testing with reflex, rheumatoid factor, anti-CCP antibody, sed rate, and C-reactive protein be obtained. I would recommend we follow-up with a virtual visit in 1 to 2 weeks if possible to review these results and make further recommendations from there. I shared with her I believe there is a low likelihood there is an autoimmune rheumatologic process at play here and it is unlikely that I will be able to impact her fatigue in any significant fashion. Nonetheless we will pursue these labs and make determination what the next best steps are. Return in about 1 week (around 03/12/2025). Subjective Review of Systems Review of Systems CONSTITUTION: Negative for: Fever and Recent weight change HEENT: Positive for: Dry mouth Negative for: Nosebleeds, Mouth sores and Trouble swallowing RESPIRATORY: Positive for: Cough and Shortness of breath Negative for: Pain with breathing and Coughing up blood GASTROINTESTINAL: Negative for: Melena, Diarrhea, Heartburn and Abdominal pain MUSCULOSKELETAL: Positive for: Arthralgias, Myalgias, Muscle weakness, Joint swelling and Morning Joint Stiffness NEUROLOGICAL: Positive for: Headaches, Numbness and Memory loss SKIN: Positive for: Hair loss and Nail changes Negative for: Rash and Skin changes EYES: Positive for: Eye dryness and Visual disturbance Negative for: Eye pain and Eye redness CARDIOVASCULAR: Negative for: Chest pain and Leg swelling GENITOURINARY: Negative for: Dysuria and Hematuria HEMATOLOGIC/LYMPHATIC: Negative for: Swollen glands All other reviewed and negative other than HPI. Past Medical History PAST MEDICAL HISTORY Diagnosis Date Anemia Anxiety Elevated glucose Hypercholesteremia Hypothyroidism Iron deficiency anemia secondary to inadequate dietary iron intake 02/07/2023 Migraines Past Surgical History PAST SURGICAL HISTORY Procedure Laterality Date COLONOSCOPY 10/2022 PAST SURGICAL HISTORY OF Bilateral sweat glands removed PAST SURGICAL HISTORY OF Left Foot tendon x2 PAST SURGICAL HISTORY OF Cardiac Stent x2 Family History FAMILY HISTORY Problem Relation Age of Onset Hypertension Mother Mental illness Mother Cancer Father Hypertension Father Heart disease Father Social History SOCIAL HISTORY[1] Objective Current Medications Current Outpatient Medications Medication Sig rosuvastatin (CRESTOR) 10 mg tablet empagliflozin (JARDIANCE) 10 mg tablet folic acid 1 mg tablet TAKE 1 TABLET DAILY solifenacin 10 mg tablet Take 1 tablet by mouth once daily. aspirin, enteric coated (ASPIRIN, ENTERIC COATED) 81 mg EC tablet Take 81 mg by mouth. lisinopril (ZESTRIL) 5 mg tablet Take 5 mg by mouth once daily. nitroglycerin sublingual (NITROQUICK) 0.4 mg SL tablet Dissolve 0.4 mg under the tongue at bedtime as needed. B-complex with vitamin C (VITAMIN B COMPLEX-C [...] hours as needed for wheezing/shortness of breath. No current facility-administered medications for this visit. Labs Latest Ref Rng & Units 02/14/2025 11/21/2024 08/22/2024 06/06/2024 CBC WBC 3.70 - 11.00 k/uL 13.16 10.99 11.59 15.89 Hemoglobin 11.5 - 15.5 g/dL 14.2 13.5 12.5 14.3 Hematocrit 36.0 - 46.0 % 42.3 40.5 37.0 42.3 Platelet Count 150 - 400 k/uL 253 252 205 288 Abs Neut (ANC) 1.45 - 7.50 k/uL 6.94 6.74 8.61 10.02 Abs Lymph 1.00 - 4.00 k/uL 3.75 2.94 1.94 4.10 Latest Ref Rng & Units 02/14/2025 11/21/2024 08/22/2024 06/06/2024 CMP Sodium 136 - 144 mmol/L 138 135 139 137 Potassium 3.7 - 5.1 mmol/L 4.5 4.4 4.3 4.0 Chloride 98 - 107 mmol/L 101 96 102 98 CO2 22 - 30 mmol/L 23 28 26 27 Glucose 74 - 99 mg/dL 78 178 149 132 BUN 7 - 21 mg/dL 18 21 21 24 Creatinine 0.58 - 0.96 mg/dL 0.93 0.93 0.96 0.92 Calcium 8.5 - 10.2 mg/dL 9.4 10.0 10.0 10.0 AST 13 - 35 U/L 44 40 30 28 ALT 7 - 38 U/L 58 32 22 27 Alkaline Phosphatase 34 - 123 U/L 120 109 103 145 Latest Ref Rng & Units 01/13/2005 TPMT amd G6PD G6PD Scn NORMAL Normal Imaging Last XR Hand/Finger - Impression Only No resulted procedures found. Last MRI Hand - Impression Only No resulted procedures found. Last XR Chest - Impression Only No resulted procedures found. Last XR Cervical Spine - Impression Only No resulted procedures found. Health Maintenance Current Immunizations Reviewed on 08/29/2024 Name Date COVID-19 vaccine (MITA) 10/07/2020 influenza (ccIIV4) vaccine 02/22/2023 tetanus diphtheria pertussis (Tdap) vaccine 10/08/2023 Physical Exam General: Looks well, NAD, A & Ox3. Resp: No acute distress Neuro: No facial asymmetry; normal cognition Skin: No facial rash or lesions Musculoskeletal: Swelling and tenderness limited I spent a total of 60 minutes on the date of the service which included preparing to see the patient, [id number] patient care, completing clinical documentation, obtaining and/or reviewing separately obtained history, performing a medically appropriate examination, counseling and educating the pat ient/family/caregiver, ordering medications, tests, or procedures, communicating with other HCPs (not separately reported), independently interpreting results (not separately reported), and communicating results to the patient/family/caregiver. Medical Decision Making: Problems: Moderate: New problem with uncertain prognosis Data: Unique test(s) ordered: 3+ Risk: Moderate: Moderate risk from testing/treatment Medical Decision Making Level: 4 - Moderate Jeff Lambert MD Rheumatology Date: March 05, 2025 Time: 9:11 AM [1] Social History Tobacco Use Smoking status: Never Smokeless tobacco: Never Vaping Use Vaping status: Never Used Substance Use Topics Alcohol use: Yes Drug use: Never documented in this encounter Plan of Treatment DateTypeDepartmentCare Team (Latest Contact Info)Trxbcclovyf34/31/2025 2:45 PM [facility] Hematology/Oncology [address] [place] [address] [place] [address] [facility]03/19/2025 11:20 AM [facility] Rheumatology [address] [place], [place] [id number] [place] [address] [facility] [place], [place] [id number] Follow up in 1 to 2 weeks virtual visit05/15/2025 1:30 PM [facility] Hematology/Oncology [address] [place] [address] [place] [address] B1205/22/2025 1:30 PM ESTOffice Visit [facility] [address] [place] [address] lab05/29/2025 1:30 PM ESTVisit (SP) Office Hematology/Oncology [address] [place] [address] Maite Guo PA-C [address] [place] [address] 3 month follow updocumented as of this encounter Results * (ABNORMAL) SEDIMENTATION RATE, WESTERGREN (03/06/2025 1:46 PM EDT)Component ValueRef RangeTest MethodAnalysis TimePerformed AtPathologist SignatureSed Rate, Mahmijmvis50(H)0 - 20 mm/hr03/06/2025 11:09 PM [facility]TCUC [facility] LABSpecimen (Source)Anatomical Location / LateralityCollection Method / Volume Collection TimeReceived TimeBloodBLOOD SPECIMEN / UnknownVenipuncture / Mkgkzvm9903/06/2025 1:46 PM EDT1 1:46 PM EDT Narrative Authorizing ProviderResult TypeResult StatusRobert S Petra DUPREELABORATORYFinal ResultPerforming OrganizationAddressCity/State/ZIP CodePhone Number [facility] [address] [place] [address], * RHEUMATOID FACTOR (03/06/2025 1:46 PM EDT)ComponentValueRef RangeTest Method Analysis TimePerformed AtPathologist SignatureRheumatoid Factor<10<16 IU/mL 03/07/2025 10:42 AM EDTCUC [facility] LABSpecimen (Source)Anatomical Location / LateralityCollection Method / VolumeCollection TimeReceived Time BloodBLOOD SPECIMEN / UnknownVenipuncture / Hhbtjsg3203/06/2025 1:46 PM EDT 03/06/2025 1:46 PM EDT Narrative Authorizing ProviderResult TypeResult StatusRobert S Petra DUPREELABORATORYFinal ResultPerforming OrganizationAddressCity/State/ZIP CodePhone Number [facility] [address] [place] [address], * (ABNORMAL) C-REACTIVE PROTEIN (03/06/2025 1:46 PM EDT)ComponentValueRef Range Test MethodAnalysis TimePerformed AtPathologist SignatureCRP0.9(H)<0.9 mg/dL 03/07/2025 10:42 AM EDTCUC [facility] LABSpecimen (Source)Anatomical Location / LateralityCollection Method / VolumeCollection TimeReceived Time BloodBLOOD SPECIMEN / UnknownVenipuncture / Lwrnjpg5403/06/2025 1:46 PM EDT 03/06/2025 1:46 PM EDT Narrative Authorizing ProviderResult TypeResult [facility] ServicesORATORYFinal ResultPerforming OrganizationAddressCity/State/ZIP CodePhone Number [facility] [address] [place] [address], [place] * CCP ANTIBODY IGG (03/06/2025 1:46 PM EDT)ComponentValueRef RangeTest Method Analysis TimePerformed AtPathologist SignatureCCP Antibody IgG Qualitative QrvnatyxBbwcpzyh29/23/2025 11:55 AM EDTCUC [facility] LABCCP Antibody, IgG<15<20 Units03/07/2025 11:55 AM EDTCMOUNT [facility] LABSpecimen (Source)Anatomical Location / LateralityCollection Method / VolumeCollection TimeReceived TimeBloodBLOOD SPECIMEN / UnknownVenipuncture / Ohmieyu8203/06/2025 1:46 PM EDT1 1:46 PM EDT Narrative [facility] - 03/07/2025 11:55 AM EDT This test is used as aid in diagnosis of Rheumatoid arthritis (RA). A negative result cannot rule out RA where clinically suspected. Clinical correlation is required. The following results were obtained with an [employer] QUANTA Lite CCP IgG PRISCA. Cyclic Citrullinated Peptide IgG values obtained with different manufacturers' assay methods may not be used interchangeably. The magnitude of the reported IgG levels cannot be correlated to an endpoint titer. Authorizing ProviderResult TypeResColumbia Regional HospitalORATORYFinal ResultPerforming OrganizationAddressCity/State/ZIP CodePhone Number [facility] [address] [place] [id number], [place] * LEISA BY IFA WITH REFLEX (03/06/2025 1:46 PM EDT)ComponentValueRef RangeTest MethodAnalysis TimePerformed AtPathologist SignatureANANegativeNegative 03/07/2025 2:38 PM EDTCMOUNT CARMEL [facility]ALTH [facility] MAIN LABComment: Anti-nuclear antibody test is used as an aid in diagnosis of systemic autoimmune diseases. Where positive and clinically warranted, follow-up using disease- specific testing is recommended. Low positive titers are not uncommon with advanced age, certain chronic infections, and malignancies among others. Test methodology: Indirect fluorescence immunoassay (IFA) using HEp-2 cells. Specimen (Source)Anatomical Location / LateralityCollection Method / Volume Collection TimeReceived TimeBloodBLOOD SPECIMEN / UnknownVenipuncture / Unknown 03/06/2025 1:46 PM EDT1 1:46 PM EDT Narrative Authorizing ProviderResult TypeResult StatusRobert Marlena Lambert MDLABORATORYFinal ResultPerforming OrganizationAddressCity/State/ZIP CodePhone Number [facility] [address] [place] [address], documented in this encounter Visit Diagnoses Diagnosis Chronic fatigue syndrome- Primary Polyarthralgia Pain in joint, multiple sites documented in this encounter Care Teams Team MemberRelationshipSpecialtyStart DateEnd Date Fabiola Purvis MD [address] [place] [address] PCP - GeneralFamily Medicine01/19/23documented as of this encounter
--- OUTSIDE RECORDS SUMMARY | 2025-03-07 15:30 | XMS_ITS | Encounter Summary ---
Author Organization [facility] Address [address] [facility] [place] [address] Care Team Providers Care [place] Burner Operator Name Role Phone Fabiola Purvis MD Primary Care Provider [phone] Pura Lara DO Unavailable [phone] Reason for Visit * ReasonCommentsPessary CheckPatient here for 4 month pessary maintenance. Patient has Incontinence dish #5. Denies bleeding anddischarge, Urine sample collected .Does have some pain when walking at times but not always. Report ~75% improvement with her symptoms with the current pessary and would like to continue using the same pessary Encounter Details DateTypeDepartmentCare Team (Latest Contact Info)Vpdkhhbhkxh61/23/2025 3:30 PM EDTOffice Visit [facility] [address] [place] [address] [address] Pura Lara DO [address] [address] Encounter for pessary maintenance (Primary Dx); Cystocele, midline; Mixed urge and stress incontinence Social History Tobacco UseTypesPacks/DayYears UsedDateSmoking Tobacco: NeverSmokeless Tobacco: NeverAlcohol UseStandard Drinks/WeekCommentsYes4 (1 standard drink = 0.6 oz pure alcohol)1-2 drinks 2-4 x a month in the past yearPHQ-2AnswerDate RecordedPatient Health Questionnaire-2 Gvdfy194/09/2025CommentsNoSex and Gender InformationValueDate RecordedSex Assigned at BirthNot on fileLegal SexFemale 07/28/2022 7:08 PM EDTGender IdentityNot on fileSexual OrientationNot on file documented as of this encounter Last Filed Vital Signs Vital SignReadingTime TakenCommentsBlood Yrilwywg971/7210 3:31 PM EDT Pulse--Temperature--Respiratory Rate--Oxygen Saturation--Inhaled Oxygen Concentration--Rsdopt86.2 kg (201 lb)03/07/2025 3:31 PM JZFDmajvn346.6 cm (5' 6 )03/07/2025 3:31 PM EDTBody Mass Index32.441 3:31 PM EDTdocumented in this encounter Progress Notes * Pura Lara, DO - 03/07/2025 3:30 PM EDT Images from the original note were not included. Subjective Neha Hurtado is a 59 y.o. female HPI Chief Complaint Patient presents with Pessary Check Patient here for 4 month pessary maintenance. Patient has Incontinence dish #5. Denies bleeding anddischarge, Urine sample collected . Does have some pain when walking at times but not always. Report ~75% improvement with her symptomswith the current pessary and would like to continue using the same pessary Past Medical History: Diagnosis Date Adult hypothyroidism Adult hypothyroidism Anginal pain Anxiety Arthritis Arthritis Asthma (HCC) 2014 Asymptomatic menopausal state Back pain Breast cancer screening by mammogram Chronic sinusitis Coronary artery disease 2023 Cubital tunnel syndrome on right Dermatitis DJD (degenerative joint disease) Elevated fasting glucose Elevated glucose Encounter for gynecological examination (general) (routine) without abnormal findings Foot fracture, left Occult GERD (gastroesophageal reflux disease) History of cardiac cath History of medical problems broken L heel History of medical problems thyroid problems Hypercholesteremia Hyperglycemia due to type 2 diabetes mellitus (HCC) Incontinence Iron deficiency anemia LGSIL on Pap smear of cervix Menopause ovarian failure 2016 Migraine headache Murmur Obesity (BMI 30-39.9) Pap smear for [...] 2017 DILATION AND CURETTAGE OF UTERUS 2017 EGD N/A 10/05/2024 normal per pt OTHER SURGICAL HISTORY 2007 sweat gland removed [...] Used Substance Use Topics Alcohol use: Yes Alcohol/week: [...] C) 500 mg/mL oral liquid Take by mouth Aspirin Low Dose 81 MG chewable tablet Chew 81 mg 1 (one) time B Complex Vitamins (vitamin B complex) tablet celecoxib (CeleBREX) 200 MG capsule Take 200 mg by mouth Daily Contour Next Test test strip empagliflozin (Jardiance) 25 MG Take 1 tablet (25 mg) by mouth Daily 90 tablet 3 Eucalyptus Oil oil Homeopathic Products ([facility]) oil losartan (Cozaar) 25 MG tablet Take 25 mg by mouth Daily metFORMIN (Glucophage) 1000 MG tablet Take 1 tablet (1,000 mg) by mouth in the morning and 1 tablet(1,000 mg) in the evening. Take with meals. 180 tablet 1 Microlet Lancets misc Multiple Vitamins-Minerals (Multi Complete) capsule nitroglycerin (Nitrostat) 0.[address] 0.4 mg under the tongue Daily as needed rosuvastatin (Crestor) 10 MG tablet Take 1 tablet (10 mg) by mouth Daily 90 tablet 3 sertraline (Zoloft) 25 MG tablet Take 25 mg by mouth in the morning. solifenacin (VESIcare) 10 MG tablet TAKE 1 TABLET DAILY 90 tablet 4 No current facility-administered medications on file prior to visit. Review of Systems Constitutional: Negative for chills and fever. Respiratory: Negative for shortness of breath. Cardiovascular: Negative for chest pain. Gastrointestinal: Negative for nausea and vomiting. Genitourinary: Negative for dysuria, pelvic pain, vaginal bleeding, vaginal discharge and vaginal pain. Neurological: Negative for dizziness and headaches. Objective BP 126/72 Ht 5' 6 Wt 201 lb LMP (LMP Unknown) BMI 32.44 kg/m?? Physical Exam Constitutional: Appearance: Normal appearance. Genitourinary: No lesions in the vagina. Genitourinary Comments: Pessary in appropriate position. Pessary removed, cleansed, and re-insertedwithout difficulty. Pessary remained in place with valsalva Right Labia: No lesions. Left Labia: No lesions. Vaginal granulation tissue (in posterior fornix without active bleeding) present. No vaginal discharge. Anterior vaginal prolapse present. Moderate vaginal atrophy present. No cervical lesion. Neurological: Mental Status: She is alert. Skin: General: Skin is warm and dry. Psychiatric: Mood and Affect: Mood normal. Assessment/Plan 1. Encounter for pessary maintenance (Primary) Continue use current pessary, Incontinence dish #5 pessary. Urinary or bowel retention, vaginal bleeding or pain precautions discussed. - Urine dip 2. Cystocele, midline - Urine dip 3. Mixed urge and stress incontinence - Urine dip documented in this encounter Plan of Treatment DateTypeDepartmentCare Team (Latest Contact Info)Xutrgrnokep05/26/2026 9:40 AM ESTOffice Visit [facility] [address] [place] [address] Camilo Chang MD [address] [place] [address] 07/09/2025 3:45 PM ESTOffice Visit [facility] [address] [place] [address] [address] Pura Lara DO [address] [address] documented as of this encounter Procedures Procedure NamePriorityDate/TimeAssociated DiagnosisCommentsPOCT URINALYSIS [id number]/23/2025 3:40 PM EDT Encounter for pessary maintenance Cystocele, midline Mixed urge and stress incontinence documented in this encounter Results * Urine dip (03/07/2025 3:40 PM EDT)ComponentValueRef RangeTest MethodAnalysis TimePerformed AtPathologist SignatureColor, UAColorlessClarity, UAClear Glucose, UAManyNegative - 2000(110) ++++ mg/dLBilirubin, UANegativeNegative - 4(70) +++ mg/dLKetones, UANegativeNegative - 160(16) ++++ mg/dLSpec Grav, UA 1.0051 - 1.03Blood, UANegativeNegative - 50 Tima/mcLpH, UA6.05 - 9Protein, UA NegativeNegative - 2000(20) ++++ mg/dLUrobilinogen, UA1.00.2 - 12 mg/dL Leukocytes, UATraceNegative - 500+++ Delvin/mcLNitrite, UANegativeNegative - PositiveSpecimen (Source)Anatomical Location / LateralityCollection Method / VolumeCollection TimeReceived DnppUrguk48/23/2025 3:40 PM EDT Narrative Authorizing ProviderResult TypeResult StatusPura Lara DOPOINT OF CARE TEST ENTER/EDIT ORDERABLESFinal Result documented in this encounter Visit Diagnoses Diagnosis Encounter for pessary maintenance- Primary Cystocele, midline Mixed urge and stress incontinence Mixed incontinence urge and stress (male)(female) documented in this encounter Care Teams Team MemberRelationshipSpecialtyStart DateEnd Date Fabiola Purvis MD [address] [place] [id number] PCP - GeneralFamily Medicine10/22/24 Pura Lara DO [address] [place] [facility] [address] [id number] Referring PhysicianObstetrics and Gynecology10/22/24documented as of this encounter
--- OUTSIDE RECORDS SUMMARY | 2025-03-13 09:00 | XMS_ITS | Clinical Summary ---
Author Organization [facility] Address [address] [place] [address] Care Team Providers Care Service Architect Name Role Phone Fabiola Purvis MD Primary Care Provider [phone] Pura Lara DO Unavailable [phone] Allergies Active AllergyReactionsCriticalityNoted DateCommentsLatexHives,Rash,UnknownLow 3ProchlorperazineAnxiety,Hives,Palpitations,Rash,QzuddhpJty00/01/2012 Medications MedicationSigDispense QuantityRefillsLast FilledStart DateEnd DateStatus ascorbic acid (Vitamin C) 500 mg/mL oral liquid Take by mouthActive B Complex Vitamins (vitamin B complex) tablet Active Eucalyptus Oil oil Active Contour Next Test test strip 11/11/2022ctive Homeopathic Products (Frankincense Uplifting) oil Active Microlet Lancets misc 12/25/2022ctive Multiple Vitamins-Minerals (Multi Complete) capsule Active sertraline (Zoloft) 25 MG tablet Take 25 mg by mouth in the morning.Active albuterol HFA 90 mcg/act inhaler Inhale 2 puffs every 6 (six) hours if neededActive Aspirin Low Dose 81 MG chewable tablet Chew 81 mg 1 (one) time08/30/2023ctive nitroglycerin (Nitrostat) 0.[address] 0.4 mg under the tongue Daily as honpce9307/08/2023ctive celecoxib (CeleBREX) 200 MG capsule Take 200 mg by mouth Daily09/22/2023ctive losartan (Cozaar) 25 MG tablet Take 25 mg by mouth DailyActive solifenacin (VESIcare) 10 MG tablet Indications:Mixed urge and stress incontinenceTAKE 1 TABLET DAILY 90 tablet 5Active metFORMIN (Glucophage) 1000 MG tablet Indications:Type 2 diabetes mellitus with hyperglycemia, without long-term current use of insulin (HCC)Take 1 tablet (1,000 mg) by mouth in the morning and 1 tablet (1,000 mg) in the evening. Take with meals. 180 tablet 109512/5Active rosuvastatin (Crestor) 10 MG tablet Indications:Hyperlipemia, mixedTake 1 tablet (10 mg) by mouth Daily 90 tablet 309/420318/6Active empagliflozin (Jardiance) 25 MG Indications:Type 2 diabetes mellitus with hyperglycemia, without long-term current use of insulin (HCC)Take 1 tablet (25 mg) by mouth Daily 90 tablet 310501/6Active empagliflozin (Jardiance) 25 MG Indications:Type 2 diabetes mellitus with hyperglycemia, without long-term current use of insulin (HCC)Take 1 tablet (25 mg) by mouth Daily 90 tablet 109Discontinued Active Problems ProblemNoted DateDiagnosed DateAnxiety state10/25/2023avus deformity of left foot, sbijvcew88/11/7263Gqmuyfxhue76/11/2024Hyperglycemia due to type 2 diabetes /11/2024Impaired fasting koumygv2510/25/2023Low grade squamous intraepithelial lesion (LGSIL) on cervicovaginal cytologic smear10/25/2023 Vczespg0410/25/2023ostmenopausal obwjfgac70/11/2024Obstructive sleep apnea zekldsql97/11/2024Iron deficiency anemia secondary to inadequate dietary iron yrzegt7102/07/2023hronic jrvmhjecm07/15/2011Unspecified visual loss04/29/2011 Encounters DateTypeDepartmentCare SznoVvjfugpiitl49/23/2025 3:30 PM EDTOffice Visit [facility] [address] [phone] Pura Lara, DO Encounter for pessary maintenance (Primary Dx); Cystocele, midline; Mixed urge and stress yyzpalfxhhqg50/23/3671Skzilp67/15/2025Refill [facility] [address] [place] [address] Camilo Chang MD Type 2 diabetes mellitus with hyperglycemia, without long-term current use of insulin (HCC)02/11/2025 10:10 AM EDTOffice Visit [facility] [address] [place] [address] Camilo Chang MD Type 2 diabetes mellitus with hyperglycemia, without long-term current use of insulin (HCC) (Primary Dx); Vitamin D deficiency; Hyperlipemia, mixed ; Primary hypertension ; Encounter for dietary consultation; Class 1 obesity due to excess calories with serious comorbidity and body mass index (BMI) of 32.0 to 32.9 in adult02/11/2025amboo flowsheet [facility] [address] [place] [address] Camilo Chang MD 12/14/2024Refill [facility] [address] [facility] [address] [place] [phone] Pura Lara DO Mixed urge and stress incontinencefrom Last 3 Months Immunizations ImmunizationAdministration DatesNext DueInfluenza, injectable, MDCK, preservative free, sdpsspougbys88/10/2023 Family History Medical HistoryRelationNameCommentsHeart diseaseBrother 1HypertensionBrother 2 Chilo gonzalestCABGFatherjogeoffrey parkrstCancerFatherjohn parkrstCoronary artery diseaseFatherjohn parkhurstHeart diseaseFatherjohn parkrstHeart failureFather kalpana gonzalestHistory of heart arery stentFatherjohn parkhurstHypertensionFather kalpana gonzalestPancreatic cancerFatherjohn parkrstBreast cancerFather's Sister jean marie SmallhmaMothermildred paul gonzalestGlaucomaMothermildred paul gonzalestHypertensionMothermildred paul parkhurstMacular degenerationMother kelvin paul jordanrstOsteoarthritisMothermildred paul jordanrstBreast cancer Mother's Sisterdoreen a millerHypertensionSiblingGlaucomaSisterRelationName StatusCommentsBrother 11Brother 2Joe parkhurstFatherjohn parkhurstDeceased Father's Sisterjune riedyMothermildred paul jordanrstAliveMother's Sisterdoreen a millerSiblingSister1 Social History Tobacco UseTypesPacks/DayYears UsedDateSmoking Tobacco: NeverSmokeless Tobacco: Never Tobacco Cessation:Counseling Given: Not Answered Alcohol UseStandard Drinks/WeekCommentsYes4 (1 standard drink = 0.6 oz pure alcohol)1-2 drinks 2-4 x a month in the past yearPHQ-2AnswerDate RecordedPatient Health Questionnaire-2 Hocxi118CommentsNoSex and Gender InformationValueDate RecordedSex Assigned at BirthNot on fileLegal SexFemale 07/28/2022 7:08 PM EDTGender IdentityNot on fileSexual OrientationNot on file Last Filed Vital Signs Vital SignReadingTime TakenCommentsBlood Lftnwikv412/7210 3:31 PM EDT Qatna0286/29/2025 10:11 AM XJSHzralqnslap57.9 ??C (98.4 ??F)06/26/2024 5:33 PM ESTRespiratory Dqzm991302/11/2025 10:11 AM EDTOxygen Azkogpiqiy98%02/11/2025 10:11 AM EDTInhaled Oxygen Concentration--Ireuzi31.2 kg (201 lb)03/07/2025 3:31 PM EDT Tcwngi234.6 cm (5' 6 )03/07/2025 3:31 PM EDTBody Mass Index32.441 3:31 PM EDT Plan of Treatment DateTypeDepartmentCare Team (Latest Contact Info)Yyibqkjjbpk25/26/2026 9:40 AM ESTOffice Visit [facility] [address] [place] [address] Camilo Chang MD [address], [address] [place] [address] 07/09/2025 3:45 PM ESTOffice Visit [facility] [address] [phone] Pura Lara DO [address] [address] Medical Devices ImplantedTypeAreaManufacturerDevice IdentifierShelf Expiration DateModel / Serial / LotH/O Mutliple Cardiac StentsStentN/A: Heart Procedures Procedure NamePriorityDate/TimeAssociated DiagnosisCommentsPOCT URINALYSIS LZVQBJHGNsqobfq16/23/2025 3:40 PM EDT Encounter for pessary maintenance Cystocele, midline Mixed urge and stress incontinence POCT GLYCOSYLATED HEMOGLOBIN (HGB A1C)Dcpbato4102/11/2025 10:18 AM EDT Type 2 diabetes mellitus with hyperglycemia, without long-term current use of insulin (HCC) POCT TYOZUAHUlzccai85/29/2025 10:18 AM EDT Type 2 diabetes mellitus with hyperglycemia, without long-term current use of insulin (HCC) RQJZaloqxv56/24/2025 9:38 AM EDT Type 2 diabetes mellitus with hyperglycemia, without long-term current use of insulin (HCC) T4, BOQVWiafwee78/24/2025 9:38 AM EDT Type 2 diabetes mellitus with hyperglycemia, without long-term current use of insulin (HCC) T3, DFJUOctheuo57/24/2025 9:38 AM EDT Type 2 diabetes mellitus with hyperglycemia, without long-term current use of insulin (HCC) THYROID PEROXIDASE WPESFQBAWWTyxvpvb11/24/2025 9:38 AM EDT Type 2 diabetes mellitus with hyperglycemia, without long-term current use of insulin (HCC) THYROGLOBULIN RXXKOUBOTESyeubls18/24/2025 9:38 AM EDT Type 2 diabetes mellitus with hyperglycemia, without long-term current use of insulin (HCC) RENAL FUNCTION OYPCFMtibqko63/24/2025 9:38 AM EDT Type 2 diabetes mellitus with hyperglycemia, without long-term current use of insulin ([facility]) LIPID APYSDGjlhoow04/24/2025 9:38 AM EDT Type 2 diabetes mellitus with hyperglycemia, without long-term current use of insulin ([facility]) MICROALBUMIN / CREATININE URINE WVXYGUsbfaql23/24/2025 9:38 AM EDT Type 2 diabetes mellitus with hyperglycemia, without long-term current use of insulin ([facility]) VITAMIN D 25 HYDROXY HVOFFBwdbpph68/24/2025 9:38 AM EDT Type 2 diabetes mellitus with hyperglycemia, without long-term current use of insulin ([facility]) C-FIVUCFYPrvrfra75/24/2025 9:38 AM EDT Type 2 diabetes mellitus with hyperglycemia, without long-term current use of insulin ([facility]) from Last 3 Months Results * Urine dip (03/07/2025 3:40 PM [...] Location / LateralityCollection Method / VolumeCollection TimeReceived MrukZsgej72/23/2025 3:40 PM EDT Narrative Authorizing ProviderResult TypeResult Kevon Lara DOPOINT OF CARE TEST ENTER/EDIT ORDERABLESFinal Result * POCT glycosylated hemoglobin (Hb A1C) docked device (02/11/2025 10:18 AM EDT) ComponentValueRef RangeTest MethodAnalysis TimePerformed AtPathologist SignatureHemoglobin A1C5.8Specimen (Source)Anatomical Location / Laterality Collection Method / VolumeCollection TimeReceived TimeBloodVenous blood specimen / Tzbkdqo4702/11/2025 10:18 AM EDT Narrative Authorizing ProviderResult TypeResult Jersey Chang MDPOINT OF CARE TEST ENTER/EDIT ORDERABLESFinal Result * (ABNORMAL) POCT glucose manually resulted (02/11/2025 10:18 AM EDT)Component ValueRef RangeTest MethodAnalysis TimePerformed AtPathologist SignatureGlucose Blood, PHB956od/dLSpecimen (Source)Anatomical Location / LateralityCollection Method / VolumeCollection TimeReceived TimeBloodCapillary blood specimen / Gvdedfj7102/11/2025 10:18 AM EDT Narrative Authorizing ProviderResult TypeResult Jersey Chang MDPOINT OF CARE TEST ENTER/EDIT ORDERABLESFinal Result * Thyroid peroxidase antibody (02/06/2025 9:38 AM EDT)ComponentValueRef Range Test MethodAnalysis TimePerformed AtPathologist SignatureTHYROID PEROXIDASE (TPO) AB110 - 34 IU/mLLABCORPSpecimen (Source)Anatomical Location / Laterality Collection Method / VolumeCollection TimeReceived TimeBloodVenous blood specimen / Ronguep5202/06/2025 9:38 AM EDT02/06/2025 Narrative [facility] - 02/07/2025 4:35 PM EDT Performed at: 02 - [address] ??[phone] Supervisor Policy Change Clerks: Paddy Gilbert PhD, Phone: ??[phone] Authorizing ProviderResult TypeResult Jersey DAVIS BLOOD ORDERABLESFinal ResultPerforming OrganizationAddressty/State/ZIP CodePhone Number [facility] * Microalbumin / creatinine urine ratio (02/06/2025 9:38 AM EDT)ComponentValue Ref RangeTest MethodAnalysis TimePerformed AtPathologist SignatureCreat Ur 101.3Not Estab. mg/dLLABCORPAlbumin Ur4.7Not Estab. ug/mLLABCORPAlb/Creat Ratio Urine50 - 29 mg/g creatLABCORPComment: ? Normal: ?0 - ??29 ? Moderately increased: 30 - 300 Severely increased: >300 Specimen (Source)Anatomical Location / LateralityCollection Method / Volume Collection TimeReceived TimeUrineUrine specimen obtained by clean catch procedure / Umudzkz1702/06/2025 9:38 AM EDT02/06/2025 Narrative [facility] - 02/07/2025 4:35 PM EDT Performed at: 02 - [facility] ??[phone] Supervisor Policy Change Clerks: Paddy Gilbert PhD, Phone: ??[phone] Authorizing ProviderResult TypeResult StatusAhmad F CharleneJefferson Davis Community Hospital URINE ORDERABLESFinal ResultPerforming OrganizationAddressty/State/ZIP CodePhone Number [facility] * Vitamin D 25 hydroxy Total (02/06/2025 9:38 AM EDT)ComponentValueRef RangeTest MethodAnalysis TimePerformed AtPathologist SignatureVitamin D, 25-Iguljea54.5 30.0 - 100.0 ng/mLLABCORPComment: Vitamin D deficiency has been defined by the [place] of [employer] and an Endocrine Society practice guideline as a level of serum 25-OH vitamin D less than 20 ng/mL (1,2). The Endocrine Society went on to further define vitamin D insufficiency as a level between 21 and 29 ng/mL (2). 1. IOM ([place] of [employer]). 2010. Dietary reference ?? intakes for calcium and D. [place]: The ?? National [employer]. 2. Ian MONTANO, Estefany VALDIVIA, Madeline WELLS, et al. ?? Evaluation, treatment, and prevention of vitamin D ?? deficiency: an Endocrine Society clinical practice ?? guideline. JCEM. 2010; 96(7):1911-30. Specimen (Source)Anatomical Location / LateralityCollection Method / Volume Collection TimeReceived TimeBloodVenous blood specimen / Tooxkyn1302/06/2025 9:38 AM EDT02/06/2025 Narrative [facility] - 02/07/2025 4:35 PM EDT Performed at: [address] ??[phone] Supervisor Policy Change Clerks: Paddy Gilbert PhD, Phone: ??[phone] Authorizing ProviderResult TypeResult StatusPark City Hospitallonnie DAVIS BLOOD ORDERABLESFinal ResultPerforming OrganizationAddressCity/State/ZIP CodePhone Number [facility] * (ABNORMAL) C-peptide (02/06/2025 9:38 AM EDT)ComponentValueRef RangeTest MethodAnalysis TimePerformed AtPathologist SignatureC-PEPTIDE, SERUM5.0(H)1.1 - 4.4 ng/mLLABCORPComment:C-Peptide reference interval is for fasting patients.Specimen (Source)Anatomical Location / LateralityCollection Method / VolumeCollection TimeReceived TimeBloodVenous blood specimen / Unknown 02/06/2025 9:38 AM EDT02/06/2025 Narrative [facility] - 02/07/2025 4:35 PM EDT Performed at: - [address] ??[phone] Supervisor Policy Change Clerks: Paddy Gilbert PhD, Phone: ??[phone] Authorizing ProviderResult TypeResult Statusnaye DAVIS BLOOD ORDERABLESFinal ResultPerforming OrganizationAddressty/State/ZIP CodePhone Number [facility] * Thyroglobulin Antibody (02/06/2025 9:38 AM EDT)ComponentValueRef RangeTest MethodAnalysis TimePerformed AtPathologist SignatureTHYROGLOBULIN ANTIBODY<1.0 0.0 - 0.9 IU/mLLABCORPComment: Thyroglobulin Antibody measured by eziCONEX Methodology It should be noted that the presence of thyroglobulin antibodies may not be pathogenic nor diagnostic, especially at very low levels. The assay plane tender has found that four percent of individuals without evidence of thyroid disease or autoimmunity will have positive TgAb levels up to 4 IU/mL. Specimen (Source)Anatomical Location / LateralityCollection Method / Volume Collection TimeReceived TimeBloodVenous blood specimen / Pwuyxcc5702/06/2025 9:38 AM EDT02/06/2025 Narrative [facility] - 02/07/2025 4:35 PM EDT Performed at: [address] [place] [address] ??[phone] Supervisor Policy Change Clerks: Paddy Gilbert PhD, Phone: ??[phone] Authorizing ProviderResult TypeResult StatusCamilo DAVIS BLOOD ORDERABLESFinal ResultPerforming OrganizationAddressCity/State/[facility] CodePhone Number [facility] * T3, free (02/06/2025 9:38 AM EDT)ComponentValueRef RangeTest MethodAnalysis TimePerformed AtPathologist SignatureT3, FREE2.62.0 - 4.4 pg/mLLABCORPSpecimen (Source)Anatomical Location / LateralityCollection Method / VolumeCollection TimeReceived TimeBloodVenous blood specimen / Jeuscew1502/06/2025 9:38 AM EDT 02/06/2025 Narrative [facility] - 02/07/2025 4:35 PM EDT Performed at: [address] [place] [address] ??[phone] Supervisor Policy Change Clerks: Paddy Gilbert PhD, Phone: ??[phone] Authorizing ProviderResult TypeResult Statusnaye DAVIS BLOOD ORDERABLESFinal ResultPerforming OrganizationAddressCity/State/ZIP CodePhone Number [facility] * TSH (02/06/2025 9:38 AM EDT)ComponentValueRef RangeTest MethodAnalysis Time Performed AtPathologist SignatureTSH3.9700.450 - 4.500 uIU/mLLABCORPSpecimen (Source)Anatomical Location / LateralityCollection Method / VolumeCollection TimeReceived TimeBloodVenous blood specimen / Dbypsud4902/06/2025 9:38 AM EDT 02/06/2025 Narrative [facility] - 02/07/2025 4:35 PM EDT Performed at: - [place] [address] [address] [facility], [address] [place] [address] ??[id number] Supervisor Policy Change Clerks: Maggy Meza MD, Phone: ??[phone] Authorizing ProviderResult TypeResult StatusAhmalonnie Kirk Charlene DUPREESTAFFORD DISTRICT HOSPITAL BLOOD ORDERABLESFinal ResultPerforming OrganizationAddressCity/State/ZIP CodePhone Number [facility] * T4, free (02/06/2025 9:38 AM EDT)ComponentValueRef RangeTest MethodAnalysis TimePerformed AtPathologist UvevelrluZ3Lxib(Direct)0.980.82 - 1.77 ng/dL [facility]PSpecimen (Source)Anatomical Location / LateralityCollection Method / VolumeCollection TimeReceived TimeBloodVenous blood specimen / Unknown 02/06/2025 9:38 AM EDT02/06/2025 Narrative [facility] - 02/07/2025 4:35 PM EDT Performed at: - [address], [address] [place] [address] ??[phone] Supervisor Policy Change Clerks: Maggy Meza MD, Phone: ??[phone] Authorizing ProviderResult TypeResult Statusnaye Chang MDSTAFFORD DISTRICT HOSPITAL BLOOD ORDERABLESFinal ResultPerforming OrganizationAddressCity/State/ZIP CodePhone Number [facility] * (ABNORMAL) Renal function panel (02/06/2025 9:38 AM EDT)ComponentValueRef RangeTest MethodAnalysis TimePerformed AtPathologist OkljkbjrtOrkfint601(H)70 - 99 mg/zJYRXBMZUSRP856 - 27 mg/dLLABCORPCreat0.950.57 - 1.00 mg/dLLABCORPEGFR 68>59 mL/min/1.73LABCORPBUN/Creat Vuyzz0583 - 08RBXUREVTerrzb360810 - 144 mmol/[facility]PPotassium4.73.5 - 5.2 mmol/TIOSXZPNQqorfgrw44314 - 106 mmol/L LABCORPCarbon Wfeuxcl5412 - 29 mmol/NUBFFUUUSvoxyil67.28.7 - 10.3 mg/dLLABC[facility]P Phosphorus4.4(H)3.0 - 4.3 mg/dLLABCORPAlbumin4.93.9 - 4.9 g/dLLABCORPSpecimen (Source)Anatomical Location / LateralityCollection Method / VolumeCollection TimeReceived TimeBloodVenous blood specimen / Pmnzdbf6102/06/2025 9:38 AM EDT 02/06/2025 Narrative [facility] - 02/07/2025 4:35 PM EDT Performed at: 01 - [place] [address], [address] [place] [address] ??[phone] Supervisor Policy Change Clerks: Maggy Meza MD, Phone: ??[phone] Authorizing ProviderResult TypeResult StatusCamilo DAVIS BLOOD ORDERABLESFinal ResultPerforming OrganizationAddressty/State/ZIP CodePhone Number [facility] * (ABNORMAL) Lipid panel (02/06/2025 9:38 AM EDT)ComponentValueRef RangeTest MethodAnalysis TimePerformed AtPathologist SignatureCholesterol, Riiyr713(H) 100 - 199 mg/yJLIELIHZTzpcbsugthvqq191(H)0 - 149 mg/dLLABCORPHDL Cttcovovljp25 >39 mg/dLLABCORPVLDL Cholesterol Edg826 - 40 mg/dLLABCORPLDL Chol Calc (NIH) 146(H)0 - 99 mg/dLLABCORPSpecimen (Source)Anatomical Location / Laterality Collection Method / VolumeCollection TimeReceived TimeBloodVenous blood specimen / Jckpeue5802/06/2025 9:38 AM EDT02/06/2025 Narrative [facility] - 02/07/2025 4:35 PM EDT Performed at: 02 - [address] ??[phone] Supervisor Policy Change Clerks: Paddy Gilbert PhD, Phone: ??[phone] Authorizing ProviderResult TypeResult StatusAhnaye DAVIS BLOOD ORDERABLESFinal ResultPerforming OrganizationAddressty/State/ZIP CodePhone Number [facility] from Last 3 Months Insurance * Guarantor: Neha Hurtado PAccount TypeRelation to PatientDate of PhoneBilling AddressPersonal/RykekkUtkn96/09/1966 [address] [place] [address] Care Teams Team MemberRelationshipSpecialtyStart DateEnd Date Fabiola Purvis MD [address] [place] [phone] PCP - GeneralFamily Medicine10/22/24 Pura Lara DO [facility] [address] [phone] Referring PhysicianObstetrics and Gynecology10/22/24
--- OUTSIDE RECORDS SUMMARY | 2025-03-13 09:00 | XMS_ITS | Clinical Summary ---
Author Organization [facility] Address [id number] [address] [place] [address] Care Team Providers Care Artist Woodblock Name Role Phone Fabiola Purvis MD Primary Care Provider [phone] Allergies Active AllergyReactionsCriticalityNoted DateCommentsLatexHives,AyqxEqq0708/17/2023 DbmnaziwqhpagjelPktpfzwJdb85/03/2024 Medications MedicationSigDispense QuantityRefillsLast FilledStart DateEnd DateStatus albuterol (PROVENTIL HFA;VENTOLIN HFA) 90 mcg/actuation inhaler Inhale 2 puffs every 6 (six) hours as needed.Active atorvastatin (LIPITOR) 20 mg tablet 2 tablets (40 mg total).Active esomeprazole (NexIUM) 20 mg capsule Take 1 capsule (20 mg total) by mouth in the morning.Active metFORMIN (GLUCOPHAGE) 1000 mg tablet Take 1 tablet (1,000 mg total) by mouth.12/14/2022ctive sertraline (ZOLOFT) 25 mg tablet Take 1 tablet (25 mg total) by mouth in the morning.Active ascorbic acid, vitamin C, (VITAMIN C) 250 mg tablet Take 1 tablet (250 mg total) by mouth.Active b complex vitamins tablet 1 tablet.Active aspirin 81 mg Take 1 tablet (81 mg total) by mouth in the morning.Active lisinopriL (PRINIVIL,ZESTRIL) 5 mg tablet Take 1 tablet (5 mg total) by mouth in the morning.Active nitroglycerin (NITROSTAT) 0.[address] 1 tablet (0.4 mg total) under the tongue every 5 (five) minutes as needed for chest pain.Active ticagrelor (BRILINTA) 90 mg tablet Take 1 tablet (90 mg total) by mouth in the morning and 1 tablet (90 mg total) before bedtime.Active dicyclomine (BENTYL) 20 mg tablet Take 1 tablet (20 mg total) by mouth every 6 (six) hours as needed (abdominal cramping). 20 tablet 08/17/2023ctive famotidine (PEPCID) 20 mg tablet Take 1 tablet (20 mg total) by mouth in the morning and 1 tablet (20 mg total) before bedtime. 20 tablet 08/17/2023ctive ondansetron ODT (ZOFRAN ODT) 4 mg disintegrating tablet Dissolve 1 tablet (4 mg total) on tongue every 8 (eight) hours as needed for nausea for up to 10 doses. 10 tablet 08/17/2023ctive loperamide (IMODIUM) 2 mg capsule Take 1 capsule (2 mg total) by mouth 4 (four) times a day as needed for diarrhea. 12 capsule 08/17/2023ctive Social History Tobacco UseTypesPacks/DayYears UsedDateSmoking Tobacco: NeverSmokeless Tobacco: Never Tobacco Cessation:Counseling Given: Not Answered Alcohol UseStandard Drinks/WeekCommentsYes0 (1 standard drink = 0.6 oz pure alcohol)2 drinks / weekChildcareAnswerDate ZplodvnrDemszhujsLndczca65/12/2019 EmploymentAnswerDate WlmsoojsExuwfqsiggKmvsmth32/12/2019CommentsNoSex and Gender InformationValueDate RecordedSex Assigned at BirthNot on fileLegal QmvKqtnqi44/06/2015 12:04 PM EDTGender IdentityNot on fileSexual OrientationNot on file Last Filed Vital Signs Vital SignReadingTime TakenCommentsBlood Lbwplfjy122/7504 2:14 PM EDT Rwzia2549 2:14 PM JJADnlhfcdplwz84.1 ??C (98.8 ??F)08/17/2023 11:58 AM EDTRespiratory Pifq104708/17/2023 2:14 PM EDTOxygen Jdeovlgxry88%08/17/2023 2:14 PM EDTInhaled Oxygen Concentration--Demorv85.7 kg (200 lb)08/17/2023 11:58 AM GJFRzejjm072.2 cm (5' 7 )08/17/2023 11:58 AM EDTBody Mass Index31.32008/17/2023 11:58 AM EDT Plan of Treatment Not on file Medical Devices Not on file Insurance * Guarantor: Neha HurtadoAccount TypeRelation to PatientDate of PhoneBilling AddressPersonal/YfwbbjIqix11/09/1966 [address] [address] Care Teams Team MemberRelationshipSpecialtyStart DateEnd Fabiola Purvis MD [address] [place] [address] PCP - GeneralFamily Medicine08/17/23
--- OUTSIDE RECORDS SUMMARY | 2025-03-13 09:00 | XMS_ITS | Encounter Summary ---
Author Organization [facility] Address [address] [place] [address] Care Team Providers Care Narrow Fabric Calenderer Name Role Phone Fabiola Purvis MD Primary Care Provider [phone] Pura Lara DO Unavailable [phone] Reason for Visit * ReasonCommentsNew Med Request Encounter Details DateTypeDepartmentCare Team (Latest Contact Info)Iicufhxuwbd90/15/2025Refill [facility] [address] [place] [address] Camilo Chang MD [address] [place] [address] Type 2 diabetes mellitus with hyperglycemia, without long-term current use of insulin (HCC) Social History Tobacco UseTypesPacks/DayYears UsedDateSmoking Tobacco: NeverSmokeless Tobacco: NeverAlcohol UseStandard Drinks/WeekCommentsYes4 (1 standard drink = 0.6 oz pure alcohol)1-2 drinks 2-4 x a month in the past yearPHQ-2AnswerDate RecordedPatient Health Questionnaire-2 Mnkpu937CommentsNoSex and Gender InformationValueDate RecordedSex Assigned at BirthNot on fileLegal SexFemale 07/28/2022 7:08 PM EDTGender IdentityNot on fileSexual OrientationNot on file documented as of this encounter Miscellaneous Notes * Telephone Encounter - Merline Jack LPN - 02/28/2025 9:08 AM EDT MEDICATION SENT TO PHARMACY. documented in this encounter Plan of Treatment DateTypeDepartmentCare Team (Latest Contact Info)Gqlrurrmcuc43/26/2026 9:40 AM ESTOffice Visit [facility] [address] [place] [address] Camilo Chang MD [address] [place] [address] 07/09/2025 3:45 PM ESTOffice Visit [facility] [address] [place] D [address] [address] Pura Lara DO [address] [address] documented as of this encounter Visit Diagnoses Diagnosis Type 2 diabetes mellitus with hyperglycemia, without long-term current use of insulin (HCC) documented in this encounter Care Teams Team MemberRelationshipSpecialtyStart DateEnd Date Fabiola Purvis MD [address] [place] [phone] PCP - GeneralFamily Medicine10/22/24 Pura Lara DO [address] [address] Referring PhysicianObstetrics and Gynecology10/22/24documented as of this encounter
--- OUTSIDE RECORDS SUMMARY | 2025-03-13 09:00 | XMS_ITS | Clinical Summary ---
Author Organization [facility] Address [address] [place] [address] Phone Care Team Providers Care Screen Print Operator Name Role Phone Unavailable Primary Care Provider Unavailabl e Social History Tobacco UseTypesPacks/DayYears UsedDateSmoking Tobacco: Never Assessed CommentsUnknownSex and Gender InformationValueDate RecordedSex Assigned at Not on fileLegal OdeBhyfxf44/29/2023 1:25 PM ESTGender IdentityNot on fileSexual OrientationNot on file Plan of Treatment Health MaintenanceDue DateLast DoneCommentsCT Tukbkazizykh39/09/1964Colonoscopy 1963Colorectal Cancer Xlqnbbavw27/09/1964FIT-DNA (Cologuard)1963FIT 1963HIV Yjxfsmqny45/09/1964Lipid Panel1963 1911Jvuuopucywvel06/09/1964 Yearly Adult Yuiksoed32/09/1964MMR Vaccines (1 of 1 - Standard series)11/21/1964 Hepatitis C Hdjariphr20/09/1982Cervical Cancer Itgykovbz01/09/1985HPV/Cotest 11/21/1984Pap Smear11/21/1984DTaP/Tdap/Td Vaccines (1 - Tdap)11/21/1985Mammogram 2003Pneumococcal Vaccine (1 of 1 - PCV)11/21/2013Zoster Vaccines (1 of 2) 11/21/2013Influenza Vaccine (#1)2024OVID-19 Vaccine (1 - 2024- season) 2025RSV High Risk: (Elderly (60+) or Population) (1 - 1-dose 75+ series)11/21/2038HIB VaccinesAged OutNo longer eligible based on patient's age to complete this topicHPV VaccinesAged OutNo longer eligible based on patient's age to complete this topicHepatitis A VaccinesAged OutNo longer eligible based on patient's age to complete this topicHepatitis B VaccinesAged OutNo longer eligible based on patient's age to complete this topicIPV VaccinesAged OutNo longer eligible based on patient's age to complete this topicMeningococcal VaccineAged OutNo longer eligible based on patient's age to complete this topic Rotavirus VaccinesAged OutNo longer eligible based on patient's age to complete this topic Insurance
--- OUTSIDE RECORDS SUMMARY | 2025-03-13 09:00 | XMS_ITS | Encounter Summary ---
Author Organization [facility] Address [facility] [place] [address] Care Team Providers Care Electric Motor Fitter Name Role Phone Fabiola Purvis MD Primary Care Provider [phone] Source Comments In the event this information is protected by the Federal Confidentiality of Alcohol and Drug AbusePatient Records regulations: The Federal rules restrict any use of the information to criminally investigate or prosecute any alcohol or drug abuse patient.[facility] Encounter Details DateTypeDepartmentCare Team (Latest Contact Info)Pwiwdixanus30/16/2025 Patient [facility] -[address] [place] [address] Rukhsana Burden RPh At your next appointment, choose [facility]. Social History Tobacco UseTypesPacks/DayYears UsedDateSmoking Tobacco: NeverSmokeless Tobacco: NeverAlcohol UseStandard Drinks/WeekCommentsYes0 (1 standard drink = 0.6 oz pure alcohol)PHQ-2AnswerDate RecordedPHQ-2 [id number] Deprivation Index AnswerDate RecordedNational Score (1-100), lower number is lower risk78 03/14/2024State Score (1-10), lower number is lower [id number] from: https://www.neighborhoodatlas.medicine.[facility]/. Last address used for kdlqwugnfjy0147 [place] [address]24CommentsNoSex and Gender Information ValueDate RecordedSex Assigned at BirthNot on fileLegal FsvQdpmre44/02/2012 7:31 AM ESTGender IdentityNot on fileSexual OrientationNot on filedocumented as of this encounter Plan of Treatment DateTypeDepartmentCare Team (Latest Contact Info)Snzfpaimtrc27/31/2025 2:45 PM [facility] [address] [place] [address] B1203/19/2025 11:20 AM [facility] Rheumatology [address] [place] [address] [place] [address] [facility] [address] Follow up in 1 to 2 weeks virtual visit05/15/2025 1:30 PM [facility] [address] [place] [address] [facility]05/22/2025 1:30 PM ESTOffice Visit [facility] [address] [place] [address] [place] [address] lab05/29/2025 1:30 PM ESTVisit (SP) Office Hematology/Oncology [address] [place] [address] [place] [address] Maite Guo, PA-C [address] [place] [address] 3 month follow updocumented as of this encounter Visit Diagnoses Not on filedocumented in this encounter Care Teams Team MemberRelationshipSpecialtyStart DateEnd Date Fabiola Purvis MD [address] [place] [phone] PCP - GeneralFamily Medicine01/19/23documented as of this encounter
--- OUTSIDE RECORDS SUMMARY | 2025-03-13 09:00 | XMS_ITS | Encounter Summary ---
Author Organization [facility] Address [address] [place] [address] Care Team Providers Care Laborer Car Barn Name Role Phone Fabiola Purvis MD Primary Care Provider [phone] Source Comments In the event this information is protected by the Federal Confidentiality of Alcohol and Drug AbusePatient Records regulations: The Federal rules restrict any use of the information to criminally investigate or prosecute any alcohol or drug abuse patient.[facility] Reason for Visit * ReasonCommentsLab Orders Encounter Details DateTypeDepartmentCare Team (Latest Contact Info)Cafpvgavswo50/08/2025Telephone Hematology/Oncology [address] [place] [address] [place] [address] Maite Guo PA-C [address] [place] [address] Lab Orders Social History Tobacco UseTypesPacks/DayYears UsedDateSmoking Tobacco: NeverSmokeless Tobacco: NeverAlcohol UseStandard Drinks/WeekCommentsYes0 (1 standard drink = 0.6 oz pure alcohol)PHQ-2AnswerDate RecordedPHQ-2 [id number] Deprivation Index AnswerDate RecordedNational Score (1-100), lower number is lower risk78 03/14/2024State Score (1-10), lower number is lower [id number] from: https://www.neighborhoodatlas.medicine.[facility].edu/. Last address used for qsjorzlqeff8230 [place] [address]1544CommentsNoSex and Gender Information ValueDate RecordedSex Assigned at BirthNot on fileLegal NgmGhrbkh23/02/2012 7:31 AM ESTGender IdentityNot on fileSexual OrientationNot on filedocumented as of this encounter Miscellaneous Notes * Telephone Encounter - Maite Guo PA-C - 02/20/2025 8:51 AM EDT She just had them on 02/14/25 * Telephone Encounter - Toña Nassar MA - 02/20/2025 8:[address] orders if needed. Toña Nassar MA documented in this encounter Plan of Treatment DateTypeDepartmentCare Team (Latest Contact Info)Brhwgetbrcs11/31/2025 2:45 PM EDTInfusion Center Hematology/Oncology [address] [place] [address] [place] [address] [facility]03/19/2025 11:20 AM [facility] [address] [place] [address] [place] [address] [facility] [place] [address] Follow up in 1 to 2 weeks virtual visit05/15/2025 1:30 PM ESTInfusion Center Hematology/Oncology [facility] [place] [address] B1205/22/2025 1:30 PM ESTOffice Visit [facility] [address] [place] [address] [place] [address] lab05/29/2025 1:30 PM ESTVisit (SP) Office Hematology/Oncology [address] [place] [address] [place] [address] Maite Guo, PA-C [address] [place] [address] 3 month follow updocumented as of this encounter Visit Diagnoses Not on filedocumented in this encounter Care Teams Team MemberRelationshipSpecialtyStart DateEnd Date Fabiola Purvis MD [address] [place] [phone] PCP - GeneralFamily Medicine01/19/23documented as of this encounter
--- OUTSIDE RECORDS SUMMARY | 2025-03-13 09:00 | XMS_ITS | Encounter Summary ---
Author Organization [facility] Address [address] [place] [address] Care Team Providers Care Cooker Sulfate Name Role Phone Fabiola Purvis MD Primary Care Provider [phone] Pura Lara DO Unavailable [phone] Encounter Details DateTypeDepartmentCare Team (Latest Contact Info)Huiyvcdxzfw70/23/2025Travel Social History Tobacco UseTypesPacks/DayYears UsedDateSmoking Tobacco: NeverSmokeless Tobacco: NeverAlcohol UseStandard Drinks/WeekCommentsYes4 (1 standard drink = 0.6 oz pure alcohol)1-2 drinks 2-4 x a month in the past yearPHQ-2AnswerDate RecordedPatient Health Questionnaire-2 Pmlsd932CommentsNoSex and Gender InformationValueDate RecordedSex Assigned at BirthNot on fileLegal SexFemale 07/28/2022 7:08 PM EDTGender IdentityNot on fileSexual OrientationNot on file documented as of this encounter Plan of Treatment DateTypeDecrossridge community hospitalCare Team (Latest Contact Info)Xnhrhxxkrem53/26/2026 9:40 AM ESTOffice Visit [facility] [address] [place] [address] Camilo Chang MD [address] [place] [address] 07/09/2025 3:45 PM ESTOffice Visit [facility] [place]N Kiran [address] [phone] Pura Lara DO [address] [address] documented as of this encounter Visit Diagnoses Not on filedocumented in this encounter Care Teams Team MemberRelationshipSpecialtyStart DateEnd Date Fabiola Purvis MD [address] [place] [phone] PCP - GeneralFamily Medicine10/22/24 Pura Lara DO [address] [address] Referring PhysicianObstetrics and Gynecology10/22/24documented as of this encounter
--- OUTSIDE RECORDS SUMMARY | 2025-03-13 09:01 | XMS_ITS | Encounter Summary ---
Author Organization [facility] Address [address] [place] [address] Care Team Providers Care Drafter Name Role Phone Fabiola Purvis MD Primary Care Provider [phone] Source Comments In the event this information is protected by the Federal Confidentiality of Alcohol and Drug AbusePatient Records regulations: The Federal rules restrict any use of the information to criminally investigate or prosecute any alcohol or drug abuse patient.[facility] Reason for Visit * ReasonOnset AqujLgwveylqCsfdqxo23/22/2025 Encounter Details DateTypeDepartmentCare Team (Latest Contact Info)Kzildmqdjpa25/22/2025Results Follow-Up Hematology/Oncology [address] [place] [address] Maite Guo PA-C [address] [place] [address] Results Social History Tobacco UseTypesPacks/DayYears UsedDateSmoking Tobacco: NeverSmokeless Tobacco: NeverAlcohol UseStandard Drinks/WeekCommentsYes0 (1 standard drink = 0.6 oz pure alcohol)PHQ-2AnswerDate RecordedPHQ-2 tnhty4465Area Deprivation Index AnswerDate RecordedNational Score (1-100), lower number is lower risk78 03/14/2024State Score (1-10), lower number is lower ylyi6344Data from: https://www.neighborhoodatlas.medicine.[facility]/. Last address used for zcfsqadxokv1481 [place] [address]2684CommentsNoSex and Gender Information ValueDate RecordedSex Assigned at BirthNot on fileLegal ReuPxxfuq86/02/2012 7:31 AM ESTGender IdentityNot on fileSexual OrientationNot on filedocumented as of this encounter Miscellaneous Notes * Telephone Encounter - Rukhsana Sparks RN - 03/06/2025 3:08 PM EDT Pt informed of MM message, once verified, using 2 patient identifiers. Patient denies any questions, needs or concerns at this time. Appointment verified. Rukhsana Sparks RN documented in this encounter Plan of Treatment DateTypeDepartmentCare Team (Latest Contact Info)Vclbsftqqdb51/31/2025 2:45 PM EDTInfusion Center Hematology/Oncology [address] [place] [address] [place] [address] B1203/19/2025 11:20 AM [facility] Rheumatology [address] [place] [address] [place] [address] [facility] [place], [place] [id number] Follow up in 1 to 2 weeks virtual visit05/15/2025 1:30 PM ESTInfusion Center Hematology/Oncology [address] [facility] [place] [address] B1205/22/2025 1:30 PM ESTOffice Visit [facility] [address] [place] [address] [place] [address] lab05/29/2025 1:30 PM ESTVisit (SP) Office Hematology/Oncology [address] [place] [address] [place] [address] Maite Guo PA-C [address] [place] [address] 3 month follow updocumented as of this encounter Visit Diagnoses Not on filedocumented in this encounter Care Teams Team MemberRelationshipSpecialtyStart DateEnd Date Fabiola Purvis MD [address] [place] [address] PCP - GeneralFamily Medicine01/19/23documented as of this encounter
--- OUTSIDE RECORDS SUMMARY | 2025-03-13 09:01 | XMS_ITS | Encounter Summary ---
Author Organization [facility] Address [address] [place] [address] Care Team Providers Care Chair And Couch Maker Name Role Phone Fabiola Purvis MD Primary Care Provider [phone] Source Comments In the event this information is protected by the Federal Confidentiality of Alcohol and Drug AbusePatient Records regulations: The Federal rules restrict any use of the information to criminally investigate or prosecute any alcohol or drug abuse patient.[facility] Encounter Details DateTypeDepartmentCare Team (Latest Contact Info)Opkuvhmqmxl35/21/2025 Patient Msg Rheumatology [address] [place], [place] [id number] [place] [address] [facility] [place] [address] Appointment Request Social History Tobacco UseTypesPacks/DayYears UsedDateSmoking Tobacco: NeverSmokeless Tobacco: NeverAlcohol UseStandard Drinks/WeekCommentsYes0 (1 standard drink = 0.6 oz pure alcohol)PHQ-2AnswerDate RecordedPHQ-2 bdmek8425Area Deprivation Index AnswerDate RecordedNational Score (1-100), lower number is lower risk78 03/14/2024State Score (1-10), lower number is lower dimf9254Data from: https://www.neighborhoodatlas.medicine.[facility].edu/. Last address used for xndfyhlsnex1873 [place] 679[address]CommentsNoSex and Gender Information ValueDate RecordedSex Assigned at BirthNot on fileLegal PpyHnwsyn22/02/2012 7:31 AM ESTGender IdentityNot on fileSexual OrientationNot on filedocumented as of this encounter Plan of Treatment DateTypeDepartmentCare Team (Latest Contact Info)Mdbgksdpqnt22/31/2025 2:45 [facility] [address] [address] B1203/19/2025 11:20 AM [facility] Rheumatology [address] [place] [address] [place] [address] [facility] [place] [address] Follow up in 1 to 2 weeks virtual visit05/15/2025 1:30 PM [facility] Center Hematology/Oncology [address] [address] B1205/22/2025 1:30 PM ESTOffice Visit [facility] Laboratory [address] [place] [address] [place] [address] lab05/29/2025 1:30 PM ESTVisit (SP) Office Hematology/Oncology [address] [place] [address] [place] [address] Maite Guo, PA-C [address] [facility] [address] 3 month follow updocumented as of this encounter Visit Diagnoses Not on filedocumented in this encounter Care Teams Team MemberRelationshipSpecialtyStart DateEnd Date Fabiola Purvis MD [address] [place] [address] PCP - GeneralFamily Medicine01/19/23documented as of this encounter
--- OUTSIDE RECORDS SUMMARY | 2025-03-13 09:01 | XMS_ITS | Clinical Summary ---
Author Organization [facility] Address [address] [place] [address] Care Team Providers Care Molecular Biology Scientist Name Role Phone Fabiola Purvis MD Primary Care Provider [phone] Allergies Active AllergyReactionsCriticalityNoted DateCommentsProchlorperazine Edisylate 01/13/20050350HjmruAlaeirc99/08/2023 Medications MedicationSigDispense QuantityRefillsLast FilledStart DateEnd DateStatus sertraline (ZOLOFT) 25 mg tablet Take 25 mg by mouth once daily.Active esomeprazole (NEXIUM) 20 mg capsule Take 20 mg by mouth once daily.Active metFORMIN (GLUCOPHAGE) 1,000 mg tablet Take 1,000 mg by mouth twice daily with meals.Active albuterol HFA (PROVENTIL HFA) inhaler Inhale 2 Puffs as instructed every 6 hours as needed for wheezing/shortness of breath.Active B-complex with vitamin C (VITAMIN B COMPLEX-C ORAL) Take by mouth.Active ascorbic acid (VITAMIN C ORAL) Take by mouth.Active aspirin, enteric coated (ASPIRIN, ENTERIC COATED) 81 mg EC tablet Take 81 mg by mouth.Active lisinopril (ZESTRIL) 5 mg tablet Take 5 mg by mouth once daily.07/08/2023ctive nitroglycerin sublingual (NITROQUICK) 0.4 mg SL tablet Dissolve 0.4 mg under the tongue at bedtime as needed.07/08/2023ctive solifenacin 10 mg tablet Take 1 tablet by mouth once daily.04/11/2024ctive folic acid 1 mg tablet Indications:Anemia, unspecified typeTAKE 1 TABLET DAILY 90 tablet 5Active rosuvastatin (CRESTOR) 10 mg tablet 5Active empagliflozin (JARDIANCE) 10 mg tablet 5Active atorvastatin (LIPITOR) 40 mg tablet Atorvastatin Active 40 MG PO Daily July 08, 2023 12:00am07/08/2023 02/20/2025Discontinued(Changing Therapy/Dosage Form) Active Problems ProblemNoted DateDiagnosed DateIron deficiency anemia secondary to inadequate dietary iron nljnxk0302/07/20231976Kgosshwlspyz41/31/2005 Encounters DateTypeDepartmentCare QxjqTzgzhctnfph61/22/2025Results Follow-Up Hematology/Oncology [address] [place] [address] [place] [address] Maite Guo PA-C Huwgcpu2203/05/2025 9:20 [facility] [address] [place] [address] Jeff Lambert MD Chronic fatigue syndrome (Primary Dx); Byyzfzbvpgqvim91/21/2025 Patient [facility] [address] [place] [address] Jeff Lambert MD Appointment Knfufld3102/28/2025 Patient [facility] HB-3 [address] [place] [address] Rukhsana Burden RPh At your next appointment, choose [facility].02/20/2025 1:30 PM EDTVisit (SP) Office Hematology/Oncology [address] [place] [address] [place] [address] Maite Guo PA-C Iron deficiency anemia secondary to inadequate dietary iron intake (Primary Dx); Anemia, unspecified type; Folate deficiency; Megaloblastic anemia due to vitamin B12 deficiency; Elevated transaminase level; Chronic fatigue egvcysar75/08/2025Telephone Hematology/Oncology [address] [place] [address] [place] [address] Maite Guo PA-C Lab Rieded2102/19/20256596Jhvsya68/02/2025 2:00 PM EDTInfusion Center Hematology/Oncology [address] [place] [address] [place] [address] Iron deficiency anemia secondary to inadequate dietary iron intake (Primary Dx) 02/07/2025Orders Only Hematology/Oncology [address] [place] [address] Eladia Garibay, RACKER OCTAVE [employer]ARD.SHALE PROCESSING TECHNICIAN 02/07/2025Orders Only Hematology/Oncology [address] [place] [address] Caitlyn Richardson, RACKER OCTAVE [employer]ARD.SHALE PROCESSING TECHNICIAN 02/07/2025Orders Only Hematology/Oncology [address] [place] [address] Maite Guo PA-C Iron deficiency anemia secondary to inadequate dietary iron intake (Primary Dx) 01/17/2025 2:00 PM EDTNurse Visit Hematology/Oncology [address] [place] [address] Sandi Yoo Nurse Edmund Iron deficiency anemia secondary to inadequate dietary iron intake (Primary Dx) 01/16/20256303Jdlafw98/07/2025 2:00 PM EDTNurse Visit Hematology/Oncology [address] [place] [address] Sandi Yoo Nurse Edmund Iron deficiency anemia secondary to inadequate dietary iron intake (Primary Dx) 12/14/2024Refill Hematology/Oncology [address] [place] [address] Jose Kumar MD Refill Requestfrom Last 3 Months Immunizations ImmunizationAdministration DatesNext DueCOVID-19 vaccine (MITA)10/07/2020 influenza (ccIIV4) vaccine, age 6+ mo, quadrivalent, PF (FLUCELVAX)02/22/2023 tetanus diphtheria pertussis (Tdap) vaccine, age 7+ yr (ADACEL, BOOSTRIX) 10/08/2023 Family History Medical HistoryRelationCommentsCancerFatherHeart diseaseFatherHypertensionFather HypertensionMotherMental illnessMotherRelationStatusCommentsFatherDeceasedMother Alive Social History Tobacco UseTypesPacks/DayYears UsedDateSmoking Tobacco: NeverSmokeless Tobacco: Never Tobacco Cessation:Counseling Given: Not Answered Alcohol UseStandard Drinks/WeekCommentsYes0 (1 standard drink = 0.6 oz pure alcohol)PHQ-2AnswerDate RecordedPHQ-2 aalfy7895Area Deprivation Index AnswerDate RecordedNational Score (1-100), lower number is lower risk78 03/14/2024State Score (1-10), lower number is lower sivo8654Data from: https://www.neighborhoodatlas.medicine.[facility]/. Last address used for [address] [place] [address]CommentsNoSex and Gender Information ValueDate RecordedSex Assigned at BirthNot on fileLegal UkjQjxfxu74/02/2012 7:31 AM ESTGender IdentityNot on fileSexual OrientationNot on file Last Filed Vital Signs Vital SignReadingTime TakenCommentsBlood Sfyfmppc015/8302/20/2025 1:43 PM EDT Akcay857202/20/2025 1:43 PM OKQHiexfgujeyb08.2 ??C (97.1 ??F)02/20/2025 1:43 PM EDTRespiratory Utwh6543 1:43 PM EDTOxygen Zbbuchapvf25%02/20/2025 1:43 PM EDTInhaled Oxygen Concentration--Dbasdl66.8 kg (200 lb 2.8 oz)02/20/2025 1:43 PM URBDqekco158.6 cm (5' 5.98 )08/29/2024 2:17 PM EDTBody Mass Index32.33 08/29/2024 2:17 PM EDT Plan of Treatment DateTypeDepartmentCare Team (Latest Contact Info)Bfofyaziusm96/31/2025 2:45 PM EDTInfusion Center Hematology/Oncology [address] [place] [address] [place] [address] 11:20 AM [facility] [address] [place] [address] [place] [address] [facility] [place] [address] Follow up in 1 to 2 weeks virtual visit05/15/2025 1:30 PM ESTInfusion Center Hematology/Oncology [address] [place] [address] [place] [address] B1205/22/2025 1:30 PM [address]Office [address] [facility] [address] [place] [place] [address] lab05/29/2025 1:30 PM ESTVisit (SP) Office Hematology/Oncology [address] [place] [address] Maite Guo PA-C [address] [place] [address] 3 month follow upHealth MaintenanceDue DateLast DoneCommentsAnxiety Screening 11/21/1981Depression Mslcwjvpz23/09/1982HIV Pnmjxbjjx71/09/1982Hepatitis C Vyygdhklr83/09/1982Cervical Cancer Yfirraqir93/09/1985CT Codtpvgpysmu74/09/2009 Cologuard (FIT-DNA)11/21/20083560Fegfeaesytg12/09/2009Colorectal Cancer Screening 11/21/2008Fecal Occult Blood11/21/2008Lipid Etxkpedur28/09/2009Sigmoidoscopy 11/21/2008Pneumococcal Vaccine: 50+ (1 of 1 - PCV)11/21/2013Shingrix Vaccine (1 of 2)11/21/2013RSV Vaccine (1 - Risk 60-74 years 1-dose series)4Covid- 19 Vaccine (2 - 2024- season)/Influenza Vaccine (#1) /02/2023Mammogram Vgmnzvgxt48/, 05/10/2024, 03/16/2022, Additional history existsDiabetes Viyprwwff99/06/2024, 02/11/2025, 11/21/2024, Additional history existsDTaP,Tdap,Td Vaccine (2 - Td or Tdap) Procedures Procedure NamePriorityDate/TimeAssociated DiagnosisCommentsSEDIMENTATION RATE Agbuuom4903/06/2025 1:46 PM EDT Chronic fatigue syndrome Polyarthralgia RHEUMATOID FACTOR OHCwwpgpu82/22/2025 1:46 PM EDT Chronic fatigue syndrome Polyarthralgia C-REACTIVE PROTEIN (CRP)Gvzlqod9403/06/2025 1:46 PM EDT Chronic fatigue syndrome Polyarthralgia CCP ANTIBODY UDJGynvxxa07/22/2025 1:46 PM EDT Chronic fatigue syndrome Polyarthralgia LEISA BY IFA WITH RCZLIHScudelq44/22/2025 1:46 PM EDT Chronic fatigue syndrome Polyarthralgia HEPATIC FUNCTION DPXDbnokmd72/22/2025 1:46 PM EDT Elevated transaminase level VITAMIN B12 ZJYKVRfttnmk99/02/2025 1:47 PM EDT Iron deficiency anemia secondary to inadequate dietary iron intake Folate deficiency Megaloblastic anemia due to vitamin B12 deficiency FOLATE RWQBWJnheuad22/02/2025 1:47 PM EDT Iron deficiency anemia secondary to inadequate dietary iron intake Folate deficiency Megaloblastic anemia due to vitamin B12 deficiency FERRITIN NZEGmwuddt40/02/2025 1:47 PM EDT Iron deficiency anemia secondary to inadequate dietary iron intake Folate deficiency Megaloblastic anemia due to vitamin B12 deficiency CBC + MWIMTerhadr37/02/2025 1:47 PM EDT Iron deficiency anemia secondary to inadequate dietary iron intake Folate deficiency Megaloblastic anemia due to vitamin B12 deficiency IRON + FJRMImqhklg61/02/2025 1:47 PM EDT Iron deficiency anemia secondary to inadequate dietary iron intake Folate deficiency Megaloblastic anemia due to vitamin B12 deficiency COMPREHENSIVE METABOLIC YYRJWFefoxic88/02/2025 1:47 PM EDT Iron deficiency anemia secondary to inadequate dietary iron intake Folate deficiency Megaloblastic anemia due to vitamin B12 deficiency from Last 3 Months Results * LEISA BY IFA WITH REFLEX (03/06/2025 1:46 PM EDT)ComponentValueRef RangeTest MethodAnalysis TimePerformed AtPathologist SignatureANANegativeNegative 03/07/2025 2:38 PM EDTCBRECKSVILLE VA / CRIL[facility] MAIN LABComment: Anti-nuclear antibody test is used [...] 1:46 PM EDT Narrative Authorizing ProviderResult TypeResult StatusBaptist Health Corbin ClemEmanate Health/Queen of the Valley HospitalORATORYSydenham Hospitalal ResultPerforming OrganizationAddressCity/State/ZIP CodePhone Number [facility] [address] * CCP ANTIBODY IGG (03/06/2025 1:46 PM EDT)ComponentValueRef RangeTest Method Analysis TimePerformed AtPathologist SignatureCCP Antibody IgG Qualitative QtjtcylcIfrglhup59/23/2025 11:55 AM EDASHTABULA [facility] MAIN LABCCP Antibody, IgG<15<20 Units03/07/2025 11:55 AM [facility] LABSpecimen (Source)Anatomical Location / LateralityCollection Method / VolumeCollection TimeReceived TimeBloodBLOOD SPECIMEN / UnknownVenipuncture / Bvrquot7203/06/2025 1:46 PM EDT1 1:46 PM EDT Narrative [facility] - 03/07/2025 11:55 AM EDT This test is used as aid in diagnosis of Rheumatoid arthritis (RA). A negative result cannot rule out RA where clinically suspected. Clinical correlation is required. The following results were obtained with an GoChime QUANTA Lite CCP IgG PRISCA. Cyclic Citrullinated Peptide IgG values obtained with different manufacturers' assay methods may not be used interchangeably. The magnitude of the reported IgG levels cannot be correlated to an endpoint titer. Authorizing ProviderResult TypeResult StatusHealthSouth Lakeview Rehabilitation HospitalLABORATORYFinal ResultPerforming OrganizationAddressty/State/ZIP CodePhone Number [facility] [address] [place] [phone], * (ABNORMAL) SEDIMENTATION RATE, WESTERGREN (03/06/2025 1:46 PM EDT)Component ValueRef RangeTest MethodAnalysis TimePerformed AtPathologist SignatureSed Rate, Dmoumishbd86(H)0 - 20 mm/hr03/06/2025 11:09 PM EDTCBRECKSVILLE VA [facility] MAIN LABSpecimen (Source)Anatomical Location / LateralityCollection Method / Volume Collection TimeReceived TimeBloodBLOOD SPECIMEN / UnknownVenipuncture / Wkpfmuw2903/06/2025 1:46 PM EDT1 1:46 PM EDT Narrative Authorizing ProviderResult TypeResult StatusRobert S Petra DUPREELABORATORYFinal ResultPerforming OrganizationAddressCity/State/ZIP CodePhone Number [facility] [address] [place] [address], [place] * RHEUMATOID FACTOR (03/06/2025 1:46 PM EDT)ComponentValueRef RangeTest Method Analysis TimePerformed AtPathologist SignatureRheumatoid Factor<10<16 IU/mL 03/07/2025 10:42 AM EDTCTHE JEWISH [facility] LABSpecimen (Source)Anatomical Location / LateralityCollection Method / VolumeCollection TimeReceived Time BloodBLOOD SPECIMEN / UnknownVenipuncture / Mkvxnks0903/06/2025 1:46 PM EDT 03/06/2025 1:46 PM EDT Narrative Authorizing ProviderResult TypeResult StatusRobert Marlena Lambert MDLABORATORYFinal ResultPerforming OrganizationAddressCity/State/ZIP CodePhone Number [facility] [address] [place] [address], * HEPATIC FUNCTION PNL (03/06/2025 1:46 PM EDT)ComponentValueRef RangeTest MethodAnalysis TimePerformed AtPathologist SignatureAlbumin4.43.9 - 4.9 g/dL 03/06/2025 2:17 PM EDTNORTHCOAASCENSION [facility] LABBilirubin, Total0.3 0.2 - 1.3 mg/dL03/06/2025 2:17 PM EDTNORTBEAUMONT [facility]OS[facility]ITAL LAB Bilirubin, Direct0.1<0.3 mg/dL03/06/2025 2:17 PM EDTNORTHCST [facility] LABAlkaline Hbxpwshexpg85147 - 123 U/L1 2:17 PM EDTNORTBEAUMONT HOSPITAL ILQVIV4908 - 35 U/L1 2:17 PM EDTNOLOGAN [facility] QMDYKH911 - 38 U/L1 2:17 PM EDTHIGHLAND-CLARKSBUR[facility] LABProtein, Total7.36.3 - 8.0 g/dL03/06/2025 2:17 PM EDTNORTBEAUMONT HOSPITAL LABSpecimen (Source)Anatomical Location / LateralityCollection Method / VolumeCollection TimeReceived TimeBloodBLOOD SPECIMEN / UnknownVenipuncture / Zgialpm1903/06/2025 1:46 PM EDT1 1:46 PM EDT Narrative Authorizing ProviderResult TypeResult StatusMaite Guo PA-CLABORATORYFinal ResultPerforming OrganizationAddressCity/State/ZIP CodePhone Number [facility] [address] [place] [address] * (ABNORMAL) C-REACTIVE PROTEIN (03/06/2025 1:46 PM EDT)ComponentValueRef Range Test MethodAnalysis TimePerformed AtPathologist SignatureCRP0.9(H)<0.9 mg/dL 03/07/2025 10:42 AM EDTCBRECKSVILLE [facility] MAIN LABSpecimen (Source)Anatomical Location / LateralityCollection Method / VolumeCollection TimeReceived Time BloodBLOOD SPECIMEN / UnknownVenipuncture / Onjuxzq2503/06/2025 1:46 PM EDT 03/06/2025 1:46 PM EDT Narrative Authorizing ProviderResult TypeResult StatusRobert Marlena aLmbert MDLABORATORYFinal ResultPerforming OrganizationAddressCity/State/ZIP CodePhone Number [facility] [address] [place] [address], * VITAMIN B12 (02/14/2025 1:47 PM EDT)ComponentValueRef RangeTest MethodAnalysis TimePerformed AtPathologist SignatureVitamin C84012204 - 1,245 pg/mL02/15/2025 8:53 AM [facility] LABSpecimen (Source)Anatomical Location / LateralityCollection Method / VolumeCollection TimeReceived Time BloodBLOOD SPECIMEN / UnknownVenipuncture / Ubyhbsx2202/14/2025 1:47 PM EDT 02/14/2025 1:47 PM EDT Narrative Authorizing ProviderResult TypeResult StatusGeorgeadwoa Chiara Sari STRICKLANDCLABORATORYFinal ResultPerforming OrganizationAddressCity/State/ZIP CodePhone Number [facility] [address] [place] [phone], [place] * (ABNORMAL) IRON AND TIBC (02/14/2025 1:47 PM EDT)ComponentValueRef RangeTest MethodAnalysis TimePerformed AtPathologist MhoobwdqmShzf3659 - 186 ug/dL 02/15/2025 8:36 AM [facility] HBPCYXZ536372 - 386 ug/dL 02/15/2025 8:36 AM [facility] LABTransferrin Saturation 14.6(L)15.0 - 57.0 %02/15/2025 8:36 AM [facility] LAB Specimen (Source)Anatomical Location / LateralityCollection Method / Volume Collection TimeReceived TimeBloodBLOOD SPECIMEN / UnknownVenipuncture / Jxipoez6402/14/2025 1:47 PM EDT1 1:47 PM EDT Narrative Authorizing ProviderResult TypeResult StatusMaite STRICKLANDCLABORATORYFinal ResultPerforming OrganizationAddressty/State/ZIP CodePhone Number [facility] [address] [place] [phone], [place] * FOLATE, SERUM (02/14/2025 1:47 PM EDT)ComponentValueRef RangeTest Method Analysis TimePerformed AtPathologist SignatureFolate>20.0>4.7 ng/mL02/15/2025 8:53 AM [facility] LABComment: A result of > 20 ng/mL is not necessarily indicative of a pathologic or treatable condition: it reflects a limitation of the test methodology. Assay reference range: 4.8 to 24.2 ng/mL. Suitable for detection of folate deficiency. Reference: Folate III (Folate III) [package insert V 1.0 Thai]. [facility], [place], [place]: March 2015. Specimen (Source)Anatomical Location / LateralityCollection Method / Volume Collection TimeReceived TimeBloodBLOOD SPECIMEN / UnknownVenipuncture / Unknown 02/14/2025 1:47 PM EDT1 1:47 PM EDT Narrative Authorizing ProviderResult TypeResult StatusMaite Chiara Sari [place]-CLABORATORYFinal ResultPerforming OrganizationAddHahnemann University Hospitalty/State/ZIP CodePhone Number [facility] [address] [place] [address], * (ABNORMAL) FERRITIN (02/14/2025 1:47 PM EDT)ComponentValueRef RangeTest Method Analysis TimePerformed AtPathologist IuscqcsamBbfebkdu533.0(H)14.7 - 205.1 ng/mL02/15/2025 8:53 AM EDTCSOUTHERN [facility]IO [facility] LABSpecimen (Source) Anatomical Location / LateralityCollection Method / VolumeCollection Time Received TimeBloodBLOOD SPECIMEN / UnknownVenipuncture / Brurpqw8402/14/2025 1:47 PM EDT1 1:47 PM EDT Narrative Authorizing ProviderResult TypeResult StatusMaite STANF[place]-CLABORATORYFinal ResultPerforming OrganizationAddHahnemann University Hospitalty/State/ZIP CodePhone Number [facility] [address] [place] [address], * (ABNORMAL) COMPREHENSIVE METABOLIC PANEL (02/14/2025 1:47 PM EDT)Component ValueRef RangeTest MethodAnalysis TimePerformed AtPathologist Signature Protein, Total7.06.3 - 8.0 g/dL02/15/2025 8:48 AM EDTCSOUTHERN OHIO [facility] LABAlbumin4.53.9 - 4.9 g/dL02/15/2025 8:48 AM EDTCSOUTHERN [facility]IO [facility] LABCalcium, Total9.48.5 - 10.2 mg/dL02/15/2025 8:48 AM [facility] LABBilirubin, Total0.20.2 - 1.3 mg/dL02/15/2025 8:48 AM EDT [facility] LABAlkaline Wmggtfbbmcu46975 - 123 U/L1 8:48 AM [facility] AZCLMG34(H)13 - 35 U/L1 8:48 AM [facility] YYKBAY72(H)7 - 38 U/L1 8:48 AM [facility] KRYUqhmkgl8177 - 99 mg/dL02/15/2025 8:48 AM [facility] LABComment: The [place] Diabetes Association (ADA) provides guidance for cutoff values for fasting glucose andrandom glucose. The ADA defines fasting as no [...] Standards of Medical Care in Diabetes 2016, [place] [employer]. Diabetes Care. 2016.39(Suppl 1). OAH323 - 21 mg/dL02/15/2025 8:48 AM [facility] LAB Creatinine0.930.58 - 0.96 mg/dL02/15/2025 8:48 AM [facility] FZZGctqpg048829 - 144 mmol/L1 8:48 AM [facility] LABPotassium4.53.7 - 5.1 mmol/L1 8:48 AM [facility] KWADahsntzs32071 - 107 mmol/L1 8:48 AM [facility] DKOUL16919 - 30 mmol/L1 8:48 AM [facility] LABAnion Gxf865 - 15 mmol/L1 8:48 AM [facility] LABEstimated Glomerular Filtration Rate70>=60 mL/min/1.73m 02/15/2025 8:48 AM EDTCSOUTHERN OHIO MEDICAL [facility] LABComment:Estimated Glomerular Filtration Rate (eGFR) is calculated using the 2020 CKD-EPI creatinine equation. This equation utilizes serum creatinine, sex, and age as parameters. The creatinine assay has traceable calibration to isotope dilution- mass spectrometry. Refer to KDIGO guidelines for clinical interpretation. In patients with unstable renal function, e.g. those with acute kidney injury, the eGFRmay not accurately reflect actual GFR.Specimen (Source)Anatomical Location / LateralityCollection Method / VolumeCollection TimeReceived TimeBloodBLOOD SPECIMEN / UnknownVenipuncture / Wpbipnr5402/14/2025 1:47 PM EDT1 1:47 PM EDT Narrative Authorizing ProviderResult TypeResult StatusMaite ST[facility]-CLABORATORYFinal ResultPerforming OrganizationAddressCity/State/ZIP CodePhone Number [facility] [address] [place] [address], * (ABNORMAL) COMPLETE BLOOD COUNT AND DIFFERENTIAL (02/14/2025 1:47 PM EDT) ComponentValueRef RangeTest MethodAnalysis TimePerformed AtPathologist RlwsrzvylPID64.16(H)3.70 - 11.00 k/uL02/14/2025 1:52 PM EDTNORTHCEATON RAPIDS [facility] LABRBC4.483.90 - 5.20 m/uL02/14/2025 1:52 PM EDTNORTBEAUMONT [facility]OS[facility] VSIKyaovdvaxb71.211.5 - 15.5 g/dL02/14/2025 1:52 PM EDT [facility] KVLUyprruhszc68.336.0 - 46.0 %02/14/2025 1:52 PM EDTNORTHCEATON RAPIDS [facility] GJMLEF89.480.0 - 100.0 fL 02/14/2025 1:52 PM EDTNORTHCEATON RAPIDS [facility] PVVLML18.726.0 - 34.0 pg02/14/2025 1:52 PM EDTNORTBEAUMONT [facility]OSP[facility] XBOQVXD38.630.5 - 36.0 g/dL02/14/2025 1:52 PM EDTHIGHLAND[facility] LABRDW-CV12.7 11.5 - 15.0 %02/14/2025 1:52 PM EDTNORTBEAUMONT HOSPITAL LAB Platelet Upcxr387250 - 400 k/uL02/14/2025 1:52 PM EDTNOLOGAN [facility] LABMPV9.69.0 - 12.7 fL02/14/2025 1:52 PM EDTNOLOGAN [facility] LABNeutrophils %52.7%02/14/2025 1:52 PM EDTNOLOGAN [facility] LABAbs Neut6.941.45 - 7.50 k/uL02/14/2025 1:52 PM EDTHIGHLAND-[facility] LABLymphocytes %28.5%02/14/2025 1:52 PM [facility]SIST[facility] LABAbs Lymph3.751.00 - 4.00 k/uL02/14/2025 1:52 PM EDT [facility] LABMonocytes %5.9%02/14/2025 1:52 PM EDT [facility] LABAbs Mono0.77<0.87 k/uL02/14/2025 1:52 PM [facility]SIST[facility] LABEosinophils %11.6%02/14/2025 1:52 PM EDTHIGHLAND-[facility] LABAbs Eosin1.53(H)<0.46 k/uL02/14/2025 1:52 PM EDTNOLOG[facility] LABBasophils %1.0%02/14/2025 1:52 PM EDTNORTBEAUMONT HOSPITAL LABAbs Baso0.13(H)<0.11 k/uL02/14/2025 1:52 PM EDTNOLOG[facility] LABImmature Granulocytes %0.3% 02/14/2025 1:52 PM EDTHIGHLAND[facility] LABAbs Immature Gran 0.04<0.10 k/uL1006/2024 1:52 PM EDTNORTBEAUMONT HOSPITAL LABNRBC 0.0/100 WBC02/14/2025 1:52 PM EDTNOLOGAN [facility] LABAbsolute nRBC<0.01<0.01 k/uL02/14/2025 1:52 PM EDTNORTBEAUMONT [facility] LAB Diff ElavOarl57/02/2025 1:52 PM EDTNORTBEAUMONT [facility]OSPITAL LAB Specimen (Source)Anatomical Location / LateralityCollection Method / Volume Collection TimeReceived TimeBloodBLOOD SPECIMEN / UnknownVenipuncture / Plxoufj9702/14/2025 1:47 PM EDT1 1:47 PM EDT Narrative Authorizing ProviderResult TypeResult StatusMinadwoa ST[facility]-CLABORATORYFinal ResultPerforming OrganizationAddressCity/State/ZIP CodePhone Number [facility] [address] [place] [address] from Last 3 Months Insurance * Guarantor: Neha Hurtado AAccount TypeRelation to PatientDate of PhoneBilling AddressPersonal/EawohkDpca14/09/1966 [address] [place] [address] Care Teams Team MemberRelationshipSpecialtyStart DateEnd Fabiola Purvis MD [address] [place] [address] PCP - GeneralFamily Medicine01/19/23
--- OUTSIDE RECORDS SUMMARY | 2025-03-13 09:08 | XMS_ITS | CCD ---
Author Organization [facility] Care Team Providers Care Farm Demonstrator Name Role Phone Klaudia Gomez Unavailable CARRIEC, DR BENJAMIN Primary Care Unavailable KARASIK ., DR MCDANIEL Admitting Unavailabl e KARASIK ., DR MCDANIEL Attending Unavailabl e KARASIK ., DR MCDANIEL Consulting Unavailabl e JASON, DR KLAUDIA Friedman Attending Unavailable GOMEZ, DR KLAUDIA Friedman Consulting Unavailable JASON, DR KLAUDIA Firedman Primary Care Unavailable JASON, DR KLAUDIA Friedman Admitting Unavailable GOMEZ, DR KLAUDIA Friedman Attending [facility]available [facility] Primary Care Unavailable JASON, [...] Unavailable Klaudia Gomez MD Primary Care Provider [phone] MD Klaudia Gomez Primary Care Provider [phone] MD Haresh Middleton Attending Provider Haresh Middleton Unavailable MD Jenifer Morgan Referring Provider [phone] ALEXIA MCKEON Attending Unavailable KLAUDIA GOMEZ Primary Care Unavailable Klaudia Gomez MD Primary Care Provider [phone] MD Klaudia Gomez Primary Care Provider MD Klaudia Gomez Attending Provider [phone] Klaudia Gomez MD Primary Care Provider Klaudia Gomez MD Primary Care Provider Haresh Middleton MD Attending Provider Fabby Teran MD Attending Provider Klaudia Gomez MD Primary Care Provider Klaudia Gomez MD Primary Care Provider LotusaprMiri kaur DOa J Unavailable Klaudia Gomez Admitting Unavailable GomezKlaudia Attending Unavailable Gomez, Klaudia E Primary Care Unavailable Pura Lara Attending Unavailable America Pura Admitting Unavailable Gomez, Klaudia E Primary Care Unavailable Haresh Middleton Attending Haresh Galvez Admitting Unavai rafiale Klaudia Gomez E Primary Care Unavailable Jeffry, Imemilia Attending Unavailable Jeffry, Imad Admitting Unavailable Gomez, Klaudia E Primary Care Unavailable Klaudia Gomez MD Primary Care Provider SHAINA, MAITE M Referring Unavailable GOMEZ, KLAUDIA E Primary Care Unavailable SHAINA, MAITE M Referring Unavailable GOMEZ, KLAUDIA E Primary Care Unavailable SHAINA, MAITE M Attending Unavailable GOMEZ, KLAUDIA E Primary Care Unavailable ABHYANKAR, JOSE Referring Unavailable GOMEZ, KLAUDIA E Primary Care Unavailable ABHYANKAR, JOSE Referring Unavailable SHAINA, MAITE M Referring Unavailable GOMEZ, KLAUDIA E Primary Care Unavailable GOMEZ, KLAUDIA E Primary Care Unavailable ABHYANKAR, JOSE Referring Unavailable GOMEZ, KLAUDIA E Primary Care Unavailable ABHYANKAR, JOSE Referring Unavailable SHAINA, MAITE M Referring Unavailable GOMEZ, KLAUDIA E Primary Care Unavailable SHAINA, MAITE M Referring Unavailable GOMEZ, KLAUDIA E Primary Care Unavailable SHAINA, MAITE M Referring Unavailable GOMEZ, KLAUDIA E Primary Care Unavailable GOMEZ, KLAUDIA E Primary Care Unavailable ABHYANKAR, JOSE Referring Unavailable SHAINA, MAITE M Attending Unavailable SHAINA, MAITE M Referring Unavailable GOMEZ, KLAUDIA E Primary Care Unavailable GOMEZ, KLAUDIA E Primary Care Unavailable ABHYANKAR, JOSE Referring Unavailable GOMEZ, KLAUDIA E Primary Care Unavailable ABHYANKAR, JOSE Referring Unavailable SHAINA, MAITE M Referring Unavailable GOMEZ, KLAUDIA E Primary Care Unavailable GOMEZ, KLAUDIA E Primary Care Unavailable RAEGAN CACERES Attending Unavailable SHAINA, MAITE M Referring Unavailable SHAINA, MAITE M Attending Unavailable GOMEZ, KLAUDIA E Primary Care Unavailable ABHYANKAR, JOSE Referring Unavailable SHAINA, MAITE M Referring Unavailable GOMEZ, KLAUDIA E Primary Care Unavailable GOMEZ, KLAUDIA E Primary Care Unavailable GOMEZ, KLAUDIA E Primary Care Unavailable ABHYANKAR, JOSE Referring Unavailable SHAINA, MAITE M Attending Unavailable GOMEZ, KLAUDIA E Primary Care Unavailable SHAINA, MAITE M Referring Unavailable GOMEZ, KLAUDIA E Primary Care Unavailable ABHYANKAR, JOSE Referring Unavailable SHAINA, MAITE M Referring Unavailable GOMEZ, KLAUDIA E Primary Care Unavailable SHAINA, MAITE M Referring Unavailable GOMEZ, KLAUDIA E Primary Care Unavailable GOMEZ, KLAUDIA E Primary Care Unavailable ABHYANKAR, JOSE Referring Unavailable SHAINA, MAITE M Referring Unavailable GOMEZ, KLAUDIA E Primary Care Unavailable GOMEZ, KLAUDIA E Primary Care Unavailable SHAINA, MAITE M Referring Unavailable SHAINA, MAITE M Attending Unavailable GOMEZ, KLAUDIA E Primary Care Unavailable ABHYANKAR, JOSE Referring Unavailable GOMEZ, KLAUDIA E Primary Care Unavailable SHAINA, MAITE M Referring Unavailable GOMEZ, KLAUDIA E Primary Care Unavailable JUAN, DAVY Referring Unavailable SHAINA, MAITE M Referring Unavailable GOMEZ, KLAUDIA E Primary Care Unavailable DEVAN NUNEZ Attending Unavailable PURA LARA Attending Unavailable CAMILO CHANG Attending Unavailable PURA LARA Attending Unavailable CAMILO CHANG Attending Unavailable PURA LARA Attending Unavailable PURA LARA Attending Unavailable PURA LARA Attending Unavailable PURA LARA Attending Unavailable DEVAN NUNEZ Attending Unavailable DEVAN NUNEZ Referring Unavailable Allergies Allergy ClassificationReported Allergen(s)Allergy TypeDate of OnsetReaction(s) FacilityLatex (1 source)LatexSubstance Wcbvxas24-23-0580UaiusfyLpfbtsvdr Clinic Prochlorperazine (1 source)ProchlorperazineDrug Dwdihxv92-27-8003Fooenkguc Clinic (6 sources)Prochlorperazine; Translations: [Compazine]Drug Ugzmkbg02-70-6201 anxious feelingsThe [facility] (20 sources)Latex; Translations: [LATEX]Drug sesnlpm53-43-4553TlxbgdvKxmzeeatb ClinicComment on above:Onset Date: 02/03/2018 (1 source)Allergies ReconciledPropensity to adverse reactionsColumb[facility] Other (8 sources)Compazine *ANTIPSYCHOTICS/ANTIMANIC AGENTS*Propensity to adverse eifisknmk56-94-8946Unqnvdg:psychological changes--pt states she tries to climb [facility] Other (1 source)patient allergy list reviewed by nurse or physiciaPropensity to adverse vmmstfexs43-54-8932Nipsdik:[facility] Other (20 sources)Prochlorperazine; Translations: [PROCHLORPERAZINE EDISYLATE]Drug Wekenqm76-23-4912Srmdhlcdq Clinic (20 sources)Prochlorperazine; Translations: [PROCHLORPERAZINE]Drug Allergy 28-71-2147Plzxbwv, Hives, Palpitations, Rash, UnknownMercy Health St. Charles HospitalComment on above:Onset Date: 09/06/2016; Reaction: Comment:psychological changes--pt states she tries to climb [employer] (20 sources)LatexAllergy to jvrnvnijk31-01-4469Cvfmb, Rash, UnknownNOMS Healthcare (1 source)LatexDrug allergy (disorder)32-67-3224VotrvycakMercy Health St. Charles Hospital Repository Medications Current Medications MedicationDrug Class(es)DatesSig (Normalized)Sig (Original)[id number] 200 actuat albuterol 0.09 mg/actuat metered dose inhaler (20 sources)beta2-Adrenergic AgonistStart: 07-06-2023 End: 04-35-1541akda 2 puff(s) by inhalation every four hours as needed for wheezingAlbuterol Sulfate 90 mcg/actuation HFA aerosol inhaler Active 2 INH INHALATION Every 4 hours as needed for shortness of breath or wheezing August 29, 2023 11:12am FreeTextSi puff Inhalation every 4 hrs prn; Note: Source Status: Taking; Refills: 1; Qty: 1 Each; Provider: Jason Valadez: 32-39-4141pkqq 2 puff(s) by inhalation every four hours as neededAlbuterol Sulfate HFA 108 (90 Base) MCG/ACT 2 puff Inhalation every 4 hrs prn September, ActiveStart: 95-33-3792lusv 2 puff(s) by inhalation every four hours as needed Albuterol Sulfate HFA 108 (90 Base) MCG/ACT 2 puff Inhalation every 4 hrs prn September, ActiveStart: 57-29-6228asva 2 puff(s) by inhalation every four hours as neededAlbuterol Sulfate HFA 108 (90 Base) MCG/ACT 2 puffs as needed Inhalation every 4 hrs for 30 days 2020 Not-Takingtake 2 puff(s) by inhalation every six hoursalbuterol HFA 90 mcg/act inhaler Inhale 2 puffs every 6 (six) hours if needed Activetake 2 puff(s) by inhalation every six hours as needed for wheezingalbuterol HFA (PROVENTIL HFA) inhaler Inhale 2 Puffs as instructed every 6 hours as needed for wheezing/shortness of breath. Active Comment on above:Inhale 2 Puffs as instructed every 6 hours as needed for wheezing/shortness of breath.ascorbic acid 250 mg oral tablet (20 sources)Vitamin CStart: 22-03-5461ditf 1 tablet by mouth once dailyAscorbic Acid (Vitamin C) 250 mg tablet Active 250 MG PO Daily July 06, 2023 1:00am FreeTextSi tablet Orally Once a day; Note: Source Status: Taking; Provider: Emi Hutson ( )ascorbic acid (VITAMIN C ORAL) Take by mouth. Activetake 1 tablet by mouth every twenty-four hoursVitamin C 250 MG 1 tablet Orally Once a day Activeascorbic acid (VITAMIN C ORAL) Take by mouth. 0 Active Comment on above:Take by mouth.ascorbic acid (Vitamin C) 500 mg/mL oral liquid (20 sources)ascorbic acid (Vitamin C) 500 mg/mL oral liquid Take by mouth Active ascorbic acid (Vitamin C) 500 mg/mL oral liquid Take by mouth. Activeascorbic acid 60 mg / cuprous oxide 2 mg / dl-alpha tocopheryl acetate 30 mg / lutein 6 mg / zinc oxide 15 mg oral capsule (12 sources)Vitamin CMultiple Vitamins-Minerals (Multi Complete) capsule Active aspirin 81 mg chewable tablet (20 sources)Platelet Aggregation Inhibitor, Nonsteroidal Anti-inflammatory Drug Start: 07-08-2023 End: 77-67-3542Qwqpoyf Low Dose 81 MG chewable tablet Chew 81 mg 1 (one) time 08/30/2023 Activeaspirin, enteric coated (ASPIRIN, ENTERIC COATED) 81 mg EC tablet Take 81 mg by mouth. Activeatorvastatin 40 mg oral tablet (20 sources)HMG-CoA Reductase InhibitorStart: 51-60-3573uxsiqdzhvitp (LIPITOR) 40 mg tablet Atorvastatin Active 40 MG PO Daily July 08, 2023 12:00am 07/08/2023 ActiveStart: 07-08-2023 End: 81-88-0165aitf 1 tablet by mouth once dailyAtorvastatin 40 mg tablet Discontinued 40 MG PO Daily March 06, 2024 8:39am August 21, 2024 1:34pm End: 02-34-4985qmyckmcodwgp (Lipitor) 20 MG tablet 1 (one) time each day at the same time 02/11/2025 Discontinued (Therapy completed)azithromycin 250 mg oral tablet (2 sources)Macrolide AntimicrobialStart: 06-26-2024 End: 35-06-2693pxan 1 tablet by mouth once dailyazithromycin (Zithromax) 250 MG tablet Indications: Acute bronchitis, unspecified organism Take 1 tablet (250 mg) by mouth Daily for 5 days 6 tablet 06/26/2024 07/01/2024 ActiveB Complex Vitamins (vitamin B complex) tablet (20 sources)B Complex Vitamins (vitamin B complex) tablet ActiveB Complex Vitamins (vitamin B complex) tablet as directed Orally ActiveB-complex with vitamin C (VITAMIN B COMPLEX-C ORAL) (20 sources)B-complex with vitamin C (VITAMIN B COMPLEX-C ORAL) Take by mouth. ActiveB-complex with vitamin C (VITAMIN B COMPLEX-C ORAL) Take by mouth. 0 ActiveComment on above:Take by mouth.busPIRone (9 sources)Start: 08-36-4412Bwkaakzxd 10 mg tablet Active 0 .ROUTE .COMPLEX 180 August 21, 2024 8:27am TAKE 1 TABLET TWICE A DAY NEEDED FOR ANXIETYStart: 04-24-2024 End: 06-59-4977nkzj 1 tablet by mouth twice daily as needed for anxietyBuspirone 10 mg tablet Discontinued 10 MG PO Twice daily as needed for anxiety 180 May 22, 2024 9:42am August 21, 2024 8:27amcelecoxib 200 mg oral capsule (20 sources)Nonsteroidal Anti-inflammatory DrugStart: 09-22-2023 End: 55-69-3948zmna 1 capsule by mouth once dailycelecoxib (CeleBREX) 200 MG capsule Take 200 mg by mouth Daily 09/22/2023 Activecodeine phosphate 2 mg/ml / guaiFENesin 20 mg/ml / pseudoephedrine hydrochloride 6 mg/ml oral solution (4 sources)alpha-Adrenergic Agonist, Opioid AgonistStart: 06-26-2024 End: 95-62-6397vbeg 10 mL by mouth at vdhtfovjajxsnvfumaxhhz-qpqrxhl-fjllYMYnkri (Mytussin DAC) 30-10-100 MG/5ML solution Indications: Acute cough Take 10 mL by mouth at bedtime for 10 days 100 mL 06/26/2024 07/06/2024 Active dextromethorphan hydrobromide 15 mg / guaiFENesin 400 mg / pseudoephedrine hydrochloride 60 mg oraltablet (2 sources)alpha-Adrenergic Agonist, Uncompetitive E-rqwroc-O-aspartate Receptor Antagonist, Sigma-1 AgonistStart: 06-26-2024 End: 55-86-3523uullvbpwhjdujdo-DM-GG 60-15-400 MG tablet Indications: Acute cough Take 1 tablet by mouth in the morning and 1 tablet at noon and 1 tablet in the evening and 1 tablet before bedtime. Do all this for 10 days. 40 tablet 06/26/2024 07/06/2024 Activeempagliflozin 25 mg oral tablet (13 sources)Sodium-Glucose Cotransporter 2 InhibitorStart: 10-15-2024 End: 76-57-0139chwv 1 tablet by mouth once dailyempagliflozin (Jardiance) 25 MG Indications: Type 2 diabetes mellitus with hyperglycemia, without long-term current use of insulin (HCC) Take 1 tablet (25 mg) by mouth Daily 90 tablet 3 02/28/2025 05/29/2025 Activeesomeprazole 20 mg delayed release oral capsule (20 sources)Proton Pump InhibitorStart: 07-06-2023 End: 62-76-0630gzft 1 capsule by mouth once dailyEsomeprazole Magnesium (Nexium) 20 mg capsule,delayed release(DR/EC) Active 40 MG PO Daily October 31, 2023 2:23pm FreeTextSi capsule Orally Once a day; Note: Source Status: Taking; Provider: Jason Marcial on above:Take 20 mg by mouth once daily. Eucalyptus Oil oil (20 sources)Eucalyptus Oil oil ActiveEucalyptus Oil oil as directed Activefolic acid 1 mg oral tablet (20 sources)Start: 10-03-2023 End: 02-88-9302mfzyh acid 1 mg tablet Indications: Anemia, unspecified type TAKE 1 TABLET DAILY 90 tablet 3 12/14/2024 ActiveHomeopathic Products (Frankincense Uplifting) oil (20 sources)Homeopathic Products (Frankincense Uplifting) oil ActiveHomeopathic Products (Frankincense Uplifting) oil as directed Inhalation Activelisinopril 5 mg oral tablet (20 sources)Angiotensin Converting Enzyme InhibitorStart: 07-08-2023 End: 23-22-7073jkrn 1 tablet by mouth once dailylisinopril (ZESTRIL) 5 mg tablet Take 5 mg by mouth once daily. 07/08/2023 Activelosartan potassium 50 mg oral tablet (20 sources)Angiotensin 2 Receptor BlockerStart: 02-06-2024 End: 50-78-4328xxfz 1 tablet by mouth at bedtimeLosartan 50 mg tablet Active 50 MG PO Bedtime September 24, 2024 12:00amStart: 10-31-2023 End: 32-28-9862hddd 1 tablet by mouth once dailyLosartan 25 mg tablet Discontinued 25 MG PO Daily 90 90 December 30, 2023 8:04am February 06, 2024 2:22pmMecobalamin (Vitamin B12) 10,000 mcg recon soln (3 sources)Start: 57-75-0552stjlmk 74921 ug by intramuscular injection every monthMecobalamin (Vitamin B12) 10,000 mcg recon soln Active 38370 MCG IM .q month February 29, 2024 12:00amStart: 43-15-1236Urxtseeyvtg (Vitamin B12) 10,000 mcg recon soln Active MCG IM February 29, 2024 12:00ammetFORMIN hydrochloride 1000 mg oral tablet (20 sources)BiguanideStart: 47-59-8752Oamblytjg 1,000 mg tablet Active 0 .ROUTE .COMPLEX 180 October 13, 2023 8:44am TAKE 1 TABLET TWICE A DAY WITH MEALSStart: 63-70-7159Vcrtwkwau Active 0 .ROUTE .COMPLEX 180 October 13, 2023 8:44am TAKE 1 TABLET TWICE A DAY WITH MEALSStart: 10-07-2022 End: 01-18-5203pulc 1 tablet by mouth in the morningmetFORMIN (Glucophage) 1000 MG tablet Indications: Type 2 diabetes mellitus with hyperglycemia, without long-term current use of insulin ([facility]) Take 1 tablet (1,000 mg) by mouth in the morning and 1 tablet (1,000 mg) in the evening. Take with meals. 180 tablet 1 02/11/2025 05/12/2025 Activetake 1 tablet by mouth every twenty-four hours metFORMIN HCl 1000 MG 1 tablet with a meal Orally Once a day Not-Takingtake 1 tablet by mouth twice dailymetFORMIN HCl 850 mg TAKE 1 TABLET BY MOUTH TWICE DAILY for 90 ActiveComment on above:Take 1,000 mg by mouth twice daily with meals.metroNIDAZOLE 500 mg oral tablet (2 sources)Nitroimidazole AntimicrobialStart: 10-22-2024 End: 50-78-2381xyjx 1 tablet by mouth in the morningmetroNIDAZOLE (Flagyl) 500 MG tablet Indications: Acute vaginitis , Vaginal discharge , Vaginal infl ammation from pessary, initial encounter ([facility]) Take 1 tablet (500 mg) by mouth in the morning and 1 tablet (500 mg) before bedtime. Do all this for 7 days. 14 tablet 10/22/2024 10/29/2024 ActiveMultiple Vitamins-Minerals (Multi Complete) capsule (14 sources)Multiple Vitamins-Minerals (Multi Complete) capsule Orally Active nitroglycerin 0.4 mg sublingual tablet (20 sources)Nitrate VasodilatorStart: 07-08-2023 End: 42-16-9249cymh 1 tablet under the tongue every twenty-four hours as needed nitroglycerin (Nitrostat) 0.[address] 0.4 mg under the tongue Daily as needed 07/08/2023ctiverosuvastatin calcium 10 mg oral tablet (4 sources)HMG-CoA Reductase InhibitorStart: 02-11-2025 End: 14-24-2118bsmo 1 tablet by mouth once dailyrosuvastatin (Crestor) 10 MG tablet Indications: Hyperlipemia, mixed Take 1 tablet (10 mg) by mouthDaily 90 tablet 3 02/11/2025 02/11/2026 Activesolifenacin succinate 10 mg oral tablet (20 sources)Cholinergic Muscarinic AntagonistStart: 04-11-2024 End: 11-36-1098wpchluqofov (VESIcare) 10 MG tablet Indications: Mixed urge and stress incontinence TAKE 1 TABLET DAILY 90 tablet 4 12/18/2024 Active Completed/Discontinued Medications MedicationDrug Class(es)DatesSig (Normalized)Sig (Original)amoxicillin 875 mg / clavulanate 125 mg oral tablet (1 source)Penicillin-class AntibacterialStart: 97-62-1019axzt 1 tablet by mouth every twelve hoursAmoxicillin-Pot Clavulanate 875-125 MG 1 tablet Orally every 12 hrs for 10 day(s) September, Not-Takingclopidogrel 75 mg oral tablet (20 sources)P2Y12 Platelet InhibitorStart: 11-23-2023 End: 69-08-7007ggdc 1 tablet by mouth in the morningPlavix 75 MG tablet Take 75 mg by mouth in the morning. 11/23/2023 10/22/2024 Discontinued (Therapy completed)Start: 10-31-2023 End: 98-94-2297Zgywhidzocm (Plavix) 75 mg tablet Discontinued 75 MG PO Daily 90 90 October 31, 2023 12:00am December 27, 2023 4:07pm give Plavix 600 mg X1, then 75 mg daily after.dexamethasone 1 mg/ml / neomycin 3.5 mg/ml / polymyxin b 72402 unt/ml ophthalmic suspension (1 source)Aminoglycoside Antibacterial, Polymyxin-class Antibacterial, CorticosteroidStart: 72-43-3073mpsr 2 drop(s) into the eye(s) three times daily Maxitrol 3.5-03137-1.1 2 drops into affected eye Ophthalmic Three times a day for 7 days Feb, Not-TakingDiclofenac (3 sources)Nonsteroidal Anti-inflammatory DrugStart: 06-05-2024 End: 45-07-5609Arkjuxxfon Sodium (Voltaren Arthritis Pain) 1 % gel Discontinued 4 GM TOPICAL Four times daily June 05, 2024 1:00am September 24, 2024 10:45am apply to single knee, ankle, foot; for foot includes sole/toes/top of footStart: 10-43-8631Azmcrsngob Sodium (Voltaren Arthritis Pain) 1 % gel Active 4 GM TOPICAL Four times daily June 05, 2024 1:00am apply to single knee, ankle, foot; for foot includes sole/toes/top of footfamotidine 20 mg oral tablet (8 sources)Histamine-2 Receptor AntagonistStart: 01-19-2024 End: 03-87-4418dbqn 1 tablet by mouth at bedtimefamotidine (Pepcid) 20 MG tablet Indications: LPRD (laryngopharyngeal reflux disease) Take 1 tablet(20 mg) by mouth at bedtime 90 tablet 01/19/2024 03/22/2024 DiscontinuedStart: 10-31-2023 End: 94-79-0587psmg 1 tablet by mouth once daily at bedtimeFamotidine (Pepcid) 40 mg tablet Discontinued 40 MG PO Daily at bedtime October 31, 2023 12:00am Sept 2023 2:01pm5 ml iron sucrose 20 mg/ml injection (5 sources)Parenteral Iron ReplacementStart: 04-10-2024 End: 99-81-0162929 mg, INTRAVENOUS, ONCE, 1 dose, On Tue04/10/24 at 1530, Please conduct a 30 minute post dose observation.Start: 04-05-2024 End: 51-31-1623775 mg, INTRAVENOUS, ONCE, 1 dose, On Tue04/05/24 at 1530, Please conduct a 30 minute post dose observation.Start: 04-03-2024 End: 70-77-5621765 mg, INTRAVENOUS, ONCE, 1 dose, On Tue04/03/24 at 1530, Please conduct a 30 minute post dose observation.Start: 03-29-2024 End: 65-37-1809371 mg, INTRAVENOUS, ONCE, 1 dose, On Tue03/29/24 at 1530, Please conduct a 30 minute post dose observation.Start: 03-27-2024 End: mg, INTRAVENOUS, ONCE, 1 dose, On Tue03/27/24 at 1530, Please conduct a 30 minute post dose observation.Ketoprofen (1 source)Nonsteroidal Anti-inflammatory DrugKetoprofen Not-Takinglevothyroxine (1 source)l-ThyroxineLevothyroxine Sodium Not-TakingmethylPREDNISolone (15 sources)CorticosteroidStart: 06-26-2024 End: 02-93-1677jcfwgzHSYPCTRpdrgi (Medrol Dospak) 4 MG tablets Indications: Acute bronchitis, unspecified organismFollow schedule on package instructions 21 tablet 06/26/2024 10/22/2024 Discontinued (Therapy completed)Start: 06-26-2024 methylPREDNISolone (Medrol Dospak) 4 MG tablets Indications: Acute bronchitis, unspecified organismFollow schedule on package instructions 21 tablet 06/26/2024 ActiveStart: 05-30-2024 End: 38-23-0350wnymhvCSQTDHFistlh (Medrol Dospak) 4 MG tablets Indications: Acute left-sided low back pain with bilateral sciatica , Struck by horse, initial encounter Follow schedule on package instructions 21 tablet 05/30/2024 06/26/2024 Discontinued (Therapy completed)Start: 79-28-7646soccksJKLIIVMztzwu (Medrol Dospak) 4 MG tablets Indications: Acute left-sided low back pain with bilateral sciatica , Struck by horse, initial encounter Follow schedule on package instructions 21 tablet 05/30/2024 ActiveStart: 02-87-8835Mzemmt 4 MG as directed Orally for 6 days September, Not-Takingmetoprolol tartrate 50 mg oral tablet (1 source)beta-Adrenergic Blockertake 1 tablet by mouth every twelve hours Lopressor 50 MG 1 tablet with food Orally Twice a day Not-Takingomeprazole 40 mg delayed release oral capsule (3 sources)Proton Pump InhibitorStart: 01-19-2024 End: 39-96-5086hxgt 1 capsule by mouth before mealtimeomeprazole (PriLOSEC) [address] capsule Indications: LPRD (laryngopharyngeal reflux disease) Take 1 c apsule (40 mg) by mouth in the morning. Take before meals. Do not crush or chew.. 90 capsule 01/19/2024 03/22/2024 DiscontinuedpredniSONE 5 mg oral tablet (5 sources)Start: 06-05-2024 End: 77-35-1247Oxbfcpnrhr 5 mg tablet Discontinued 5 MG PO daily 30 June 05, 2024 1:00am September 24, 2024 10:46am Take 5 pills by mouth x2 days, take 4 pills by mouth x2 days, take 3 pills by mouth x2 days, take 2 pills by mouth x2 days, take 1 pill by mouth x2 days.Start: 98-17-4229xlmr 2 tablets by mouth every twenty-four hourspredniSONE 20 MG 2 tablets Orally Once a day for 5 days Oct, ActiveStart: 21-04-0029kjze 2 tablets by mouth every twenty-four hourspredniSONE 20 MG 2 tablets Orally Once a day for 5 days September, Active sertraline 25 mg oral tablet (20 sources)Serotonin Reuptake InhibitorStart: 07-21-2023 End: 40-64-0951Xyraicooll 25 mg tablet Discontinued 0 .ROUTE .COMPLEX 90 February 08, 2024 10:22am June 20, 2024 11:15am TAKE 1 TABLET DAILY Start: 07-06-2023 End: 11-41-6413Upkscvhpjs 25 mg tablet Discontinued 25 MG PO Daily July 06, 2023 1:00am July 21, 2023 5:06pm FreeTextSig: TAKE 1 TABLET BY MOUTH DAILY Orally Once a day; Note: Source Status: Taking; Refills: 0; Provider: Jason Marcial on above:Take 25 mg by mouth once daily.ticagrelor 90 mg oral tablet (20 sources)Start: 07-08-2023 End: 49-27-9625sfwm 1 tablet by mouth twice dailyTicagrelor (Brilinta) 90 mg tablet Discontinued 90 MG PO Twice daily 180 July 26, 2023 3:10pm October 31, 2023 3:08pmTriamcinolone (12 sources)CorticosteroidStart: 67-84-5718QYWVFJZ - 10 mg Jul, 40 mg vitamin b12 1 mg/ml injectable solution (17 sources)Vitamin M82Dchkx: 01-17-2025 End: 71-48-2350toucyp 1 dose by intramuscular injection once1,000 mcg, INTRAMUSCULAR, ONCE, 1 dose, On Sonia 01/17/25 at 1400Start: 11-21-2024 End: 07-34-3712nqpzef 1 dose by intramuscular injection once1,000 mcg, INTRAMUSCULAR, ONCE, 1 dose, On Tue11/21/24 at 1430Start: 10-24-2024 End: 24-49-6715fqqhlm 1 dose by intramuscular injection once1,000 mcg, INTRAMUSCULAR, ONCE, 1 dose, On Tue10/24/24 at 1430Start: 09-27-2024 End: 31-72-6840tkvqkr 1 dose by intramuscular injection once1,000 mcg, INTRAMUSCULAR, ONCE, 1 dose, On Tue09/27/24 at 1530Start: 08-29-2024 End: 29-84-5511skzodk 1 dose by intramuscular injection once1,000 mcg, INTRAMUSCULAR, ONCE, 1 dose, On Tue08/29/24 at 1430Start: 07-31-2024 End: 18-29-0283qzfnne 1 dose by intramuscular injection once1,000 mcg, INTRAMUSCULAR, ONCE, 1 dose, On Tue07/31/24 at 1500Start: 07-03-2024 End: 35-77-5668aidgrr 1 dose by intramuscular injection once1,000 mcg, INTRAMUSCULAR, ONCE, 1 dose, On Tue07/03/24 at 1430Start: 06-06-2024 End: 42-15-9539pnvmba 1 dose by intramuscular injection once1,000 mcg, INTRAMUSCULAR, ONCE, 1 dose, On Tue06/06/24 at 1500Start: 05-10-2024 End: 98-46-8135szkuqp 1 dose by intramuscular injection once1,000 mcg, INTRAMUSCULAR, ONCE, 1 dose, On Tue05/10/24 at 1400Start: 04-05-2024 End: 58-84-0022hhcmyy 1 dose by intramuscular injection once1,000 mcg, INTRAMUSCULAR, ONCE, 1 dose, On Tue04/05/24 at 1530Start: 03-14-2024 End: 72-50-3033vixcvm 1 dose by intramuscular injection once1,000 mcg, INTRAMUSCULAR, ONCE, 1 dose, On Tue03/14/24 at 1500Start: 02-15-2024 End: 00-08-7408vznyvy 1 dose by intramuscular injection once1,000 mcg, INTRAMUSCULAR, ONCE, 1 dose, On Tue02/15/24 at 1500Start: 01-18-2024 End: 29-50-1396tbvyfv 1 dose by intramuscular injection once1,000 mcg, INTRAMUSCULAR, ONCE, 1 dose, On Tue01/18/24 at 1430Start: 12-21-2023 End: 32-61-0364cyirpgbmsxcxms 1,000 mcg injectionStart: 11-28-2023 End: 35-75-4977kdgtxqqlwaoneo 1,000 mcg injectionStart: 10-31-2023 End: 36-02-8815bldgebyeqmxkbu 1,000 mcg injectionStart: 10-03-2023 End: 17-78-0895frwqycvkjzbgst 1,000 mcg injection Problems Active Problems Problem ClassificationProblemDateDocumented DateEpisodic/ChronicAcute bronchitis (2 sources)Acute bronchitis; Translations: [Acute bronchitis, unspecified] 01-23-4713QkqcyxgjZvkazvjtlzccmm/social admission (4 sources)Patient encounter status; Translations: [Dietary counseling and surveillance]31-67-2317BzxgolrqPleufhp disorders (20 sources)Generalized anxiety disorder; Translations: [Generalized anxiety disorder]Onset: 27-54-1044BxryxvxXjqthhsxq and vision defects (20 sources)Visual impairment; Translations: [Unspecified visual loss]Onset: 613615-31-8961YvbplweFzckgia dysrhythmias (3 sources)Palpitations; Translations: [Palpitations]EpisodicComplication of device; implant or graft (2 sources)Vaginitis; Translations: [Infection and inflammatory reaction due to other prosthetic device, implant and graft in genital tract, initial encounter] 66-60-2627KhppliaeYbvarwfa atherosclerosis and other heart disease (20 sources)Angina pectoris; Translations: [Angina pectoris, unspecified]Onset: 843608-70-0497AcnlamaXeoxvzg on above:twingesCoronary atherosclerosis and other heart disease (10 sources)Patient post percutaneous transluminal coronary angioplasty; Translations: [Coronary angioplasty status]31-26-7836SbtpfmpcWxuixesmet and other anemia (4 sources)Anemia, unspecified; Translations: [Anemia, unspecified type]Onset: 07-12-6775ItbaplprPwcwosaeam and other anemia (4 sources)Anemia; Translations: [Anemia, unspecified]90-27-9168Oiyarkrq Deficiency and other anemia (3 sources)Iron deficiency anemia; Translations: [Iron deficiency anemia, unspecified]EpisodicDeficiency and other anemia (1 source)Iron deficiency anemia, unspecifiedEpisodicDeficiency and other anemia (6 sources)Megaloblastic anemia due to vitamin B>12< deficiency; Translations: [Other megaloblastic anemias, not elsewhere classified]83-34-6540Igchjtjs Diabetes mellitus with complications (20 sources)Type 2 diabetes mellitus with hyperglycemia; Translations: [Type 2 diabetes mellitus]Onset: 05-74-6704FoalmjwAtxtwark of white blood cells (2 sources)Leukocytosis; Translations: [Other elevated white blood cell count] Onset: 173965-37-9338FzchknhVetzwmkkq of lipid metabolism (20 sources)Pure hypercholesterolemia; Translations: [Pure hypercholesterolemia, unspecified]Onset: 02-03-2018 Resolved: 12-22-9013PxycuqiT Codes: Natural/environment (2 sources)Struck by horse, initial encounter; Translations: [Other specified injury caused by animal]19-21-8027OmzopoqkFhihdvptxe disorders (15 sources)Esophageal reflux finding; Translations: [Esophageal reflux]Onset: 02-03-2018 Resolved: 910544-97-6888VevlaahWtxpyspox hypertension (4 sources)Essential hypertension; Translations: [Essential (primary) hypertension]26-51-8054IetfqasOnlqfapwukvgj symptoms and ill-defined conditions (20 sources)Urinary incontinence; Translations: [Unspecified urinary incontinence]62-45-8622FtwvtvfCdsycraknsool symptoms and ill-defined conditions (8 sources)Dysuria; Translations: [Dysuria]EpisodicHeadache; including migraine (1 source)Headache; including migraineOnset: 09-82-8879Aspwhtnjamix diseases of female pelvic organs (2 sources)Acute vaginitis; Translations: [Acute vaginitis]65-20-1558Jvzcfiem Malaise and fatigue (19 sources)Fatigue; Translations: [Chronic fatigue, unspecified]Onset: 14-14-8244WfcxbrdAxpwlpl and fatigue (16 sources)Other fatigue; Translations: [Fatigue]Onset: 23-04-0162Kajbguib Menopausal disorders (20 sources)Postmenopausal bleeding; Translations: [Postmenopausal bleeding] Onset: 293673-74-1059FsygmquCybk disorders (7 sources)Depressive disorder; Translations: [Depression]15-42-4626Hgwotnh Nausea and vomiting (1 source)VomitingOnset: 15-29-2609AdrblhktMsobxoshgyaul gastroenteritis (1 source)Noninfective gastroenteritis and colitis, unspecified; Translations: [Noninfective gastroenteritis and colitis, unspecified]Onset: 91-19-0196Kqwhabkl Nutritional deficiencies (4 sources)Vitamin D deficiency; Translations: [Vitamin D deficiency, unspecified]87-07-6623UgxrhemMrnoq circulatory disease (8 sources)Elevated blood-pressure reading without diagnosis of hypertension; Translations: [Elevated blood-pressure reading, without diagnosis of hypertension]EpisodicOther connective tissue disease (5 sources)Pain in thumb ; Translations: [Pain in left finger(s)]02-08-2024 EpisodicOther female genital disorders (2 sources)Vaginal discharge; Translations: [Other specified noninflammatory disorders of vagina]54-57-5066XhnfqquzZiklg gastrointestinal disorders (1 source)DiarrheaOnset: 12-53-5981YjhipquxDxcpi gastrointestinal disorders (3 sources)Dysphagia; Translations: [Dysphagia, unspecified]61-34-9121Jsxvxliw Other gastrointestinal disorders (1 source)Dysphagia, unspecified; Translations: [Dysphagia, unspecified]Onset: 92-77-4175TqcvklsmRowwo lower respiratory disease (5 sources)Chronic cough; Translations: [Chronic cough]73-76-6018ThtluabxJypvu lower respiratory disease (2 sources)Cough; Translations: [Acute cough]91-17-8569ArotzfxaCxdfu lower respiratory disease (1 source)Dyspnea, unspecified; Translations: [Dyspnea, unspecified]Onset: 04-15-0255EhurgjjwYpqyq nervous system disorders (12 sources)Cubital tunnel syndrome; Translations: [Lesion of ulnar nerve, right upper limb]ChronicOther non-traumatic joint disorders (3 sources)Ankle instability; Translations: [Other instability, unspecified ankle]56-30-7128AgbevbcqShykp non-traumatic joint disorders (1 source)Other instability, unspecified ankle; Translations: [Other joint derangement, not elsewhere classified, ankle and foot]41-84-0622NbxyergwWtmit non-traumatic joint disorders (1 source)Pain in unspecified joint; Translations: [Polyarthralgia]Onset: 96-89-0523GwfninmnUefdv nutritional; endocrine; and metabolic disorders (8 sources)Obese class I; Translations: [Body mass index (BMI) 32.0-32.9, adult] ChronicOther nutritional; endocrine; and metabolic disorders (20 sources)Obesity; Translations: [Obesity, unspecified]Onset: 10-25-2023 09-89-6264TecgbccDqrkv nutritional; endocrine; and metabolic disorders (4 sources)Obesity caused by energy imbalance; Translations: [Class 1 obesity due to excess calories with serious comorbidity and body mass index (BMI) of 33.0 to 33.9 in adult]24-37-8365BuqnppyZcmtk upper respiratory infections (20 sources)Chronic sinusitis; Translations: [Chronic sinusitis, unspecified] Onset: 245069-23-7109EhynaabXmvqbonl of female genital organs (12 sources)Midline cystocele; Translations: [Cystocele, midline]03-22-2024 ChronicPulmonary heart disease (1 source)Pulmonary hypertension, unspecified; Translations: [Pulmonary hypertension, unspecified]Onset: 03-85-1363XjoheixQglxjuwhohlhns care; fitting of prostheses; and adjustment of devices (12 sources)Patient encounter status; Translations: [Encounter for fitting and adjustment of other specified devices]25-93-6354HbmalvkZjiknjvz codes; unclassified (5 sources)Obstructive sleep apnea (adult) (pediatric); Translations: [OBSTRUCTIVE SLEEP APNEA]Onset: 63-75-5019EhzbmjvTvzjiuto codes; unclassified (20 sources)Obstructive sleep apnea syndrome; Translations: [Obstructive sleep apnea (adult) (pediatric)]Onset: 806670-77-2209WzbtvilUjzmhaxa codes; unclassified (8 sources)Postmenopausal state; Translations: [Asymptomatic menopausal state] EpisodicSpondylosis; intervertebral disc disorders; other back problems (1 source)Spondylosis without myelopathy or radiculopathy, cervical region; Translations: [SPONDYLS W/O MYELO-/RADICULOP CERV]Onset: 94-93-5090Jlvcdac Spondylosis; intervertebral disc disorders; other back problems (4 sources)Cervicalgia; Translations: [Acute back pain with sciatica]Onset: 11-37-9031YegurbhxYigqxietnmj injury; contusion (4 sources)Hematoma of right hip region; Translations: [Contusion of right hip, initial encounter]87-01-0934ObjrjewrJxmtwiz disorders (20 sources)Hypothyroidism; Translations: [Hypothyroidism, unspecified]Onset: 51-62-1155EvwcksoCjqxpvdbcwwb (1 source)OPENED IN SNZLK05-20-0239Jxkejlsekqpg (1 source)Elevated transaminase level; Translations: [Elevated transaminase level]Onset: 05-12-1702Haxehym tract infections (8 sources)Urinary tract infectious disease; Translations: [Urinary tract infection, site not specified]Episodic Past or Other Problems Problem ClassificationProblemDateDocumented DateEpisodic/ChronicAbdominal pain (8 sources)Generalized abdominal pain; Translations: [Generalized abdominal pain]Onset: 02-09-2018 Resolved: 64-54-3117BbqlxjyiKxebkobw foot deformities (20 sources)Acquired cavus deformity of left foot; Translations: [Other acquired deformities of left foot]Onset: 453540-24-0375VexfiakfIrnkqryp reactions (20 sources)Contact dermatitis due to plants; Translations: [Unspecified contact dermatitis due to plants, except food]Onset: 150758-88-7034ZuptiopkEblrur of cervix (20 sources)Cervicovaginal cytology: Low grade squamous intraepithelial lesion; Translations: [Low grade squamous intraepithelial lesion on cytologic smear of cervix (LGSIL)]Onset: 918827-02-2918UsrqshzvIjxtfjzoyz and other anemia (20 sources)Iron deficiency anemia secondary to inadequate dietary iron intake; Translations: [Other iron deficiency anemias]Onset: 536798-56-8063Ragknczm Deficiency and other anemia (1 source)Other megaloblastic anemias, not elsewhere classified; Translations: [Megaloblastic anemia due to vitamin B12 deficiency]Onset: 23-59-3054Cobckkwf Deficiency and other anemia (1 source)Other iron deficiency anemias; Translations: [Iron deficiency anemia secondary to inadequate dietary iron intake]Onset: 10-39-1795QiokdqcuHfegrldh mellitus without complication (20 sources)Hyperglycemia; Translations: [Other abnormal glucose]Onset: 66-89-9750LbhmkjgtFsnzsqnh; including migraine (8 sources)Migraine without aura, not refractory ; Translations: [Migraine, unspecified, not intractable, without status migrainosus]Onset: 02-03-2018 Resolved: 91-33-9643LdlblbgQlwipsgaursyw and screening for infectious disease (1 source)Encounter for screening for human papillomavirus (HPV); Translations: [ENC SCREENING HUMAN PAPILLOMAVIRUS]Onset: 87-86-3132LzvnlpvwPeoyxuufiyd deficiencies (7 sources)Folic acid deficiency; Translations: [Deficiency of other specified B group vitamins]Onset: 217838-11-4478HbpsnakzZwrvd connective tissue disease (4 sources)Pain in left finger(s); Translations: [Pain in limb]Onset: 02-20-2024 38-25-2645CzsmrurlMdxpr female genital disorders (8 sources)Noninflammatory disorder of the vagina; Translations: [Other specified noninflammatory disorders ofvagina] Resolved: 40-08-3092IyqngcbkPalfq lower respiratory disease (8 sources)Disorder of lung; Translations: [Other diseases of lung, not elsewhere classified]Onset: 02-03-2018 Resolved: 03-55-4876RaawfwrkMvglg nervous system disorders (8 sources)Lesion of ulnar nerve; Translations: [Lesion of ulnar nerve]Onset: 02-03-2018 Resolved: 07-78-7952QderqgyNzxoy screening for suspected conditions (not mental disorders or infectious disease) (20 sources)Encounter for screening mammogram for malignant neoplasm of breast; Translations: [Encounter for screening for malignant neoplasm of cervix]Onset: 24-67-7397KlxposonChnea skin disorders (20 sources)Hidradenitis; Translations: [Hidradenitis suppurativa]Onset: 934297-60-3571YcnlqzsuQmybcunozdza (3 sources)Chronic cough R05.3Unclassified (2 sources)Chronic fatigue disorder G93.32Unclassified (1 source)History of COVID-19 Z86.16Viral infection (8 sources)Disease caused by 2019-nCoV; Translations: [COVID-19] Results Test NameValueInterpretationReference RangeFacilityUrinalysis macro (dipstick) panel (U)Ordered By: Dee Obrien on 43-00-1464Lyaqltvvi, UANegativeNegative - 4(70) +++ mg/dLNOMS HealthcareBlood, UANegativeNegative - 50 Tima/mcLNOMS HealthcareClarity, UAClearNOMS HealthcareColor, UAColorlessNOMS Healthcare Glucose, UAManyNegative - 2000(110) ++++ mg/dLNOMS HealthcareKetones, UANegative Negative - 160(16) ++++ mg/dLNOMS HealthcareLeukocytes, UATraceNegative - 500+++ Delvin/mcLNOMS HealthcareNitrite, UANegativeNegative - PositiveNOMS HealthcarepH, UA6.05 - 9NOMS HealthcareProtein, UANegativeNegative - 2000(20) ++++ mg/dLNOMS HealthcareSpec Grav, UA1.0051 - 1.03NOMS HealthcareUrobilinogen, UA1.00.2 - 12 mg/dLNOMS HealthcareNOMS HealthcareANA BY IFA WITH REFLEXon 70-83-2674Fefnzfr Ab Ql (S)NegativeNormalNegativeNorwalk Memorial Hospital on above:Order Comment: Specimen Type: BLOOD SPECIMENOrdering Facility: [facility] Address:[address] [place], [place] [address]Result Comment: Anti- nuclear antibody test is used as an aid in diagnosis of systemic autoimmune dis eases. Where positive and clinically warranted, follow-up using disease-specific testing is recommended. Low positive titers are not uncommon with advanced age, certain chronic infections, and malignancies among others. Test methodology: Indirect fluorescence immunoassay (IFA) using HEp-2 cells. Performed By: #### ANAIFR ####[facility] LABCLIA [id number] [place] [address] [place] AMERICACRP SerPl-mCncon 41-03-7264PKF [Mass/Vol]0.9 mg/dLHigh<0.9CProMedica Flower Hospital on above:Order Comment: Specimen Type: BLOOD SPECIMENOrdering Facility: [facility] Address:[address] [place], [place] [address]Performed By: #### 40457-7, 1987-09 ####[facility] LABCLIA [id number] [place] [address] [place] AMERICACyclic citrullinated peptide IgG Qnon 20-29-5536TJC ANTIBODY IGG QUALITATIVENegativeNormalNegativeNorwalk Memorial Hospital on above:Order Comment: Specimen Type: BLOOD SPECIMENOrdering Facility: [facility] Address:[address] [place], [place] [address]Performed By: #### 94605-2 ####[facility] LABCLIA [id number] [place] [address] [place] [facility] MED[facility] CENTERESR Westergren method (Bld) [Velocity]on 65-15-5978ASJ (Bld) [Velocity]30 mm/hHigh 0-20[facility] on above:Order Comment: Specimen Type: BLOOD SPECIMENOrdering Facility: [facility] Address:[address] [place], [place] [address]Performed By: #### 4537-7 ####[facility] LABCLIA [id number] [place] [address] [place] Hepatic function 2000 panelon 82-71-8327Kpjobbt [Mass/Vol]4.4 g/dLNormal3.9-4.9 [facility] on above:Order Comment: Specimen Type: BLOOD SPECIMENOrdering Facility: [facility] Address:[address] [place], [place] [address]Performed By: #### 39188-4 ####[facility] LABCLIA [id number] [place], [place] [address]TED [Catalytic activity/Vol]108 U/XOzyxol12-589GnxcylijeNorwalk Memorial Hospital on above:Order Comment: Specimen Type: BLOOD SPECIMENOrdering Facility: [facility] Address:[address] [place], [place] [address]Performed By: #### 51606- 3 ####[facility] LABCLIA [id number] [facility] ALICIA GIBBSDIAMOND CHILDREN'S MEDICAL CENTERHUAEDG[place], [place] [address]DFT [Catalytic activity/Vol]21 U/LNormal7-38[facility] on above:Order Comment: Specimen Type: BLOOD SPECIMENOrdering Facility: [facility] Address:[address] [place], [place] [address]Performed By: #### 54250-0 ####[facility] LABCLIA [id number] [place], [place] [address]OND [Catalytic activity/Vol]29 U/YJkkgws18-63UzpjvgetcPike Community Hospitalment on above:Order Comment: Specimen Type: BLOOD SPECIMENOrdering Facility: [facility] Address:[address] [place], [place] [address]Performed By: #### 92216- 3 ####[facility] LABCLIA [id number] [facility] [place], [place] [address]Zojsvtjne [Mass/Vol]0.3 mg/dLNormal0.2-1.3CProMedica Flower Hospital on above:Order Comment: Specimen Type: BLOOD SPECIMENOrdering Facility: [facility] Address:[address] [place], [place] [address]Performed By: #### 34777-5 ####[facility] LABCLIA [id number] [place] [address] Bilirubin.conjugated [Mass/Vol]0.1 mg/dLNormal<0.3COhio Valley Surgical Hospital Comment on above:Order Comment: Specimen Type: BLOOD SPECIMENOrdering Facility: [facility] Address:[address] [place] [address] Performed By: #### 04262-3 ####[facility] LABCLIA [id number] [place], [place] [address]Vrkvoig [Mass/Vol]7.3 g/dL Normal6.3-8.0[facility] on above:Order Comment: Specimen Type: BLOOD SPECIMENOrdering Facility: [facility] Address:[address] [place], [place] [address]Performed By: #### 79600-0 ####[facility] LABCLIA [id number] [place] [address] Rheumatoid fact SerPl-aCncon 22-60-6035Meoqcsayuk factor Qn[IU]/mLNormal<16 [facility] HospitalCom[facility] on above:Order Comment: Specimen Type: BLOOD SPECIMENOrdering Facility: [facility] Address:[address] [place], [place] [address]Performed By: #### 52350-7, 1987-09 ####[facility] LABCLIA [id number] [place] [address] [place] cCP IgG SerPl-aCncon 12-83-8725Ftfynw citrullinated peptide IgG Qn<15Normal<20 [facility] HospitalComment on above:Order Comment: Specimen Type: BLOOD SPECIMENOrdering Facility: [facility] Address:[address] [place], [place] [address]Performed By: #### 42358-8 ####[facility] LABCLIA [id number] [place] [address] [place] AMERICACNOVSPon 89-86-2861MVEMTEErvpt (SP) Office ([place]) JEANNETTE HURTADO ([id number]) 1965 F Date Time Provider Department 02/20/25 1:30 PM MAITE MERRITT During your visit today, we recorded the following information about you: Temperature Pulse Respiration Blood pressure 97.1 degrees 73/minute 16/minute 132/83 Weight 90.8 kg Maite Merritt PA-C 02/20/2025 2:05 PM Signed NAME: Jeannette Hurtado CLINIC NO.: [id number] DATE OF SERVICE: February 20, 2025 (Shaina) Some elements in this clinic note that are critical to medical decision making have been carefully reviewed and included from a prior clinic note dated: November 28, 2024 (Shaina) Referring Provider: Dr. Klaudia Gomez Additional Clinicians involved in Jeannette Hurtado's care: DIAGNOSIS: Anemia, fatigue ASSESSMENT: 59 year old woman with anemia and associated fatigue. She has obstructive sleep apnea but is compliant with CPAP. We advised her to have a cardiac workup done because the degree of anemia did not match the degree of fatigue. She ended up failing a stress test and now has two coronary stents. Cardiology just stopped her Plavix 08/2024. No iron needs at this time. She continues her folic acid daily and monthly B12 IM injections. Her WBC is mildly elevated at 13.16 -monitor Elevated transaminases-mild, recommend repeating in 2 weeks and if remain high, will need liver US, hep panel and GI referral She will return in 3 months with repeat labs. As for her chronic fatigue, I recommended seeing rheumatology as all other avenues seem to have been exhausted. Will refer to [facility] rheumatology - HPI: CASE HISTORY: Reverse Chronological Order 08/29/2024 - BCR/ABL1 negative and MPN panel negative 03/27/24-04/10/24 - venofer 1000 mg total given 10/02/24 - B12 IM monthly started 02/21/23-03/07/23 - venofer 900mg total given 01/05/2023 - CBC 9.2 > 11.2 / 35.6 < 277 11/12/2022 - Colonoscopy is negative. Recommended colonoscopy 10 years. Updated Visit, February 20, 2025: Adalgisa returns for 3 month follow up. She is taking her folic acid daily and getting her B12 injection monthly. Labs from 02/14/25 showed folate >20, B12 of 820, ferritin 310, TIBC 342 and transferrin saturation of 14.6%. Hemoglobin was normal at 14.2 and MCV was 94. WBC was slightly elevated at 13.16. Recently switched from lipitor to crestor but that was after the lab draw. Jardiance was new before the last lab draw. She started it about 3 months ago. No tylenol use, very little ETOH and none recently. Updated Visit, November 28, 2024: Adalgisa returns for 3 month follow up and remains on folic acid daily and B12 IM monthly. Most recent labs on 11/21/24 revealed normal WBC of 10.99, normal hgb 13.5 and MCV 96.0 and platelets of 252,000. In August her WBC were elevated and work up was completed. Her MPN and BCR/ABL1 were both negative. She still remains tired. She sleeps well. She is using her CPAP regularly. Updated Visit, August 29, 2024: Adalgisa returns for follow up. Remains on folic acid daily and B12 IM monthly. Still has fatigue. No fever, chills, nausea, vomiting, weight loss, lymph node enlargement or other symptoms. Plavix stopped last week by cardiology. WBC and neutrophils remain elevated. Iron studies remain stable. Updated Visit, June 06, 2024: Patient here for follow up. Received venofer 200 x 5 doses in March 2024. Her energy level has been better. Here for follow up. Remains on folic acid and gets her B12 injections monthly. She has fallen a few times since her last visit. She lost her balance. No dizziness. No loss of consciousness. No headaches. Some blurred vision at times. She is on a new medicine, solifenacin for urinary incontinence for 2 months and it is helping. Updated Visit, March 14, 2024: Patient is [...] also consider a women's health evaluation for (more content not included)...NormalKettering Health SpringfieldPNon 75-99-0038NCBLSuifcecxa ([place]) JEANNETTE HURTADO ([id number]) 1965 F Date Time Provider Department 02/20/25 MAITE MERRITT During your visit today, we recorded the following information about you: Toña Castro MA 02/20/2025 8:[address] orders if needed. MERVIN Pascual Mindy M, PA-C 02/20/2025 8:51 AM Signed She just had them on 02/14/25 Allergies As of Date: 02/20/2025 Noted Allergy Reaction COMPAZINE (PROCHLORPERAZINE EDISY*01/13/2005 LATEX 01/21/2023 16 - Unknown Date Reviewed: 02/20/2025 Reviewed by: Maite Merritt PA-C - Fully Assessed Reason for Visit: Lab Orders [[id number]] Prescriptions as of 03/04/2025 - rosuvastatin (CRESTOR) 10 mg tablet - empagliflozin (JARDIANCE) 10 mg tablet - folic acid 1 mg tablet TAKE 1 TABLET DAILY - solifenacin 10 mg tablet Take 1 tablet by mouth once daily. - aspirin, enteric coated (ASPIRIN, ENTERIC COATED) 81 mg EC tablet Take 81 mg by mouth. - lisinopril (ZESTRIL) 5 mg tablet Take [...] Sarmiento MA Problem List As Of Date 02/20/2025 Noted Resolved HIDRADENITIS [L73.2] 01/13/2005 Iron deficiency anemia secondary to inadequate *02/07/2023 Encounter Status:Closed by TOÑA CASTRO on 03/04/25NormalCTriHealth [facility] W Auto Differential panel (Bld)on 81-00-7862Qlbbikmoy (Bld) [#/Vol] 0.13 10*3/uLHigh<0.11CProMedica [facility]lower [facility] on above:Order Comment: Specimen Type: BLOOD SPECIMENOrdering Facility: [facility] Address:[address] [place], [place] [address]Performed By: #### 61399-9 ####[facility] LABCLIA [id number] [place], [place] [address]Nwbheklnc/100 WBC (Bld)1.0 %NormalNorwalk Memorial Hospital on above:Order Comment: Specimen Type: BLOOD SPECIMENOrdering Facility: [facility] Address:[address] [place], [place] [address]Performed By: #### 85632-1 ####[facility] LABCLIA [id number] [place], [place] [address]Whtbmaixaiwq cell count method Nom (Bld)AutoNormalCProMedica Flower Hospital on above:Order Comment: Specimen Type: BLOOD SPECIMENOrdering Facility: [facility] Address:[address] [place] [address]Performed By: #### 46211-7 ####[facility] LABCLIA [id number] [place], [place] [address]Krdytisqjbu (Bld) [#/Vol]1.53 10*3/uLHigh<0.46[facility] on above:Order Comment: Specimen Type: BLOOD SPECIMENOrdering Facility: [facility] Address:[address] [place], [place] [address]Performed By: #### 58409-9 ####[facility] LABIA [id number] [place], [place] [address]Nqolhrseyzr/100 WBC (Bld)11.6 %NormalNorwalk Memorial Hospital on above:Order Comment: Specimen Type: BLOOD SPECIMENOrdering Facility: [facility] Address:[address] [place], [place] [address]Performed By: #### 16038-0 ####[facility] LABCLIA [id number] [place], [place] [address]Lsakzhojuxm distribution width (RBC) [Ratio]12.7 %Normal 11.5-15.0[facility] on above:Order Comment: Specimen Type: BLOOD SPECIMENOrdering Facility: [facility] Address:[address] [place], [place] [address]Performed By: #### 83329-2 ####[facility] LABIA [id number] [place] [address] Hematocrit (Bld) [Volume fraction]42.3 %Zbpqaq46.0-46.0[facility] on above:Order Comment: Specimen Type: BLOOD SPECIMENOrdering Facility: [facility] Address:[address] [place], [place] [address]Performed By: #### 62788-0 ####[facility] LABCLIA [id number] [place], [place] [address]Yzeqrsylcm (Bld) [Mass/Vol]14.2 g/eYNevzje44.5-15.5CProMedica Flower Hospital on above:Order Comment: Specimen Type: BLOOD SPECIMENOrdering Facility: [facility] Address:[address] [place], [place] [address]Performed By: #### 81038-5 ####[facility] LABCLIA [id number] [place], [place] [address]Xstwfopq granulocytes (Bld) [#/Vol]0.04 10*3/uLNormal <0.10[facility] on above:Order Comment: Specimen Type: BLOOD SPECIMENOrdering Facility: [facility] Address:[address] [place], [place] [address]Performed By: #### 42852-9 ####[facility] LABIA [id number] [place], [place] [address]Vummzlel granulocytes/100 WBC (Bld)0.3 %NormalNorwalk Memorial Hospital on above: Order Comment: Specimen Type: BLOOD SPECIMENOrdering Facility: [facility] Address:[address] [place], [place] [address]Performed By: #### 89752- 8 ####[facility] LABIA [id number] [place], [place] [address]Zzslhgvrsvo (Bld) [#/Vol]3.75 10*3/uLNormal1.00-4.00 [facility] on above:Order Comment: Specimen Type: BLOOD SPECIMENOrdering Facility: [facility] Address:[address] [place], [place] [address]Performed By: #### 72120-0 ####[facility] LABIA [id number] [place], [place] [address]Ekhmgkkwemb/100 WBC (Bld)28.5 %NormalNorwalk Memorial Hospital on above:Order Comment: Specimen Type: BLOOD SPECIMENOrdering Facility: [facility] Address:[address] [place], [place] [address]Performed By: #### 26359-6 ####[facility] LABCLIA [id number] [place], [place] [address]BIU (RBC) [Entitic mass]31.7 moDkaqch13.0-34.0[facility] on above:Order Comment: Specimen Type: BLOOD SPECIMENOrdering Facility: [facility] Address:[address] [place], [place] [address]Performed By: #### 74314-1 ####[facility] LABCLIA [id number] [place], [place] [address]QZLS (RBC) [Mass/Vol]33.6 g/qAOpcqde75.5-36.0[facility] on above: Order Comment: Specimen Type: BLOOD SPECIMENOrdering Facility: [facility] Address:[address] [place], [place] [address]Performed By: #### 41034- 8 ####[facility] LABIA [id number] [place], [place] [address]RYW (RBC) [Entitic vol]94.4 zCKukriz11.0-100.0[facility] on above:Order Comment: Specimen Type: BLOOD SPECIMENOrdering Facility: [facility] Address:[address] [place], [place] [address]Performed By: #### 60022-6 ####[facility] LABIA [id number] [place], [place] [address]Kajetxdis (Bld) [#/Vol]0.77 10*3/uLNormal<0.87[facility] on above:Order Comment: Specimen Type: BLOOD SPECIMENOrdering Facility: [facility] Address:[address] [place], [place] [address]Performed By: #### 82046- 8 ####[facility] LABCLIA [id number] [place], [place] [address]Mrnbjajsd/100 WBC (Bld)5.9 %NormalNorwalk Memorial Hospital on above:Order Comment: Specimen Type: BLOOD SPECIMENOrdering Facility: [facility] Address:[address] [place], [place] [address]Performed By: #### 34473-0 ####[facility] LABCLIA [id number] [place], [place] [address]Berjsycijgf (Bld) [#/Vol]6.94 10*3/uLNormal1.45-7.50[facility] on above:Order Comment: Specimen Type: BLOOD SPECIMENOrdering Facility: [facility] Address:[address] [place], [place] [address]Performed By: #### 46857-1 ####[facility] LABCLIA [id number] [place], [place] [address]Onyzxhssumx/100 WBC (Bld)52.7 %NormalNorwalk Memorial Hospital on above:Order Comment: Specimen Type: BLOOD SPECIMENOrdering Facility: [facility] Address:[address] [place], [place] [address]Performed By: #### 07889-8 ####[facility] LABCLIA [id number] [place], [place] [address]Yxhiadfpz RBC (Bld) [#/Vol] 10*3/uLNormal<0.01[facility] on above:Order Comment: Specimen Type: BLOOD SPECIMENOrdering Facility: [facility] Address:[address] [place], [place] [address]Performed By: #### 79754-2 ####[facility] LABCLIA [id number] [place], [place] [address]Shalkurio RBC/100 WBC (Bld) [Ratio]0.0 /100 WBCNormal [facility] on above:Order Comment: Specimen Type: BLOOD SPECIMENOrdering Facility: [facility] Address:[address] [place], [place] [address]Performed By: #### 47116-9 ####[facility] LABCLIA [id number] [place], [place] [address]Nknmcgrm mean volume (Bld) [Entitic vol]9.6 fLNormal9.0-12.7CProMedica Flower Hospital on above:Order Comment: Specimen Type: BLOOD SPECIMENOrdering Facility: [facility] Address:[address] [place] [address] Performed By: #### 21603-4 ####[facility] LABIA [id number] [place], [place] [address]Ugnriadmm (Bld) [#/Vol]253 10*3/uEPledfu099-587XyswdxkqwNorwalk Memorial Hospital on above:Order Comment: Specimen Type: BLOOD SPECIMENOrdering Facility: [facility] Address:[address] [place], [place] [address]Performed By: #### 90537-9 ####[facility] LABCLIA [id number] [place], [place] [address]JEV (Bld) [#/Vol]4.48 10*6/uLNormal3.90-5.20[facility] on above:Order Comment: Specimen Type: BLOOD SPECIMENOrdering Facility: [facility] Address:[address] [place], [place] [address]Performed By: #### 36696-3 ####[facility] LABIA [id number] [place], [place] [address]ERO (Bld) [#/Vol]13.16 10*3/uLHigh3.70-11.00[facility] on above: Order Comment: Specimen Type: BLOOD SPECIMENOrdering Facility: [facility] Address:[address] [place], [place] [address]Performed By: #### 93166- 8 ####[facility] LABCLIA [id number] [place], [place] [address]Ucnafmavnezck metabolic 2000 panelon 79-22-7028Jshhjxf [Mass/Vol]4.5 g/dLNormal3.9-4.9CProMedica Flower Hospital on above:Order Comment: Specimen Type: BLOOD SPECIMENOrdering Facility: [facility] Address:[address] [place], [place] [address]Performed By: #### 54081- 8 ####[facility] LABCLIA [id number] [place] [id number] [place] AMERICAALP [Catalytic activity/Vol]120 U/VFjtsok64-229TewaaqmbbNorwalk Memorial Hospital on above:Order Comment: Specimen Type: BLOOD SPECIMENOrdering Facility: [facility] Address:[address] [place], [place] [address]Performed By: #### 07546-5 ####[facility] LABCLIA [id number] [place] [phone] [place] AMERICAALT [Catalytic activity/Vol]58 U/LHigh7-38[facility] on above:Order Comment: Specimen Type: BLOOD SPECIMENOrdering Facility: [facility] Address:[address] [place], [place] [address]Performed By: #### 51929-6 ####[facility] LABCLIA [id number] [place] [phone] [place] AMERICAAnion gap [Moles/Vol]14 mmol/LNormal8-15[facility] on above:Order Comment: Specimen Type: BLOOD SPECIMENOrdering Facility: [facility] Address:[address] [place], [place] [address]Performed By: #### 99232-0 ####[facility] LABCLIA [id number] [address] [address] [place] AST [Catalytic activity/Vol]44 U/VLmxf50-34Otwxpdwst Clinic ClevelandComment on above:Order Comment: Specimen Type: BLOOD SPECIMENOrdering Facility: [facility] Address:[address] [place], [place] [address]Performed By: #### 82370-3 ####[facility] LABCLIA [id number] [address] [address] [place] AMERICABilirubin [Mass/Vol] 0.2 mg/dLNormal0.2-1.3CProMedica Flower Hospital on above:Order Comment: Specimen Type: BLOOD SPECIMENOrdering Facility: [facility] Address:[address] [place], [place] [address]Performed By: #### 08559-7 ####[facility] LABCLIA [id number] [place] [phone] [place] AMERICACalcium [Mass/Vol]9.4 mg/dLNormal 8.5-10.2CProMedica Flower Hospital on above:Order Comment: Specimen Type: BLOOD SPECIMENOrdering Facility: [facility] Address:[address] [place], [place] [address]Performed By: #### 28177-8 ####[facility] LABCLIA [id number] [address] [address] [place] AMERICAChloride [Moles/Vol]101 mmol/IOkjfmn40-421SzefuwlosNorwalk Memorial Hospital on above:Order Comment: Specimen Type: BLOOD SPECIMENOrdering Facility: [facility] Address:[address] [place], [place] [address]Performed By: #### 96613-4 ####[facility] LABCLIA [id number] [address] [address] [place] AMERICACO2 [Moles/Vol]23 mmol/XYiudcs04-63KeijeljobNorwalk Memorial Hospital on above:Order Comment: Specimen Type: BLOOD SPECIMENOrdering Facility: [facility] Address:[address] [place], [place] [address]Performed By: #### 02720-5 ####[facility] LABIA [id number] [address] [address] [place] AMERICACreatinine [Mass/Vol] 0.93 mg/dLNormal0.58-0.96[facility] on above:Order Comment: Specimen Type: BLOOD SPECIMENOrdering Facility: [facility] Address:[address] [place], [place] [address]Performed By: #### 09621- 8 ####[facility] H[facility]PITAL[facility] [id number] [address] [address] [place] AMERICAeGFRcr SerPlBld CKD-EPI 251496 mL/min/1.73m???Normal>=60[facility] on above:Order Comment: Specimen Type: BLOOD SPECIMENOrdering Facility: [facility] Address:[address] [place], [place] [address]Result Comment: Estimated Glomerular Filtration Rate (eGFR) is calculated using the 2020 CKD-EPI cre atinine equation. This equation utilizes serum creatinine, sex, and age as parameters. The creatinine assay has traceable calibration to isotope dilution- mass spectrometry. Refer to KDIGO guidelines for clinical interpretation. In patients with unstable renal function, e.g. those with acute kidney injury, the eGFR may not accurately reflect actual GFR.Performed By: #### 65387-6 ####[facility] LABIA [id number] [address] [address] [place] AMERICAGlucose [Mass/Vol]78 mg/dLNormal 74-99[facility] on above:Order Comment: Specimen Type: BLOOD SPECIMENOrdering Facility: [facility] Address:[address] [place], [place] [address]Result Comment: The [place] Diabetes Association (ADA) provides guidance for cutoff [...] Standards of Medical Care in Diabetes 2016, [place] [employer]. Diabetes Care. 2016.39(Suppl 1).Performed By: #### 48622-1 ####[facility] LABIA [id number] [place] [address] [place] [facility] MEDICAL CENTERPotassium [Moles/Vol]4.5 mmol/L Normal3.7-5.1CProMedica Flower Hospital on above:Order Comment: Specimen Type: BLOOD SPECIMENOrdering Facility: [facility] Address:[address] [place], [place] [address]Performed By: #### 80449-2 ####[facility] LABPOR[facility] [id number] [address] STATES OF AMERICAProtein [Mass/Vol]7.0 g/dLNormal6.3-8.0[facility] on above:Order Comment: Specimen Type: BLOOD SPECIMENOrdering Facility: [facility] Address:[address] [place], [place] [address]Performed By: #### 31482-3 ####[facility] LABIA [id number] [address] STATES [place] Sodium [Moles/Vol]138 mmol/OOpraud553-443YotpginfaNorwalk Memorial Hospital on above:Order Comment: Specimen Type: BLOOD SPECIMENOrdering Facility: [facility] Address:[address] [place], [place] [address]Performed By: #### 74003-0 ####[facility] LABIA [id number] [address] STATES OF [facility] MEDICAL CENTERUrea nitrogen [Mass/Vol]18 mg/dLNormal7-21[facility] on above:Order Comment: Specimen Type: BLOOD SPECIMENOrdering Facility: [facility] Address:[address] [place] [address]Performed By: #### 00780- 8 ####[facility] LABIA [id number] [place] [address] [place] AMERICAFerritin SerPl-St. [facility] Rehabilitation Hospitalon 02-14-2025 Ferritin [Mass/Vol]310.0 ng/wUXvjq09.7-205.1ClevelUNC Health Johnston ClaytonComment on above:Order Comment: Specimen Type: BLOOD SPECIMENOrdering Facility: [facility] Address:[address] [place], [place] [address]Performed By: #### 2132-9, 2284-8, 01086-5, 2275-4 ####[facility] MEM[facility]IAL HOSPITALIA [id number] [place] [address] [place] Folate SerPl-[facility] 92-45-6025Viqwdq [Mass/Vol]ng/mLNormal>4.7ClevelUNC Health Johnston ClaytonComment on above:Order Comment: Specimen Type: BLOOD SPECIMENOrdering Facility: [facility] Address:[address] [place], [place] [address]Result Comment: A result of > 20 ng/mL is not necessarily indicative of a pathologic or treatable condition: it reflects a limitation of the test methodology. Assay reference range: 4.8 to 24.2 ng/mL. Suitable for detection of folate deficiency. Reference: Folate III (Folate III) [package insert V 1.0 Austrian]. [facility], [place], [place]: March 2015.Performed By: #### 2132-9, 2284-8, 70261-3, 2275-4 ####[facility] LABIA [id number] [place] [phone] [place] AMERICAIron and Iron binding capacity panelon 18-42-2857Myls [Mass/Vol]50 ug/pJTqtjzf28-834CpkikkjnzGuernsey Memorial Hospital Comment on above:Order Comment: Specimen Type: BLOOD SPECIMENOrdering Facility: [facility] Address:[address] [place] [address] Performed By: #### 2132-9, 4-8, 12034-7, 6-4 ####[facility] LABIA [id number] [place] [phone] [place] AMERICAIron binding capacity [Mass/Vol]342 ug/kYWtyfzv532-890CrpvsavmqNorwalk Memorial Hospital on above:Order Comment: Specimen Type: BLOOD SPECIMENOrdering Facility: [facility] Address:[address] [place], [place] [address]Performed By: #### 2132-9, 4-8, 56075-8, 2275-4 ####[facility] LABIA [id number] [place] [phone] [place] AMERICAIron/TIBC [Molar ratio]14.6 %Low 15.0-57.0[facility] on above:Order Comment: Specimen Type: BLOOD SPECIMENOrdering Facility: [facility] Address:[address] [place], [place] [address]Performed By: #### 2132-9, 4-8, 41970-6, 2275- 4 ####[facility] MEM[facility] HOSPITALIA [id number] [place] [phone] [place] AMERICAVit B12 [facility] Hospitalon 02-14-2025 Cobalamin (Vitamin B12) [Mass/Vol]820 pg/eKIpacvl340-6475QcyholjeyProMedica Flower Hospital on above:Order Comment: Specimen Type: BLOOD SPECIMENOrdering Facility: [facility] Address:[address] [place], [place] [address]Performed By: #### 2132-9, 2284-8, 38245-9, 2275-4 ####[facility] LABIA [id number] [place] [phone] [place] AMERICAGlucose (Bld) [Mass/Vol]on 05-49-1748Iruiwmb Blood, POC 121 mg/dLNOMS HealthcareInterpretation and review of laboratory resultsAbnormal NOMS YvetgoqgelTyB1s (Bld) [Mass fraction]on 78-03-3947Sehlftixncvrze and review of laboratory resultsNormalNOTX HealthcareLaboratory - Hematology and Cell countson 30-27-6516DaO5h (Bld) [Mass fraction]5.8 %[facility] HealthcareNo Panel Informationon 35-08-0233OWAS HealthcareCNNURSEon 33-50-5806DIQJDFQZwnlo Visit (HEMASA) JEANNETTE HURTADO ([id number]) 1965 F Date Time Provider Department 01/17/25 2:00 PM MERVIN NURSE EDMUND CARRERO During your visit today, we recorded the following information about you: Temperature Pulse Respiration Blood pressure 97.6 degrees 72/minute 16/minute 155/81 Katina Howe MA 01/17/2025 2:08 PM Signed Patient Identification confirmed: yes. Injection given and documented on JUL per provider order. Katina Howe MA Referring Provider: MAITE MERRITT [[id number]] Allergies As of Date: 01/17/2025 Noted Allergy Reaction COMPAZINE (PROCHLORPERAZINE EDISY*01/13/2005 LATEX 01/21/2023 16 - Unknown Date Reviewed: 01/17/2025 Reviewed by: Katina Howe MA - Fully Assessed Primary Visit Diagnosis:Iron deficiency anemia secondary to inadequate dietary iron intake [D50.8] Order(s):[] cyanocobalamin 1,000 mcg injectionDisp: Rfl: Prescriptions as of 01/17/2025 - folic acid 1 mg tablet TAKE 1 TABLET DAILY - solifenacin 10 mg tablet Take 1 tablet by mouth once daily. - aspirin, enteric coated (ASPIRIN, ENTERIC COATED) [...] Sarmiento MA Problem List As Of Date 01/17/2025 Noted Resolved HIDRADENITIS [L73.2] 01/13/2005 Iron deficiency anemia secondary to inadequate *02/07/2023 Prescriptions ordered this encounter Disp Refills Start End CYANOCOBALAMIN (VIT B-12) 1,000 MCG/* 01/17/2025 01/17/2025 Route: IM Encounter Status:Closed by August on 01/17/25[facility] 83-46-3812DKAPTJATpufm Visit (ALISE) JEANNETTE HURTADO ([id number]) 1965 F Date Time Provider Department 12/20/24 2:00 PM MERVIN NURSE EDMUND CARRERO During your visit today, we recorded the following information about you: Temperature Pulse Respiration Blood pressure 97.3 degrees 78/minute 16/minute 136/78 Referring Provider: MAITE MERRITT [[id number]] Allergies As of Date: 12/20/2024 Noted Allergy Reaction COMPAZINE (PROCHLORPERAZINE EDISY*01/13/2005 LATEX 01/21/2023 16 - Unknown Date Reviewed: 12/14/2024 Reviewed by: Ruben Wiggins APRN.[employer] - Fully Assessed Reason for Visit: Anemia [6] Primary Visit Diagnosis:Iron deficiency anemia secondary to inadequate dietary iron intake [D50.8] Order(s):[] cyanocobalamin 1,000 mcg injectionDisp: Rfl: Prescriptions as of 12/20/2024 - folic acid 1 mg tablet TAKE 1 TABLET DAILY - solifenacin 10 mg tablet Take 1 tablet by mouth once daily. - aspirin, enteric coated (ASPIRIN, ENTERIC COATED) [...] Sarmiento MA Problem List As Of Date 12/20/2024 Noted Resolved HIDRADENITIS [L73.2] 01/13/2005 Iron deficiency anemia secondary to inadequate *02/07/2023 Prescriptions ordered this encounter Disp Refills Start End CYANOCOBALAMIN (VIT B-12) 1,000 MCG/* 12/20/2024 12/20/2024 Route: IM Encounter Status:Closed by ALPA DOZIER on 12/20/24[facility] CenterCNOVSPon 35-02-6821GMICDBFtjyi (SP) Office (HEMASA) JEANNETTE HURTADO ([id number]) 1965 F Date Time Provider Department 11/28/24 2:00 PM MAITE MERRITT During your visit today, we recorded the following information about you: Temperature Pulse Respiration Blood pressure 97.8 degrees 75/minute 16/minute 137/83 Weight 91.6 kg Maite Merritt PA-C 11/28/2024 2:24 PM Signed NAME: Jeannette Hurtado CLINIC NO.: [id number] DATE OF SERVICE: November 28, 2024 (Shaina) Some elements in this clinic note that are critical to medical decision making have been carefully reviewed and included from a prior clinic note dated: August 29, 2024 (Shaina) Referring Provider: Dr. Klaudia Gomez Additional Clinicians involved in Jeannette Hurtado's care: DIAGNOSIS: Anemia, fatigue ASSESSMENT: 59 year old woman with anemia and associated fatigue. She has obstructive sleep apnea but is compliant with CPAP. We advised her to have a cardiac workup done because the degree of anemia did not match the degree of fatigue. She ended up failing a stress test and now has two coronary stents. Cardiology just stopped her Plavix 08/2024. Her labs from 08/22/2024 showed improvement in her ferritin after receiving 1000 mg total of venofer in March 2024. She continues her folic acid daily and monthly B12 IM injections. Her neutrophils and WBC have normalized. She will return in 3 months with repeat labs. As for her chronic fatigue, I recommended seeing rheumatology as all other avenues seem to have been exhausted. - HPI: CASE HISTORY: Reverse Chronological Order 08/29/2024 - BCR/ABL1 negative and MPN panel negative 03/27/24-04/10/24 - venofer 1000 mg total given 10/02/24 - B12 IM monthly started 02/21/23-03/07/23 - venofer 900mg total given 01/05/2023 - CBC 9.2 > 11.2 / 35.6 < 277 11/12/2022 - Colonoscopy is negative. Recommended colonoscopy 10 years. Updated Visit, November 28, 2024: Adalgisa returns for 3 month follow up and remains on folic acid daily and B12 IM monthly. Most recent labs on 11/21/24 revealed normal WBC of 10.99, normal hgb 13.5 and MCV 96.0 and platelets of 252,000. In August her WBC were elevated and work up was completed. Her MPN and BCR/ABL1 were both negative. She still remains tired. She sleeps well. She is using her CPAP regularly. Updated Visit, August 29, 2024: Adalgisa returns for follow up. Remains on folic acid daily and B12 IM monthly. Still has fatigue. No fever, chills, nausea, vomiting, weight loss, lymph node enlargement or other symptoms. Plavix stopped last week by cardiology. WBC and neutrophils remain elevated. Iron studies remain stable. Updated Visit, June 06, 2024: Patient here for follow up. Received venofer 200 x 5 doses in March 2024. Her energy level has been better. Here for follow up. Remains on folic acid and gets her B12 injections monthly. She has fallen a few times since her last visit. She lost her balance. No dizziness. No loss of consciousness. No headaches. Some blurred vision at times. She is on a new medicine, solifenacin for urinary incontinence for 2 months and it is helping. Updated Visit, March 14, 2024: Patient is [...] replacement / balancing that is offered by [facility] [facility]. Updated Visit, July 11, 2023: Jeannette Hurtado [...] how the oral was working, followed by kennedy corrigan (more content not included)...[facility] W Auto Differential panel (Bld)on 99-91-1889Tmjkbeolv (Bld) [#/Vol]0.09 10*3/uLNormal <0.11CProMedica Flower Hospital on above:Order Comment: Specimen Type: BLOOD SPECIMENOrdering Facility: [facility] Address:[address] [place], [place] [address]Jkqgumyfs By: #### 57796-0 ####[facility] LABCLIA [id number] [place] [address] Basophils/100 WBC (Bld)0.8 %[facility] on above: Order Comment: Specimen Type: BLOOD SPECIMENOrdering Facility: [facility] Address:[address] [place], [place] [address]Vztzjclxo By: #### 33105- 8 ####[facility] LABCLIA [id number] [place], [place] [address]Ztwjankwvkzr cell count method Nom (Bld)AutoNormal [facility] on above:Order Comment: Specimen Type: BLOOD SPECIMENOrdering Facility: [facility] Address:[address] [place], [place] [address]Performed By: #### 68174-4 ####[facility] LABCLIA [id number] [place], [place] [address]Tagyxytwheh (Bld) [#/Vol]0.40 10*3/uLNormal<0.46[facility] on above: Order Comment: Specimen Type: BLOOD SPECIMENOrdering Facility: [facility] Address:[address] [place], [place] [address]Performed By: #### 02980- 8 ####[facility] LABIA [id number] [place], [place] [address]Zukvrlwkwst/100 WBC (Bld)3.6 %NormalNorwalk Memorial Hospital on above:Order Comment: Specimen Type: BLOOD SPECIMENOrdering Facility: [facility] Address:[address] [place], [place] [address]Performed By: #### 59516-3 ####[facility] LABIA [id number] [place], [place] [address]Mdpwacgxmnl distribution width (RBC) [Ratio]13.0 %Hsoism14.5-15.0[facility] on above: Order Comment: Specimen Type: BLOOD SPECIMENOrdering Facility: [facility] Address:[address] [place], [place] [address]Performed By: #### 07335- 8 ####[facility] LABIA [id number] [place], [place] [address]Dbrsbybndz (Bld) [Volume fraction]40.5 %Unpnyc14.0-46.0 [facility] on above:Order Comment: Specimen Type: BLOOD SPECIMENOrdering Facility: [facility] Address:[address] [place], [place] [address]Performed By: #### 11463-6 ####[facility] LABIA [id number] [place], [place] [address]Tazigpqiso (Bld) [Mass/Vol]13.5 g/vMHrzydj90.5-15.5CProMedica [facility]lower [facility] on above: Order Comment: Specimen Type: BLOOD SPECIMENOrdering Facility: [facility] Address:[address] [place], [place] [address]Performed By: #### 42976- 8 ####[facility] LABIA [id number] [place], [place] [address]Buuzrzml granulocytes (Bld) [#/Vol]0.03 10*3/uLNormal <0.10[facility] on above:Order Comment: Specimen Type: BLOOD SPECIMENOrdering Facility: [facility] Address:[address] [place], [place] [address]Performed By: #### 02995-8 ####[facility] LABIA [id number] [place], [place] [address]Owwbbxtr granulocytes/100 WBC (Bld)0.3 %NormalNorwalk Memorial Hospital on above: Order Comment: Specimen Type: BLOOD SPECIMENOrdering Facility: [facility] Address:[address] [place], [place] [address]Performed By: #### 76874- 8 ####[facility] LABIA [id number] [place], [place] [address]Twrgjwwvsvp (Bld) [#/Vol]2.94 10*3/uLNormal1.00-4.00 [facility] on above:Order Comment: Specimen Type: BLOOD SPECIMENOrdering Facility: [facility] Address:[address] [place], [place] [address]Performed By: #### 12975-2 ####[facility] LABCLIA [id number] [place], [place] [address]Jxlwbdltgqi/100 WBC (Bld)26.8 %NormalNorwalk Memorial Hospital on above:Order Comment: Specimen Type: BLOOD SPECIMENOrdering Facility: [facility] Address:[address] [place], [place] [address]Performed By: #### 45778-8 ####[facility] LABCLIA [id number] [place], [place] [address]EJH (RBC) [Entitic mass]32.0 woNcfzgv82.0-34.0[facility] on above:Order Comment: Specimen Type: BLOOD SPECIMENOrdering Facility: [facility] Address:[address] [place], [place] [address]Performed By: #### 58126-7 ####[facility] LABIA [id number] [place], [place] [address]PCFY (RBC) [Mass/Vol]33.3 g/iNZqucey28.5-36.0[facility] on above: Order Comment: Specimen Type: BLOOD SPECIMENOrdering Facility: [facility] Address:[address] [place], [place] [address]Performed By: #### 27315- 8 ####[facility] LABCLIA [id number] [place], [place] [address]DTJ (RBC) [Entitic vol]96.0 ePCqkgdn45.0-100.0[facility] on above:Order Comment: Specimen Type: BLOOD SPECIMENOrdering Facility: [facility] Address:[address] [place], [place] [address]Performed By: #### 85598-2 ####[facility] LABIA [id number] [place], [place] [address]Aewqbenpk (Bld) [#/Vol]0.79 10*3/uLNormal<0.87[facility] on above:Order Comment: Specimen Type: BLOOD SPECIMENOrdering Facility: [facility] Address:[address] [place], [place] [address]Performed By: #### 61168- 8 ####[facility] LABCLIA [id number] [place], [place] [address]Oyszwztpu/100 WBC (Bld)7.2 %NormalNorwalk Memorial Hospital on above:Order Comment: Specimen Type: BLOOD SPECIMENOrdering Facility: [facility] Address:[address] [place], [place] [address]Performed By: #### 74768-8 ####[facility] LABCLIA [id number] [place], [place] [address]Hovcvvxtvce (Bld) [#/Vol]6.74 10*3/uLNormal1.45-7.50[facility] on above:Order Comment: Specimen Type: BLOOD SPECIMENOrdering Facility: [facility] Address:[address] [place], [place] [address]Performed By: #### 63299-9 ####[facility] LABCLIA [id number] [place], [place] [address]Ecmedhcqwzc/100 WBC (Bld)61.3 %NormalNorwalk Memorial Hospital on above:Order Comment: Specimen Type: BLOOD SPECIMENOrdering Facility: [facility] Address:[address] [place], [place] [address]Performed By: #### 30927-8 ####[facility] LABCLIA [id number] [place], [place] [address]Cpldxjbtf RBC (Bld) [#/Vol] 10*3/uLNormal<0.01[facility] on above:Order Comment: Specimen Type: BLOOD SPECIMENOrdering Facility: [facility] Address:[address] [place], [place] [address]Performed By: #### 21158-9 ####[facility] LABCLIA [id number] [place], [place] [address]Dlgmgqytc RBC/100 WBC (Bld) [Ratio]0.0 /100 WBCNormal [facility] on above:Order Comment: Specimen Type: BLOOD SPECIMENOrdering Facility: [facility] Address:[address] [place], [place] [address]Performed By: #### 17082-2 ####[facility] LABCLIA [id number] [place], [place] [address]Kcstkzxl mean volume (Bld) [Entitic vol]9.5 fLNormal9.0-12.7CProMedica Flower Hospital on above:Order Comment: Specimen Type: BLOOD SPECIMENOrdering Facility: [facility] Address:[address] [place] [address] Performed By: #### 17041-0 ####[facility] LABCLIA [id number] [place], [place] [address]Elyixgzjp (Bld) [#/Vol]252 10*3/rADvpnxg368-297RfrgnblhvNorwalk Memorial Hospital on above:Order Comment: Specimen Type: BLOOD SPECIMENOrdering Facility: [facility] Address:[address] [place], [place] [address]Performed By: #### 65653-3 ####[facility] LABCLIA [id number] [place], [place] [address]XRD (Bld) [#/Vol]4.22 10*6/uLNormal3.90-5.20[facility] on above:Order Comment: Specimen Type: BLOOD SPECIMENOrdering Facility: [facility] Address:[address] [place], [place] [address]Performed By: #### 16087-4 ####[facility] LABCLIA [id number] [place], [place] [address]YLW (Bld) [#/Vol]10.99 10*3/uLNormal3.70-11.00[facility] on above: Order Comment: Specimen Type: BLOOD SPECIMENOrdering Facility: [facility] Address:[place], [place] [address]Vcqldknsg By: #### 15566- 8 ####[facility] LABCLIA [id number] [place], [place] [address]UVTXBLFot 16-05-2579XWWBCRMLtbjr Visit (HEMASA) JEANNETTE HURTADO ([id number]) 1965 F Date Time Provider Department 11/21/24 2:15 PM MERVIN NURSE EDMUND CARRERO During your visit today, we recorded the following information about you: Temperature Pulse Respiration Blood pressure 97.6 degrees 72/minute 16/minute 124/74 Dangelo Umanzor MA 11/21/2024 2:36 PM Signed Patient Identification confirmed: yes. Injection given and documented on JUL per provider order. Dangelo Umanzor MA Referring Provider: MAITE MERRITT [[id number]] Allergies As of Date: 11/21/2024 Noted Allergy Reaction COMPAZINE (PROCHLORPERAZINE EDISY*01/13/2005 LATEX 01/21/2023 16 - Unknown Date Reviewed: 11/14/2024 Reviewed by: Ruben Wiggins APRN.WHITE HAT HACKER - Fully Assessed Primary Visit Diagnosis:Iron deficiency anemia secondary to inadequate dietary iron intake [D50.8] Order(s):[] cyanocobalamin 1,000 mcg injectionDisp: Rfl: Prescriptions as of 11/21/2024 - solifenacin 10 mg tablet Take 1 tablet by mouth once daily. - folic acid 1 mg tablet Take 1 tablet by mouth once daily. - aspirin, enteric coated (ASPIRIN, ENTERIC COATED) 81 mg EC tablet Take 81 mg by mouth. - atorvastatin (LIPITOR) 40 mg tablet Atorvastatin Active 40 MG PO Daily 90 February 23rd, 2024 12:00am - lisinopril (ZESTRIL) 5 mg tablet [...] Sarmiento MA Problem List As Of Date 11/21/2024 Noted Resolved HIDRADENITIS [L73.2] 01/13/2005 Iron deficiency anemia secondary to inadequate *02/07/2023 Prescriptions ordered this encounter Disp Refills Start End CYANOCOBALAMIN (VIT B-12) 1,000 MCG/* 11/21/2024 11/21/2024 Route: IM Encounter Status:Closed by DANGELO UMANZOR on 11/21/24NormalCOhio Valley Surgical HospitalComprehensive metabolic 2000 panelon 50-06-1858Idcdrmv [Mass/Vol]4.5 g/dLNormal3.9-4.9CProMedica Flower Hospital on above:Order Comment: Specimen Type: BLOOD SPECIMENOrdering Facility: [facility] Address:[address] [place], [place] [address]RAJI BAÑ[place], [place] [address]Rcbtklttj By: #### 18053-8 ####[facility] LABCLIA [id number] [place], [place] [address]JFH [Catalytic activity/Vol]109 U/ERumzry38-226DpgsgolrwNorwalk Memorial Hospital on above:Order Comment: Specimen Type: BLOOD SPECIMENOrdering Facility: [facility] Address:[address] [place], [place] [address]Performed By: #### 27696-2 ####[facility] LABCLIA [id number] [place] [address]RTU [Catalytic activity/Vol]32 U/LNormal7-38[facility] on above:Order Comment: Specimen Type: BLOOD SPECIMENOrdering Facility: [facility] Address:[address] [place], [place] [address]Performed By: #### 09363- 8 ####[facility] LABCLIA [id number] [place], [place] [address]Sedbf gap [Moles/Vol]11 mmol/LNormal8-15[facility] on above:Order Comment: Specimen Type: BLOOD SPECIMENOrdering Facility: [facility] Address:[address] [place], [place] [address]Performed By: #### 43285-6 ####[facility] LABCLIA [id number] [place], [place] [address]BHS [Catalytic activity/Vol]40 U/WThdx79-46CvbtavodnNorwalk Memorial Hospital on above:Order Comment: Specimen Type: BLOOD SPECIMENOrdering Facility: [facility] Address:[address] [place], [place] [address]Performed By: #### 14098-0 ####[facility] LABCLIA [id number] [place] [address] Bilirubin [Mass/Vol]0.3 mg/dLNormal0.2-1.3CProMedica Flower Hospital on above:Order Comment: Specimen Type: BLOOD SPECIMENOrdering Facility: [facility] Address:[address] [place], [place] [address]Performed By: #### 59323-2 ####[facility] LABCLIA [id number] [place], [place] [address]Agrkmyu [Mass/Vol]10.0 mg/dLNormal8.5-10.2CProMedica Flower Hospital on above:Order Comment: Specimen Type: BLOOD SPECIMENOrdering Facility: [facility] Address:[address] [place], [place] [address]Performed By: #### 14349-6 ####[facility] LABCLIA [id number] [place], [place] [address]Fagkrmhv [Moles/Vol]96 mmol/NPyz43-369JckanubzwNorwalk Memorial Hospital on above:Order Comment: Specimen Type: BLOOD SPECIMENOrdering Facility: [facility] Address:[address] [place], [place] [address]Performed By: #### 97104- 8 ####[facility] LABCLIA [id number] [place], [place] [address]ZQ6 [Moles/Vol]28 mmol/OTeppjs50-99XdzdkkicvNorwalk Memorial Hospital on above:Order Comment: Specimen Type: BLOOD SPECIMENOrdering Facility: [facility] Address:[address] [place], [place] [address]Performed By: #### 00693-4 ####[facility] LABCLIA [id number] [place], [place] [address]Daghnzcdqb [Mass/Vol]0.93 mg/dL Normal0.58-0.96[facility] on above:Order Comment: Specimen Type: BLOOD SPECIMENOrdering Facility: [facility] Address:[address] [place], [place] [address]Performed By: #### 40500-4 ####[facility] LABCLIA [id number] [place], [place] [address]Fmckddfnfy and Glomerular filtration rate.predicted panel (S/P/Bld)70 mL/min/1.73m???Normal>=60[facility] on above:Order Comment: Specimen Type: BLOOD SPECIMENOrdering Facility: [facility] Address:[address] [place], [place] [address]Result Comment: Estimated Glomerular Filtration Rate (eGFR) is calculated using the 2020 CKD-EPI creatinine equation. This equation utilizes serum creatinine, sex, and age as parameters. The creatinine assay has traceable calibration to isotope dilution- mass spectrometry. Refer to KDIGO guidelines for clinical interpretation. In patients with unstable renal function, e.g. those with acute kidney injury, the eGFR may not accurately reflect actual GFR.Performed By: #### 58507-6 ####[facility] LABCLIA [id number] [place], [place] [address]Iuaizph [Mass/Vol]178 mg/hIBlck11-24UzcpbxwusNorwalk Memorial Hospital on above:Order Comment: Specimen Type: BLOOD SPECIMENOrdering Facility: [facility] Address:[address] [place] [address]Qdnvzz Comment: The [place] [employer] Association (ADA) provides guidance for cutoff values for fasting glucose and random glucose. The ADA defines fasting as no caloric intake for at least 8 hours. Fasting plasma glucose results between 100 to 125 mg/dL indicate increased risk for diabetes (prediab etes). Fasting plasma glucose results greater than or [...] Standards of Medical Care in Diabetes 2016, [place] [employer]. Diabetes Care. 2016.39(Suppl 1).Performed By: #### 71377-6 ####[facility] LABCLIA [id number] [place], [place] [address]Nbjotxtdi [Moles/Vol]4.4 mmol/LNormal3.7-5.1CProMedica Flower Hospital on above:Order Comment: Specimen Type: BLOOD SPECIMENOrdering Facility: [facility] Address:[address] [place], [place] [address]Dzkgkljso By: #### 44606-0 ####[facility] LABCLIA [id number] [place], [place] [address]Gcqygwt [Mass/Vol]7.5 g/dLNormal6.3-8.0[facility] on above:Order Comment: Specimen Type: BLOOD SPECIMENOrdering Facility: [facility] Address:[address] [place], [place] [address]Performed By: #### 80370- 8 ####[facility] LABCLIA [id number] [place], [place] [address]Idbvmv [Moles/Vol]135 mmol/OAzf538-032WxvundjbzNorwalk Memorial Hospital on above:Order Comment: Specimen Type: BLOOD SPECIMENOrdering Facility: [facility] Address:[address] [place], [place] [address]Performed By: #### 55479-9 ####[facility] LABCLIA [id number] [place], [place] [address]Yvkw nitrogen [Mass/Vol]21 mg/dLNormal7-21[facility] on above:Order Comment: Specimen Type: BLOOD SPECIMENOrdering Facility: [facility] Address:[address] [place], [place] [address]Performed By: #### 31706-4 ####[facility] LABCLIA [id number] [place], [place] [address]Inawplof SerPl-mCncon 55-60-5757Hlzzzjdx [Mass/Vol]362.0 ng/nTXkbi44.7-205.1CProMedica Flower Hospital on above:Order Comment: Specimen Type: BLOOD SPECIMENOrdering Facility: [facility] Address:[address] [place], [place] [address]Performed By: #### 2276-4, 2284-8, 53502-2, 2132-9 ####[facility] LABCLIA [id number] [place] [address] [place] OF AMERICAFolate SerPl-mCncon 15-11-5131Uzxrod [Mass/Vol]ng/mLNormal>4.7CProMedica Flower Hospital on above:Order Comment: Specimen Type: BLOOD SPECIMENOrdering Facility: [facility] Address:[address] [place], [place] [address]Result Comment: A result of > 20 ng/mL is not necessarily indicative of a pathologic or treatable condition: it reflects a limitation of the test methodology. Assay reference range: 4.8 to 24.2 ng/mL. Suitable for detection of folate deficiency. Reference: Folate III (Folate III) [package insert V 1.0 Austrian]. [facility], [place], [place]: March 2015.Performed By: #### 2276-4, 2284-8, 72132-2, 2132-01 ####[facility] LABIA [id number] [place] [id number] [place] OF AMERICAIron and Iron binding capacity panelon 56-45-0921Udbz [Mass/Vol]49 ug/gUMxprrw68-556IlpsuchwkGuernsey Memorial Hospital Comment on above:Order Comment: Specimen Type: BLOOD SPECIMENOrdering Facility: [facility] Address:[address] [place] [address] Performed By: #### 2276-4, 2284-8, 73057-1, 2132-01 ####[facility] LABIA [id number] [place] [id number] [place] OF AMERICAIron binding capacity [Mass/Vol]302 ug/yUPkvtis680-005CsswutxkhGuernsey Memorial HospitalComment on above:Order Comment: Specimen Type: BLOOD SPECIMENOrdering Facility: [facility] Address:[address] [place], [place] [address]Performed By: #### 2276-4, 2284-8, 97374-4, 2132-01 ####[facility] LABIA [id number] [place] [id number] [facility] OF AMERICAIron/TIBC [Molar ratio]16.2 % Wywpov35.0-57.0[facility] on above:Order Comment: Specimen Type: BLOOD SPECIMENOrdering Facility: [facility] Address:[address] [place], [place] [address]Performed By: #### 2276-4, 2284-8, 33034-7, 9 ####[facility] LABCLIA [id number] [place] [address] [place] AMERICAVit B12 SerPl-mCncon 27-38-9177Ikpypfsbh (Vitamin B12) [Mass/Vol]587 pg/zMRgocdd380-8769Diydhvwye Clinic ClevelandComment on above:Order Comment: Specimen Type: BLOOD SPECIMENOrdering Facility: [facility] Address:[address] [place], [place] [address]Performed By: #### 2276-4, 2284-8, 09274-6, 9 ####[facility] LABCLIA [id number] [place] [address] [place] AMERICACNNURSEon 08-72-9844NKOQDPVWzpeb Visit (HEMASA) JEANNETTE HURTADO ([id number]) 1965 F Date Time Provider Department 10/24/24 2:00 PM MERVIN NURSE EDMUND CARRERO During your visit today, we recorded the following information about you: Temperature Pulse Respiration Blood pressure 97.1 degrees 73/minute 16/minute 149/89 Katina Howe MA 10/24/2024 2:19 PM Signed Patient Identification confirmed: yes. Injection given and documented on JUL per provider order. Katina Howe MA Referring Provider: MAITE MERRITT [[id number]] Allergies As of Date: 10/24/2024 Noted Allergy Reaction COMPAZINE (PROCHLORPERAZINE EDISY*01/13/2005 LATEX 01/21/2023 16 - Unknown Date Reviewed: 10/24/2024 Reviewed by: Katina Howe MA - Fully Assessed Primary Visit Diagnosis:Iron deficiency anemia secondary to inadequate dietary iron intake [D50.8] Order(s):TREATMENT PARAMETER-NOT NEEDED [8960652] Order #: [id number]: 1 BCN NURSING COMMUNICATION [1204870] Order #: [id number]: 1 STANDING cyanocobalamin 1,000 mcg injectionDisp: Rfl: Prescriptions as of 10/24/2024 - solifenacin 10 mg tablet Take 1 tablet by mouth once daily. - folic acid 1 mg tablet Take 1 tablet by mouth once daily. - aspirin, enteric coated (ASPIRIN, ENTERIC COATED) [...] hours as needed for wheezing/shortness of breath. Facility-Administered Medications as of 10/24/2024 - cyanocobalamin 1,000 mcg injection (Completed) Meds Comments as of 07/11/2023: Patient unsure of medications, asked her to bring a list with her next visit. Mariela Sarmiento MA Problem List As Of Date 10/24/2024 Noted Resolved HIDRADENITIS [L73.2] 01/13/2005 Iron deficiency anemia secondary to inadequate *02/07/2023 Prescriptions ordered this encounter Disp Refills Start End CYANOCOBALAMIN (VIT B-12) 1,000 MCG/* 10/24/2024 10/24/2024 Route: IM Encounter Status:Closed by MARIN AUGUST on 10/24/24NormalCleveland Clinic ClevelandUrinalysis macro (dipstick) panel (U)on 28-87-5791Ssyfndsty, UANegative Negative - 4(70) +++ mg/dLNOMS HealthcareBlood, UANegativeNegative - 50 Tima/mcL NOMS HealthcareClarity, UAClearNOTX HealthcareColor, UAYellowNOMS Healthcare Glucose, UANegativeNegative - 2000(110) ++++ mg/dLNOTX HealthcareInterpretation and review of laboratory resultsNormalNOTX HealthcareKetones, UANegativeNegative - 160(16) ++++ mg/dLNOTX HealthcareLeukocytes, UANegativeNegative - 500+++ Delvin/mcLNOTX HealthcareNitrite, UANegativeNegative - PositiveNOMS HealthcarepH, UA55 - 9NOMS HealthcareProtein, UANegativeNegative - 2000(20) ++++ mg/dLNOTX HealthcareSpec Grav, UA51 - 1.03NOTX HealthcareUrobilinogen, UA1.00.2 - 12 mg/dL [facility] HealthcareGlucose (Bld) [Mass/Vol]on 60-89-4524Wgzgnki Blood, DZQ994 mg/dLUNC Health Blue Ridge - ValdeseHbA1c (Bld) [Mass fraction]on 87-53-1084ECEORanken Jordan Pediatric Specialty HospitalLaboratory - Hematology and Cell countson 10-15-2024 HbA1c (Bld) [Mass fraction]7.2 %[facility] Pediatric Specialty HospitalGlucose Glucometer (BldC) [Mass/Vol]Ordered By: Fabby Teran on 30-92-9889Hxtomzf [Mass/Vol]Capillary blood glucose measurement by glucometer (mass/volume)[facility] Comment on above:Random Glucose Reference Range is dependent on time and content of last meal. Glucose of more than 200 mg/dL in a nonstressed, ambulatory subject supports the diagnosis of Diabetes Mellitus.Glucose Poct Glucometerson 88-52-3839Nvhgpha [Mass/Vol]178 mg/dLHCA Florida Englewood Hospital Physician GroupComment on above:Result Comment: Random Glucose Reference Range is dependent on time and content of last meal. Glucose of more than 200 mg/dL in a nonstressed, ambulatory subject supports the diagnosis of Diabetes Mellitus. PERFORMED BY: [facility] [place] [address] PATHOLOGIST RESIDENTIAL CONSTRUCTION INSTRUCTOR ERICK GREEN M.D.Performed By: #### GLULS #### Point of Care testing ,Pathology Request for Lab Corpon 14-91-9083Pgzqvntal Request for Lab CorpNormal [facility] Physician GroupComment on above:Order Comment: GI SPECIMENResult Comment: See report. Scanned copy available in EMR. PERFORMED BY: [facility] [address] [facility]ENTERElderNAT[place] [id number] PATHOLOGIST RESIDENTIAL CONSTRUCTION INSTRUCTOR OMI SOLER M.D.Performed By: #### PATH TO [facility] #### [place] [id number] USACNNURSEon 01-73-7486GVKPNXDTtycb Visit (HEMASA) JEANNETTE HURTADO ([id number]) 1965 F Date Time Provider Department 09/27/24 3:00 PM MERVIN NURSE EDMUND CARRERO During your visit today, we recorded the following information about you: Temperature Pulse Respiration Blood pressure 97.2 degrees 65/minute 16/minute 163/90 Katina Howe MA 09/27/2024 3:14 PM Signed Patient Identification confirmed: yes. Injection given and documented on JUL per provider order. Katina Howe MA Referring Provider: MAITE MERRITT [[id number]] Allergies As of Date: 09/27/2024 Noted Allergy Reaction COMPAZINE (PROCHLORPERAZINE EDISY*01/13/2005 LATEX 01/21/2023 16 - Unknown Date Reviewed: 09/27/2024 Reviewed by: Ruben Wiggins APRN.WHITE HAT HACKER - Fully Assessed Primary Visit Diagnosis:Iron deficiency anemia secondary to inadequate dietary iron intake [D50.8] Order(s):cyanocobalamin 1,000 mcg injectionDisp: Rfl: TREATMENT PARAMETER-NOT NEEDED [[id number]] Order #: [id number]: 1 [facility] NURSING COMMUNICATION [[id number]] Order #: [id number]: 1 STANDING Prescriptions as of 09/27/2024 - solifenacin 10 mg tablet Take 1 tablet by mouth once daily. - folic acid 1 mg tablet Take 1 tablet by mouth once daily. - aspirin, enteric coated (ASPIRIN, ENTERIC COATED) [...] hours as needed for wheezing/shortness of breath. Facility-Administered Medications as of 09/27/2024 - cyanocobalamin 1,000 mcg injection (Completed) Meds Comments as of 07/11/2023: Patient unsure of medications, asked her to bring a list with her next visit. Mariela Sarmiento MA Problem List As Of Date 09/27/2024 Noted Resolved HIDRADENITIS [L73.2] 01/13/2005 Iron deficiency anemia secondary to inadequate *02/07/2023 Prescriptions ordered this encounter Disp Refills Start End CYANOCOBALAMIN (VIT B-12) 1,000 MCG/* 09/27/2024 09/27/2024 Route: INTRAMUSCULA Encounter Status:Closed by KATINA HOWE on 09/27/24NoSt. Francis HospitalCholesterol [Mass/volume] in Serum or PlasmaOrdered By: Haresh Middleton on 20-61-7543Mshlegjqpaj [Mass/Vol]Cholesterol [Mass/volume] in Serum or Plasma Hasz347-102BbaznswgpMercy Health St. Charles HospitalComment on above:Chol less than 200 mg/dl low riskChol 201-239 mg/dl borderline riskChol 240 mg/dl and greater high riskCholesterol in HDL [Mass/volume] in Serum or PlasmaOrdered By: Haresh Middleton on 96-00-0873Jjqtlnbwoim in HDL [Mass/Vol]Serum or plasma high density lipoprotein (HDL) cholesterol ecvjgalqkmf14-52VvmlewnscMercy Health St. Charles Hospital Comment on above:HDL CHOL ATP-III CLASSIFICATION Cardiovascular RiskHDL > or equal to 60 mg/dL LOWHDL < 40 mg/dL HIGHCholesterol in LDL Calc [Mass/Vol] Ordered By: Haresh Middleton on 82-37-1150Akantectwfd in LDL [Mass/Vol]Cholesterol in LDL [Mass/volume] in Serum or Plasma by calculationHigh0-100Mercy Health St. Charles HospitalComment on above:LDL ATP III CLASSIFICATIONLDL less than 100 mg/dL OptimalLDL 100-129 mg/dL Near or above iihtpfkOKM138-769 mg/dL Borderline highLDL 160-189 mg/dL HighLDL greater than 189 mg/dL Very high Cholesterol in VLDL Calc [Mass/Vol]Ordered By: Haresh Middleton on 09-19-2024 Cholesterol in VLDL [Mass/Vol]Cholesterol in VLDL [Mass/volume] in Serum or Plasma by calculationMercy Health St. Charles HospitalECH echo transthoracicon 67-79-4985JQL echo transthoracicELYRIA [facility] [place] [address] Echocardiogram Signed Patient: Jeannette Hurtado MR#: [id number] : 1965 Acct:[id number] Age/Sex: 58 / F ADM Date: 09/19/24 Loc: Room: Type: [facility] Attending Dr: Haresh Middleton MD Ordering Provider: Haresh Middleton MD Date of Service: 09/19/2412/07/736 ECH/ECH echo transthoracic: I25.10 - Atherosclerotic heart disease of [place] coronary... Copies to: Haresh Middleton MD Weight: 200 lb Performed By: SUSAN Santa BSA: 2.0 m2 BP: 156/85 mmHg HR: 58 Reason For Study: I25.10 - Atherosclerotic heart disease of [place] coronary... History: pre-DM, HTN, HLD, family history of CAD Interpretation Summary Ejection Fraction = 60-65%. The left ventricular size and thickness are normal. The left ventricular wall motion is normal. A variety of Doppler measurements indicate normal left ventricular diastolic function. There is trace tricuspid regurgitation. Right ventricular systolic pressure is normal. Compared to prior study, there is no significant change. Procedure/Quality: A two-dimensional transthoracic echocardiogram with color flow and Doppler was performed. The study was technically good in quality. Left Ventricle: The left ventricular size and thickness are normal. Ejection Fraction = 60-65%. A variety of Doppler measurements indicate normal left ventricular diastolic function. The left ventricular wall motion is normal. Left Atrium: The left atrium appears normal in size. Right Atrium: The right atrium appears normal in size. Right Ventricle: The right ventricle is normal in size and function. Aortic Valve: The aortic valve is normal in structure. No hemodynamically significant valvular aortic stenosis. No aortic regurgitation is present. Mitral Valve: The mitral valve is normal in structure. No significant mitral valve stenosis. There is no mitral regurgitation noted. Tricuspid Valve: The tricuspid valve is normal in structure. There is trace tricuspid regurgitation. Right ventricular systolic pressure is normal. Pulmonic Valve: The pulmonic valve is not well visualized. No significant pulmonic regurgitation. Arteries: The aortic root is normal size. Pericardium/Pleura: No pericardial effusion seen. IVC/Hepatic Veins: The inferior vena cava is normal in size, with a normal collapsibility index. Measurements with Normals IVSd: 1.2 cm (0.7-1.1 cm)LVIDd: 4.7 cm (3.7-5.4 cm) LVPWd: 1.1 cm (0.7-1.1 cm)LVIDs: 2.7 cm (2.3-3.6 cm) LA dimension: 3.9 cm (2.3-4.0 cm)Ao root diam: 2.6 cm(2.0-3.6 cm) asc Aorta Diam: 3.0 cm(2.1-3.4cm) Doppler with Normals RVSP(TR): 20.1 mmHg (18-35mmHg) LV V1 max: 118.4 cm/sec (0.7-1.7m/s)MV E max abdi: 100.0 cm/sec(0.8-1.3m/s) MV A max abdi: 85.4 cm/sec(0.0-0.0m/s) MV E/A: 1.2 (<1.5) MMode/2D Measurements Calculations RVDd: 3.3 cm FS: 42.8 % Ao root area: LVOT diam: 2.0 cm TAPSE: 3.3 cm EDV(Teich): 5.3 cm2 LVOT area: 3.0 cm2 RV S Abdi: 101.6 ml 12.1 cm/sec ESV(Teich): 26.6 ml EF(Teich): 73.8 % __ LVLd ap4: 7.0 cm SV(MOD-sp4): LAV(MOD-sp4): LA A2 area: 17.0 cm2 EDV(MOD-sp4): 35.8 ml 49.8 ml 56.6 ml LAV(MOD-sp2): LA A4 area: 19.3 cm2 LVLs ap4: 5.7 cm 42.3 ml LA length (vol): ESV(MOD-sp4): 5.9 cm 20.8 ml LA vol: 47.6 ml EF(MOD-sp4): 63.3 % LA vol index: 23.8 ml/m2 Doppler Measurements Calculations MV dec time: MV V2 max: E/E' lat: 10.4 MV dec slope: 0.24 sec 99.9 cm/sec E/E' med: 11.6 MV max P.0 mmHg 427.2 cm/sec2 MV V2 mean: 56.3 cm/sec MV mean P.5 mmHg MV V2 VTI: 31.4 cm MVA(VTI): 2.9 cm2 __ Ao V2 max: LV V1 max PG: TV max PG: TR max abdi: 164.4 cm/sec 5.6 mmHg 15.0 mmHg 194.1 cm/sec Ao max P.8 mmHgLV V1 mean PG: TR max P.1 mmHg Ao mean P.3 mmHg3.0 mmHg RAP systole: 5.0 mmHg Ao V2 mean: LV V1 mean: 110.2 cm/sec 79.1 cm/sec Ao V2 VTI: 37.3 cm LV V1 VTI: 30.5 cm SOFIA(I,D): 2.5 cm2 SOFIA(V,D): 2.2 cm2 Transcribed By: LINDSEY Performed At: 09/19/24 0749 Signed By: Haresh Middleton MD 09/19/[address] [place], [place] [address]Lipid Panelon 42-28-4121Uhhyozxgsel [Mass/Vol]212 mg/dLHigh 140-200The [facility] HospitalComment on above:Result Comment: Chol less than 200 mg/dl low risk Chol 201-239 mg/dl borderline risk Chol 240 mg/dl and greater high riskPerformed By: #### LIPID #### [facility] [address] [id number] USACholesterol in HDL [Mass/Vol]43 mg/mFMwtxir44-58Xjd [facility] River GulfportComment on above:Result Comment: HDL CHOL ATP-III CLASSIFICATION Cardiovascular Risk HDL > or equal to 60 mg/dL LOW HDL < 40 mg/dL HIGHPerformed By: #### LIPID #### [facility] [address] [place] [address] USACholesterol.total/Cholesterol in HDL [Mass ratio]4.9 {ratio}Normal<5.0The [facility] HospitalComment on above:Result Comment: PERFORMED BY: [place] [address] PATHOLOGIST RESIDENTIAL CONSTRUCTION INSTRUCTOR ERICK GREEN M.D.Performed By: #### LIPID #### [facility] [address] [place] [address] USALDL Cholesterol,Ztjorjormh499 mg/dLHigh0-100The [facility] Physician GroupComment on above:Result Comment: LDL ATP III CLASSIFICATION LDL less than 100 mg/dL Optimal LDL 100-129 mg/dL Near or above optimal LDL 130-159 mg/dL Borderline high LDL 160-189 mg/dL High LDL greater than 189 mg/dL Very highPerformed By: #### LIPID #### [facility] [address] [id number] USATriglyceride w/Ftqmal688 mg/dLHigh0-149[facility] Physician GroupComment on above:Result Comment: TRIG ATP III CLASSIFICATION TRIG less than 150 mg/dL Normal TRIG 150-199 mg/dL Borderline high TRIG 200-500 mg/dL High TRIG greater than 500 mg/dL Very high Standard traceable to the Center for Disease Conrtrol and Prevention (CDC) test method.Performed By: #### LIPID #### [facility] [address] [place] [address] USAVLDL OLDSQBDLVTH45 mg/dLNormalThe [facility] Physician GroupComment on above:Performed By: #### LIPID #### [facility] [address] [place] [address] USASerum or plasma total cholesterol/high density lipoprotein (HDL) cholesterol mass ratOrdered By: aHresh Middleton on 09-19-2024 Cholesterol.total/Cholesterol in HDL [Mass ratio]Serum or plasma total cholesterol/high density lipoprotein (HDL) cholesterol mass rat<5.0Mercy Health St. Charles HospitalTriglyceride [Mass/volume] in Serum or PlasmaOrdered By: Haresh Middleton on 98-39-0882Ecnnpbyuxsli [Mass/Vol]Triglyceride [Mass/volume] in Serum or PlasmaHigh0-149Mer[facility] Health St. Charles HospitalComment on above:TRIG ATP III CLASSIFICATIONTRIG less than 150 mg/dL NormalTRIG 150-199 mg/dL Borderline highTRIG 200-500 mg/dL High TRIG greater than 500 mg/dL Very highStandard traceable to the Center for Disease Conrtrol and Prevention (CDC) test method.Kimberlee 32-77-3790TECXKbspxohpm (PULMAV) VERONICA HURTADOLYN Kennedy ([id number]) 1965 F Date Time Provider Department 09/10/24 MAITE MERRITT During your visit today, we recorded the following information about you: Maite Merritt PA-C 09/10/2024 8:46 AM Signed Please call and advise that the patient's additional labs did not show anything concerning. SUNNY Kay Natalie, RN 09/10/2024 9:00 AM Signed Pt informed of MM message, once verified, using 2 patient identifiers. Patient denies any questions, needs or concerns at this time. Appointment verified. Kendal Sparks RN Allergies As of Date: 09/10/2024 Noted Allergy Reaction COMPAZINE (PROCHLORPERAZINE EDISY*01/13/2005 LATEX 01/21/2023 16 - Unknown Date Reviewed: 09/10/2024 Reviewed by: Maite Mreritt PA-C - Fully Assessed Reason for Visit: Results [95] Prescriptions as of 09/10/2024 - solifenacin 10 mg tablet Take 1 tablet by mouth once daily. - folic acid 1 mg tablet Take 1 tablet by mouth once daily. - aspirin, enteric coated (ASPIRIN, ENTERIC COATED) [...] Sarmiento MA Problem List As Of Date 09/10/2024 Noted Resolved HIDRADENITIS [L73.2] 01/13/2005 Iron deficiency anemia secondary to inadequate *02/07/2023 Encounter Status:Closed by KENDAL SPARKS on 09/10/24NoSt. Francis HospitalBCR/ABL1 P190 NCN P210 % IS MR BLOODon 57-76-2930YJK/ABL1 P190 NCN(%BCR/ABL1:ABL1)N/ANoUniversity Hospitals Ahuja Medical Center on above:Order Comment: Specimen Type: BLOOD SPECIMENOrdering Facility: [facility] Address:[address] [place], [place] [address]Performed By: #### BCRPB1 ####CLARITY ILLUMINA LIMSCLIA [id number] [place] [address] [place]#### ISMRNCNPB ####[facility] LABCLIA [id number] [address] STATES OF AMERICABCR/ABL1 P210 %ISN/[facility] on above: Order Comment: Specimen Type: BLOOD SPECIMENOrdering Facility: [facility] Address:[address] [place], [place] [address]Performed By: #### BCRPB1 ####CLARITY ILLUMINA LIMSCLIA [id number] [place] [address] [place]#### ISMRNCNPB ####[facility] LABCLIA [id number] [place] [address] [place] AMERICABCR/ABL1 P210 MRN/ANoUniversity Hospitals Ahuja Medical Center on above: Order Comment: Specimen Type: BLOOD SPECIMENOrdering Facility: [facility] Address:[address] [place], [place] [address]Performed By: #### BCRPB1 ####CLARITY ILLUMINA LIMSCLIA [id number] [place] [address] [place]#### ISMRNCNPB ####[facility] LABCLIA [id number] [address] STATES OF [facility] CENTERBCR/ABL1 P210 AND P190 DIAGNOSTIC PCR BLOODon 79-27-8210OKM/ABL1 P210 AND P190 DIAGNOSTIC PCR BLOOD RESULTNormalCOhio Valley Surgical HospitalComment on above:Order Comment: Specimen Type: BLOOD SPECIMENOrdering Facility: [facility] Address:[address] [place], [place] [address]Result Comment: BCR/ABL1 p210 and p190 Diagnostic PCR Laboratory Accession Number: [id number] Sample Type: Peripheral Blood Result: NOT DETECTED; negative for BCR/ABL1 p210 and p190 fusion transcripts. P190 NCN: N/A P210 MR: N/A %IS: N/A Interpretation: RT-PCR studies are negative for BCR/ABL1 p210 and p190 fusion transcripts. Very rare fusion transcripts, such as those involving exon 3 of ABL1 and alternate BCR fusion sites including the micro- breakpoint cluster region (p230 transcript), are not detected by this test. If clinical suspicion persists despite a negative test, the possibility of these very rare fusions can be further evaluated. In these cases, a bone marrow biopsy with cytogenetic karyotyping may be performed, followed by other more specific testing as clinically warranted and in consultation with the case hematopathologist and/or Molecular Pathology sign-out Staff. Limitations: This test detects the most common fusion transcripts, p210 (e13a2, e14a2) and p190 (e1a2, e1a3), which combined account for about 98-99 percent of BCR/ABL1 positive chronic myeloid leukemia and B-acute lymphoblastic leukemia/lymphoma cases. Other very rare fusion transcripts, such as those involving exon 3 of ABL1 and alternate BCR fusion sites including the micro-breakpoint cluster region (p230 transcript), are not detected by this test. Methodology: RNA was extracted from this sample, and cDNA prepared by reverse missile and missile checkout technician. Real time PCR was performed in two separate reactions, using primers for e13a2 and/or e14a2 BCR/ABL1 fusion transcripts and ABL1 transcripts for p210 detection and primers for e1a2 BCR/ABL1 fusion transcripts and ABL1 transcripts for p190 detection (QuantideX BCR/ABL IS assay, [employer], [place], [place]). This assay has a limit of quantification and limit of detection of 0.002 percent IS or MR4.7 for p210 fusion transcripts, and a limit of quantification of 0.0036 percent (LR4.4) and limit of detection of 0.0025 percent (LR4.6) for p190 transcripts. Levels detected above or below the assays' limits of quantitation are resulted as DETECTED and quantitation indicated as greater than or less than the limits of quantitation for the IS percent, MR level and NCN, respectively. Disclaimer: This test was developed and its performance characteristics determined by [facility]'s Pathology and Laboratory Medicine Department. It has not been cleared or approved by the FDA. [facility]'s Pathology and Laboratory Medicine Department is regulated under CLIA as certified to perform high-complexity testing. This test is used for clinical purposes. It should not be regarded as investigational or for research. Test performed at [facility], [address] [place] [address]. CLIA Number: [id number] Interpretation performed by ELA Gutierrezerformed By: #### BCRPB1 ####CLARITY ILLUMINA LIMSCLIA [id number] [place] [address] [place]#### ISMRNCNPB ####[facility] LABCLIA [id number] [address] OF [facility] CENTERCNNURSEon 70-88-0072ZTPMYPFJuevn Visit ([place]) JEANNETTE HURTADO ([id number]) 1965 F Date Time Provider Department 08/29/24 3:00 PM MERVIN NURSE EDMUND CARRERO During your visit today, we recorded the following information about you: Katina Howe MA 08/29/2024 2:49 PM Signed Patient Identification confirmed: yes. Injection given and documented on JUL per provider order. August MERVIN Howe Referring Provider: JOSE ROSE [[id number]] Allergies As of Date: 08/29/2024 Noted Allergy Reaction COMPAZINE (PROCHLORPERAZINE EDISY*01/13/2005 LATEX 01/21/2023 16 - Unknown Date Reviewed: 08/29/2024 Reviewed by: Maite Merritt PAPaolaC - Fully Assessed Primary Visit Diagnosis:Iron deficiency anemia secondary to inadequate dietary iron intake [D50.8] Order(s):TREATMENT PARAMETER-NOT NEEDED [[id number]] Order #: [id number]: 1 BCN NURSING COMMUNICATION [[id number]] Order #: [id number]: 1 STANDING [] cyanocobalamin 1,000 mcg injectionDisp: Rfl: Prescriptions as of 08/29/2024 - solifenacin 10 mg tablet Take 1 tablet by mouth once daily. - folic acid 1 mg tablet Take 1 tablet by mouth once daily. - aspirin, enteric coated (ASPIRIN, ENTERIC COATED) [...] Sarmiento MA Problem List As Of Date 08/29/2024 Noted Resolved HIDRADENITIS [L73.2] 01/13/2005 Iron deficiency anemia secondary to inadequate *02/07/2023 Prescriptions ordered this encounter Disp Refills Start End CYANOCOBALAMIN (VIT B-12) 1,000 MCG/* 08/29/2024 08/29/2024 Route: INTRAMUSCULA Encounter Status:Closed by MARIN AUGUST on 08/29/24[facility] Medical CenterCNOVSPon [id number] ([place]) Office ([place]) JEANNETTE HURTADO ([id number]) 1965 F Date Time Provider Department 08/29/24 2:30 PM MAITE MERRITT During your visit today, we recorded the following information about you: Temperature Pulse Respiration Blood pressure 97.8 degrees 61/minute 16/minute 145/80 Weight Height 91.8 kg 1.676 m Maite Merritt PA-C 08/29/2024 2:58 PM Signed NAME: Jeannette Hurtado CLINIC NO.: [id number] DATE OF SERVICE: August 29, 2024 Some elements in this clinic note that are critical to medical decision making have been carefully reviewed and included from a prior clinic note dated:June 06, 2024 (Shaina) Referring Provider: Dr. Klaudia Gomez Additional Clinicians [...] test and now has two coronary stents. CArdiology just stopped her Plavix 08/2024. Her labs from 08/22/2024 showed improvement in her ferritin after receiving 1000 mg total of venofer in March 2024. She continues her folic acid daily and monthly B12 IM injections. Her neutrophils and WBC remain elevated and I have ordered additional labs for this today. She will return in 3 months with repeat labs. - HPI: CASE HISTORY: Reverse Chronological Order 03/27/24-04/10/24 - venofer 1000 mg total given 10/02/24 - B12 IM monthly started 02/21/23-03/07/23 - venofer 900mg total given 01/05/2023 - CBC 9.2 > 11.2 / 35.6 < 277 11/12/2022 - Colonoscopy is negative. Recommended colonoscopy 10 years. Updated Visit, August 29, 2024: Adalgisa returns for follow up. Remains on folic acid daily and B12 IM monthly. Still has fatigue. No fever, chills, nausea, vomiting, weight loss, lymph node enlargement or other symptoms. Plavix stopped last week by cardiology. WBC and neutrophils remain elevated. Iron studies remain stable. Updated Visit, June 06, 2024: Patient here for follow up. Received venofer 200 x 5 doses in March 2024. Her energy level has been better. Here for follow up. Remains on folic acid and gets her B12 injections monthly. She has fallen a few times since her last visit. She lost her balance. No dizziness. No loss of consciousness. No headaches. Some blurred vision at times. She is on a new medicine, solifenacin for urinary incontinence for 2 months and it is helping. Updated Visit, March 14, 2024: Patient is [...] replacement / balancing that is offered by [facility] Updated Visit, July 11, 2023: Jeannette Hurtado [...] 2023: Iron deficiency identified.will trial oral iron (more content not included)... NormalGuernsey Memorial HospitalMYELOPROLIFERATIVE NEOPLASM PANEL BLOODon [id number] NEOPLASM PNL PERIPHERAL BLOODNormalCProMedica Flower Hospital on above:Order Comment: Specimen Type: BLOOD SPECIMENOrdering Facility: [facility] Address:[address] [place], [place] [address], [place] [address]Gxczkm Comment: Myeloproliferative Neoplasm Panel Laboratory Accession Number: [id number] Sample Type: Peripheral Blood Result: CALR - No variant detected (Reference sequence: [id number]). JAK2 - No variant detected (Reference sequence: [id number]). MPL - No variant detected (Reference sequence: [id number]). Interpretation: No variants were identified in CALR exon 9, JAK2 exons 12-16 or MPL exons 10 and 11. This result does not exclude the possibility of a myeloproliferative neoplasm. If clinically indicated, additional testing for a broader panel of myeloid neoplasm-associated mutations (i.e., Hematologic Neoplasms NGS panel) may be helpful to further assess for clonal hematopoiesis. Methodology: Genomic DNA extracted from blood or bone marrow was subject to an amplicon based method to enrich for CALR exon 9, JAK2 exons 12-16 and MPL exons 10 and 11, including the flanking canonical splicing sites. Pair-end DNA sequencing was performed on the Illumina instrument ([place], [place]). A customized bioinformatic pipeline was used to align the sequencing reads to the reference human genome (GRCh37/hg19). Benign common polymorphisms are not reported. Limitations: Sequence changes outside the analyzed regions, including intronic, noncoding, and splice-site variants, will not be identified by this test. The lower limit of detection of this assay is approximately 1% allele proportion for the JAK2 V617F, JAK2 exon 12, CALR Type 1 (p.O271Gss73, c.1099_1150del) and Type 2 (p.M076Xwu48, c.1154_1155insTTGTC), MPL W515 variants and approximately 5% allele proportion for all other variants. Variants below these limits of detection may be reported at the discretion of the molecular pathology professional staff if the technical quality of the sequencing is sufficient at that location and the call is unequivocal. Common germline polymorphisms are considered to represent wild type sequence and are not included in this report. The presence of nucleotide polymorphisms or variants at the annealing sites of the primers used in amplification and sequencing may cause allele drop-outs, hence a false negative result is possible. Disclaimer: This test was developed and its performance characteristics determined by [facility]'s Pathology and Laboratory Medicine Department. It has not been cleared or approved by the FDA. [facility]'s Pathology and Laboratory Medicine Department is regulated under CLIA as certified to perform high-complexity testing. This test is used for clinical purposes. It should not be regarded as investigational or for research. Test performed at [facility], [address] [place] [address]. CLIA Number: [id number] References: 1) Demetrio YI, Kristin A, Lazaro R, Carrillo J, Luis MJ, Manisha Mcqueen MM, et al. The 2016 revision to the World Health Organization (WHO) classification of myeloid neoplasms and acute leukemia. Blood 2016;127: 2391-405. 2) NCCN Guidelines, Myeloproliferative Neoplasms, Version 2.2018. 3) Frieda Sandra, Sergio VALDIVIA. Genomics of Myeloproliferative Neoplasms. J Clin Oncol. 2017 Jul 20;35(9):947-954. Interpretation performed by ELA Gutierrezerformed By: #### MPNP ####CLARITY ILLUMINA LIMSCLIA [id number] [address] Panel Informationon 71-84-3183AGC/abl to abl RatioN/A [facility] HospitalBCR/ABL1 (p210) %ISN/[facility] HospitalBCR/ABL1 (p210) MRN/[facility] HospitalBCR/abl1 (p210/p190) InterpretationSee Henry County HospitalComment on above:BCR/ABL1 p210 and p190 Diagnostic PCRLaboratory Accession Number: [id number] Type: Peripheral BloodResult:NOT DETECTED; negative for BCR/ABL1 p210 and p190 fusion transcripts.H334HEN: N/NN235LJ: N/A%IS: N/AInterpretation:RT-PCR studies are negative for BCR/ABL1 p210 and p190 fusiontranscripts. Very rare fusion transcripts, such as those involvingexon 3 of ABL1 and alternate BCR fusion sites including the micro-breakpoint cluster region (p230 transcript), are not detected by thistest. If clinical suspicion persists despite a negative test, thepossibility of these very rare fusions can be further evaluated. Inthese cases, a bone marrow biopsy with cytogenetic karyotyping may beperformed, followed by other more specific testing as clinicallywarranted and in consultation with the case hematopathologist and/orMolecular Pathology sign-out Staff.Limitations:This test detects the most common fusion transcripts, p210 (e13a2,e14a2) and p190 (e1a2, e1a3), which combined account for about 98-99percent of BCR/ABL1 positive chronic myeloid leukemia and B-acutelymphoblastic leukemia/lymphoma cases. Other very rare fusiontranscripts, such as those involving exon 3 of ABL1 and alternate BCRf usion sites including the micro-breakpoint cluster region ([id number]), are not detected by this test.Methodology:RNA was extracted from this sample, and cDNA prepared by reversetranscription. Real time PCR was performed in two separate reactions,using primers for e13a2 and/or e14a2 BCR/ABL1 fusion transcripts andABL1 transcripts for p210 detection and primers for e1a2 BCR/KJV9nzoedz transcripts and ABL1 transcripts for p190 detection (QuantideXBCR/ABL IS assay, [employer], [place], [place]). This assay has a limit ofquantification and limit of detection of 0.002 percent IS or MR4.7 envb006 fusion transcripts, and a limit of quantification of 0.0036percent (LR4.4) and limit of detection of 0.0025 percent (LR4.6) igws896 transcripts. Levels detected above or below the assays' limits ofquantitation are resulted as DETECTED and quantitation indicated as greater than or less than the limits of quantitation for the ISpercent, MR level and NCN, respectively.Disclaimer:This test was developed and its performance characteristics determinedby [facility]'s [facility] Medic ine Department. Ithas not been cleared or approved by the FDA. [facility]'s[facility] Medicine Department is regulated under CLIAas certified to perform high-complexity testing. This test is used forclinical purposes. It should not be regarded as investigational or forresearch.Test performed at [facility], [facility]0 [facility], [place]. CLIA Number: [id number] performed by Joyce Schwartz, MDMyeloprolif Neoplasm ResultSee Henry County HospitalComment on above: Myeloproliferative Neoplasm PanelLaboratory Accession Number: [id number] Type: Peripheral BloodResult:CALR - No variant detected (Reference sequence: [id number]).JAK2 - No variant detected (Reference sequence: [id number]).MPL - No variant detected (Reference sequence: [id number]).Interpretation:No variants were identified in CALR exon 9, JAK2 exons 12-16 or MPLexons 10 and 11. This result does not exclude the possibility of amyeloproliferative neoplasm. If clinically indicated, additionaltesting for a broader panel of myeloid neoplasm- associated mutations(i.e., Hematologic NeoplasmsNGS panel) may be helpful to furtherassess for clonal hematopoiesis.Methodology:Genomic DNA extracted from blood or bone marrow was subject to anamplicon based method to enrich for CALR exon 9, JAK2 exons 12-16 andMPL exons 10 and 11, including the flanking canonical splicing sites.Pair-end DNA sequencing was performed on the [employer] instrument ([place], [place]). A customized bioinformatic pipelinewas used to align thesequencing reads to the reference human genome (GRCh37/hg19). Benigncommon polymorphisms are not reported.Limitations:Sequence changes outside the analyzed regions, including intronic,noncoding, and splice-site variants, will not be identified by thistest. The lower limit of detection of this assay is approximately 1%allele proportion for the JAK2 V617F, JAK2 exon 12, CALR Type 1(p.Z490Uuz71, c.1099_1150del) and Type 2 (p.H171Ijr75,c.1154_1155insTTGTC), MPL W515 variants and approximately 5% alleleproportion for all other variants. Variants below these limits ofdetection may be reported at the discretion of the molecular pathologyprofessional staff if the technical quality of the sequencing issufficient at that location and the call is unequivocal. Commongermline polymorphisms are considered to represent wild type sequenceand are not included in this report. The presence of nucleotidepolymorphisms or variants at the annealing sites of the primers usedin amplification and sequencing may cause allele drop-outs, hence afalse negative result is possible.Disclaimer:This test was developed and its performance characteristics determinedby [facility]and [facility]. Ithas not been cleared or approved by the FDA. [facility]'s[facility] Department is regulated under CLIAas certified to perform high-complexity testing. This test is used forclinical purposes. It should not be regarded as investigational or forresearch.Test performed at [facility], [address] [place], [place] [id number]. [place] Number: [id number]:1) Demetrio DA, Kristin A, Lazaro R, Carrillo J, Luis MJ, Manisha Mcqueen MM,et al. The 2016 revision to the World Health Organization (WHO)classification of myeloid neoplasms and acute leukemia. Uipqk4140;127: 2391-405.2) NCCN Guidelines, Myeloproliferative Neoplasms, Version 2.2018.3) Frieda Sandra, Sergio VALDIVIA. Genomics of Myeloproliferative Neoplasms. J ClinOncol. 2017 Aug 02;35(9):947-954.Interpretation performed by Velma Gutierrez reticulocyte counton 93-38-2926Tboqlvsrhrntq (Bld) [#/Vol]Absolute reticulocyte count0.018-0.100[facility]. Charles HospitalBasophils Auto (Bld) [#/Vol]on 45-58-8451Hzaisbrar (Bld) [#/Vol]Automated basophil count<0.11[facility] Charles HospitalBasophils/100 WBC Auto (Bld)on 56-16-0164Ibppemnsc/100 WBC (Bld) Automated basophil %[facility] Charles HospitalBlood manual differential comment interpretation narrativeon 95-08-7525Yyijrr differential comment Alec (Bld) [Interp]Blood manual differential comment interpretation narrative [facility] Charles HospitalCBC W Auto Differential panel (Bld)on 83-25-2581Cicsbyomq (Bld) [#/Vol]0.08 10*3/uLNormal<0.11CProMedica Flower Hospital on above:Order Comment: Specimen Type: BLOOD SPECIMENOrdering Facility: [facility] Address:[address] [place] [address]Yugfczjcz By: #### 30142-0, 75290-3 ####[facility] LABCLIA [id number] [place], [place] [address]Irschugtr/100 WBC (Bld)0.7 %NormalNorwalk Memorial Hospital on above:Order Comment: Specimen Type: BLOOD SPECIMENOrdering Facility: [facility] Address:[address] [place], [place] [address]Performed By: #### 65016-8, 95163-2 ####[facility] LABCLIA [id number] [place], [place] [address]Tzpozidvlvvi cell count method Nom (Bld)AutoNormal [facility] HospitalComselect [facility] on above:Order Comment: Specimen Type: BLOOD SPECIMENOrdering Facility: [facility] Address:[address] [place], [place] [address]Performed By: #### 19672-5, 62867-0 ####[facility] LABCLIA [id number] [place] [address] Eosinophils (Bld) [#/Vol]0.22 10*3/uLNormal<0.46[facility] Comment on above:Order Comment: Specimen Type: BLOOD SPECIMENOrdering Facility: [facility] Address:[address] [place] [address] Performed By: #### 43741-4, 57557-8 ####[facility] LABIA [id number] [place], [place] [address]Zajwjcmnxqt/100 WBC (Bld)1.9 %NormalNorwalk Memorial Hospital on above:Order Comment: Specimen Type: BLOOD SPECIMENOrdering Facility: [facility] Address:[address] [place], [place] [address]Performed By: #### 39167-0, 54468-9 ####[facility] LABCLIA [id number] [place], [place] [address]Mhkbkiptwop distribution width (RBC) [Ratio]13.1 %Normal 11.5-15.0[facility] on above:Order Comment: Specimen Type: BLOOD SPECIMENOrdering Facility: [facility] Address:[address] [place], [place] [address]Performed By: #### 81989-7, 60773-0 ####[facility] LABCLIA [id number] [place], [place] [address]Lhzptcqhan (Bld) [Volume fraction]37.0 %Kuzlmv78.0-46.0 [facility] on above:Order Comment: Specimen Type: BLOOD SPECIMENOrdering Facility: [facility] Address:[address] [place], [place] [address]Performed By: #### 19234-5, 22322-4 ####[facility] LABIA [id number] [place] [address] Hemoglobin (Bld) [Mass/Vol]12.5 g/hFUgipfk89.5-15.5COhio Valley Surgical Hospital Comment on above:Order Comment: Specimen Type: BLOOD SPECIMENOrdering Facility: [facility] Address:[address] [place] [address] Performed By: #### 60404-7, 46596-0 ####[facility] LABIA [id number] [place], [place] [address]Rrcsefet granulocytes (Bld) [#/Vol]0.04 10*3/uLNormal<0.10[facility] HospitalComment on above: Order Comment: Specimen Type: BLOOD SPECIMENOrdering Facility: [facility] Address:[address] [place], [place] [address]Performed By: #### 21105- 0, 73983-1 ####[facility] LABIA [id number] [place], [place] [address]Pgvtixfj granulocytes/100 WBC (Bld)0.3 %Normal [facility] on above:Order Comment: Specimen Type: BLOOD SPECIMENOrdering Facility: [facility] Address:[address] [place], [place] [address]Performed By: #### 76238-7, 78577-6 ####[facility] LABIA [id number] [place] [address] Lymphocytes (Bld) [#/Vol]1.94 10*3/uLNormal1.00-4.00[facility] Comment on above:Order Comment: Specimen Type: BLOOD SPECIMENOrdering Facility: [facility] Address:[address] [place] [address] Performed By: #### 32922-3, 06205-5 ####[facility] LABCLIA [id number] [place], [place] [address]Wdmtjfpuxpf/100 WBC (Bld)16.7 %NormalNorwalk Memorial Hospital on above:Order Comment: Specimen Type: BLOOD SPECIMENOrdering Facility: [facility] Address:[address] [place], [place] [address]Performed By: #### 24933-6, 57269-5 ####[facility] LABIA [id number] [place], [place] [address]JSR (RBC) [Entitic mass]32.2 xzKmtqwn43.0-34.0[facility] on above:Order Comment: Specimen Type: BLOOD SPECIMENOrdering Facility: [facility] Address:[address] [place], [place] [address]Performed By: #### 84666-7, 55094-0 ####[facility] LABIA [id number] [place], [place] [address]VTJE (RBC) [Mass/Vol]33.8 g/aJJjcrma15.5-36.0[facility] on above:Order Comment: Specimen Type: BLOOD SPECIMENOrdering Facility: [facility] Address:[address] [place], [place] [address]Performed By: #### 58102-9, 59358-0 ####[facility] LABIA [id number] [place], [place] [address]STC (RBC) [Entitic vol]95.4 fLNormal 80.0-100.0[facility] on above:Order Comment: Specimen Type: BLOOD SPECIMENOrdering Facility: [facility] Address:[address] [place], [place] [address]Performed By: #### 81723-8, 42566-3 ####[facility] LABCLIA [id number] [place], [place] [address]Ldvtvbekn (Bld) [#/Vol]0.70 10*3/uLNormal<0.87[facility] on above:Order Comment: Specimen Type: BLOOD SPECIMENOrdering Facility: [facility] Address:[address] [place], [place] [address]Performed By: #### 31177-5, 23971-4 ####[facility] LABCLIA [id number] [place] [address] Monocytes/100 WBC (Bld)6.0 %NormalNorwalk Memorial Hospital on above: Order Comment: Specimen Type: BLOOD SPECIMENOrdering Facility: [facility] Address:[address] [place], [place] [address]Performed By: #### 88413- 0, 48584-0 ####[facility] LABCLIA [id number] [place], [place] [address]Ofxthvtnyzw (Bld) [#/Vol]8.61 10*3/uLHigh1.45-7.50 [facility] on above:Order Comment: Specimen Type: BLOOD SPECIMENOrdering Facility: [facility] Address:[address] [place], [place] [address]Performed By: #### 23944-3, 79405-4 ####[facility] LABCLIA [id number] [place] [address] Neutrophils/100 WBC (Bld)74.4 %NormalNorwalk Memorial Hospital on above: Order Comment: Specimen Type: BLOOD SPECIMENOrdering Facility: [facility] Address:[address] [place], [place] [address]Performed By: #### 09066- 0, 75131-2 ####[facility] LABIA [id number] [place], [place] [address]Ulqbwsphc RBC (Bld) [#/Vol]10*3/uLNormal<0.01 [facility] on above:Order Comment: Specimen Type: BLOOD SPECIMENOrdering Facility: [facility] Address:[address] [place], [place] [address]Performed By: #### 22895-3, 07716-4 ####[facility] LABCLIA [id number] [place] [address] Nucleated RBC/100 WBC (Bld) [Ratio]0.0 /100 WBCNormalCOhio Valley Surgical Hospital Comment on above:Order Comment: Specimen Type: BLOOD SPECIMENOrdering Facility: [facility] Address:[address] [place] [address] Performed By: #### 77123-8, 14625-2 ####[facility] LABCLIA [id number] [place], [place] [address]Cmuevejk mean volume (Bld) [Entitic vol]9.7 fLNormal9.0-12.7CProMedica Flower Hospital on above:Order Comment: Specimen Type: BLOOD SPECIMENOrdering Facility: [facility] Address:[address] [place], [place] [address]Performed By: #### 37140-0, 40594-3 ####[facility] LABCLIA [id number] [place], [place] [address]Orhjvgfxs (Bld) [#/Vol]205 10*3/uLNormal 150-400[facility] on above:Order Comment: Specimen Type: BLOOD SPECIMENOrdering Facility: [facility] Address:[address] [place], [place] [address]Performed By: #### 16605-3, 62776-8 ####[facility] LABCLIA [id number] [place], [place] [address]IIW (Bld) [#/Vol]3.88 10*6/uLLow3.90-5.20[facility] on above:Order Comment: Specimen Type: BLOOD SPECIMENOrdering Facility: [facility] Address:[address] [place] [address] Performed By: #### 64410-9, 30551-7 ####[facility]ENTERIA [id number] [place], [place] [address]GXJ (Bld) [#/Vol]11.59 10*3/uLHigh3.70-11.00[facility] on above:Order Comment: Specimen Type: BLOOD SPECIMENOrdering Facility: [facility] Address:[address] [place], [place] [address]Performed By: #### 03014-7, 91811-3 ####[facility] LABIA [id number] [place], [place] [address]Bavfyyanjikhw metabolic 2000 panelon 10-69-4037Gyevzox [Mass/Vol]4.6 g/dLNormal3.9-4.9CProMedica Flower Hospital on above:Order Comment: Specimen Type: BLOOD SPECIMENOrdering Facility: [facility] Address:[address] [place], [place] [address]Performed By: #### 22746- 8, 2532-0 ####[facility] LABIA [id number] [place], [place] [address]ZPF [Catalytic activity/Vol]103 U/NBcthhq14-961 [facility] on above:Order Comment: Specimen Type: BLOOD SPECIMENOrdering Facility: [facility] Address:[address] [place], [place] [address]Performed By: #### 80177-7, 2532-0 ####[facility] LABCLIA [id number] [place], [place] [address]JIC [Catalytic activity/Vol]22 U/LNormal7-38[facility] on above:Order Comment: Specimen Type: BLOOD SPECIMENOrdering Facility: [facility] Address:[address] [place], [place] [address]Performed By: #### 06100-7, 2532-0 ####[facility] LABCLIA [id number] [facility] [place], [place] [address]Lmw[place] gap [Moles/Vol]11 mmol/LNormal8-15 [facility] on above:Order Comment: Specimen Type: BLOOD SPECIMENOrdering Facility: [facility] Address:[address] [place], [place] [address]Performed By: #### 92182-7, 2531-0 ####[facility] LABCLIA [id number] [place], [place] [address]EQA [Catalytic activity/Vol]30 U/PNyqrxa85-95RmtksloqeNorwalk Memorial Hospital on above:Order Comment: Specimen Type: BLOOD SPECIMENOrdering Facility: [facility] Address:[address] [place], [place] [address]Performed By: #### 40551-5, 0 ####[facility] LABCLIA [id number] [place], [place] [address]Vpdlmvpbv [Mass/Vol]0.5 mg/dLNormal0.2-1.3 [facility] on above:Order Comment: Specimen Type: BLOOD SPECIMENOrdering Facility: [facility] Address:[address] [place], [place] [address]Performed By: #### 11416-8, 2531-0 ####[facility] LABCLIA [id number] [place], [place] [address]Lklntme [Mass/Vol]10.0 mg/dLNormal8.5-10.2CProMedica Flower Hospital on above: Order Comment: Specimen Type: BLOOD SPECIMENOrdering Facility: [facility] Address:[address] [place], [place] [address]Performed By: #### 32497- 8, 2531-0 ####[facility] LABCLIA [id number] [place], [place] [address]Yomrjmgm [Moles/Vol]102 mmol/FHdcwpk75-932NosykvuwoNorwalk Memorial Hospital on above:Order Comment: Specimen Type: BLOOD SPECIMENOrdering Facility: [facility] Address:[address] [place] [address]Zeqfxhdon By: #### 15676-9, 0 ####[facility] LABCLIA [id number] [place], [place] [address]XP1 [Moles/Vol]26 mmol/POmmgqw77-40JgdwprnvuNorwalk Memorial Hospital on above:Order Comment: Specimen Type: BLOOD SPECIMENOrdering Facility: [facility] Address:[address] [place] [address]Nbmwgjhor By: #### 22285- 8, ####[facility] LABCLIA [id number] [place], [place] [address]Aohvdpectp [Mass/Vol]0.96 mg/dLNormal0.58-0.96 [facility] on above:Order Comment: Specimen Type: BLOOD SPECIMENOrdering Facility: [facility] Address:[address] [place], [place] [address]Performed By: #### 35192-0, 0 ####[facility] LABCLIA [id number] [place] [address] Creatinine and Glomerular filtration rate.predicted panel (S/P/Bld)68 mL/min/1.73m???Normal>=60[facility] on above:Order Comment: Specimen Type: BLOOD SPECIMENOrdering Facility: [facility] Address:[address] [place], [place] [address]Result Comment: Estimated Glomerular Filtration Rate (eGFR) is calculated using the 2020 CKD-EPI cre atinine equation. This equation utilizes serum creatinine, sex, and age as parameters. The creatinine assay has traceable calibration to isotope dilution- mass spectrometry. Refer to KDIGO guidelines for clinical interpretation. In patients with unstable renal function, e.g. those with acute kidney injury, the eGFR may not accurately reflect actual GFR.Performed By: #### 42861-4, 0 ####[facility] LABCLIA [id number] [place], [place] [address]Yipggzw [Mass/Vol]149 mg/hZAfxm09-37AskdhckjsNorwalk Memorial Hospital on above:Order Comment: Specimen Type: BLOOD SPECIMENOrdering Facility: [facility] Address:[address] [place], [place] [address]Result Comment: The [place] Diabetes Association (ADA) provides guidance for cutoff values for fasting glucose and random glucose. The ADA defines fasting as no caloric intake for at least 8 hours. Fasting plasma glucose results between 100 to 125 mg/dL indicate increased risk for diabetes (prediab etes). Fasting plasma glucose results greater than or [...] Standards of Medical Care in Diabetes 2016, [place] [employer] Association. Diabetes Care. 2016.39(Suppl 1).Performed By: #### 40944-7, ####[facility] LABCLIA [id number] [place], [place] [address]Hkgxnhpbm [Moles/Vol]4.3 mmol/LNormal3.7-5.1CProMedica Flower Hospital on above:Order Comment: Specimen Type: BLOOD SPECIMENOrdering Facility: [facility] Address:[address] [place], [place] [address]Performed By: #### 21769-0, 0 ####[facility] LABCLIA [id number] [place], [place] [address]Egkuywo [Mass/Vol]7.2 g/dLNormal6.3-8.0[facility] on above:Order Comment: Specimen Type: BLOOD SPECIMENOrdering Facility: [facility] Address:[address] [place], [place] [address]Performed By: #### 84787- 8, 0 ####[facility] LABCLIA [id number] [place], [place] [address]Qsgqbn [Moles/Vol]139 mmol/OYdxvod393-404PwvjavyaeGuernsey Memorial HospitalComment on above:Order Comment: Specimen Type: BLOOD SPECIMENOrdering Facility: [facility] Address:[address] [place], [place] [address]Performed By: #### 70744-2, 2532-0 ####[facility] LABCLIA [id number] [place], [place] [address]Cwip nitrogen [Mass/Vol]21 mg/dLNormal7-21[facility] on above: Order Comment: Specimen Type: BLOOD SPECIMENOrdering Facility: [facility] Address:[address] [place], [place] [address]Performed By: #### 71149- 8, 2531-0 ####[facility] LABCLIA [id number] [place], [place] [address]Kvjfopstscb/100 WBC Auto (Bld)on 08-22-2024 Eosinophils/100 WBC (Bld)Automated eosinophil %[facility] Erythrocyte distribution width Auto (RBC) [Ratio]on 39-07-7917Tvbjlpajvlx distribution width (RBC) [Ratio]Erythrocyte distribution width [Ratio] by Automated count11.5-15.0[facility]. Charles HospitalFerritin SerPl-mCncon 91-18-0274Lqlgaquv [Mass/Vol]421.0 ng/jVVzdr39.7-205.1COhio Valley Surgical Hospital Comment on above:Order Comment: Specimen Type: BLOOD SPECIMENOrdering Facility: [facility] Address:[address] [place] [address] Performed By: #### 2276-4, 2132-9, 38419-0, 2284-8 ####[facility] LABCLIA [id number] [facility] [id number] [place], [place] [id number] [place] OF AMERICAFolate SerPl-mCncon 18-74-3454Sosvfo [Mass/Vol]ng/mLNormal>4.7 [facility] on above:Order Comment: Specimen Type: BLOOD SPECIMENOrdering Facility: [facility] Address:[address] [place], [place] [address]Result Comment: A result of > 20 ng/mL is not necessarily indicative of a pathologic or treatable condition: it reflects a limitation of the test methodology. Assay reference range: 4.8 to 24.2 ng/mL. Suitable for detection of folate deficiency. Reference: Folate III (Folate III) [package insert V 1.0 Austrian]. [facility], [place], [place]: March 2015.Performed By: #### 2276-4, 9, 37278-6, 2283-12 ####[facility] LABCLIA [id number] [place] [id number] [place] OF AMERICAHematocrit Auto (Bld) [Volume fraction]on 46-92-6754Mekpirodhx (Bld) [Volume fraction]Hematocrit [Volume Fraction] of Blood by Automated count36.0-46.0[facility] Hemoglobin [Mass/volume] in Bloodon 75-99-4889Jxdcifkbct (Bld) [Mass/Vol] Hemoglobin [Mass/volume] in Blood11.5-15.5FMercy Health St. Elizabeth Boardman HospitalIron and Iron binding capacity panelon 55-00-9207Hulx [Mass/Vol]33 ug/pSWkw50-798 [facility] on above:Order Comment: Specimen Type: BLOOD SPECIMENOrdering Facility: [facility] Address:[address] [place], [place] [address]Performed By: #### 2276-4, 2132-01, 63338-7, 2283-12 ####[facility] LABCLIA [id number] [address] [address] [place] OF AMERICAIron binding capacity [Mass/Vol] 343 ug/xCApexdq246-201YypttyaqsNorwalk Memorial Hospital on above:Order Comment: Specimen Type: BLOOD SPECIMENOrdering Facility: [facility] Address:[address] [place], [place] [address]Performed By: #### 2276-4, 9, 22269-8, 8 ####[facility] LABCLIA [id number] [place] [id number] [place] OF AMERICAIron/TIBC [Molar ratio]9.6 %Low15.0-57.0Guernsey Memorial HospitalComment on above:Order Comment: Specimen Type: BLOOD SPECIMENOrdering Facility: [facility] Address:[address] [place], [place] [address]Performed By: #### 2276-4, 2132-9, 39942-3, 2284-8 ####[facility] LABCLIA [id number] [place] [address] [place] AMERICAIron binding capacity [Mass/volume] in Serum or Plasmaon 63-74-3454Aldx binding capacity [Mass/Vol] Iron binding capacity [Mass/volume] in Serum or Tatyhx049-327HjftydsryMercy Health St. Charles HospitalIron saturation [Mass Fraction] in Serum or Plasmaon 08-22-2024 Iron saturation [Mass fraction]Iron saturation [Mass Fraction] in Serum or WycttaBqv75.0-57.0[facility] Charles HospitalLD SerPl-cCncon 08-22-2024 LDH [Catalytic activity/Vol]146 U/WXyvsgv387-662VuhlfawveGuernsey Memorial Hospital Comment on above:Order Comment: Specimen Type: BLOOD SPECIMENOrdering Facility: [facility] Address:[address] [place] [address] Performed By: #### 40627-5, 2532-0 ####[facility] LABCLIA [id number] [place], [place] [address]Uamuptjyvx - Chemistry and Chemistry - challengeon 63-82-7940Abwrgtd [Mass/Vol]4.6 g/dL3.9-4.9[facility] Charles HospitalALP [Catalytic activity/Vol]103 U/T02-111JyayimdyqMercy Health St. Charles HospitalALT [Catalytic activity/Vol]22 U/L7-38[facility] St[facility] Charles HospitalAST [Catalytic activity/Vol]30 U/C49-21StrtpnxryMercy Health St. Charles HospitalBilirubin [Mass/Vol]0.5 mg/dL0.2-1.3FMercy Health St. Elizabeth Boardman Hospital Calcium [Mass/Vol]10.0 mg/dL8.5-10.2FMercy Health St. Elizabeth Boardman HospitalChloride [Moles/Vol]102 mmol/H15-847EspihlatoMercy Health St. Charles HospitalCO2 [Moles/Vol]26 mmol/C02-86LmuvusvmcMercy Health St. Charles HospitalCobalamin (Vitamin B12) [Mass/Vol] 700 pg/rX995-0961DtdnnxbivMercy Health St. Charles HospitalCreatinine [Mass/Vol]0.96 mg/dL0.58-0.96[facility] Charles HospitalFerritin [Mass/Vol]421.0 ng/mL High14.7-205.1FMercy Health St. Elizabeth Boardman HospitalGlucose [Mass/Vol]149 mg/dLHigh 74-99[facility] Health St. Charles HospitalComment on above:The [place] Diabetes Association (ADA) provides guidance for cutoff [...] hyperglycemia or hyperglycemic crisis, random plasma glucose resultsgreater than or equal to 200 mg/dL meet the criteria for diagnosis of diabetes.Reference: [employer] in Diabetes 2016, [place] [employer]. Diabetes Care. 2016.39(Suppl 1). Iron [Mass/Vol]33 ug/bMYqf90-358XewmjzfvgMercy Health St. Charles HospitalLDH [Catalytic activity/Vol]146 U/A922-173RostljsoaMercy Health St. Charles HospitalPotassium [Moles/Vol]4.3 mmol/L3.7-5.1FMercy Health Kings Mills Hospitalodium [Moles/Vol] 139 mmol/Z552-262GsmsucygpMercy Health St. Charles HospitalUrea nitrogen [Mass/Vol]21 mg/dL7-21[facility] HospitalLaboratory - Hematology and Cell countson 75-31-3527Vklozfgqlzp (Bld) [#/Vol]0.22 10*3/uL<0.46[facility] HospitalImmature granulocytes (Bld) [#/Vol]0.04 10*3/uL<0.10[facility] HospitalImmature granulocytes/100 WBC (Bld)0.3 %[facility] HospitalLeukocytes [#/volume] corrected for nucleated erythrocytes in Blood by Automated counon 99-11-4132XNG corrected for nucl RBC Auto (Bld) [#/Vol]Leukocytes [#/volume] corrected for nucleated erythrocytes in Blood by Automated counHigh3.70-11.00[facility] Lymphocytes Auto (Bld) [#/Vol]on 55-72-0598Zpvgxqdphgw (Bld) [#/Vol]Lymphocytes [#/volume] in Blood by Automated count1.00-4.00[facility] Lymphocytes/100 WBC Auto (Bld)on 32-72-5554Zwrctzwpdzb/100 WBC (Bld) Lymphocytes/100 leukocytes in Blood by Automated countOhio State University Wexner Medical CenterH Auto (RBC) [Entitic mass]on 85-51-2325GKP (RBC) [Entitic mass]MCH [Entitic mass] by Automated count26.0-34.0[facility] HospitalMCHC Auto (RBC) [Mass/Vol]on 58-36-9504EQZO (RBC) [Mass/Vol]MCHC [Mass/volume] by Automated count30.5-36.0[facility] HospitalMCV Auto (RBC) [Entitic vol]on 21-21-4780AOH (RBC) [Entitic vol]MCV [Entitic volume] by Automated count 80.0-100.0[facility] HospitalMonocytes Auto (Bld) [#/Vol]on 67-63-5756Uejesuute (Bld) [#/Vol]Automated blood monocyte count<0.87[facility] HospitalMonocytes/100 WBC Auto (Bld)on 41-47-3046Mtmrdffig/100 WBC (Bld)Automated monocyte %[facility] HospitalNeutrophils Auto (Bld) [#/Vol]on 25-25-0817Wjvxvdhxjrz (Bld) [#/Vol]Neutrophils [#/volume] in Blood by Automated countHigh1.45-7.50[facility] Neutrophils/100 WBC Auto (Bld)on 69-08-8911Ccsmdtxrmqn/100 WBC (Bld)Automated neutrophil %[facility] HospitalNo Panel Informationon 08-22-2024 Estimated GFR (CKD-EPI)68 mL/min/1.73m???>=60[facility] Comment on above:Estimated Glomerular Filtration Rate (eGFR) is calculated using the 2020 CKD-EPI creatinine equation. This equation utilizes serum creatinine, sex, and age as parameters. The creatinine assay has traceable calibration to isotope dilution-mass spectrometry. Refer to KDIGO guidelines for clinical inte rpretation. In patients with unstable renal function, e.g. those with acute kidney injury, the eGFRmay not accurately reflect actual GFR.Folate>20.0 ng/mL >4.7FMercy Health St. Elizabeth Boardman HospitalComment on above:A result of > 20 ng/mL is not necessarily indicative of a pathologic or treatable condition: it reflects a limitation of the test methodology.Assay reference range: 4.8 to 24.2 ng/mL. Suitable fordetection of folate deficiency.Reference:Folate III (Folate III) [package insert V 1.0 Austrian]. [facility], [place], [place]: March 2015.Nucleated RBC Auto (Bld) [#/Vol]on 51-19-2207Lajirazam RBC (Bld) [#/Vol] Nucleated erythrocytes [#/volume] in Blood by Automated count<0.01[facility] Charles HospitalNucleated erythrocytes [Presence] in Blood by Automated counton 17-31-8358Gtiumjxvt RBC Auto Ql (Bld)Nucleated erythrocytes [Presence] in Blood by Automated countMercy Health St. Charles HospitalPlatelet mean volume Auto (Bld) [Entitic vol]on 62-50-2952Swfgotvl mean volume (Bld) [Entitic vol] Platelet mean volume [Entitic volume] in Blood by Automated count9.0-12.[address] Charles HospitalPlatelets Auto (Bld) [#/Vol]on 08-22-2024 Platelets (Bld) [#/Vol]Platelets [#/volume] in Blood by Automated lmnme803-[address] [facility] HospitalProtein [Mass/volume] in Serum or Plasmaon 21-42-5380Pntfgma [Mass/Vol]Protein [Mass/volume] in Serum or Plasma6.3-8.[address] [facility] HospitalRBC Auto (Bld) [#/Vol]on 43-76-3630WBZ (Bld) [#/Vol]Erythrocytes [#/volume] in Blood by Automated countLow3.90-5.20[facility] HospitalRetics #on 95-25-7036Kdktbbmkpywjf (Bld) [#/Vol]0.66515 10*3/uLNormal0.018-0.100[facility] on above:Order Comment: Specimen Type: BLOOD SPECIMENOrdering Facility: [facility] Address:[address] [place], [place] [address]Performed By: #### 32468- 0, 89857-9 ####[facility] LABIA [id number] [place], [place] [address]Naklqpfhhcxjx (Bld) [#/Vol]on 08-22-2024 Reticulocytes/100 RBC (Bld)2.0 %Normal0.4-2.0[facility] on above:Order Comment: Specimen Type: BLOOD SPECIMENOrdering Facility: [facility] Address:[address] [place] [address] Performed By: #### 84096-3, 71039-5 ####[facility] LABIA [id number] [place], [place] [address]Tinnjoffhhvwc/100 RBC Auto (Bld)on 66-14-7139Bkdivpzceofdt/100 RBC (Bld)Reticulocyte % auto0.4-2.0 Flower Hospitalerum or plasma anion gap determinationon 32-12-4088Nxrko gap [Moles/Vol]Serum or plasma anion gap determination8-[address] [facility] HospitalVit B12 SerPl-mCncon 60-52-2227Nsyywpmgo (Vitamin B12) [Mass/Vol]700 pg/zGRlqtus907-5705BefgupjnhProMedica Flower Hospital on above:Order Comment: Specimen Type: BLOOD SPECIMENOrdering Facility: [facility] Address:[address] [place] [address] Performed By: #### 2276-4, 2132-9, 63466-5, 2284-8 ####[facility] LABTAMMY [id number] [address] STATES OF [facility] MEDICAL CENTERCNPNon 26-18-2265JQBQGigylldvu (HEMASA) JEANNETTE HURTADO ([id number]) 1965 F Date Time Provider Department 08/20/24 MAITE MERRITTASA During your visit today, we recorded the following information about you: Katina Howe MA 08/20/2024 11:28 AM Signed Patient coming in Tuesday08/29/24 for follow up with labs. Please add lab orders. Thanks. Katina Howe MA Allergies As of Date: 08/20/2024 Noted Allergy Reaction COMPAZINE (PROCHLORPERAZINE EDISY*01/13/2005 LATEX 01/21/2023 16 - Unknown Date Reviewed: 07/26/2024 Reviewed by: Maite Merritt, PA-C - Fully Assessed Reason for Visit: Lab Orders [1688] Primary Visit Diagnosis:Iron deficiency anemia secondary to inadequate dietary iron intake [D50.8] Other Visit Diagnoses:Megaloblastic anemia due to vitamin B12 deficiency [D53.1] Folate deficiency [E53.8] Malaise and fatigue [R53.81, R53.83] Order(s):LACTATE DEHYDROGENASE [SQLD6] Order #: [id number] FUTURE COMPLETE BLOOD COUNT AND DIFFERENTIAL [SQCBCDIF] Order #: [id number] FUTURE COMPREHENSIVE METABOLIC PANEL [SQCMP] Order #: [id number] FUTURE FERRITIN [SQFERR] Order #: [id number] FUTURE IRON AND TIBC [SQIRON] Order #: [id number] FUTURE RETICULOCYTE COUNT [SQRETIC] Order #: [id number] FUTURE VITAMIN B12 [SQB12] Order #: [id number] FUTURE FOLATE, SERUM [SQSERFOL] Order #: [id number] FUTURE Prescriptions as of 08/20/2024 - solifenacin 10 mg tablet Take 1 tablet by mouth once daily. - PLAVIX 75 mg tablet Take 75 [...] Sarmiento MA Problem List As Of Date 08/20/2024 Noted Resolved HIDRADENITIS [L73.2] 01/13/2005 Iron deficiency anemia secondary to inadequate *02/07/2023 Encounter Status:Closed by DAVY MARTINEZ on 08/20/24[facility] 28-34-5580SPQZIHLVedhc Visit (HEMASA) JEANNETTE HURTADO ([id number]) 1965 F Date Time Provider Department 07/31/24 2:30 PM MERVIN NURSE EDMUND CARRERO During your visit today, we recorded the following information about you: Temperature Pulse Respiration 97.8 degrees 67/minute 18/minute Referring Provider: JOSE ROSE [[id number]] Allergies As of Date: 07/31/2024 Noted Allergy Reaction COMPAZINE (PROCHLORPERAZINE EDISY*01/13/2005 LATEX 01/21/2023 16 - Unknown Date Reviewed: 07/26/2024 Reviewed by: Maite Merritt, PAPaolaC - Fully Assessed Primary Visit Diagnosis:Iron deficiency anemia secondary to inadequate dietary iron intake [D50.8] Order(s):[] cyanocobalamin 1,000 mcg injectionDisp: Rfl: Prescriptions as of 07/31/2024 - solifenacin 10 mg tablet Take 1 tablet by mouth once daily. - PLAVIX 75 mg tablet Take 75 [...] Sarmiento MA Problem List As Of Date 07/31/2024 Noted Resolved HIDRADENITIS [L73.2] 01/13/2005 Iron deficiency anemia secondary to inadequate *02/07/2023 Prescriptions ordered this encounter Disp Refills Start End CYANOCOBALAMIN (VIT B-12) 1,000 MCG/* 07/31/2024 07/31/2024 Route: INTRAMUSCULA Encounter Status:Closed by PHILLIP BERNARD on 07/31/24NoSt. Francis HospitalUrinalysis macro (dipstick) panel (U)on 25-30-9528Ltewddyyy, UANegative Negative - 4(70) +++ mg/dLNOMS HealthcareBlood, UANegativeNegative - 50 Tima/mcL NOMS HealthcareClarity, UAClearNOMS HealthcareColor, UALight YellowNOMS HealthcareGlucose, UANegativeNegative - 1999(110) ++++ mg/dLNOMS Healthcare Interpretation and review of laboratory resultsNormalNOMS HealthcareKetones, UA NegativeNegative - 160(16) ++++ mg/dLNOMS HealthcareLeukocytes, UAManyNegative - 500+++ Delvin/mcLNOMS HealthcareNitrite, UANegativeNegative - PositiveNOMS HealthcarepH, UA6.55 - 9NOMS HealthcareProtein, UATraceNegative - 2000(20) ++++ mg/dLNOMS HealthcareSpec Grav, UA1.0051 - 1.03NOMS HealthcareUrobilinogen, UA1.0 0.2 - 12 mg/dLNOMS HealthcareNOMS HealthcareCNNURSEon 17-93-2453HXYQBRGByogl Visit (HEMASA) JEANNETTE HURTADO ([id number]) 1965 F Date Time Provider Department 07/03/24 2:30 PM MERVIN NURSE EDMUND NAILA ALISE During your visit today, we recorded the following information about you: Temperature Pulse Respiration Blood pressure 97.8 degrees 85/minute 16/minute 131/83 Weight Height 93 kg 1.676 m Dangelo Umanzor MA 07/03/2024 2:39 PM Signed Patient Identification confirmed: yes. Injection given and documented on JUL per provider order. Dangelo Umanzor MA Referring Provider: JOSE ROSE [[id number]] Allergies As of Date: 07/03/2024 Noted Allergy Reaction COMPAZINE (PROCHLORPERAZINE EDISY*01/13/2005 LATEX 01/21/2023 16 - Unknown Date Reviewed: 06/26/2024 Reviewed by: Maite Merritt, PARenato - Fully Assessed Primary Visit Diagnosis:Iron deficiency anemia secondary to inadequate dietary iron intake [D50.8] Order(s):[] cyanocobalamin 1,000 mcg injectionDisp: Rfl: Prescriptions as of 07/03/2024 - solifenacin 10 mg tablet Take 1 tablet by mouth once daily. - PLAVIX 75 mg tablet Take 75 [...] Sarmiento MA Problem List As Of Date 07/03/2024 Noted Resolved HIDRADENITIS [L73.2] 01/13/2005 Iron deficiency anemia secondary to inadequate *02/07/2023 Prescriptions ordered this encounter Disp Refills Start End CYANOCOBALAMIN (VIT B-12) 1,000 MCG/* 07/03/2024 07/03/2024 Route: INTRAMUSCULA Encounter Status:Closed by DANGELO UMANZOR on 07/03/24NormalCOhio Valley Surgical HospitalAbsolute reticulocyte counton 25-64-1480Gbhwpdhjdxfhu (Bld) [#/Vol] Absolute reticulocyte count0.018-0.100[facility] HospitalBasophils Auto (Bld) [#/Vol]on 99-94-4992Yydeaqyxo (Bld) [#/Vol]Automated basophil count <0.11[facility] HospitalBasophils/100 WBC Auto (Bld)on 06-06-2024 Basophils/100 WBC (Bld)Automated basophil %[facility] Blood manual differential comment interpretation narrativeon 32-87-7231Dzhyio differential comment Alec (Bld) [Interp]Blood manual differential comment interpretation narrativeMercy Health St. Charles HospitalCBC W Auto Differential panel (Bld)on 76-64-9719Ixhlcllhk (Bld) [#/Vol]0.10 10*3/uLNormal<0.11CProMedica Flower Hospital on above:Order Comment: Specimen Type: BLOOD SPECIMENOrdering Facility: [facility] Address:[address]NO [place], [place] [address]Ltxssktyu By: #### 07687-0, 92568-8 ####[facility] LABCLIA [id number] [place] [address] Basophils/100 WBC (Bld)0.6 %NormalNorwalk Memorial Hospital on above: Order Comment: Specimen Type: BLOOD SPECIMENOrdering Facility: [facility] Address:[address] [place], [place] [address]Performed By: #### 01687- 8, 56913-5 ####[facility] LABCLIA [id number] [place], [place] [address]Lpktzxnyqsze cell count method Nom (Bld)AutoNormal [facility] on above:Order Comment: Specimen Type: BLOOD SPECIMENOrdering Facility: [facility] Address:[address] [place], [place] [address]Performed By: #### 26923-6, 53283-3 ####[facility] LABCLIA [id number] [place] [address] Eosinophils (Bld) [#/Vol]0.60 10*3/uLHigh<0.46[facility] on above:Order Comment: Specimen Type: BLOOD SPECIMENOrdering Facility: [facility] Address:[address] [place] [address] Performed By: #### 46432-3, 34925-4 ####[facility] LABCLIA [id number] [place], [place] [address]Xpifgoarhog/100 WBC (Bld)3.8 %NormalNorwalk Memorial Hospital on above:Order Comment: Specimen Type: BLOOD SPECIMENOrdering Facility: [facility] Address:[address] [place], [place] [address]Performed By: #### 62594-8, 31239-3 ####[facility] LABCLIA [id number] [place], [place] [address]Qrgzlcpuzcn distribution width (RBC) [Ratio]13.4 %Normal 11.5-15.0[facility] on above:Order Comment: Specimen Type: BLOOD SPECIMENOrdering Facility: [facility] Address:[address] [place], [place] [address]Performed By: #### 48460-9, 93375-5 ####[facility] LABCLIA [id number] [place], [place] [address]Toqbieaoua (Bld) [Volume fraction]42.3 %Lehcgb09.0-46.0 [facility] on above:Order Comment: Specimen Type: BLOOD SPECIMENOrdering Facility: [facility] Address:[address] [place], [place] [address]Performed By: #### 92467-5, 49139-5 ####[facility] LABIA [id number] [place] [address] Hemoglobin (Bld) [Mass/Vol]14.3 g/fBWuyqhq91.5-15.5COhio Valley Surgical Hospital Comment on above:Order Comment: Specimen Type: BLOOD SPECIMENOrdering Facility: [facility] Address:[address] [place] [address] Performed By: #### 35730-3, 36145-4 ####[facility] LABIA [id number] [place], [place] [address]Ompcghbz granulocytes (Bld) [#/Vol]0.09 10*3/uLNormal<0.10[facility] on above: Order Comment: Specimen Type: BLOOD SPECIMENOrdering Facility: [facility] Address:[address] [place], [place] [address]Performed By: #### 10407- 8, 75477-2 ####[facility] LABIA [id number] [place], [place] [address]Npxjdcek granulocytes/100 WBC (Bld)0.6 %Normal [facility] on above:Order Comment: Specimen Type: BLOOD SPECIMENOrdering Facility: [facility] Address:[address] [place], [place] [address]Performed By: #### 12476-3, 17221-7 ####[facility] LABIA [id number] [place] [address] Lymphocytes (Bld) [#/Vol]4.10 10*3/uLHigh1.00-4.00[facility] Comment on above:Order Comment: Specimen Type: BLOOD SPECIMENOrdering Facility: [facility] Address:[address] [place] [address] Performed By: #### 35516-5, 63507-3 ####[facility] LABCLIA [id number] [place], [place] [address]Dyjbiokxmpo/100 WBC (Bld)25.8 %NormalNorwalk Memorial Hospital on above:Order Comment: Specimen Type: BLOOD SPECIMENOrdering Facility: [facility] Address:[address] [place], [place] [address]Performed By: #### 70192-5, 43412-0 ####[facility] LABCLIA [id number] [place], [place] [address]DDJ (RBC) [Entitic mass]31.9 vpYkrzwy69.0-34.0[facility] Hospitalment on above:Order Comment: Specimen Type: BLOOD SPECIMENOrdering Facility: [facility] Address:[address] [place], [place] [address]Performed By: #### 11064-9, 25675-2 ####[facility] LABCLIA [id number] [place], [place] [address]MEOM (RBC) [Mass/Vol]33.8 g/oNByincp85.5-36.0[facility] on above:Order Comment: Specimen Type: BLOOD SPECIMENOrdering Facility: [facility] Address:[address] [place], [place] [address]Performed By: #### 36546-3, 88862-4 ####[facility] LABCLIA [id number] [place], [place] [address]OWV (RBC) [Entitic vol]94.4 fLNormal 80.0-100.0[facility] on above:Order Comment: Specimen Type: BLOOD SPECIMENOrdering Facility: [facility] Address:[address] [place], [place] [address]Performed By: #### 67895-7, 85131-4 ####[facility] LABCLIA [id number] [place], [place] [address]Bchueabul (Bld) [#/Vol]0.98 10*3/uLHigh<0.87[facility] on above:Order Comment: Specimen Type: BLOOD SPECIMENOrdering Facility: [facility] Address:[address] [place], [place] [address]Performed By: #### 01827-9, 03247-7 ####[facility] LABCLIA [id number] [place] [address] Monocytes/100 WBC (Bld)6.2 %NormalNorwalk Memorial Hospital on above: Order Comment: Specimen Type: BLOOD SPECIMENOrdering Facility: [facility] Address:[address] [place], [place] [address]Performed By: #### 58293- 8, 15240-6 ####[facility] LABCLIA [id number] [place], [place] [address]Fxbhbzhxkzi (Bld) [#/Vol]10.02 10*3/uLHigh1.45-7.50 [facility] on above:Order Comment: Specimen Type: BLOOD SPECIMENOrdering Facility: [facility] Address:[address] [place], [place] [address]Performed By: #### 51558-2, 53125-8 ####[facility] LABCLIA [id number] [place] [address] Neutrophils/100 WBC (Bld)63.0 %NormalNorwalk Memorial Hospital on above: Order Comment: Specimen Type: BLOOD SPECIMENOrdering Facility: [facility] Address:[address] [place], [place] [address]Performed By: #### 56268- 8, 08272-2 ####[facility] LABCLIA [id number] [place], [place] [address]Wldnqqvrc RBC (Bld) [#/Vol]10*3/uLNormal<0.01 [facility] on above:Order Comment: Specimen Type: BLOOD SPECIMENOrdering Facility: [facility] Address:[address] [place], [place] [address]Performed By: #### 13756-6, 90146-7 ####[facility] LABCLIA [id number] [place] [address] Nucleated RBC/100 WBC (Bld) [Ratio]0.0 /100 WBCNormalCOhio Valley Surgical Hospital Comment on above:Order Comment: Specimen Type: BLOOD SPECIMENOrdering Facility: [facility] Address:[address] [place] [address] Performed By: #### 28501-5, 14569-3 ####[facility] LABCLIA [id number] [place], [place] [address]Hhqqvzul mean volume (Bld) [Entitic vol]9.4 fLNormal9.0-12.7CProMedica Flower Hospital on above:Order Comment: Specimen Type: BLOOD SPECIMENOrdering Facility: [facility] Address:[address] [place], [place] [address]Performed By: #### 28206-5, 44691-0 ####[facility] LABCLIA [id number] [place], [place] [address]Qquaifkjk (Bld) [#/Vol]288 10*3/uLNormal 150-400[facility] on above:Order Comment: Specimen Type: BLOOD SPECIMENOrdering Facility: [facility] Address:[address] [place], [place] [address]Performed By: #### 52074-0, 43351-9 ####[facility] LABCLIA [id number] [place], [place] [address]IBL (Bld) [#/Vol]4.48 10*6/uLNormal3.90-5.20[facility] Comment on above:Order Comment: Specimen Type: BLOOD SPECIMENOrdering Facility: [facility] Address:[address] [place] [address] Performed By: #### 60915-5, 11845-6 ####[facility] LABCLIA [id number] [place], [place] [address]CNQ (Bld) [#/Vol]15.89 10*3/uLHigh3.70-11.00[facility] Memorial HospitalComment on above:Order Comment: Specimen Type: BLOOD SPECIMENOrdering Facility: [facility] Address:[address] [place], [place] [address]Qtmlmjirj By: #### 39872-5, 96025-7 ####[facility] LABCLIA [id number] [place], [place] [address]ASGZHQVyc 38-40-9352JPWRSXPTvkwh Visit (HEMASA) JEANNETTE HURTADO ([id number]) 1965 F Date Time Provider Department 06/06/24 3:00 PM MERVIN NURSE EDMUND YOO HEMLEXI During your visit today, we recorded the following information about you: Mariela Sarmiento MA 06/06/2024 2:57 PM Signed Patient Identification confirmed: yes. Injection given and documented on JUL per provider order. Mariela Sarmiento MA Referring Provider: JOSE ROSE [[id number]] Allergies As of Date: 06/06/2024 Noted Allergy Reaction COMPAZINE (PROCHLORPERAZINE EDISY*01/13/2005 LATEX 01/21/2023 16 - Unknown Date Reviewed: 06/06/2024 Reviewed by: Maite Merritt, PAPaolaC - Fully Assessed Primary Visit Diagnosis:Iron deficiency anemia secondary to inadequate dietary iron intake [D50.8] Order(s):[facility] [[id number]] Order #: [id number]: 1 STANDING [] cyanocobalamin 1,000 mcg injectionDisp: Rfl: Prescriptions as of 06/06/2024 - solifenacin 10 mg tablet Take 1 tablet by mouth once daily. - PLAVIX 75 mg tablet Take 75 [...] Sarmiento MA Problem List As Of Date 06/06/2024 Noted Resolved HIDRADENITIS [L73.2] 01/13/2005 Iron deficiency anemia secondary to inadequate *02/07/2023 Prescriptions ordered this encounter Disp Refills Start End CYANOCOBALAMIN (VIT B-12) 1,000 MCG/* 06/06/2024 06/06/2024 Route: INTRAMUSCULA Encounter Status:Closed by MARIELA SARMIENTO on 06/06/24NoSt. Francis HospitalCNOVSPon 92-27-1977XIRNAOPhsnq (SP) Office (HEMASA) JEANNETTE HURTADO ([id number]) 1965 F Date Time Provider Department 06/06/24 2:30 PM MAITE MERRITT During your visit today, we recorded the following information about you: Temperature Pulse Respiration Blood pressure 97.3 degrees 83/minute 16/minute 144/84 Weight Height 93 kg 1.676 m Maite Merritt PA-C 06/06/2024 3:00 PM Signed NAME: Jeannette Hurtado CLINIC NO.: [id number] DATE OF SERVICE: June 06, 2024 (Shaina) Some elements in this clinic note that are critical to medical decision making have been carefully reviewed and included from a prior clinic note dated: March 14, 2024 (Shaina) Referring Provider: Dr. Klaudia Gomez Additional Clinicians [...] test and now has two coronary stents. Her CBC today shows mild elevated of neutrophils and white blood cells, likely reactive. Will monitor and if increase, will do appropriate work up. Her hemoglobin remains stable and her symptoms have improved after IV iron in March 2024. She will continue her folic acid and get B12 today and monthly. She will return in 12 weeks for labs and follow up. If her iron studies from today indicate a need for additional iron, we will arrange that. If the continues to have falls, I recommended she see her PCP - HPI: CASE HISTORY: Reverse Chronological Order 01/05/2023 - CBC 9.2 > 11.2 / 35.6 < 277 11/12/2022 - Colonoscopy is negative. Recommended colonoscopy 10 years. Updated Visit, June 06, 2024: Patient here for follow up. Received venofer 200 x 5 doses in March 2024. Her energy level has been better. Here for follow up. Remains on folic acid and gets her B12 injections monthly. She has fallen a few times since her last visit. She lost her balance. No dizziness. No loss of consciousness. No headaches. Some blurred vision at times. She is on a new medicine, solifenacin for urinary incontinence for 2 months and it is helping. Updated Visit, March 14, 2024: Patient is [...] replacement / [facility]. Updated Visit, July 11, 2023: Jeannette [...] female who presents on consultation for anemia. Hemo (more content not included)...NormalGuernsey Memorial HospitalComprehensive metabolic 2000 panelon 56-81-8637Igeazgz [Mass/Vol]4.7 g/dLNormal3.9-4.9CProMedica Flower Hospital on above:Order Comment: Specimen Type: BLOOD SPECIMENOrdering Facility: [facility] Address:[address] [place], [place] [address]Performed By: #### 14867-8, ####[facility] LABCLIA [id number] [place], [place] [address]DUK [Catalytic activity/Vol]145 U/TSiig21-316CumphqbkqNorwalk Memorial Hospital on above:Order Comment: Specimen Type: BLOOD SPECIMENOrdering Facility: [facility] Address:[address] [id number] By: #### 59576- 8, 0 ####[facility] LABCLIA [id number] [place], [place] [address]DDQ [Catalytic activity/Vol]27 U/LNormal7-38 [facility] on above:Order Comment: Specimen Type: BLOOD SPECIMENOrdering Facility: [facility] Address:[address] [place], [place] [address]Performed By: #### 69376-0, 2531-0 ####[facility] LABCLIA [id number] [place], [place] [address]Lpzpg gap [Moles/Vol]12 mmol/LNormal8-15[facility] on above: Order Comment: Specimen Type: BLOOD SPECIMENOrdering Facility: [facility] Address:[address] [place], [place] [address]Performed By: #### 44677- 8, 2531-0 ####[facility] LABCLIA [id number] [place], [place] [address]OTS [Catalytic activity/Vol]28 U/JHeozyb00-69 [facility] on above:Order Comment: Specimen Type: BLOOD SPECIMENOrdering Facility: [facility] Address:[address] [place], [place] [address]Performed By: #### 64657-8, 2531-0 ####[facility] LABCLIA [id number] [place] [address] Bilirubin [Mass/Vol]0.5 mg/dLNormal0.2-1.3CProMedica Flower Hospital on above:Order Comment: Specimen Type: BLOOD SPECIMENOrdering Facility: [facility] Address:[address] [place], [place] [address]Performed By: #### 74147-2, 2532-0 ####[facility] LABCLIA [id number] [place], [place] [address]Ehuqsom [Mass/Vol]10.0 mg/dLNormal8.5-10.2 [facility] on above:Order Comment: Specimen Type: BLOOD SPECIMENOrdering Facility: [facility] Address:[address] [place], [place] [address]Performed By: #### 99376-5, 2532-0 ####[facility] LABCLIA [id number] [place], [place] [address]Brkjnvuu [Moles/Vol]98 mmol/MNkurmj99-406FxtflkhlzNorwalk Memorial Hospital on above: Order Comment: Specimen Type: BLOOD SPECIMENOrdering Facility: [facility] Address:[address] [place], [place] [address]Performed By: #### 96232- 8, 2532-0 ####[facility] LABCLIA [id number] [place], [place] [address]QI4 [Moles/Vol]27 mmol/VWqpexe31-44GcoceddcrNorwalk Memorial Hospital on above:Order Comment: Specimen Type: BLOOD SPECIMENOrdering Facility: [facility] Address:[address] [place], [place] [address]Performed By: #### 37456-4, 2531-0 ####[facility] LABCLIA [id number] [place], [place] [address]Jngwagnwvo [Mass/Vol] 0.92 mg/dLNormal0.58-0.96[facility] on above:Order Comment: Specimen Type: BLOOD SPECIMENOrdering Facility: [facility] Address:[address] [place], [place] [address]Performed By: #### 43905- 8, 2531-0 ####[facility] LABCLIA [id number] [place], [place] [address]Ucwtukbfuw and Glomerular filtration rate.predicted panel (S/P/Bld)71 mL/min/1.73m???Normal>=60[facility] on above:Order Comment: Specimen Type: BLOOD SPECIMENOrdering Facility: [facility] Address:[address] [place], [place] [address]Result Comment: Estimated Glomerular Filtration Rate (eGFR) is calculated using the 2020 CKD-EPI creatinine equation. This equation utilizes serum creatinine, sex, and age as parameters. The creatinine assay has traceable calibration to isotope dilution- mass spectrometry. Refer to KDIGO guidelines for clinical interpretation. In patients with unstable renal function, e.g. those with acute kidney injury, the eGFR may not accurately reflect actual GFR.Performed By: #### 54792-0, ####[facility] LABCLIA [id number] [place], [place] [address]Iimxuhv [Mass/Vol]132 mg/wSOmrw91-62XyyfslemaNorwalk Memorial Hospital on above:Order Comment: Specimen Type: BLOOD SPECIMENOrdering Facility: [facility] Address:[address] [place] [address]Usuznw Comment: The [place] Diabetes Association (ADA) provides guidance for cutoff values for fasting glucose and random glucose. The ADA defines fasting as no caloric intake for at least 8 hours. Fasting plasma glucose results between 100 to 125 mg/dL indicate increased risk for diabetes (prediab etes). Fasting plasma glucose results greater than or [...] Standards of Medical Care in Diabetes 2016, [place] [employer] Association. Diabetes Care. 2016.39(Suppl 1).Performed By: #### 82018-6, ####[facility] LABCLIA [id number] [place], [place] [address]Wamipudce [Moles/Vol]4.0 mmol/LNormal3.7-5.1CProMedica Flower Hospital on above:Order Comment: Specimen Type: BLOOD SPECIMENOrdering Facility: [facility] Address:[address] [place], [place] [address]Budsmagha By: #### 41362-4, ####[facility] LABCLIA [id number] [place], [place] [address]Zinmuoe [Mass/Vol]7.3 g/dLNormal6.3-8.0[facility] ClevelandComment on above:Order Comment: Specimen Type: BLOOD SPECIMENOrdering Facility: [facility] Address:[address] [id number] By: #### 91789- 8, 2532-0 ####[facility] LABCLIA [id number] [place], [place] [address]Asbppr [Moles/Vol]137 mmol/AUwacya912-445XexcboixzGuernsey Memorial HospitalComment on above:Order Comment: Specimen Type: BLOOD SPECIMENOrdering Facility: [facility] Address:[address] [place], [place] [address]Performed By: #### 61961-7, 2532-0 ####[facility] LABCLIA [id number] [place], [place] [address]Ayrq nitrogen [Mass/Vol]24 mg/dLHigh7-21[facility] on above: Order Comment: Specimen Type: BLOOD SPECIMENOrdering Facility: [facility] Address:[address] [place], [place] [address]Performed By: #### 99914- 8, 2-0 ####[facility] LABCLIA [id number] [place], [place] [address]Uxgnuwktukn/100 WBC Auto (Bld)on 06-06-2024 Eosinophils/100 WBC (Bld)Automated eosinophil %[facility] Erythrocyte distribution width Auto (RBC) [Ratio]on 95-12-7174Qugvfycbdwf distribution width (RBC) [Ratio]Erythrocyte distribution width [Ratio] by Automated count11.5-15.0[facility] Charles HospitalFerritin SerPl-mCncon 41-64-6210Qetqaqfp [Mass/Vol]453.0 ng/mWTzxk71.7-205.1COhio Valley Surgical Hospital Comment on above:Order Comment: Specimen Type: BLOOD SPECIMENOrdering Facility: [facility] Address:[address] [place] [address] Performed By: #### 54463-7, 2276-4, 2132-9, 2284-8 ####[facility] LABCLIA [id number] [place] [address] [place] OF AMERICAFolate SerPl-mCncon 10-96-5159Xenump [Mass/Vol]ng/mLNormal>4.7 [facility] on above:Order Comment: Specimen Type: BLOOD SPECIMENOrdering Facility: [facility] Address:[address] [place], [place] [address]Result Comment: A result of > 20 ng/mL is not necessarily indicative of a pathologic or treatable condition: it reflects a limitation of the test methodology. Assay reference range: 4.8 to 24.2 ng/mL. Suitable for detection of folate deficiency. Reference: Folate III (Folate III) [package insert V 1.0 Austrian]. [employer], [place], [place]: March 2015.Performed By: #### 27145-9, 2275-08, 2132-01, 2283-12 ####[facility] LABIA [id number] [place] [address] [place] OF AMERICAHematocrit Auto (Bld) [Volume fraction]on 34-68-6355Usvuthpopm (Bld) [Volume fraction]Hematocrit [Volume Fraction] of Blood by Automated count36.0-46.0[facility] Hemoglobin [Mass/volume] in Bloodon 24-66-3160Mfqornzeqs (Bld) [Mass/Vol] Hemoglobin [Mass/volume] in Blood11.5-15.5FMercy Health St. Elizabeth Boardman HospitalIron and Iron binding capacity panelon 94-35-0733Rmrg [Mass/Vol]40 ug/oAEzf96-939 [facility] on above:Order Comment: Specimen Type: BLOOD SPECIMENOrdering Facility: [facility] Address:[address] [place], [place] [address]Performed By: #### 22861-9, 2275-08, 2132-01, 2283-12 ####[facility] LABIA [id number] [place] [address] [place] AMERICAIron binding capacity [Mass/Vol] 337 ug/mXTkpxbg583-207GrhajfvdcNorwalk Memorial Hospital on above:Order Comment: Specimen Type: BLOOD SPECIMENOrdering Facility: [facility] Address:[address] [place], [place] [address]Performed By: #### 79922-2, 2275-08, 2132-01, 2283-12 ####[facility] LABCLIA [id number] [address] [address] [place] OF AMERICAIron/TIBC [Molar ratio]11.9 %Low15.0-57.0[facility] on above:Order Comment: Specimen Type: BLOOD SPECIMENOrdering Facility: [facility] Address:[address] [place], [place] [address]Performed By: #### 61282- 8, 2275-08, 2132-01, 2283-12 ####[facility] LABCLIA [id number] [address] [place] AMERICAIron binding capacity [Mass/volume] in Serum or Plasmaon 98-93-9157Wqwd binding capacity [Mass/Vol]Iron binding capacity [Mass/volume] in Serum or Vflqru004-[address] [facility] HospitalIron saturation [Mass Fraction] in Serum or Plasmaon 42-25-7966Ttpu saturation [Mass fraction]Iron saturation [Mass Fraction] in Serum or HfsumjLwb38.0-57.0[facility] HospitalLD SerPl-cCncon 10-72-9674SLG [Catalytic activity/Vol]146 U/NXromss998-572VlsjkuqrnNorwalk Memorial Hospital on above:Order Comment: Specimen Type: BLOOD SPECIMENOrdering Facility: [facility] Address:[address] [place], [place] [address]Result Comment: Hemolysis present. The origin of the hemolysis, in vitro versus an in vivo hemolytic process, cannot be distinguished via this assay alone. In vitro hemolysis may lead to non-physiological (spurious) elevation in lactate dehydrogenase (LDH) results. The result should be interpreted in context of the clinical setting and other test results. Suggest reorder as clinically indicated.Performed By: #### 63678-5, 2532-0 ####[facility] LABCLIA [id number] [place], [place] [address]Zfubnlxjeh - Chemistry and Chemistry - challengeon 48-73-9364Fydsxpc [Mass/Vol]4.7 g/dL3.9-4.9[facility] HospitalALP [Catalytic activity/Vol]145 U/LJvmc58-038XwkppeswwMercy Health St. Charles HospitalALT [Catalytic activity/Vol]27 U/L7-38[facility] HospitalAST [Catalytic activity/Vol]28 U/P64-32AqabdubxzMercy Health St. Charles HospitalBilirubin [Mass/Vol]0.5 mg/dL0.2-1.3FMercy Health St. Elizabeth Boardman HospitalCalcium [Mass/Vol] 10.0 mg/dL8.5-10.2FMercy Health St. Elizabeth Boardman HospitalChloride [Moles/Vol]98 mmol/L 98-107[facility] HospitalCO2 [Moles/Vol]27 mmol/P28-56HwaxrxagwMercy Health St. Charles HospitalCobalamin (Vitamin B12) [Mass/Vol]809 pg/gI351-[address] [facility] HospitalCreatinine [Mass/Vol]0.92 mg/dL0.58-0.[address] [facility] HospitalFerritin [Mass/Vol]453.0 ng/zMFple79.7-205.[address] [facility] HospitalGlucose [Mass/Vol]132 mg/gIYqjz57-96YxpfzkczhMercy Health St. Charles HospitalComment on above:The [place] Diabetes Association (ADA) provides guidance for cutoff values for fasting glucose andrandom glucose. The ADA defines fasting as no caloric intake for at least 8 hours. Fasting plasma gl ucose results between 100 to 125 mg/dL indicate increased risk for diabetes (prediabetes).Fasting plasma glucose results greater than or equal to 126 mg/dL meet the criteria for diagnosis of diabetes. In the absence of unequivocal hyperglycemia, results should be confirmed by repeat testing. In a patient with classic symptoms of hyperglycemia or hyperglycemic crisis, random plasma glucose resultsgreater than or equal to 200 mg/dL meet the criteria for diagnosis of diabetes.Reference: Standardsof Medical Care in Diabetes 2016, [place] Diabetes Association. Diabetes Care. 2016.39(Suppl 1).Iron [Mass/Vol]40 ug/zPBdi68-[address] [facility] HospitalLDH [Catalytic activity/Vol]146 U/Z424-[address] Charles HospitalComment on above:Hemolysis present. The origin of the hemolysis, in vitro versus an in vivo hemolytic process, cannot be distinguished via this assay alone. In vitro hemolysis may lead to non- physiological (spurious)elevation in lactate dehydrogenase (LDH) results. The result should be interpreted in context of the clinical setting and other test results. Suggest reorder as clinically indicated.Potassium [Moles/Vol]4.0 mmol/L 3.7-5.1FMercy Health Kings Mills Hospitalodium [Moles/Vol]137 mmol/Q806-[address] [facility] HospitalUrea nitrogen [Mass/Vol]24 mg/dLHigh7-[address] [facility] HospitalLaboratory - Hematology and Cell countson 22-91-1091Zoytebulvdd (Bld) [#/Vol]0.60 10*3/uLHigh<0.46[facility] HospitalImmature granulocytes (Bld) [#/Vol]0.09 10*3/uL<0.10[facility] HospitalImtxture granulocytes/100 WBC (Bld)0.6 %[facility] HospitalLeukocytes [#/volume] corrected for nucleated erythrocytes in Blood by Automated counon 69-29-6465DTD corrected for nucl RBC Auto (Bld) [#/Vol]Leukocytes [#/volume] corrected for nucleated erythrocytes in Blood by Automated counHigh3.70-11.00[facility] Lymphocytes Auto (Bld) [#/Vol]on 27-62-5593Afyarvstucp (Bld) [#/Vol]Lymphocytes [#/volume] in Blood by Automated countHigh1.00-4.00[facility] HospitalLymphocytes/100 WBC Auto (Bld)on 78-13-3601Kfvqfaghoxu/100 WBC (Bld) Lymphocytes/100 leukocytes in Blood by Automated countOhio State University Wexner Medical CenterH Auto (RBC) [Entitic mass]on 69-40-2088JJX (RBC) [Entitic mass]MCH [Entitic mass] by Automated count26.0-34.0[facility] HospitalMCHC Auto (RBC) [Mass/Vol]on 26-63-3259WIAT (RBC) [Mass/Vol]MCHC [Mass/volume] by Automated count30.5-36.0[facility] HospitalMCV Auto (RBC) [Entitic vol]on 27-05-0658JVI (RBC) [Entitic vol]MCV [Entitic volume] by Automated count 80.0-100.0[facility] HospitalMonocytes Auto (Bld) [#/Vol]on 10-19-7043Xjsvsciff (Bld) [#/Vol]Automated blood monocyte countHigh<0.[address] [facility] HospitalMonocytes/100 WBC Auto (Bld)on 06-06-2024 Monocytes/100 WBC (Bld)Automated monocyte %[facility] Neutrophils Auto (Bld) [#/Vol]on 13-98-2463Bjjqbtaiypu (Bld) [#/Vol]Neutrophils [#/volume] in Blood by Automated countHigh1.45-7.50[facility] HospitalNeutrophils/100 WBC Auto (Bld)on 08-75-3543Vwyxkgcyrnv/100 WBC (Bld) Automated neutrophil %[facility] HospitalNo Panel Informationon 24-32-5162Drpeoeayt GFR (CKD-EPI)71 mL/min/1.73m???>=60[facility] HospitalComment on above:Estimated Glomerular Filtration Rate (eGFR) is calculated using the 2020 CKD-EPI creatinine equation. This equation utilizes serum creatinine, sex, and age as parameters. The creatinine assay has traceable calibration to isotope dilution-mass spectrometry. Refer to KDIGO guidelines for clinical interpretation. In patients with unstable renal function, e.g. those with acute kidney injury, the eGFRmay not accurately reflect actual GFR. Folate>20.0 ng/mL>4.7FMercy Health St. Elizabeth Boardman HospitalComment on above:A result of > 20 ng/mL is not necessarily indicative of a pathologic or treatable condition: it reflects a limitation of the test methodology.Assay reference range: 4.8 to 24.2 ng/mL. Suitable fordetection of folate deficiency.Reference:Folate III (Folate III) [package insert V 1.0 Austrian]. [employer], [place], [place]: March 2015.Nucleated RBC Auto (Bld) [#/Vol] on 38-74-1149Wjffcaefj RBC (Bld) [#/Vol]Nucleated erythrocytes [#/volume] in Blood by Automated count<0.01[facility] HospitalNucleated erythrocytes [Presence] in Blood by Automated counton 38-79-8064Ovrldjtrx RBC Auto Ql (Bld)Nucleated erythrocytes [Presence] in Blood by Automated count [facility] HospitalPlatelet mean volume Auto (Bld) [Entitic vol]on 56-26-9758Kxbjkxhs mean volume (Bld) [Entitic vol]Platelet mean volume [Entitic volume] in Blood by Automated count9.0-12.7FMercy Health St. Elizabeth Boardman Hospital Platelets Auto (Bld) [#/Vol]on 14-00-0873Mvdjapfqy (Bld) [#/Vol]Platelets [#/volume] in Blood by Automated griid155-813WzjdbfehiMercy Health St. Charles Hospital Protein [Mass/volume] in Serum or Plasmaon 82-94-5977Iuirvjo [Mass/Vol]Protein [Mass/volume] in Serum or Plasma6.3-8.0[facility] HospitalRBC Auto (Bld) [#/Vol]on 26-30-8076OTH (Bld) [#/Vol]Erythrocytes [#/volume] in Blood by Automated count3.90-5.20[facility] HospitalRetics #on 06-06-2024 Reticulocytes (Bld) [#/Vol]0.04105 10*3/uLNormal0.018-0.100[facility] HospitalComselect [facility] on above:Order Comment: Specimen Type: BLOOD SPECIMENOrdering Facility: [facility] Address:[address] [place] [address]Ldtdysvon By: #### 13027-5, 61715-2 ####[facility] LABIA [id number] [place], [place] [address]Jutsqjrzkrofc (Bld) [#/Vol]on 37-95-4374Hqdahgcubrqoy/100 RBC (Bld)1.9 %Normal0.4-2.0[facility] on above:Order Comment: Specimen Type: BLOOD SPECIMENOrdering Facility: [facility] Address:[address] [place] [address]Qlrajqpfh By: #### 95635-0, 84139-4 ####[facility] LABCLIA [id number] [place] [address] Reticulocytes/100 RBC Auto (Bld)on 33-97-8979Cpghujljytvie/100 RBC (Bld) Reticulocyte % auto0.4-2.0Flower Hospitalerum or plasma anion gap determinationon 85-45-4634Doweo gap [Moles/Vol]Serum or plasma anion gap determination8-15[facility] Charles HospitalVit B12 SerPl-mCncon 16-44-2264Uznrutlfh (Vitamin B12) [Mass/Vol]809 pg/cRYbbsav800-4523KzeypvoutProMedica Flower Hospital on above:Order Comment: Specimen Type: BLOOD SPECIMENOrdering Facility: [facility] Address:[address] [place], [place] [address]Performed By: #### 07867-5, 2276-4, 2132-9, 2284-8 ####[facility] LABCLIA [id number] [address] [address] [place] OF AMERICAXR Lumbar spine 4 Viewson 75-46-6378Snni: XR LUMBAR SPINE COMPLETE 4+ VIEWS Reason for exam: Fall five days ago, lower back spasms Prior comparative studies: None Findings: There is overall normal lumbar alignment. Vertebral heights are maintained. Advanced endplate sclerosis and osteophyte formation is present at all levels most notably L4-S1. Facet sclerosisis pronounced L4-S1. No spondylolysis is apparent. There is a minimal scoliosis convex to the right. SI joints are symmetric. No acute fracture is identified. IMPRESSION: 1. No acute abnormality identified. 2. Severe degenerative change throughout the lumbar spine. Dictated on: 05/31/2024 8:03 AM This report has been electronically signed and approved by the interpreting radiologist. Chase Ma MD - 05/31/2024 Exam: XR LUMBAR SPINE COMPLETE 4+ VIEWS Reason for exam: Fall five days ago, lower back spasms Prior comparative studies: None Findings: There is overall normal lumbar alignment. Vertebral heights are maintained. Advanced endplate sclerosis and osteophyte formation is present at all levels most notably L4-S1. Facet sclerosisis pronounced L4-S1. No spondylolysis is apparent. There is a minimal scoliosis convex to the right. SI joints are symmetric. No acute fracture is identified. IMPRESSION: 1. No acute abnormality identified. 2. Severe degenerative change throughout the lumbar spine. Dictated on: 05/31/2024 8:03 AM This report has been electronically signed and approved by the interpreting radiologist. [facility] Lumbar spine 4 ViewsOrdered By: Chase Thompson on 68-28-8859BBDVRanken Jordan Pediatric Specialty Hospital Work Phone: XR Pelvis AP and Hip - bilateral GE 2 Viewson 82-69-4084GZ HIPS BILATERAL 2 VW WITH OR WITHOUT PELVIS Reason for exam: Fall five days ago, lower back spasms Prior comparative studies: None Findings: There is moderate sclerosis and osteophyte formation in both hips. SI joints are symmetric. No fracture, malalignment or subluxation is apparent. Osseous density is normal. Impression: 1. No acute osseous abnormality identified. 2. Moderate degenerative changes. Chase Ma MD - 05/31/2024 XR HIPS BILATERAL 2 VW WITH OR WITHOUT PELVIS Reason for exam: Fall five days ago, lower back spasms Prior comparative studies: None Findings: There is moderate sclerosis and osteophyte formation in both hips. SI joints are symmetric. No fracture, malalignment or subluxation is apparent. Osseous density is normal. Impression: 1. No acute osseous abnormality identified. 2. Moderate degenerative changes. [facility]XR Radius and Ulna - left 2 Viewson 05-31-2024 Exam: XR FOREARM 2 VIEWS LEFT Reason for exam: Fall five days ago, bruising to anterior left forearm Prior comparative studies: None Findings: The soft tissues are unremarkable. No fracture, malalignment or subluxation is apparent. Osseous density is normal. Impression: 1. No acute osseous abnormality identified. Dictated on: 05/31/2024 8:06 AM This report has been electronically signed and approved by the interpreting radiologist. Chase Ma MD - 05/31/2024 Exam: XR FOREARM 2 VIEWS LEFT Reason for exam: Fall five days ago, bruising to anterior left forearm Prior comparative studies: None Findings: The soft tissues are unremarkable. No fracture, malalignment or subluxation is apparent. Osseous density is normal. Impression: 1. No acute osseous abnormality identified. Dictated on: 05/31/2024 8:06 AM This report has been electronically signed and approved by the interpreting radiologist. [facility]eXR Thoracic spine 3 Viewson 08-90-5058Xjgj: XR THORACIC SPINE 3 VIEWS Reason for exam: Fall five days ago, lower back spasms, bruising left posterior ribs Prior comparative studies: None Findings: There is normal thoracic alignment. Vertebral heights are maintained. There is substantial endplate sclerosis and osteophyte formation at all levels. No acute fracture is apparent. Paravertebral soft tissues are unremarkable. IMPRESSION: 1. No acute osseous abnormality identified. 2. Moderate degenerative change throughout the thoracic spine. Dictated on: 05/31/2024 8:04 AM This report has been electronically signed and approved by the interpreting radiologist. Chase Ma MD - 05/31/2024 Exam: XR THORACIC SPINE 3 VIEWS Reason for exam: Fall five days ago, lower back spasms, bruising left posterior ribs Prior comparative studies: None Findings: There is normal thoracic alignment. Vertebral heights are maintained. There is substantial endplate sclerosis and osteophyte formation at all levels. No acute fracture is apparent. Paravertebral soft tissues are unremarkable. IMPRESSION: 1. No acute osseous abnormality identified. 2. Moderate degenerative change throughout the thoracic spine. Dictated on: 05/31/2024 8:04 AM This report has been electronically signed and approved by the interpreting radiologist. [facility]eNo Panel Informationon 69-91-5177Jgieseshf Study observation (narrative)[facility] HospitalXR FOREARM 2 VIEWS LEFTon 70-24-2454ZY FOREARM 2 VIEWS LEFTExam: XR FOREARM 2 VIEWS LEFT Reason for exam: Fall five days ago, bruising to anterior left forearm Prior comparative studies: None Findings: The soft tissues are unremarkable. No fracture, malalignment or subluxation is apparent. Osseous density is normal. Impression: 1. No acute osseous abnormality identified. Dictated on: 05/31/2024 8:06 AM This report has been electronically signed and approved by the interpreting radiologist.NormalNot AvailableXR HIPS BILATERAL 2 VW WITH OR WITHOUT PELVISon 63-26-7989WF HIPS BILATERAL 2 VW WITH OR WITHOUT PELVISXR HIPS BILATERAL 2 VW WITH OR WITHOUT PELVIS Reason for exam: Fall five days ago, lower back spasms Prior comparative studies: None Findings: There is moderate sclerosis and osteophyte formation in both hips. SI joints are symmetric. No fracture, malalignment or subluxation is apparent. Osseous density is normal. Impression: 1. No acute osseous abnormality identified. 2. Moderate degenerative changes.NormalNot AvailableXR LUMBAR SPINE COMPLETE 4+ VIEWSon [id number] LUMBAR SPINE COMPLETE 4+ VIEWSExam: XR LUMBAR SPINE COMPLETE 4+ VIEWS Reason for exam: Fall five days ago, lower back spasms Prior comparative studies: None Findings: There is overall normal lumbar alignment. Vertebral heights are maintained. Advanced endplate sclerosis and osteophyte formation is present at all levels most notably L4-S1. Facet sclerosisis pronounced L4-S1. No spondylolysis is apparent. There is a minimal scoliosis convex to the right. SI joints are symmetric. No acute fracture is identified. IMPRESSION: 1. No acute abnormality identified. 2. Severe degenerative change throughout the lumbar spine. Dictated on: 05/31/2024 8:03 AM This report has been electronically signed and approved by the interpreting radiologist.NormalNot AvailableXR THORACIC SPINE 3 VIEWSon [id number] THORACIC SPINE 3 VIEWSExam: XR THORACIC SPINE 3 VIEWS Reason for exam: Fall five days ago, lower back spasms, bruising left posterior ribs Prior comparative studies: None Findings: There is normal thoracic alignment. Vertebral heights are maintained. There is substantial endplate sclerosis and osteophyte formation at all levels. No acute fracture is apparent. Paravertebral soft tissues are unremarkable. IMPRESSION: 1. No acute osseous abnormality identified. 2. Moderate degenerative change throughout the thoracic spine. Dictated on: 05/31/2024 8:04 AM This report has been electronically signed and approved by the interpreting radiologist.NormalNot AvailableCNNURSEon [id number] Visit [facility] JEANNETTE HURTADO ([id number]) 1965 F Date Time Provider Department 05/10/24 2:00 PM MERVIN NURSE EDMUND CARRERO During your visit today, we recorded the following information about you: Temperature Pulse Respiration Blood pressure 98.3 degrees 67/minute 18/minute 151/79 Referring Provider: JOSE ROSE [[id number]] Allergies As of Date: 05/10/2024 Noted Allergy Reaction COMPAZINE (PROCHLORPERAZINE EDISY*01/13/2005 LATEX 01/21/2023 16 - Unknown Date Reviewed: 04/05/2024 Reviewed by: Mel Concepcion RN - Fully Assessed Primary Visit Diagnosis:Iron deficiency anemia secondary to inadequate dietary iron intake [D50.8] Order(s):[] cyanocobalamin 1,000 mcg injectionDisp: Rfl: Prescriptions as of 05/10/2024 - PLAVIX 75 mg tablet Take 75 [...] Sarmiento MA Problem List As Of Date 05/10/2024 Noted Resolved HIDRADENITIS [L73.2] 01/13/2005 Iron deficiency anemia secondary to inadequate *02/07/2023 Prescriptions ordered this encounter Disp Refills Start End CYANOCOBALAMIN (VIT B-12) 1,000 MCG/* 05/10/2024 05/10/2024 Route: INTRAMUSCULA Encounter Status:Closed by PHILLIP BERNARD on 05/10/24[facility] screening mammo BI w/CADon [id number] screening mammo BI w/CAD [facility] Main [place] [address] [place] [address] Mammography Report Signed Patient: Jeannette Hurtado MR#: [id number] : 1965 Acct:[id number] Age/Sex: 58 / F ADM Date: 05/10/24 Loc: [place] Room: Type: [facility] Attending Dr: Pura Lara DO Copies to: MD AMERICA Ragland MONA DO Ordering Provider: PURA LARA DO Date of Service: 05/10/24 MM/MM screening mammo BI w/CAD: screening CLINICAL DATA: Screening for malignancy. BILATERAL SCREENING MAMMOGRAMS - FULL FIELD DIGITAL WITH TOMOSYNTHESIS AND CAD Tomosynthesis craniocaudal and mediolateral oblique views of both breasts were obtained using low- dose digital technique. Comparison is made to prior studies from July 30, 2010 through May 15, 2019. This examination was reviewed with the aid of CAD. The breast parenchyma has been largely replaced by fat. There is benign- appearing nodularity including a persistent dermal lesion medially on the right. There are no developing masses, typically malignant calcifications or architectural distortion. There has been no significant interval change. MM/MM screening mammo BI w/CAD IMPRESSION: NO MAMMOGRAPHIC EVIDENCE OF MALIGNANCY. ROUTINE FOLLOW-UP IS RECOMMENDED IN ONE YEAR. RESULT CODE: 2 Benign Findings(s) DENSITY CODE: 1 (<25% glandular) FOLLOW UP: 1YR The false-negative rate of mammography is approximately 10-percent. Management of a palpable abnormality must be based on clinical grounds. Patient was entered into a reminder system with a target due date for the next mammogram. Impression dictated by: Ileana Sidhu M.D.05/10/2024 4:20 PM Dictation Location: [facility] Transcribed By: [facility] 05/10/24 1620 Dictated By: Ileana Sidhu MD 05/10/24 161 Signed By: 05/10/24 1620[facility] Physician GroupUrinalysis macro (dipstick) panel (U)on 93-57-2842Behejyjlu, UANegativeNegative - 4(70) +++ mg/dLNOMS HealthcareBlood, UANegativeNegative - 50 Tima/mcLNOMS HealthcareClarity, UAClear NOMS HealthcareColor, UALight YellowNOMS HealthcareGlucose, UANegativeNegative - 2000(110) ++++ mg/dLNOMS HealthcareInterpretation and review of laboratory resultsNormalNOMS HealthcareKetones, UANegativeNegative - 160(16) ++++ mg/dLNOMS HealthcareLeukocytes, UAManyNegative - 500+++ Delvin/mcLNOMS HealthcareNitrite, UA NegativeNegative - PositiveNOMS HealthcarepH, UA55 - 9NOMS HealthcareProtein, UA NegativeNegative - 2000(20) ++++ mg/dLNOMS HealthcareSpec Grav, UA1.011 - 1.03 NOMS HealthcareUrobilinogen, UA1.00.2 - 12 mg/dLNOMS HealthcareNOMS Healthcare Urinalysis macro (dipstick) panel (U)on 88-64-3051Yfaivlznf, UANegativeNegative - 4(70) +++ mg/dLNOMS HealthcareBlood, UANegativeNegative - 50 Tima/mcLNOMS HealthcareClarity, UAClearNOMS HealthcareColor, UADark AmberNOMS Healthcare Glucose, UANegativeNegative - 2000(110) ++++ mg/dLNOMS HealthcareInterpretation and review of laboratory resultsNormalNOMS HealthcareKetones, UANegativeNegative - 160(16) ++++ mg/dLNOMS HealthcareLeukocytes, UANegativeNegative - 500+++ Delvin/mcLNOMS HealthcareNitrite, UANegativeNegative - PositiveNOMS HealthcarepH, UA55 - 9NOTX HealthcareProtein, UANegativeNegative - 2000(20) ++++ mg/dLNOTX HealthcareSpec Grav, UA1.0151 - 1.03NOTX HealthcareUrobilinogen, UA1.00.2 - 12 mg/dLPerry County Memorial Hospital HealthcareNo Panel Informationon 51-75-8764GqnnPura Lara DO 03/22/2024 4:43 PM Pessary Date/Time: [...] #3 inserted. [address] in place with valsalvaNOMS [facility] HospitalCNPNon 72-33-9127WVOAQewrrtjjf (HEMASA) EJANNETTE HURTADO ([id number]) 1965 F Date Time Provider Department 03/15/24 KENDAL SPARKS During your visit today, we recorded the following information about you: Kendal Sparks RN 03/15/2024 11:08 AM Signed ----- Message from Maite Merritt PA-C sent at 03/15/2024 11:00 AM EDT ----- Please call with low iron levels which may be causing her fatigue. Offer Venofer 200 mg IVP x 5 doses. Kendal Sparks RN 03/15/2024 11:09 AM Signed Pt aware and [...] 03/16/2024 10:14 AM Signed Orders are in Maite SUNNY Stewart Brittany 03/16/2024 11:34 AM Signed Patient has been scheduled for Venofer x5 doses. Also sent patient a Scaled Inference message. She is all set, Thanks! Meghana Alamo Allergies As of Date: 03/15/2024 Noted [...] *02/07/2023 Encounter Status:Closed by KENDAL SPARKS on 03/16/24NormalCTriHealth [facility] W Auto Differential panel (Bld)on 23-43-5119Ibhhnxgrh (Bld) [#/Vol] 0.05 10*3/uLNormal<0.11CProMedica Flower Hospital on above:Order Comment: Specimen Type: BLOOD SPECIMENOrdering Facility: [facility] Address:[address] [place], [place] [address]Performed By: #### 61740-9, 36807-5 ####[facility] LABCLIA [id number] [place], [place] [address]Reqibfzgy/100 WBC (Bld)0.5 %NormalNorwalk Memorial Hospital on above:Order Comment: Specimen Type: BLOOD SPECIMENOrdering Facility: [facility] Address:[address] [place], [place] [address]Performed By: #### 53158-0, 37281-6 ####[facility] LABCLIA [id number] [place], [place] [address]Ycyjfocbmtjr cell count method Nom (Bld)AutoNormalCProMedica Flower Hospital on above:Order Comment: Specimen Type: BLOOD SPECIMENOrdering Facility: [facility] Address:[address] [place], [place] [address]Performed By: #### 11358- 0, 55217-4 ####[facility] LABCLIA [id number] [place], [place] [address]Grfdwckzaef (Bld) [#/Vol]0.26 10*3/uLNormal<0.46 [facility] on above:Order Comment: Specimen Type: BLOOD SPECIMENOrdering Facility: [facility] Address:[address] [place], [place] [address]Performed By: #### 18057-4, 35022-0 ####[facility] LABCLIA [id number] [place] [address] Eosinophils/100 WBC (Bld)2.5 %NormalNorwalk Memorial Hospital on above: Order Comment: Specimen Type: BLOOD SPECIMENOrdering Facility: [facility] Address:[address] [place], [place] [address]Performed By: #### 83487- 0, 42792-2 ####[facility] LABIA [id number] [place], [place] [address]Mdwtcbalqin distribution width (RBC) [Ratio]13.2 % Wrziau17.5-15.0[facility] on above:Order Comment: Specimen Type: BLOOD SPECIMENOrdering Facility: [facility] Address:[address] [place], [place] [address]Performed By: #### 20983-9, 97722-9 ####[facility] LABIA [id number] [place], [place] [address]Tmpkwoyjll (Bld) [Volume fraction]37.7 %Emoojo29.0-46.0 [facility] on above:Order Comment: Specimen Type: BLOOD SPECIMENOrdering Facility: [facility] Address:[address] [place], [place] [address]Performed By: #### 99329-5, 30228-0 ####[facility] LABIA [id number] [place] [address] Hemoglobin (Bld) [Mass/Vol]12.4 g/kPSjtvgw85.5-15.5COhio Valley Surgical Hospital Comment on above:Order Comment: Specimen Type: BLOOD SPECIMENOrdering Facility: [facility] Address:[address] [place] [address] Performed By: #### 09515-5, 47835-3 ####[facility] LABCLIA [id number] [place], [place] [address]Watiqhhq granulocytes (Bld) [#/Vol]0.05 10*3/uLNormal<0.10[facility] on above: Order Comment: Specimen Type: BLOOD SPECIMENOrdering Facility: [facility] Address:[address] [place], [place] [address]Performed By: #### 58566- 0, 14360-3 ####[facility] LABCLIA [id number] [place], [place] [address]Rozcipaa granulocytes/100 WBC (Bld)0.5 %Normal [facility] on above:Order Comment: Specimen Type: BLOOD SPECIMENOrdering Facility: [facility] Address:[address] [place], [place] [address]Performed By: #### 56594-8, 05701-4 ####[facility] LABCLIA [id number] [place] [address] Lymphocytes (Bld) [#/Vol]2.59 10*3/uLNormal1.00-4.00[facility] Comment on above:Order Comment: Specimen Type: BLOOD SPECIMENOrdering Facility: [facility] Address:[address] [place] [address] Performed By: #### 82609-3, 34077-6 ####[facility] LABCLIA [id number] [place], [place] [address]Eixbldqxtyi/100 WBC (Bld)25.1 %NormalNorwalk Memorial Hospital on above:Order Comment: Specimen Type: BLOOD SPECIMENOrdering Facility: [facility] Address:[address] [place], [place] [address]Performed By: #### 91983-4, 45041-8 ####[facility] LABCLIA [id number] [place], [place] [address]JUX (RBC) [Entitic mass]30.5 ibLcmunf34.0-34.0[facility] on above:Order Comment: Specimen Type: BLOOD SPECIMENOrdering Facility: [facility] Address:[address] [place], [place] [address]Performed By: #### 15069-0, 50770-1 ####[facility] LABCLIA [id number] [place], [place] [address]SKLK (RBC) [Mass/Vol]32.9 g/eRCqdeui61.5-36.0[facility] on above:Order Comment: Specimen Type: BLOOD SPECIMENOrdering Facility: [facility] Address:[address] [place], [place] [address]Performed By: #### 59829-9, 38803-4 ####[facility] LABCLIA [id number] [place], [place] [address]WSW (RBC) [Entitic vol]92.9 fLNormal 80.0-100.0[facility] on above:Order Comment: Specimen Type: BLOOD SPECIMENOrdering Facility: [facility] Address:[address] [place], [place] [address]Performed By: #### 53847-2, 93744-6 ####[facility] LABCLIA [id number] [place], [place] [address]Tizlmtjln (Bld) [#/Vol]0.68 10*3/uLNormal<0.87[facility] on above:Order Comment: Specimen Type: BLOOD SPECIMENOrdering Facility: [facility] Address:[address] [place], [place] [address]Performed By: #### 09529-9, 96594-3 ####[facility] LABCLIA [id number] [place] [address] Monocytes/100 WBC (Bld)6.6 %NormalNorwalk Memorial Hospital on above: Order Comment: Specimen Type: BLOOD SPECIMENOrdering Facility: [facility] Address:[address] [place], [place] [address]Performed By: #### 43901- 0, 50713-6 ####[facility] LABCLIA [id number] [place], [place] [address]Ungizntlrlz (Bld) [#/Vol]6.67 10*3/uLNormal 1.45-7.50[facility] on above:Order Comment: Specimen Type: BLOOD SPECIMENOrdering Facility: [facility] Address:[address] [place], [place] [address]Performed By: #### 55948-6, 01372-9 ####[facility] LABCLIA [id number] [place], [place] [address]Gifpkliisnl/100 WBC (Bld)64.8 %NormalNorwalk Memorial Hospital on above:Order Comment: Specimen Type: BLOOD SPECIMENOrdering Facility: [facility] Address:[address] [place], [place] [address]Performed By: #### 58667-5, 54723-2 ####[facility] LABCLIA [id number] [place], [place] [address]Wcqgwgnxg RBC (Bld) [#/Vol]10*3/uLNormal<0.01[facility] on above:Order Comment: Specimen Type: BLOOD SPECIMENOrdering Facility: [facility] Address:[address] [place], [place] [address]Performed By: #### 20243- 0, 04014-9 ####[facility] LABCLIA [id number] [place], [place] [address]Jkkhkyhwu RBC/100 WBC (Bld) [Ratio]0.0 /100 WBC NormalNorwalk Memorial Hospital on above:Order Comment: Specimen Type: BLOOD SPECIMENOrdering Facility: [facility] Address:[address] [place], [place] [address]Performed By: #### 46674-5, 84689-9 ####[facility] LABCLIA [id number] [place], [place] [address]Wuudgsxa mean volume (Bld) [Entitic vol]9.6 fLNormal9.0-12.7CProMedica Flower Hospital on above:Order Comment: Specimen Type: BLOOD SPECIMENOrdering Facility: [facility] Address:[address] [place], [place] [address]Performed By: #### 26981-8, 65767-9 ####[facility] LABCLIA [id number] [place] [address] Platelets (Bld) [#/Vol]247 10*3/oTSlbxhq815-763CxuriihtiNorwalk Memorial Hospital on above:Order Comment: Specimen Type: BLOOD SPECIMENOrdering Facility: [facility] Address:[address] [place] [address] Performed By: #### 80171-7, 71323-5 ####[facility] LABIA [id number] [place], [place] [address]PKN (Bld) [#/Vol]4.06 10*6/uLNormal3.90-5.20[facility] on above:Order Comment: Specimen Type: BLOOD SPECIMENOrdering Facility: [facility] Address:[address] [place], [place] [address]Performed By: #### 03183-7, 49958-1 ####[facility] LABIA [id number] [place], [place] [address]NDU (Bld) [#/Vol]10.30 10*3/uLNormal3.70-11.00[facility] on above:Order Comment: Specimen Type: BLOOD SPECIMENOrdering Facility: [facility] Address:[address] [place], [place] [address]Performed By: #### 16571-9, 54257-6 ####[facility] LABIA [id number] [place], [place] [address]ZTVIPMF on 38-88-7805KHIHZUCSgeyq Visit (HEMASA) JEANNETTE HURTADO ([id number]) 1965 F Date Time Provider Department 03/14/24 3:00 PM MERVIN NURSE EDMUND NAILA CARRERO During your visit today, we recorded the following information about you: Mariela Sarmiento MA 03/14/2024 3:18 PM Signed Patient Identification confirmed: yes. Injection given and documented on JUL per provider order. Mariela Sarmiento MA Referring Provider: JOSE ROSE [[id number]] Allergies As of Date: 03/14/2024 Noted Allergy Reaction COMPAZINE (PROCHLORPERAZINE EDISY*01/13/2005 LATEX 01/21/2023 16 - Unknown Date Reviewed: 03/14/2024 Reviewed by: Maite Merritt PA-C - Fully Assessed Primary Visit Diagnosis:Iron deficiency [...] INTRAMUSCULA Encounter Status:Closed by MARIELA SARMIENTO on 03/14/24[facility] CenterCNOVSPon 27-06-5283MKLPOLLerxg (SP) Office (HEMAS[place]) JEANNETTE HURTADO ([id number]) 1965 F Date Time Provider Department 03/14/24 2:30 PM MAITE MERRITT During your visit today, we recorded the following information about you: Temperature Pulse Respiration Blood pressure 97.5 degrees 68/minute 16/minute 141/74 Weight Height 92.2 kg 1.676 m Maite Merritt PA-C 03/14/2024 3:35 PM Signed NAME: Jeannette Hurtado CLINIC NO.: [id number] DATE OF SERVICE: March 14, 2024 (Shaina) Some elements in this clinic note that [...] replacement / balancing that is [facility] by [facility]. Updated Visit, July 11, 2023: Jeannette Hurtado [...] - ECOG PERFORMANCE STA (more content not included)...NormalPike Community Hospitalprehensive metabolic 2000 panelon 40-70-5339Jmbevco [Mass/Vol]4.7 g/dLNormal3.9-4.9CProMedica Flower Hospital on above:Order Comment: Specimen Type: BLOOD SPECIMENOrdering Facility: [facility] Address:[address] [address]Performed By: #### 2532-0, 28696-6 ####[facility] LABCLIA [id number] [place], [place] [address]SWY [Catalytic activity/Vol]117 U/XNoiuxl33-630EzmpazxnbNorwalk Memorial Hospital on above:Order Comment: Specimen Type: BLOOD SPECIMENOrdering Facility: [facility] Address:[address] [address]Performed By: #### 2532-0, 86574-5 ####[facility] LABCLIA [id number] [place], [place] [address]PVW [Catalytic activity/Vol]23 U/LNormal7-38[facility] on above:Order Comment: Specimen Type: BLOOD SPECIMENOrdering Facility: [facility] Address:[address] [place], [place] [address]Performed By: #### 2532-0, 55384-3 ####[facility] LABCLIA [id number] [place], [place] [address]Bhyyc gap [Moles/Vol]12 mmol/LNormal8-15 [facility] on above:Order Comment: Specimen Type: BLOOD SPECIMENOrdering Facility: [facility] Address:[address] [place], [place] [address]Performed By: #### 2532-0, ####[facility] LABCLIA [id number] [place], [place] [address]IPN [Catalytic activity/Vol]31 U/WWqlxwp08-73PhpfywwnkNorwalk Memorial Hospital on above:Order Comment: Specimen Type: BLOOD SPECIMENOrdering Facility: [facility] Address:[address] [place], [place] [address]Performed By: #### 2532-0, 83023-6 ####[facility] LABCLIA [id number] [place], [place] [address]Rfalgqajw [Mass/Vol]0.3 mg/dLNormal0.2-1.3 [facility] on above:Order Comment: Specimen Type: BLOOD SPECIMENOrdering Facility: [facility] Address:[address] [place], [place] [address]Performed By: #### 2532-0, 50770-3 ####[facility] LABCLIA [id number] [place], [place] [address]Rptsrxo [Mass/Vol]9.7 mg/dLNormal8.5-10.2CProMedica Flower Hospital on above: Order Comment: Specimen Type: BLOOD SPECIMENOrdering Facility: [facility] Address:[address] [place] [address]Uiioqwfwu By: #### 2532- 0, 15401-4 ####[facility] LABCLIA [id number] [place], [place] [address]Tocohquu [Moles/Vol]100 mmol/FEbzdkf77-235WotlithsfNorwalk Memorial Hospital on above:Order Comment: Specimen Type: BLOOD SPECIMENOrdering Facility: [facility] Address:[address] [place], [place] [address]Performed By: #### 2532-0, 98215-4 ####[facility] LABCLIA [id number] [place], [place] [address]LW5 [Moles/Vol]26 mmol/UBuajmt34-66FkwyyssbtNorwalk Memorial Hospital on above:Order Comment: Specimen Type: BLOOD SPECIMENOrdering Facility: [facility] Address:[address] [place], [place] [address]Performed By: #### 2532- 0, 29758-3 ####[facility] LABCLIA [id number] [place], [place] [address]Mxdydjqrqc [Mass/Vol]0.89 mg/dLNormal0.58-0.96 [facility] on above:Order Comment: Specimen Type: BLOOD SPECIMENOrdering Facility: [facility] Address:[address] [place], [place] [address]Performed By: #### 2532-0, 55002-2 ####[facility] LABCLIA [id number] [place] [address] Creatinine and Glomerular filtration rate.predicted panel (S/P/Bld)74 mL/min/1.73m???Normal>=60[facility] on above:Order Comment: Specimen Type: BLOOD SPECIMENOrdering Facility: [facility] Address:[address] [place], [place] [address]Result Comment: Estimated Glomerular Filtration Rate (eGFR) is calculated using the 2020 CKD-EPI cre atinine equation. This equation utilizes serum creatinine, sex, and age as parameters. The creatinine assay has traceable calibration to isotope dilution- mass spectrometry. Refer to KDIGO guidelines for clinical interpretation. In patients with unstable renal function, e.g. those with acute kidney injury, the eGFR may not accurately reflect actual GFR.Performed By: #### 2532-0, ####[facility] LABCLIA [id number] [place], [place] [address]Yreeaxc [Mass/Vol]107 mg/gKBxtv49-69EjzguyrcwNorwalk Memorial Hospital on above:Order Comment: Specimen Type: BLOOD SPECIMENOrdering Facility: [facility] Address:[address] [place], [place] [address]Inaion Comment: The [place] Diabetes Association (ADA) provides guidance for cutoff values for fasting glucose and random glucose. The ADA defines fasting as no caloric intake for at least 8 hours. Fasting plasma glucose results between 100 to 125 mg/dL indicate increased risk for diabetes (prediab etes). Fasting plasma glucose results greater than or [...] Standards of Medical Care in Diabetes 2016, [place] [employer]. Diabetes Care. 2016.39(Suppl 1).Performed By: #### 2532-0, ####[facility] LABCLIA [id number] [place], [place] [address]Mzdbcaiyl [Moles/Vol]4.4 mmol/LNormal3.7-5.1CProMedica Flower Hospital on above:Order Comment: Specimen Type: BLOOD SPECIMENOrdering Facility: [facility] Address:[address] [place], [place] [address]Dfpqctrgv By: #### 2532-0, 12934-7 ####[facility] LABCLIA [id number] [place], [place] [address]Ephwhds [Mass/Vol]7.6 g/dLNormal6.3-8.0[facility] on above:Order Comment: Specimen Type: BLOOD SPECIMENOrdering Facility: [facility] Address:[address] [place], [place] [address]Performed By: #### 2532- 0, 60310-9 ####[facility] LABCLIA [id number] [place], [place] [address]Yzvqrn [Moles/Vol]138 mmol/XVluozn670-312LujvtsjzvNorwalk Memorial Hospital on above:Order Comment: Specimen Type: BLOOD SPECIMENOrdering Facility: [facility] Address:[address] [place], [place] [address]Performed By: #### 2532-0, 20826-5 ####[facility] LABCLIA [id number] [place], [place] [address]Fwlp nitrogen [Mass/Vol]18 mg/dLNormal7-21[facility] on above: Order Comment: Specimen Type: BLOOD SPECIMENOrdering Facility: [facility] Address:[address] [place], [place] [address]Performed By: #### 2532- 0, 90023-5 ####[facility] LABCLIA [id number] [place], [place] [address]Krfanwvy SerPl-mCncon 25-86-2831Sqwknegw [Mass/Vol] 89.5 ng/rOLcrsjc46.7-205.1CProMedica Flower Hospital on above:Order Comment: Specimen Type: BLOOD SPECIMENOrdering Facility: [facility] Address:[address] [place], [place] [address]Performed By: #### 86069- 8, 2132-9, 2276-4, 2284-8 ####[facility] LABCLIA [id number] [id number] [id number] [place] OF AMERICAFolate SerPl-mCncon 49-90-3565Zekbuh [Mass/Vol]ng/mLNormal>4.7CProMedica Flower Hospital on above:Order Comment: Specimen Type: BLOOD SPECIMENOrdering Facility: [facility] Address:[address] [place], [place] [id number] Comment: A result of > 20 ng/mL is not necessarily indicative of a pathologic or treatable condition: it reflects a limitation of the test methodology. Assay reference range: 4.8 to 24.2 ng/mL. Suitable for detection of folate deficiency. Reference: Folate III (Folate III) [package insert V 1.0 [place]]. [facility], [place], [place]: March 2015.Performed By: #### [id number], 9, 4, 2283-12 ####[facility] LABCLIA [id number] [place] [address] [place] AMERICAIron and Iron binding capacity panelon 32-02-7478Ldbu [Mass/Vol]56 ug/mFYfydmk68-813LlfwnqvveGuernsey Memorial Hospital Comment on above:Order Comment: Specimen Type: BLOOD SPECIMENOrdering Facility: [facility] Address:[address] [place] [address] Performed By: #### 53114-5, 9, 2275-08, 2283-12 ####[facility] LABIA [id number] [place] [id number] [place] AMERICAIron binding capacity [Mass/Vol]395 ug/aGSuja428-846OumnoeqatGuernsey Memorial HospitalComment on above:Order Comment: Specimen Type: BLOOD SPECIMENOrdering Facility: [facility] Address:[address] [place], [place] [address]Performed By: #### 11584-3, 9, 2275-08, 2283-12 ####[facility] LABIA [id number] [place] [address] [place] AMERICAIron/TIBC [Molar ratio]14.2 %Low 15.0-57.0Guernsey Memorial HospitalComment on above:Order Comment: Specimen Type: BLOOD SPECIMENOrdering Facility: [facility] Address:[address] [place], [place] [address]Performed By: #### 06225-1, 2132-9, 2276-4, 2284- 8 ####[facility] LABCLIA [id number] [address] OF [facility] CENTERLD SerPl-cCncon 56-79-9899BAD [Catalytic activity/Vol]189 U/ESanctu535-101IqcfqgjolNorwalk Memorial Hospital on above:Order Comment: Specimen Type: BLOOD SPECIMENOrdering Facility: [facility] Address:[address] [place], [place] [address]Performed By: #### 2532-0, 54274-0 ####[facility] LABIA [id number] [place], [place] [address]Yhctxk #on 82-22-8817Xdslfzclyhomv (Bld) [#/Vol]0.89705 10*3/uLNormal0.018-0.100[facility] on above:Order Comment: Specimen Type: BLOOD SPECIMENOrdering Facility: [facility] Address:[address] [place], [place] [address]Performed By: #### 96358-8, 79977-5 ####[facility] LABIA [id number] [place], [place] [address]Xnoovstpqzqxo (Bld) [#/Vol]on 03-14-2024 Reticulocytes/100 RBC (Bld)1.6 %Normal0.4-2.0[facility] on above:Order Comment: Specimen Type: BLOOD SPECIMENOrdering Facility: [facility] Address:[address] [place] [address] Performed By: #### 68421-3, 76598-0 ####[facility] LABIA [id number] [place], [place] [address]STP SerPl-aCncon 32-51-9591RZZ Qn3.130 m[IU]/LNormal0.270-4.200[facility] on above:Order Comment: Specimen Type: BLOOD SPECIMENOrdering Facility: [facility] Address:[address] [place] [address] Performed By: #### 3016-3 ####[facility] LABIA [id number] [place] [address] [place] Vit B12 SerPl-mCncon 17-01-4464Siuiofvia (Vitamin B12) [Mass/Vol]634 pg/mLNormal 232-1245COhio Valley Surgical HospitalComment on above:Order Comment: Specimen Type: BLOOD SPECIMENOrdering Facility: [facility] Address:[address] [place], [place] [address]Performed By: #### 38592-8, 2132-9, 2276-4, 2284- 8 ####[facility] LABCLIA [id number] [place] [address] [place] AMERICAXR hand LT min 3V*on 87-71-1988ZB hand LT min 3V*[facility] [place] [address] XRay Report Signed Patient: Jeannette Hurtado MR#: [id number] : 1965 Acct:[id number] Age/Sex: 58 / F ADM Date: 02/20/24 Loc: Room: Type: [facility] Attending Dr: Klaudia Gomez MD Copies [...] Hayden Valdez M.D.02/20/2024 10:14 PM Dictation Location: RADIO-PC-13 Transcribed By: YEYO 02/20/242213 Dictated By: Hayden Valdez II, MD 02/20/242211 Signed By: 02/20/24 [facility] HospitalH[facility] Physician GroupXR wrist LT min 3V*on 02-20-2024 XR wrist LT min 3V*[facility] [address] XRay Report Signed Patient: Jeannette Hurtado MR#: [id number] : 1965 Acct:[id number] Age/Sex: 58 / F ADM Date: 02/20/24 Loc: XD Room: Type: [facility] Attending Dr: Klaudia Gomez MD Copies [...] Hayden Valdez M.D.02/20/2024 10:16 PM Dictation Location: RADIO-PC-13 Transcribed By: YEYO 02/20/242215 Dictated By: Hayden Valdez II, MD 02/20/242213 Signed By: 02/20/242215[facility] Physician GroupAbsolute reticulocyte counton 24-16-3551Ldknohgxrayjo (Bld) [#/Vol]0.13351 10*3/uL0.018-0.100Fire[facility] Regional Medical CenterBasophils Auto (Bld) [#/Vol]on 06-00-8706Vmvmzraef (Bld) [#/Vol]0.04 10*3/uL<0.11[facility] HospitalBasophils/100 WBC Auto (Bld)on 79-78-7252Swlselikr/100 WBC (Bld)0.5 %[facility] Blood manual differential comment interpretation narrativeon 23-80-7374Xyqaju differential comment Alec (Bld) [Interp]AutoMercy Health St. Charles Hospital Eosinophils/100 WBC Auto (Bld)on 71-68-3168Nqdnppcorpt/100 WBC (Bld)2.2 % [facility] Charles HospitalErythrocyte distribution width Auto (RBC) [Ratio]on 87-34-4107Mwtwjtljwey distribution width (RBC) [Ratio]12.5 %11.5-15.[address] [facility] HospitalHematocrit Auto (Bld) [Volume fraction]on 07-19-5555Deflmrkhui (Bld) [Volume fraction]36.3 %36.0-46.0[facility] HospitalHemoglobin [Mass/volume] in Bloodon 89-98-8131Yotlmestew (Bld) [Mass/Vol]11.8 g/dL11.5-15.5FMercy Health St. Elizabeth Boardman HospitalIron binding capacity [Mass/volume] in Serum or Plasmaon 41-36-3427Ksxh binding capacity [Mass/Vol]349 ug/kM281-036FmozbijjwMercy Health St. Charles HospitalIron saturation [Mass Fraction] in Serum or Plasmaon 31-21-6503Pfzq saturation [Mass fraction]12.6 % Low15.0-57.0[facility] HospitalLaboratory - Chemistry and Chemistry - challengeon 34-56-6463Zgndpci [Mass/Vol]4.3 g/dL3.9-4.9[facility] HospitalALP [Catalytic activity/Vol]105 U/O78-467OugxzrauvMercy Health St. Charles HospitalALT [Catalytic activity/Vol]30 U/L7-38[facility] HospitalAST [Catalytic activity/Vol]33 U/G96-74VpksysptqMercy Health St. Charles HospitalBilirubin [Mass/Vol]0.3 mg/dL0.2-1.3FMercy Health St. Elizabeth [facility]man Hospital Calcium [Mass/Vol]9.5 mg/dL8.5-10.2FMercy Health St. Elizabeth Boardman HospitalChloride [Moles/Vol]100 mmol/V66-962DfspnshwlMercy Health St. Charles HospitalCO2 [Moles/Vol]24 mmol/K85-82YyjplzuvbMercy Health St. Charles HospitalCobalamin (Vitamin B12) [Mass/Vol] 514 pg/nM963-9485HvbblwmebMercy Health St. Charles HospitalCreatinine [Mass/Vol]0.86 mg/dL0.58-0.96[facility] HospitalFerritin [Mass/Vol]113.0 ng/mL 14.7-205.1FMercy Health St. Elizabeth Boardman HospitalGlucose [Mass/Vol]115 mg/kFLagu53-[address] Charles HospitalComment on above:The [place] Diabetes Association (ADA) provides guidance for cutoff [...] hyperglycemia or hyperglycemic crisis, random plasma glucose resultsgreater than or equal to 200 mg/dL meet the criteria for diagnosis of diabetes.Reference: [employer] in Diabetes 2016, [place] Diabetes Association. Diabetes Care. 2016.39(Suppl 1). Iron [Mass/Vol]44 ug/gA62-366UlmbeikmnMercy Health St. Charles HospitalPotassium [Moles/Vol]4.5 mmol/L3.7-5.1FMercy Health Kings Mills Hospitalodium [Moles/Vol] 138 mmol/I327-388DvtcozblcMercy Health St. Charles HospitalUrea nitrogen [Mass/Vol]15 mg/dL7-21[facility] HospitalLaboratory - Hematology and Cell countson 49-09-1705Mcgriftpgbx (Bld) [#/Vol]0.18 10*3/uL<0.46[facility] HospitalImmature granulocytes (Bld) [#/Vol]0.03 10*3/uL<0.10[facility] HospitalImmature granulocytes/100 WBC (Bld)0.4 %[facility] HospitalLeukocytes [#/volume] corrected for nucleated erythrocytes in Blood by Automated counon 72-68-2563ANH corrected for nucl RBC Auto (Bld) [#/Vol]8.13 k/uL3.70-11.00[facility] Lymphocytes Auto (Bld) [#/Vol]on 66-78-7244Phyepvjqwcf (Bld) [#/Vol]2.48 10*3/uL 1.00-4.00[facility] HospitalLymphocytes/100 WBC Auto (Bld)on 47-92-6858Otgaaiydksz/100 WBC (Bld)30.5 %[facility] Medical CenterH Auto (RBC) [Entitic mass]on 05-96-1040BMR (RBC) [Entitic mass]30.8 pg26.0-34.[address] [facility] HospitalMCHC Auto (RBC) [Mass/Vol]on 90-67-9643URLD (RBC) [Mass/Vol]32.5 g/dL30.5-36.0[facility] HospitalMCV Auto (RBC) [Entitic vol]on 65-69-4846QRB (RBC) [Entitic vol]94.8 fL80.0-100.[address] [facility] HospitalMonocytes Auto (Bld) [#/Vol]on 12-21-2023 Monocytes (Bld) [#/Vol]0.69 10*3/uL<0.87[facility] Monocytes/100 WBC Auto (Bld)on 48-10-6561Hatymbbhf/100 WBC (Bld)8.5 %[facility] HospitalNeutrophils Auto (Bld) [#/Vol]on 85-64-1989Ykioneuorxr (Bld) [#/Vol]4.71 10*3/uL1.45-7.50[facility] Neutrophils/100 WBC Auto (Bld)on 78-86-2325Ziurtqlrlii/100 WBC (Bld)57.9 % [facility] HospitalNo Panel Informationon 59-75-3534Rmprflhks GFR (CKD-EPI)77 mL/min/1.73m???>=60[facility] Charles HospitalComment on above:Estimated Glomerular Filtration Rate (eGFR) is calculated using the 2020 CKD-EPI creatinine equation. This equation utilizes serum creatinine, sex, and age as parameters. The creatinine assay has traceable calibration to isotope dilution-mass spectrometry. Refer to KDIGO guidelines for clinical inte rpretation. In patients with unstable renal function, e.g. those with acute kidney injury, the eGFRmay not accurately reflect actual GFR.Folate>20.0 ng/mL >4.7FMercy Health St. Elizabeth Boardman HospitalComment on above:A result of > 20 ng/mL is not necessarily indicative of a pathologic or treatable condition: it reflects a limitation of the test methodology.Assay reference range: 4.8 to 24.2 ng/mL. Suitable fordetection of folate deficiency.Reference:Folate III (Folate III) [package insert V 1.0 Austrian]. [employer], [place], [place]: March 2015.Nucleated RBC Auto (Bld) [#/Vol]on 19-39-9408Bnmjqesia RBC (Bld) [#/Vol] 10*3/uL<0.01[facility] HospitalNucleated erythrocytes [Presence] in Blood by Automated counton 68-97-1613Ipatvcrnl RBC Auto Ql (Bld)0.0 /100{WBC} [facility] Charles HospitalPlatelet mean volume Auto (Bld) [Entitic vol]on 94-20-7467Ehxojulc mean volume (Bld) [Entitic vol]9.8 fL9.0-12.7FMercy Health St. Elizabeth Boardman HospitalPlatelets Auto (Bld) [#/Vol]on 90-11-4585Ekvxkidog (Bld) [#/Vol]200 10*3/jE306-401TbwxojfrzMercy Health St. Charles HospitalProtein [Mass/volume] in Serum or Plasmaon 35-16-2854Qdeeaga [Mass/Vol]6.6 g/dL6.3-8.0[facility] HospitalRBC Auto (Bld) [#/Vol]on 30-86-6465GRY (Bld) [#/Vol]3.83 10*6/uLLow3.90-5.20[facility] HospitalReticulocytes/100 RBC Auto (Bld)on 46-03-1689Zmeebisemlpxg/100 RBC (Bld)1.2 %0.4-2.0Flower Hospitalerum or plasma anion gap determinationon 88-63-5123Eaeut gap [Moles/Vol]14 mmol/L8-15[facility] HospitalBASIC METABOLIC PANLon 11-92-1622Qqmzv gap [Moles/Vol]6 mmol/LNormal5-15[facility] Comment on above:Performed By: #### MIGUEL ÁNGEL MCBRIDE, 3040-3, 52360-7, LIVR #### [facility] ([id number]) [address] [place] [address], [place] [address]Yoyrhoh [Mass/Vol]8.8 mg/dLNormal8.5-10.5POhioHealth Berger HospitalComment on above:Performed By: #### MIGUEL ÁNGEL MCBRIDE, 3040-3, 51024-2, LIVR #### [facility] ([id number]) [address] [place] [address], [place] [address]Kqpmzwlu [Moles/Vol]104 mmol/XHtwmvu23-033VhpEhvjlwStephens Memorial HospitalComment on above:Performed By: #### MIGUEL ÁNGEL MCBRIDE, 3040-3, 68739-9, LIVR #### [facility] ([id number]) [address] [place] [address], [place] [address]II6 [Moles/Vol]21 mmol/JMar93-17AyxXmhokuOhioHealth Berger Hospital Comment on above:Performed By: #### RAE, BMP, 3040-3, 93656-3, LIVR #### [facility] ([id number]) [address] [place] [address], [place] [address]Jszociqprp [Mass/Vol]0.76 mg/dLNormal0.40-1.00[facility] Health PrebleComment on above:Result Comment: METHOD TRACEABLE TO IDMS STANDARD Performed By: #### RAE BMP, 3040-3, 50238-6, LIVR #### [facility] ([id number]) [address] [place] [address] 65864yLSN (CKD-EPI) NON-RACE DEPENDENT>90Normal>59ProStephens Memorial HospitalComment on above:Result Comment: Reported eGFR is based on the CKD-EPI 2020 equation that does not use a race coefficient.Performed By: #### MIGUEL ÁNGEL MCBRIDE, 3040-3, 75648-7, LIVR #### [facility] ([id number]) [address] [place] [address] 11988Mmpubtr [Mass/Vol]130 mg/aZAchm08-59QszHdolhcKettering Health Preble Comment on above:Performed By: #### MIGUEL ÁNGEL MCBRIDE, 3040-3, 54890-0, LIVR #### [facility] ([id number]) [address] [place] [address]Qerkgslyn [Moles/Vol]3.8 mmol/LNormal3.5-5.0ProStephens Memorial HospitalComment on above:Performed By: #### MIGUEL ÁNGEL MCBRIDE, 3040-3, 11417-9, LIVR #### [facility] ([id number]) [address] [place] [address] 36128Hycvbu [Moles/Vol]131 mmol/VDxv214-301WxzZqgvsrStephens Memorial HospitalComment on above:Performed By: #### MIGUEL ÁNGEL MCBRIDE, 3040-3, 86365-7, LIVR #### [facility] ([id number]) [address] [place] [address] 19456Lbpj nitrogen [Mass/Vol]13 mg/dLNormal5-23ProStephens Memorial HospitalComment on above:Performed By: #### MIGUEL ÁNGEL MCBRIDE, 3040-3, 43137-3, LIVR #### [facility] ([id number]) [address] [place] [address] 412[address]FYA AND AUTO DIFFon 99-46-3272XCXTJBGI BASOPHIL0.0 X10E9/L Normal0.0-0.2POhioHealth Berger HospitalComment on above:Performed By: #### CBCA, BMP, 3040-3, 73540-4, LIVR #### [facility] ([id number]) [address] [place] [address] 77477JJPYQNMD NEUTROPHIL7.1 X10E9/LHigh1.5-6.6ProStephens Memorial HospitalComment on above:Performed By: #### CBCA, [facility], 3040-3, 46755-0, LIVR #### [facility] ([id number]) [address] [place] [address] 69374Qirdhgmpl/100 WBC (Bld)0.5 %NormalKettering Health Preble Comment on above:Performed By: #### CBCA, MIGUEL ÁNGEL, 3040-3, 83251-2, LIVR #### [facility] ([id number]) [address] [place] [address] 26110Dxrvnvhrmkh (Bld) [#/Vol]0.1 10*3/uLNormal0.0-0.4[facility] Health PrebleComment on above:Performed By: #### CBCKennedy, MIGUEL ÁNGEL, 3040-3, 66650-2, LIVR #### [facility] ([id number]) [address] [place] [address] 71641Dsxbqhssirj/100 WBC (Bld)1.2 %NormalKettering Health Preble Comment on above:Performed By: #### CBCA, BMP, 3040-3, 23957-3, LIVR #### [facility] ([id number]) [address] [place] [address] 70311Mkiaadrkqrm distribution width (RBC) [Ratio]13.8 %Normal 11.5-15.0K[facility]tering Health PrebleComment on above:Performed By: #### CBCA, BMP, 3040-3, 54801-3, LIVR #### [facility] ([id number]) [address] [place] [address] 92531Sjnxupercq (Bld) [Volume fraction]38.5 %Ffrffw02-90QwsCnwuqzStephens Memorial HospitalComment on above:Performed By: #### CBCA, BMP, 3040-3, 19323-2, LIVR #### [facility] ([id number]) [address] [place] [address] 66021Ksmgvdtmkj (Bld) [Mass/Vol]13.2 g/nDJgtflb04.7-15.5POhioHealth Berger HospitalComment on above:Performed By: #### RAE, BMP, 3040-3, 60194-4, LIVR #### [facility] ([id number]) [address] [place] [address] 72671Jglqriepgjt (Bld) [#/Vol]1.0 10*3/uLNormal1.0-3.5POhioHealth Berger HospitalComment on above:Performed By: #### CBCKennedy, MIGUEL ÁNGEL, 3040-3, 31712-3, LIVR #### [facility] ([id number]) [address] [place] [address] 04659Lxxdhaixzlj/100 WBC (Bld)11.8 %NormalKettering Health Preble Comment on above:Performed By: #### CBCA, BMP, 3040-3, 04824-9, LIVR #### [facility] ([id number]) [address] [place] [address] 24150XLV (RBC) [Entitic mass]31.0 eoSdjdxu47-82YueRyainjKettering Health PrebleComment on above:Performed By: #### CBCA, BMP, 3040-3, 81260-2, LIVR #### [facility] ([id number]) [address] [place] [address] 34859LIUK (RBC) [Mass/Vol]34.2 g/cRCpmllr67-52CiqVllbkl [facility] HospitalComment on above:Performed By: #### CBCA, BMP, 3040-3, 99772-4, LIVR #### [facility] ([id number]) [address] [place] [address] 90202QPL (RBC) [Entitic vol]91 xJGytlbu17-112CszIaxxfb [facility]remont HospitalComment on above:Performed By: #### CBCA, BMP, 3040-3, 70208-0, LIVR #### [facility] ([id number]) [address] [place] [address] 65763Rzvzpodwo (Bld) [#/Vol]0.5 10*3/uLNormal0-0.9[facility] Health PrebleComment on above:Performed By: #### CBCA, BMP, 3040-3, 17783-1, LIVR #### [facility] ([id number]) [address] [place] [address] 98078Hvvviuuwr/100 WBC (Bld)6.2 %[facility] Comment on above:Performed By: #### CBCA, BMP, 3040-3, 02379-8, LIVR #### [facility] ([id number]) [address] [place] [address] 84137Fdgtwftnysn/100 WBC (Bld)80.3 %[facility] Comment on above:Performed By: #### CBCA, BMP, 3040-3, 94547-0, LIVR #### [facility] ([id number]) [address] [place] [address] 02880Ddrxzskn mean volume (Bld) [Entitic vol]7.6 fLNormal7-12 [facility] PrebleComment on above:Performed By: #### CBCA, BMP, 3040-3, 27311-1, LIVR #### [facility] ([id number]) [address] [place] [address] 62052Bvgjlykgd (Bld) [#/Vol]236 10*3/oCZnxdna885-106XsmTavees [facility] HospitalComment on above:Performed By: #### MIGUEL ÁNGEL MCBRIDE, 3040-3, 34592-7, LIVR #### [facility] ([id number]) [address] [place] [address] 31317HBZ COUNT4.25 X10E12/LNormal3.80-5.20[facility] Comment on above:Performed By: #### MIGUEL ÁNGEL MCBRIDE, 3040-3, 97589-9, LIVR #### [facility] ([id number]) [address] [place] [address] 95689FRK (Bld) [#/Vol]8.9 10*3/uLNormal4.0-11.0ProStephens Memorial HospitalComment on above:Performed By: #### MIGUEL ÁNGEL MCBRIDE, 3040-3, 26246-9, LIVR #### [facility] ([id number]) [address] [place] [address] 24040ZOWRQByj 25-84-8418Mnpjjl [Catalytic activity/Vol]41 U/LHigh 17-40ProStephens Memorial HospitalComment on above:Performed By: #### MIGUEL ÁNGEL MCBRIDE, 3040-3, 47116-7, LIVR #### [facility] ([id number]) [address] [place] [address] 76926HKBFZ PANELon 00-06-9518Ogsuyos [Mass/Vol]4.4 g/dLNormal3.2-5.3 [facility] Health PrebleComment on above:Performed By: #### MIGUEL ÁNGEL MCBRIDE, 3040-3, 00128-2, LIVR #### [facility] ([id number]) [address] [place] [address] 61075KAQ [Catalytic activity/Vol]96 U/BOkwsil18-838JumJdzzcdStephens Memorial HospitalComment on above:Performed By: #### RAE, MIGUEL ÁNGEL, 3040-3, 79557-3, LIVR #### [facility] ([id number]) [address] [place] [address] 27824FCV [Catalytic activity/Vol]52 U/LHigh0-31POhioHealth Berger HospitalComment on above:Performed By: #### RAE, MIGUEL ÁNGEL, 3040-3, 26838-0, LIVR #### [facility] ([id number]) [address] [place] [address] 11973VGZ [Catalytic activity/Vol]54 U/LHigh0-41ProStephens Memorial HospitalComment on above:Performed By: #### RAE, MIGUEL ÁNGEL, 3040-3, 38114-1, LIVR #### [facility] ([id number]) [address] [place] [address] 89311Hiujdtqwp [Mass/Vol]0.8 mg/dLNormal0.3-1.2POhioHealth Berger HospitalComment on above:Performed By: #### MIGUEL ÁNGEL MCBRIDE, 3040-3, 85271-3, LIVR #### [facility] ([id number]) [address] [place] [address] 80618Boxhtpqxa.direct [Mass/Vol]0.1 mg/dLNormal0.0-0.4ProStephens Memorial HospitalComment on above:Performed By: #### RAE, BMP, 3040-3, 43003-2, LIVR #### [facility] ([id number]) [address] [place] [address] 73888Veehofv [Mass/Vol]7.9 g/dLNormal6.0-8.0ProStephens Memorial HospitalComment on above:Performed By: #### RAE, BMP, 3040-3, 25569-3, LIVR #### [facility] ([id number]) [address] [place] [address], [place] [address]Zuhcowa (P brandon) [Moles/Vol]on 27-48-4018WRCTBMG W/REFLEX1.5 mmol/LNormal0.4-2.0Pro[facility] Hi-Desert Medical CenterComment on above:Result Comment: Result did not trigger repeat Lactate, re-order if needed.Performed By: #### CBCA, BMP, 3040-3, 99635-5, LIVR #### [facility] ([id number]) [address] [facility], [place], [place] [address]Vhybqmcl reticulocyte counton 22-13-7710Slxvuelvsabck (Bld) [#/Vol]0.06118 10*3/uL0.018-0.100[facility] Charles HospitalBasophils Auto (Bld) [#/Vol]on 19-90-6307Knsywxhko (Bld) [#/Vol]0.07 10*3/uL<0.11[facility] HospitalBasophils/100 WBC Auto (Bld)on 62-36-0706Flbupcdir/100 WBC (Bld)0.8 %[facility] HospitalBlood manual differential comment interpretation narrativeon 96-32-2453Oaedxy differential comment Alec (Bld) [Interp]AutoMercy Health St. Charles HospitalEosinophils/100 WBC Auto (Bld)on 86-46-4688Vrfqqjsaolz/100 WBC (Bld)2.4 %[facility] Erythrocyte distribution width Auto (RBC) [Ratio]on 38-32-6823Vtxpfgevjen distribution width (RBC) [Ratio]12.9 %11.5-15.0[facility] Hematocrit Auto (Bld) [Volume fraction]on 25-43-8256Hatpuzcsii (Bld) [Volume fraction]40.0 %36.0-46.0[facility] HospitalHemoglobin [Mass/volume] in Bloodon 72-39-0609Ofnrpdubke (Bld) [Mass/Vol]13.5 g/dL11.5-15.[address] [facility] HospitalIron binding capacity [Mass/volume] in Serum or Plasmaon 27-52-9790Hbzk binding capacity [Mass/Vol]351 ug/tZ841-466EndebzzzgMercy Health St. Charles HospitalIron saturation [Mass Fraction] in Serum or Plasmaon 52-41-9603Tlyo saturation [Mass fraction]16.8 %15.0-57.0[facility] HospitalLaboratory - Chemistry and Chemistry - challengeon 07-07-2023 Albumin [Mass/Vol]4.4 g/dL3.9-4.9[facility] HospitalALP [Catalytic activity/Vol]117 U/V08-855AvsmiyzesMercy Health St. Charles HospitalALT [Catalytic activity/Vol]89 U/L7-38[facility] HospitalAST [Catalytic activity/Vol]87 U/U27-51UttjapafvMercy Health St. Charles HospitalBilirubin [Mass/Vol]0.4 mg/dL0.2-1.3FMercy Health St. Elizabeth Boardman HospitalCalcium [Mass/Vol]9.4 mg/dL 8.5-10.2FMercy Health St. Elizabeth Boardman HospitalChloride [Moles/Vol]102 mmol/L97-[address] [facility] HospitalCO2 [Moles/Vol]23 mmol/V37-97KxdrqhlkeMercy Health St. Charles HospitalCobalamin (Vitamin B12) [Mass/Vol]599 pg/mC053-7555HbvbkvprtMercy Health St. Charles HospitalCreatinine [Mass/Vol]0.81 mg/dL0.58-0.96[facility] HospitalFerritin [Mass/Vol]267.0 ng/mL14.7-205.1FMercy Health St. Elizabeth Boardman HospitalGlucose [Mass/Vol]144 mg/oZ08-49EylwtwnhqMercy Health St. Charles HospitalComment on above:The [place] [employer] (ADA) provides guidance for cutoff values for fasting glucose andrandom glucose. The ADA defines fasting as no caloric intake for at least 8 hours. Fasting plasma gl ucose results between 100 to 125 mg/dL indicate increased risk for diabetes (prediabetes).Fasting plasma glucose results greater than or equal to 126 mg/dL meet the criteria for diagnosis of diabetes. In the absence of unequivocal hyperglycemia, results should be confirmed by repeat testing. In a patient with classic symptoms of hyperglycemia or hyperglycemic crisis, random plasma glucose resultsgreater than or equal to 200 mg/dL meet the criteria for diagnosis of diabetes.Reference: [employer] Diabetes 2016, [place] [employer]. Diabetes Care. 2016.39(Suppl 1).Iron [Mass/Vol]59 ug/eR37-[address] [facility] HospitalPotassium [Moles/Vol]4.1 mmol/L3.7-5.1FMercy Health St. Elizabeth Boardman HospitalProtein [Mass/Vol]7.3 g/dL6.3-8.0[facility] Hospitalodium [Moles/Vol]137 mmol/Q693-762AotqwsbiwMercy Health St. Charles HospitalUrea nitrogen [Mass/Vol]15 mg/dL7-21[facility] - Hematology and Cell countson 52-56-3336Vzraoufkyvz (Bld) [#/Vol] 0.22 10*3/uL<0.46[facility] HospitalImmature granulocytes/100 WBC (Bld)0.2 %[facility] [facility] HospitalLeukocytes [#/volume] corrected for nucleated erythrocytes in Blood by Automated counon 60-34-4702ROP corrected for nucl RBC Auto (Bld) [#/Vol]9.13 k/uL3.70-11.00[facility] Lymphocytes Auto (Bld) [#/Vol]on 96-68-8422Xnhesqwxmzj (Bld) [#/Vol]2.16 10*3/uL 1.00-4.00[facility] HospitalLymphocytes/100 WBC Auto (Bld)on 75-51-6438Ccciixzhbkz/100 WBC (Bld)23.7 %[facility] HospitalMCH Auto (RBC) [Entitic mass]on 92-14-3378DZQ (RBC) [Entitic mass]30.4 pg26.0-34.[address] [facility] HospitalMCHC Auto (RBC) [Mass/Vol]on 01-81-2914JKTN (RBC) [Mass/Vol]33.8 g/dL30.5-36.0[facility] HospitalMCV Auto (RBC) [Entitic vol]on 38-78-6314PPY (RBC) [Entitic vol]90.1 fL80.0-100.[address] [facility] HospitalMonocytes Auto (Bld) [#/Vol]on 07-07-2023 Monocytes (Bld) [#/Vol]0.63 10*3/uL<0.87[facility] Monocytes/100 WBC Auto (Bld)on 17-30-1051Dfnbxqozn/100 WBC (Bld)6.9 %[facility] HospitalNeutrophils Auto (Bld) [#/Vol]on 71-87-0344Ydspyoxetrm (Bld) [#/Vol]6.03 10*3/uL1.45-7.50[facility] Neutrophils/100 WBC Auto (Bld)on 00-23-3324Bdruilkrcso/100 WBC (Bld)66.0 % [facility] HospitalNo Panel Informationon 39-26-8726Uzoofsmjc GFR (CKD-EPI)84 mL/min/1.73m???>=60[facility] HospitalComment on above:Estimated Glomerular Filtration Rate (eGFR) is calculated using the 2020 CKD-EPI creatinine equation. This equation utilizes serum creatinine, sex, and age as parameters. The creatinine assay has traceable calibration to isotope dilution-mass spectrometry. Refer to KDIGO guidelines for clinical inte rpretation. In patients with unstable renal function, e.g. those with acute kidney injury, the eGFRmay not accurately reflect actual GFR.Hvdukm64.1 ng/mL >4.7FMercy Health St. Elizabeth Boardman HospitalImmature Granulocyte # (Auto)<0.03 k/uL <0.10[facility] HospitalNucleated RBC Auto (Bld) [#/Vol]on 84-91-4813Xrfmxnvmt RBC (Bld) [#/Vol]10*3/uL<0.01[facility] HospitalNucleated erythrocytes [Presence] in Blood by Automated counton 07-07-2023 Nucleated RBC Auto Ql (Bld)0.0 /100{WBC}[facility] Platelet mean volume Auto (Bld) [Entitic vol]on 30-68-2303Rmrfbrhy mean volume (Bld) [Entitic vol]9.5 fL9.0-12.7FMercy Health St. Elizabeth Boardman HospitalPlatelets Auto (Bld) [#/Vol]on 75-24-4802Fyhckjcvk (Bld) [#/Vol]237 10*3/yC864-126GsfbxfbqtMercy Health St. Charles HospitalRBC Auto (Bld) [#/Vol]on 39-29-8883MVD (Bld) [#/Vol]4.44 10*6/uL3.90-5.20[facility] HospitalReticulocytes/100 RBC Auto (Bld)on 97-95-2396Kbsbcnycjrcgj/100 RBC (Bld)1.4 %0.4-2.0Flower Hospitalerum or plasma anion gap determinationon 95-27-6708Dwohg gap [Moles/Vol]12 mmol/L9-18FMercy Health St. Elizabeth Boardman HospitalActivated partial thromboplastin time (aPTT) in platelet poor plasma by coagulation aOrdered By: Haresh Middleton on 08-87-1703tIHF Coag (PPP) [Time]27.3 s25.1-36.5FMercy Health St. Elizabeth Boardman HospitalComment on above:A hematocrit value greater than 55% may lead to inaccurate results in coagulation testing. Patientshaving hematocrit values >55% require a special collection tube for coagulation studies. Please c ontact the laboratory at [phone] for redraw instructions.Basophils Auto (Bld) [#/Vol]Ordered By: Haresh Middleton on 47-32-0662Feitiopeb (Bld) [#/Vol]0.1 10*3/uL0.0-0.2FMercy Health St. Elizabeth Boardman HospitalBasophils/100 WBC Auto (Bld) Ordered By: Haresh Middleton on 76-26-0229Ltlijwjpf/100 WBC (Bld)0.6 %.[facility] HospitalCarbon dioxide, total [Moles/volume] in Serum or Plasma Ordered By: Haresh Middleton on 84-58-0879YT1 [Moles/Vol]26.2 mmol/L21.0-31.[address] [facility] HospitalChloride [Moles/volume] in Serum or Plasma Ordered By: Haresh Middleton on 63-30-7585Sgiedprq [Moles/Vol]105 mmol/L98-[address] [facility] HospitalCholesterol [Mass/volume] in Serum or Plasma Ordered By: Haresh Middleton on 76-41-1167Sxkuyycucba [Mass/Vol]134 mg/kB939-[address] [facility] HospitalComment on above:Chol less than 200 mg/dl low riskChol 201-239 mg/dl borderline riskChol 240 mg/dl and greater high risk Cholesterol in LDL Calc [Mass/Vol]Ordered By: Haresh Middleton on 07-06-2023 Cholesterol in LDL [Mass/Vol]75 mg/dL0-100[facility] Comment on above:LDL ATP III CLASSIFICATIONLDL less than 100 mg/dL OptimalLDL 100-129 mg/dL Near or above wqouheaYOB246-064 mg/dL Borderline highLDL 160-189 mg/dL HighLDL greater than 189 mg/dL Very highCholesterol in VLDL Calc [Mass/Vol]Ordered By: Haresh Middleton on 47-62-9335Pvdacuxmvho in VLDL [Mass/Vol] 27 mg/dLMercy Health [address] Charles HospitalCreatinine [Mass/volume] in Serum or PlasmaOrdered By: Haresh Middleton on 21-68-8775Rmzzyndggt [Mass/Vol]0.76 mg/dL 0.60-1.20[facility] HospitalEosinophils Auto (Bld) [#/Vol]Ordered By: Haresh Middleton on 47-83-2885Zttnqdboivy (Bld) [#/Vol]0.2 10*3/uL0.0-0.[address] [facility] HospitalEosinophils/100 WBC Auto (Bld)Ordered By: Haresh Middleton on 69-79-4927Ppipgxffedj/100 WBC (Bld)2.3 %.[facility] HospitalErythrocyte distribution width Auto (RBC) [Ratio]Ordered By: Haresh Middleton on 24-04-1605Fmgoartwmtf distribution width (RBC) [Ratio]13.3 % 11.9-15.3FMercy Health St. Elizabeth Boardman HospitalHematocrit Auto (Bld) [Volume fraction]Ordered By: Haresh Middleton on 57-44-3670Alougauqeb (Bld) [Volume fraction]38.7 %34.0-46.4FMercy Health St. Elizabeth Boardman HospitalHemoglobin [Mass/volume] in BloodOrdered By: Haresh Middleton on 05-74-5625Iwikoqgypk (Bld) [Mass/Vol]13.2 g/dL11.8-15.4FMercy Health St. Elizabeth Boardman HospitalINR in Platelet poor plasma by Coagulation assayOrdered By: Haresh Middleton on 86-17-7677SHL Coag (PPP) [Relative time]1.0 {INR}[facility] HospitalComment on above:INR Therapeutic Range A) Pre- and Peroperative OAT started two weeks before surgery. NOT HIP SURGERY: 1.5 - 2.5 HIP SURGERY: 2 - 3B) Primary and secondary prevention of venous THROMBOSIS: 2 - 3C) Active venous thrombosis, pulmonary embolismand prevention of recurrent venous thrombosis: 2 - 3D) Preve ntion of arterial thromboembolismincluding patients with mechanical heart valves: 3 - 4.5Leukocytes [#/volume] corrected for nucleated erythrocytes in Blood by Automated counOrdered By: Haresh Middleton on 74-44-4316MIA corrected for nucl RBC Auto (Bld) [#/Vol]8.1 10*3/uL3.8-11.6FMercy Health St. [facility] Hospital Lymphocytes Auto (Bld) [#/Vol]Ordered By: Haresh Middleton on 07-06-2023 Lymphocytes (Bld) [#/Vol]2.3 10*3/uL1.00-4.8[facility] Lymphocytes/100 WBC Auto (Bld)Ordered By: Haresh Middleton on 07-06-2023 Lymphocytes/100 WBC (Bld)28.1 %.[facility] Auto (RBC) [Entitic mass]Ordered By: Haresh Middleton on 75-78-1838WDD (RBC) [Entitic mass] 30.6 pg24.7-34.3FHolzer HospitalHC Auto (RBC) [Mass/Vol] Ordered By: Haresh Middleton on 87-95-5864LGIV (RBC) [Mass/Vol]34.0 g/dL32.0-35.[address] [facility] HospitalMCV Auto (RBC) [Entitic vol]Ordered By: Haresh Middleton on 84-48-4054NLK (RBC) [Entitic vol]89.9 eQ90-151WyrkvjjohMercy Health St. Charles HospitalMonocytes Auto (Bld) [#/Vol]Ordered By: Haresh Middleton on 28-99-8286Qgnicikke (Bld) [#/Vol]0.8 10*3/uL0.0-0.8[facility] HospitalMonocytes/100 WBC Auto (Bld)Ordered By: Haresh Middleton on 07-06-2023 Monocytes/100 WBC (Bld)9.6 %.[facility] HospitalNeutrophils Auto (Bld) [#/Vol]Ordered By: Haresh Middleton on 99-15-4822Ayxcgglhbgb (Bld) [#/Vol] 4.8 10*3/uL1.8-7.7FMercy Health St. Elizabeth Boardman HospitalNeutrophils/100 WBC Auto (Bld)Ordered By: Haresh Middleton on 63-98-8260Svyzsqvwjhh/100 WBC (Bld)59.4 %. [facility] HospitalNo Panel InformationOrdered By: Haresh Middleton on 43-62-8708Mfmwllcwr GFR (CKD-EPI)> 60.0 mL/MinMercy Health St. Charles HospitalPharmacy Creatinine Clearance (ChemN/AFMercy Health St. [facility] Nucleated erythrocytes [Presence] in Blood by Automated countOrdered By: Haresh Middleton on 78-27-6937Sdohixwgq RBC Auto Ql (Bld)0.1 /100{WBC}0-0.5FMercy Health St. Elizabeth Boardman HospitalPlatelet mean volume Auto (Bld) [Entitic vol]Ordered By: Haresh Middleton on 52-76-4539Rfzwylbg mean volume (Bld) [Entitic vol]7.8 fL 6.3-10.7FMercy Health St. Elizabeth Boardman HospitalPlatelets Auto (Bld) [#/Vol]Ordered By: Haresh Middleton on 71-48-7257Yhcosdixx (Bld) [#/Vol]224 10*3/aL402-777EjysddskjMercy Health St. Charles HospitalPotassium [Moles/volume] in Serum or PlasmaOrdered By: Haresh Middleton on 03-82-9328Lslnukyzr [Moles/Vol]4.3 mmol/L3.5-5.1FMercy Health St. Elizabeth Boardman HospitalProthrombin time (PT)Ordered By: Haresh Middleton on 05-75-6843BM Coag (PPP) [Time]11.3 s9.0-12.9[facility] Comment on above:A hematocrit value greater than 55% may lead to inaccurate results in coagulation testing. Patientshaving hematocrit values >55% require a special collection tube for coagulation studies. Please contact the laboratory at [phone] for redraw instructions.RBC Auto (Bld) [#/Vol]Ordered By: Haresh Middleton on 09-69-7922PSZ (Bld) [#/Vol]4.31 10*6/uL3.60-5.00Flower Hospitalerum or plasma anion gap determinationOrdered By: Haresh Middleton on 11-96-4339Hstws gap [Moles/Vol]12.1 mmol/L6.0-15.0Flower Hospitalerum or plasma high density lipoprotein (HDL) cholesterol measurement Ordered By: Haresh Middleton on 84-16-8205Hmchwlooktu in HDL [Mass/Vol]31 mg/dL 23-92[facility] HospitalComment on above:HDL CHOL ATP-III CLASSIFICATION Cardiovascular RiskHDL > or equal to 60 mg/dL LOWHDL < 40 mg/dL HIGHSerum or plasma total cholesterol/high density lipoprotein (HDL) cholesterol mass ratOrdered By: Haresh Middleton on 55-84-3965Oucvpxdbwjp.total/Cholesterol in HDL [Mass ratio]4.3 {ratio}<5.0Flower Hospitalodium [Moles/volume] in Serum or PlasmaOrdered By: Haresh Middleton on 81-90-0646Hxanaj [Moles/Vol]139 mmol/T939-343PcmbyfwaxMercy Health St. Charles HospitalTriglyceride [Mass/volume] in Serum or PlasmaOrdered By: Haresh Middleton on 07-06-2023 Triglyceride [Mass/Vol]138 mg/dL0-149[facility] HospitalComment on above:TRIG ATP III CLASSIFICATIONTRIG less than 150 mg/dL NormalTRIG 150-199 mg/dL Borderline highTRIG 200-500 mg/dL High TRIG greater than 500 mg/dL Very highStandard traceable to the Center for Disease Conrtrol and Prevention (CDC) test method.Urea nitrogen [Mass/volume] in Serum or PlasmaOrdered By: Haresh Middleton on 38-75-7208Hnzh nitrogen [Mass/Vol]14 mg/dL7-25[facility] HospitalWBC Auto (Bld) [#/Vol]Ordered By: Haresh Middleton on 00-96-4326UIJ (Bld) [#/Vol]8.1 10*3/uL3.8-11.6FMercy Health St. Elizabeth Boardman HospitalThyrotropin [Units/volume] in Serum or PlasmaOrdered By: Haresh Middleton on 35-49-7896PQH Qn 4.12 m[IU]/L0.45-5.33[facility] HospitalThyroxine (T4) free [Mass/volume] in Serum or PlasmaOrdered By: Haresh Middleton on 17-53-4368Twrj T4 [Mass/Vol]0.79 ng/dL0.61-1.12[facility] HospitalNo Panel Informationon 39-08-1288AIJMCenterPointe Hospital W Auto Differential panel (Bld)on 35-74-1188Qtswljavf (Bld) [#/Vol]0.05 10*3/uL<0.11 k/uLBarney Children'S Medical Center Basophils/100 WBC (Bld)0.7 %[facility] CenterDifferential cell count method Nom (Bld)AutoCleveland ClinicEosinophils (Bld) [#/Vol]0.32 10*3/uL<0.46 k/uL MelendezSelect Medical Specialty Hospital - AkronEosinophils/100 WBC (Bld)4.5 %[facility] Medical CenterErythrocyte distribution width (RBC) [Ratio]14.9 %11.5 - 15.0 %[facility] Medical CenterHematocrit (Bld) [Volume fraction]34.4 %Low36.0 - 46.0 %[facility] CenterHemoglobin (Bld) [Mass/Vol]10.8 g/dLLow11.5 - 15.5 g/dLBarney Children'S Medical CenterImmature granulocytes (Bld) [#/Vol]<0.10 k/uLCleSelect Medical Specialty Hospital - AkronImmature granulocytes/100 WBC (Bld)0.1 % [facility] Medical CenterLymphocytes (Bld) [#/Vol]2.09 10*3/uL1.00 - 4.00 k/uLCleSelect Medical Specialty Hospital - AkronLymphocytes/100 WBC (Bld)29.7 %[facility] HospitalH (RBC) [Entitic mass] 26.3 pg26.0 - 34.0 pgCParkwood HospitalHC (RBC) [Mass/Vol]31.4 g/dL30.5 - 36.0 g/dLBarney Children'S Medical CenterMCV (RBC) [Entitic vol]83.9 fL80.0 - 100.0 fLCleveland ClinicMonocytes (Bld) [#/Vol]0.73 10*3/uL<0.87 k/uLGarland City ClinicMonocytes/100 WBC (Bld)10.4 %[facility] City ClinicNeutrophils (Bld) [#/Vol]3.84 10*3/uL1.45 - 7.50 k/uLGarland City ClinicNeutrophils/100 WBC (Bld)54.6 %[facility] Medical CenterNucleated RBC (Bld) [#/Vol]<0.01 k/uLBarney Children'S Medical CenterNucleated RBC/100 WBC (Bld) [Ratio] 0.0 /100 WBCGarland City ClinicPlatelet mean volume (Bld) [Entitic vol]9.8 fL9.0 - 12.7 fLCleveland ClinicPlatelets (Bld) [#/Vol]203 10*3/uL150 - 400 k/uLGarland City ClinicRBC (Bld) [#/Vol]4.10 10*6/uL3.90 - 5.20 m/uLGarland City ClinicWBC (Bld) [#/Vol]7.04 10*3/uL3.70 - 11.00 k/uLBarney Children'S Medical CenterComprehensive metabolic 2000 panelon 08-55-1452Yehmrxp [Mass/Vol]4.4 g/dL3.9 - 4.9 g/dLGarland City ClinicALP [Catalytic activity/Vol]104 U/L34 - 123 U/LCleveland ClinicALT [Catalytic activity/Vol]39 U/LHigh7 - 38 U/LCleveland ClinicAnion gap [Moles/Vol]11 mmol/L9 - 18 mmol/LCleveland ClinicAST [Catalytic activity/Vol]46 U/LHigh13 - 35 U/L [facility] CenterBilirubin [Mass/Vol]0.2 mg/dL0.2 - 1.3 mg/dLBarney Children'S Medical Center Calcium [Mass/Vol]9.5 mg/dL8.5 - 10.2 mg/dLGarland City ClinicChloride [Moles/Vol] 102 mmol/L97 - 105 mmol/LCleveland ClinicCO2 [Moles/Vol]28 mmol/L22 - 30 mmol/L [facility] CenterCreatinine [Mass/Vol]0.87 mg/dL0.58 - 0.96 mg/dLBarney Children'S Medical Center Estimated Glomerular Filtration Rate77 mL/min/1.73m>=60 mL/min/1.73mCleveland ClinicGlucose [Mass/Vol]133 mg/dKIopu10 - 99 mg/dLBarney Children'S Medical CenterPotassium [Moles/Vol]4.3 mmol/L3.7 - 5.1 mmol/LCleveladventhealth ClinicProtein [Mass/Vol]7.0 g/dL 6.3 - 8.0 g/dLPomerene Hospitalodium [Moles/Vol]141 mmol/L136 - 144 mmol/L [facility] CenterUrea nitrogen [Mass/Vol]18 mg/dL7 - 21 mg/dLBarney Children'S Medical Center FERRITIN BLDon 11-83-4676Oryvotfh [Mass/Vol]17.7 ng/mL14.7 - 205.1 ng/mL [facility] Medical CenterFOLATE SERUMon 41-00-3914Wkjdvc [Mass/Vol]14.0 ng/mL>4.7 ng/mL [facility] CenterIron and Iron binding capacity panelon 38-35-4590Hzfv [Mass/Vol] 31 ug/dLLow41 - 186 ug/dLBarney Children'S Medical CenterIron binding capacity [Mass/Vol]433 ug/pVEcrk127 - 386 ug/dLBarney Children'S Medical CenterIron/TIBC [Molar ratio]7.2 %Low15.0 - 57.0 %[facility] CenterRETIC COUNTon 94-26-8832Onuddifpyxrry (Bld) [#/Vol]0.50430 10*3/uL0.018 - 0.100 M/uLBarney Children'S Medical CenterReticulocytes (Bld) [#/Vol]on 03-75-8803Khpfysrzgnjnl/100 RBC (Bld)1.0 %0.4 - 2.0 %[facility]S Medical CenterVITAMIN B12 BLOODon 06-71-7959Hlltszvxc (Vitamin B12) [Mass/Vol]442 pg/mL232 - 1,245 pg/mL [facility] CenterCB AUTO DIFFon 12-94-5002KOXL #0.1 103/ulNormal0.0-0.1C[facility] Va Medical CenterComment on above:Performed By: #### CBC ####[facility] H[address]znxoj[address] [place], [place] [address]Dr.Be ChangBasophils/100 WBC (Bld)1.0 %Normal0.2-2.0The [facility] HospitalComment on above:Performed By: #### CBC ####[facility] Tmolcktdks[address] [place], [place] [address]Dr.Yilan ChangEO #0.3 103/ulNormal0.0-0.7The [facility] HospitalComment on above:Performed By: #### CBC ####[facility] Sobixickzq[address] [place], [place] [address]Dr.Nolan ChangEosinophils/100 WBC (Bld)3.9 %Normal 0.9-7.0The [facility] HospitalComment on above:Performed By: #### CBC ####[facility] Exxzutoorl[address] [place], [place] [address]Dr.Be Matt Erythrocyte distribution width (RBC) [Ratio]14.0 %Gbkuof91.0-15.0The [facility] HospitalComment on above:Performed By: #### CBC ####[facility] Ghkmtxdcoi[address] [place], [place] [address]Dr.Be ChangHematocrit (Bld) [Volume fraction]35.5 %Critically low36.0-48.0The [facility] HospitalComment on above:Performed By: #### CBC ####[facility] Qcosqfitwx[address] [place], [place] [address]Dr.Be ChangHemoglobin (Bld) [Mass/Vol]11.0 g/dL Critically low12.0-16.0The [facility] HospitalComment on above:Performed By: #### CBC ####[facility] Zwrxkvrazl[address] [place], [place] [address]Dr. Be ChangIG #0.01 10e3/ulNormal0.00-0.03The [facility] HospitalComment on above: Performed By: #### CBC ####[facility] Djrtxycdmd[address] [place], [place] [address]Dr.Yilan ChangIG %0.1 %Normal0.0-0.5The [facility] HospitalComment on above:Performed By: #### CBC ####[facility] Nricrviroa[address] [place], [place] [address]Dr.Be ShakaCARILION ST[facility] #2.2 103/ulNormal1.2-3.8The [facility] HospitalComment on above:Performed By: #### CBC ####[facility] Pcmcjypjzw[address] [place], [place] [address]Dr. Be Anuphocytes/100 WBC (Bld)27.9 %Uxjmxf86.5-60.0The [facility] Comment on above:Performed By: #### CBC ####[facility] Rlsoytfurc[address] [place], [place] [address]Dr.Be MattMANUAL DIFF REQNONormalThe [facility] HospitalComment on above:Performed By: #### CBC ####[facility] Jsauunmolg[address] [place], [place] [address]Dr.Nodamaso MattGLEN COVE [facility] (RBC) [Entitic mass]25.3 pgCritically low26.7-34.0The [facility] HospitalComment on above:Performed By: #### CBC ####[facility] Aqvzlafzbq24[address] [place], [place] [address]Dr.Nodamaso MattBLYTHEDALE [facility] (RBC) [Mass/Vol]31.0 g/dLNormal 29.9-35.2The [facility] HospitalComment on above:Performed By: #### CBC ####[facility] Daxwdplnor[address] [place], [place] [address]Dr. Nodamaso MattV (RBC) [Entitic vol]81.8 cQKunfmw04.0-99.0The [facility] Comment on above:Performed By: #### CBC ####[facility] Jscwnjwlwm[address] [place], [place] [address]DrPolina AndersonO #0.6 103/ulNormal0.3-0.8 The [facility] HospitalComment on above:Performed By: #### CBC ####[facility] Zxzkqoytoj[address] [place], [place] [address]Dr.Be Matt Monocytes/100 WBC (Bld)7.8 %Normal1.7-12.0The [facility] HospitalComment on above: Performed By: #### CBC ####[facility] [address] [address]Dr.Be MattNEUT #4.7 103/ulNormal1.4-6.5The [facility] HospitalComment on above:Performed By: #### CBC ####[facility] Liznatetqc[address] [place], [place] [address]Dr.Be MattNeutrophils/100 WBC (Bld)59.3 %Rmelow19.0-75.0The [facility] HospitalComment on above:Performed By: #### CBC ####[facility] Etlmjgegte[address] [place], [place] [address]Dr.Be MattPlatelet mean volume (Bld) [Entitic vol]9.8 fLNormal9.5-13.5 The [facility] HospitalComment on above:Performed By: #### CBC ####[facility] Krwqvzusca[address] [place], [place] [address]Dr.Be SpacaWYZ053 103/ogNclyss347-516Xkq The [facility] HospitalComment on above:Performed By: #### CBC ####[facility] Lqvpglkhzm[address] [place], [place] [address]Dr. Be ChangRBC4.34 106/ulNormal4.20-5.40The [facility] HospitalComment on above: Performed By: #### CBC ####[facility] Ikcoijypug[address] [place], [place] [address]Dr.Be ChangWBC8.0 103/ulNormal4.0-11.0The The [facility] HospitalComment on above:Performed By: #### CBC ####[facility] Klu[address]nowjz[address] [place], [place] [address]Dr.Be ChangFREE T4on 39-35-0761Sjxi T4 [Mass/Vol]0.85 ng/dLNormal0.76-1.46The [facility] Comment on above:Performed By: #### FT4 #### [facility] [address] [address] [address] Be MattGLYCOHEMOGLOBIN A1Con 11-62-6071GMR RECOMMENDATIONSEE BELOWSt. Vincent HospitalComselect specialty hospital[facility] on above:Result Comment: ADA RECOMMENDED LIMIT 4.0 - 6.0 ADA THERAPEUTIC TARGET < 7.0 ACTION SUGGESTED > 7.0Performed By: #### A1C #### [facility] [address] [place] [address] Dr. Be MattGlucose [Mass/Vol]143 mg/dLNoMetroHealth Main Campus Medical CenterComment on above:Performed By: #### A1C #### [facility] [address] [place] [address] Dr. Be MattHbA1c (Bld) [Mass fraction]6.6 %Critically high4.5-6.2C[facility] Va Medical CenterComment on above:Performed By: #### A1C #### [facility] [address] [place] [address] Dr. Be MattLIPID PROFILEon 09-04-9216XGCM-HDL RATIO NORMSEE [facility] NorthComselect specialty hospital-[facility] on above:Result Comment: 3.3 - 4.4 LOW RISK 4.4 - 7.1 AVERAGE RISK 7.1 - 11.0 MODERATE RISK >11.0 HIGH RISKPerformed By: #### TSH, LIPID, CMP #### [facility] [address] [place] [address] Dr. Be MattCholesterol [Mass/Vol]198 mg/dLNormal<=200The [facility] Comment on above:Performed By: #### TSH, LIPID, CMP #### [facility] [address] [place] [address] Dr. Be MattCholesterol in HDL [Mass/Vol]43 mg/qWUqlmbn39-46Bzg [facility] on above:Performed By: #### TSH, LIPID, CMP #### [facility] [address] [place] [address] Dr. Be MattCholesterol in LDL [Mass/Vol]108.8 mg/dLNoMetroHealth Main Campus Medical CenterComselect specialty hospital[facility] on above:Performed By: #### TSH, LIPID, CMP #### [facility] [address] [address] [address] Be MattCholesterdorina.total/Cholesterol in HDL [Mass ratio]4.6 {ratio} NormalThe [facility] on above:Performed By: #### TSH, LIPID, CMP #### [facility] [address] [address] [address] Be Alvarenga NORMAL> or = 60 mg/dl - LOW CARDIOVASCULAR RISK <40 mg/dl - HIGH CARDIOVASCULAR RISKSamaritan Hospital on above:Performed By: #### TSH, LIPID, CMP #### [facility] [address] [place] [address] Dr. Be MattLDL CALC NORMALSEE BELOWFisher-Titus Medical CenterComselect specialty hospital[facility] on above:Result Comment: <100 mg/dl OPTIMAL 100 - 129 mg/dl NEAR OR ABOVE OPTIMAL 130 - 159 mg/dl BORDERLINE HIGH 160 - 189 mg/dl HIGH >190 mg/dl VERY HIGH Performed By: #### TSH, LIPID, CMP #### [facility] [address] [address] [address] Be MattTriglyceride [Mass/Vol]231 mg/dLCritically high<=150The [facility] on above:Performed By: #### TSH, LIPID, CMP #### [facility] [address] [place] [address] Dr. Be MattVLDL CALC46.2 mg/dLNoMetroHealth Main Campus Medical CenterComselect specialty hospital[facility] on above: Performed By: #### TSH, LIPID, CMP #### [facility] [address] [address] [address] Be MattPROF 14(COMP METB)on 46-42-3146Yalybxf [Mass/Vol]3.7 g/dLNormal 3.4-5.0The [facility] on above:Performed By: #### TSH, LIPID, CMP #### [facility] [address] [address] [address] Be MattAlbumin/Globulin [Mass ratio]0.9 {ratio}NormalThe The [facility] HospitalComment on above:Performed By: #### TSH, LIPID, CMP #### [facility] [address] [address] [address] Be Goodwin [Catalytic activity/Vol]107 U/IVzkagl31-361Zwi The [facility] HospitalComment on above:Performed By: #### TSH, LIPID, CMP #### [facility] [address] [address] [address] Be Villafana [Catalytic activity/Vol]48 U/XDvwqpr10-56Zxh [facility]Comment on above:Performed By: #### TSH, LIPID, CMP #### [facility] [address] [place] [address] Dr. Be Cantu gap [Moles/Vol]13.7 mmol/LNormalThe [facility] Comment on above:Performed By: #### TSH, LIPID, CMP #### [facility] [address] [place] [address] Dr. Be Coon [Catalytic activity/Vol]46 U/LCritically [id number] [facility]Comment [facility] above:Performed By: #### TSH, LIPID, CMP #### [facility] [address] [place] [address] Dr. Be MattBilirubin [Mass/Vol]0.3 mg/dLNormal0.2-1.0The [facility] Comment on above:Performed By: #### TSH, LIPID, CMP #### [facility] [address] [place] [address] Dr. Be MattCalcium [Mass/Vol]9.6 mg/dLNormal8.5-10.1[facility] Comment on above:Performed By: #### TSH, LIPID, CMP #### [facility] [address] [place] [address] Dr. Be Bourgeoiside [Moles/Vol]103 mmol/PDnngfb75-720Ntb [facility] Comment on above:Performed By: #### TSH, LIPID, CMP #### [facility] [address] [place] [address] Dr. Be MattCO2 [Moles/Vol]27.8 mmol/BWhvhaf66.0-32.0The [facility] Comment on above:Performed By: #### TSH, LIPID, CMP #### [facility] [address] [place] [address] Dr. Be MattCreatinine [Mass/Vol]0.91 mg/dLNormal0.55-1.02The [facility] HospitalComment on above:Performed By: #### TSH, LIPID, CMP #### [facility] [address] [place] [address] Dr. Be BaerGFR-AF MONTENEGRIN>60Normal>=60The [facility] HospitalComment on above:Performed By: #### TSH, LIPID, CMP #### [facility] [address] [place] [address] Dr. Be Angel-NON AF MONTENEGRIN>60Normal>=60The [facility] HospitalComment on above:Performed By: #### TSH, LIPID, CMP #### [facility] [address] [place] [address] Dr. Be MattGlobulin (S) [Mass/Vol]4.2 g/dLNormalThe [facility] HospitalComment on above:Performed By: #### TSH, LIPID, CMP #### [facility] [address] [place] [address] Dr. Be MattGlucose [Mass/Vol]129 mg/dLCritically dibq36-479Azj [facility] HospitalComment on above:Performed By: #### TSH, LIPID, CMP #### [facility] [address] [place] [address] Dr. Be MattPotassium [Moles/Vol]4.5 mmol/LNormal3.5-5.1The [facility] Comment on above:Performed By: #### TSH, LIPID, CMP #### [facility] [address] [place] [address] Dr. Be MattProtein [Mass/Vol]7.9 g/dLNormal6.4-8.2The [facility] Comment on above:Performed By: #### TSH, LIPID, CMP #### [facility] [address] [address] [address] Be MattSodium [Moles/Vol]140 mmol/NZhguvo729-621Ahj [facility] Comment on above:Performed By: #### TSH, LIPID, CMP #### [facility] [address] [address] [address] Be Romero nitrogen [Mass/Vol]15.0 mg/dLNormal7.0-18.0The [facility] HospitalComment on above:Performed By: #### TSH, LIPID, CMP #### [facility] [address] [address] [address] Be Romero nitrogen/Creatinine [Mass ratio]16.5 mg/mgNormalThe [facility] HospitalComment on above:Performed By: #### TSH, LIPID, CMP #### [facility] [address] [address] [address] Be Rosa 59-57-1585BSY2.347 uIU/mLNormal0.358-3.740The [facility] HospitalComment on above:Performed By: #### TSH, LIPID, CMP #### [facility] [address] [address] [address] Be MattMG MAMM SCREEN 3D LIZABETH CADon [id number] MAMM SCREEN 3D LIZABETH CAD Patient: JEANNETTE HURTADO Exam Date: 03/16/2022 : 1965 Gender:F Ordering : DR JONAS SANDERS . Admission #: [id number] Family : Order #: [id number] CLICK HERE TO VIEW EXAM RADIOLOGY REPORT [...] Treatments None Family Cancers None LOCATION: [facility] BREAST COMPOSITION: Scattered areas fibroglandular density. [...] by: Joyce Dunbar MD on 03/17/2022 at 08:20No[facility] AUTO DIFFon [id number] #0.1 103/ulNormal0.0-0.1[facility] CenterComment on above:Performed By: #### CBC #### [facility] [address] [place] [address] Dr. Be MattBasophils/100 WBC (Bld)0.5 %Normal0.2-2.0[facility] Comment on above:Performed By: #### CBC #### [facility] [address] [place] [address] Dr. Be Rodriguez #0.3 103/ulNormal0.0-0.7ThMercy Health St. Elizabeth [facility] HospitalComment on above: Performed By: #### CBC #### [facility] [address] [place] [address] Dr. Be Baerosinophils/100 WBC (Bld)2.7 %Normal0.9-7.0[facility] Comment on above:Performed By: #### CBC #### [facility] [address] [place] [address] Dr. Be Baerrythrocyte distribution width (RBC) [Ratio]13.7 %Uoqgbl59.0-15.0 [facility] CenterComment on above:Performed By: #### CBC #### [facility] [address] [place] [address] Dr. Be MattHematocrit (Bld) [Volume fraction]37.8 %Agghkg69.0-48.0[facility] CenterComment on above:Performed By: #### CBC #### [facility] [address] [place] [address] Dr. Be MattHemoglobin (Bld) [Mass/Vol]11.7 g/dLCritically low12.0-16.0The [facility] HospitalComment on above:Performed By: #### CBC #### [facility] [address] [place] [address] Dr. Be Jamison #0.03 10e3/ulNormal0.00-0.03The [facility] HospitalComment on above:Performed By: #### CBC #### [facility] [address] [place] [address] Dr. Be Jamison %0.3 %Normal0.0-0.5The [facility] HospitalComment on above: Performed By: #### CBC #### [facility] [address] [place] [address] Dr. Be Carlos #2.6 103/ulNormal1.2-3.8The [facility] HospitalComment on above:Performed By: #### CBC #### [facility] [address] [place] [address] Dr. Be Earlhocytes/100 WBC (Bld)23.4 %Lfypxs13.5-60.0The [facility] HospitalComment on above:Performed By: #### CBC #### [facility] [address] [place] [address] Dr. Be CoronelUAL DIFF REQNONormalThe [facility] HospitalComment on above: Performed By: #### CBC #### [facility] [address] [place] [address] Dr. Be Muniz (RBC) [Entitic mass]27.4 qcRgdyyz87.7-34.0The [facility] HospitalComment on above:Performed By: #### CBC #### [facility] [address] [place] [address] Dr. Be Muniz (RBC) [Mass/Vol]31.0 g/kQDrydrl11.9-35.2The [facility] HospitalComment on above:Performed By: #### CBC #### [facility] [address] [place], [place] [address] Dr. Be Sanders (RBC) [Entitic vol]88.5 hPPrzzne02.0-99.0The [facility] HospitalComment on above:Performed By: #### CBC #### [facility] [address] [place] [address] Dr. Be Castillo #0.6 103/ulNormal0.3-0.8The [facility] HospitalComment on above:Performed By: #### CBC #### [facility] [address] [place] [address] Dr. Be Andersonocytes/100 WBC (Bld)5.8 %Normal1.7-12.0The [facility] Comment on above:Performed By: #### CBC #### [facility] [address] [place] [address] Dr. Be Baeza #7.5 103/ulCritically high1.4-6.5The [facility] Comment on above:Performed By: #### CBC #### [facility] [address] [place] [address] Dr. Be Tayutrophils/100 WBC (Bld)67.3 %Smfzvh23.0-75.0The [facility] HospitalComment on above:Performed By: #### CBC #### [facility] [address] [place] [address] Dr. Be Phillipslet mean volume (Bld) [Entitic vol]9.9 fLNormal9.5-13.5The [facility] HospitalComment on above:Performed By: #### CBC #### [facility] [address] [place] [address] Dr. Be MattPLT263 103/fcEisnra343-203Syr [facility] HospitalComment on above: Performed By: #### CBC #### [facility] [address] [place] [address] Dr. Be MattRBC4.27 106/ulNormal4.20-5.40The [facility] HospitalComment on above:Performed By: #### CBC #### [facility] [address] [address] [address] Be MattWBC11.1 103/ulCritically high4.0-11.0The [facility] HospitalComment on above:Performed By: #### CBC #### [facility] [address] [address] [address] Be LainezCOHEMOGLOBIN A1Con 17-30-7920FJJ RECOMMENDATIONSEE BELOWNormal The [facility] HospitalComment on above:Result Comment: ADA RECOMMENDED LIMIT 4.0 - 6.0 ADA THERAPEUTIC TARGET < 7.0 ACTION SUGGESTED > 7.0Performed By: #### A1C ####[facility] [address] [address]Dr. Be MattGlucose [Mass/Vol]137 mg/dLNormalThe [facility] HospitalComment on above:Performed By: #### A1C ####[facility] [address] [address]Dr.Yilan MattHbA1c (Bld) [Mass fraction]6.4 % Critically high4.5-6.2The [facility] HospitalComment on above:Performed By: #### A1C ####[facility] [address] [address]Dr. Be MattPROF CHEM 8 (BAS METB)on 89-51-3124Yyswy gap [Moles/Vol]10.0 mmol/L NormalThe [facility] HospitalComment on above:Performed By: #### BMP, TSH #### [facility] [address] [address] [address] Be MattCalcium [Mass/Vol]8.9 mg/dLNormal8.5-10.1The [facility] Comment on above:Performed By: #### BMP, TSH #### [facility] [address] [address] [address] Be MattChloride [Moles/Vol]103 mmol/CCbhjds83-957Cxb [facility] Comment on above:Performed By: #### BMP, TSH #### [facility] [address] [address] [address] Yilan ChangCO2 [Moles/Vol]29.1 mmol/OScnqte90.0-32.0The [facility] Comment on above:Performed By: #### BMP, TSH #### [facility] [address] [address] [address] Be MattCreatinine [Mass/Vol]0.82 mg/dLNormal0.55-1.02The [facility] HospitalComment on above:Performed By: #### BMP, TSH #### [facility] [address] [address] [address] Be BaerGFR-AF MONTENEGRIN>60Normal>=60The [facility] HospitalComment on above:Performed By: #### BMP, TSH #### [facility] [address] [place] [address] Dr. Be BaerGFR-NON AF MONTENEGRIN>60Normal>=60The [facility] HospitalComment on above:Performed By: #### BMP, TSH #### [facility] [address] [address] [address] eB MattGlucose [Mass/Vol]118 mg/dLCritically bibd88-401Kii [facility] HospitalComment on above:Performed By: #### BMP, TSH #### [facility] [address] [place] [address] Dr. Be MattPotassium [Moles/Vol]4.1 mmol/LNormal3.5-5.1[facility] Comment on above:Performed By: #### BMP, TSH #### [facility] [address] [address] [address] Be MattSodium [Moles/Vol]138 mmol/OEsvbmc807-951Hob [facility] Comment on above:Performed By: #### BMP, TSH #### [facility] [address] [place] [address] Dr. Be MattUrea nitrogen [Mass/Vol]13.0 mg/dLNormal7.0-18.0The [facility] HospitalComment on above:Performed By: #### BMP, TSH #### [facility] [address] [place] [address] Dr. Yilan ChangUrea nitrogen/Creatinine [Mass ratio]15.9 mg/mgNoMetroHealth Main Campus Medical CenterComment on above:Performed By: #### BMP, TSH #### [facility] [address] [place] [address] Dr. Be Rosa 84-91-5228GAE9.473 uIU/mLNormal0.358-3.740[facility] on above:Performed By: #### MIGUEL ÁNGEL, TSH #### [facility] [address] [place] [address] Dr. Be Camacho ACOG PANEL 2: 30 to 65on 01-01-2022..NormalThe [facility] HospitalComselect [facility] on above:Result Comment: Performed at: WBPerformed By: #### [id number] ####[facility] [address] [address]Dr. Be Preston Gdln ACOG Ziolqcn03-98TdsmobDpxMetroHealth Main Campus Medical CenterComment on above:Performed By: #### [id number] ####[facility] [address] [place], [place] [address]DrRadha MattDIAGNOSIS:CommentNoMetroHealth Main Campus Medical CenterComselect specialty hospital[facility] on above:Result Comment: NEGATIVE FOR INTRAEPITHELIAL LESION OR MALIGNANCY. Performed at: WBPerformed By: #### [id number] ####[facility] [address] [address]DrRadha MattHPV AptimaNegativeNormal NegativeCincinnati Va Medical CenterComselect specialty hospital-[facility] on above:Result Comment: This nucleic acid amplification test detects fourteen high-risk HPV types (16,18,31,33,35,39,45,51,52,56,58,59,66,68) without differentiation. Performed at: =GPerformed By: #### [id number] ####[facility] [address] [address]DrRadha MattMethodology:CommentFisher-Titus Medical CenterComselect specialty hospital-[facility] on above:Result Comment: This liquid based ThinPrep(R) pap test was screened with the use of an image guided system. Performed at: WBPerformed By: #### [id number] ####[facility] [address] [address]Dr. Be ShakaNote:CommentSamaritan Hospital on above:Result Comment: The Pap smear is a screening test designed to aid in the detection of premalignant and malignant conditions of the uterine cervix. It is not a diagnostic procedure and should not be used as the sole means of detecting cervical cancer. Both false-positive and false-negative reports do occur. . Performed at: WBPerformed By: #### [id number] ####[facility] [address] [place], [place] [address]Dr. Be MattPerformed by:CommentSamaritan Hospital on above:Result Comment: Pamela [employer] Performed at: WBPerformed By: #### [id number] ####[facility] [address] [place], [place] [address]Dr. Nodamaso MattSpecimen adequacy:Comment [facility] on above:Result Comment: Satisfactory for evaluation. Endocervical and/or squamous metaplastic cells (endocervical component) are present. Performed at: WBPerformed By: #### [id number] ####[facility] [address] [place], [place] [address]Dr. Nodamaso MattFLUOROSCOPY IN OR/PAIN MGTon 94-45-2539ZPVQVYFSVJV IN OR/PAIN MGTFLUOROSCOPY IN OR/PAIN MGT Ordering Physician: Luther Horowitz [...] File ---- Signed By: Harrison Orantes MD [email or web address] Dictated: 03/04/2020 1:37 PM Signed: 03/04/2020 1:37 PM Reported By: HARRISON ORANTES M.D. Signed By: HARRISON ORANTES M.D.[facility]onORon [facility]2020 OPERATIVE REPORTNoAdventist Medical CenterRDATE OF SERVICE: 03/04/2020 PREOPERATIVE DIAGNOSES: 1. Left peroneus brevis tendon [...] metatarsal dorsiflexion osteotomy. SURGEON: Luther Horowitz MD ROUTE DELIVERY SUPERVISOR: None. [facility] PATIENT NAME: JEANNETTE HURTADO [address] MEDICAL REC #: [id number] [place] [address] ADMIT DATE: DISCHARGE DATE: OPERATIVE REPORT ATTENDING [...] the peroneus brevis appeared to be relatively [facility] PATIENT NAME: JEANNETTE HURTADO [address] MEDICAL REC #: [id number] [place] [address] ADMIT DATE: DISCHARGE DATE: OPERATIVE REPORT ATTENDING [...] I distracted the osteotomy using a lamina internet marketing coordinator. I was then able to lateralize and [...] brought down to the peroneus brevis insertion [facility] PATIENT NAME: JEANNETTE HURTADO [address] Gue[address]a MEDICAL REC #: [id number] [place] [address] ADMIT DATE: DISCHARGE DATE: OPERATIVE REPORT ATTENDING PHY: Luther Horowitz MD and the edges of both tendons roughened. A transfer was performed using the No. 2 FiberTape with several lqsqdy-lu-nfdwc anastomosis sutures. The remaining peroneus brevis tendon [...] using No. 2 FiberWire suture in a ekmso-qfqv-lbie fashion, tightening the retinaculum. I then oversewed [...] plantar fascial incision was also irrigated, injected [facility] PATIENT NAME: JEANNETTE HURTADO [address] MEDICAL REC #: [id number] [address] [id number] ADMIT DATE: DISCHARGE DATE: OPERATIVE REPORT ATTENDING [...] irrigated, injected with the Exparel mixture, and [facility] PATIENT NAME: JEANNETTE HURTADO [address] MEDICAL REC #: [id number] [place] [address] ADMIT DATE: DISCHARGE DATE: OPERATIVE REPORT ATTENDING [...] it clean and dry. Follow up at [facility] in 2 weeks. MEDICATIONS: Patient to resume her preoperative medications. Also, Percocet 5/325 mg p.o. 1 every 6 hours for pain as needed. She will alternate ibuprofen and Tylenol as well to minimize narcotic use. Luther Horowitz MD [facility] PATIENT NAME: JEANNETTE HURTADO [address]a MEDICAL REC #: [id number] [place] [address] ADMIT DATE: DISCHARGE DATE: OPERATIVE REPORT ATTENDING PHY: Luther Horowitz MD [id number] SSI File#: [id number] END OF DOCUMENT / CHANGE LOG FOLLOWS Last Edited By Elec. Signed By Luther Horowitz MD #CATADA Luther Horowitz MD #CHADA on 03/24/2020 08:02 ET on 03/24/2020 08:02 ET Revision Number - 2 Verified/Reviewed by 03/24/20801 NATALY [facility] PATIENT NAME: JEANNETTE HURTADO [address] G[address]a MEDICAL REC #: [id number] [place] [address] ADMIT DATE: DISCHARGE DATE: OPERATIVE REPORT ATTENDING PHY: Luther Horowitz MDSal[facility] Vital Signs Date TimeVital SignValuePerforming SfhdleboqJqqovqin35-61-5271 15:31-0400Body eambya098.6 cmMona Nataprawira DO Work Phone: noSaint Luke's HospitalWeqkhpuvgr51-11-1449 15:31-0400Body mass index (BMI) [Ratio]32.44 kg/m2Mona Nataprawira DO Work Phone: [facility] HospitalZcumxiyehy96-73-0828 15:31-0400Body .17 kgMona Nataprawira DO Work Phone: [facility] HospitalMwovjdntsf70-86-4019 15:31-0400Diastolic blood gbitlbnu63 mm[Hg]Pura Nataprawira DO Work Phone: noSaint Luke's HospitalGgljiulcwl79-22-0569 15:31-0400Systolic blood qgsfwdiv390 mm[Hg]Pura Nataprawira DO Work Phone: noSaint Luke's HospitalVwocdfbgdt75-24-0900 10:11-0400Body ziwqxq923.6 Lissa Chang MD Work Phone: [phone] [place] [address]-29-2025 10:11-0400Body mass index (BMI) [Ratio]32.12 kg/k6JycepCamilo Chang MD Work Phone: [phone] [place] [address]-29-2025 10:11-0400Body opnzob26.27 kgCamilo Chang MD Work Phone: [address] [place], [place] [address]Uumwkskqxm29-12-4660 10:11-0400Diastolic blood ynomwuay00 mm[Hg]Camilo Chang MD Work Phone: 1(179)835-[address] [place] [address]-29-2025 10:11-0400Heart rate72 /min Camilo Chang MD Work Phone: 1(154)988-[address] [place] [address]-29-2025 10:11-0400Respiratory rate16 /minCamilo Chang MD Work Phone: 1(515)636-[address] [place] [address]-29-2025 10:118436XjE3% (BldA) [Mass fraction]97 %Camilo Chang MD Work Phone: [address] [place], [place] [address]Rdmcqatrhc53-76-4879 10:11-0400Systolic blood rnmejkga002 mm[Hg]Camilo Chang MD Work Phone: [address] [place], [place] [address]Ritwrjlqfo37-63-2712 14:03-0400Body temperature 97.59 [degF]Ma Sand Work Phone: [facility]09-04-2025 14:03-0400Diastolic blood mm[Hg]Ma Sand Work Phone: [facility]09-04-2025 14:03-0400Heart rate72 /min Ma Sand Work Phone: [facility]09-04-2025 14:03-0400Respiratory rate 16 /minMa Sand Work Phone: [address] [place] [address]-04-2025 14:03-7573YzF0% (BldA) [Mass fraction]99 %Ma Sand Work Phone: [facility]09-04-2025 14:03-0400Systolic blood rydhjqux883 mm[Hg]Ma Sand Work Phone: [facility]07-16-2025 14:08-0400Body mass index (BMI) [Ratio]32.61 kg/l2Xgitm Shaina PA-C Work Phone: [facility]07-16-2025 14:08-0400Body temperature 97.81 [degF]Maite Shaina PA-C Work Phone: [facility]07-16-2025 14:08-0400Body zbhcwy15.6 kgMinadwoa Shaina PA-C Work Phone: [facility]07-16-2025 14:08-0400Diastolic blood tihfllau94 mm[Hg]Maite Shaina PA-C Work Phone: [facility]07-16-2025 14:08-0400Heart rate75 /min Maite Shaina PA-C Work Phone: [facility]07-16-2025 14:08-0400Respiratory rate 16 /minMinadwoa Shaina PA-C Work Phone: [facility]07-16-2025 14:08-5286SpV0% (BldA) [Mass fraction]99 %Maite Shaina PA-C Work Phone: [facility]07-16-2025 14:08-0400Systolic blood mufanmzn673 mm[Hg]Maite Shaina PA-C Work Phone: [facility]07-09-2025 14:35-0400Body temperature 97.59 [degF]Ma Sand Work Phone: [facility]07-09-2025 14:35-0400Diastolic blood gichsgsj34 mm[Hg]Ma Sand Work Phone: [facility]07-09-2025 14:35-0400Heart rate72 /min Ma Sand Work Phone: [facility]07-09-2025 14:35-0400Respiratory rate 16 /minMa Sand Work Phone: [facility]07-09-2025 14:35-3778PtF8% (BldA) [Mass fraction]99 %Ma Sand Work Phone: [facility]07-09-2025 14:35-0400Systolic blood mm[Hg]Ma Sand Work Phone: [facility]06-11-2025 14:14-0400Body temperature 97.11 [degF]Ma Sand Work Phone: [facility]06-11-2025 14:14-0400Diastolic blood mm[Hg]Ma Sand Work Phone: [facility]06-11-2025 14:14-0400Heart rate73 /min Ma Sand Work Phone: [facility]06-11-2025 14:14-0400Respiratory rate 16 /minMa Sand Work Phone: [facility]06-11-2025 14:14-3020FrX4% (BldA) [Mass fraction]98 %Ma Sand Work Phone: [facility]06-11-2025 14:14-0400Systolic blood hymfdaxv799 mm[Hg]Ma Sand Work Phone: [facility]06-09-2025 15:36-0400Body mass index (BMI) [Ratio]33.73 kg/m2Mona Nataprawira DO Work Phone: [facility] HospitalIkisbgilyc20-04-6057 15:36-0400Body shaiwj79.8 kg Pura Nataprawira DO Work Phone: noSaint Luke's HospitalOybtmhoqkx85-77-2337 15:36-0400Diastolic blood mm[Hg]Pura Nataprawira DO Work Phone: noSaint Luke's HospitalKddutxyphu83-18-8179 15:36-0400Systolic blood yadmyxvb027 mm[Hg]Pura Nataprawira DO Work Phone: [facility] HospitalOudfmelgph52-73-4159 10:23-0400Body ennxka339.6 Lissa Chang MD Work Phone: [phone] [place], [place] [address]Fqsyysoyjf18-62-8830 10:23-0400Body mass index (BMI) [Ratio]33.73 kg/u9YcaogCamilo Chang MD Work Phone: [phone])[address] [place], [place] [address]206-02-2025 10:230400Body .8 kg Camilo Chang MD Work Phone: 1(332)[address] [place], [place] 68[address]206-02-2025 10:23-0400Diastolic blood xgmoqchs98 mm[Hg]Camilo Chang MD Work Phone: 1(131)[address] [place], [place] [address]206-02-2025 10:23-0400Heart rate74 /min Camilo Chang MD Work Phone: 1(332)[address] [place], [place] [address]206-02-2025 10:230400Respiratory rate16 /minCamilo Chang MD Work Phone: 1(085)[address] [place], [place] [address]206-02-2025 10:23-7543TlO0% (BldA) [Mass fraction]97 %Camilo Chang MD Work Phone: [phone] [place], [place] [address]Qhkcpgldvj48-28-3763 10:23-0400Systolic blood xknecewu667 mm[Hg]Camilo Chang MD Work Phone: [phone]05-23-2025 09:30-0400Diastolic blood wmbsdvyn93 mm[Hg]Klaudia Gomez MD Work Phone: [facility]05-23-2025 09:30-0400 Heart rate69 /Coni Gomez MD Work Phone: [facility]05-23-2025 09:30-0400 Respiratory rate20 /oCni Gomez MD Work Phone: [facility]05-23-2025 09:30-0400 SaO2% (BldA) [Mass fraction]98 %Klaudia Gomez MD Work Phone: [facility]05-23-2025 09:30-0400 Systolic blood mm[Hg]Klaudia Gomez MD Work Phone: [facility]05-23-2025 07:59-0400 Body qrykmb566.64 cmKlaudia Gomez MD Work Phone: [facility]05-23-2025 07:59-0400 Body ryjbqt51.98 kgKlaudia Gomez MD Work Phone: [facility]05-15-2025 15:08-0400 Body qsvzquvzyip21.2 [degF]Ma Sand Work Phone: [facility]05-15-2025 15:08-0400Diastolic blood qmqvsagn51 mm[Hg]Ma Sand Work Phone: [facility]05-15-2025 15:08-0400Heart rate65 /min Ma Sand Work Phone: [facility]05-15-2025 15:08-0400Respiratory rate 16 /minMa Sand Work Phone: [facility]05-15-2025 15:08-2292MlD6% (BldA) [Mass fraction]97 %Ma Sand Work Phone: [facility]05-15-2025 15:08-0400Systolic blood sjaqyebj515 mm[Hg]Ma Sand Work Phone: [facility]04-16-2025 14:17-0400Body bcrunn543.6 cmMinadwoa Shaina PA-C Work Phone: [facility]04-16-2025 14:17-0400Body mass index (BMI) [Ratio]32.68 kg/e4Tifut Shaina PA-C Work Phone: [facility]04-16-2025 14:17-0400Body temperature 97.81 [degF]Maite Merritt PA-C Work Phone: [facility]04-16-2025 14:17-0400Body .8 kgMinadwoa Churcher PA-C Work Phone: [facility]04-16-2025 14:17-0400Diastolic blood lbekwiam76 mm[Hg]Maite Churcher PA-C Work Phone: [facility]04-16-2025 14:17-0400Heart rate61 /min Maite Churcher PA-C Work Phone: [facility]04-16-2025 14:17-0400Respiratory rate 16 /minMaite Churcher PA-C Work Phone: [facility]04-16-2025 14:17-0651AfV8% (BldA) [Mass fraction]99 %Maite Churcher PA-C Work Phone: [facility]04-16-2025 14:17-0400Systolic blood nqueyqll135 mm[Hg]Maite Churcher PA-C Work Phone: [facility]04-08-2025 13:10-0400Body .[address] [facility]04[facility] 13:10-0400Body mass index (BMI) [Ratio]33.2 kg/u9[facility]ucnu[facility]04-08-2025 13:10-0400Body iosyoo07.[address] [facility]04-08-2025 13:10-0400Diastolic blood vhhtoskn53 mm[Hg][facility]04-08-2025 13:10-0400 Heart rate71 /[facility]04-08-2025 13:10-0400 Respiratory rate18 /[facility]04-08-2025 13:10-0400 SaO2% (BldA) [Mass fraction]92 %[facility]04-08-2025 13:10-0400Systolic blood mbbecjvf687 mm[Hg][facility] 07-31-2024 14:36-0400Body kpnxixwbinh66.81 [degF]Ma Naila Work Phone: [facility]03-18-2025 14:36-0400Heart rate67 /min Ma Sand Work Phone: [facility]03-18-2025 14:36-0400Respiratory rate 18 /minMa Sand Work Phone: [facility]03-18-2025 14:36-7468KeW8% (BldA) [Mass fraction]96 %Ma Sand Work Phone: [facility]03-10-2025 15:23-0400Body mass index (BMI) [Ratio]31.32 kg/m2Mona Nataprawira DO Work Phone: [facility] HospitalDdiaxereyv92-97-1590 15:23-0400Body jppojv33.72 kgMona Nataprawira DO Work Phone: [facility] HospitalOfagwzmgqi28-18-1195 15:23-0400Diastolic blood xpinlzbz16 mm[Hg]Pura Nataprawira DO Work Phone: [facility] HospitalDgsqrlhytv72-32-0269 15:23-0400Systolic blood fzynuqva207 mm[Hg]Pura Nataprawira DO Work Phone: [facility] HospitalVrlfsxvprc51-44-8120 14:32-0500Body mopqwn854.6 cmMa Sand Work Phone: [facility]02-18-2025 14:32-0500Body mass index (BMI) [Ratio]33.11 kg/m2Ma Sand Work Phone: [facility]02-18-2025 14:32-0500Body temperature 97.81 [degF]Ma Sand Work Phone: [facility]02-18-2025 14:32-0500Body tqcydc35 kg Ma Sand Work Phone: [facility]02-18-2025 14:32-0500Diastolic blood ekiqscow80 mm[Hg]Ma Sand Work Phone: [facility]02-18-2025 14:32-0500Heart rate85 /min Ma Sand Work Phone: [facility]02-18-2025 14:32-0500Respiratory rate 16 /minMervin Sand Work Phone: [facility]02-18-2025 14:32-8343FmI4% (BldA) [Mass fraction]98 %Mervin Sand Work Phone: [facility]02-18-2025 14:32-0500Systolic blood fszalfcf088 mm[Hg]Mervin Sand Work Phone: [facility]02-11-2025 17:33-0500Body mass index (BMI) [Ratio]31.01 kg/m2Devan Nunez GROUNDS MAINTENANCE MANAGER Work Phone: [facility] HospitalCmuwnsnynr17-50-8336 17:33-0500Body temperature 98.4 [degF]Devan Nunez GROUNDS MAINTENANCE MANAGER Work Phone: [facility] HospitalVwmfaotdba11-79-4911 17:33-0500Body jdirzz46.81 kgDevan Gary GROUNDS MAINTENANCE MANAGER Work Phone: [facility] HospitalEhxudgghki32-23-9362 17:33-0500Diastolic blood nfeddcoq87 mm[Hg]Devan Nunez GROUNDS MAINTENANCE MANAGER Work Phone: [facility] HospitalLditmddibr85-73-2623 17:33-0500Heart rate83 /min Devan Nunez GROUNDS MAINTENANCE MANAGER Work Phone: [facility] HospitalBubugyygpe56-31-7853 17:33-8389GpJ6% (BldA) [Mass fraction]97 %Devan Nunez GROUNDS MAINTENANCE MANAGER Work Phone: [facility] HospitalSgnkttndov66-53-3329 17:33-0500Systolic blood cbytqlfu941 mm[Hg]Devan Nunez GROUNDS MAINTENANCE MANAGER Work Phone: [facility] HospitalOhoryflyfq91-36-7733 14:13-0500Body oytkjq998.6 cmMinadwoa Churcher PA-C Work Phone: [facility]01-22-2025 14:13-0500Body mass index (BMI) [Ratio]33.11 kg/v5Okpww Shaina PA-C Work Phone: [facility]01-22-2025 14:13-0500Body temperature 97.3 [degF]Maite Shaina PA-C Work Phone: [facility]01-22-2025 14:13-0500Body kg Maite Shaina PA-C Work Phone: [facility]01-22-2025 14:13-0500Diastolic blood ptqucqkk94 mm[Hg]Maite Shaina PA-C Work Phone: [facility]01-22-2025 14:13-0500Heart rate83 /min Maite Shaina PA-C Work Phone: [facility]01-22-2025 14:13-0500Respiratory rate 16 /minMaite Shaina PA-C Work Phone: [facility]01-22-2025 14:13-1528ObY7% (BldA) [Mass fraction]96 %Maite Shaina PA-C Work Phone: [facility]01-22-2025 14:13-0500Systolic blood rztacpdo453 mm[Hg]Maite Shaina PA-C Work Phone: [facility]01-15-2025 19:47-0500Body temperature 97.2 [degF]Devan Nunez GROUNDS MAINTENANCE MANAGER Work Phone: noSaint [facility] HospitalHhhbnemqua90-76-3405 19:47-0500Diastolic blood kictzaow66 mm[Hg]Devan Nunez GROUNDS MAINTENANCE MANAGER Work Phone: noSaint [facility] HospitalKemjuappdh34-61-8836 19:47-0500Heart rate62 /min Devan Nunez GROUNDS MAINTENANCE MANAGER Work Phone: [facility] HospitalRngvbbqyep50-82-5954 19:47-6880KbY5% (BldA) [Mass fraction]98 %Devan Nunez GROUNDS MAINTENANCE MANAGER Work Phone: [facility] HospitalFawxnsdzkj22-84-0796 19:47-0500Systolic blood ogdcbbbn629 mm[Hg]Devan Nunez GROUNDS MAINTENANCE MANAGER Work Phone: [facility] HospitalKctvbcbtgk61-24-3253 14:03-0500Body temperature 98.29 [degF]Mervin Yoo Work Phone: [facility]12-26-2024 14:03-0500Diastolic blood mm[Hg]Ma Sand Work Phone: [facility]12-26-2024 14:03-0500Heart rate67 /min Ma Sand Work Phone: [facility]12-26-2024 14:03-0500Respiratory rate 18 /minMa Sand Work Phone: [facility]12-26-2024 14:03-4880WcX1% (BldA) [Mass fraction]95 %Ma Sand Work Phone: [facility]12-26-2024 14:03-0500Systolic blood grlopftr565 mm[Hg]Ma Sand Work Phone: [facility]12-09-2024 14:37-0500Body mass index (BMI) [Ratio]31.01 kg/m2Mona Nataprawira DO Work Phone: [facility] HospitalWjlifpdvri26-21-3304 14:37-0500Body qrhmgu27.81 kgMona Nataprawira DO Work Phone: [facility] HospitalNrjxdhnohy22-76-4299 14:37-0500Diastolic blood uycstjvk99 mm[Hg]Pura Nataprawira DO Work Phone: [facility] HospitalOzqdbgctyc59-41-1578 14:37-0500Systolic blood cfzbtcon161 mm[Hg]Pura Nataprawira DO Work Phone: [place] [address]Dkrgezbaqk03-95-3083 10:43-0500Body mass index (BMI) [Ratio]31.17 kg/m2Mona Nataprawira DO Work Phone: [place] [address]Acttxfmvgf91-64-5729 10:43-0500Body gieuad57.27 kgMona Nataprawira DO Work Phone: [place] [address]Kbyxoctxwy02-54-1839 10:43-0500Diastolic blood jwnmpdto63 mm[Hg]Pura Nataprawira DO Work Phone: [place] [address]Mbecsfgkze00-28-0854 10:43-0500Systolic blood ilaawugb707 mm[Hg]Pura Lara DO Work Phone: n[facility] Wmhlwwbqvx02-05-0615 15:15-0500Body temperature 98.1 [degF]Chair Jbphh Work Phone: [facility]11-26-2024 15:15-0500Diastolic blood jdqznleb45 mm[Hg]Chair Jbphh Work Phone: [place] [address]-26-2024 15:15-0500Heart rate77 /min Chair Jbphh Work Phone: [place] [address]-26-2024 15:15-0500Respiratory rate 18 /minChair Ani Work Phone: [place] [address]-26-2024 15:15-1319LhX7% (BldA) [Mass fraction]97 %Chair Ani Work Phone: [place] [address]-26-2024 15:15-0500Systolic blood foifauce250 mm[Hg]Chair Jbphh Work Phone: [place] [address]-21-2024 15:08-0500Body temperature 98.01 [degF]Chair Jbphh Work Phone: [place] [address]-21-2024 15:08-0500Diastolic blood hafgittc62 mm[Hg]Chair Ani Work Phone: [place] [address]-21-2024 15:08-0500Heart rate73 /min Chair Ani Work Phone: [place] [address]-21-2024 15:08-0500Respiratory rate 16 /minChair Ani Work Phone: [place] [address]-21-2024 15:08-6539TwP7% (BldA) [Mass fraction]97 %Chair Jbphh Work Phone: [place] [address]-21-2024 15:08-0500Systolic blood mm[Hg]Chair Jbphh Work Phone: [place] [address]-19-2024 15:10-0500Body temperature 98.29 [degF]Chair Ani Work Phone: [place] [address]-19-2024 15:10-0500Diastolic blood jopvgcho31 mm[Hg]Chair Ani Work Phone: [place] [address]-19-2024 15:10-0500Heart rate72 /min Chair Ani Work Phone: [place] [address]-19-2024 15:10-0500Respiratory rate 18 /minChair Ani Work Phone: [place] [address]-19-2024 15:10-0138HlB6% (BldA) [Mass fraction]100 %Chair Ani Work Phone: [place] [address]-19-2024 15:10-0500Systolic blood hmycmfqx048 mm[Hg]Chair Ani Work Phone: [place] [address]-14-2024 15:08-0500Body temperature 98.1 [degF]Chair Ani Work Phone: [place] [address]-14-2024 15:08-0500Diastolic blood tdkquiug75 mm[Hg]Chair Ani Work Phone: [place] [address]-14-2024 15:08-0500Heart rate70 /min Chair Ani Work Phone: [place] [address]-14-2024 15:08-0500Respiratory rate 16 /minChair Ani Work Phone: [place] [address]-14-2024 15:08-2450MbM6% (BldA) [Mass fraction]98 %Chair Jbphh Work Phone: [place] [address]-14-2024 15:08-0500Systolic blood dtpyrbjs500 mm[Hg]Chair Ani Work Phone: [place] [address]-12-2024 15:07-0500Body temperature 97.7 [degF]Chair Ani Work Phone: [facility]11-12-2024 15:07-0500Diastolic blood umgicavs73 mm[Hg]Chair Ani Work Phone: [facility]11-12-2024 15:07-0500Heart rate78 /min Chair Ani Work Phone: [facility]11-12-2024 15:07-0500Respiratory rate 18 /minChair Ani Work Phone: [place] [address]-12-2024 15:07-5906PdG4% (BldA) [Mass fraction]98 %Chair Ani Work Phone: [facility]11-12-2024 15:07-0500Systolic blood jyuvoues839 mm[Hg]Chair Law Work Phone: [facility]11-07-2024 14:20-0500Body mass index (BMI) [Ratio]31.32 kg/m2Monkennedy Nataprawira DO Work Phone: [facility] HospitalDrtwknlpua79-53-6960 14:20-0500Body prbfcy29.72 kgMona Nataprawira DO Work Phone: no[facility] HospitalYpdkjcuffj74-32-2215 14:20-0500Diastolic blood vpznzyxc49 mm[Hg]Pura Nataprawira DO Work Phone: [facility] HospitalQitnhwzqsf60-25-4979 14:20-0500Systolic blood qgkfocff397 mm[Hg]Pura Nataprawira DO Work Phone: [facility] HospitalQnlbenicsh23-91-5221 14:34-0400Body bongaj000.6 cmMindy Shaina PA-C Work Phone: [facility]10-30-2024 14:34-0400Body mass index (BMI) [Ratio]32.82 kg/v7Frkdm Shaina PA-C Work Phone: [place] [address]-30-2024 14:34-0400Body temperature 97.5 [degF]Maite Churcher PA-C Work Phone: [facility]10-30-2024 14:34-0400Body .2 kgMinadwoa Churcher PA-C Work Phone: [facility]10-30-2024 14:34-0400Diastolic blood bowuzmli34 mm[Hg]Maite Churcher PA-C Work Phone: [facility]10-30-2024 14:34-0400Heart rate68 /min Maite Churcher PA-C Work Phone: [facility]10-30-2024 14:34-0400Respiratory rate 16 /minMinadwoa Shaina PA-C Work Phone: [facility]10-30-2024 14:34-5044YfY6% (BldA) [Mass fraction]98 %Maite Churcher PA-C Work Phone: [facility]10-30-2024 14:34-0400Systolic blood tteanvjg765 mm[Hg]Maite Churcher PA-C Work Phone: [facility]10-02-2024 14:48-0400Body temperature 97.2 [degF]Ma Sand Work Phone: [facility]10-02-2024 14:48-0400Diastolic blood jgigacve04 mm[Hg]Ma Sand Work Phone: [facility]10-02-2024 14:48-0400Heart rate75 /min Ma Sand Work Phone: [facility]10-02-2024 14:48-0400Respiratory rate 16 /minMa Sand Work Phone: [facility]10-02-2024 14:48-8811VnC4% (BldA) [Mass fraction]98 %Ma Sand Work Phone: [facility]10-02-2024 14:48-0400Systolic blood cejtukxh907 mm[Hg]Ma Sand Work Phone: [facility]09-25-2024 09:54-0400Body sknoyh720.[address] [facility]09-25-2024 09:54-0400Body mass index (BMI) [Ratio]31.1 kg/i2FewkptjfnMer[facility] [facility]09-25-2024 09:54-0400Body .[address] [facility]09-25-2024 09:54-0400Diastolic blood ezuzpqsw12 mm[Hg][facility]09-25-2024 09:54-0400 Heart rate59 /[facility]09-25-2024 09:54-0400Systolic blood ilfqgpsq715 mm[Hg][facility]09-23-2024 14:02-0400 Body .[address] [facility]09-23-2024 14:02-0400Body mass index (BMI) [Ratio]31.3 kg/f9TpxpylunwMer[facility]09-23-2024 14:02-0400Body gsbsux69.[address] [facility]09-23-2024 14:02-0400Diastolic blood pkrxubsm89 mm[Hg][facility] 02-06-2024 14:02-0400Heart rate71 /[facility] 02-06-2024 14:02-0400Respiratory rate18 /[facility] 02-06-2024 14:02-6724WnS6% (BldA) [Mass fraction]98 %[facility]09-23-2024 14:02-0400Systolic blood nhhxbruh455 mm[Hg][facility]09-04-2024 15:19-0400Body uuckxphzdbj04.81 [degF]Mervin Sand Work Phone: [facility]09-04-2024 15:19-0400Diastolic blood mm[Hg]Ma Sand Work Phone: [facility]09-04-2024 15:19-0400Heart rate77 /min Ma Sand Work Phone: [facility]09-04-2024 15:19-0400Respiratory rate 16 /minMervin Yoo Work Phone: [facility]09-04-2024 15:19-7096KcZ8% (BldA) [Mass fraction]98 %Mervin Yoo Work Phone: [facility]09-04-2024 15:19-0400Systolic blood fepksvap063 mm[Hg]Mervin Yoo Work Phone: [facility]08-07-2024 14:20-0400Body .6 cmVantonella Rose MD Work Phone: [facility]08-07-2024 14:20-0400Body mass index (BMI) [Ratio]31.97 kg/f1CxmupJose Rose MD Work Phone: [facility]08-07-2024 14:20-0400Body temperature 97.2 [degF]Jose Rose MD Work Phone: [facility]08-07-2024 14:20-0400Body piabpz13.8 kgJose Rose MD Work Phone: [facility]08-07-2024 14:20-0400Diastolic blood rqfuormq79 mm[Hg]Jose Rose MD Work Phone: [facility]08-07-2024 14:20-0400Heart rate58 /min Jose Rose MD Work Phone: [facility]08-07-2024 14:20-0400Respiratory rate 16 /minJose Rose MD Work Phone: [facility]08-07-2024 14:20-1605VqV8% (BldA) [Mass fraction]98 %Jose Rose MD Work Phone: [facility]08-07-2024 14:20-0400Systolic blood mm[Hg]Jose Rose MD Work Phone: [facility]07-15-2024 14:16-0400Body temperature 97.5 [degF]Ma Sand Work Phone: [facility]07-15-2024 14:16-0400Diastolic blood mm[Hg]Ma Sand Work Phone: [facility]07-15-2024 14:16-0400Heart rate84 /min Ma Sand Work Phone: [facility]07-15-2024 14:16-0400Respiratory rate 16 /minMa Sand Work Phone: [facility]07-15-2024 14:16-6728NvP2% (BldA) [Mass fraction]98 %Ma Sand Work Phone: [facility]07-15-2024 14:16-0400Systolic blood hybqaeha636 mm[Hg]Ma Sand Work Phone: [facility]06-17-2024 13:31-0400Body temperature 97.9 [degF]Ma Sand Work Phone: [facility]06-17-2024 13:31-0400Diastolic blood tqnxakix22 mm[Hg]Ma Sand Work Phone: [facility]06-17-2024 13:31-0400Heart rate61 /min Ma Sand Work Phone: [facility]06-17-2024 13:31-0400Respiratory rate 16 /minMa Sand Work Phone: [facility]06-17-2024 13:31-5256LlV6% (BldA) [Mass fraction]100 %Ma Sand Work Phone: [facility]06-17-2024 13:31-0400Systolic blood ansybtmg873 mm[Hg]Ma Sand Work Phone: [facility]05-20-2024 13:26-0400Body uvufrz942.6 Nora Rose MD Work Phone: [facility]05-20-2024 13:26-0400Body mass index (BMI) [Ratio]31.72 kg/z8NjtqgJose Rose MD Work Phone: [facility]05-20-2024 13:26-0400Body temperature 97.81 [degF]Jose Rose MD Work Phone: [facility]05-20-2024 13:26-0400Body kcqucf19.1 kgJose Rose MD Work Phone: [facility]05-20-2024 13:26-0400Diastolic blood mpjqrirm78 mm[Hg]Jose Rose MD Work Phone: [facility]05-20-2024 13:26-0400Heart rate76 /min Jose Rose MD Work Phone: [facility]05-20-2024 13:26-0400Respiratory rate 16 /minJose Rose MD Work Phone: [facility]05-20-2024 13:26-1094DpR3% (BldA) [Mass fraction]98 %Jose Rose MD Work Phone: [facility]05-20-2024 13:26-0400Systolic blood svtcirsy196 mm[Hg]Jose Rose MD Work Phone: [facility]02-26-2024 13:01-0500Body .6 cmRuben Wiggins APRN.[employer]ITE H[employer] HACKER Work Phone: [facility]02-26-2024 13:01-0500Body temperature 97.2 [degF]Ruben Wiggins APRN.WHITE H[employer] HACKER Work Phone: [facility]02-26-2024 13:01-0500Body ftekwp15.6 kgRuben Wiggins APRN.WHITE H[employer] HACKER Work Phone: [facility]02-26-2024 13:01-0500Diastolic blood opapuops71 mm[Hg]Ruben Phoenix ASTRONOMY INSTRUCTOR.[employer]ITE [employer] HACKER Work Phone: [facility]02-26-2024 13:01-0500Heart rate84 /min Ruben Wiggins ASTRONOMY INSTRUCTOR.WHITE [employer] HACKER Work Phone: [facility]02-26-2024 13:01-0500Respiratory rate 16 /minRuben Wiggins ASTRONOMY INSTRUCTOR.WH[employer] HACKER Work Phone: [facility]02-26-2024 13:01-7464XyH5% (BldA) [Mass fraction]99 %Ruben Wiggins ASTRONOMY INSTRUCTOR.WHITE H[employer] HACKER Work Phone: [facility]02-26-2024 13:01-0500Systolic blood gobwgzor878 mm[Hg]Ruben Wiggins ASTRONOMY INSTRUCTOR.[employer]ACKER Work Phone: [facility]02-23-2024 16:42-0500Diastolic blood yqxkvkki89 mm[Hg]MD Klaudia Gomez Work Phone: [facility]02-23-2024 16:42-0500 Heart rate66 /minMD Klaudia Gomez Work Phone: [phone]02-23-2024 16:42-0500 Respiratory rate16 /minMD Klaudia Gomez Work Phone: [facility]02-23-2024 16:42-0500 SaO2% (BldA) [Mass fraction]97 %MD Klaudia Gomez Work Phone: [facility]02-23-2024 16:42-0500 Systolic blood gdatxmpl976 mm[Hg]MD Klaudia Gomez Work Phone: [facility]02-23-2024 15:45-0500 Body rxuqhbauncy77.5 [degF]MD Klaudia Gomez Work Phone: [facility]02-23-2024 08:39-0500 Body niysdl529.18 cmMD Klaudia Gomez Work Phone: [facility]02-23-2024 08:39-0500 Body wgoglc03 kgMD Klaudia Gomez Work Phone: [facility]02-02-2024 09:34-0500 Diastolic blood ejwkafje42 mm[Hg]MD Klaudia Gomez Work Phone: [facility]02-02-2024 09:34-0500 Heart rate66 /minMD Klaudia Gomez Work Phone: [facility]02-02-2024 09:34-0500 Systolic blood tapjwhqx805 mm[Hg]MD Klaudia Gomez Work Phone: [facility]01-18-2024 13:40-0500 Body zhrixf620.64 cmGeorge Koromia Other [facility]01-18-2024 13:40-0500 Body mass index (BMI) [Ratio]33.7 kg/h1Bfjwzd Koromia Other [employer] Other [id number] 13:40-0500Body .71 kgGeorge Koromia Other [facility]01-18-2024 13:40-0500 Diastolic blood xhgeprpz83 mm[Hg]Haresh Koromia Other [facility]01-18-2024 13:40-0500 Respiratory rate18 /minGeorge Koromia Other [employer] Other [id number] 13:40-6808AcV7% (BldA) [Mass fraction]98 % Haresh Koromia Other [facility] Other 01-18-2024 13:40-0500Systolic blood acvhmjjw883 mm[Hg] Haresh Koromia Other [facility]12-19-2023 13:40-0500 Body kputyk398.64 cmMD Klaudia Gomez Work Phone: [facility]12-19-2023 13:40-0500 Body evmrzs08.7 kgMD Klaudia Gomez Work Phone: [facility]12-19-2023 13:40-0500 Diastolic blood qxcpvclo72 mm[Hg]MD Klaudia Gomez Work Phone: [facility]12-19-2023 13:40-0500 Systolic blood mm[Hg]MD Klaudia Gomez Work Phone: [facility]11-20-2023 12:57-0500 Body dnkwhi537.6 cmRuben Wiggins APRN.[employer]ER Work Phone: [facility]11-20-2023 12:57-0500Body temperature 97.59 [degF]Ruben Wiggins APRN.[employer]ER Work Phone: [facility]11-20-2023 12:57-0500Body wequwm66.99 kgRuben Wiggins APRN.[employer] HACKER Work Phone: [facility]11-20-2023 12:57-0500Diastolic blood ezimzajw67 mm[Hg]Ruben Wiggins APRN.[employer] Work Phone: [facility]11-20-2023 12:57-0500Heart rate58 /min Ruben Wiggins APRN.[employer]ER Work Phone: [facility]11-20-2023 12:57-0500Respiratory rate 16 /minRuben Wiggins APRN.[employer]ER Work Phone: [facility]11-20-2023 12:57-4116VrP4% (BldA) [Mass fraction]97 %Ruben Wiggins APRN.[employer]ER Work Phone: [facility]11-20-2023 12:57-0500Systolic blood sxaoczuq781 mm[Hg]Ruben Wiggins APRN.[employer] Work Phone: [facility]10-23-2023 13:00-0400Body temperature 98.71 [degF]Chair Ani Work Phone: [facility]10-23-2023 13:00-0400Diastolic blood ghmbuzbs43 mm[Hg]Chair Jbphh Work Phone: [facility]10-23-2023 13:00-0400Heart rate63 /min Chair Ani Work Phone: [facility]10-23-2023 13:00-0400Respiratory rate 16 /minChair Jbphh Work Phone: [facility]10-23-2023 13:00-6201GsS7% (BldA) [Mass fraction]97 %Chair Jbphh Work Phone: [facility]10-23-2023 13:00-0400Systolic blood nukvaknu150 mm[Hg]Chair Jbphh Work Phone: [facility]10-09-2023 13:03-0400Body temperature 97.9 [degF]Chair Jbphh Work Phone: [facility]10-09-2023 13:03-0400Diastolic blood gvbvunrh52 mm[Hg]Chair Jbphh Work Phone: [facility]10-09-2023 13:03-0400Heart rate67 /min Chair Jbphh Work Phone: [facility]10-09-2023 13:03-0400Respiratory rate 18 /minChair Jbphh Work Phone: [facility]10-09-2023 13:03-9652DyE9% (BldA) [Mass fraction]97 %Chair Jbphh Work Phone: [facility]10-09-2023 13:03-0400Systolic blood qllrnnha714 mm[Hg]Chair Ani Work Phone: [facility]09-25-2023 13:31-0400Body cybzfs744.6 Nora Rose MD Work Phone: [facility]09-25-2023 13:31-0400Body temperature 97 [degF]Jose Rose MD Work Phone: [facility]09-25-2023 13:31-0400Body ihnlue65.26 kgJose Rose MD Work Phone: [facility]09-25-2023 13:31-0400Diastolic blood mm[Hg]Jose Rose MD Work Phone: [facility]09-25-2023 13:31-0400Heart rate64 /min Jose Rose MD Work Phone: [place] [address]-25-2023 13:31-0400Respiratory rate 18 /minJose Rose MD Work Phone: [facility]09-25-2023 13:31-9915LlX3% (BldA) [Mass fraction]99 %Jose Rose MD Work Phone: [place] [address]-25-2023 13:31-0400Systolic blood zhqhaull804 mm[Hg]Jose Rose MD Work Phone: [place] [address]-13-2023 15:36-0400Body rhvkdi800.6 cmVantonella Rose MD Work Phone: [place] [address]-13-2023 15:36-0400Body temperature 97.2 [degF]Jose Rose MD Work Phone: [place] [address]-13-2023 15:36-0400Body bnxbma56.44 kgJose Rose MD Work Phone: [place] [address]-13-2023 15:36-0400Diastolic blood qihduyqb66 mm[Hg]Jose Rose MD Work Phone: [place] [address]-13-2023 15:36-0400Heart rate74 /min Jose Rose MD Work Phone: [place] [address]-13-2023 15:36-0400Respiratory rate 16 /minJose Rose MD Work Phone: [facility]09-13-2023 15:36-2410PiQ0% (BldA) [Mass fraction]98 %Jose Rose MD Work Phone: [facility]09-13-2023 15:36-0400Systolic blood qhduhdhl545 mm[Hg]Jose Rose MD Work Phone: [facility]08-23-2023 09:45-0400Body qgguij453.64 cmKlaudia Gomez Other [facility] Other 08-23-2023 09:45-0400Body mass index (BMI) [Ratio] 32.44 kg/q0GmdlxuKlaudia Gomez Other [facility] Other 08-23-2023 09:45-0400Body .17 kgKlaudia Gomez Other [facility] Other 08-23-2023 09:45-0400Diastolic blood mm[Hg] Klaudia Gomez Other [facility] Other 08-23-2023 09:45-0400Systolic blood xkoszucs465 mm[Hg] Klaudia Gomez Other [facility] Other 07-07-2023 08:45-0400Body aklmvq978.64 cmKlaudia Gomez Other [facility] Other 07-07-2023 08:45-0400Body mass index (BMI) [Ratio] 33.41 kg/y9WqwsczKlaudia Gomez Other [facility] Other 07-07-2023 08:45-0400Body guervg78.9 kgKlaudia Gomez Other [facility] Other 07-07-2023 08:45-0400Diastolic blood qdhewlzx86 mm[Hg] Klaudia Gomez Other [facility] Other 07-07-2023 08:45-2984MfL2% (BldA) [Mass fraction]98 % Klaudia Gomez Other [facility] Other 07-07-2023 08:45-0400Systolic blood vhqgbyir140 mm[Hg] Klaudia Gomez Other [facility] Other 05-25-2023 13:30-0400Body kedjup671.64 cmKlaudia Gomez Other [facility] Other 05-25-2023 13:30-0400Body mass index (BMI) [Ratio] 34.18 kg/t9HcgqnjKlaudia Gomez Other [facility] Other 05-25-2023 13:30-0400Body jraygbowgpl14 [degF]Klaudia Gomez Other [facility] Other 05-25-2023 13:30-0400Body fmrquc66.07 kgKlaudia Gomez Other [facility] Other 05-25-2023 13:30-0400Diastolic blood yszwgrtx52 mm[Hg] Klaudia Gomez Other [facility] Other 05-25-2023 13:30-0400Systolic blood oalodliw997 mm[Hg] Klaudia Gomez Other [facility] Other 04-10-2023 16:30-0400Body ttojxz193.64 cmKlaudia Jason Other [facility] Other 04-10-2023 16:30-0400Body mass index (BMI) [Ratio] 34.05 kg/j8Ktvnjf Gomez Other [facility] Other 04-10-2023 16:30-0400Body zweyxu05.71 kgKlaudia Jason Other [facility] Other 04-10-2023 16:30-0400Diastolic blood cinakosc98 mm[Hg] Klaudia Jason Other [facility] Other 04-10-2023 16:30-1213MmN8% (BldA) [Mass fraction]97 % Klaudia Gomez Other [facility] Other 04-10-2023 16:30-0400Systolic blood bdxtfias863 mm[Hg] Klaudiayann Gomez Other [facility] Other Encounters Encounter DateEncounter TypeCare ProviderFacilityStart: 03-07-2025 End: 59-66-2221Dotncj outpatient visit 15 minutesPura Lara DO Work Phone: [facility] OBGYNComment on above:Encounter for pessary maintenance (Primary Dx); Cystocele, midline; Mixed urge and stress incontinenceStart: 03-07-2025 End: 48-11-3711mjpvyjkewlWHRXViktor Velázquez AvailableStart: 03-06-2025 End: 47-39-2652ilbfrqyecdAAPDHU Elder GOMEZFacility:[facility]tart: 03-05-2025 End: 96-82-5691fiuezgersoJDCHHJ E BRAUNFacility:[facility]tart: 02-20-2025 End: 95-86-5052slgovrpypmAMGMC M MUSSERFacility:[facility]tart: 02-14-2025 End: 22-47-5674togysxdzroGTNKBB E BRAUNFacility:[facility]tart: 02-11-2025 End: 40-74-3163Qjyqxvmelina Chang MD Work Phone: noms Ani EndocrinologyStart: 02-11-2025 End: 66-73-3295Gfyzamcurt Chang MD Work Phone: noms Jbphh EndocrinologyStart: 02-11-2025 End: 39-36-5109Ckqpqp outpatient visit 25 minutesCamilo Chang MD Work Phone: noms Jbphh EndocrinologyComment on above:Type 2 diabetes mellitus with hyperglycemia, without long-term current use of insulin (HCC) (Primary Dx); Vitamin D deficiency; Hyperlipemia, mixed ; Primary hypertension ; Encounter for dietary consultation; Class 1 obesity due to excess calories with serious comorbidity and body mass index (BMI) of 32.0 to 32.9 in adultStart: 02-11-2025 End: 51-35-9350zcnafbqznvMNQDG F SABBAGHNot AvailableStart: 01-17-2025 End: 54-77-7146Ipkkugx evaluation of patient and reportMa Nurse Edmund Yoo Work Phone: Hematology/OncologyComment on above:Iron deficiency anemia secondary to inadequate dietary iron intake (Primary Dx)Start: 01-17-2025 End: 55-42-2471xiaelreooyMTEHF M MUSSERFacility:[facility]tart: 12-20-2024 End: 61-94-2125siriixdjzsQURJU M MUSSERFacility:[facility]tart: 12-14-2024 End: 61-58-3645CxycsvMmmewLorena Rose MD Work Phone: Hematology/OncologyComment on above:Refill Request Start: 12-14-2024 End: 34-51-2570OnwoauTsprBrandi Lara DO Work Phone: noms Bhargav OBGYNComment on above:Mixed urge and stress incontinenceStart: 11-28-2024 End: 99-25-5604Dhzsbi outpatient visit 15 minutesMaite Merritt PA-C Work Phone: Hematology/OncologyComment on above:Iron deficiency anemia secondary to inadequate dietary iron intake (Primary Dx); Folate deficiency; Megaloblastic anemia due to vitamin B12 deficiencyStart: 11-28-2024 End: 51-89-3553Irlkpe WorkLormatti Husain LSWHematology/OncologyStart: 11-21-2024 End: 89-13-2655Nidfsoi evaluation of patient and reportMa Nurse Edmund Yoo Work Phone: Hematology/OncologyComment on above:Iron deficiency anemia secondary to inadequate dietary iron intake (Primary Dx)Start: 11-21-2024 End: 68-66-3042wlkxbvalqvJWZAD M MUSSERFacility:[facility]tart: 10-24-2024 End: 41-38-0523Teonbdi evaluation of patient and reportMa Nurse Edmund Yoo Work Phone: Hematology/OncologyComment on above:Iron deficiency anemia secondary to inadequate dietary iron intake (Primary Dx)Start: 10-24-2024 End: 16-32-9387ndpaauvsxzUCYZG M MUSSERFacility:[facility]tart: 10-22-2024 End: 90-64-4384Kbjion outpatient visit 15 minutesPura Lara DO Work Phone: noms PETER OBComment on above:Encounter for pessary maintenance (Primary Dx); Cystocele, midline; Mixed urge and stress incontinence; Acute vaginitis; Vaginal discharge; Vaginal inflammation from pessary, initial encounter ([facility])Start: 10-22-2024 End: 02-63-5589aetyjpniunIWVYBronwyn JENKINSot AvailableStart: 10-22-2024 End: 89-05-8102Nxaghzmelina Lara DO Work Phone: noms NB OBStart: 10-22-2024 End: 65-70-8229Jercpq Juanito Biggsnatasha DO Work Phone: noms NB OBStart: 10-15-2024 End: 28-76-8190Hgclwe Micaela Chang MD Work Phone: noms SH ENDOCRINOLOGYStart: 10-15-2024 End: 44-77-5716Zlhdwv Micaela Chang MD Work Phone: noms ENDOCRINOLOGYStart: 10-15-2024 End: 13-13-1958Pxixlc outpatient new 45 minutesCamilo Chang MD Work Phone: noms ENDOCRINOLOGYComment on above:Type 2 diabetes mellitus with hyperglycemia, without long-term current use of insulin (CMS/HCC) (Primary Dx); Vitamin D deficiency; Hyperlipemia, mixed (CMS/HCC); Primary hypertension (CMS/HCC); Class 1 obesity due to excess calories with serious comorbidity and body mass index (BMI) of 33.0 to 33.9 in adult; Encounter for dietary consultationStart: 10-15-2024 End: 50-88-0258ciiiinomzfXYUTD F SABBAGHNot AvailableStart: 95-94-8154Vsx- patient / Non-visitKlaudia Gomez MD Work Phone: [facility] Work Phone: Start: 10-05-2024 End: 64-54-0714Roaodzhky to same day surgery centerKlaudia Gomez MD Work Phone: [facility] Work Phone: Start: 10-05-2024 End: 91-82-5032ywrgrikwiaNvdlrp E Braun MD Work Phone: [facility] Work Phone: Start: 09-27-2024 End: 50-25-2110Lllyevs evaluation of patient and reportMa Nurse Edmund Yoo Work Phone: Hematology/OncologyComment on above:Iron deficiency anemia secondary to inadequate dietary iron intake (Primary Dx)Start: 09-27-2024 End: 94-23-3099ihqmbwtiwlZSFXG M MUSSERFacility:[facility] Hospitaltart: 09-19-2024 End: 32-20-7770Alqbahj encounter procedureKlaudia Gomez MD Work Phone: [facility] Work Phone: Start: 09-19-2024 End: 87-52-6888xojfrubzyrEyoenx E Braun MD Work Phone: [facility] Work Phone: Start: 09-05-2024 End: 56-05-0561qunsakjlyvOlqooJewel Merritt PA-C Work Phone: Hematology/OncologyComment on above:Test resultsStart: 96-34-2460Dki-patient / Non-visitKlaudia Gomez MD Work Phone: [facility] Work Phone: Start: 08-29-2024 End: 86-41-9930Ufraicd evaluation of patient and reportMa Nurse Edmund Yoo Work Phone: Hematology/OncologyComment on above:Iron deficiency anemia secondary to inadequate dietary iron intake (Primary Dx)Start: 08-29-2024 End: 63-76-4302Qxdpic outpatient visit 15 minutesMaite Merritt PA-C Work Phone: Hematology/OncologyComment on above:Other elevated white blood cell (WBC) count (Primary Dx); Iron deficiency anemia secondary to inadequate dietary iron intake; Megaloblastic anemia due to vitamin B12 deficiency; Folate deficiencyStart: 08-29-2024 End: 04-20-1800kkpqqpomrhPBNMEI E BRAUNFacility:[facility] Hospitaltart: 08-22-2024 End: 01-04-8691neshooeifbZJWFAP E BRAUNFacility:[facility] Hospitaltart: 03-43-3409Glr-patient / Non-visitKlaudia Gomez MD Work Phone: [facility] Work Phone: Start: 08-21-2024 End: 80-08-7304ixoaeuwqmkSgshpsbzzMercy Health [facility] Work Phone: Start: 08-21-2024 End: 97-60-9343Loiyiap encounter procedureNovant Health Physician GroupAt[facility] Work Phone: Start: 08-20-2024 End: 52-64-7728Uqswbfbfx encounterMaite Merritt PA-C Work Phone: Hematology/OncologyComment on above:Lab OrdersStart: 07-31-2024 End: 25-68-8483jfqvfdryavOKZIMQ E BRAUNFacility:[facility]tart: 07-31-2024 End: 29-24-3402Ntfqqmt evaluation of patient and reportMa Nurse Edmund Yoo Work Phone: Hematology/OncologyComment on above:Iron deficiency anemia secondary to inadequate dietary iron intake (Primary Dx)Start: 07-23-2024 End: 50-55-3302Zbeorm outpatient visit 15 minutesPura Lara DO Work Phone: noms NB OBComment on above:Encounter for pessary maintenance (Primary Dx); Cystocele, midline; Mixed urge and stress incontinenceStart: 07-23-2024 End: 95-19-0025mcawiyzqbxODDNViktor Velázquez AvailableStart: 07-03-2024 End: 66-45-8125otpcqaldlsIFBVBP E BRAUNFacility:[facility]tart: 07-03-2024 End: 17-14-2521Zfczrku evaluation of patient and reportMa Nurse Edmund Yoo Work Phone: Hematology/OncologyComment on above:Iron deficiency anemia secondary to inadequate dietary iron intake (Primary Dx)Start: 06-26-2024 End: 61-59-0382Towbip outpatient visit 25 minutesDevan Nunez NP Work Phone: noms SWS UCComment on above:Acute bronchitis, unspecified organism (Primary Dx); Acute coughStart: 06-26-2024 End: 21-00-2668zdocowrbouUVAAntonia Severino AvailableStart: 06-06-2024 End: 44-10-6067Gnssjbi evaluation of patient and reportMa Nurse Edmund Yoo Work Phone: Hematology/OncologyComment on above:Iron deficiency anemia secondary to inadequate dietary iron intake (Primary Dx)Start: 06-06-2024 End: 10-03-3880Ehsecy outpatient visit 15 minutesMaite Merritt PA-C Work Phone: Hematology/OncologyComment on above:Iron deficiency anemia secondary to inadequate dietary iron intake (Primary Dx); Megaloblastic anemia due to vitamin B12 deficiency; Folate deficiencyStart: 06-06-2024 End: 75-44-2247hxuzxgccmjZPBCBU E BRAUNFacility:[facility] Hospitaltart: 31-57-8867Pgd-patient / Non-visitNov[facility] Health Physician [facility] Work Phone: Start: 06-05-2024 End: 96-04-5922Djhjkbn encounter procedureNovant Health Physician [facility] Work Phone: Start: 05-30-2024 End: 61-16-3423Hadyeu outpatient visit 25 minutesDevan Nunez NP Work Phone: noms SWS UCComment on above:Struck by horse, initial encounter (Primary Dx); Hematoma of right hip, initial encounter; Acute left-sided low back pain with bilateral sciatica; Hematoma of left forearmStart: 05-30-2024 End: 64-30-4112wxvicmfkhgCLOAntonia Severino AvailableStart: 05-17-2024 End: 67-67-7182MbsxpsBfzoBrandi Lara DO Work Phone: noms NB OBComment on above:Mixed urge and stress incontinenceStart: 05-10-2024 End: 30-67-0060Xpolkeq evaluation of patient and reportMa Nurse Edmund Yoo Work Phone: Hematology/OncologyComment on above:Iron deficiency anemia secondary to inadequate dietary iron intake (Primary Dx)Start: 05-10-2024 End: 94-03-9114gugcmswbslVgqn NataprawiraFacility:[facility] Hospitaltart: 04-23-2024 End: 42-08-1450Nlyqfu outpatient visit 15 Candace Gautamaprnatasha DO Work Phone: noms NB OBComment on above:Encounter for pessary maintenance (Primary Dx); Mixed urge and stress incontinence; Cystocele, midlineStart: 04-23-2024 End: 16-50-0102hhksqcdxhpMKNE J NATAPRAWIRANot AvailableStart: 04-11-2024 End: 50-24-5676Hquvhg outpatient visit 15 minutesPura Vila Nubisioaprnatasha DO Work Phone: noms NB OBComment on above:Encounter for pessary maintenance (Primary Dx); Mixed urge and stress incontinence; Cystocele, midlineStart: 04-11-2024 End: 20-62-5393dxyyvrrqnoQNZT J NATAPRAWIRANot AvailableStart: 04-10-2024 End: 71-01-3390galervwwupVyjjf [employer] Work Phone: Hematology/OncologyComment on above:Iron deficiency anemia secondary to inadequate dietary iron intake (Primary Dx)Start: 04-05-2024 End: 43-05-6369wrxetpcykoQrzdu [employer] Work Phone: Hematology/OncologyComment on above:Iron deficiency anemia secondary to inadequate dietary iron intake (Primary Dx)Start: 04-03-2024 End: 03-07-3766ardjmyqjfvZtzmo 19 Jbphh Work Phone: Hematology/OncologyComment on above:Iron deficiency anemia secondary to inadequate dietary iron intake (Primary Dx)Start: 03-29-2024 End: 77-84-2485hbrqkaxxqqWbxkh 17 Jbphh Work Phone: Hematology/OncologyComment on above:Iron deficiency anemia secondary to inadequate dietary iron intake (Primary Dx)Start: 03-27-2024 End: 88-58-3318fvxebbsudcHlrzd 17 Jbphh Work Phone: Hematology/OncologyComment on above:Iron deficiency anemia secondary to inadequate dietary iron intake (Primary Dx)Start: 03-26-2024 End: 21-94-5555Ltrnio WorkLormatti Husain LSWHematology/OncologyStart: 03-22-2024 End: 44-53-2621ivbucqxtihBQCP J NATAPRAWIRANot AvailableStart: 03-22-2024 End: 02-24-3219Knkiuv outpatient new 30 minutesPura Lara DO Work Phone: [facility] NB OBComment on above:Mixed urge and stress incontinence (Primary Dx); Cystocele, midline; Fitting and adjustment of pessary; Other screening mammogramStart: 03-15-2024 End: 39-15-2979Wvcdkymij encounterNatfranco Sparks RNHematology/OncologyComment on above:Results; IV Venofer x 5 dosesStart: 03-14-2024 End: 48-88-3914Yienelv evaluation of patient and reportMa Nurse Edmund Yoo Work Phone: Hematology/OncologyComment on above:Iron deficiency anemia secondary to inadequate dietary iron intake (Primary Dx)Start: 03-14-2024 End: 67-35-1759Fmlwwz outpatient visit 15 minutesMaite Merritt PA-C Work Phone: Hematology/OncologyComment on above:Iron deficiency anemia secondary to inadequate dietary iron intake (Primary Dx); Megaloblastic anemia due to vitamin B12 deficiency; Folate deficiency; Malaise and fatigueStart: 03-14-2024 End: 10-03-1404zinbfmsuihRCZKP M MUSSERFacility:[facility] Hospitaltart: 02-20-2024 End: 47-07-5380Frdyffr encounter procedureMD Klaudia Gomez Work Phone: [facility] Work Phone: Start: 02-20-2024 End: 61-20-3302oeriuqueysEZNacho Gomez Work Phone: [facility] Work Phone: Start: 02-15-2024 End: 91-21-9877Imffgph evaluation of patient and reportMa Nurse Edmund Sand Work Phone: Hematology/OncologyComment on above:Iron deficiency anemia secondary to inadequate dietary iron intake (Primary Dx)Start: 02-09-2024 End: 07-07-4207Hcrewoeoy encounterSheri Ammanniti LPNNOMS NB OBStart: 02-08-2024 Patient encounter statusFirFlower Hospitaltart: 02-08-2024 End: 08-55-2375Uhkmvbpiv for gynecological examination (general) (routine) without abnormal findingsFlower Hospitaltart: 02-08-2024 End: 32-82-7968Lpqvlid encounter procedureNovant Health Physician [facility] Work Phone: Start: 02-06-2024 End: 29-13-7482Ngyvbjp encounter procedureNovant Health Physician [facility] Work Phone: Start: 01-18-2024 End: 24-71-4324Bxfshid evaluation of patient and reportMa Nurse Edmund Yoo Work Phone: Hematology/OncologyComment on above:Iron deficiency anemia secondary to inadequate dietary iron intake (Primary Dx)Start: 12-21-2023 End: 20-50-2765Ncapkys evaluation of patient and reportMa Nurse Edmund Yoo Work Phone: Hematology/OncologyComment on above:Iron deficiency anemia secondary to inadequate dietary iron intake (Primary Dx)Start: 12-21-2023 End: 15-99-4661Txgnxs outpatient visit 15 minutesJose Rose MD Work Phone: Hematology/OncologyComment on above:Anemia, unspecified type (Primary Dx); Iron deficiency anemia secondary to inadequate dietary iron intake; Megaloblastic anemia due to vitamin B12 deficiency; Folate deficiencyStart: 74-77-1802Eeh-patient / Non-visitFirsentara [facility] Physician [facility] Work Phone: Start: 11-28-2023 End: 57-97-2864Jcjsjrc evaluation of patient and reportMa Nurse Edmund Naila Work Phone: Hematology/OncologyComment on above:Iron deficiency anemia secondary to inadequate dietary iron intake (Primary Dx)Start: 10-31-2023 End: 68-00-1839Zzzqkpf evaluation of patient and reportMa Nurse Edmund Yoo Work Phone: Hematology/OncologyComment on above:Iron deficiency anemia secondary to inadequate dietary iron intake (Primary Dx)Start: 10-03-2023 End: 73-21-3262Euklcyb evaluation of patient and reportMa Nurse Edmund Naila Work Phone: Hematology/OncologyComment on above:Iron deficiency anemia secondary to inadequate dietary iron intake (Primary Dx)Start: 10-03-2023 End: 01-92-6087Fyqtvc outpatient visit 25 minutesViveannmarie Rose MD Work Phone: Hematology/OncologyComment on above:Anemia, unspecified type (Primary Dx)Start: 34-32-3379Vkntpcyg evaluation and management serviceViveannmarie Rose MD Work Phone: Hematology/OncologyComment on above:Opened In Error Start: 08-17-2023 End: 00-45-3438Aozrjhbmq department patient visitSELSACleveland Clinic South Pointe Hospitaltart: 07-11-2023 End: 18-49-6259yzbtetvvgfZxibe Martinez APRN.CNP Work Phone: Hematology/OncologyComment on above:Iron deficiency anemia secondary to inadequate dietary iron intake (Primary Dx)Start: 07-11-2023 End: 97-06-5343Ljxdibh encounter procedureRuben Wiggins APRN.CNP Work Phone: SANDUSKYStart: 30-88-0200Hjpqjukic encounterLaabdulaziz [facility] Work Phone: HOSPITAL PHARMACY HB-3Comment on above:Medication Follow-up (venofer)Start: 86-54-9719Mck-patient / Non-visitMD Klaudia Gomez Work Phone: [facility] Card[facility] Work Phone: Start: 07-08-2023 End: 88-41-8833Fkpreimfi to same day surgery centerMD Hicks Gomez Work Phone: [facility]-[employer] Work Phone: Start: 07-08-2023 End: 89-06-6997ohjsaozqgpCJ Klaudia Gomez Work Phone: [facility] Work Phone: Start: 44-80-0602Muq-patient / Non-visitMD Hicks Jason Work Phone: [facility] Work Phone: Start: 07-06-2023 End: 81-59-7478ngcbqweffkDN Klaudia Elder Gomez Work Phone: [facility] Work Phone: Start: 07-06-2023 End: 85-34-7605Lcklmmh encounter procedureMD Klaudia Gomez Work Phone: [facility] [facility] Work Phone: Start: 06-23-2023 End: 76-11-5164vqlepcyzfrWtjixq [employer] Other [facility] [employer] Other Start: 04-75-9705Khjbdtdnn encounterGeorge KoromiaFPG CardiologyStart: 06-17-2023 End: 31-47-5267lzhoozlfasKO Klaudai Elder Jason Work Phone: [facility] Work Phone: Start: 06-17-2023 End: 16-98-4227Cbfusse encounter procedureMD Klaudia Gomez Work Phone: [facility]-Electrodiagnostics Work Phone: Start: 06-02-2023 End: 36-82-1846wjhqurkkqmWgcixo Koromia Other [facility] [employer] Other Start: 90-77-6592Ephsap outpatient visit 25 minutes Haresh EmiXENA CardiologyStart: 06-02-2023 End: 15-92-4193Dlpjpek encounter procedure Klaudia Gomez Work Phone: [facility]-Start: 05-13-2023 End: 31-66-8529yqwfdzkcxiRP Klaudia Friedman Jason Work Phone: [facility] Work Phone: Start: 05-13-2023 End: 58-48-6970Iwubwfk encounter procedure Klaudia Gomez Work Phone: [facility] Work Phone: Start: 05-12-2023 End: 31-55-4908pfqmhfcnoeVaqyno Braun Other [facility] [employer] Other Start: 47-99-2460Tbkccfrkh encounterKlaudia Sanchez Referral CoordinatorStart: 05-03-2023 End: 12-03-2593Qgqzbdo encounter procedure Klaudia Gomez Work Phone: [facility] Cardiology Work Phone: Start: 04-13-2023 End: 52-40-1785yqxoqclfesPbntuk Braun Other [facility] [employer] Other Start: 74-01-3070Dbzaqdwtz encounterKlaudia Sanchez [facility] ClinicStart: 16-36-4687Gsxklcxdd encounterChayacikennedy Sanchez [facility] ClinicStart: 04-04-2023 End: 34-39-2852ikeahykfcgJooio Martinez APRN.CNP Work Phone: Hematology/OncologyComment on above:Iron deficiency anemia secondary to inadequate dietary iron intake (Primary Dx)Start: 04-04-2023 End: 50-01-8510Cviuzdr encounter Carlos Wiggins APRN.CNP Work Phone: SANDUSKYStart: 03-07-2023 End: 74-04-2266zkwrnpzvzzIacrb 11 Ani Work Phone: Hematology/OncologyComment on above:Iron deficiency anemia secondary to inadequate dietary iron intake (Primary Dx)Start: 02-21-2023 End: 58-97-4589zkerkttwsuNdcfq 12 Ani Work Phone: Hematology/OncologyComment on above:Iron deficiency anemia secondary to inadequate dietary iron intake (Primary Dx)Start: 02-07-2023 End: 22-19-9973Mounyv outpatient visit 25 minutesJose Rose MD Work Phone: Hematology/OncologyComment on above:Iron deficiency anemia secondary to inadequate dietary iron intakeStart: 01-26-2023 End: 38-69-1377Lrromr outpatient new 30 minutesJose Rose MD Work Phone: Hematology/OncologyComment on above:Anemia, unspecified type (Primary Dx)Start: 98-59-3888Xhyvf abstractingJose Rose MD Work Phone: Hematology/OncologyStart: 01-11-2023 End: 69-14-5096cjjclshcqtRjtkmm Braun Other [employer] Other Start: 03-55-1783Fndinpess encounterMarfrandy GomezSpeedy [employer] [facility]: 01-05-2023 End: 50-98-0120eebduyimykMncbbq Braun Other [employer] Other Start: 03-10-5802Xzpcby outpatient visit 15 minutes [facility]udia Sanchez [facility]: 12-27-2022 End: 95-33-2281itojtnojvuDwgcff Braun Other [employer] Other Start: 45-21-9109Umoxgakdd encounterMarcia [facility] ClinicStart: 11-19-2022 End: 89-66-4267vyzqhkjzvcTlnjuc Gomez Other [employer] Other Start: 96-65-2498Pxzasz outpatient visit 15 minutes Klaudia Mendoza [facility] ClinicStart: 10-27-2022 End: 76-38-4033tusqqozpzaTlthud Gomez Other [employer] Other Start: 65-08-4049Fusodljvi encounterMarcikennedy [facility] ClinicStart: 10-07-2022 End: 04-80-4750zqudpbxasnIlszcy Gomez Other [employer] Other Start: 84-24-1457Uqoofr outpatient visit 15 minutes Klaudia GomezH[facility] Reji [facility] ClinicStart: 33-07-0868Fkxordjek for general adult medical examination without abnormal findingsDR KLAUDIA GOMEZMercy Health Urbana Hospitaltart: 08-28-2022 End: 66-81-2730lemwfvesqxTX KLAUDIA GOMEZFacility:L1Fbpkt: 08-28-2022 End: 51-04-0867Rtfskmhcj for general adult medical examination without abnormal findingsDR KLAUDIA GOMEZFacility:F0Nkknx: 08-23-2022 End: 72-38-8800xtkmnwpbefIttwzs Gomez Other [employer] Other Start: 35-25-9568Vqusmxsqx for general adult medical examination without abnormal findingsMarcia [facility] ClinicStart: 50-78-1677Kbhmbghg preventive med est patient 40-64yrsMarcia [facility] ClinicStart: 03-16-2022 End: 49-14-6051ldtjcikiwgII JONAS SANDERS .Facility:Z2Jyjrt: 03-10-2022 End: 41-38-6009gczbvctxddRS KLAUDIA GOMEZFacility:Y2Owhis: 10-05-2022 Gynecological examination normalMarcia Gomez Other [employer] Other Start: 02-17-2022 End: 38-03-1576qbiomaskjiCX KLAUDIA Friedman JASONFacility:F3Lkxvb: 12-28-2021 End: 28-32-0433dzjjpkbgreEQ DOCTOR MISCFacility:Z8Wbsvy: 12-25-2021 End: 37-55-3949Cnndj health examinationKlaudia Gomez Other [facility] [employer] Other Procedures DateProcedureProcedure DetailPerforming ClinicianStart: 20-61-4261Wmraf dip stick/tablet rgnt non-auto w/o micrscpMona J Nataprawira DO Work Phone: start: 40-66-8233Djaa bld gluc mntr dev cleared fda spec home useAhnaye Chang MD Work Phone: Start: 64-86-3144Nslzu dip stick/tablet rgnt non-auto w/o micrscpMona J Nataprawira DO Work Phone: start: 99-28-1414Ilzm bld gluc mntr dev cleared fda spec home useCamilo Chang MD Work Phone: Start: 82-86-0268BliaotbnotieuhobxeggivjesxQwojra Braun MD Work Phone: Start: 95-54-2596Wtjjv dip stick/tablet rgnt non-auto w/o micrscpMona J Nataprawira DO Work Phone: start: 16-75-5080Fensv spine thoracic 3 Katelin Nunez NP Work Phone: Start: 04-50-1317XdqqaimnwwqHwfo Nataprawira DO Work Phone: start: 30-09-9200Iggdf dip stick/tablet rgnt non-auto w/o micrscpMona J Nataprawira DO Work Phone: start: 38-98-3264Crthz dip stick/tablet rgnt non-auto w/o micrscpMona J DianCold [employer] Work Phone: start: 79-71-7252KGY Irvin Vila NubisioanyiCold [employer] Work Phone: start: 82-30-0489Vswzw X-ray of left handMD Klaudia Gomez Work Phone: Start: 62-18-1216Ltlbt X-ray of left wristMD Klaudia Gomez Work Phone: Start: 80-74-4241UX LHC & COR AngioMD Klaudia Gomez Work Phone: Start: 17-89-1165JE Stent 1st Vessel CX DESMD Klaudia Gomez Work Phone: Start: 60-97-9300MR Stent 1st Vessel LAD DESMKiran Gomez Work Phone: Start: 07-12-1025ID Klaudia Gomez Work Phone: Start: 46-23-5399Pxsvmjyhxoxo myocardial perfusion stress studyMD Klaudia Gomez Work Phone: Start: 98-64-3684Odezsznhulg observation [Identifier] in Cervix by Cyto stainPura DianCold [employer] Work Phone: start: 71-34-6069RGHUIGQH TIS PAP AND HPV MRNA E6/E7 REFLEX HPV 16,18/45 (00459)Pura Vila [employer] Work Phone: start: 21-67-1055KkhjylkmbscXqlzn Ambaldoiti LPNStart: 02-09-2018 End: 07-58-9315Jxwcagh examination of patientKlaudia Gomez Other Start: 02-09-2018 End: 16-91-4767Gyxwjvwit mammographyChayacia Jason Other Screening for malignant neoplasm of breastChayacia Jason Other Screening for malignant neoplasm of colonChayacia Jason Other Plan of Treatment DateCare ActivityDetailAuthorStart: 92-01-1999BBN Vaccine (1 - 1-dose 75+ series)RSV Vaccine (1 - 1-dose 75+ series)[facility]: 41-24-8482Ctvkw microalbumin profileDTaP,Tdap,Td Vaccine (2 - Td or Tdap)[facility]: 47-51-4949Xzpbaqgmt for malignant neoplasm of cervixNOMS HealthcareStart: 29-66-8959Abkcllpf ScreeningDiabetes ScreeningPomerene Hospitaltart: 10-16-2027 Diabetes ScreeningDiabetes ScreeningPomerene Hospitaltart: 73-27-8407Lidjziog ScreeningDiabetes ScreeningPomerene Hospitaltart: 36-09-4138Gcamonfp Screening Diabetes ScreeningPomerene Hospitaltart: 37-19-6286Lnygsgje ScreeningDiabetes ScreeningPomerene Hospitaltart: 18-37-0675Ucesqlti ScreeningDiabetes Screening [facility]: 84-30-3538Wvlaoqwj ScreeningDiabetes ScreeningPomerene Hospitaltart: 06-37-9249Tprsmrfo ScreeningDiabetes ScreeningBarney [facility] Start: 57-75-0376Ytqlshkk ScreeningDiabetes ScreeningPomerene Hospitaltart: 25-21-5738Pevepsju ScreeningDiabetes ScreeningPomerene Hospitaltart: 02-18-2026 Screening for malignant neoplasm of cervixPap SmearNOMS HealthcareStart: 04-89-7483Gllgmfst ScreeningDiabetes ScreeningPomerene Hospitaltart: 06-10-2025 End: 96-66-4250Aflghmq encounter oyoagepwm33/26/2026 9:40 AM EST Office Visit [facility] [address] [place] [address] Camilo Chang MD [address] [place] [address] T[facility]O [place] EndocrinologyStart: 68-39-1040Dcigzywwz for malignant neoplasm of breastNOMS HealthcareStart: 03-07-2025 End: 45-66-7928Lljvapf encounter lwnzwnpia35/23/2025 3:30 PM EDT Office Visit AZARMarlena Durant ARTEM [address] [place] [address] [facility] [address] [place] [phone] Pura Lara DO [address] [phone] [facility] Start: 02-20-2025 End: 10-25-7664Vvjdhx-up mypqwvuac61/08/2025 1:30 PM EDT Visit (SP) Office Hematology/Oncology [address] [place], [place] [phone] Maite Merritt PA-C [address] [place] [address] 12 week follow upHematology/OncologyComment on above:12 week follow upStart: 02-14-2025 End: 39-96-1348Rvtekdk evaluation of patient and dejqfj2702/14/2025 2:00 PM EDT Nurse Visit Hematology/Oncology [address] [place] [address] Mervin Yoo Nurse Edmund [address] [place] [address] B 12 inj q 4 weeks / Start on 7-5-86Zvdczpenui/OncologyComment on above:B 12 inj q 4 weeks / Start on 12-20-24Start: 02-14-2025 End: 08-76-3290Pzjuphi encounter cabmxxpay94/02/2025 1:45 PM EDT Office Visit [facility] [address] [facility] [place] [address] 11 week labNortUniversity of [facility] Comment on above:11 week labStart: 02-11-2025 End: 44-06-3100Tcxdn 1996 panel - Serum or PlasmaLipid panel Lab Routine Type 2 diabetes mellitus with hyperglycemia, without long-term current use of insulin (HCC) Expected: 02/11/2025 (Approximate), Expires: 02/11/2026[facility] Work Phone: Comment on above:Expected: 02/11/2025 (Approximate), Expires: 02/11/2026Start: 02-11-2025 End: 47-87-7771Fpcbbab encounter procedureNOHCA MIDWEST DIVISION ENDOCRINOLOGYComment on above: Type 2 diabetes mellitus with hyperglycemia, without long-term current use of insulin (HCC)Start: 01-23-2025 End: 07-56-2278Ttccuve encounter procedureNONEVADA [facility] OBStart: 01-17-2025 End: 76-09-7319Breinqw evaluation of patient and ksjqoz7401/17/2025 2:00 PM EDT Nurse Visit Hematology/Oncology [address] [place] [address] [phone] Mervin Yoo Nurse Edmund [address] [place] [address] B 12 inj q 4 weeks / Start on 1-3-86Fhvqqjzofx/OncologyComment on above:B 12 inj q 4 weeks / Start on 12-20-24Start: 11-66-2978Bfjrnvlcz vaccination [facility]: 12-20-2024 End: 67-90-3938Pqxrmnq evaluation of patient and wnxzcx0912/20/2024 2:00 PM EDT Nurse Visit Hematology/Oncology [address] [place] [address] [place] [address] Mervin Yoo Nurse Edmund [address] [place] [address] [place] [address] B 12 inj q 4 weeks / Start on 7-5-81Hjpmhliyxh/OncologyComment on above:B 12 inj q 4 weeks / Start on 12-20-24Start: 11-28-2024 End: 64-82-8528FEC W Auto Differential panel - BloodCOMPLETE BLOOD COUNT AND DIFFERENTIAL Lab Routine Iron deficiency anemia secondary to inadequate dietary iron intake Folate deficiency Megaloblastic anemia due to vitamin B12 deficiency Expected: 11/28/2024, Expires: 02/27/2025[facility] ClinicComment on above: Expected: 11/28/2024, Expires: 02/27/2025Start: 11-28-2024 End: 77-49-9335Fjcjwilop (Vitamin B12) [Mass/volume] in Serum or PlasmaVITAMIN B12 Lab Routine Iron deficiency anemia secondary to inadequate dietary iron intake Folate deficiency Megaloblastic anemia due to vitamin B12 deficiency Expected: 11/28/2024, Expires: 02/27/2025[facility] ClinicComment on above: Expected: 11/28/2024, Expires: 02/27/2025Start: 11-28-2024 End: 43-17-1730Qtomntvmlymgk metabolic 2000 panel - Serum or PlasmaCOMPREHENSIVE METABOLIC PANEL Lab Routine Iron deficiency anemia secondary to inadequate dietary iron intake Folate deficiency Megaloblastic anemia due to vitamin B12 deficiency Expected: 11/28/2024,Expires: 02/27/2025[facility] Work Phone: Comment on above:Expected: 11/28/2024, Expires: 02/27/2025Start: 11-28-2024 End: 03-98-0238Ayvyloic [Mass/volume] in Serum or PlasmaFERRITIN Lab Routine Iron deficiency anemia secondary to inadequate dietary iron intake Folate defic iency Megaloblastic anemia due to vitamin B12 deficiency Expected: 11/28/2024, Expires: 02/27/2025[facility] ClinicComment on above:Expected: 11/28/2024, Expires: 02/27/2025Start: 11-28-2024 End: 13-76-1384Hiygtj [Mass/volume] in Serum or PlasmaFOLATE, SERUM Lab Routine Iron deficiency anemia secondary to inadequate dietary iron intake Folate deficiency Megaloblastic anemia due to vitamin B12 deficiency Expected: 11/28/2024, Expires: 02/27/2025[facility] ClinicComment on above:Expected: 11/28/2024, Expires: 02/27/2025Start: 11-28-2024 End: 48-03-6805Rrcdcx-up fsnobhpoo41/16/2025 2:00 PM EDT Visit (SP) Office Hematology/Oncology [address] [place], [place] [phone] Maite Merritt, PA-C [address] [place] [address] 3 month follow up / Lab and B 12 on 7-9-89Ghfefiiesu/Oncology Comment on above:3 month follow up / Lab and B 12 on 11-21-24Start: 11-28-2024 End: 89-05-1031Hmme and Iron binding capacity panel - Serum or PlasmaIRON AND TIBC Lab Routine Iron deficiency anemia secondary to inadequate dietary iron intake Folatedeficiency Megaloblastic anemia due to vitamin B12 deficiency Expected: 11/28/2024, Expires: 02/27/2025[facility] ClinicComment on above: Expected: 11/28/2024, Expires: 02/27/2025Start: 11-21-2024 End: 04-96-5015Xwbqmpq evaluation of patient and dkujvn2711/21/2024 2:15 PM EDT Nurse Visit Hematology/Oncology [address] [place] [address] [place] [address] [phone] Mervin Yoo Nurse Edmund [address] [place] [address] B 12 q 4 weeksHematology/OncologyComment on above:B 12 q 4 weeksStart: 11-21-2024 End: 34-70-5804Kqdiqlh encounter fkluysryx96/09/2025 2:00 PM EDT Office Visit [facility] [place] [address] Lab todayNortUniversity of [facility] Comment on above:Lab todayStart: 10-24-2024 End: 49-86-6748Mtniaov evaluation of patient and szsdhc2810/24/2024 2:00 PM EDT Nurse Visit Hematology/Oncology [facility] [place] [address] [phone] Mervin Yoo Nurse Edmund [address] [place] [address] B 12 q 4 weeksHematology/OncologyComment on above:B 12 q 4 weeksStart: 10-22-2024 End: 82-81-0638Elvhzzb encounter procedureNOMS NB OBComment on above:Encounter for pessary maintenance (Primary Dx); Fitting and adjustment of pessary; Cystocele, midline; Mixed urge and stress incontinenceStart: 10-15-2024 End: 695872-hwjmohppasfyjk D3 [Mass/volume] in Serum or PlasmaVitamin D 25 hydroxy Total Lab Routine Type 2 diabetes mellitus with hyperglycemia, without long-term current use of insulin ([facility]) Expected: 10/15/2024 (Approximate), Expires: 10/15/2025[facility] HospitalComment on above:Expected: 10/15/2024 (Approximate), Expires: 10/15/2025Start: 10-15-2024 End: 33-73-2144S-peptideC-peptide Lab Routine Type 2 diabetes mellitus with hyperglycemia, without long-term current use ofinsulin ([facility]) Expected: 10/15/2024 (Approximate), Expires: 10/15/2025[facility] Work Phone: Comment on above:Expected: 10/15/2024 (Approximate), Expires: 10/15/2025Start: 10-15-2024 End: 79-93-2447Zttta 1996 panel - Serum or PlasmaLipid panel Lab Routine Type 2 diabetes mellitus with hyperglycemia, without long-term current use of insulin ([facility]) Expected: 10/15/2024 (Approximate), Expires: 10/15/2025[facility] Comment on above:Expected: 10/15/2024 (Approximate), Expires: 10/15/2025Start: 10-15-2024 End: 99-20-9579Sideipyoiutl/Creatinine panel in random UrineMicroalbumin / creatinine urine ratio Lab Routine Type 2 diabetes mellitus with hyperglycemia, without long-term current use of insulin ([facility]) Expected: 10/15/2024 (Approximate), Expires: 10/15/2025[facility] HospitalComment on above:Expected: 10/15/2024 (Approximate), Expires: 10/15/2025Start: 10-15-2024 End: 98-21-3741Scsqm function panelRenal function panel Lab Routine Type 2 diabetes mellitus with hyperglycemia, without long-term current use of insulin ([facility]) Expected: 10/15/2024 (Approximate), Expires: 10/15/2025[facility] Comment on above:Expected: 10/15/2024 (Approximate), Expires: 10/15/2025Start: 10-15-2024 End: 20-43-5794Qjtvpecgnevaf AntibodyThyroglobulin Antibody Lab Routine Type 2 diabetes mellitus with hyperglycemia, without long-term current use of insulin ([facility]) Expected: 10/15/2024 (Approximate), Expires: 10/15/2025[facility] Comment on above:Expected: 10/15/2024 (Approximate), Expires: 10/15/2025Start: 10-15-2024 End: 50-63-3980Iyosukh peroxidase antibodyThyroid peroxidase antibody Lab Routine Type 2 diabetes mellitus with hyperglycemia, without long-term current use of insulin ([facility]) Expected: 10/15/2024 (Approximate), Expires: 10/15/2025 [facility] HealthcareComment on above:Expected: 10/15/2024 (Approximate), Expires: 10/15/2025Start: 10-15-2024 End: 07-22-3649Zrgkzoyannu [Units/volume] in Serum or PlasmaTSH Lab Routine Type 2 diabetes mellitus with hyperglycemia, without long-term current use of insuli n ([facility]) Expected: 10/15/2024 (Approximate), Expires: 10/15/2025[facility] HealthcareComment on above:Expected: 10/15/2024 (Approximate), Expires: 10/15/2025Start: 10-15-2024 End: 32-10-5589Uppokgoic (T4) free [Mass/volume] in Serum or PlasmaT4, free Lab Routine Type 2 diabetes mellitus with hyperglycemia, without long-term current use of insulin ([facility]) Expected: 10/15/2024 (Approximate), Expires: 10/15/2025 [facility] HealthcareComment on above:Expected: 10/15/2024 (Approximate), Expires: 10/15/2025Start: 10-15-2024 End: 49-58-4272Ahakuaovpauhtktq (T3) Free [Mass/volume] in Serum or PlasmaT3, free Lab Routine Type 2 diabetes mellitus with hyperglycemia, without long-term current use of insulin ([facility]) Expected: 10/15/2024 (Approximate), Expires: 10/15/2025[facility] HealthcareComment on above:Expected: 10/15/2024 (Approximate), Expires: 10/15/2025Start: 10-15-2024 End: 72-99-0481Dcvxxqh encounter lrufibxcg67/02/2025 10:10 AM EDT Office Visit [facility] [address] [place] [address] Camilo Chang MD [address] [place] [address] Type 2 diabetes mellitus with hyperglycemia, without long-term current use of insulin (CMS/HCC)[facility] ENDOCRINOLOGYComment on above: Type 2 diabetes mellitus with hyperglycemia, without long-term current use of insulin (CMS/HCC)Start: 63-46-8845BkmexorjhFlower Hospitaltart: 09-26-2024 End: 98-78-0630Iiwdlhs evaluation of patient and oyvlui6009/26/2024 2:00 PM EDT Nurse Visit Hematology/Oncology [address] [place] [address] Mervin Yoo Nurse Edmund [address] [place] [address] B 12 q 4 weeksHematology/OncologyComment on above:B 12 q 4 weeksStart: 08-29-2024 End: 06-84-3004Ustxuor evaluation of patient and reportHematology/Oncology Comment on above:12 week follow up with lab and B12 sameday Maite-Pt REQ TO KEEP APPT AFTER 212 week follow up with lab and B12 (sameday Maite)-Pt REQ TO KEEP APPT AFTER 2Start: 08-29-2024 End: 42-74-6472Bissdn-up jzyqzexqg17/16/2025 2:30 PM EDT Visit (SP) Office Hematology/Oncology [address] [place], [place] [phone] Maite Merritt PA-C [address] [place] [address] 12 week follow up with lab and B12 sameday Maite-Pt REQ TO KEEP APPT AFTER 2Hematology/OncologyComment on above:12 week follow up with lab and B12 sameday Maite-Pt REQ TO KEEP APPT AFTER 2Start: 08-29-2024 End: 33-12-2754Jxatgnz encounter dfckrnahl88/16/2025 2:15 PM EDT Office Visit [facility] [address] [place] [address] 12 week follow up with lab and B12 sameday Maite-Pt REQ TO KEEP APPT AFTER 2N[facility] LaboratoryComment on above: 12 week follow up with lab and B12 sameday Maite-Pt REQ TO KEEP APPT AFTER 2 Start: 08-29-2024 End: 36-00-4712NDZ/ABL1 P210 AND P190 DIAGNOSTIC PCR BLOODBarney [facility] Comment on above:Expected: 08/29/2024, Expires: 11/28/2024Start: 08-29-2024 End: 67-19-9810MKB W Auto Differential panel - BloodCOMPLETE BLOOD COUNT AND DIFFERENTIAL Lab Routine Other elevated white blood cell (WBC) count Expected: 08/29/2024, Expires: 11/28/2024[facility] ClinicComment on above:Expected: 08/29/2024, Expires: 11/28/2024Start: 08-29-2024 End: 76-25-4000Jfueeesfn (Vitamin B12) [Mass/volume] in Serum or PlasmaVITAMIN B12 Lab Routine Other elevated white blood cell (WBC) count Expected: 08/29/2024, Expires: 11/28/2024[facility] ClinicComment on above:Expected: 08/29/2024, Expires: 11/28/2024Start: 08-29-2024 End: 75-34-3824Umbeezznnmzmo metabolic 2000 panel - Serum or PlasmaCOMPREHENSIVE METABOLIC PANEL Lab Routine Other elevated white blood cell (WBC) count Expected: 08/29/2024, Expires: 11/28/2024[facility] ClinicComment on above: Expected: 08/29/2024, Expires: 11/28/2024Start: 08-29-2024 End: 31-93-7759Tznshoiu [Mass/volume] in Serum or PlasmaFERRITIN Lab Routine Other elevated white blood cell (WBC) count Expected: 08/29/2024, Expires: 11/13[facility] ClinicComment on above:Expected: 08/29/2024, Expires: 11/28/2024 Start: 08-29-2024 End: 96-44-8366Gaqozp [Mass/volume] in Serum or PlasmaFOLATE, SERUM Lab Routine Other elevated white blood cell (WBC) count Expected: 08/29/2024, Expires: 11/28/2024[facility] ClinicComment on above:Expected: 08/29/2024, Expires: 11/28/2024Start: 08-29-2024 End: 71-23-9439Fgfe and Iron binding capacity panel - Serum or PlasmaIRON AND TIBC Lab Routine Other elevated white blood cell (WBC) count Expected: 08/29/2024, Expires: 11/28/2024[facility] ClinicComment on above:Expected: 08/29/2024, Expires: 11/28/2024Start: 08-29-2024 End: 96-48-9712MSMQIAUVZZDYRHAALS NEOPLASM PANEL BLOODAccess [facility] Work Phone: Comment on above:Expected: 08/29/2024, Expires: 11/28/2024Start: 08-22-2024 End: 06-08-5670xvcmwjqmkh08/09/2025 8:00 AM EDT Results Only [facility] [address] [place] [id number] Megaloblastic anemia due to vitamin B12 deficiency [D53.1][facility] LaboratoryComment on above:Megaloblastic anemia due to vitamin B12 deficiency [D53.1]Start: 08-20-2024 End: 50-28-1915BLB W Auto Differential panel - BloodCOMPLETE BLOOD COUNT AND DIFFERENTIAL Lab Routine Malaise and fatigue Expected: 08/20/2024, Expires: 11/19/2024[facility] ClinicComment on above:Expected: 08/20/2024, Expires: 11/19/2024Start: 08-20-2024 End: 61-79-5653Fcjsegiii (Vitamin B12) [Mass/volume] in Serum or PlasmaVITAMIN B12 Lab Routine Megaloblastic anemia due to vitamin B12 deficiency Malaise and fatigue Expected: 08/20/2024, Expires: 11/19/2024[facility] ClinicComment on above:Expected: 08/20/2024, Expires: 11/19/2024Start: 08-20-2024 End: 40-75-2460Krvorlkyffqdj metabolic 2000 panel - Serum or PlasmaCOMPREHENSIVE METABOLIC PANEL Lab Routine Malaise and fatigue Expected: 08/20/2024, Expires: 11/19/2024[facility] ClinicComment on above:Expected: 08/20/2024, Expires: 11/19/2024Start: 08-20-2024 End: 15-42-2203Opxyzltd [Mass/volume] in Serum or PlasmaFERRITIN Lab Routine Iron deficiency anemia secondary to inadequate dietary iron intake Malaise and fatigue Expected: 08/20/2024, Expires: 11/19/2024[facility] ClinicComment on above:Expected: 08/20/2024, Expires: 11/19/2024Start: 08-20-2024 End: 45-26-8076Isvwnw [Mass/volume] in Serum or PlasmaFOLATE, SERUM Lab Routine Megaloblastic anemia due to vitamin B12 deficiency Folate deficiency Malaise and fatigue Expected: 08/20/2024, Expires: 11/19/2024[facility] ClinicComment on above:Expected: 08/20/2024, Expires: 11/19/2024Start: 08-20-2024 End: 18-29-3035Gasz and Iron binding capacity panel - Serum or PlasmaIRON AND TIBC Lab Routine Iron deficiency anemia secondary to inadequate dietary iron intake Malaise and fatigue Expected: 08/20/2024, Expires: 11/19/2024[facility] ClinicComment on above:Expected: 08/20/2024, Expires: 11/19/2024Start: 08-20-2024 End: 09-98-6287Mlvukor dehydrogenase [Enzymatic activity/volume] in Serum or PlasmaLACTATE DEHYDROGENASE Lab Routine Malaise and fatigue Expected: 08/20/2024, Expires: 11/19/2024[facility] Work Phone: Comment on above:Expected: 08/20/2024, Expires: 11/19/2024Start: 08-20-2024 End: 68-24-0539PANICUDNZSXG COUNTRETICULOCYTE COUNT Lab Routine Iron deficiency anemia secondary to inadequate dietary iron intake Malaise and fatigue Expected: 08/20/2024, Expires: 11/19/2024[facility]Comment on above:Expected: 08/20/2024, Expires: 11/19/2024Start: 07-31-2024 End: 08-48-4889Bepcozz evaluation of patient and napapz3007/31/2024 2:30 PM EDT Nurse Visit Hematology/Oncology [address] [place] [address] Mervin Yoo Nurse Edmund [address] [place] [address] [place] [address] M65Vnjheexvdu/OncologyComment on above:X12Ovakw: 07-23-2024 End: 93-32-4490Zlbjgse encounter tmqcjublc78/10/2025 3:30 PM EDT Office Visit [facility] [address] [place] [address] [phone] Pura Lara DO [address] [address] [facility] OBStart: 07-03-2024 End: 08-44-0946Plbdbcz evaluation of patient and fcwgib8907/03/2024 2:30 PM EST Nurse Visit Hematology/Oncology [address] [place] [address] [place] [address] Mervin Yoo Nurse Edmund [address] [place] [address] X47Yivvjjophw/OncologyComment on above:V68Ecqxw: 06-14-2024 End: 11-10-4945GUG W Auto Differential panel - BloodCOMPLETE BLOOD COUNT AND DIFFERENTIAL Lab Routine Iron deficiency anemia secondary to inadequate dietary iron intake Megaloblastic anemia due to vitamin B12 deficiency Folate deficiency Expected: 06/14/2024 (Approximate), Expires: 09/13/2024[facility] ClinicComment on above:Expected: 06/14/2024 (Approximate), Expires: 09/13/2024Start: 06-14-2024 End: 38-55-4286Xbkbuqdsu (Vitamin B12) [Mass/volume] in Serum or PlasmaVITAMIN B12 Lab Routine Iron deficiency anemia secondary to inadequate dietary iron intake Megaloblastic anemia due to vitamin B12 deficiency Folate deficiency Expected: 06/14/2024 (Approximate), Expires: 09/13/2024[facility] ClinicComment on above:Expected: 06/14/2024 (Approximate), Expires: 09/13/2024Start: 06-14-2024 End: 80-65-2536Swhrtvklmzjhv metabolic 2000 panel - Serum or PlasmaCOMPREHENSIVE METABOLIC PANEL Lab Routine Iron deficiency anemia secondary to inadequate dietary iron intake Megaloblastic anemia due to vitamin B12 deficiency Folate deficiency Expected: 06/14/2024 (Approximate), Expires: 09/13/2024[facility] ClinicComment on above:Expected: 06/14/2024 (Approximate), Expires: 09/13/2024 Start: 06-14-2024 End: 13-72-8068Ngyxuaep [Mass/volume] in Serum or PlasmaFERRITIN Lab Routine Iron deficiency anemia secondary to inadequate dietary iron intake Megaloblastic anemia due to vitamin B12 deficiency Folate deficiency Expected: 06/14/2024 (Approximate), Expires: 09/13/2024[facility] ClinicComment on above:Expected: 06/14/2024 (Approximate), Expires: 09/13/2024Start: 06-14-2024 End: 18-18-1628Vmumiz [Mass/volume] in Serum or PlasmaFOLATE, SERUM Lab Routine Iron deficiency anemia secondary to inadequate dietary iron intake Megaloblastic anemia due to vitamin B12 deficiency Folate deficiency Expected: 06/14/2024 (Approximate), Expires: 09/13/2024[facility] ClinicComment on above:Expected: 06/14/2024 (Approximate), Expires: 09/13/2024Start: 06-14-2024 End: 10-11-6521Afvu and Iron binding capacity panel - Serum or PlasmaIRON AND TIBC Lab Routine Iron deficiency anemia secondary to inadequate dietary iron intake Megaloblastic anemia due to vitamin B12 deficiency Folate deficiency Expected: 06/14/2024 (Approximate), Expires: 09/13/2024[facility] ClinicComment on above:Expected: 06/14/2024 (Approximate), Expires: 09/13/2024Start: 06-14-2024 End: 02-10-1134Mfysiqp dehydrogenase [Enzymatic activity/volume] in Serum or PlasmaLACTATE DEHYDROGENASE Lab Routine Iron deficiency anemia secondary to inadequate dietary iron intake Megaloblastic anemia due to vitamin B12 deficiency Folate deficiency Expected: 06/14/2024 (Approximate), Expires: 09/13/2024[facility] Work Phone: Comment on above:Expected: 06/14/2024 (Approximate), Expires: 09/13/2024Start: 06-14-2024 End: 46-99-2918WRLNVKTJENDN COUNTRETICULOCYTE COUNT Lab Routine Iron deficiency anemia secondary to inadequate dietary iron intake Megaloblastic anemia due to vitamin B12 deficiency Folate deficiency Expected: 06/14/2024 (Approximate), Expires: 09/[facility]/20[facility]:Expected: 06/14/2024 (Approximate), Expires: 09/13/2024Start: 06-06-2024 End: 42-67-1109Ftjhfmm evaluation of patient and lsgdsi1106/06/2024 3:00 PM EST Nurse Visit Hematology/Oncology [address] [place] [address] [place] [address] Mervin Yoo Nurse Edmund [address] [place] [address] [place] [address] 12 week follow up with lab and B12 samedayHematology/OncologyComment on above:12 week follow up with lab and B12 samedayStart: 06-06-2024 End: 63-25-3067Lelvkf-up ivauzuixy96/22/2025 2:30 PM EST Visit (SP) Office Hematology/Oncology [address] [place], [place] [phone] Maite Merritt, PA-C [address] [place] [address] 12 week follow up lab and B 12 injHematology/OncologyComment on above:12 week follow up lab and B 12 injStart: 06-06-2024 End: 25-51-8064Pcotkzq encounter gwfzkpnbo85/22/2025 2:15 PM EST Office Visit [facility] [address] [facility], [place] [address] 12 week follow up with lab same day and B 12 injNortUniversity of Michigan Health–West LaboratoryComment on above:12 week follow up with lab same day and B 12 injStart: 05-10-2024 End: 51-07-4252Oembacs evaluation of patient and mikigs3805/10/2024 2:00 PM EST Nurse Visit Hematology/Oncology [address] [place] [address] Mervin Yoo Nurse Edmund [address] [facility] [place] [address] B 12 inj q 4 weeksHematology/OncologyComment on above:B 12 inj q 4 weeks Start: 04-11-2024 End: 06-01-9046Rxwkfpo evaluation of patient and oohdma8304/11/2024 2:00 PM EST Nurse Visit Hematology/Oncology [address] [facility] [place] [address] Mervin Yoo Nurse Edmund [address] [facility] [place] [address] B 12 inj q 4 weeksHematology/OncologyComment on above:B 12 inj q 4 weeks Start: 04-11-2024 End: 38-25-8832Zflryoz encounter ovydhggdf59/27/2024 10:30 AM EST Office Visit [facility] [address] [place] [address] [address] Pura Lara DO [address] [phone] [facility] NB OBStart: 04-10-2024 End: 92-09-0591vlqdtuasgg24/26/2024 3:00 PM EST Infusion Center Hematology/Oncology [address] [place] [address] VENOFER 200 MG IVP X5 + B51Ehljtjtrcv/OncologyComment on above:VENOFER 200 MG IVP X5 + H45Whxhs: 04-05-2024 End: 35-73-8435btbjhzfhsq34/21/2024 3:00 PM EST Infusion Center Hematology/Oncology [address] [place] [address] VENOFER 200 MG IVP N8Zczsikhejw/OncologyComment on above:VENOFER 200 MG IVP I5Jwtpf: 04-03-2024 End: 71-87-7443uagsiqgexh80/19/2024 3:00 PM EST Infusion Center Hematology/Oncology [address] [place] [address] VENOFER 200 MG IVP N1Yaxmpuhzrk/OncologyComment on above:VENOFER 200 MG IVP U2Degyg: 03-29-2024 End: 20-70-4235fphddinwtk34/14/2024 3:00 PM EST Infusion Center Hematology/Oncology [address] [place] [address] VENOFER 200 MG IVP H6Saotmflqll/OncologyComment on above:VENOFER 200 MG IVP E0Kkxav: 03-27-2024 End: 02-12-2025lzsnzcfmzv99/12/2024 3:00 PM EST Infusion Center Hematology/Oncology [address] [place] [address] VENOFER 200 MG IVP S1Igkhdpujbx/OncologyComment on above:VENOFER 200 MG IVP C3Txkfg: 03-22-2024 End: 88-10-5811Ikfvcsy encounter udrryyyvs04/07/2024 1:45 PM EST Office Visit [facility] [address] [place] D [address] [address] Pura Lara DO [address] [address] [facility] PETER OBStart: 03-14-2024 End: 94-08-1672Lnosltr evaluation of patient and reportHematology/Oncology Comment on above:12 week follow up with lab same day and B 12 inj-SEES SAAD- orders need signed date needs changed [id number] week follow up with lab and B12 sametart: 03-14-2024 End: 61-28-8132Baarjb-up ncpqdavbv60/30/2024 2:15 PM EDT Visit (SP) Office Hematology/Oncology [address] [place], [place] [phone] Jose Rose MD [address] [place] [address] [place] [address] 12 week follow up with lab same day and B 12 inj Hematology/OncologyComment on above:12 week follow up with lab same day and B 12 injStart: 03-14-2024 End: 19-56-1468WGX W Auto Differential panel - BloodCOMPLETE BLOOD COUNT AND DIFFERENTIAL Lab Routine Anemia, unspecified type Iron deficiency anemia se condary to inadequate dietary iron intake Megaloblastic anemia due to vitamin B12 deficiency Folatedeficiency Expected: 03/14/2024 (Approximate), Expires: 12/20/2024[facility] Work Phone: Comment on above:Expected: 03/14/2024 (Approximate), Expires: 12/20/2024Start: 03-14-2024 End: 79-06-5955Pujlegxeh (Vitamin B12) [Mass/volume] in Serum or PlasmaVITAMIN B12 Lab Routine Anemia, unspecified type Iron deficiency anemia secondary to inadequate dietary iron intake Megaloblastic anemia due to vitamin B12 deficiency Folate deficiency Expected: 03/14/2024 (Approximate), Expires: 12/20/2024[facility]:Expected: 03/14/2024 (Approximate), Expires: 12/20/2024Start: 03-14-2024 End: 39-93-3584Emtrhplzmxdnx metabolic 2000 panel - Serum or PlasmaCOMPREHENSIVE METABOLIC PANEL Lab Routine Anemia, unspecified type Iron deficiency anemia secondaryto inadequate dietary iron intake Megaloblastic anemia due to vitamin B12 deficiency Folate deficiency Expected: 03/14/2024 (Approximate), Expires: 12/20/2024[facility]:Expected: 03/14/2024 (Approximate), Expires: 12/20/2024Start: 03-14-2024 End: 97-38-6608Hgselegj [Mass/volume] in Serum or PlasmaFERRITIN Lab Routine Anemia, unspecified type Iron deficiency anemia secondary to inadequate dietary iron intake Megaloblastic anemia due to vitamin B12 deficiency Folate deficiency Expected: 03/14/2024 (Approximate), Expires: 12/20/2024[facility]:Expected: 03/14/2024 (Approximate), Expires: 12/20/2024Start: 03-14-2024 End: 19-78-9054Zpqegv [Mass/volume] in Serum or PlasmaFOLATE, SERUM Lab Routine Anemia, unspecified type Iron deficiency anemia secondary to inadequate dietary iron intake Megaloblastic anemia due to vitamin B12 deficiency Folate deficiency Expected: 03/14/2024 (Approximate), Expires: 12/20/2024[facility]:Expected: 03/14/2024 (Approximate), Expires: 12/20/2024Start: 03-14-2024 End: 82-22-1376Ephy and Iron binding capacity panel - Serum or PlasmaIRON AND TIBC Lab Routine Anemia, unspecified type Iron deficiency anemia secondary to inadequate dietary iron intake Megaloblastic anemia due to vitamin B12 deficiency Folate deficiency Expected: 03/14/2024 (Approximate), Expires: 12/20/2024[facility]:Expected: 03/14/2024 (Approximate), Expires: 12/20/2024Start: 03-14-2024 End: 67-83-8431Dpfcfad dehydrogenase [Enzymatic activity/volume] in Serum or PlasmaLACTATE DEHYDROGENASE Lab Routine Anemia, unspecified type Iron deficiency anemia secondary to inadequate dietary iron intake Megaloblastic anemia due to vitamin B12 deficiency Folate deficiency Expected: 03/14/2024 (Approximate), Expires: 06/13/2024[facility]:Expected: 03/14/2024 (Approximate), Expires: 06/13/2024Start: 03-14-2024 End: 90-16-7101Bcoxpft encounter /30/2024 2:00 PM EDT Office Visit [facility] [address] [place] [address] 12 week follow up with lab same day and B 12 injNortUniversity of Michigan Health–West LaboratoryComment on above:12 week follow up with lab same day and B 12 injStart: 03-14-2024 End: 35-80-3828JPXYAWBMDWOX COUNTRETICULOCYTE COUNT Lab Routine Anemia, unspecified type Iron deficiency anemia secondary to inadequate dietary iron intake Megaloblastic anemia due to vitamin B12 deficiency Folate deficiency Expected: 03/14/2024 (Approximate), Expires: 06/13/2024[facility]:Expected: 03/14/2024 (Approximate), Expires: 06/13/2024Start: 03-14-2024 End: 67-42-1635Wlsqdeiqhny [Units/volume] in Serum or PlasmaBarney Children'S Medical Center Comment on above:Expected: 03/14/2024, Expires: 06/13/2024Start: 02-15-2024 End: 84-90-8870Riyubzd evaluation of patient and dxdhut4002/15/2024 2:30 PM EDT Nurse Visit Hematology/Oncology [address] [place] [address] [place] [address] Mervin Yoo Nurse Edmund [address] [place] [address] [place] [address] 12 week follow up with lab same day and B 12 inj-SEES SAAD-orders need signed date needs changed for U91Uebukvdgnk/OncologyComment on above:12 week follow up with lab same day and B 12 inj-SEES SAAD-orders need signed date needs changed fmjX46Ovwam: 46-70-5325Hmmfaoc [facility] Work Phone: Start: 01-18-2024 End: 35-32-8000Vfvogik evaluation of patient and yhtdmr0701/18/2024 2:30 PM EDT Nurse Visit Hematology/Oncology [facility] [place] [address] [phone] Mervin Yoo Nurse Edmund [address] [place] [address] [place] [address] 12 week follow up with lab same day and B 12 inj-SEES SAAD-orders need signed date needs changed for M10Zymnsqumbj/OncologyComment on above:12 week follow up with lab same day and B 12 inj-SEES SAAD-orders need signed date needs changed xizD53Idmox: 08-57-1051Ogquv-19 Vaccine ()Covid-19 Vaccine ()[facility]: 94-37-7436Gznwp-19 Vaccine ()Covid-19 Vaccine ()[facility]: 74-17-1822Mhvnxtsei vaccinationInfluenza Vaccine (#1)[facility]: 12-26-2023 End: 25-84-8670Bfibmcd evaluation of patient and pudigs6412/26/2023 2:15 PM EDT Nurse Visit Hematology/Oncology [address] [place] [address] Mervin Yoo Nurse Edmund [address] [place] [address] 12 week follow up with lab same day and B 12 injHematology/Oncology Comment on above:12 week follow up with lab same day and B 12 injStart: 12-26-2023 End: 90-18-7002SWU W Auto Differential panel - BloodCOMPLETE BLOOD COUNT AND DIFFERENTIAL Lab Routine Anemia, unspecified type Expected: 12/26/2023 (Alexandra roximate), Expires: 10[facility]02[facility]2024[facility] Work Phone: Comment on above:Expected: 12/26/2023 (Approximate), Expires: 10/02/2024Start: 12-26-2023 End: 36-07-7843Ksfzvurmk (Vitamin B12) [Mass/volume] in Serum or PlasmaVITAMIN B12 Lab Routine Anemia, unspecified type Expected: 12/26/2023 (Approximate), Expires: 10/02/2024[facility]Comment [facility]:Expected: 12/26/2023 (Approximate), Expires: 10/02/2024Start: 12-26-2023 End: 23-10-6370Owsvxradeinlc metabolic 2000 panel - Serum or PlasmaCOMPREHENSIVE METABOLIC PANEL Lab Routine Anemia, unspecified type Expected: 12/26/2023 (Approximate), Expires: 10/02/2024[facility] ClinicComment on above:Expected: 12/26/2023 (Approximate), Expires: 10/02/2024Start: 12-26-2023 End: 57-20-4576Arqbosqi [Mass/volume] in Serum or PlasmaFERRITIN Lab Routine Anemia, unspecified type Expected: 12/26/2023 (Approximate), Expires: 10/02/2024 [facility] CenterComment [facility]:Expected: 12/26/2023 (Approximate), Expires: 10/02/2024Start: 12-26-2023 End: 80-11-0608Pvcrfr [Mass/volume] in Serum or PlasmaFOLATE, SERUM Lab Routine Anemia, unspecified type Expected: 12/26/2023 (Approximate), Expires: 10/02/2024 [facility] CenterComment on above:Expected: 12/26/2023 (Approximate), Expires: 10/02/2024Start: 12-26-2023 End: 67-87-8140Sqoxfs-up annlouize51/12/2024 2:00 PM EDT Visit (SP) Office Hematology/Oncology [address] [place] [address] [place], [place] [phone] Jose Rose MD [address] [place] [address] [place] [address] 12 week follow up with lab same day and B 12 inj Hematology/OncologyComment on above:12 week follow up with lab same day and B 12 injStart: 12-26-2023 End: 64-81-4648Afvr and Iron binding capacity panel - Serum or PlasmaIRON AND TIBC Lab Routine Anemia, unspecified type Expected: 12/26/2023 (Approximate), Expires: 10/02/2024[facility] ClinicComment on above:Expected: 12/26/2023 (Approximate), Expires: 10/02/2024Start: 12-26-2023 End: 98-90-0913Ehrsauf encounter /12/2024 1:45 PM EDT Office Visit [facility] [address] [place] [address] 12 week follow up with lab same day and B 12 injBeauregard Memorial Hospital LaboratoryComment on above:12 week follow up with lab same day and B 12 injStart: 12-21-2023 End: 28-97-2936Blyxwpn evaluation of patient and tqvwzj9612/21/2023 3:00 PM EDT Nurse Visit Hematology/Oncology [address] [place] [address] [phone] Mervin Yoo Nurse Edmund [address] [facility] [place] [address] 12 week follow up with lab same day and B 12 injHematology/Oncology Comment on above:12 week follow up with lab same day and B 12 injStart: 12-21-2023 End: 75-08-6047Ucetsm-up tihkrjtnf88/07/2024 2:30 PM EDT Visit (SP) Office Hematology/Oncology [address] [facility] [place], [place] [phone] Jose Rose MD [address] [place] [address] 12 week follow up with lab same day and B 12 inj Hematology/OncologyComment on above:12 week follow up with lab same day and B 12 injStart: 12-21-2023 End: 17-93-6284Zurygfs encounter /07/2024 2:15 PM EDT Office Visit [facility] [address] [place] [address] 12 week follow up with lab same day and B 12 injBeauregard Memorial Hospital LaboratoryComment on above:12 week follow up with lab same day and B 12 injStart: 11-28-2023 End: 27-42-0013Lyixfzh evaluation of patient and vtbejd2411/28/2023 2:00 PM EDT Nurse Visit Hematology/Oncology [address] [place] [address] [phone] Mervin Yoo Nurse Edmund [address] [place] [address] B12 q 4 weeksHematology/OncologyComment on above:B12 q 4 weeksStart: 07-61-9009XVA Vaccine (1 - 1-dose 60+ series)RSV Vaccine (1 - 1-dose 60+ series) [facility]: 10-31-2023 End: 98-46-5789Umldnid evaluation of patient and lrggft5110/31/2023 2:00 PM EDT Nurse Visit Hematology/Oncology [address] [place] [address] [place] [address] Mervin Yoo Nurse Edmund [address] [place] [address] B12 q 4 weeksHematology/OncologyComment on above:B12 q 4 weeksStart: 06-17-6574VkjlkbmylFlower Hospitaltart: 44-39-4411Iunhbtirvjsw myocardial perfusion stress studyNM talha perf SPECT rest & strFlower Hospitaltart: 91-95-5305IDVZZ Heart perfusion at rest and W stress and W radionuclide [facility]: 57-36-9392Kwywuldxru Health ScreeningBehavioral Health ScreeningPomerene Hospitaltart: 05-16-2023 Depression AssessmentDepression AssessmentPomerene Hospitaltart: 03-16-2023 Screening for malignant neoplasm of breastPomerene Hospitaltart: 02-28-2023 End: 87-64-1622JZH W Auto Differential panel - BloodCBC + DIFF Lab Routine Iron deficiency anemia secondary to inadequate dietary iron intake Expected: 02/28/2023 (Approximate), Expires: 02/08/2024[facility] Work Phone: Comment on above:Expected: 02/28/2023 (Approximate), Expires: 02/08/2024Start: 02-28-2023 End: 48-95-6198Dxmkhkflw (Vitamin B12) [Mass/volume] in Serum or PlasmaVITAMIN B12 BLOOD Lab Routine Iron deficiency anemia secondary to inadequate dietary iron intake Expected: 02/28/2023 (Approximate), Expires: 02/08/2024[facility] Work Phone: Comment on above:Expected: 02/28/2023 (Approximate), Expires: 02/08/2024Start: 02-28-2023 End: 91-09-6585Pkxhzxupykdqv metabolic 2000 panel - Serum or PlasmaCOMP METABOLIC PANEL Lab Routine Iron deficiency anemia secondary to inadequate dietary iron intakeExpected: 02/28/2023 (Approximate), Expires: 02/08/2024 [facility] Work Phone: Comment on above:Expected: 02/28/2023 (Approximate), Expires: 02/08/2024Start: 02-28-2023 End: 20-49-6076Jsybwwft [Mass/volume] in Serum or PlasmaFERRITIN BLD Lab Routine Iron deficiency anemia secondary to inadequate dietary iron intake Expected: 02/28/2023 (Approximate), Expires: 02/08/2024[facility] Work Phone: Comment on above:Expected: 02/28/2023 (Approximate), Expires: 02/08/2024Start: 02-28-2023 End: 49-82-4736Rqbjyi [Mass/volume] in Serum or PlasmaFOLATE SERUM Lab Routine Iron deficiency anemia secondary to inadequate dietary iron intake Expected: 02/28/2023 (Approximate), Expires: 02/08/2024[facility] Work Phone: Comment on above:Expected: 02/28/2023 (Approximate), Expires: 02/08/2024Start: 02-28-2023 End: 26-55-7220Tptd and Iron binding capacity panel - Serum or PlasmaIRON + TIBC Lab Routine Iron deficiency anemia secondary to inadequate dietary iron intake Expected: 02/28/2023 (Approximate), Expires: 02/08/2024[facility] Work Phone: Comment on above:Expected: 02/28/2023 (Approximate), Expires: 02/08/2024Start: 61-83-8546Pfoeh-19 Vaccine (2022- season)Covid- 19 Vaccine (2022-24 season)[facility]: 17-09-6906Ducrteyvb vaccinationPomerene Hospital[facility]: 67-44-8542CGAAEQUDEE ASSESSMENTDEPRESSION ASSESSMENTPomerene Hospitaltart: 31-06-6436Kmymldeviajx Vaccine: 50+ (1 of 1 - PCV)Pneumococcal Vaccine: 50+ (1 of 1 - PCV)[facility]: 11-21-2013 SHINGRIX VACCINE (1 of 2)SHINGRIX VACCINE (1 of 2)[facility]: 06-51-7290JSIGHEZCA (FIT-DNA)COLOGUARD (FIT-DNA)[facility]: 11-46-0031SutdbxudlblDUDGYRQIRFYMyqwemqru ClinicStart: 81-84-3400BZNCODMUVP CANCER SCREENINGCOLORECTAL CANCER SCREENINGPomerene Hospitaltart: 55-30-6615AG COLONOGRAPHYCT COLONOGRAPHYPomerene Hospitaltart: 14-99-5455QWMYVRDF SCREEN DIABETES SCREENPomerene Hospitaltart: 32-67-6812OTMVI OCCULT BLOODFECAL OCCULT BLOODPomerene Hospitaltart: 81-37-5350Pzvva 1996 panel - Serum or PlasmaLipid ScreeningPomerene Hospitaltart: 90-97-0446Ysfcr panelLipid ScreeningPomerene Hospitaltart: 64-12-8848WIOZY SCREENLIPID SCREENPomerene Hospitaltart: 11-21-2008 Screening for malignant neoplasm of colonPomerene Hospital[facility]: 11-21-2008 SIGMOIDOSCOPYSIGMOIDOSCOPYPomerene Hospitaltart: 02-93-0448VrrnodbsufcWnxiuqmbi ClinicStart: 52-01-1605AUG TESTINGHPV TESTINGPomerene Hospitaltart: 11-21-1993 Screening for malignant neoplasm of cervixHPV TestingPomerene Hospitaltart: 53-95-8084EGA TESTINGPAP TESTINGPomerene Hospitaltart: 57-37-5873Yqqcbwgzg for malignant neoplasm of cervixPomerene Hospitaltart: 32-45-5848Oyxse microalbumin profilePomerene Hospitaltart: 53-88-9110Wgoushf ScreeningAnxiety Screening [facility]: 11-66-0466Eowowgudaf ScreeningDepression Screening [facility]: 28-32-9731VAWGRLNAS C SCREENINGHEPATITIS C SCREENING [facility]: 77-02-9765Ypirfyhdo C screeningHepatitis C Screening [facility]: 49-38-5305PDA SCREENINGHIV SCREENINGBar[facility] Start: 48-97-0866JVJ screeningHIV ScreeningPomerene Hospitaltart: 05-24-1966 COVID-19 VACCINE (#1)COVID-19 VACCINE (#1)[facility]: 1965 Scre[facility] malignant ne[facility]Rank[facility] End: 05-76-8059DHK W Auto Differential panel - BloodCBC + DIFF Lab Routine Anemia, unspecified type Every 6 weeks for 4 Occurrences starting 01/26/2023 until 01/26/2024, 1 completed[facility] Work Phone: Comment on above:Every 6 weeks for 4 Occurrences starting 01/26/2023 until 01/26/2024, 1 completed End: 36-05-7228Ukbugrtex (Vitamin B12) [Mass/volume] in Serum or PlasmaVITAMIN B12 BLOOD Lab Routine Anemia, unspecified type Every 6 weeks for 4 Occurrences starting 01/26/2023 until 01/26/2024, 1 completed[facility] Work Phone: Comment on above:Every 6 weeks for 4 Occurrences starting 01/26/2023 until 01/26/2024, 1 completed End: 58-30-2567Fvtcybheeylov metabolic 2000 panel - Serum or PlasmaCOMP METABOLIC PANEL Lab Routine Anemia, unspecified type Every 6 weeks for 4 Occurrences starting 01/26/2023 until 01/26/2024, 1 [facility] Work Phone: Comment on above:Every 6 weeks for 4 Occurrences starting 01/26/2023 until 01/26/2024, 1 completedComprehensive metabolic 2000 panel - Serum or PlasmaMercy Health St. Charles HospitalComprehensive metabolic 2000 panel - Serum or [facility]edoDBT Breast - bilateral screeningBilateral screening mammogram with tomosynthesis Imaging Routine Other screening mammogram Ordered:03/22/2024[facility] Work Phone: comment on above:Ordered: 03/22/2024 End: 93-74-1074Fbdudmwj [Mass/volume] in Serum or PlasmaFERRITIN BLD Lab Routine Anemia, unspecified type Every 6 weeks for 4 Occurrences starting 01/26/2023 until 01/26/2024, 1 completed[facility] Work Phone: Comment on above:Every 6 weeks for 4 Occurrences starting 01/26/2023 until 01/26/2024, 1 completed End: 38-60-1859Agqdjw [Mass/volume] in Serum or PlasmaFOLATE SERUM Lab Routine Anemia, unspecified type Every 6 weeks for 4 Occurrences starting 01/26/2023 until 01/26/2024, 1 completed[facility] Work Phone: Comment on above:Every 6 weeks for 4 Occurrences starting 01/26/2023 until 01/26/2024, 1 completed End: 60-26-7496Libd and Iron binding capacity panel - Serum or PlasmaIRON + TIBC Lab Routine Anemia, unspecified type Every 6 weeks for 4 Occurrences starting 01/26/2023 until 01/26/2024, 1 completed[facility] Work Phone: Comment on above:Every 6 weeks for 4 Occurrences starting 01/26/2023 until 01/26/2024, 1 completedMicroalbumin [Mass/volume] in UrineMercy Health St. Charles HospitalPatient EducationEsophagitis Know your MedsBluffton Hospital Ctr Work Phone: Patient referralBluffton Hospital Ctr Work Phone: End: 03-91-1742WTNTP COUNTRETIC COUNT Lab Routine Anemia, unspecified type Every 6 weeks for 4 Occurrences starting 01/26/2023 until 01/26/2024, 1 completed [facility] Work Phone: Comdaip on above:Every 6 weeks for 4 Occurrences starting 01/26/2023 until 01/26/2024, 1 completedUS Heart TransthoracicUnity [facility] Immunizations Immunization DateImmunizationNotesCare WwedzymaErodhyta46-08-6915ycqgqma toxoid, reduced diphtheria toxoid, and acellular pertussis vaccine, adsorbedMa Sand Work Phone: [facility] CenterZogzfl17-65-2883Appippgci, injectable, Madin Lin Canine Kidney, preservative free, quadrivalentJose Rose MD Work Phone: [facility] Medical CenterWylujk90-83-1974wyhpgangu virus vaccine, unspecified formulationMa Sand Work Phone: [facility] Medical CenterIsbwku10-02-8557FOTRH-27 Ad26.COV2.S (Jonny)MD Klaudia Gomez Work Phone: [facility] Payers DatePayer CategoryPayerPolicy [id number] [facility] [id number]57164.34491-59-2499Qikogri 1.2.840.686337.1.13.159.2.7.3.316[id number] [id number] 2.0.1.275052.3.57[id number] 2..1.264581.3.57[id number] 2.0.1.585571.3.57[id number] 2.0.1.796179.3.57[id number] 2.0.1.418511.3.57[id number] 2.840.1.511068.3.57[id number] 2.840.1.475159.3.57[id number] 2.0.1.782223.3.57[id number] 2.840.1.300118.3.579.[id number] 2..1.760672.3.57[id number] 2.0.1.465767.3.57[id number] 2..1.083631.3.579.2.91[id number] 2..1.429096.3.57[id number] 2..1.697032.3.57[id number] 2..1.980779.3.57[id number] 2..1.872854.3.579.2.302613-07-8042Ytul Cross Blue [id number] 2..[id number] 2..[id number] 2..1.3[id number] 2.0.1.500746.3.579.2.531 [id number] 2.84[id number] 2.0.1.668272.3.579.2.531 Social History DateTypeDetailFacilityUnknown if ever smokedNorth Medlio Other Start: 01-26-2023 End: 94-32-7466Jar Assigned At BirthBarney Children'S Medical CenterTobacco smoking status NHIS Tobacco smoking consumption unknownPomerene Hospitaltart: 01-21-2023 End: 11-13-7669Zaqjjlr intakeCurrent drinker of alcohol (finding)[facility]: 28-52-4717Brm Assigned At BirthNot on filePomerene Hospitaltart: 01-26-2023 End: 55-81-3623Fymwxyj smoking status NHISNever smoked tobaccoBarney Children'S Medical Center Start: 01-26-2023 End: 24-28-5671Quaxugl use and exposureSmokeless tobacco non-userPomerene Hospitaltart: 01-26-2023 End: 36-10-1010Mchciom of Social functionPomerene Hospitaltart: 04-16-2012 End: 64-98-5829Bogaizcy Score (1-100), lower number is lower ocgx30CkvhkaukhPomerene Hospitaltart: 23-06-4913Smy Assigned At BirthFeTuscarawas Hospitaltart: 53-39-3716Fpfylcf Comment1-2 drinks 2-4 x a month in the past year [facility] HospitalStart: 08-21-2024 End: 24-01-0948AiuTxghes (finding)[facility] Medical Equipment Procedure CodeEquipment CodeEquipment Original TextEquipment IdentifierDates Start: 24-88-2670ZC STENT SUNITHA FRONTIER 2.75 X 15FDAStart: 72-03-6921CP STENT SUNITHA FRONTIER 3.5 X 18FDAStart: 18-36-9425ZE STENT SUNITHA FRONTIER 2.75 X 15FDA Start: 74-66-4729RW STENT SUNITHA FRONTIER 3.5 X 18FDAStart: 61-47-9609DR STENT SUNITHA FRONTIER 2.75 X 15FDAStart: 91-47-9530OY STENT SUNITHA FRONTIER 3.5 X 18FDA Start: 02-66-9949HI STENT SUNITHA FRONTIER 2.75 X 15FDAStart: 63-90-5764IO STENT SUNITHA FRONTIER 3.5 X 18FDAStart: 66-91-4693ZT STENT SUNITHA FRONTIER 2.75 X 15FDA Start: 85-04-8331XP STENT SUNITHA FRONTIER 3.5 X 18FDAStart: 07-08-2023 Goals DatePatient GoalDesired Activity/State Functional Status UqshSrtlcqopgdNvatkbJsgvnyiw92-57-1729Lbrkfeh Health Questionnaire 2 item (PHQ- 2) [Reported][facility]ty HospitalPmpgmllrci96-56-7292Qqgkrzfvnn statusPatient at Baseline [facility] Work Phone: Mental Status ZhcvHzsbmzrxbwOzexjtFqkqgbpf43-58-9895Wcrwnzbcx functionCognitive Status [facility] at [facility]University [facility] Work Phone: Clinical Notes 08-23-2022 to 03-07-2025 Note Date & WusmJumePcftvafg10-07-0234 History of Present illness Narrative* Pura Lara, DO - 03/07/2025 3:30 PM EDT Images from the original note were not included. Subjective Jeannette Hurtado is a 59 y.o. female HPI [...] Anginal pain Anxiety Arthritis Arthritis Asthma (HCC) 2015 Asymptomatic menopausal state Back pain Breast [...] broken L heel COLONOSCOPY DILATION AND CURETTAGE 2016 DILATION AND CURETTAGE OF UTERUS 2017 EGD N/A 10/05/2024 normal per pt OTHER SURGICAL HISTORY 2006 sweat gland removed OTHER SURGICAL HISTORY H/O [...] Hypertension Sibling Breast cancer Mother's Sister wan nunez Breast cancer Father's Sister jean marie law [...] tablet 3 Eucalyptus Oil oil Homeopathic Products (Frankincense Uplifting) oil losartan (Cozaar) 25 MG tablet Take 25 mg by mouth Daily metFORMIN (Glucophage) 1000 MG tablet Take 1 tablet (1,000 mg) by mouth in the morning and 1 tablet(1,000 mg) in the evening. Take with meals. 180 tablet 1 Microlet Lancets [facility] [place] Multiple Vitamins-Minerals (Multi Complete) capsule nitroglycerin (Nitrostat) [...] 201 lb LMP (LMP Unknown) BMI 32.44 kg/m Physical Exam Constitutional: Appearance: Normal appearance. [...] incontinence - Urine dip documented in this encounterRanken Jordan Pediatric Specialty [id number] NoteHNO ID: [id number] Author: RAEGAN CACERES MD Service: ? Author Type: Physician Type: Progress Notes Filed: 03/05/2025 09:42 Note Text: Rheumatology Outpatient Clinic - Virtual Visit Date of Service: 03/05/2025 Patient: Jeannette Hurtado Medical Record: [id number] Primary Care Physician: Klaudia Gomez MD Last Rheumatology visit: [facility] at [facility] Referring Provider: Maite Merritt [address] [place] [address] [place] [address] Consultation requested by Maite Merritt PA-C for an opinion regarding fatigue. My final recommendations will be communicated back to the requesting physician by way of shared Medical record or letter to requesting physician via US mail. History of Present Illness Jeannette Hurtado is a 59 year old White female who presents on 03/05/2025 for a virtual visit for Fatigue. HISTORY OF PRESENT ILLNESS I have communicated my name and active licensure. The patient's identity and physical location were verified at the time of this visit. The patient has been informed of the risks and benefits of -- and alternatives to -- treatment through a remote evaluation and consents to proceed with the evaluation remotely. I have confirmed that the patient is in [place] today and have checked in to confirm her consent to be seen virtually. Patient presents with complaints of chronic fatigue. She states that the fatigue has been present for the better part of 3 years and to some degree has progressed. There have been periods of time with intervention that have lessened to fatigue but a persistent nonetheless. Initially it was thought to be due [...] some hair thinning (appears to be more in a male pattern baldness) but no active skin rash. She does have a dry cough mostly during the day at work. She tends to get short of breath. She has a experienced degree ofjoint pain and its most active in her [...] headache. She will have an occasional sharp shooting pain in the occipital region with her [...] diagnosis) (M25.50) Polyarthralgia Plan Orders this visit: [facility] on 03/05/25 LEISA BY IFA WITH REFLEX CCP ANTIBODY IGG C-REACTIVE PROTEIN RHEUMATOID FACTOR SEDIMENTATION RATE, LEOBARDO CONSULT TO RHEUM/IMMUN DISEASE After review of her history and review of systems from a rheumatologic perspective this looks most consistent with probable osteoarthritis and fatigue of undetermined origin although she has fragmented sleep. She does manifest (more content not included)...[facility]10-08-2025 NoteHNO ID: [id number] Author: MAITE MERRITT PA-C Service: ? Author Type: Physician Staff Command And Control Officer Type: Progress Notes Filed: 02/20/2025 14:05 Note Text: NAME: Veronica Hurtadolyn CLINIC NO.: [id number] DATE OF SERVICE: February 20, 2025 (Shaina) Some elements in this clinic note that are critical to medical decision making have been carefully reviewed and included from a prior clinic note dated: November 28, 2024 (Shaina) Referring Provider: Dr. Klaudia Gomez Additional Clinicians involved in Jeannette Hurtado's care: DIAGNOSIS: Anemia, fatigue ASSESSMENT: 59 year old woman with anemia and associated fatigue. She has obstructive sleep apnea but is compliant with CPAP. We advised her to have a cardiac workup done because the degree of anemia did not match the degree of fatigue. She ended up failing a stress test and now has two coronary stents. Cardiology just stopped her Plavix 08/2024. No iron needs at this time. She continues her folic acid daily and monthly B12 IM injections. Her WBC is mildly elevated at 13.16 -monitor Elevated transaminases-mild, recommend repeating in 2 weeks and if remain high, will need liver US, hep panel and GI referral She will return in 3 months with repeat labs. As for her chronic fatigue, I recommended seeing rheumatology as all other avenues seem to have been exhausted. Will refer to [facility] rheumatology HPI: CASE HISTORY: Reverse Chronological Order 08/29/2024 - BCR/ABL1 negative and MPN panel negative 03/27/24-04/10/24 - venofer 1000 mg total given 10/02/24 - B12 IM monthly started 02/21/23-03/07/23 - venofer 900mg total given 01/05/2023 - CBC 9.2 > 11.2 / 35.6 < 277 11/12/2022 - Colonoscopy is negative. Recommended colonoscopy 10 years. Updated Visit, February 20, 2025: Adalgisa returns for 3 month follow up. She is taking her folic acid daily and getting her B12 injection monthly. Labs from 02/14/25 showed folate >20, B12 of 820, ferritin 310, TIBC 342 and transferrin saturation of 14.6%. Hemoglobin was normal at 14.2 and MCV was 94. WBC was slightly elevated at 13.16. Recently switched from lipitor to crestor but that was after the lab draw. Jardiance was new before the last lab draw. She started it about 3 months ago. No tylenol use, very little ETOH and none recently. Updated Visit, November 28, 2024: Adalgisa returns for 3 month follow up and remains on folic acid daily and B12 IM monthly. Most recent labs on 11/21/24 revealed normal WBC of 10.99, normal hgb 13.5 and MCV 96.0 and platelets of 252,000. In August her WBC were elevated and work up was completed. Her MPN and BCR/ABL1 were both negative. She still remains tired. She sleeps well. She is using her CPAP regularly. Updated Visit, August 29, 2024: Adalgisa returns for follow up. Remains on folic acid daily and B12 IM monthly. Still has fatigue. No fever, chills, nausea, vomiting, weight loss, lymph node enlargement or other symptoms. Plavix stopped last week by cardiology. WBC and neutrophils remain elevated. Iron studies remain stable. Updated Visit, June 06, 2024: Patient here for follow up. Received venofer 200 x 5 doses in March 2024. Her energy level has been better. Here for follow up. Remains on folic acid and gets her B12 injections monthly. She has fallen a few times since her last visit. She lost her balance. No dizziness. No loss of consciousness. No headaches. Some blurred vision at times. She is on a new medicine, solifenacin for urinary incontinence for 2 months and it is helping. Updated Visit, March 14, 2024: Patient is [...] replacement / balancing that is offered [facility] [employer]. Updated Visit, July 11, 2023: Jeannette A Hurtado returns for scheduled follow-up. Since her last visit there has been no significant medical changes. She offers no new complaints today. No new issues, problems or concerns. (more content not included)...[facility]09-29-2025 History of Present illness Narrative* Camilo Chang MD - 02/11/2025 10:10 AM EDT Jeannette Hurtado is a 59 y.o. female No ref. provider found presents with chief complaint of Diabetes HPI: IM : 01/2025 Follow-up visit 02/11/2025 she is currently on metformin 1000 twice a day, Jardiance 25 mg once a day, A1c 5.8, blood sugar 120, thyroid function tests within normal limits, total cholesterol 228, triglycerides 222, HDL 40, LDL 146, albumin over creatinine 5, C-peptide 5, vitamin-D 35, she used to be on Lipitor but stopped it due to stomach ache 10/2024 History of Present Illness The patient is a 58-year-old female who presents as a new patient referred by Dr. Klaudia Gomez for diabetes management. She has been living with diabetes for approximately 6 years, managed solely with metformin 1000 mg twice daily. She reports no history of stroke, numbness, tingling in the extremities, diabetic-related amputations, or ocular complications due to diabetes. Her most recent ophthalmological examination was conducted in 06/2024, during which her pupils were dilated for a comprehensive internal eye examination. She has observed a trend of increasing blood glucose levels, initially controlled within the range of 120 to 140, but recently escalating to 160 and 170. In response to this, Dr. Denice Chávez augmented her metformin dosage. She has a history of stent placement. She reports no history of pancreatitis, substance use disorder, or excessive drinking. Her insurance is [facility]. SOCIAL HISTORY She does not drink alcohol. Results Labs: A1c: 7.2% Blood sugar: 294 mg/dL TSH: Normal (February 2025) SUBJECTIVE: MEDICATIONS: Current Outpatient Medications Medication Instructions albuterol HFA 90 mcg/act inhaler 2 puffs, Every 6 hours PRN ascorbic acid (Vitamin C) 500 mg/mL oral liquid Take by mouth Aspirin Low Dose 81 mg, Once B Complex Vitamins (vitamin B complex) tablet celecoxib (CELEBREX) 200 mg, Daily Contour Next Test test strip empagliflozin (JARDIANCE) 25 mg, Oral, Daily Eucalyptus Oil oil Homeopathic Products ([facility]) oil losartan (COZAAR) 25 mg, Daily metFORMIN (GLUCOPHAGE) 1,000 mg, Oral, 2 times daily with meals Microlet Lancets misc Multiple Vitamins-Minerals (Multi Complete) capsule nitroglycerin (NITROSTAT) 0.4 mg, Daily PRN rosuvastatin (CRESTOR) 10 mg, Oral, Daily sertraline (ZOLOFT) 25 mg, Daily RT solifenacin (VESICARE) 10 mg, Oral, Daily ALLERGIES: Allergies Allergen Reactions Latex Hives, Rash and Unknown Prochlorperazine Anxiety, Hives, Palpitations, Rash and Unknown Past Medical History: Diagnosis Date Adult hypothyroidism [...] History: Procedure Laterality Date ANKLE SURGERY Left 2012 ankle tendon repair CARDIAC CATHETERIZATION 06/2023 2 stents placed CAST / SPLINT / FX Left casted- broken L heel COLONOSCOPY DILATION AND CURETTAGE 2016 DILATION AND CURETTAGE OF UTERUS 2017 EGD N/A 10/05/2024 normal per pt OTHER SURGICAL HISTORY 2006 sweat gland removed OTHER SURGICAL HISTORY H/O heart artery stent OTHER SURGICAL HISTORY percutaneou transluminal coronary angioplasty VAGINAL DELIVERY REVIEW OF SYMPTOMS: 14 POINT OF SYSTEM REVIEWED AND NEGATIVE OBJECTIVE: Constitutional: Afebrile @ home; no weakness or night sweats SKIN: No change in skin color; no itching, rash or lesions; no hair loss; HEENT: No HAs or injury; no dizziness; No difficulty with vision; no eye pain, discharge or lesions; no hearing loss or difficulty; no nasal discharge, NECK: No pain, limitation of motion, lumps or swollen glands RESP: No cough, wheezing or difficulty breathing. No CP with breathing; CARDIO: No CP , SOB or fatigue, No edema, palpitations or dyspnea with exertion GI: No N/V/D or abd. pain; good appetite with no recent change. No heart burn, liver or gallbladderdisease; no rectal bleeding or pain : No urinary pain , frequency or odor. MUSCULOSKELETAL: No muscle pain or cramps; no extremity weakness.No joint pain, stiffness, swellingor limitation of movement NEUROLOGY: No H/O seizures, stroke or fainting. No weakness, tremors. Hematology: No bleeding problems or excessive bruising ENDOCRINE: No increase in hunger, thirst or urination; admits compliance to medical management plan Feet: numbness tingling no , ulcers or skin break no Lab Results Component Value Date HGBA1C 5.8 02/11/2025 HGBA1C 7.2 10/15/2024 Lab Results Component Value Date GLU 121 02/11/2025 GLU 110 (H) 02/06/2025 GLU 178 (H) 11/21/2024 04/23/2024 2:37 PM 05/30/2024 7:47 PM 06/26/2024 5:33 PM 07/23/2024 3:23 PM 10/15/2024 10:23 AM 10/22/2024 3:36 PM 02/11/2025 10:11 AM Vitals BMI 31.01 kg/m2 31.01 kg/m2 31.32 kg/m2 33.73 kg/m2 33.73 kg/m2 32.12 kg/m2 BSA (m2) 2.06 m2 2.06 m2 2.07 m2 2.1 m2 2.1 m2 2.05 m2 Systolic 140 132 124 158 150 152 124 Diastolic 78 74 80 82 80 72 70 Heart Rate 62 83 74 72 SpO2 98 % 97 % 97 % 97 % Temp 97.2 F 98.4 F Resp 16 16 Height (in) 5' 6 5' 6 Weight (lb) 198 198 200 209 209 199 Visit Report Report Report Report Report Report Report Report Physical Exam Constitutional: Appearance: Normal appearance. She is normal weight. HENT: Head: Normocephalic and atraumatic. Right Ear: External ear normal. Nose: Nose normal. Mouth/Throat: Pharynx: Oropharynx is clear. Eyes: Extraocular Movements: Extraocular movements intact. Pupils: Pupils are equal, round, and reactive to light. Cardiovascular: Rate and Rhythm: Normal rate and regular rhythm. Pulmonary: Effort: Pulmonary effort is normal. Abdominal: General: Abdomen is flat. Palpations: Abdomen is soft. Musculoskeletal: General: Normal range of motion. Skin: General: Skin is warm. Neurological: General: No focal deficit present. Mental Status: She is alert. Psychiatric: Mood and Affect: Mood normal. Behavior: Behavior normal. ASSESSMENT AND PLAN: Assessment/Plan Diagnoses and all orders for this visit: Type 2 diabetes mellitus with hyperglycemia, without long-term current use of insulin (HCC) - POCT glucose manually resulted - POCT glycosylated hemoglobin (Hb A1C) docked device - empagliflozin (Jardiance) 25 MG; Take 1 tablet (25 mg) by mouth Daily - metFORMIN (Glucophage) 1000 MG tablet; Take 1 tablet (1,000 mg) by mouth in the morning and 1 tablet (1,000 mg) in the evening. Take with meals. - Lipid panel; Future We will continue with metformin 1000 twice a day, Jardiance 25 mg once a day Vitamin D deficiency Hyperlipemia, mixed - rosuvastatin (Crestor) 10 MG tablet; Take 1 tablet (10 mg) by mouth Daily She is off Lipitor since long time, I will start her Crestor 10 mg once a day, LDL 146, we will check lab before next visit Primary hypertension Encounter for dietary consultation Class 1 obesity due to excess calories with serious comorbidity and body mass index (BMI) of 32.0 to 32.9 in adult Diet and exercise reviewed with the patient Follow up in about 4 months (around 06/13/2025). documented in this encounterRanken Jordan Pediatric Specialty [id number] NoteHNO ID: [id number] Author: KATINA HOWE MA Service: ? Author Type: Fbi Profiler Type: Progress Notes Filed: 01/17/2025 14:08 Note Text: Patient Identification confirmed: yes. Injection given and documented on JUL per provider order. [facility] Telephone encounter Note* Telephone Encounter - Ruben Wiggins APRN.CNP - 12/14/2024 3:13 PM EDT The following approved medication requests have been transmitted electronically. Requested Prescriptions Signed Prescriptions Disp Refills folic acid 1 mg tablet 90 tablet 3 Sig: TAKE 1 TABLET DAILY Authorizing Provider: RUBEN WIGGINS APRN.CNP [facility]08-01-2025 Miscellaneous Notes* Telephone Encounter - Ruben Wiggins APRN.CNP - 12/14/2024 3:13 PM EDT The following approved medication requests have been transmitted electronically. Requested Prescriptions Signed Prescriptions Disp Refills folic acid 1 mg tablet 90 tablet 3 Sig: TAKE 1 TABLET DAILY Authorizing Provider: RUBEN WIGGINS APRN.CNP documented in this encounterBarney Children'S [facility] Center07-16-2025 NoteHNO ID: [id number] Author: MARE HUSAIN LSW Service: ? Author Type: Oil Expeller Operator Type: Progress Notes Filed: 11/28/2024 14:46 Note Text: Unable To Reach Patient Patient's name appears on the PRO [place] report for a NCCN score of 9. SW was unable to reach patient for follow up. [facility]07-16-2025 History of Present illness Narrative* Mare Husain LSW - 11/28/2024 2:43 PM EDT Unable To Reach Patient Patient's name appears on the PRO [place] report for a NCCN score of 9. SW was unable to reach patient for follow up. [facility]-S documented in this encounterBarney Children'S Medical Center07-16-2025 History of Present illness Narrative* Maite Merritt PA-C - 11/28/2024 2:00 PM EDT Images from the original note were not included. NAME: Jeannette Hurtado CLINIC NO.: [id number] DATE OF SERVICE: November 28, 2024 (Shaina) Some elements in this clinic note that are critical to medical decision making have been carefully reviewed and included from a prior clinic note dated: August 29, 2024 (Shaina) Referring Provider: Dr. Klaudia Gomez Additional Clinicians involved in Jeannette Hurtado's care: DIAGNOSIS: Anemia, fatigue ASSESSMENT: 59 year old woman with anemia and associated fatigue. She has obstructive sleep apnea but is compliant with CPAP. We advised her to have a cardiac workup done because the degree of anemiadid not match the degree of fatigue. She ended up failing a stress test and now has two coronary stents. Cardiology just stopped her Plavix 08/2024. Her labs from 08/22/2024 showed improvement in her ferritin after receiving 1000 mg total of venofer in March 2024. She continues her folic acid daily and monthly B12 IM injections. Her neutrophils and WBC have normalized. She will return in 3 months with repeat labs. As for her chronic fatigue, I recommended seeing rheumatology as all other avenues seem to have been exhausted. HPI: CASE HISTORY: Reverse Chronological Order 08/29/2024 - BCR/ABL1 negative and MPN panel negative 03/27/24-04/10/24 - venofer 1000 mg total given 10/02/24 - B12 IM monthly started 02/21/23-03/07/23 - venofer 900mg total given 01/05/2023 - CBC 9.2 > 11.2 / 35.6 < 277 11/12/2022 - Colonoscopy is negative. Recommended colonoscopy 10 years. Updated Visit, November 28, 2024: Adalgisa returns for 3 month follow up and remains on folic acid daily and B12 IM monthly. Most recent labs on 11/21/24 revealed normal WBC of 10.99, normal hgb 13.5 and MCV 96.0 and platelets of 252,000. In August her WBC were elevated and work up was completed. Her MPN and BCR/ABL1 were both negative. She still remains tired. She sleeps well. She is using her CPAP regularly. Updated Visit, August 29, 2024: Adalgisa returns for follow up. Remains on folic acid daily and B12 IM monthly. Still has fatigue. Nofever, chills, nausea, vomiting, weight loss, lymph node enlargement or other symptoms. Plavix stopped last week by cardiology. WBC and neutrophils remain elevated. Iron studies remain stable. Updated Visit, June 06, 2024: Patient here for follow up. Received venofer 200 x 5 doses in March 2024. Her energy level has been better. Here for follow up. Remains on folic acid and gets her B12 injections monthly. She has fallen a few times since her last visit. She lost her balance. No dizziness. No loss of consciousness. No headaches. Some blurred vision at times. She is on a new medicine, solifenacin for urinary incontinence for 2 months and it is helping. Updated Visit, March 14, 2024: Patient is [...] 7 years. Patient has had frequent headaches dueto stress at work, gotten worse the past [...] replacement / balancing that is offered by [employer] [facility]. Updated Visit, July 11, 2023: Jeannette Hurtado [...] PERFORMANCE STATUS: 1 PHYSICAL EXAMINATION: Vitals: BP 137/83 Pulse 75 Temp (Src) 97.8 (Temporal) Resp 16 Wt 201 lb 15.1 oz (91.6kg) SpO2 99% Body surface area is 2.07 meters squared. General: Alert and oriented, no distress, pleasant and cooperative. Heart: Regular, normal S1 and S2, no murmurs, rubs, or gallops Lungs: Clear to auscultation bilaterally Abdomen: Benign Extremities: Feet/ankles without edema, posterior tibial pulses full and symmetrical ALLERGIES: ALLERGIES Allergen Reactions Compazine [Prochlor* Latex Unknown MEDICATIONS: solifenacin 10 mg tablet Take 1 tablet by mouth once daily. folic acid 1 mg tablet Take 1 [...] breath. LABORATORY VALUES: WBC (k/uL) Date Value 11/21/2024 10.99 RBC (m/uL) Date Value 11/21/2024 4.22 Hemoglobin (g/dL) Date Value 11/21/2024 13.5 Hematocrit (%) Date Value 11/21/2024 40.5 MCV (fL) Date Value 11/21/2024 96.0 MCH (pg) Date Value 11/21/2024 32.0 MCHC (g/dL) Date Value 11/21/2024 33.3 RDW-CV (%) Date Value 11/21/2024 13.0 Platelet Count (k/uL) Date Value 11/21/2024 252 MPV (fL) Date Value 11/21/2024 9.5 Glucose (mg/dL) Date Value 11/21/2024 178 (H) BUN (mg/dL) Date Value 11/21/2024 21 Creatinine (mg/dL) Date Value 11/21/2024 0.93 Sodium (mmol/L) Date Value 11/21/2024 135 (L) Potassium (mmol/L) Date Value 11/21/2024 4.4 Chloride (mmol/L) Date Value 11/21/2024 96 (L) CO2 (mmol/L) Date Value 11/21/2024 28 Protein, Total (g/dL) Date Value 11/21/2024 7.5 Albumin (g/dL) Date Value 11/21/2024 4.5 Calcium, Total (mg/dL) Date Value 11/21/2024 10.0 Alkaline Phosphatase (U/L) Date Value 11/21/2024 109 Bilirubin, Total (mg/dL) Date Value 11/21/2024 0.3 AST (U/L) Date Value 11/21/2024 40 (H) ALT (U/L) Date Value 11/21/2024 32 DIAGNOSIS: (D50.8) Iron deficiency anemia secondary to inadequate dietary iron intake (primary encounter diagnosis) Plan: COMPREHENSIVE METABOLIC PANEL, IRON AND TIBC, COMPLETE BLOOD COUNT AND DIFFERENTIAL, FERRITIN, FOLATE, SERUM, VITAMIN B12 (E53.8) Folate deficiency Plan: COMPREHENSIVE METABOLIC PANEL, IRON AND TIBC, COMPLETE BLOOD COUNT AND DIFFERENTIAL, FERRITIN, FOLATE, SERUM, VITAMIN B12 (D53.1) Megaloblastic anemia due to vitamin B12 deficiency Plan: COMPREHENSIVE METABOLIC PANEL, IRON AND TIBC, COMPLETE BLOOD COUNT AND DIFFERENTIAL, FERRITIN, FOLATE, SERUM, VITAMIN B12 PAST MEDICAL HISTORY Diagnosis Date Anemia Anxiety Elevated glucose Hypercholesteremia Hypothyroidism Iron deficiency anemia secondary to inadequate dietary iron intake 02/07/2023 Migraines PAST SURGICAL HISTORY Procedure Laterality Date COLONOSCOPY 10/2022 PAST SURGICAL HISTORY OF Bilateral sweat glands removed PAST SURGICAL HISTORY OF Left Foot tendon x2 PAST SURGICAL HISTORY OF Cardiac Stent x2 Social History Tobacco Use Smoking status: [...] which included preparing to see the patient, [id number] patient care, completing clinical documentation, performing a medically appropriate examination, counseling and educating the patient/family/caregiver, ordering medications, tests, or p rocedures, independently interpreting results (not separately reported), communicating results to the patient/family/caregiver, and care coordination (not separately reported). Maite Merritt PA-C Hematology and Oncology Services Provided at: [place], [place] CC: Klaudia Gomez MD [address] [place] [phone] documented in this encounterBarney [facility]07-16-2025 NoteHNO ID: [id number] Author: MAITE MERRITT PA-C Service: ? Author Type: Physician Staff Command And Control Officer Type: Progress Notes Filed: 11/28/2024 14:24 Note Text: NAME: HurtadoJeannette CLINIC NO.: [id number] DATE OF SERVICE: November 28, 2024 (Shaina) Some elements in this clinic note that are critical to medical decision making have been carefully reviewed and included from a prior clinic note dated: August 29, 2024 (Shaina) Referring Provider: Dr. Klaudia Gomez Additional Clinicians involved in Jeannette Hurtado's care: DIAGNOSIS: Anemia, fatigue ASSESSMENT: 59 year old woman with anemia and associated fatigue. She has obstructive sleep apnea but is compliant with CPAP. We advised her to have a cardiac workup done because the degree of anemia did not match the degree of fatigue. She ended up failing a stress test and now has two coronary stents. Cardiology just stopped her Plavix 08/2024. Her labs from 08/22/2024 showed improvement in her ferritin after receiving 1000 mg total of venofer in March 2024. She continues her folic acid daily and monthly B12 IM injections. Her neutrophils and WBC have normalized. She will return in 3 months with repeat labs. As for her chronic fatigue, I recommended seeing rheumatology as all other avenues seem to have been exhausted. HPI: CASE HISTORY: Reverse Chronological Order 08/29/2024 - BCR/ABL1 negative and MPN panel negative 03/27/24-04/10/24 - venofer 1000 mg total given 10/02/24 - B12 IM monthly started 02/21/23-03/07/23 - venofer 900mg total given 01/05/2023 - CBC 9.2 > 11.2 / 35.6 < 277 11/12/2022 - Colonoscopy is negative. Recommended colonoscopy 10 years. Updated Visit, November 28, 2024: Adalgisa returns for 3 month follow up and remains on folic acid daily and B12 IM monthly. Most recent labs on 11/21/24 revealed normal WBC of 10.99, normal hgb 13.5 and MCV 96.0 and platelets of 252,000. In August her WBC were elevated and work up was completed. Her MPN and BCR/ABL1 were both negative. She still remains tired. She sleeps well. She is using her CPAP regularly. Updated Visit, August 29, 2024: Adalgisa returns for follow up. Remains on folic acid daily and B12 IM monthly. Still has fatigue. No fever, chills, nausea, vomiting, weight loss, lymph node enlargement or other symptoms. Plavix stopped last week by cardiology. WBC and neutrophils remain elevated. Iron studies remain stable. Updated Visit, June 06, 2024: Patient here for follow up. Received venofer 200 x 5 doses in March 2024. Her energy level has been better. Here for follow up. Remains on folic acid and gets her B12 injections monthly. She has fallen a few times since her last visit. She lost her balance. No dizziness. No loss of consciousness. No headaches. Some blurred vision at times. She is on a new medicine, solifenacin for urinary incontinence for 2 months and it is helping. Updated Visit, March 14, 2024: Patient is [...] replacement / [facility] [employer]. Updated Visit, July 11, 2023: Jeannette Hurtado [...] infusions well. She states that her fatigue i (more content not included)...[facility]07-09-2025 NoteHNO ID: [id number] Author: DANGELO UMANZOR MA Service: ? Author Type: Fbi Profiler Type: Progress Notes Filed: 11/21/2024 14:36 Note Text: Patient Identification confirmed: yes. Injection given and documented on MAR per provider order. Dangelo Umanzor [facility]07-09-2025 History of Present illness Narrative* Dangelo Umanzor MA - 11/21/2024 2:36 PM EDT Patient Identification confirmed: yes. Injection given and documented on MAR per provider order. Dangelo Umanzor MA documented in this encounterBarney Children'[facility]06-11-2025 NoteHNO ID: [id number] Author: KATINA HOWE MA Service: ? Author Type: Fbi Profiler Type: Progress Notes Filed: 10/24/2024 14:19 Note Text: Patient Identification confirmed: yes. Injection given and documented on MAR per provider order. Katina Howe [facility]06-09-2025 History of Present illness Narrative* Pura Lara DO - 10/22/2024 3:30 PM EDT Images from the original note were not included. Subjective Jeannette Hurtado is a 58 y.o. female HPI Chief Complaint Patient presents with pessary maintenence Pt here for 3 mo pessary follow up. Urine dip normal. Pt states she does still have leakage, however much improved compared to prior to pessary use. Pt states she changes her pad once daily and does not go through more than that. Pt is happy with the pessary overall. Past Medical History: Diagnosis Date Adult hypothyroidism (CMS/HCC) Adult hypothyroidism (CMS/HCC) Anginal pain (CMS/HCC) Anxiety Arthritis Arthritis Asthma 2014 Asymptomatic menopausal state Back pain Breast [...] broken L heel COLONOSCOPY DILATION AND CURETTAGE 2016 DILATION AND CURETTAGE OF UTERUS 2017 EGD N/A 10/05/2024 normal per pt OTHER SURGICAL HISTORY 2006 sweat gland removed OTHER SURGICAL HISTORY H/O heart artery stent OTHER SURGICAL HISTORY percutaneou transluminal coronary angioplasty VAGINAL DELIVERY Family History Problem Relation Name Age of Onset Hypertension Mother kelvin paul gonzalest Glaucoma Mother kelvin paul gonzalest Macular degeneration Mother kelivn paul leatha Osteoarthritis Mother kelvin paul jordanrst Asthma Mother kelvin paul gonzalest Hypertension Father kalpana zhang Heart disease Father kalpana zhang Other (CABG) Father kalpana zhang Coronary artery disease Father kalpana zhang Other (History of heart arery stent) Father kalpana zhang Pancreatic cancer Father kalpana zhang Cancer Father kalpana zhang Heart failure Father kalpana zhang Glaucoma Sister Heart disease Brother Hypertension Sibling Breast cancer Mother's Sister wan nunez Breast cancer Father's Sister jean marie law [...] (one) time each day at the same time B Complex Vitamins (vitamin B complex) tablet celecoxib (CeleBREX) 200 MG capsule Take 200 mg by mouth Daily Contour Next Test test strip empagliflozin (Jardiance) 25 MG Take 1 tablet (25 mg) by mouth Daily 90 tablet 1 Eucalyptus Oil oil Homeopathic Products ([facility]) oil losartan (Cozaar) 25 MG tablet [...] (10 mg) by mouth Daily 90 tablet 1 [DISCONTINUED] methylPREDNISolone (Medrol Dospak) 4 MG tablets Follow schedule on package instructions 21 tablet 0 [DISCONTINUED] Plavix 75 MG tablet Take 75 mg by mouth in the morning. No current facility-administered medications on file prior to visit. Review of Systems Constitutional: Negative for chills and fever. Respiratory: Negative for shortness of breath. Cardiovascular: Negative for chest pain. Gastrointestinal: Negative for nausea and vomiting. Genitourinary: Negative for dysuria, pelvic pain, vaginal bleeding, vaginal discharge and vaginal pain. Neurological: Negative for dizziness and headaches. Objective BP 152/72 Wt 209 lb LMP (LMP Unknown) BMI 33.73 kg/m Physical Exam Constitutional: Appearance: Normal appearance. Genitourinary: No lesions in the vagina. Genitourinary Comments: Pessary in appropriate position. Pessary removed, cleansed, and re-insertedwithout difficulty. Pessary remained in place with valsalva Right Labia: No lesions. Left Labia: No lesions. Vaginal granulation tissue (in posterior fornix with scant bleeding) present. No vaginal discharge. Anterior vaginal [...] discussed. - Urine dip 2. Cystocele, midline 3. Mixed urge and stress incontinence - POCT urinalysis dipstick manually resulted 4. Acute vaginitis Discussed findings. Metronidazole Rx sent - metroNIDAZOLE (Flagyl) 500 MG tablet; Take 1 tablet (500 mg) by mouth in the morning and 1 tablet(500 mg) before bedtime. Do all this for 7 days. Dispense: 14 tablet; Refill: 0 5. Vaginal discharge - metroNIDAZOLE (Flagyl) 500 MG tablet; Take 1 tablet (500 mg) by mouth in the morning and 1 tablet(500 mg) before bedtime. Do all this for 7 days. Dispense: 14 tablet; Refill: 0 6. Vaginal inflammation from pessary, initial encounter ([facility]) - metroNIDAZOLE (Flagyl) 500 MG tablet; Take 1 tablet (500 mg) by mouth in the morning and 1 tablet(500 mg) before bedtime. Do all this for 7 days. Dispense: 14 tablet; Refill: 0 documented in this encounterRanken Jordan Pediatric Specialty [id number] History of Present illness Narrative* Camilo Chang MD - 10/15/2024 10:10 AM EDT Jeannette Hurtado is a 58 y.o. female No ref. provider found presents with chief complaint of Thyroid Problem and Diabetes (NEW TSH IN FEBRUARY NO REFERRAL/) HPI: History of Present Illness The patient is a 58-year-old female who presents as a new patient referred by Dr. Klaudia Gomez for diabetes management. She has been living with diabetes for approximately 6 years, managed solely with metformin 1000 mg twice daily. She reports no history of stroke, numbness, tingling in the extremities, diabetic-related amputations, or ocular complications due to diabetes. Her most recent ophthalmological examination was conducted in 06/2024, during which her pupils were dilated for a comprehensive internal eye examination. She has observed a trend of increasing blood glucose levels, initially controlled within the range of 120 to 140, but recently escalating to 160 and 170. In response to this, Dr. Denice Chávez augmented her metformin dosage. She has a history of stent placement. She reports no history of pancreatitis, substance use disorder, or excessive drinking. Her insurance is [facility]. SOCIAL HISTORY She does not drink alcohol. Results Labs: A1c: 7.2% Blood sugar: 294 mg/dL TSH: Normal (February 2025) SUBJECTIVE: MEDICATIONS: Current Outpatient Medications Medication Instructions albuterol HFA 90 mcg/act inhaler 2 puffs, Every 6 hours PRN ascorbic acid (Vitamin C) 500 mg/mL oral liquid Take by mouth Aspirin Low Dose 81 mg, Once atorvastatin (Lipitor) 20 MG tablet Every 24 hours B Complex Vitamins (vitamin B complex) tablet celecoxib (CELEBREX) 200 mg, Daily Contour Next Test test strip empagliflozin (JARDIANCE) 25 mg, Oral, Daily Eucalyptus Oil oil Homeopathic Products ([facility]) oil losartan (COZAAR) 25 mg, Daily metFORMIN (GLUCOPHAGE) 1,000 mg, 2 times daily with meals methylPREDNISolone (Medrol Dospak) 4 MG tablets Follow schedule on package instructions Microlet Lancets misc Multiple Vitamins-Minerals (Multi Complete) capsule nitroglycerin (NITROSTAT) 0.4 mg, Daily PRN Plavix 75 mg, Daily RT sertraline (ZOLOFT) 25 mg, Daily RT solifenacin (VESICARE) 10 mg, Oral, Daily ALLERGIES: Allergies Allergen Reactions Latex Hives, Rash and Unknown Prochlorperazine Anxiety, Hives, Palpitations, Rash and Unknown Past Medical History: Diagnosis Date Adult hypothyroidism [...] History: Procedure Laterality Date ANKLE SURGERY Left 2012 ankle tendon repair CARDIAC CATHETERIZATION 06/2023 2 stents placed CAST / SPLINT / FX Left casted- broken L heel COLONOSCOPY DILATION AND CURETTAGE 2016 DILATION AND CURETTAGE OF UTERUS 2017 OTHER SURGICAL HISTORY 2007 sweat gland removed OTHER SURGICAL HISTORY H/O heart artery stent OTHER SURGICAL HISTORY percutaneou transluminal coronary angioplasty VAGINAL DELIVERY REVIEW OF SYMPTOMS: 14 POINT OF SYSTEM REVIEWED AND NEGATIVE OBJECTIVE: Constitutional: Afebrile @ home; no weakness or night sweats SKIN: No change in skin color; no itching, rash or lesions; no hair loss; HEENT: No HAs or injury; no dizziness; No difficulty with vision; no eye pain, discharge or lesions; no hearing loss or difficulty; no nasal discharge, NECK: No pain, limitation of motion, lumps or swollen glands RESP: No cough, wheezing or difficulty breathing. No CP with breathing; CARDIO: No CP , SOB or fatigue, No edema, palpitations or dyspnea with exertion GI: No N/V/D or abd. pain; good appetite with no recent change. No heart burn, liver or gallbladderdisease; no rectal bleeding or pain : No urinary pain , frequency or odor. MUSCULOSKELETAL: No muscle pain or cramps; no extremity weakness.No joint pain, stiffness, swellingor limitation of movement NEUROLOGY: No H/O seizures, stroke or fainting. No weakness, tremors. Hematology: No bleeding problems or excessive bruising ENDOCRINE: No increase in hunger, thirst or urination; admits compliance to medical management plan Feet: numbness tingling no , ulcers or skin break no Lab Results Component Value Date HGBA1C 7.2 10/15/2024 Lab Results Component Value Date GLU 294 10/15/2024 GLU 149 (H) 08/22/2024 GLU 132 (H) 06/06/2024 Visit Vitals BP 150/80 Pulse 74 Resp 16 Ht 5' 6 Wt 209 lb LMP (LMP Unknown) SpO2 97% BMI 33.73 kg/m OB Status Postmenopausal Smoking Status Never BSA 2.1 m Physical Exam Constitutional: Appearance: Normal appearance. She is normal weight. HENT: Head: Normocephalic and atraumatic. Right Ear: External ear normal. Nose: Nose normal. Mouth/Throat: Pharynx: Oropharynx is clear. Eyes: Extraocular Movements: Extraocular movements intact. Pupils: Pupils are equal, round, and reactive to light. Cardiovascular: Rate and Rhythm: Normal rate and regular rhythm. Pulmonary: Effort: Pulmonary effort is normal. Abdominal: General: Abdomen is flat. Palpations: Abdomen is soft. Musculoskeletal: General: Normal range of motion. Skin: General: Skin is warm. Neurological: General: No focal deficit present. Mental Status: She is alert. Psychiatric: Mood and Affect: Mood normal. Behavior: Behavior normal. ASSESSMENT AND PLAN: Assessment/Plan Diagnoses and all orders for this visit: Type 2 diabetes mellitus with hyperglycemia, without long-term current use of insulin ([facility]) - POCT glucose manually resulted - POCT glycosylated hemoglobin (Hb A1C) docked device - empagliflozin (Jardiance) 25 MG; Take 1 tablet (25 mg) by mouth Daily - C-peptide; Future - Vitamin D 25 hydroxy Total; Future - Microalbumin / creatinine urine ratio; Future - Lipid panel; Future - Renal function panel; Future - Thyroglobulin Antibody; Future - Thyroid peroxidase antibody; Future - T3, free; Future - T4, free; Future - TSH; Future Vitamin D deficiency Hyperlipemia, mixed ([facility]) Primary hypertension ([facility]) Class 1 obesity due to excess calories with serious comorbidity and body mass index (BMI) of 33.0 to 33.9 in adult Encounter for dietary consultation Diet and exercise reviewed with the patient Assessment & Plan 1. Diabetes mellitus: inadequately controlled - A1c level is currently at 7.2, with a blood glucose reading of 294. - Current regimen of metformin 1000 mg twice a day is insufficient. - Discussed potential side effects of Jardiance, which may occur initially but should subside over time. - Jardiance once a day will be initiated to protect her heart given her history of heart disease. Samples will be provided. Follow up in about 3 months (around 01/15/2025). documented in this encounterRanken Jordan Pediatric Specialty [id number] History [place] [address] Gastroenterology H&P Signed Patient: Jeannette Hurtado MR#: [id number] : 1965 Acct:[id number] Age/Sex: 58 / F Adm Date: 5 Loc: Room: Type: [facility] Attending Dr: Fabby Teran MD Copies to: MD Klaudia Pizarro MD~ Date of Service: 10/05/2024 HISTORY & PHYSICAL: Patient's history with special attention to the cardiovascular, pulmonary systems and the current problem was reviewed with the patient immediately prior to the procedure. Present medications and doses reviewed in the EMR. Allergies and pertinent laboratory tests were also re viewedat this time in the EMR. The physical examination, as below, was then performed. Indication, assessment and HPI: 58-year-old female here for EGD for evaluation of dysphagia Family history of GI malignancy? No PHYSICAL EXAMINATION General appearance: NAD Skin: No jaundice Head: NC/AT Eyes: Anicteric Neck: Supple Lungs: Normal respiratory effort, no use of accessory muscles Abdomen: nondistended Neuro: Ox3. REVIEW OF SYSTEMS Constitutional: Denies malaise, fevers Cardiovascular: Denies chest pain, palpitations Respiratory: Denies shortness of breath, wheezing Gastrointestinal: As per HPI Genitourinary: Denies dysuria, polyuria Musculoskeletal: Denies joint swelling, joint stiffness Neurological: Denies confusion, numbness, tingling Endocrine: Denies fatigue Written informed consent obtained from the patient. Risks (including but not limited to perforation, infection, bloating, bleeding, need for emergent surgeryand loss of life), benefits and alternatives explained and questions answered. The patient verbalized understanding. Based on history patient is an appropriate candidate for the procedure. Fabby Teran M.D. Documented By: Fabby Teran MD 10/05/24 0839 Signed By: 10/05/[address] [facility]05-23-2025 [facility] [address] [id number] EGD Procedure Note Signed Patient: Jeannette Hurtado MR#: [id number] : 1965 Acct:[id number] Age/Sex: 58 / F Adm Date: Loc: Room: Type: [facility] Attending Dr: Fabby Teran MD Copies to: MD Klaudia Pizarro MD~ Esophagogastroduodenoscopy Date/Provider Date: 10/05/2024 Fabby Teran MD Procedure Findings: Procedure: EGD with biopsy Indication: 58-year-old female here for EGD for evaluation of dysphagia Pre-operative diagnosis: Dysphagia Post-operative diagnosis: Gastritis, duodenitis, 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 Sedation: propofol per anesthesia dept O2 oximetry, hemodynamic monitoring was performed pre, during, and post procedure. Patient was identified, H&P completed, patient was given full explanation of the procedure as well as associatedrisks and written consent wasobtained prior to procedure. Patient expressed complete understanding of the procedure as well as alternatives to the procedure and to anesthesia and agreed to proceed with the procedure as indicated. Patient was immediately reassessed prior to IV sedation. Following IV sedation, patient was placed in the left lateral decubitus position. Bite block was inserted. Endoscope was passed through the mouth, into the esophagus. Endoscope was advanced into the stomach through the pyloricchannel and into the 2nd portion of duodenum by direct visualization. Endoscopewas withdrawn into the stomach and retroflexion was performed. The endoscope was straightened,the stomach was decompressed. Endoscope was withdrawn into the esophagus then completely removed with the findings as below. Findings: DUODENUM: Erythematous mucosa noted in the bulb otherwise decending portion appeared normal. STOMACH: Erythematous mucosa and gastric erosions noted in the antrum otherwise fundus and cardia, including retroflexed views appear normal. ESOPHAGUS: A 1 cm tongues of salmon-colored mucosa noted between 42 cm and 43 cmfrom the incisors, biopsied using biopsy forceps to assess for Pena's. Otherwise esophageal mucosa appeared normal. Biopsies were done from the distalesophagus and proximal esophagus to assess for eosinophilic esophagitis. Biopsy taken: Yes Complications: None EBL: Minimal Recommendations: -Increase Nexium to 40 mg twice daily -Follow up pathology Following a period of recovery, patient was seen and given full explanation of the procedure. Patient tolerated the procedure well and will be discharged in satisfactory, stable condition. Fabby Teran M.D. Documented By: Fabby Teran MD 10/05/24 0839 Signed By: 10/05/[address] [facility]05-15-2025 NoteHNO ID: [id number] Author: KATINA HOWE MA Service: ? Author Type: Fbi Profiler Type: Progress Notes Filed: 09/27/2024 15:14 Note Text: Patient Identification confirmed: yes. Injection given and documented on JUL per provider order. [facility]04-16-2025 NoteHNO ID: [id number] Author: KATINA HOWE MA Service: ? Author Type: Fbi Profiler Type: Progress Notes Filed: 08/29/2024 14:49 Note Text: Patient Identification confirmed: yes. Injection given and documented on JUL per provider order. [facility]04-16-2025 History of Present illness Narrative* Maite Merritt PA-C - 08/29/2024 2:30 PM EDT Images from the original note were not included. NAME: Jeannette Hurtado [facility] NO.: [id number] DATE OF SERVICE: August 29, 2024 Some elements in this clinic note that are critical to medical decision making have been carefully reviewed and included from a prior clinic note dated:June 06, 2024 (Shaina) Referring Provider: Dr. Klaudia Gomez Additional Clinicians involved in Jeannette Hurtado's care: DIAGNOSIS: Anemia, fatigue ASSESSMENT: 58 year old woman with anemia and associated fatigue. She has obstructive sleep apnea but is compliant with CPAP. We advised her to have a cardiac workup done because the degree of anemiadid not match the degree of fatigue. She ended up failing a stress test and now has two coronary stents. CArdiology just stopped her Plavix 08/2024. Her labs from 08/22/2024 showed improvement in her ferritin after receiving 1000 mg total of venofer in March 2024. She continues her folic acid daily and monthly B12 IM injections. Her neutrophils and WBC remain elevated and I have ordered additional labs for this today. She will return in 3 months with repeat labs. HPI: CASE HISTORY: Reverse Chronological Order 03/27/24-04/10/24 - venofer 1000 mg total given 10/02/24 - B12 IM monthly started 02/21/23-03/07/23 - venofer 900mg total given 01/05/2023 - CBC 9.2 > 11.2 / 35.6 < 277 11/12/2022 - Colonoscopy is negative. Recommended colonoscopy 10 years. Updated Visit, August 29, 2024: Adalgisa returns for follow up. Remains on folic acid daily and B12 IM monthly. Still has fatigue. Nofever, chills, nausea, vomiting, weight loss, lymph node enlargement or other symptoms. Plavix stopped last week by cardiology. WBC and neutrophils remain elevated. Iron studies remain stable. Updated Visit, June 06, 2024: Patient here for follow up. Received venofer 200 x 5 doses in March 2024. Her energy level has been better. Here for follow up. Remains on folic acid and gets her B12 injections monthly. She has fallen a few times since her last visit. She lost her balance. No dizziness. No loss of consciousness. No headaches. Some blurred vision at times. She is on a new medicine, solifenacin for urinary incontinence for 2 months and it is helping. Updated Visit, March 14, 2024: Patient is [...] 7 years. Patient has had frequent headaches dueto stress at work, gotten worse the past [...] replacement / balancing that is offered by [facility] Updated Visit, July 11, 2023: Jeannettemarc Hurtado [...] PERFORMANCE STATUS: 1 PHYSICAL EXAMINATION: Vitals: BP 145/80 Pulse 61 Temp (Src) 97.8 (Temporal) Resp 16 Ht 5' 5.984 (1.68m) Wt 202lb 6.1 oz (91.8kg) SpO2 99% BMI 32.68 kg/(m^2). Body surface area is 2.07 meters squared. General: Alert and oriented, no distress, pleasant and cooperative. Heart: Regular, normal S1 and S2, no murmurs, rubs, or gallops Lungs: Clear to auscultation bilaterally Abdomen: Benign Extremities: Feet/ankles without edema, posterior tibial pulses full and symmetrical ALLERGIES: ALLERGIES Allergen Reactions Compazine [Prochlor* Latex Unknown MEDICATIONS: solifenacin 10 mg tablet Take 1 tablet by mouth once daily. PLAVIX 75 mg tablet Take 75 mg by mouth once daily. folic acid 1 mg tablet Take 1 [...] breath. LABORATORY VALUES: WBC (k/uL) Date Value 08/22/2024 11.59 (H) RBC (m/uL) Date Value 08/22/2024 3.88 (L) Hemoglobin (g/dL) Date Value 08/22/2024 12.5 Hematocrit (%) Date Value 08/22/2024 37.0 MCV (fL) Date Value 08/22/2024 95.4 MCH (pg) Date Value 08/22/2024 32.2 MCHC (g/dL) Date Value 08/22/2024 33.8 RDW-CV (%) Date Value 08/22/2024 13.1 Platelet Count (k/uL) Date Value 08/22/2024 205 MPV (fL) Date Value 08/22/2024 9.7 Glucose (mg/dL) Date Value 08/22/2024 149 (H) BUN (mg/dL) Date Value 08/22/2024 21 Creatinine (mg/dL) Date Value 08/22/2024 0.96 Sodium (mmol/L) Date Value 08/22/2024 139 Potassium (mmol/L) Date Value 08/22/2024 4.3 Chloride (mmol/L) Date Value 08/22/2024 102 CO2 (mmol/L) Date Value 08/22/2024 26 Protein, Total (g/dL) Date Value 08/22/2024 7.2 Albumin (g/dL) Date Value 08/22/2024 4.6 Calcium, Total (mg/dL) Date Value 08/22/2024 10.0 Alkaline Phosphatase (U/L) Date Value 08/22/2024 103 Bilirubin, Total (mg/dL) Date Value 08/22/2024 0.5 AST (U/L) Date Value 08/22/2024 30 ALT (U/L) Date Value 08/22/2024 22 DIAGNOSIS: (D72.828) Other elevated white blood cell (WBC) count (primary encounter diagnosis) Plan: MYELOPROLIFERATIVE NEOPLASM PANEL BLOOD, COMPREHENSIVE METABOLIC PANEL, IRON AND TIBC, COMPLETE BLOOD COUNT AND DIFFERENTIAL, FERRITIN, VITAMIN B12, FOLATE, SERUM, BCR/ABL1 P210 AND P190 DIAGNOSTIC PCR BLOOD, CANCELED: BCR/ABL1 P210 AND P190 DIAGNOSTIC PCR BLOOD (D50.8) Iron deficiency anemia secondary to inadequate dietary iron intake (D53.1) Megaloblastic anemia due to vitamin B12 deficiency (E53.8) Folate deficiency PAST MEDICAL HISTORY Diagnosis Date Anemia Anxiety Elevated glucose Hypercholesteremia Hypothyroidism Iron deficiency anemia secondary to inadequate dietary iron intake 02/07/2023 Migraines PAST SURGICAL HISTORY Procedure Laterality Date COLONOSCOPY 10/2022 PAST SURGICAL HISTORY OF Bilateral sweat glands removed PAST SURGICAL HISTORY OF Left Foot tendon x2 PAST SURGICAL HISTORY OF Cardiac Stent x2 Social History Tobacco Use Smoking status: Never Smokeless tobacco: Never Vaping Use Vaping status: Never Used Substance Use Topics Alcohol use: Yes Drug use: Never FAMILY HISTORY Problem Relation Age of Onset Hypertension Mother Mental illness Mother Cancer Father Hypertension Father Heart disease Father I spent a total of 26 minutes on the date of the service which included preparing to see the patient, [id number] patient care, completing clinical documentation, performing a medically appropriate examination, counseling and educating the patient/family/caregiver, ordering medications, tests, or p rocedures, independently interpreting results (not separately reported), communicating results to the patient/family/caregiver, and care coordination (not separately reported). Maite Merritt PA-C Hematology and Oncology Services Provided at: [place], [place] CC: Klaudia Gomez MD [address] [place] [phone] documented in this encounterBarney [facility]04-16-2025 NoteHNO ID: [id number] Author: MAITE MERRITT PA-C Service: ? Author Type: Physician Staff Command And Control Officer Type: Progress Notes Filed: 08/29/2024 14:58 Note Text: NAME: Veronica Hurtadolyn CLINIC NO.: [id number] DATE OF SERVICE: August 29, 2024 Some elements in this clinic note that are critical to medical decision making have been carefully reviewed and included from a prior clinic note dated:June 06, 2024 (Shaina) Referring Provider: Dr. Klaudia Gomez Additional Clinicians [...] test and now has two coronary stents. CArdiology just stopped her Plavix 08/2024. Her labs from 08/22/2024 showed improvement in her ferritin after receiving 1000 mg total of venofer in March 2024. She continues her folic acid daily and monthly B12 IM injections. Her neutrophils and WBC remain elevated and I have ordered additional labs for this today. She will return in 3 months with repeat labs. HPI: CASE HISTORY: Reverse Chronological Order 03/27/24-04/10/24 - venofer 1000 mg total given 10/02/24 - B12 IM monthly started 02/21/23-03/07/23 - venofer 900mg total given 01/05/2023 - CBC 9.2 > 11.2 / 35.6 < 277 11/12/2022 - Colonoscopy is negative. Recommended colonoscopy 10 years. Updated Visit, August 29, 2024: Adalgisa returns for follow up. Remains on folic acid daily and B12 IM monthly. Still has fatigue. No fever, chills, nausea, vomiting, weight loss, lymph node enlargement or other symptoms. Plavix stopped last week by cardiology. WBC and neutrophils remain elevated. Iron studies remain stable. Updated Visit, June 06, 2024: Patient here for follow up. Received venofer 200 x 5 doses in March 2024. Her energy level has been better. Here for follow up. Remains on folic acid and gets her B12 injections monthly. She has fallen a few times since her last visit. She lost her balance. No dizziness. No loss of consciousness. No headaches. Some blurred vision at times. She is on a new medicine, solifenacin for urinary incontinence for 2 months and it is helping. Updated Visit, March 14, 2024: Patient is [...] replacement / [facility] Updated Visit, July 11, 2023: Jeannette Hurtado [...] presents on consultation for anemia. Hemoglobin in (more content not included)...[facility]04-08-2025 Evaluation note* Diagnosis Onset Date Resolution Status Admit Date Chronic fatigue acuteApril 2024 12:59pmCoronary artery disease without angina pectorisacute August 21, 2024 12:59pmStatus post percutaneous transluminal coronary angioplastyacuteApril 2024 12:59pm [facility] Work Phone: 1(179) 959-873504-07-2025 Telephone encounter Note* Telephone Encounter - Katina Howe MA - 08/20/2024 11:25 AM EDT Patient coming in Tuesday08/29/24 for follow up with labs. Please add lab orders. Thanks. Katina Howe MA [facility]04-01-2025 History of Present illness Narrative* Katina Howe MA - 08/29/2024 2:48 PM EDT Patient Identification confirmed: yes. Injection given and documented on JUL per provider order. Katina Howe MA documented in this encounter[address]01-2025 History of Present illness Narrative* Katina Howe MA - 09/27/2024 3:13 PM EDT Patient Identification confirmed: yes. Injection given and documented on JUL per provider order. Katina Howe MA documented in this encounterBarney [facility]04-01-2025 History of Present illness Narrative* Katina Howe MA - 10/24/2024 2:18 PM EDT Patient Identification confirmed: yes. Injection given and documented on MAR per provider order. Katina Howe MA documented in this encounter[address]01-2025 History of Present illness Narrative* Katina Howe MA - 01/17/2025 2:07 PM EDT Patient Identification confirmed: yes. Injection given and documented on JUL per provider order. Katina Howe MA documented in this encounter[address]01-2025 Miscellaneous Notes* Telephone Encounter - Katina Howe MA - 08/20/2024 11:25 AM EDT Patient coming in Tuesday08/29/24 for follow up with labs. Please add lab orders. Thanks. Katina Howe MA documented in this encounterBarney [facility]03-10-2025 History of Present illness Narrative* Pura Lara, DO - 07/23/2024 3:30 PM EDT Images from the original note were not included. Subjective Jeannette Hurtado is a 58 y.o. female HPI Chief Complaint Patient presents with Pessary Check Patient here for pessary maintenance. She has the Incontinence dish #5 inserted. Patient reports that she has been sick most of June with coughing and sneezing. She states this is her first time in awhile to be able to control her bladder. Urine sample collected. Past Medical History: Diagnosis [...] History: Procedure Laterality Date ANKLE SURGERY Left 2012 ankle tendon repair CARDIAC CATHETERIZATION 06/2023 2 stents placed CAST / SPLINT / FX Left casted- broken L heel COLONOSCOPY DILATION AND CURETTAGE 2016 DILATION AND CURETTAGE OF UTERUS 2017 OTHER SURGICAL HISTORY 2007 sweat gland removed OTHER SURGICAL HISTORY H/O heart artery stent OTHER SURGICAL HISTORY percutaneou transluminal coronary angioplasty VAGINAL DELIVERY Family History Problem Relation Name Age of Onset Hypertension Mother kelvin paul zhang Glaucoma Mother kelvin palu zhang Macular degeneration Mother kelvin paul zhang Osteoarthritis Mother kelvin paul zhang Asthma Mother kelvin paul zhang Hypertension Father kalpana zhang Heart disease Father kalpana zhang Other (CABG) Father kalpana zhang Coronary artery disease Father kalpana zhang Other (History of heart arery stent) Father kalpana zhagn Pancreatic cancer Father kalpana zhang Cancer Father kalpana zhang Heart failure Father kalpana zhang Glaucoma Sister Heart disease Brother Hypertension Sibling Breast cancer Mother's Sister wan nunez Breast cancer Father's Sister jean marie law [...] mg in the evening. Take with meals. methylPREDNISolone (Medrol Dospak) 4 MG tablets Follow schedule on package instructions 21 tablet 0 Microlet Lancets misc Multiple Vitamins-Minerals (Multi Complete) [...] (10 mg) by mouth Daily 90 tablet 1 No current facility-administered medications on file prior to visit. Review of Systems Constitutional: Negative for chills and fever. Respiratory: Negative for shortness of breath. Cardiovascular: Negative for chest pain. Gastrointestinal: Negative for nausea and vomiting. Genitourinary: Negative for dysuria, pelvic pain, vaginal bleeding, vaginal discharge and vaginal pain. Neurological: Negative for dizziness and headaches. Objective BP 158/82 Wt 200 lb LMP (LMP Unknown) BMI 31.32 kg/m Physical Exam Constitutional: Appearance: Normal appearance. Genitourinary: No lesions in the vagina. Genitourinary Comments: Pessary in appropriate position. Pessary removed, cleansed, and re-insertedwithout difficulty. Pessary remained in place with valsalva Right Labia: No lesions. Left Labia: No lesions. Vaginal granulation tissue (in posterior fornix with scant bleeding) present. No vaginal discharge. Anterior vaginal [...] discussed. - Urine dip 2. Cystocele, midline Continue current treatment, stable, continue to monitor 3. Mixed urge and stress incontinence documented in this encounterRanken Jordan Pediatric Specialty HospitalTmyzzxgtvb20-94-1936 NoteHNO ID: [id number] Author: DANGELO UMANZOR MA Service: ? Author Type: Fbi Profiler Type: Progress Notes Filed: 07/03/2024 14:39 Note Text: Patient Identification confirmed: yes. Injection given and documented on JUL per provider order. Dangelo Umanzor, [facility]02-18-2025 History of Present illness Narrative* Dangelo Umanzor MA - 07/03/2024 2:38 PM EST Patient Identification confirmed: yes. Injection given and documented on JUL per provider order. Dangelo Umanzor MA documented in this encounterBarney Children'S Medical Center02-11-2025 History of Present illness Narrative* Devan Nunez NP - 06/26/2024 5:25 PM EST Images from the original note were not included. [address] , [address] [facility], [address] P: [phone] F: [phone] HPI Historian of HPI: patient Jeannette Hurtado is a 58 y.o. female who presents today to the Urgent Care with the following complaints and denials which have been present for 2 week(s) C/O Denies Symptom Comments [x] [] Runny Nose [] [x] Difficulty Swallowing [x] [] Sore Throat [x] [] Cough [] [x] Ear Pain [] [x] Fever [] [x] Chills [x] [] Nasal Congestion [] [x] Myalgia [x] [] Sinus Pain [x] [] Sinus Pressure Additional Comments: pt has taken decongestants OTC medication with relief Started with diarrhea and vomiting that lasted 2 days. ROS A complete system ROS was performed and negative aside from the pertinent positives noted in the HPI and PE. IH Testing: PHYSICAL EXAM Examination General Examination: General Examination: alert, oriented, normal affect, well-appearing, in no acute distress, well developed, well nourished. Head: normocephalic, atraumatic Eyes: sclera non-icteric Ears: auditory canal clear, tympanic membrane intact, clear Nose: Slight congestion noted Oral Cavity: no lesions, mucosa moist Throat: PND present Neck/Thyroid: no carotid bruit Lymph Nodes: no cervical adenopathy Heart: no murmurs, regular rate and rhythm, S1, S2 normal Lungs: Diffuse coarse BS. No wheezes, rales, rhonchi. Extremities: no edema, no cyanosis Psych: alert, oriented, cognitive function intact, cooperative with exam. TREATMENT PLAN 1. Acute bronchitis, unspecified organism (Primary) Discussed diagnosis, use of azithromyin, medrol and capmist DM. The most common side effects of each med are discussed. She is advised to continue to drink plenty of fluids, continue otc tylenol as directed, continue all medication as ordered and follow up for continued or worsening symptoms. - methylPREDNISolone (Medrol Dospak) 4 MG tablets; Follow schedule on package instructions Dispense: 21 tablet; Refill: 0 - azithromycin (Zithromax) 250 MG tablet; Take 1 tablet (250 mg) by mouth Daily for 5 days Dispense: 6 tablet; Refill: 0 2. Acute cough - yjsckmirpcenuws-DD-HZ 60-15-400 MG tablet; Take 1 tablet by mouth in the morning and 1 tablet at noon and 1 tablet in the evening and 1 tablet before bedtime. Do all this for 10 days. Dispense: 40 tablet; Refill: 0 - mqgesrzkpbxybay-fqooryr-jpexYRScoow (Mytussin DAC) 30-10-100 MG/5ML solution; Take 10 mL by mouthat bedtime for 10 days Dispense: 100 mL; Refill: 0 documented in this encounterRanken Jordan Pediatric Specialty [id number] NoteHNO ID: [id number] Author: MARIELA SARMIENTO MA Service: ? Author Type: Fbi Profiler Type: Progress Notes Filed: 06/06/2024 14:57 Note Text: Patient Identification confirmed: yes. Injection given and documented on MAR per provider order. Mariela Sarmiento [facility]01-22-2025 History of Present illness Narrative* Mariela Sarmiento MA - 06/06/2024 2:56 PM EST Patient Identification confirmed: yes. Injection given and documented on MAR per provider order. Mariela Sarmiento MA documented in this encounterBarney Children'S Medical Center01-22-2025 History of Present illness Narrative* Maite Merritt PA-C - 06/06/2024 2:30 PM EST Images from the original note were not included. NAME: Jeannette Hurtado CLINIC NO.: [id number] DATE OF SERVICE: June 06, 2024 (Shaina) Some elements in this clinic note that are critical to medical decision making have been carefully reviewed and included from a prior clinic note dated: March 14, 2024 (Shaina) Referring Provider: Dr. Klaudia Gomez Additional Clinicians involved in Jeannette Hurtado's care: DIAGNOSIS: Anemia, fatigue ASSESSMENT: 58 year old woman with anemia and associated fatigue. She has obstructive sleep apnea but is compliant with CPAP. We advised her to have a cardiac workup done because the degree of anemiadid not match the degree of fatigue. She ended up failing a stress test and now has two coronary stents. Her CBC today shows mild elevated of neutrophils and white blood cells, likely reactive. Will monitor and if increase, will do appropriate work up. Her hemoglobin remains stable and her symptoms haveimproved after IV iron in March 2024. She will continue her folic acid and get B12 today and monthly. She will return in 12 weeks for labs and follow up. If her iron studies from today indicate a need for additional iron, we will arrange that. If the continues to have falls, I recommended she see her PCP HPI: CASE HISTORY: Reverse Chronological Order 01/05/2023 - CBC 9.2 > 11.2 / 35.6 < 277 11/12/2022 - Colonoscopy is negative. Recommended colonoscopy 10 years. Updated Visit, June 06, 2024: Patient here for follow up. Received venofer 200 x 5 doses in March 2024. Her energy level has been better. Here for follow up. Remains on folic acid and gets her B12 injections monthly. She has fallen a few times since her last visit. She lost her balance. No dizziness. No loss of consciousness. No headaches. Some blurred vision at times. She is on a new medicine, solifenacin for urinary incontinence for 2 months and it is helping. Updated Visit, March 14, 2024: Patient is [...] 7 years. Patient has had frequent headaches dueto stress at work, gotten worse the past [...] replacement [facility] Updated Visit, July 11, 2023: Jeannette [...] PERFORMANCE STATUS: 1 PHYSICAL EXAMINATION: Vitals: BP 144/84 Pulse 83 Temp (Src) 97.3 (Temporal) Resp 16 Ht 5' 5.984 (1.68m) Wt 205lb 0.4 oz (93.0kg) SpO2 96% BMI 33.11 kg/(m^2). Body surface area is 2.08 meters squared. General: Alert and oriented, no distress, pleasant and cooperative. Heart: Regular, normal S1 and S2, no murmurs, rubs, or gallops Lungs: Clear to auscultation bilaterally Abdomen: Benign Extremities: Feet/ankles without edema, posterior tibial pulses full and symmetrical ALLERGIES: ALLERGIES Allergen Reactions Compazine [Prochlor* Latex Unknown MEDICATIONS: PLAVIX 75 mg tablet Take 75 mg by mouth once daily. folic acid 1 mg tablet Take 1 [...] breath. LABORATORY VALUES: WBC (k/uL) Date Value 06/06/2024 15.89 (H) RBC (m/uL) Date Value 06/06/2024 4.48 Hemoglobin (g/dL) Date Value 06/06/2024 14.3 Hematocrit (%) Date Value 06/06/2024 42.3 MCV (fL) Date Value 06/06/2024 94.4 MCH (pg) Date Value 06/06/2024 31.9 MCHC (g/dL) Date Value 06/06/2024 33.8 RDW-CV (%) Date Value 06/06/2024 13.4 Platelet Count (k/uL) Date Value 06/06/2024 288 MPV (fL) Date Value 06/06/2024 9.4 Glucose (mg/dL) Date Value 06/06/2024 132 (H) BUN (mg/dL) Date Value 06/06/2024 24 (H) Creatinine (mg/dL) Date Value 06/06/2024 0.92 Sodium (mmol/L) Date Value 06/06/2024 137 Potassium (mmol/L) Date Value 06/06/2024 4.0 Chloride (mmol/L) Date Value 06/06/2024 98 CO2 (mmol/L) Date Value 06/06/2024 27 Protein, Total (g/dL) Date Value 06/06/2024 7.3 Albumin (g/dL) Date Value 06/06/2024 4.7 Calcium, Total (mg/dL) Date Value 06/06/2024 10.0 Alkaline Phosphatase (U/L) Date Value 06/06/2024 145 (H) Bilirubin, Total (mg/dL) Date Value 06/06/2024 0.5 AST (U/L) Date Value 06/06/2024 28 ALT (U/L) Date Value 06/06/2024 27 DIAGNOSIS: (D50.8) Iron deficiency anemia secondary to inadequate dietary iron intake (primary encounter diagnosis) (D53.1) Megaloblastic anemia due to vitamin B12 deficiency (E53.8) Folate deficiency PAST MEDICAL HISTORY Diagnosis Date Anemia Anxiety Elevated glucose Hypercholesteremia Hypothyroidism Iron deficiency anemia secondary to inadequate dietary iron intake 02/07/2023 Migraines PAST SURGICAL HISTORY Procedure Laterality Date COLONOSCOPY 10/2022 PAST SURGICAL HISTORY OF Bilateral sweat glands removed PAST SURGICAL HISTORY OF Left Foot tendon x2 PAST SURGICAL HISTORY OF Cardiac Stent x2 Social History Tobacco Use Smoking status: [...] which included preparing to see the patient, [id number] patient care, completing clinical documentation, performing a medically appropriate examination, counseling and educating the patient/family/caregiver, ordering medications, tests, or p rocedures, independently interpreting results (not separately reported), communicating results to the patient/family/caregiver, and care coordination (not separately reported). Maite Merritt PA-C Hematology and Oncology Services Provided at: [place], [place] CC: Klaudia Gomez MD [address] [place] [phone] documented in this encounterBarney Children'S [facility]01-22-2025 NoteHNO ID: [id number] Author: MAITE MERRITT PA-C Service: ? Author Type: Physician Staff Command And Control Officer Type: Progress Notes Filed: 06/06/2024 15:00 Note Text: NAME: Veronica Hurtadolyn CLINIC NO.: [id number] DATE OF SERVICE: June 06, 2024 (Shaina) Some elements in this clinic note that are critical to medical decision making have been carefully reviewed and included from a prior clinic note dated: March 14, 2024 (Shaina) Referring Provider: Dr. Klaudai Gomez Additional Clinicians involved in Jeannette Hurtado's [...] test and now has two coronary stents. Her CBC today shows mild elevated of neutrophils and white blood cells, likely reactive. Will monitor and if increase, will do appropriate work up. Her hemoglobin remains stable and her symptoms have improved after IV iron in March 2024. She will continue her folic acid and get B12 today and monthly. She will return in 12 weeks for labs and follow up. If her iron studies from today indicate a need for additional iron, we will arrange that. If the continues to have falls, I recommended she see her PCP HPI: CASE HISTORY: Reverse Chronological Order 01/05/2023 - CBC 9.2 > 11.2 / 35.6 < 277 11/12/2022 - Colonoscopy is negative. Recommended colonoscopy 10 years. Updated Visit, June 06, 2024: Patient here for follow up. Received venofer 200 x 5 doses in March 2024. Her energy level has been better. Here for follow up. Remains on folic acid and gets her B12 injections monthly. She has fallen a few times since her last visit. She lost her balance. No dizziness. No loss of consciousness. No headaches. Some blurred vision at times. She is on a new medicine, solifenacin for urinary incontinence for 2 months and it is helping. Updated Visit, March 14, 2024: Patient is [...] replacement / balancing [facility] is [facility]. Updated Visit, July 11, 2023: Jeannette Hurtado [...] have access to iron studies or ferritin. (more content not included)... [facility]01-21-2025 Evaluation note* Diagnosis Onset Date Resolution Status Admit Date Ankle instability acuteJanuary 2024 7:52amPain of left thumbacuteJanuary 2024 7:52am Chronic fatigueacuteApril 2024 12:59pmCoronary artery disease without angina pectorisacuteApril 2024 12:59pmStatus post percutaneous transluminal coronary angioplastyacuteApril 2024 12:59pm [facility] Work Phone: 1(832) 439-637901-15-2025 History of Present illness Narrative* Devan Nunez NP - 05/30/2024 7:45 PM EST HPI: Historian of HPI: patient Jeannette Hurtado is a 58 y.o. female who presents today to the Urgent Care with the following complaints and denials due bilateral rib pain which has been present for 5 day(s). C/O Denies Symptom Comments [] [x] swelling [x] [] ecchymosis Right hip and back [x] [] erythema [x] [] tingling Left hand [] [x] numbness [] [x] Pain radiation [] [x] Weakness [x] [] Decreased ROM [x] [] Trauma Additional Comments: pt has taken tylenol OTC medication without relief Pt admits to cold application to the affected area Was kicked by horse and fell into a gate. ROS: A complete system ROS was performed and negative aside from the pertinent positives noted in the HPI and PE. Examination General Examination: General Examination: in no acute distress, well developed, well nourished. Head: normocephalic, atraumatic Eyes: sclera non-icteric Ears: auditory canal clear, tympanic membrane intact, clear Nose: no lesions, nares patent Oral Cavity: no lesions, mucosa moist Throat: clear Neck/Thyroid: no carotid bruit Lymph Nodes: no cervical adenopathy Skin: Right hip bruising in the shape of a horse hoof, bruising to the left ribs and back Heart: no murmurs, regular rate and rhythm, S1, S2 normal Lungs: clear to auscultation bilaterally Abdomen: No tenderness, no hepatosplenomegaly, no masses palpable Musculoskeletal: normal Extremities: no clubbing, cyanosis or edema Peripheral Pulses: normal Neurologic: nonfocal cranial nerves 2-12 grossly intact. Psych: alert, oriented, cognitive function intact, cooperative with exam 1. Struck by horse, initial encounter (Primary) The pt was kicked by her horse in the barn. She was struck in the right hip by her back hoof of which pushed her abruptly into the fencing and she fell to the ground. She has pain at the left lower back, mid back and lower ribs. - XR lumbar spine complete 4+ views - XR hips bilateral 2 views - XR forearm 2 views left - XR thoracic spine 3 views - methylPREDNISolone (Medrol Dospak) 4 MG tablets; Follow schedule on package instructions Dispense: 21 tablet; Refill: 0 2. Hematoma of right hip, initial encounter Negative hip xrays are discussed. 3. Acute left-sided low back pain with bilateral sciatica Negative spine xrays are discussed today. Discussed use of medrol and its most common side effects.She is advised to continue with the use of ice alternating with some heat. Rest the areas, continuethe medrol as ordered. May use tylenol prn as directed and to follow up as needed for continued or worsening symptoms. - methylPREDNISolone (Medrol Dospak) 4 MG tablets; Follow schedule on package instructions Dispense: 21 tablet; Refill: 0 4. Hematoma of left forearm Discussed negative xray left forearm. documented in this encounterRanken Jordan Pediatric Specialty [id number] History of Present illness Narrative* Pura Lara, DO - 04/23/2024 2:30 PM EST Images from the original note [...] History: Procedure Laterality Date ANKLE SURGERY Left 2012 ankle tendon repair CARDIAC CATHETERIZATION 06/2023 2 [...] Age of Onset Hypertension Mother kelvin paul [place] Glaucoma Mother kelvin paul jordanrst Macular degeneration Mother kelvin paul leatha Osteoarthritis Mother kelvin paul leatha Asthma Mother kelvin paul jordanrst Hypertension Father kalpana gonzalest Heart disease Father kalpana zhang Other (CABG) Father kalpana zhang Coronary artery disease Father kalpana zhang Other (History of heart arery stent) Father kalpana zhang Pancreatic cancer Father kalpana gonzalest Cancer Father kalpana zhang Heart failure Father kalpana zhang Glaucoma Sister Heart disease Brother Hypertension Sibling Breast cancer Mother's Sister wan nunez Breast cancer Father's Sister jean marie law [...] midline - Urine dip documented in this encounterRanken Jordan Pediatric Specialty [id number] History of Present illness Narrative* Pura Lara DO - 04/11/2024 10:30 AM EST Images from the original note were [...] Osteoarthritis Mother kelvin paul zhang Asthma Mother kelvin zhang Hypertension Father kalpana zhang Heart disease Father kalpana zhang Other (CABG) Father kalpana zhang Coronary artery disease Father kalpana zhang Other (History of heart arery stent) Father kalpana zhang Pancreatic cancer Father kalpana zhang Cancer Father kalpana zhang Heart failure Father kalpana zhang Glaucoma Sister Heart disease Brother Hypertension Sibling Breast cancer Mother's Sister wan nunez Breast cancer Father's Sister jean marie law [...] pessary inserted. Urinary or bowel retention, vaginal bleedingor pain precautions discussed. - Urine dip 2. [...] midline - Urine dip documented in this encounterRanken Jordan Pediatric Specialty [id number] NoteHNO ID: [id number] Author: MARE HUSAIN LSW Service: ? Author Type: Oil Expeller Operator Type: Progress Notes Filed: 03/26/2024 15:24 Note Text: Patient's name appears on the [facility] Time Treatment List for a non oncology.treatment. No psychosocial assessment is indicated. CARSON Velez Goals of Care Advance Directives are not file. SIGNATURE: KASEY Velez PATIENT NAME: Jeannette Hurtado DATE: March 26, 2024 TIME: 3:23 PM PAGER/CONTACT #:[facility]11-11-2024 History of Present illness Narrative* Mare Husain LSW - 03/26/2024 3:07 PM EST Patient's name appears on the [facility] Time Treatment List for a non oncology.treatment. No psychosocial assessment is indicated. CARSON Velez Goals of Care Advance Directives are not file. SIGNATURE: KASEY Velez PATIENT NAME: Jeannette [place]atte DATE: March 26, 2024 TIME: 3:23 PM PAGER/CONTACT #: documented in this encounterBarney Children'S Medical Center11-07-2024 History of Present illness Narrative* Pura Lara DO - 03/22/2024 1:45 PM ESTAssociated Order(s): Pessary Post-Procedure Diagnose(s): Cystocele, midline; Mixed [...] she leaks urine when she laughs, coughs, sneezingand walking. She states that she has to wear a diaper because she can't control her bladder anymore. Her symptoms have got worse over the year. Mammogram order sent to [facility]. Went through menopause late 40's, Never been [...] Mother kelvin paul leatha Glaucoma Mother kelvin paulelder zhang Macular degeneration Mother kelvin paul zhang Osteoarthritis Mother kelvin paul leatha Asthma Mother kelvin paul leatha Hypertension Father kalpana jordanrst Heart disease Father kalpana jordanrst Other (CABG) Father kalpana jordanrst Coronary artery disease Father kalpana gonzalest Other (History of heart arery stent) Father kalpana zhang Pancreatic cancer Father kalpana zhang Cancer Father kalpana zhang Heart failure Father kalpana zhang Glaucoma Sister Heart disease Brother Hypertension Sibling Breast cancer Mother's Sister wan nunez Breast cancer Father's Sister jean marie law [...] (20 mg) by mouth at bedtime 90 tablet0 [DISCONTINUED] omeprazole (PriLOSEC) [address] capsule [...] screening mammogram with tomosynthesis documented in this encounterRanken Jordan Pediatric Specialty [id number] Miscellaneous Notes* Telephone Encounter - Meghana Alamo - 03/16/2024 11:34 AM EDT Patient has been scheduled for Venofer x5 doses. Also sent patient a Scaled Inference message. She is all set, Thanks! Meghana Alamo * Telephone Encounter - Maite Merritt PA-C - 03/16/2024 10:14 AM EDT Orders are in Maite Merritt PA-C * Telephone Encounter - Meghana Alamo - 03/16/2024 10:08 AM EDT I'm not seeing Venofer orders placed or to begin an insurance auth. Can you verify orders have beenplaced? Meghana Alamo * Telephone Encounter - Kendal Sparks RN - 03/15/2024 11:08 AM EDT Pt aware and agreeable to plan of care/IV venofer x 5 doses. Pt denies questions, needs or concernsat this time; will await scheduling for appts. Lashanda/Kristen: please call to schedule Knedal Sparks RN * Telephone Encounter - Kendal Sparks RN - 03/15/2024 11:08 AM EDT ----- Message from Maite Merritt PA-C sent at 03/15/2024 11:00 AM EDT ----- Please call with low iron levels which may be causing her fatigue. Offer Venofer 200 mg IVP x 5 doses. documented in this encounterBarney Children'S Medical Center11-01-2024 Telephone encounter Note * Telephone Encounter - Meghana Alamo - 03/16/2024 11:34 AM EDT Patient has been scheduled for Venofer x5 doses. Also sent patient a Scaled Inference message. She is all set, Thanks! Meghana Alamo [facility]11-01-2024 Telephone encounter Note* Telephone Encounter - Maite Merritt PA-C - 03/16/2024 10:14 AM EDT Orders are in Maite Merritt PA-C [facility] Work Phone: 1(333) 348-983611-01-2024 Telephone encounter Note* Telephone Encounter - Meghana Alamo - 03/16/2024 10:08 AM EDT I'm not seeing Venofer orders placed or to begin an insurance auth. Can you verify orders have beenplaced? Meghana Alamo [facility]10-31-2024 Telephone encounter Note* Telephone Encounter - Kendal Sparks RN - 03/15/2024 11:08 AM EDT Pt aware and agreeable to plan of care/IV venofer x 5 doses. Pt denies questions, needs or concernsat this time; will await scheduling for appts. Lashanda/Kristen: please call to schedule Kendal Sparks RN [facility]10-31-2024 Telephone encounter Note* Telephone Encounter - Kendal Sparks RN - 03/15/2024 11:08 AM EDT ----- Message from Maite Merritt PA-C sent at 03/15/2024 11:00 AM EDT ----- Please call with low iron levels which may be causing her fatigue. Offer Venofer 200 mg IVP x 5 doses. [facility]10-30-20[facility] Nurse Note* Mariela Sarmiento MA - 03/14/2024 3:17 PM EDT Patient Identification confirmed: yes. Injection given and documented on MAR per provider order. Mariela Sarmiento MA [facility]10-30-2024 Nurse Note* Mariela Sarmiento MA - 03/14/2024 3:17 PM EDT Patient Identification confirmed: yes. Injection given and documented on MAR per provider order. Mariela Sarmiento MA documented in this encounterBarney Children'S Medical Center10-30-2024 Nurse Note* Mariela Willams MA - 03/14/2024 2:39 PM EDT Patient states that she is always tired she was doing better but over last 2 weeks she feels worse.Mariela Sarmiento MA [facility]10-30-2024 Nurse Note* Mariela Sarmiento MA - 03/14/2024 2:39 PM EDT Patient states that she is always tired she was doing better but over last 2 weeks she feels worse.Mariela Sarmiento MA documented in this encounterBarney Children'S Medical Center10-30-2024 History of Present illness Narrative* Maite Merritt PA-C - 03/14/2024 2:30 PM EDT Images from the original note were not included. NAME: Jeannette Hurtado CLINIC NO.: [id number] DATE OF SERVICE: March 14, 2024 (Shaina) Some elements in this clinic note that [...] cardiac workup done because the degree of anemiadid not match the degree of fatigue. She ended up failing a stress test and now has two coronary stents. Patient will receive B12 today and continue receiving it every 4 weeks. Due to patient's increasingfatigue, a TSH was drawn. She has not taken levothyroxine in over 7 years, as her new PCP told her she did not need it anymore. Pending iron studies and TSH, we will call patient if she needs iron infusion or refer to PCP for thyroid levels. She will continue her folic acid supplement and return tooffice in 12 weeks with labs. HPI: CASE [...] 7 years. Patient has had frequent headaches dueto stress at work, gotten worse the past [...] [facility] Updated Visit, July 11, 2023: Jeannette [...] Resp 16 Ht 5' 5.984 (1.68m) Wt 203lb 4.2 oz (92.2kg) SpO2 98% BMI 32.82 [...] which included preparing to see the patient, zevo-[id number] patient care, completing clinical documentation, performing a medically appropriate examination, counseling and educating the patient/family/caregiver, ordering medications, tests, or p rocedures, independently interpreting results (not separately reported), communicating results to the patient/family/caregiver, and care coordination (not separately reported). ANSON Sevilla The patient was seen and examined by me. The student's note was modified when appropriate. Maite Merritt PA-C Hematology and Oncology Services Provided at: [place], [place] CC: Klaudia Gomez MD [address] [place] [phone] documented in this encounterBarney Children'S Medical Center10-30-2024 NoteHNO ID: [id number] Author: MAITE MERRITT PA-C Service: ? Author Type: Physician Staff Command And Control Officer Type: Progress Notes Filed: 03/14/2024 15:35 Note Text: NAME: Jeannette Hurtado CLINIC NO.: [id number] DATE OF SERVICE: March 14, 2024 (Shaina) Some elements in this clinic note that [...] replacement / balancing that is offered by [facility] Updated Visit, July 11, 2023: Jeannette A [...] cooperative. Heart: Regular, rosa (more content not included)...[facility] 02-15-2024 Nurse Note* Mariela Sarmiento MA - 02/15/2024 2:49 PM EDT Patient Identification confirmed: yes. Injection given and documented on JUL per provider order. Mariela Sarmiento MA [facility]10-02-2024 Nurse Note* Mariela Sarmiento MA - 02/15/2024 2:49 PM EDT Patient Identification confirmed: yes. Injection given and documented on MAR per provider order. Mariela Sarmiento MA documented in this encounterBarney Children'S Medical Center09-30-2024 Telephone encounter Note * Telephone Encounter - Puneet Pleitez - 02/13/2024 3:24 PM EDT scheduled [facility] [id number] Miscellaneous Notes* Telephone Encounter - Puneet Pleitez - 02/13/2024 3:24 PM EDT scheduled * Telephone Encounter - Madina Huynh LPN - 02/09/2024 3:55 PM EDT Referral from Dr. Klaudia Gomez to Dr. Neves for MAP MAKER exam and urinary incontinence, NEW patient schedule in 1st available not back to back with NEW patient or procedure spot. documented in this encounterRanken Jordan Pediatric Specialty [id number] Telephone encounter Note* Telephone Encounter - Madina Huynh LPN - 02/09/2024 3:55 PM EDT Referral from Dr. Klaudia Gomez to Dr. Neves for MAP MAKER exam and urinary incontinence, NEW patient schedule in 1st available not back to back with NEW patient or procedure spot. [facility] Specialty [id number] Hospital Discharge instructionsAmbulatory Orders* Referral to Gastroenterology Time Frame: 02/08/24, Location: None Selected * Referral to MANAGER ASSEMBLY Time Frame: 02/08/24, Location: None Selected * Referral to Orthopedics Time Frame: 02/08/24, Location: None Selected [facility] Work Phone: 1(603) 521-497409-04-2024 Nurse Note* Katina Howe MA - 01/18/2024 3:22 PM EDT Patient Identification confirmed: yes. Injection given and documented on JUL per provider order. Katina Howe MA [facility]08-07-2024 Nurse Note* Dangelo Umaznor MA - 12/21/2023 3:06 PM EDT Patient Identification confirmed: yes. Injection given and documented on MAR per provider order. Dangelo Umanzor MA [facility]08-07-2024 Nurse Note* Dangelo Umanzor MA - 12/21/2023 3:06 PM EDT Patient Identification confirmed: yes. Injection given and documented on MAR per provider order. Dangelo Umanzor MA documented in this encounterBarney Children'S Medical Center08-07-2024 Instructions* Patient Instructions* Jose Rose MD - 12/21/2023 2:52 PM EDT B12 today and q 4 weeks Continue folic acid RTC in 12 weeks Labs same day documented in this encounterBarney Children'S Medical Center08-07-2024 History of Present illness Narrative* Jose Rose MD - 12/21/2023 2:30 PM EDT Images from the original note were not included. NAME: Veronica Hurtadolyn CLINIC NO.: [id number] DATE OF SERVICE: December 21, 2023 (José) [...] cardiac workup done because the degree of anemiadid not match the degree of fatigue. She [...] [facility] Updated Visit, July 11, 2023: Jeannette [...] Resp 16 Ht 5' 5.984 (1.68m) Wt 197lb 15.6 oz (89.8kg) SpO2 98% BMI 31.97 [...] which included preparing to see the patient, zvbp-nt-rstp patient care, completing clinical documentation, performing a medically appropriate examination, counseling and educating the patient/family/caregiver, ordering medications, tests, or procedures, independently interpreting results (not separately reported), communicating results to the patient/family/caregiver, and care coordination (not separately reported). Jose Rose MD, CPE Hematology and Oncology Services Provided at: [place], [place] CC: Klaudia Gomez MD [address] [place] [phone] documented in this encounterBarney Children'S Medical Center07-15-2024 Nurse Note* Mariela Willams MA - 11/28/2023 2:16 PM EDT Patient Identification confirmed: yes. Injection given and documented on MAR per provider order. Mariela Sarmiento MA [facility]07-15-2024 Nurse Note* Mariela Sarmiento MA - 11/28/2023 2:16 PM EDT Patient Identification confirmed: yes. Injection given and documented on MAR per provider order. Mariela Sarmiento MA documented in this encounterBarney Children'S Medical Center05-20-2024 Nurse Note* Katina Howe MA - 10/03/2023 2:03 PM EDT Patient Identification confirmed: yes. Injection given and documented on MAR per provider order. Katina Howe MA [facility]05-20-2024 Instructions* Patient Instructions* Cecily Merlos - 10/03/2023 1:46 PM EDT B12 today and q 4 weeks Rx sent for folic acid RTC in 12 weeks Labs same day documented in this encounterBarney Children'S Medical Center05-20-2024 Nurse Note* Mariela Willams MA - 10/03/2023 1:31 PM EDT Patient states that she is exhausted. Mariela Sarmiento MA [facility]05-20-2024 Nurse Note* Mariela Sarmiento MA - 10/03/2023 1:31 PM EDT Patient states that she is exhausted. Mariela Sarmiento MA documented in this encounterBarney Children'S Medical Center05-20-2024 History of Present illness Narrative* Jose Rose MD - 10/03/2023 1:15 PM EDT Images from the original note were not included. NAME: Genesis Jeannette CLINIC NO.: [id number] DATE OF SERVICE: October 03, 2023 (José) [...] cardiac workup done because the degree of anemiadid not match the degree of fatigue. She [...] replacement / balancing that is offered by [facility] Updated Visit, July 11, 2023: Jeannette Hurtado [...] Resp 16 Ht 5' 5.984 (1.68m) Wt 196lb 6.9 oz (89.1kg) SpO2 98% BMI 31.72 [...] which included preparing to see the patient, wafx-bn-[id number] patient care, completing clinical documentation, performing a medically appropriate examination, counseling and educating the patient/family/caregiver, ordering medications, tests, or procedures, independently interpreting results (not separately reported), communicating results to the patient/family/caregiver, and care coordination (not separately reported). Jose Rose MD, CPE Hematology and Oncology Services Provided at: [place], [place] Scribe Attestation: This note was scribed [...] under my direction. CC: Klaudia Gomez MD [facility] [phone] documented in this encounterBarney Children'S Medical Center05-14-2024 Telephone encounter Note * Telephone Encounter - Jazlyn Piper RN - 09/27/2023 1:16 PM EDT This encounter was opened in error. [facility]05-14-2024 Miscellaneous Notes* Telephone Encounter - Jazlyn Piper RN - 09/27/2023 1:16 PM EDT This encounter was opened in error. documented in this [facility]04-01-2024 Nurse Note* Katina Howe MA - 10/03/2023 2:03 PM EDT Patient Identification confirmed: yes. Injection given and documented on MAR per provider order. Katina Howe MA documented in this encounterBarney Children'S Medical Center04-01-2024 Nurse Note* Katina Howe MA - 01/18/2024 3:22 PM EDT Patient Identification confirmed: yes. Injection given and documented on MAR per provider order. Katina Howe MA documented in this [facility]02-26-2024 History of Present illness Narrative* Ruben Wiggins APRN.[facility] - 07/11/2023 12:52 PM EST Images from the original note were not included. NAME: GenesisJeannette [facility] NO.: [id number] DATE OF SERVICE: July 11, 2022 ([place]) [...] Resp 16 Ht 5' 5.984 (1.68m) Wt 204lb 2.3 oz (92.6kg) SpO2 99% BMI 32.97 [...] Hypertension Father Heart disease Father Ruben Wiggins APRN.[employer] Hematology and Oncology Services Provided at: [place], [place] CC: Klaudia Gomez MD [address] [facility] [phone] I spent a total of 20 minutes on the date of the service which included preparing to see the patient, nhex-gf-misk patient care, completing clinical documentation, obtaining and/or reviewing separately obtained history, performing a medically appropriate examination, counseling and educating the pat ient/family/caregiver, ordering medications, tests, or procedures, independently interpreting results (not separately reported), and communicating results to the patient/family/caregiver. documented in this encounterBarney Children'S Medical Center02-23-2024 Miscellaneous Notes* Telephone Encounter - Meghana Alamo - 07/08/2023 2:49 PM EST Appointment for Venofer cancelled. Spoke w/ patient and notified she will not receive Venofer on Tuesday and just see Ruben. Patient in agreement. Thanks! Meghana Alamo * Telephone Encounter - Nisha Rivers [facility] - 07/08/2023 1:33 PM EST Iron studies do not meet criteria for venofer infusions. Please cancel upcoming venofer appointment07/11. Thank you, Nisha Rivers [facility] documented in this encounterBarney Children'S Medical Center02-23-2024 Discharge summary Author Frances Hidalgo [facility] July 08, 2023 11:20amNote Date/TimeFebruary 2023 11:18[place] [address] Discharge Summary Signed Patient: Jeannette Hurtado MR#: [id number] : 1965 Acct:[id number] Age/Sex: 57 / F Adm Date: 4 Loc: Room: Attending Dr: Haresh Middleton MD Copies to: MD Klaudia Montiel MD W Scott Sheldon, ~ Providers Date of Discharge: 07/08/23 Discharging Provider: [...] x 18 and 2.75 x 15 mm Windsor stents respectively without complications. Patient will need [...] CL Stent 1st Vessel LAD CAMPOS - W Rodrigue Hidalgo DO s CL [...] stent occurs in the first 2-3 weeks afterimplantation, you will need to take anticoagulants for [...] doctor or pharmacist, without first calling the tin flipper who implanted the stent. If you require [...] weight lifting, stair steppers, etc. until the tin flipper approves these activities. Check with the tin flipper on your first follow-up visit. CALL YOUR BOWSTRING MAKER: -If bleeding should occur from the catheter insertion site- apply pressure to the site then immediately call us. -Report any fever, redness, drainage, increased swelling, or firmness at the catheter insertion site. Some bruising or slight swelling may be present at thetime of discharge. -Should arm or leg become cold, numb, white, or blue, contact the tin flipper immediately. -IF you should experience episodes of angina, e.g. chest discomfort, heaviness, tightness, pressureburning with or without radiation to the neck, jaw, arms or back- use 1 Nitrostat tablet under yourtongue every 5-10 minutes and up to three tablets. IF NO RELIEF, CALL 911 or GO TO THE NEAREST EMERGENCY ROOM. -Please notify our office if you have recurrent angina. The attending tin flipper or a nurse clinician should provide you with specificinstructions regarding activity, diet, medications, and further follow up for you. Follow the medication instructions provided on your discharge. If the dosages and instructions on this sheet differ from the dosage and instructions on the bottle, follow the instructions on the bottle. [facility] is not responsible for incorrect prescription [...] MD [Active Staff] - Documented By: Frances Hidalog DO 07/08/23 1116 Signed By: <Electronically signed by Frances Hidalgo DO> 07/08/23 1120 [facility] Work Phone: 1(141) 763-157302-23-2024 Consult note Author Frances Rocky [facility] July 08, 2023 11:15amNote Date/TimeFebruary 2023 11:15[place] [address] Cardiology Consult Note Signed Patient: Jeannette Hurtado MR#: [id number] : 1965 Acct:[id number] Age/Sex: 57 / F Adm Date: 4 Loc: Room: Type: [facility] Attending Dr: Haresh Middleton MD Copies to: MD Klaudia Montiel MD W Scott Sheldon, DO~ Cardiology HPI History of Present Illness Consult Date: 07/08/23 Reason for Consult: Symptomatic two-vessel ASHD, abnormal cardiovascular stress test HPI: Ms. Hurtado is a 57 year old female seen in interventional cardiology consultation at the request ofDr. Middleton for further evaluation in regards to management of symptomatic coronary artery disease discovered on today's outpatient, elective left heart catheterization. Patient has anginal symptomato logy, underwent outpatient stress imaging revealing anterior ischemia. [...] HPI Constitutional Constitutional: Reports as per HPI [facility] Medical History (Updated 07/08/23 @ 11:15 by [...] inh inhalation Q4HR PRN shortness of breath orwheezing 07/06/23 [History Confirmed 07/08/23] ascorbic acid (vitamin C) 250 mg tablet 250 mg PO DAILY 07/06/23 [History Confirmed 07/08/23] esomeprazole magnesium 20 mg capsule,delayed release (Nexium) 20 mg PO DAILY gerd 07/06/23 [HistoryConfirmed 07/08/23] metformin 1,000 mg tablet 1,000 mg [...] Code(s): I25.10 - Atherosclerotic heart disease of [place] coronary artery without angina pectoris (3) Anginal pain: Code(s): I20.9 - Angina pectoris, unspecified Plan Proceed with two-vessel PCI Documented By: Frances Hidalgo DO 07/08/23 1112 Signed By: <Electronically signed by Frances Hidalgo DO> 07/08/23 1115 [facility] Work Phone: 1(149) 298-948502-23-2024 Procedure [facility] [facility]02-08-2024 Evaluation note* Encounter Date Diagnosis Assessment Notes Treatment Notes Treatment Clinical Notes Jun, Chronic fatigue disorder (ICD-10 - G93.32) Jun,alpitations (ICD-10 - R00.2) Jun,bnormal myocardial perfusion study (ICD-10 - R94.39) [facility] Other 02-02-2024 Procedure [facility]01-18-2024 Evaluation note* Encounter Date Diagnosis Assessment Notes Treatment Notes Treatment Clinical Notes May, Palpitations (ICD-10 - R00.2) May,hronic fatigue disorder (ICD-10 - G93.32) May,Iron deficiency anemia, unspecified iron deficiency anemia type (ICD-10 - D50.9) May,History of COVID-19 (ICD-10 - Z86.16) May,Other# Chronic fatigue - Possible causes Undertreated JUAN, long COVID, [...] normal electrolytes and creatinine. EKG 11/19/22 at [facility] -sinus rhythm 62 bpm with nonspecific T wave abnormalities, normalQRS duration.EKG 05/03/23 done in clinic -sinus rhythm [...] treadmill with Cardiolyte MPI to eval exercise capacity/deconditioning and ruleout any ischemia. If this is equivocal or cannot be done, will get CPET (VO2max usually >20 mL/kg in deconditioning). - If all these are normal will refer her back to PCP. Other less likely diagnoses include lyme disease, adrenal disease, depression, stress, vitamin deficiencies, etc.- F/u in 2 months. [facility] Other 11-20-2023 Evaluation note* Encounter Date Diagnosis Assessment Notes Treatment Notes Treatment Clinical Notes Mar, Chronic fatigue (ICD-10 - R53.82 ) [facility] Other 11-20-2023 History of Present illness Narrative* Ruben Wiggins APRN.[employer] - 04/04/2023 1:00 PM EST Images from the original note were not included. NAME: Jeannette Hurtado CLINIC NO.: [id number] DATE OF SERVICE: April 04, 2023 ([place]) [...] Father Hypertension Father Heart disease Father Ruben ELIANA Wiggins.KAYLAN [facility] Provided at: [place], [place] CC: Klaudia Gomez MD [facility] [facility] [phone] I spent a total of 20 minutes on the date of the service which included preparing to see the patient, [id number] patient care, completing clinical documentation, obtaining and/or reviewing separately obtained history, performing a medically appropriate examination, counseling and educating the pat ient/family/caregiver, ordering medications, tests, or procedures, independently interpreting results (not separately reported), and communicating results to the patient/family/caregiver. documented in this encounterBar[facility]09[facility] Instructions* Patient Instructions* Jose Rose MD - 02/07/2023 2:06 PM EDT Start oral iron therapy Ferrous gluconate once daily 6 days / week If not tolerated, start IV iron. Recheck labs in 3 weeks Virtual visit 1 week after documented in this encounterBarney [facility]09-25-2023 History of Present illness Narrative* Jose Rose MD - 02/07/2023 1:15 PM EDT Images from the original note were not included. NAME: Jeannette Hurtado CLINIC NO.: [id number] DATE OF SERVICE: February 07, 2023 (José) Some elements in this clinic note that are critical to medical decision making have been carefully reviewed and included from a prior clinic note dated: January 26, 2023 Referring Provider: Klaudia Gomez Additional Clinicians involved in Jeannette Kennedy Hurtado's care: DIAGNOSIS: Anemia, fatigue ASSESSMENT: 57 [...] which included preparing to see the patient, [id number] patient care, completing clinical documentation, obtaining and/or reviewing separately obtained history, performing a medically appropriate examination, counseling and educating the pat ient/family/caregiver, ordering medications, tests, or procedures, independently interpreting results (not separately reported), communicating results to the patient/family/caregiver, and care coordination (not separately reported). Jose Rose MD, CPE [facility]ology [facility] On[facility] Services Provided at: [place], [place] CC: Klaudia Gomez (DrC) [facility] Klaudia Gomez MD [address] [place], [place] [phone] documented in this encounterBarney [facility]09-13-2023 Instructions* Patient Instructions* Jose Rose MD - 01/26/2023 4:19 PM EDT Labs this week RTC 1 weeks after to recommend treatment or follow up. documented in this encounterBarney Children'[facility] Center09-13-2023 History of Present illness Narrative* Jose Rose MD - 01/26/2023 4:11 PM EDT Images from the original note were not included. NAME: Jeannette Hurtado [facility] NO.: [id number] DATE OF SERVICE: January 26, 2023 Referring [...] > 11.2/35.6 < 277 defined at the [facility] in the regular closet there 11/12/2022 colonoscopy [...] which included preparing to see the patient, iefo-xo-ejaw patient care, completing clinical documentation, obtaining and/or reviewing separately obtained history, performing a medically appropriate examination, counseling and educating the pat ient/family/caregiver, ordering medications, tests, or procedures, independently interpreting results (not separately reported), communicating results to the patient/family/caregiver, and care coordination (not separately reported). Jose Rose MD, CPE Hematology [facility] Oncology Services Provided at: [place], [place] CC: Klaudia Gomez ([facility]) [address] [facility] [phone] Klaudia Gomez MD [address] [facility] [phone] documented in this encounterBarney Children'S [facility] Center08-29-2023 Evaluation note* Encounter Date Diagnosis Assessment Notes Treatment Notes Treatment Clinical Notes Dec, Anemia, unspecified type (ICD-10 - D64.9) [facility] Other 08-23-2023 Evaluation note* Encounter Date Diagnosis Assessment Notes Treatment Notes Treatment Clinical Notes Dec, Adult hypothyroidism (ICD-10 - E 03.9) Will recheck labs and refer back to AugustDec,Type 2 diabetes mellitus with hyperglycemia (ICD-10 - E11.65)Repeat labs. Dec,Other fatigue (ICD-10 - R53.83)Discussed will chose cardiac v. hematology referral going forward. Dec,nemia, unspecified type (ICD-10 - D64.9)Will repeat CBC. Note pallor on exam. Last Hgb was 11 in Dec,OSA (obstructive sleep apnea) (ICD-10 - G47.33)Pt states she is compliant with her machine and uses it daily. [facility] Other 08-14-2023 Evaluation note* Encounter Date Diagnosis Assessment Notes Treatment Notes Treatment Clinical Notes Dec, Type 2 diabetes jun itus with hyperglycemia, without long-term current use of insulin (ICD-10 - E11.65) [facility] Other 07-07-2023 Evaluation note* Encounter Date Diagnosis Assessment Notes Treatment Notes Treatment Clinical Notes Nov, Other fatigue (ICD-10 - R53.83) R/o abnormalities in cardiac stand point. Vitals reassuring. Will followup w repeat labs on the CBCif all other findings are normal. Nov,hronic cough (ICD-10 - R05.3)CXR not completed yet this year. Check and consider CT if needed. [facility] Other 06-14-2023 Evaluation note* Encounter Date Diagnosis Assessment Notes Treatment Notes Treatment Clinical Notes Oct, Chronic cough (ICD-10 - R05.3) [facility] Other 05-25-2023 Evaluation note* Encounter Date Diagnosis Assessment Notes Treatment Notes Treatment Clinical Notes September, Chronic cough (ICD-10 - R05.3) Discussed differential and exam. Has dry tight cough. Should improve w albuterol and steroids. September,Mild anemia (ICD-10 - D64.9)Pt agrees to referral for colonoscopy to investigate anemia September,olon cancer screening (ICD-10 - Z12.11)as above September,Type 2 diabetes mellitus with hyperglycemia, without long-term current use of insulin (ICD-10 - E11.65)Increase dose of metformin and encouraged healthier diet. [facility] Other 04-17-2023 NotePROCEDURE: XR CSPINE MIN 4 [...] Electronically authenticated by: ASHLEY PERLA Date: 2022-08-30 07:09[facility]04-10-2023 Evaluation note* Encounter Date Diagnosis Assessment Notes Treatment Notes Treatment Clinical Notes Aug, Wellness examination (ICD-10 - Z 00.00) Discussed ongoing problems, diet and exercise and stress reduction. Aug,Hypercholesteremia (ICD-10 - E78.00)Due for blood work. Continue medication. We will call with lab results. Aug,dult hypothyroidism (ICD-10 - E03.9)Chronic problem due for lab work Aug,Elevated glucose (ICD-10 - R73.09). Patient requests refill on Contour next test strips to drug Jarvis Orozco. Encouraged healthy diet and exercise to improve glucose readings Aug,ervical pain (neck) (ICD-10 - M54.2)Ongoing issue with pain radiating from neck to right occipital area. Initiate treatment with x-ray of the neck. Aug,nxiety, generalized (ICD-10 - F41.1)Due to increased stress offered to increase sertraline. Patient prefers to continue present dose. [facility] Other Chief complaint+Reason for visit Narrative* Chief Complaint 3 months referralReason for VisitChronic fatigue Coronary artery disease without angina pectoris Status post percutaneous transluminal coronary angioplasty ASHD (arteriosclerotic heart disease) Chronic GERD Depression Incontinence of urine in female Pain of left thumb Routine gynecological examination [facility] Work Phone: Chief complaint+Reason for visit Narrative* Chief Complaint 3 months referral M79.645Reason for VisitChronic fatigue Coronary artery disease without angina pectoris Status post percutaneous transluminal coronary angioplasty ASHD (arteriosclerotic heart disease) Chronic GERD Depression Incontinence of urine in female Pain of left thumb Routine gynecological examination [facility] Work Phone: Evaluation note* Diagnosis Anemia, unspecified type- Primary [facility] Diagnosis Iron deficiency anemia secondary to inadequate dietary iron intake [facility] Diagnosis Iron deficiency anemia secondary to inadequate dietary iron intake- Primary [facility] Diagnosis Iron deficiency anemia secondary to inadequate dietary iron intake- Primary [facility] Diagnosis Iron deficiency anemia secondary to inadequate dietary iron intake- Primary documented in this encounter [facility] noteNo InformationNort Medlio Other Evaluation noteNo assessment information available [facility] Work Phone: Evaluation note* Diagnosis Onset Date Resolution Status Abnormal cardiovascular stress test acuteAnginal painacuteASHD (arteriosclerotic heart disease)acute [facility] Work Phone: Evaluation note* Diagnosis OPENED IN ERROR- Primary To allow closing an encounter opened in error (used in SmartSet) documented in this encounter [facility] CenterEval[facility]* Diagnosis Iron deficiency anemia secondary to inadequate dietary iron intake- Primary documented in this encounter [facility] note* Diagnosis Anemia, unspecified type- Primary documented in this encounter [facility] note* Diagnosis Iron deficiency anemia secondary to inadequate dietary iron intake- Primary documented in this encounter [facility] note* Diagnosis Iron deficiency anemia secondary to inadequate dietary iron intake- Primary documented in this encounter [facility] note* Diagnosis Iron deficiency anemia secondary to inadequate dietary iron intake- Primary documented in this encounter [facility] note* Diagnosis Anemia, unspecified type- Primary Iron deficiency anemia secondary to inadequate dietary iron intake Megaloblastic anemia due to vitamin B12 deficiency Other vitamin B12 deficiency anemia Folate deficiency Other B-complex deficiencies documented [facility] this encounter [facility]* Diagnosis Onset Date Resolution Status Chronic fatigue acuteCoronary artery disease without angina pectorisacuteStatus post percutaneous transluminal coronary angioplastyacuteASHD (arteriosclerotic heart disease)acuteChronic GERDacuteDepressionacuteIncontinence of urine in female acutePain of left thumbacuteRoutine gynecological examinationacute [facility] Work Phone: Evaluation note* Diagnosis Iron deficiency anemia secondary to inadequate dietary iron intake- Primary documented in this encounter [facility] note* Diagnosis Iron deficiency anemia secondary to inadequate dietary iron intake- Primary Megaloblastic anemia due to vitamin B12 deficiency Other vitamin B12 deficiency anemia Folate deficiency Other B-complex deficiencies Malaise and fatigue Other malaise and fatigue documented in this encounter [facility]* Diagnosis Iron deficiency anemia secondary to inadequate dietary iron intake- Primary documented in this encounter [facility]* Diagnosis Mixed urge and stress incontinence- Primary Mixed incontinence urge and stress (male)(female) Cystocele, midline Fitting and adjustment of pessary Other screening mammogram [facility] encounter [facility] Diagnosis Iron deficiency anemia secondary to inadequate dietary iron intake- Primary documented in this encounter [facility] note* Diagnosis Iron deficiency anemia secondary to inadequate dietary iron intake- Primary documented in this encounter [facility] note* Diagnosis Iron deficiency anemia secondary to inadequate dietary iron intake- Primary [facility] Diagnosis Iron deficiency anemia secondary to inadequate dietary iron intake- Primary [facility] this encounter [facility]* Diagnosis Iron deficiency anemia secondary to inadequate dietary iron intake- Primary documented in this encounter [facility]* Diagnosis Encounter for pessary maintenance- Primary Mixed urge and stress incontinence Mixed incontinence urge and stress (male)(female) Cystocele, midline documented in this encounter [facility]* Diagnosis Mixed urge and stress incontinence Mixed incontinence urge and stress (male)(female) documented in this encounter [facility]* Diagnosis Iron deficiency anemia secondary to inadequate dietary iron intake- Primary Megaloblastic anemia due to vitamin B12 deficiency Other vitamin B12 deficiency anemia Folate deficiency Other B-complex deficiencies [facility] this encounter [facility]* Diagnosis Iron deficiency anemia secondary to inadequate dietary iron intake- Primary [facility] this encounter [facility]* Diagnosis Struck by horse, initial encounter- Primary Hematoma of right hip, initial encounter Acute left-sided low back pain with bilateral sciatica Hematoma of left forearm documented in this encounter [facility]* Diagnosis Acute bronchitis, unspecified organism- Primary Acute cough documented in this encounter [facility]* Diagnosis Encounter for pessary maintenance- Primary Cystocele, midline Mixed urge and stress incontinence Mixed incontinence urge and stress (male)(female) documented in this encounter [facility]* Diagnosis Iron deficiency anemia secondary to inadequate dietary iron intake- Primary Megaloblastic anemia due to vitamin B12 deficiency Other vitamin B12 deficiency anemia Folate deficiency Other B-complex deficiencies Malaise and fatigue Other malaise and fatigue documented [facility]* Diagnosis Iron deficiency anemia secondary to inadequate dietary iron intake- Primary documented in this encounter [facility]* Diagnosis Other elevated white blood cell (WBC) count- Primary Iron deficiency anemia secondary to inadequate dietary iron intake Megaloblastic anemia due to vitamin B12 deficiency Other vitamin B12 deficiency anemia Folate deficiency Other B-complex deficiencies documented in this encounter [facility]* Diagnosis Type 2 diabetes mellitus with hyperglycemia, without long-term current use of insulin (CMS/HCC)- Primary Vitamin D deficiency Hyperlipemia, mixed (CMS/HCC) Mixed hyperlipidemia Primary hypertension (CMS/HCC) Unspecified essential hypertension Class 1 obesity due to excess calories with serious comorbidity and body mass index (BMI) of 33.0 to 33.9 in adult Encounter for dietary consultation documented in this encounter [facility]* Diagnosis Encounter for pessary maintenance- Primary Cystocele, midline Mixed urge and stress incontinence Mixed incontinence urge and stress (male)(female) Acute vaginitis Unspecified vaginitis and vulvovaginitis Vaginal discharge Leukorrhea, not specified as infective Vaginal inflammation from pessary, initial encounter ([facility] documented in this encounter [facility]Evaluation note* Diagnosis Iron deficiency anemia secondary to inadequate dietary iron intake- Primary [facility] encounter [facility] Diagnosis Iron deficiency anemia secondary to inadequate dietary iron intake- Primary Folate deficiency Other B-complex deficiencies Megaloblastic anemia due to vitamin B12 deficiency Other vitamin B12 deficiency anemia documented in this encounter [facility]* Diagnosis Anemia, unspecified type documented in this encounter [facility]* Diagnosis Mixed urge and stress incontinence Mixed incontinence urge and stress (male)(female) documented in this encounter [facility] HealthcareEvaluation note* Diagnosis Type 2 diabetes mellitus with hyperglycemia, without long-term current use of insulin ([facility])- Primary Vitamin D deficiency Hyperlipemia, mixed Mixed hyperlipidemia Primary hypertension Unspecified essential hypertension Encounter for dietary consultation Class 1 obesity due to excess calories with serious comorbidity and body mass index (BMI) of 32.0 to 32.9 in adult documented in this encounter [facility] HealthcareEvaluation note* Diagnosis Encounter for pessary maintenance- Primary Cystocele, midline Mixed urge and stress incontinence Mixed incontinence urge and stress (male)(female) documented in this encounter [facility] HealthcareHistory and physical note Author Fabby Teran [facility] HospitalNote Date/TimeMay 2024 9:37[place] [address] Gastroenterology H&P Signed Patient: Jeannette Hurtado MR#: [id number] : 1965 Acct:[id number] Age/Sex: 58 / F Adm Date: 5 Loc: Room: Type: [facility] Attending Dr: Fabby Teran MD Copies to: MD Klaudia Pizarro MD~ Date of Service: 10/05/2024 HISTORY & PHYSICAL: Patient's history with special attention to the cardiovascular, pulmonary systems and the current problem was reviewed with the patient immediately prior to the procedure. Present medications and doses reviewed in the EMR. Allergies and pertinent laboratory tests were also re viewedat this time in the EMR. The physical examination, as below, was then performed. Indication, assessment and HPI: 58-year-old female here for EGD for evaluation of dysphagia Family history of GI malignancy? No PHYSICAL EXAMINATION General appearance: NAD Skin: No jaundice Head: NC/AT Eyes: Anicteric Neck: Supple Lungs: Normal respiratory effort, no use of accessory muscles Abdomen: nondistended Neuro: Ox3. REVIEW OF SYSTEMS Constitutional: Denies malaise, fevers Cardiovascular: Denies chest pain, palpitations Respiratory: Denies shortness of breath, wheezing Gastrointestinal: As per HPI Genitourinary: Denies dysuria, polyuria Musculoskeletal: Denies joint swelling, joint stiffness Neurological: Denies confusion, numbness, tingling Endocrine: Denies fatigue Written informed consent obtained from the patient. Risks (including but not limited to perforation, infection, bloating, bleeding, need for emergent surgeryand loss of life), benefits and alternatives explained and questions answered. The patient verbalized understanding. Based on history patient is an appropriate candidate for the procedure. Fabby Teran M.D. Documented By: Fabby Teran MD 10/05/24838 Signed By: <Electronically signed by Fabby Teran MD> 10/05/24838 [facility] Work Phone: History general Narrative - Reported* Type Description Date Medical History Migraines Medical HistoryhypothyroidMedical HistoryHypercholesteremiaMedical History Anxiety, generalizedMedical HistoryElevated glucoseMedical HistoryAdult hypothyroidismSurgical HistoryBilateral Sweat glands removedSurgical HistoryLeft foot tendon [id number] Historysee above [facility] Other History general Narrative - Reported* Type Description Date Medical History Migraines Medical HistoryhypothyroidMedical HistoryHypercholesteremiaMedical History Anxiety, generalizedMedical HistoryElevated glucoseMedical HistoryAdult hypothyroidismSurgical HistoryBilateral Sweat glands removedSurgical HistoryLeft foot tendon u5Yrbftrof HistoryColonoscopy10/2022Hospitalization Historysee above [facility] Other Summary Purpose Family History No Family History Records Found Relationship Condition Age at Onset Recorded Date/T ha father Heart disease Unknown DeceasedUnknownHistory of coronary artery bypass surgeryUnknownCoronary artery diseaseUnknownHistory of coronary artery stent placementUnknownMalignant neoplasm of pancreasUnknownNot SpecifiedGlaucomaUnknownMacular degeneration Unknown Relationship Condition Age at Onset Recorded Date/T ha father Heart disease Unknown DeceasedUnknownHistory of coronary artery bypass surgeryUnknownCoronary artery diseaseUnknownHistory of coronary artery stent placementUnknownMalignant neoplasm of pancreasUnknownmotherGlaucomaUnknownMacular degenerationUnknown HypertensionUnknownbrotherHeart diseaseUnknownsisterGlaucomaUnknown Relationship Condition Age at Onset Recorded Date/T ha mother Chronic mental illness Unknown HypertensionUnknownfatherHeart diseaseUnknownMalignant neoplasmUnknown Relationship Condition Age at Onset Recorded Date/T ha mother Chronic mental illness Unknown HypertensionUnknownfatherHeart diseaseUnknownMalignant neoplasm of pancreas Unknown Advance Directives No Advanced Directives Records Found Advance Directive Response Recorded Date/ Time Advance Directives No April 10:53am Advance Directive Response Recorded Date/ Time Advance Directives No April 11:53am Reason for Referral Reason 05/03/23 @ 1:40 Fa tigue, seeing hematology. Concerned about potential cardiac causes. Diagnosis 1 Chronic fatigue (R53 .82) Referral Organization [facility] Referring Provider First Name Klaudia Referring Provider Last Name Jason Referring Provider Specialty Family [facility] Referred Organization [facility] Cardiology Referred Provider Jenifer Morgan Referred Address [address] [place] [address],[place] [address],[place], [place],[id number] Referred Provider Specialty Cardiovascul ar Disease Referral Priority Routine Referral Appointment Date 2023-05-03 General Notes Yanni Pringle 02:53:38 PM >received today, faxed P2P Yanni Pringle 04/06/2023 01:08:29 PM >pt scheduled Reason *FU 01/19 [facility] office; mild anemia, fatigue - normal colonoscopy earlier this summer. Labs scanned in. Diagnosis 1 Anemia, unspecified type (D64.9) Referral Organization [facility] [place] Referring Provider First Name Klaudia Referring Provider Last Name Jason Referring Provider Specialty [facility]in Referred Organization [facility] Referred Provider Jose Rose Referred Address [address] [place] [place], [place],[address] Referred Provider Specialty Hematology/O ncology Referral Priority Routine General Notes Yanni Pringle 03:31:52 PM >received today, attachments made, notes locked, referral faxed Reason Never had a c-s cope. has chronic mild anemia Diagnosis 1 Mild anemia (D64.9) Referral Organization [facility] [place] Referring Provider First Name Klaudia Referring Provider Last Name Jason Referring Provider Specialty [facility] Referred Organization [facility] Referred Provider Abhishek Rodriguez Referred Address [address] [place], [place],[address] Referred Provider Specialty General Surg tima Referral Priority Routine General Notes Yanni Pringle 05:13:44 PM >received today, notes attached, waiting for notes to be locked Clinical Notes [id number] Medications Administered Section Medication OrderMAR ActionAction DateDoseRateSite iron sucrose 300 mg in NaCl 0.9% 250 mL (VENOFER) 300 mg, INTRAVENOUS, at 166.67 mL/hr, Administer over 90 Minutes, ONCE, 1 dose, On Tue02/21/23 at 1330, Please conduct a 30 minute post dose observation. Refrigerate New Bag/Syringe/Kytmzu7702/21/2023 1:24 PM [id number] mg166.67 mL/hrMedication Order MAR ActionAction DateDoseRateSite iron sucrose 300 mg in NaCl 0.9% 250 mL (VENOFER) 300 mg, INTRAVENOUS, at 166.67 mL/hr, Administer over 90 Minutes, ONCE, 1 dose, On Tue03/07/23 at 1330, Please conduct a 30 minute post dose observation. Refrigerate New Bag/Syringe/[id number]/07/2023 1:27 PM [id number] mg166.67 mL/hr Chief Complaint and Reason for Visit Chief Complaint R00.2 Chief Complaint Referred By Klaudia rogers For Chronic Fat R00.2 r00.2 g93.32 Chief Complaint Referred By Klaudia rogers For Chronic Fat R00.2 1 Month Follow Up r00.2 g93.32 Abnormal Stress Chief Complaint Referred By Klaudia rogers For Chronic Fat R00.2 1 Month Follow Up r00.2 g93.32 Abnormal Stress Abnormal Stress Abnormal StressReason for VisitAbnormal cardiovascular stress test Anginal pain ASHD (arteriosclerotic heart disease) Chief Complaint Admit Date CONSULT DR. GOMEZ LT THUMB PAIN, WX Lalo true 2024 7:52am 6 months August 21, 2024 12:5 9pm Reason for Visit Admit Date Ankle instability June 05, 2024 7 :52am Pain of left thumb June 05, 2024 7 :52am Chronic fatigue August 21, 2024 12:5 9pm Coronary artery disease without angina p ectoris August 21, 2024 12:59pm Status post percutaneous transluminal co ronary angioplasty August 21, 2024 12:59pm Chief Complaint Admit Date 6 months August 21, 2024 12:5 9pm I25.10 R53.82 I27.20 R06.00 September 19 7:26am Reason for Visit Admit Date Chronic fatigue August 21, 2024 12:5 9pm Coronary artery disease without angina p ectoris August 21, 2024 12:59pm Status post percutaneous transluminal co ronary angioplasty August 21, 2024 12:59pm Chief Complaint Admit Date 6 months August 21, 2024 12:5 9pm I25.10 R53.82 I27.20 R06.00 September 19 7:26am DYSPEPSIA, GERD October 05, 2024 7:47a m DYSPEPSIA, GERD October 05, 2024 8:39a m Additional Source Comments INFORMATION SOURCE (unrecogn ized section and content) DATE CREATED AUTHOR 03/24/2020 [facility] DATE CREATED AUTHOR AUTHOR'S ORGANIZ ATION 09/02/2022 [facility] DATE CREATED AUTHOR AUTHOR'S ORGANIZ ATION 08/18/2023 [facility] DATE CREATED AUTHOR AUTHOR'S ORGANIZ ATION 11/15/2024 [facility] DATE CREATED AUTHOR AUTHOR'S ORGANIZ ATION 03/08/2025 [facility] DATE CREATED AUTHOR AUTHOR'S ORGANIZ ATION 03/09/2025 [facility] EPIC REASON FOR VISIT (unrecogniz ed section and content) ReasonCommentsAnemiaNew patient consultReasonCommentsAnemiaFollow upSpecialty Diagnoses / ProceduresReferred By ContactReferred To Contact Diagnoses Iron deficiency anemia secondary to inadequate dietary iron intake Procedures IRON SUCROSE INJECTION PER 1 MG Jose Rose MD [address] [place] [address] [place] [address] [facility] [address] [place] [address] Referral IDStatusReasonStrush center DateExpiration DateVisits RequestedVisits [id number]/25/202312/[id number]ge CommentsMedication Follow-upvenoferReasonOnset DateCommentsOpened In Error 4ReasonCommentsResultsIV Venofer x 5 dosesReasonCommentsGynecologic ExamPatient reports that she leaks urine when she laughs, coughs, sneezing and walking. She states thatshe has to wear a diaper because she can't control her bladder anymore. Her symptoms have got worseover the year. Mammogram order sent to [facility]. Went through menopause late 40's, Never been on HRT before. Last pap 02/18/23 NILM, HPV neg. Had hx of abnormal pap before. Colonoscopy 2022-negative. Patient reports vaginal dryness, would like to discuss treatment options SpecialtyDiagnoses / ProceduresReferred By ContactReferred To Contact Diagnoses Iron deficiency anemia secondary to inadequate dietary iron intake Procedures IRON SUCROSE INJECTION PER 1 MG Maite Merritt PA-C [address] [place] [address] Edmund Treat [address] [place] [address] Referral IDStatusReasonStrush center DateExpiration DateVisits RequestedVisits [id number]/1/202412/31/[id number] Check Patient here for 2 week pessary maintenance follow up. She has Incontinence ring #3 inserted. Denies discharge or odor. Urine sample collected. Patient states that she only a little better, still wearing a diaper.ReasonCommentsPessary CheckPatient here for 2 week pessary check. Patient has larger pessary, Incontinence dish #5 inserted. Patient states that her symptoms are improving with this pessary and is satisfied. She no longer has to wear a diaper . Urine sample collected.ReasonCommentsNew Med RequestReasonCommentsPessary CheckPatient here for pessary maintenance. She has the Incontinence dish #5 inserted. Patient reports that she has been sick most of June with coughing and sneezing. She states this is her first time in awhile to be able to control her bladder. Urine sample collected.ReasonCommentsLab OrdersReasonCommentsThyroid ProblemDiabetesNEW TSH IN FEBRUARY NO REFERRAL/ReasonCommentspessary maintenence Pt here for 3 mo pessary follow up. Urine dip normal. Pt states she does still have leakage, however much improved compared to prior to pessary use. Pt states she changes her pad once daily and does not go through more than that. Pt is happy with the pessary overall.ReasonCommentsRefill RequestReasonCommentsMed RefillReasonCommentsDiabetesReasonCommentsPessary CheckPatient here for 4 month pessary maintenance. Patient has Incontinence dish #5. Denies bleeding and discharge, Urine sample collected .Does have some pain when walking at times but not always. Report~75% improvement with her symptoms with the current pessary and would like to continue using the same pessary Source Comments (unrecognize d section and content) In the event this informatio n is protected by the Federal Confidentiality of Alcohol and Drug Abuse Patient Records regulations: The Federal rules restrict any use of the information to criminally investigate or prosecute any alcohol or drug abuse patient.[facility] CenterIn the event this information is protected by the Federal Confidentiality of Alcohol and Drug Abuse Patient Records regulations: The Federal rules restrict any use of the information to criminally investigate or prosecute any alcohol or drug abuse patient.[facility] CenterIn the event this information is protected by the Federal Confidentiality of Alcohol and Drug Abuse Patient Records regulations: The Federal rules restrict any use of the information to criminally investigate or prosecute any alcohol or drug abuse patient.[facility] CenterIn the event this information is protected by the Federal Confidentiality of Alcohol and Drug Abuse Patient Records regulations: The Federal rules restrict any use of the information to criminally investigate or prosecute any alcohol or drug abuse patient.[facility] CenterIn the event this information is protected by the Federal Confidentiality of Alcohol and Drug Abuse Patient Records regulations: The Federal rules restrict any use of the information to criminally investigate or prosecute any alcohol or drug abuse patient.[facility] CenterIn the event this information is protected by the Federal Confidentiality of Alcohol and Drug Abuse Patient Records regulations: The Federal rules restrict any use of the information to criminally investigate or prosecute any alcohol or drug abuse patient.[facility] CenterIn the event this information is protected by the Federal Confidentiality of Alcohol and Drug Abuse Patient Records regulations: The Federal rules restrict any use of the information to criminally investigate or prosecute any alcohol or drug abuse patient.[facility] CenterIn the event this information is protected by the Federal Confidentiality of Alcohol and Drug Abuse Patient Records regulations: The Federal rules restrict any use of the information to criminally investigate or prosecute any alcohol or drug abuse patient.[facility] CenterIn the event this information is protected by the Federal Confidentiality of Alcohol and Drug Abuse Patient Records regulations: The Federal rules restrict any use of the information to criminally investigate or prosecute any alcohol or drug abuse patient.[facility] CenterIn the event this information is protected by the Federal Confidentiality of Alcohol and Drug Abuse Patient Records regulations: The Federal rules restrict any use of the information to criminally investigate or prosecute any alcohol or drug abuse patient.[facility] CenterIn the event this information is protected by the Federal Confidentiality of Alcohol and Drug Abuse Patient Records regulations: The Federal rules restrict any use of the information to criminally investigate or prosecute any alcohol or drug abuse patient.[facility] CenterIn the event this information is protected by the Federal Confidentiality of Alcohol and Drug Abuse Patient Records regulations: The Federal rules restrict any use of the information to criminally investigate or prosecute any alcohol or drug abuse patient.[facility] CenterIn the event this information is protected by the Federal Confidentiality of Alcohol and Drug Abuse Patient Records regulations: The Federal rules restrict any use of the information to criminally investigate or prosecute any alcohol or drug abuse patient.[facility] CenterIn the event this information is protected by the Federal Confidentiality of Alcohol and Drug Abuse Patient Records regulations: The Federal rules restrict any use of the information to criminally investigate or prosecute any alcohol or drug abuse patient.[facility] CenterIn the event this information is protected by the Federal Confidentiality of Alcohol and Drug Abuse Patient Records regulations: The Federal rules restrict any use of the information to criminally investigate or prosecute any alcohol or drug abuse patient.[facility] CenterIn the event this information is protected by the Federal Confidentiality of Alcohol and Drug Abuse Patient Records regulations: The Federal rules restrict any use of the information to criminally investigate or prosecute any alcohol or drug abuse patient.[facility] CenterIn the event this information is protected by the Federal Confidentiality of Alcohol and Drug Abuse Patient Records regulations: The Federal rules restrict any use of the information to criminally investigate or prosecute any alcohol or drug abuse patient.[facility] CenterIn the event this information is protected by the Federal Confidentiality of Alcohol and Drug Abuse Patient Records regulations: The Federal rules restrict any use of the information to criminally investigate or prosecute any alcohol or drug abuse patient.[facility] CenterIn the event this information is protected by the Federal Confidentiality of Alcohol and Drug Abuse Patient Records regulations: The Federal rules restrict any use of the information to criminally investigate or prosecute any alcohol or drug abuse patient.[facility] CenterIn the event this information is protected by the Federal Confidentiality of Alcohol and Drug Abuse Patient Records regulations: The Federal rules restrict any use of the information to criminally investigate or prosecute any alcohol or drug abuse patient.[facility] CenterIn the event this information is protected by the Federal Confidentiality of Alcohol and Drug Abuse Patient Records regulations: The Federal rules restrict any use of the information to criminally investigate or prosecute any alcohol or drug abuse patient.[facility] CenterIn the event this information is protected by the Federal Confidentiality of Alcohol and Drug Abuse Patient Records regulations: The Federal rules restrict any use of the information to criminally investigate or prosecute any alcohol or drug abuse patient.[facility] CenterIn the event this information is protected by the Federal Confidentiality of Alcohol and Drug Abuse Patient Records regulations: The Federal rules restrict any use of the information to criminally investigate or prosecute any alcohol or drug abuse patient.[facility] CenterIn the event this information is protected by the Federal Confidentiality of Alcohol and Drug Abuse Patient Records regulations: The Federal rules restrict any use of the information to criminally investigate or prosecute any alcohol or drug abuse patient.[facility] CenterIn the event this information is protected by the Federal Confidentiality of Alcohol and Drug Abuse Patient Records regulations: The Federal rules restrict any use of the information to criminally investigate or prosecute any alcohol or drug abuse patient.[facility] CenterIn the event this information is protected by the Federal Confidentiality of Alcohol and Drug Abuse Patient Records regulations: The Federal rules restrict any use of the information to criminally investigate or prosecute any alcohol or drug abuse patient.[facility] CenterIn the event this information is protected by the Federal Confidentiality of Alcohol and Drug Abuse Patient Records regulations: The Federal rules restrict any use of the information to criminally investigate or prosecute any alcohol or drug abuse patient.[facility] CenterIn the event this information is protected by the Federal Confidentiality of Alcohol and Drug Abuse Patient Records regulations: The Federal rules restrict any use of the information to criminally investigate or prosecute any alcohol or drug abuse patient.[facility] CenterIn the event this information is protected by the Federal Confidentiality of Alcohol and Drug Abuse Patient Records regulations: The Federal rules restrict any use of the information to criminally investigate or prosecute any alcohol or drug abuse patient.[facility] CenterIn the event this information is protected by the Federal Confidentiality of Alcohol and Drug Abuse Patient Records regulations: The Federal rules restrict any use of the information to criminally investigate or prosecute any alcohol or drug abuse patient.[facility] CenterIn the event this information is protected by the Federal Confidentiality of Alcohol and Drug Abuse Patient Records regulations: The Federal rules restrict any use of the information to criminally investigate or prosecute any alcohol or drug abuse patient.[facility] CenterIn the event this information is protected by the Federal Confidentiality of Alcohol and Drug Abuse Patient Records regulations: The Federal rules restrict any use of the information to criminally investigate or prosecute any alcohol or drug abuse patient.[facility] CenterIn the event this information is protected by the Federal Confidentiality of Alcohol and Drug Abuse Patient Records regulations: The Federal rules restrict any use of the information to criminally investigate or prosecute any alcohol or drug abuse patient.[facility] CenterIn the event this information is protected by the Federal Confidentiality of Alcohol and Drug Abuse Patient Records regulations: The Federal rules restrict any use of the information to criminally investigate or prosecute any alcohol or drug abuse patient.[facility] CenterIn the event this information is protected by the Federal Confidentiality of Alcohol and Drug Abuse Patient Records regulations: The Federal rules restrict any use of the information to criminally investigate or prosecute any alcohol or drug abuse patient.[facility] CenterIn the event this information is protected by the Federal Confidentiality of Alcohol and Drug Abuse Patient Records regulations: The Federal rules restrict any use of the information to criminally investigate or prosecute any alcohol or drug abuse patient.[facility] CenterIn the event this information is protected by the Federal Confidentiality of Alcohol and Drug Abuse Patient Records regulations: The Federal rules restrict any use of the information to criminally investigate or prosecute any alcohol or drug abuse patient.[facility] CenterIn the event this information is protected by the Federal Confidentiality of Alcohol and Drug Abuse Patient Records regulations: The Federal rules restrict any use of the information to criminally investigate or prosecute any alcohol or drug abuse patient.[facility] CenterIn the event this information is protected by the Federal Confidentiality of Alcohol and Drug Abuse Patient Records regulations: The Federal rules restrict any use of the information to criminally investigate or prosecute any alcohol or drug abuse patient.[facility] CenterIn the event this information is protected by the Federal Confidentiality of Alcohol and Drug Abuse Patient Records regulations: The Federal rules restrict any use of the information to criminally investigate or prosecute any alcohol or drug abuse patient.[facility] CenterIn the event this information is protected by the Federal Confidentiality of Alcohol and Drug Abuse Patient Records regulations: The Federal rules restrict any use of the information to criminally investigate or prosecute any alcohol or drug abuse patient.[facility] CenterIn the event this information is protected by the Federal Confidentiality of Alcohol and Drug Abuse Patient Records regulations: The Federal rules restrict any use of the information to criminally investigate or prosecute any alcohol or drug abuse patient.[facility] Care Teams (unrecognized sec tion and content) Team MemberRelationshipSpecialtyStart DateEnd Date Klaudia Gomez MD [address] [place] [address] PCP - GeneralFamily Medicine01/19/23Team MemberRelationshipSpecialtyStart DateEnd Date Klaudia Gomez MD [address] [place] [phone] PCP - GeneralFamily Medicine01/19/23Team MemberRelationshipSpecialtyStart DateEnd Date Klaudia Gomez MD [address] [facility] [place] [phone] PCP - GeneralFamily Medicine01/19/23Team MemberRelationshipSpecialtyStart DateEnd Date Klaudia Gomez MD [address] [place] [facility] [place] [place] [address] PCP - GeneralFamily Medicine01/19/23Team MemberRelationshipSpecialtyStart DateEnd Date Klaudia Gomez MD [address] [place] [facility] [place] [address] PCP - GeneralFamily Medicine01/19/23Team MemberRelationshipSpecialtyStart DateEnd Date Klaudia Gomez MD [address] [place] [place] [place] [phone] PCP - Generalmily Medicine01/19/23 Team Status: Active Member Role Status Dates Klaudia Gomez MD Primary Care Provider Active Team Status: Inactive Member Role Status Dates Klaudia Gomez MD Primary Care Provider Active Lauren Montiel ProviderActive Team Status: Inactive Member Role Status Dates Haresh Middleton MD Attending Provider Activ e Start: May 03, 2023 End: May 03, 2023 Team Status: Inactive Member Role Status Dates Klaudia Gomez MD Primary Care Provider Active Start: May 13, 2023 End: May 13eorLauren Najera ProviderActive Start: May 13, 2023 End: May 13, 2023 Team Status: Inactive Member Role Status Dates Klaudia Gomez MD Primary Care Provider Active Start: June 17, 2023 End: June 17, 2023Georgris Middleton MDAttending ProviderActive Start: June 17, 2023 End: June 17, 2023Linda Eddie , MDReferring ProviderActiveStart: June 17, 2023 End: June 17, 2023 Team Status: Inactive Member Role Status Dates Haresh Middleton MD Attending Provider Activ e Start: June 02, 2023 End: June 02, 2023 Team Status: Inactive Member Role Status Dates Klaudia Gomez MD Primary Care Provider Active Start: July 06, 2023 End: July 06, 2023Georgris Middleton MDAttending ProviderActive Start: July 06, 2023 End: July 06, 2023 Team Status: Active Member Role Status Dates Klaudia Gomez MD Primary Care Provide r, Attending Provider Active Start: July 07, 2023 Team Status: Inactive Member Role Status Dates Klaudia Gomez MD Primary Care Provider Active Start: July 08, 2023 End: July 08, 2023Georgris Middleton MDAttending ProviderActive Start: July 08, 2023 End: July 08, 2023 Team Status: Active Member Role Status Dates Klaudia Gomez MD Primary Care Provider Active Start: July 08, 2023 Haresh Middleton MDAttending Provider, Other ProviderActiveStart: July 08, 2023 Team MemberRelationshipSpecialtyStart DateEnd Date Klaudia Gomez MD [address] [place] [facility] [place] [place] [phone] PCP - GeneralFamily Medicine01/19/23Team MemberRelationshipSpecialtyStart DateEnd Date Klaudia Gomez MD [address] [place] [facility] [phone] PCP - GeneralFamily Medicine01/19/23Team MemberRelationshipSpecialtyStart DateEnd Date Klaudia Gomez MD [address] [place] [facility] [place] [place] [address] PCP - GeneralFamily Medicine01/19/23Team MemberRelationshipSpecialtyStart DateEnd Date Klaudia oGmez MD [address] [place] [place] [place] [address] PCP - GeneralFamily Medicine01/19/23Team MemberRelationshipSpecialtyStart DateEnd Date Klaudia Gomez MD [address] [place] [place] [place] [address] PCP - GeneralFamily Medicine01/19/23Team MemberRelationshipSpecialtyStart DateEnd Date Klaudia Gomez MD [address] [place] [place] [place] [address] PCP - GeneralFamily Medicine01/19/23Team MemberRelationshipSpecialtyStart DateEnd Date Klaudia Gomez MD [address] [place] [facility] [place] [place] [address] [facility] - [facility]01/19/23Team MemberRelationshipSpecialtyStart DateEnd Date Klaudia Gomez MD [address] [place] [facility] [phone] PCP - GeneralFami Medicine01/19/23 Team Status: Active Member Role Status Dates Haresh Middleton MD Long Term [facility] Care ProviderActive Team Status: Active Member Role Status Dates Klaudia Gomez MD Primary Care Provider Active Start: December 21, 2023 Jose Rose MDAttending ProviderActiveStart: December 21, 2023 Team Status: Inactive Member Role Status Dates Klaudia Gomez MD Primary Care Provider Active Start: February 06, 2024 End: February 06, 2024Georgris RonalLauren Rosario ProviderActive Start: February 06, 2024 End: February 06, 2024 Team Status: Inactive Member Role Status Dates Klaudia Gomez MD Primary Care Provide r, Attending Provider Active Start: February 08, 2024 End: February 08, 2024Team MemberRelationshipSpecialtyStart DateEnd Date Klaudia Gomez MD [address] [facility] [place] [phone] PCP - GeneralFamily Medicine01/19/23 Team Status: Inactive Member Role Status Dates Klaudia Gomez MD Primary Care Provide r, Attending Provider Active Start: February 20, 2024 End: February 20, 2024Team MemberRelationshipSpecialtyStart DateEnd Date Klaudia Gomez MD [address] [place] [place] [place] [phone] PCP - GeneralFamily Medicine01/19/23Team MemberRelationshipSpecialtyStart DateEnd Date Klaudia Gomez MD [address] [place] [place] [place] [address] PCP - GeneralFamily Medicine01/19/23Team MemberRelationshipSpecialtyStart DateEnd Date Klaudia Gomez MD [address] [place] [place] [place] [address] PCP - GeneralFamily Medicine01/19/23Team MemberRelationshipSpecialtyStart DateEnd Date Klaudia Gomez MD [address] [facility] [place] [address] PCP - GeneralFamily Medicine02/09/23Team MemberRelationshipSpecialtyStart DateEnd Date Klaudia Gomez MD [address] [place] [place] [place] [address] PCP - GeneralFamily Medicine01/19/23Team MemberRelationshipSpecialtyStart DateEnd Date Klaudia Gomez MD [address] [place] [place] [place] [address] PCP - GeneralFamily Medicine01/19/23Team MemberRelationshipSpecialtyStart DateEnd Date Klaudia Gomez MD [address] [place] [place] [place] [address] PCP - GeneralFamily Medicine01/19/23Team MemberRelationshipSpecialtyStart DateEnd Date Klaudia Gomez MD [address] [place] [place] [place] [address] PCP - GeneralFamily Medicine01/19/23Team MemberRelationshipSpecialtyStart DateEnd Date Klaudia Gomez MD [address] [facility] [place] [address] PCP - GeneralFamily Medicine02/09/23Team MemberRelationshipSpecialtyStart DateEnd Date Klaudia Gomez MD [address] [facility] [place] [address] PCP - GeneralFamily Medicine02/09/23Team MemberRelationshipSpecialtyStart DateEnd Date Klaudia Gomez MD [address] [place] [place] [place] [address] PCP - GeneralFamily Medicine01/19/23Team MemberRelationshipSpecialtyStart DateEnd Date Klaudia Gomez MD [address] [facility] [place] [address] [facility] - [facility] Medicine02/09/23Team MemberRelationshipSpecialtyStart DateEnd Date Klaudia Gomez MD [address] [facility] [place] [address] PCP - Generalmily Medicine02/09/23Team MemberRelationshipSpecialtyStart DateEnd Date Klaudia Gomez MD [address] [facility] [place] [address] PCP - Generalmily Medicine02/09/23Team MemberRelationshipSpecialtyStart DateEnd Date Klaudia Gomez MD [address] [place] [place] [phone] PCP - Generalmi Medicine01/19/23 Team Status: Inactive Member Role Status Dates Klaudia Gomez MD Primary Care Provider Active Start: June 05, 2024 End: June 05Lauren Martínez ProviderActiveStart: June 05, 2024 End: June 05, 2024 Team Status: Active Member Role Status Dates Klaudia Gomez MD Primary Care Provider Active Start: June 06, 2024 [facility] ProviderActiveStart: June 06, 2024 Team Status: Inactive Member Role Status Dates Klaudia Gomez MD Primary Care Provider Active Start: August 21, 2024 End: August 21, 2024GeorLauren Najera ProviderActiveStart: August 21, 2024 End: August 21, 2024Team MemberRelationshipSpecialtyStart DateEnd Date Klaudia Gomez MD [address] [place] [facility] [place] [address] PCP - GeneralFamily Medicine01/19/23 Team Status: Active Member Role Status Dates Klaudia Gomez MD Primary Care Provider Active Start: August 22, 2024 Haresh Middleton MDAttending ProviderActiveStart: August 22, 2024 Team Status: Active Member Role Status Dates Klaudia Gomez MD Primary Care Provider Active Start: August 29, 2024 [facility] ProviderActiveStart: August 29, 2024 Team Status: Inactive Member Role Status Dates Klaudia Gomez MD Primary Care Provider Active Start: September 19, 2024 End: September 19, 2024Georgris Middleton MDAttending ProviderActiveStart: September 19, 2024 End: September 19, 2024 Team Status: Inactive Member Role Status Dates Klaudia Gomez MD Primary Care Provider Active Start: October 05, 2024 End: October 05, 2024Fabby Teran MDAttending ProviderActiveStart: October 05, 2024 End: October 05, 2024 Team Status: Active Member Role Status Dates Klaudia Gomez MD Primary Care Provider Active Start: October 05, 2024 Fabby Teran MDAttending Provider, Other ProviderActiveStart: October 05, 2024 Team MemberRelationshipSpecialtyStart DateEnd Date Klaudia Gomez MD PCP - GeneralFamily Medicine02/09/23Team MemberRelationshipSpecialtyStart DateEnd Date Klaudia Gomez MD PCP - GeneralFamily Medicine02/09/23Team MemberRelationshipSpecialtyStart DateEnd Date Klaudia Gomez MD [address] [place] [phone] PCP - GeneralFamily Medicine10/22/24 Pura Lara DO [address] [facility] [address] [place] [address] Referring PhysicianObstetrics and Gynecology10/22/24Team MemberRelationship SpecialtyStart DateEnd Date Klaudia Gomez MD [address] [facility] [place] [address] PCP - GeneralFamily Medicine10/22/24 Pura Lara DO [address] [address] Referring PhysicianObstetrics and Gynecology10/22/24Team MemberRelationship SpecialtyStart DateEnd Date Klaudia Gomez MD [address] [place] [facility] [place] [address] PCP - GeneralFamily Medicine01/19/23Team MemberRelationshipSpecialtyStart DateEnd Date Klaudia Gomez MD [address] [place] [place] [place] [address] PCP - GeneralFamily Medicine01/19/23Team MemberRelationshipSpecialtyStart DateEnd Date Klaudia Gomez MD [address] [place] [place] [address] PCP - GeneralFamily Medicine01/19/23Team MemberRelationshipSpecialtyStart DateEnd Date Klaudia Gomez MD [address] [facility] [place] [address] PCP - GeneralFamily Medicine10/22/24 Pura Lara DO [address] [address] Referring PhysicianObstetrics and Gynecology10/22/24Te MemberRelationship SpecialtyStart DateEnd [facility] Klaudia Gomez MD [address] [place] [address] PCP - [facility]10/22/24 Pura Lara DO [address] [facility] [address] [address] Referring PhysicianObstetrics and Gynecology10/22/24Te MemberRelationship SpecialtyStart DateEnd Date Klaudia Gomez MD [address] [place] [address] PCP - [facility]10/22/24 Pura Lara DO [address] [facility] [address] [address] Referring PhysicianObstetrics and Gynecology10/22/24 Goals (unrecognized section and content) Goals may [...] BE BASED ON THE PRIMARY CLINICAL RECORDS. [facility] [employer] [facility]. provides no warranty or guarantee of the accuracy or completeness of information in this document.
== END 2025-03-13 08:58 | disposition home or self-care (01) ==
LOC: FHNEUROLOG 08:57
PROVIDERS: PCP Family Medicine; Visit Provider Psychiatry & Neurology Neurology
DX: G47.33 Obstructive sleep apnea (adult) (pediatric) (principal); G47.10 Hypersomnia, unspecified; R06.83 Snoring
CPT/HCPCS: G0463